=== PATIENT | female | born 1955 | race Caucasian/White ===

== ENCOUNTER 2017-03-07 12:57 | Emergency (ER) | payer MEDICAID ==
[2017-03-07 13:02] VITALS: BMI 44.4
[2017-03-07 13:35] LABS: BASOPHILS # (AUTO) 0.1 X10^3/uL (0.0-0.1); BASOPHILS % (AUTO) 1.3 % (0.2-1.0); EOSINOPHILS # (AUTO) 0.1 x10^3/uL (0.0-0.2); EOSINOPHILS % (AUTO) 1.1 % (0.9-2.9); HEMATOCRIT 38.4 % (36.0-47.0); LYMPHOCYTES # (AUTO) 1.9 X10^3/uL (1.3-2.9); LYMPHOCYTES % (AUTO) 18.2 % (21.0-51.0); MEAN CORPUSCULAR HEMOGLOBIN 32.7 pg (27.0-34.0); MEAN CORPUSCULAR VOLUME 96.2 fL (80.0-100.0); MEAN PLATELET VOLUME 8.5 fL (7.4-11.0); MONOCYTES # (AUTO) 0.8 x10^3/uL (0.3-0.8); MONOCYTES % (AUTO) 7.9 % (0.0-13.0); NEUTROPHILS # (AUTO) 7.5 x10^3/uL (2.2-4.8); NEUTROPHILS % (AUTO) 71.5 % (42.0-75.0); PLATELET COUNT 248 X10^3/uL (150.0-450.0); RED BLOOD COUNT 3.99 X10^6/uL (3.5-5.4); RED CELL DISTRIBUTION WIDTH 13.3 % (11.6-16.5); WHITE BLOOD COUNT 10.5 X10^3/uL (3.6-10.0)
[2017-03-07 13:53] LABS: BLOOD UREA NITROGEN 16 mg/dL (7-18); CALCIUM 8.2 mg/dL (8.5-10.1); CARBON DIOXIDE 35.6 mmol/L (21-32); CHLORIDE 100 mmol/L (98-107); CREATININE 1.29 mg/dL (0.55-1.02); GLUCOSE 86 mg/dL (65-99); SODIUM 139 mmol/L (136-145); TROPONIN I < 0.02 ng/mL (0-1.5); eGFR BLACK RACES 54 (>60); eGFR NON BLACK RACES 44 (>60)
[2017-03-07 13:57] LABS: ALANINE AMINOTRANSFERASE 33 Units/L (12-78); ALKALINE PHOSPHATASE 94 Units/L (46-116); ASPARTATE AMINO TRANSFERASE 20 Units/L (15-37); CKMB % 1.7 % (<4); CREATINE KINASE 127 Units/L (26-192); CREATINE KINASE MB 2.1 ng/mL (0-4.0); MAGNESIUM 1.9 mg/dL (1.7-2.9); TOTAL PROTEIN 6.6 g/dL (6.4-8.2)
--- NOTE | 2017-03-07 13:58 | RAD ---
Chest, one view Indication: Chest pain, shortness of breath Comparison: July 19, 2016 Findings: The cardiac silhouette is normal in size for AP technique. There are stable chronic inters titial markings bilaterally with new streaky right basilar opacities, likely reflecting atelectasis. No focal infiltrate or significant effusion is identified. Right-sided subclavian Port-A-Cath appea rs well positioned without pneumothorax. Impression: No acute cardiopulmonary disease. Reported By:
[2017-03-07] MEDS ORDERED: NS 1000 ML 1,000 ML ONE (14:13)
[2017-03-07] MEDS ORDERED: NS 1000 ML 200 ML IV ONE (14:18)
--- NOTE | 2017-03-07 14:22 | DR.GENAD ---
HPI - PCP Primary Care Physician: YADIRA - Complaint/Symptoms Chief Complaint Doctors Comments: Abdominal pain with N/V/D Chief Complaint:: PATIENT STATED SHE HAS BEEN SHORT OF BREATH AND SWELLING - Nurses notes reviewed Nurses Notes Review: Yes - Source History Provided: Patient - Mode of Arrival Mode of Arrival: Ambulatory - Timing Onset of Chief Complaint: 03/05/17 Came on: Gradually - Duration Duration: Intermittent How lon Duration: Days - Severity Severity: Moderate - Associated Signs and Symptoms Associated Signs and Symptoms: abdominal pain ,nausea and vomiting and diarrhea PMH - PMH Past Medical History: Yes Past Medical History: Anxiety, Arthritis, Asthma, COPD, Coronary Artery Disease , GERD, Hypertension Past Surgical History: Yes Surgical History: Hysterectomy, Ortho Surgery - Family History History of Family Medical Conditions: Yes Family Medical History: Hypertension - Social History Does patient currently use any type of tobacco product: Yes Have you used tobacco products in the last 12 months: Yes Type of Tobacco Use: Cigarettes How many years tobacco product used: 30 Does any household member use tobacco: No Alcohol Use: None Do you use any recreational Drugs:: No Lives With: Family Lives Where: Home - infectious screening In the last 2 months have you had wt loss of >10#?: NO Have you had fever, night sweats or hemotysis?: No Have you traveled outside the country in the last 6 months?: No Isolation: Standard ROS - Review of Systems Constitutional: Malaise, Weakness Eyes: No Symptoms Reported ENTM: No Symptoms Reported Respiratoy: No Symptoms Reported Cardiovascular: No Symptoms Reported Gastrointestinal/Abdominal: Abdominal Pain, Diarrhea, Nausea, Vomiting Genitourinary: No Symptoms Reported Neurological: No Symptoms Reported Integumentary: No Symptoms Reported Hematologic/Lymphatic: No Symptoms Reported Endocrine: No Symptoms Reported Psychiatric: No Symptoms Reported All Other Systems: Reviewed and Negative PE - Vital Signs Vitals: Temperature 98.9 F Pulse Rate 80 Respiratory Rate 20 Blood Pressure [Left Arm] 138/78 Blood Pressure [Right Arm] 133/74 Blood Pressure 95/56 O2 Sat by Pulse Oximetry 90 - General Limitations: No Limitations General Appearance: Alert, In No Apparent Distress - Head Head Exam: Normal Inspection - Eyes Eye exam: Normal Appearance, PERRL, EOMI - ENT ENT Exam: Normal Oropharynx External Ear Exam: Normal External Inspection Nose Exam: Normal Nose Exam Mouth Exam: Normal Inspection Throat Exam: Normal Inspection - Neck Neck Exam: Normal Inspection, Full ROM, Trachea Midline - Chest Chest Inspection: Normal Inspection, Symmetric Chest Wall Rise - Respiratory Respiratory Exam: Normal Lung Sounds Bilat Respiratory Exam: Bilateral Clear to Auscultation - Cardiovascular Cardiovascular Exam: Regular Rate, Normal Rhythm, Normal Heart Sounds - Abdominal Exam Abdominal Exam: Normal Inspection, Soft, Tenderness, Hyperactive Bowel Sounds Abdominal Tenderness: LLQ, Epigastrium - Extremities Extremities Exam: Normal Inspection - Back Back Exam: Normal Inspection - Neurologic Neurological Exam: Alert, Oriented X3, CN II-XII Intact - Psychiatric Psychiatric Exam: Normal Affect, Normal Mood - Skin Skin Exam: Warm, Dry, Intact, Normal Color ROR - Labs Reviewed Result Diagrams: 03/07/17 13:24 03/07/17 13:24 Laboratory: WBC 10.5 X10^3/uL (3.6-10.0) H 03/07/17 13:24 RBC 3.99 X10^6/uL (3.5-5.4) 03/07/17 13:24 Hgb 13.0 g/dL (12.0-16.0) 03/07/17 13:24 Hct 38.4 % (36.0-47.0) 03/07/17 13:24 MCV 96.2 fL (80.0-100.0) 03/07/17 13:24 MCH 32.7 pg (27.0-34.0) 03/07/17 13:24 MCHC 34.0 g/dL (33.0-35.0) 03/07/17 13:24 RDW 13.3 % (11.6-16.5) 03/07/17 13:24 Plt Count 248 X10^3/uL (150.0-450.0) 03/07/17 13:24 MPV 8.5 fL (7.4-11.0) 03/07/17 13:24 Neut % 71.5 % (42.0-75.0) 03/07/17 13:24 Lymph % 18.2 % (21.0-51.0) L 03/07/17 13:24 [place] % 7.9 % (0.0-13.0) 03/07/17 13:24 Eos % 1.1 % (0.9-2.9) 03/07/17 13:24 Baso % 1.3 % (0.2-1.0) H 03/07/17 13:24 Neut # 7.5 x10^3/uL (2.2-4.8) H 03/07/17 13:24 Lymph # 1.9 X10^3/uL (1.3-2.9) 03/07/17 13:24 [place] # 0.8 x10^3/uL (0.3-0.8) 03/07/17 13:24 Eos # 0.1 x10^3/uL (0.0-0.2) 03/07/17 13:24 Baso # 0.1 X10^3/uL (0.0-0.1) 03/07/17 13:24 Absolute Nucleated RBC 0.1 /100WBC 03/07/17 13:24 INR Target Range - 03/07/17 13:56 INR 0.97 (0.8-1.3) 03/07/17 13:56 PTT 26.6 SECONDS (22.9-36.5) 03/07/17 13:56 PTT Comment - 03/07/17 13:56 D-Dimer 519 ng/mL (0-400) H* 03/07/17 13:24 Sodium 139 mmol/L (136-145) 03/07/17 13:24 Corrected Sodium TNP 03/07/17 13:24 Potassium 4.1 mmol/L (3.5-5.1) 03/07/17 13:24 Chloride 100 mmol/L (98-107) 03/07/17 13:24 Carbon Dioxide 35.6 mmol/L (21-32) H 03/07/17 13:24 BUN 16 mg/dL (7-18) 03/07/17 13:24 Creatinine 1.29 mg/dL (0.55-1.02) H 03/07/17 13:24 Est GFR (MDRD) Af Amer 54 (>60) L 03/07/17 13:24 Est GFR (MDRD) Non-Af 44 (>60) L 03/07/17 13:24 Glucose 86 mg/dL (65-99) 03/07/17 13:24 Calcium 8.2 mg/dL (8.5-10.1) L 03/07/17 13:24 Corrected Calcium 9.0 mg/dL (8.5-10.1) 03/07/17 13:24 Magnesium 1.9 mg/dL (1.7-2.9) 03/07/17 13:24 Total Bilirubin 0.50 mg/dL (0.2-1.0) 03/07/17 13:24 AST 20 Units/L (15-37) 03/07/17 13:24 ALT 33 Units/L (12-78) 03/07/17 13:24 Alkaline Phosphatase 94 Units/L (46-116) 03/07/17 13:24 Creatine Kinase 127 Units/L (26-192) 03/07/17 13:24 CK-MB (CK-2) 2.1 ng/mL (0-4.0) 03/07/17 13:24 CK/CKMB % Calc 1.7 % (<4) 03/07/17 13:24 Troponin I < 0.02 ng/mL (0-1.5) 03/07/17 13:24 Total Protein 6.6 g/dL (6.4-8.2) 03/07/17 13:24 Albumin 3.0 g/dL (3.4-5.0) L 03/07/17 13:24 Globulin 3.6 g/dL (2.5-4.5) 03/07/17 13:24 Albumin/Globulin Ratio 0.8 Ratio (1.1-2.1) L 03/07/17 13:24 - Diagnosis Discharge Problem: COPD (chronic obstructive pulmonary disease), Abdominal pain - Discharge Plan Disposition: 01 HOME, SELF-CARE Condition: Stable - Follow ups/Referrals Follow ups/Referrals: DAVONTE MAY [Primary Care Provider] - 3 days - Instructions Instructions: Nausea, Adult, Shortness of Breath, [id number], Chronic Obstructive Pulmonary Disease, Acute Bronchitis, [id number]
[2017-03-07 14:24] LABS: D DIMER 519 ng/mL (0-400)
--- NOTE | 2017-03-07 15:03 | CT ---
HISTORY: Shortness of breath Study: CT chest without con Comparison: January 06, 2016 Technique: Axial non contrast images with coronal and sagittal reformats. Dose reduction procedures were used with MA/kv adjusted for body size. Findings: Examination of the mediastinum demonstrated no evidence for mediastinal masses, enlarged lymphadenop athy, or enlarged hilar adenopathy. Coronary artery calcifications are present. No pleural effusions are identified. No chest wall or axillary abnormality is identified. Those portions of the upper ab dominal organs visualized were within normal limits to the limitations of an unenhanced examination. Examination of the lung clifton demonstrated mild interstitial lung changes to be present bilaterall y more prominent in the bases than in the upper lobes. There is peribronchial thickening consistent with bronchitis which could be acute, chronic, or both. No alveolar infiltrates, nodules, masses, ar eas of consolidation or bronchiectasis are identified. IMPRESSION: Mild interstitial lung changes stable when compared with the prior examination. Peribronchial thickening consistent with bronchitis which could be acute, chronic, or both and are n ot significantly changed from the prior examination Reported By:
--- NOTE | 2017-03-07 15:05 | CT ---
CT abdomen and pelvis without contrast Indication: Abdominal pain, swelling Comparison: 11/17/2013 Technique: CT images of the abdomen and pelvis were obtained without contrast. Automatic exposure co ntrol was utilized. Findings: Multiple thin-walled cysts are seen within the lung bases. There are mild interstitial kecia nges of the lung bases, slightly more prominent on the left. No acute consolidation or pleural effus ion. No aggressive osseous lesion. The gallbladder is surgically absent. Within the limitations of a noncontrast study, the liver, sple en, stomach, duodenum, pancreas, adrenals, and kidneys demonstrate no significant abnormality. Small probable renal cysts are noted bilaterally. A portion of the descending colon is excluded from the field of view. No significant bowel thickening or dilatation of the visualized lower GI tract is werner ntified. The appendix is absent, per history. The uterus is absent. The urinary bladder and rectum a re unremarkable. No free fluid or adenopathy identified. Impression: No acute process identified to explain patient's symptoms. Reported By:
[2017-03-07] MEDS ORDERED: NS 100 ML IV 100 ML IV ONE (15:46)
--- NOTE | 2017-03-07 16:29 | CT ---
History: Shortness of breath and elevated D-dimer Study: CTA chest with contrast. Sagittal and coronal MIPS of the pulmonary arteries were displayed. Comparison: January 06, 2016 Findings: There is a irregular patchy scar in the lingula unchanged. There is no new lung consolidat ion and there is no pleural effusion. There are some emphysematous changes and blebs in there is hyp erinflation. There is no mediastinal or hilar adenopathy. No pulmonary embolus is demonstrated. Ther e is no aortic dissection. The visualized upper abdomen is unremarkable. Impression: 1. No evidence for pulmonary embolus 2. COPD and emphysema Reported By:
[2017-03-07 17:27] VITALS: BP 98/53
== END 2017-03-07 17:19 | disposition home or self-care (01) ==
LOC: ER 13:10
DX: J44.9 Chronic obstructive pulmonary disease, unspecified (principal); R10.32 Left lower quadrant pain
CPT/HCPCS: 36415; 36591; 71010; 71250; 71275; 74176; 80053; 82550; 82553; 83735; 84484; 85025; 85378; 85610; 85730; 93005; 93010; 96365; 99283; A4222

== ENCOUNTER 2017-04-30 23:23 | Emergency (ER) | payer MEDICAID ==
[2017-04-30 23:35] VITALS: BP 135/84; BMI 44.2
[2017-04-30] MEDS ORDERED: ZOFRAN INJ 4 MG VIAL IVP ONE (23:48)
[2017-04-30] MEDS ORDERED: NS 1000 ML 1,000 ML IV ONE (23:48)
[2017-04-30] MEDS ORDERED: NS 1000 ML 1,000 ML ONE (23:48)
--- NOTE | 2017-04-30 23:48 | DR.GENAD ---
HPI - Complaint/Symptoms Chief Complaint Doctors Comments: Patient admits to falling off naga three days and injured her right arm and hand. She admits to having COPD and not using her medication. She is on home oxygen. She denies fever. Chief Complaint:: N/V/D, SWELLING EXTREMITIES - Source History Provided: Patient - Mode of Arrival Mode of Arrival: Stretcher - Timing Onset of Chief Complaint: 04/25/17 PMH - PMH Past Medical History: Yes Past Medical History: Anxiety, Arthritis, Asthma, COPD, Coronary Artery Disease , GERD, Hypertension Past Surgical History: Yes Surgical History: Hysterectomy, Ortho Surgery - Family History History of Family Medical Conditions: Yes Family Medical History: Hypertension - Social History Do you use any recreational Drugs:: No - infectious screening Have you traveled outside the country in the last 6 months?: No ROS - Review of Systems Eyes: No Symptoms Reported ENTM: No Symptoms Reported Respiratoy: No Symptoms Reported Cardiovascular: No Symptoms Reported Gastrointestinal/Abdominal: No Symptoms Reported Genitourinary: No Symptoms Reported Neurological: No Symptoms Reported Musculoskeletal: No Symptoms Reported Integumentary: No Symptoms Reported Hematologic/Lymphatic: No Symptoms Reported Endocrine: No Symptoms Reported Psychiatric: No Symptoms Reported All Other Systems: Reviewed and Negative PE - Vital Signs Vitals: Temperature 97.8 F Pulse Rate 85 Respiratory Rate 20 Blood Pressure [Left Arm] 98/53 Blood Pressure [Right Arm] 133/74 Blood Pressure 135/84 O2 Sat by Pulse Oximetry 96 - General General Appearance: Alert, In No Apparent Distress - Head Head Exam: Normal Inspection, Atraumatic - Eyes Eye exam: Normal Appearance, PERRL, EOMI - ENT ENT Exam: Normal Exam External Ear Exam: Normal External Inspection TM/Canal Exam: Bilateral Normal Nose Exam: Normal Nose Exam Mouth Exam: Normal Inspection Throat Exam: Normal Inspection - Neck Neck Exam: Normal Inspection, Full ROM - Chest Chest Inspection: Normal Inspection - Respiratory Respiratory Exam: Normal Lung Sounds Bilat Respiratory Exam: Bilateral Clear to Auscultation - Cardiovascular Cardiovascular Exam: Regular Rate, Normal Rhythm - Abdominal Exam Abdominal Exam: Normal Inspection Abdominal Tenderness: negative: RUQ, RLQ, LUQ, LLQ, Epigastrium, Suprapubic, Diffuse, Mild, Moderate, Severe, Other - Extremities Extremities Exam: Normal Inspection, Tenderness (ecohomotic lesion right upper extremity) - Back Back Exam: Normal Inspection, Full ROM - Neurologic Neurological Exam: Alert, Oriented X3, CN II-XII Intact - Psychiatric Psychiatric Exam: Normal Affect, Normal Mood, Depressed - Skin Skin Exam: Warm, Dry, Intact ROR - Labs Reviewed Result Diagrams: 05/01/17 00:00 05/01/17 00:00 Laboratory: WBC 7.1 X10^3/uL (3.6-10.0) 05/01/17 00:00 RBC 4.07 X10^6/uL (3.5-5.4) 05/01/17 00:00 Hgb 12.9 g/dL (12.0-16.0) 05/01/17 00:00 Hct 38.9 % (36.0-47.0) 05/01/17 00:00 MCV 95.6 fL (80.0-100.0) 05/01/17 00:00 MCH 31.7 pg (27.0-34.0) 05/01/17 00:00 MCHC 33.2 g/dL (33.0-35.0) 05/01/17 00:00 RDW 14.3 % (11.6-16.5) 05/01/17 00:00 Plt Count 201 X10^3/uL (150.0-450.0) 05/01/17 00:00 MPV 8.7 fL (7.4-11.0) 05/01/17 00:00 Neut % 68.0 % (42.0-75.0) 05/01/17 00:00 Lymph % 19.6 % (21.0-51.0) L 05/01/17 00:00 [place] % 9.1 % (0.0-13.0) 05/01/17 00:00 Eos % 1.8 % (0.9-2.9) 05/01/17 00:00 Baso % 1.5 % (0.2-1.0) H 05/01/17 00:00 Neut # 4.8 x10^3/uL (2.2-4.8) 05/01/17 00:00 Lymph # 1.4 X10^3/uL (1.3-2.9) 05/01/17 00:00 [place] # 0.6 x10^3/uL (0.3-0.8) 05/01/17 00:00 Eos # 0.1 x10^3/uL (0.0-0.2) 05/01/17 00:00 Baso # 0.1 X10^3/uL (0.0-0.1) 05/01/17 00:00 Absolute Nucleated RBC 0.1 /100WBC 05/01/17 00:00 Sodium 142 mmol/L (136-145) 05/01/17 00:00 Corrected Sodium TNP 05/01/17 00:00 Potassium 4.1 mmol/L (3.5-5.1) 05/01/17 00:00 Chloride 105 mmol/L (98-107) 05/01/17 00:00 Carbon Dioxide 28.0 mmol/L (21-32) 05/01/17 00:00 BUN 15 mg/dL (7-18) 05/01/17 00:00 Creatinine 1.05 mg/dL (0.55-1.02) H 05/01/17 00:00 Est GFR (MDRD) Af Amer > 60 (>60) 05/01/17 00:00 Est GFR (MDRD) Non-Af 56 (>60) L 05/01/17 00:00 Glucose 96 mg/dL (65-99) 05/01/17 00:00 Calcium 8.9 mg/dL (8.5-10.1) 05/01/17 00:00 Corrected Calcium 9.5 mg/dL (8.5-10.1) 05/01/17 00:00 Total Bilirubin 0.40 mg/dL (0.2-1.0) 05/01/17 00:00 AST 18 Units/L (15-37) 05/01/17 00:00 ALT 19 Units/L (12-78) 05/01/17 00:00 Alkaline Phosphatase 100 Units/L (46-116) 05/01/17 00:00 Total Protein 6.7 g/dL (6.4-8.2) 05/01/17 00:00 Albumin 3.3 g/dL (3.4-5.0) L 05/01/17 00:00 Globulin 3.4 g/dL (2.5-4.5) 05/01/17 00:00 Albumin/Globulin Ratio 1.0 Ratio (1.1-2.1) L 05/01/17 00:00 - XRAY XRAY Interpreted by: Radiologist (Chest: There is mild cardiomegaly and central vascular congestion) - Diagnosis Discharge Problem: Fall Qualifiers: Encounter type: initial encounter Qualified Code(s): W19.XXXA - Unspecified fall, initial encounter Abrasion of hand Qualifiers: Encounter type: initial encounter Laterality: right Qualified Code(s): S60.511A - Abrasion of right hand, initial encounter - Discharge Plan Condition: Stable - Follow ups/Referrals Follow ups/Referrals: NFD,None [Primary Care Provider] - 3 days - Instructions
[2017-04-30] MEDS ORDERED: DECADRON JET NEB (RESP USE) NEB ONE (23:49)
[2017-04-30] MEDS ORDERED: ZOFRAN INJ 4 MG VIAL ONE (23:49)
[2017-04-30] MEDS ORDERED: DUONEB 0.5 MG/3 MG NEB ONE (23:49)
[2017-05-01] MEDS ORDERED: DUONEB 0.5 MG/3 MG ONE (00:10)
[2017-05-01] MEDS ORDERED: DECADRON JET NEB (RESP USE) NEB ONE (00:10)
[2017-05-01 00:19] LABS: BASOPHILS # (AUTO) 0.1 X10^3/uL (0.0-0.1); BASOPHILS % (AUTO) 1.5 % (0.2-1.0); EOSINOPHILS # (AUTO) 0.1 x10^3/uL (0.0-0.2); EOSINOPHILS % (AUTO) 1.8 % (0.9-2.9); HEMATOCRIT 38.9 % (36.0-47.0); HEMOGLOBIN 12.9 g/dL (12.0-16.0); LYMPHOCYTES # (AUTO) 1.4 X10^3/uL (1.3-2.9); LYMPHOCYTES % (AUTO) 19.6 % (21.0-51.0); MEAN CORPUSCULAR HEMOGLOBIN 31.7 pg (27.0-34.0); MEAN CORPUSCULAR HGB CONC 33.2 g/dL (33.0-35.0); MEAN CORPUSCULAR VOLUME 95.6 fL (80.0-100.0); MEAN PLATELET VOLUME 8.7 fL (7.4-11.0); MONOCYTES # (AUTO) 0.6 x10^3/uL (0.3-0.8); MONOCYTES % (AUTO) 9.1 % (0.0-13.0); NEUTROPHILS # (AUTO) 4.8 x10^3/uL (2.2-4.8); PLATELET COUNT 201 X10^3/uL (150.0-450.0); RED BLOOD COUNT 4.07 X10^6/uL (3.5-5.4); RED CELL DISTRIBUTION WIDTH 14.3 % (11.6-16.5); WHITE BLOOD COUNT 7.1 X10^3/uL (3.6-10.0)
[2017-05-01 00:31] LABS: ALANINE AMINOTRANSFERASE 19 Units/L (12-78); ALBUMIN 3.3 g/dL (3.4-5.0); ALKALINE PHOSPHATASE 100 Units/L (46-116); ASPARTATE AMINO TRANSFERASE 18 Units/L (15-37); BLOOD UREA NITROGEN 15 mg/dL (7-18); CALCIUM 8.9 mg/dL (8.5-10.1); CHLORIDE 105 mmol/L (98-107); COR CA(FOR HYPOALB) 9.5 mg/dL (8.5-10.1); CREATININE 1.05 mg/dL (0.55-1.02); SODIUM 142 mmol/L (136-145); TOTAL PROTEIN 6.7 g/dL (6.4-8.2); eGFR BLACK RACES > 60 (>60); eGFR NON BLACK RACES 56 (>60)
--- NOTE | 2017-05-01 00:58 | RAD ---
EXAM: Chest X-ray INDICATION: Dyspnea COMPARISION: Prior exam from March 07, 2017 TECHNIQUE: Single view FINDINGS: The lungs are clear and the lung volumes are within normal limits. No pleural effusion or pneumothora x. The cardiac silhouette is mildly enlarged and there central vascular congestion. The regional ske leton is intact. Right brock catheter tip is in the superior vena cava. IMPRESSION: There is mild cardiomegaly and central vascular congestion. Reported By:
== END 2017-05-01 02:04 | disposition home or self-care (01) ==
LOC: ER 23:35
DX: S60.511A Abrasion of right hand, initial encounter (principal); W19.XXXA Unspecified fall, initial encounter; Y92.9 Unspecified place or not applicable
CPT/HCPCS: 36415; 71010; 80053; 85025; 96365; 96374; 99282; 99283; J2405; J7620

== ENCOUNTER 2017-05-09 10:15 | Inpatient (IN) | payer OTHER, MEDICAID ==
--- NOTE | 2017-05-09 11:39 | RAD ---
HISTORY: Shortness of breath Study: Chest AP portable Comparison: May 01, 2017 Findings: There is a port present on the right. The heart is upper limits normal in size. Mild pulmonary venous congestion is present. No interstitial edema, alveolar edema, or alveolar infiltrates are identified . The lungs are hyperinflated. No pleural effusions are present. IMPRESSION: Mild pulmonary venous congestion. Lungs hyperinflated but free of acute infiltrates Reported By:
[2017-05-09] MEDS ORDERED: XOPENEX 1.25 MG/3 ML NEBULE NEB ONE (11:46)
[2017-05-09 11:48] LABS: BASOPHILS # (AUTO) 0.1 X10^3/uL (0.0-0.1); BASOPHILS % (AUTO) 1.3 % (0.2-1.0); EOSINOPHILS # (AUTO) 0.3 x10^3/uL (0.0-0.2); EOSINOPHILS % (AUTO) 2.9 % (0.9-2.9); HEMATOCRIT 39.8 % (36.0-47.0); HEMOGLOBIN 13.2 g/dL (12.0-16.0); LYMPHOCYTES % (AUTO) 22.1 % (21.0-51.0); MEAN CORPUSCULAR HGB CONC 33.2 g/dL (33.0-35.0); MEAN CORPUSCULAR VOLUME 96.6 fL (80.0-100.0); MEAN PLATELET VOLUME 9.1 fL (7.4-11.0); MONOCYTES # (AUTO) 0.7 x10^3/uL (0.3-0.8); MONOCYTES % (AUTO) 7.9 % (0.0-13.0); NEUTROPHILS # (AUTO) 5.9 x10^3/uL (2.2-4.8); NEUTROPHILS % (AUTO) 65.8 % (42.0-75.0); PLATELET COUNT 258 X10^3/uL (150.0-450.0); RED BLOOD COUNT 4.12 X10^6/uL (3.5-5.4); RED CELL DISTRIBUTION WIDTH 14.1 % (11.6-16.5); WHITE BLOOD COUNT 8.9 X10^3/uL (3.6-10.0)
[2017-05-09 11:53] LABS: ALANINE AMINOTRANSFERASE 21 Units/L (12-78); ALBUMIN 3.4 g/dL (3.4-5.0); ALKALINE PHOSPHATASE 98 Units/L (46-116); ASPARTATE AMINO TRANSFERASE 20 Units/L (15-37); BLOOD UREA NITROGEN 15 mg/dL (7-18); CALCIUM 9.2 mg/dL (8.5-10.1); CARBON DIOXIDE 29.9 mmol/L (21-32); CHLORIDE 104 mmol/L (98-107); CREATININE 1.23 mg/dL (0.55-1.02); MAGNESIUM 1.8 mg/dL (1.7-2.9); SODIUM 141 mmol/L (136-145); eGFR BLACK RACES 57 (>60); eGFR NON BLACK RACES 47 (>60)
[2017-05-09 12:12] LABS: BILIRUBIN,URINE NEGATIVE (NEGATIVE); BLOOD/HEMOGLOBIN,URINE NEGATIVE (NEGATIVE); GLUCOSE, URINE NEGATIVE (NEGATIVE); KETONES,URINE NEGATIVE (NEGATIVE); LEUKOCYTE ESTERASE ,URINE NEGATIVE (NEGATIVE); NITRITES,URINE NEGATIVE (NEGATIVE); PROTEIN,URINE NEGATIVE (NEGATIVE); UROBILINOGEN,URINE NORMAL (NORMAL)
[2017-05-09 12:13] LABS: ABG ALLEN TEST POS; ABG BASE EXCESS 5.4 mmol/L (-2.0-2.0); ABG HCO3 31.9 mmol/L (22-26); FRACTIONATED INSPIRED OXYGEN 32
[2017-05-09] MEDS: XOPENEX 1.25 MG/3 ML NEBULE NEB SCH ×2 (12:28→16:39)
[2017-05-09 12:31] LABS: APPEARANCE,URINE CLEAR (CLEAR); BACTERIA,URINE NEGATIVE /HPF (NEGATIVE); COLOR,URINE YELLOW (YELLOW); RBC,URINE 0-2 /HPF (NEGATIVE); SQUAMOUS EPITHELIAL CELL,UR NEGATIVE /HPF (NEGATIVE)
[2017-05-09 12:53] VITALS: BMI 44.4
[2017-05-09] MEDS ORDERED: NS 500 ML IV 500 ML IV ONE (13:41)
--- NOTE | 2017-05-09 13:49 | DR.H&P ---
H&P - History & Physical for Day of: H&P Date: 05/09/17 - Chief Complaint Chief Complaint: SOB, COUGH AND WHEEZING, SWELLING - Allergies Allergies/Adverse Reactions: Allergies Allergy/AdvReac Type Severity Reaction Status Date / Time ketorolac [From Toradol] Allergy Verified 04/30/17 23:35 nalbuphine [From Nubain] Allergy Verified 04/30/17 23:35 Penicillins Allergy Verified 04/30/17 23:35 Sulfa (Sulfonamide Allergy Verified 04/30/17 23:35 Antibiotics) [SULFA] BETA BLOCKERS Allergy Uncoded 04/30/17 23:35 - History of Present Illness History of Present Illness: patient is a 62-year-old white female who was a direct admit from Dr. Coley's office after presenting for ER follow-up with increased shortness of breath cough and wheezing and severe lower extremity edema. Patient has a history of COPD and CHF. Patient had increased Lasix at home and was given by mouth antibiotics after her visit from the ER without improvement. Plan to admit for further evaluation, IV steroids and IV antibiotics, IV Lasix EKG and chest x-ray on admission. Respiratory therapy blood and sputum cultures. - Past Medical History Past Medical History: Anxiety, Arthritis, Asthma, COPD, Coronary Artery Disease , GERD, Hypertension - Past Surgical History Surgical History: Abdominal Surgery, Appendectomy, Cholecystectomy - Family History Family Medical History: Coronary Artery Disease, Hypertension - Social History Does patient currently use any type of tobacco product: Yes Have you used tobacco products in the last 12 months: Yes Type of Tobacco Use: Cigarettes How many years tobacco product used: 50 Packs per day or dips/chews per day: 1 Alcohol Use: None Drug Use: None - Medications Home Medications: Fluticasone-Salmeterol 500/50 [ADVAIR DISKUS 500/50 60-DOSE *] 1 puff INH BID [History Confirmed 05/09/17] Ipratropium/Albuterol Sulfate [Combivent Respimat Inhaler] 1 puff INH QID [History Confirmed 05/09/17] Levocetirizine Dihydrochloride 1 tab PO DAILY 05/09/17 [History Confirmed ] Potassium Chloride 20 meq PO DAILY 05/09/17 [History Confirmed 05/09/17] Tiotropium [place] Monohydrate [SPIRIVA HANDIHALER (30 DOSE) *] 1 inh INH DAILY 05/09/17 [History Confirmed 05/09/17] Tizanidine HCl 4 mg PO TID 05/09/17 [History Confirmed 05/09/17] Zolpidem Tartrate 1 tab PO DAILY 05/09/17 [History Confirmed 05/09/17] - Review of Systems Constitutional: Chills, Weakness Eyes: No Symptoms Reported ENT: No Symptoms Reported Respiratory: Cough, Shortness of Breath, SOB with Excertion, Wheezing Cardiovascular: No Symptoms Reported, Edema Gastrointestinal: Nausea Genitourinary: No Symptoms Reported Musculoskeletal: Back Pain, Leg Pain Skin: No Symptoms Reported Neurological: Weakness - Physical Exam Vital Signs: Temperature 98.4 F Pulse Rate [Left Radial] 80 Respiratory Rate 16 Blood Pressure [Left Arm] 126/70 Blood Pressure [Right Arm] 133/74 Blood Pressure 135/84 O2 Sat by Pulse Oximetry 98 Oriented: Normal Eyes: Normal Ear: Normal Nose: Normal Throat: Normal Respiratory: Wheezes Throughout, RLL Diminished, LLL Diminished Cardiovascular: Tachycardia, Edema (+ 3 EDEMA TO BILATERAL LOWER EXTREMITIES) : Normal Auscultation: Bowel Sounds: Normal Palpation: Normal Tenderness: Normal Skin: Decreased [place], Bruising Musculoskeletal: Right, Left, Hip, Back:Lumbar, Instability Psychiatric: Anxiety Mood Description: Calm Speech Pattern: Clear, Appropriate - Assessment/Plan (1) COPD exacerbation Status: Acute Plan: ADMIT ICU STEP DOWN, PNEUMONIA PROTOCOL. BLOOD AND SPUTUM COLLECTIONS. IV ATBX, IV SOLU MEDROL, RESP THERAPY, ABG ON ADMISSION. SUPPLEMENTAL O2,. CARDIAC MONITORING, EKG ON ADMISSION. RESUME HOME MEDS, BP AND LIPID CONTROL (2) CHF (congestive heart failure) Qualifiers: Congestive heart failure type: unspecified congestive heart failure type Status: Acute Plan: LASIX IV BID, CARDIAC MONITORING (3) DDD (degenerative disc disease), lumbosacral Status: Chronic (4) DHARA (generalized anxiety disorder) Status: Chronic (5) GERD (gastroesophageal reflux disease) Status: Chronic (6) Hypertension Qualifiers: Hypertension type: essential hypertension Qualified Code(s): I10 - Essential (primary) hypertension Status: Chronic
[2017-05-09] MEDS ORDERED: XANAX PO PRN (13:52)
[2017-05-09] MEDS: SOLU-Medrol 125 MG VIAL IVP SCH ×4 (14:00→21:15)
[2017-05-09] MEDS: LASIX IVP SCH ×2 (14:00→20:16)
[2017-05-09] MEDS: LEVAQUIN PREMIX IV 500 MG 500 MG/100 ML BAG IV SCH (14:00)
[2017-05-09] MEDS: ZANAFLEX PO SCH ×2 (14:04→21:15)
[2017-05-09] MEDS: NEURONTIN CAP 300 MG PO PRN (15:48)
[2017-05-09] MEDS ORDERED: Atrovent NEB TX 0.02% ONE (15:55)
[2017-05-09] MEDS ORDERED: NORCO 5/325 MG TAB ONE (15:59)
[2017-05-09] MEDS: NORCO 5/325 MG TAB PO PRN ×2 (16:01→20:17)
[2017-05-09] MEDS: Atrovent NEB TX 0.02% NEB SCH (16:40)
[2017-05-09] MEDS ORDERED: ALBUTEROL SULFATE INH SCH (17:00)
[2017-05-09] MEDS ORDERED: IPRATROPIUM INH SCH (17:00)
[2017-05-09] MEDS ORDERED: Atrovent NEB TX 0.02% NEB SCH (17:00)
[2017-05-09] MEDS ORDERED: [UNRECOGNIZED DRUG - OTHER] INH SCH (17:00)
[2017-05-09] MEDS ORDERED: PROVENTIL NEB TX 0.083% 2.5MG/ 3ML NEB SCH (17:00)
[2017-05-09] MEDS: ZANTAC PO SCH (20:17)
[2017-05-09] MEDS: REQUIP PO SCH (20:17)
[2017-05-09] MEDS: AMBIEN PO PRN (20:17)
[2017-05-09] MEDS ORDERED: PATIENT'S HOME MEDICATION (Fluticasone-Salmeterol 500/50 1 PUFF) INH SCH (21:00)
[2017-05-09] MEDS: PROVENTIL NEB TX 0.083% 2.5MG/ 3ML NEB SCH (21:14)
[2017-05-09] MEDS: PULMICORT NEB TX 0.5 MG NEB SCH (21:14)
[2017-05-09] MEDS ORDERED: PEPCID 20 MG IV PREMIX* 20 MG/50 ML BAG IV ONE ×2 (23:10→23:45)
[2017-05-09] MEDS: ZOFRAN INJ 4 MG VIAL IVP PRN (23:36)
[2017-05-09] MEDS ORDERED: PEPCID 20 MG IV PREMIX* 50 ML IV SCH (23:45)
[2017-05-09] MEDS ORDERED: PEPCID 20 MG IV PREMIX* 20 MG/50 ML BAG IV SCH (23:45)
[2017-05-10] MEDS: XOPENEX 1.25 MG/3 ML NEBULE NEB SCH ×5 (00:56→16:21)
[2017-05-10] MEDS: Atrovent NEB TX 0.02% NEB SCH ×5 (00:56→16:21)
[2017-05-10] MEDS: NORCO 5/325 MG TAB PO PRN ×3 (01:55→17:08)
[2017-05-10] MEDS: PHENERGAN INJ 25 MG IV PRN (04:30)
[2017-05-10] MEDS: ZANAFLEX PO SCH ×3 (05:35→22:09)
[2017-05-10] MEDS: CARDIZEM CD 240 MG PO SCH (08:39)
[2017-05-10] MEDS: ALDACTONE TAB 25 MG PO SCH (08:39)
[2017-05-10] MEDS: ZANTAC PO SCH ×2 (08:39→20:18)
[2017-05-10] MEDS: PriLOSEC PO SCH (08:39)
[2017-05-10] MEDS: SINGULAIR TAB 10 MG PO SCH (08:39)
[2017-05-10] MEDS: LEVAQUIN PREMIX IV 500 MG 500 MG/100 ML BAG IV SCH (08:40)
[2017-05-10] MEDS: K-DUR TAB 20 MEQ PO SCH (08:40)
[2017-05-10] MEDS ORDERED: PATIENT'S HOME MEDICATION (Potassium Chloride [Potassium Chloride] 20 MEQ) PO SCH (09:00)
[2017-05-10] MEDS ORDERED: PATIENT'S HOME MEDICATION (Levocetirizine Dihydrochloride [Levocetirizine Dihydrochloride] PO SCH (09:00)
[2017-05-10] MEDS ORDERED: SPIRONOLACTONE 25 MG PO SCH (09:00)
[2017-05-10] MEDS ORDERED: FLUTICASONE PROPIONATE SCH (09:00)
[2017-05-10] MEDS ORDERED: PATIENT'S HOME MEDICATION (Omeprazole [Omeprazole] 1 CAP) PO SCH (09:00)
[2017-05-10] MEDS ORDERED: PATIENT'S HOME MEDICATION (Tiotropium Bromide Monohydrate 1 INH) INH SCH (09:00)
[2017-05-10] MEDS ORDERED: AMBIEN PO SCH (09:00)
[2017-05-10] MEDS ORDERED: DILTIAZEM HCL PO SCH (09:00)
[2017-05-10] MEDS: PULMICORT NEB TX 0.5 MG NEB SCH ×2 (09:26→21:03)
[2017-05-10] MEDS: PROVENTIL NEB TX 0.083% 2.5MG/ 3ML NEB SCH ×2 (09:26→21:03)
[2017-05-10] MEDS: FLONASE NASAL SPRAY ENOSTRIL SCH (10:00)
[2017-05-10] MEDS ORDERED: ZOFRAN INJ 4 MG VIAL 16 MG, ATIVAN INJ 2 MG VIAL 1 MG, DECADRON INJ 10 MG in NS 50 ML I... IV PRN (14:33)
[2017-05-10 14:57] LABS: BASOPHILS # (AUTO) 0.1 X10^3/uL (0.0-0.1); BASOPHILS % (AUTO) 0.8 % (0.2-1.0); HEMATOCRIT 37.7 % (36.0-47.0); HEMOGLOBIN 12.9 g/dL (12.0-16.0); LYMPHOCYTES # (AUTO) 0.6 X10^3/uL (1.3-2.9); LYMPHOCYTES % (AUTO) 6.5 % (21.0-51.0); MEAN CORPUSCULAR HEMOGLOBIN 32.1 pg (27.0-34.0); MEAN CORPUSCULAR HGB CONC 34.2 g/dL (33.0-35.0); MEAN PLATELET VOLUME 8.8 fL (7.4-11.0); MONOCYTES # (AUTO) 0.4 x10^3/uL (0.3-0.8); MONOCYTES % (AUTO) 3.7 % (0.0-13.0); NEUTROPHILS # (AUTO) 8.7 x10^3/uL (2.2-4.8); PLATELET COUNT 248 X10^3/uL (150.0-450.0); RED BLOOD COUNT 4.02 X10^6/uL (3.5-5.4); RED CELL DISTRIBUTION WIDTH 13.9 % (11.6-16.5); WHITE BLOOD COUNT 9.8 X10^3/uL (3.6-10.0)
[2017-05-10] MEDS: LASIX IVP SCH ×2 (15:09→20:18)
[2017-05-10 15:10] LABS: ALBUMIN 3.3 g/dL (3.4-5.0); CARBON DIOXIDE 31.9 mmol/L (21-32); COR CA(FOR HYPOALB) 9.6 mg/dL (8.5-10.1); CREATININE 1.62 mg/dL (0.55-1.02)
--- NOTE | 2017-05-10 16:47 | RAD ---
HISTORY: Nausea, vomiting, diarrhea Study: KUB Comparison: None Findings: Single portable view demonstrates surgical clips in the right upper quadrant. Bowel gas pattern is no nobstructive. No gross pneumoperitoneum. The visualized lung bases are clear. IMPRESSION: 1. No acute process. Reported By:
[2017-05-10 16:53] LABS: BILIRUBIN,URINE NEGATIVE (NEGATIVE); BLOOD/HEMOGLOBIN,URINE 5+ (NEGATIVE); GLUCOSE, URINE NEGATIVE (NEGATIVE); KETONES,URINE NEGATIVE (NEGATIVE); LEUKOCYTE ESTERASE ,URINE 1+ (NEGATIVE); NITRITES,URINE POSITIVE (NEGATIVE); PROTEIN,URINE NEGATIVE (NEGATIVE); UROBILINOGEN,URINE NORMAL (NORMAL)
[2017-05-10] MEDS ORDERED: ROBITUSSIN DM ONE (17:04)
[2017-05-10] MEDS: ROBITUSSIN DM PO PRN (17:11)
[2017-05-10 17:35] LABS: APPEARANCE,URINE HAZY (CLEAR); BACTERIA,URINE TRACE /HPF (NEGATIVE); COLOR,URINE YELLOW (YELLOW); SQUAMOUS EPITHELIAL CELL,UR RARE /HPF (NEGATIVE)
--- NOTE | 2017-05-10 17:43 | VAS ---
HISTORY: Right lower extremity pain and edema Study: Right lower extremity venous Doppler Comparison: None TECHNIQUE: Multiple [place] scale and color flow Doppler images of the deep venous system were obtained of the Right lower extremity. FINDINGS: The deep venous system of the right lower extremity was evaluated from the level of the common femora l vein through the popliteal vein. Normal color flow and augmentation can be observed. In addition, normal compression is seen throughout the deep venous system. IMPRESSION: 1. Negative for DVT. Reported By:
[2017-05-10] MEDS ORDERED: DECADRON INJ PRESERVATIVE-FREE IM ONE (18:51)
[2017-05-10] MEDS ORDERED: ATIVAN INJ 2 MG VIAL ONE (18:52)
[2017-05-10] MEDS ORDERED: NS 50 ML IV 50 ML IV ONE (18:53)
[2017-05-10] MEDS: REQUIP PO SCH (20:18)
[2017-05-10] MEDS ORDERED: NS 500 ML IV 500 ML IV ONE (22:04)
[2017-05-10] MEDS: ELAVIL PO PRN (22:15)
[2017-05-10] MEDS: AMBIEN PO PRN (22:15)
[2017-05-11] MEDS: ROBITUSSIN DM PO PRN ×4 (00:03→21:44)
[2017-05-11] MEDS: Atrovent NEB TX 0.02% NEB SCH ×5 (00:50→17:33)
[2017-05-11] MEDS: XOPENEX 1.25 MG/3 ML NEBULE NEB SCH ×5 (00:50→17:34)
[2017-05-11] MEDS: NORCO 5/325 MG TAB PO PRN ×2 (01:20→10:30)
[2017-05-11] MEDS: ZANAFLEX PO SCH ×3 (05:35→21:23)
[2017-05-11 06:22] LABS: ALANINE AMINOTRANSFERASE 19 Units/L (12-78); ALBUMIN 3.4 g/dL (3.4-5.0); ALKALINE PHOSPHATASE 88 Units/L (46-116); ASPARTATE AMINO TRANSFERASE 19 Units/L (15-37); BLOOD UREA NITROGEN 29 mg/dL (7-18); CALCIUM 9.1 mg/dL (8.5-10.1); CARBON DIOXIDE 29.7 mmol/L (21-32); CHLORIDE 99 mmol/L (98-107); COR NA(FOR HYPERGLY) 139 mmol/L (136-145); SODIUM 138 mmol/L (136-145); TOTAL PROTEIN 7.1 g/dL (6.4-8.2); eGFR BLACK RACES 39 (>60); eGFR NON BLACK RACES 32 (>60)
[2017-05-11] MEDS: ZOFRAN INJ 4 MG VIAL IVP PRN (06:24)
[2017-05-11 06:35] LABS: BASOPHILS % (AUTO) 0.2 % (0.2-1.0); HEMATOCRIT 38.8 % (36.0-47.0); LYMPHOCYTES # (AUTO) 0.6 X10^3/uL (1.3-2.9); LYMPHOCYTES % (AUTO) 5.5 % (21.0-51.0); MEAN CORPUSCULAR HEMOGLOBIN 31.5 pg (27.0-34.0); MEAN CORPUSCULAR HGB CONC 33.6 g/dL (33.0-35.0); MEAN PLATELET VOLUME 9.4 fL (7.4-11.0); MONOCYTES # (AUTO) 0.3 x10^3/uL (0.3-0.8); MONOCYTES % (AUTO) 3.1 % (0.0-13.0); NEUTROPHILS % (AUTO) 91.2 % (42.0-75.0); PLATELET COUNT 244 X10^3/uL (150.0-450.0); RED BLOOD COUNT 4.13 X10^6/uL (3.5-5.4); RED CELL DISTRIBUTION WIDTH 13.9 % (11.6-16.5)
--- NOTE | 2017-05-11 07:33 | RAD ---
HISTORY: Congestive heart failure, COPD Study: Chest AP portable Comparison: May 09, 2017 Findings: There is a right-sided port present. The heart is enlarged. No congestive heart failure is noted. No infiltrates or pleural effusions are identified. The bony thorax is unremarkable. IMPRESSION: Mild cardiomegaly without congestive heart failure Reported By:
[2017-05-11 07:39] LABS: PLATELET MORPHOLOGY COMMENT NORMAL (NORMAL); STOMATOCYTES PRESENT
[2017-05-11] MEDS: LASIX IVP SCH ×2 (08:12→21:23)
[2017-05-11] MEDS: CARDIZEM CD 240 MG PO SCH (08:13)
[2017-05-11] MEDS: ZANTAC PO SCH ×2 (08:13→21:23)
[2017-05-11] MEDS: XANAX PO PRN ×2 (08:13→21:23)
[2017-05-11] MEDS: LEVAQUIN PREMIX IV 500 MG 500 MG/100 ML BAG IV SCH (08:13)
[2017-05-11] MEDS: ALDACTONE TAB 25 MG PO SCH (08:13)
[2017-05-11] MEDS: SINGULAIR TAB 10 MG PO SCH (08:13)
[2017-05-11] MEDS: PriLOSEC PO SCH (08:13)
[2017-05-11] MEDS: K-DUR TAB 20 MEQ PO SCH (08:13)
[2017-05-11] MEDS: FLONASE NASAL SPRAY ENOSTRIL SCH (08:14)
[2017-05-11] MEDS: PULMICORT NEB TX 0.5 MG NEB SCH ×2 (09:00→19:59)
[2017-05-11] MEDS: PROVENTIL NEB TX 0.083% 2.5MG/ 3ML NEB SCH ×2 (09:00→19:59)
[2017-05-11] MEDS: PHENERGAN INJ 25 MG IV PRN (11:06)
[2017-05-11] MEDS: NEURONTIN CAP 300 MG PO PRN (13:02)
[2017-05-11] MEDS ORDERED: BUTT CREAM (COMPOUND) ONE (15:07)
[2017-05-11] MEDS: REQUIP PO SCH (21:23)
[2017-05-11] MEDS: AMBIEN PO PRN (21:23)
[2017-05-12] MEDS: NORCO 5/325 MG TAB PO PRN ×3 (00:37→22:17)
[2017-05-12] MEDS: XOPENEX 1.25 MG/3 ML NEBULE NEB SCH ×4 (00:51→17:22)
[2017-05-12] MEDS: Atrovent NEB TX 0.02% NEB SCH ×5 (00:51→17:22)
[2017-05-12] MEDS: PHENERGAN INJ 25 MG IV PRN ×3 (01:38→17:56)
[2017-05-12] MEDS: ELAVIL PO PRN ×2 (02:40→22:16)
[2017-05-12] MEDS: ZANAFLEX PO SCH ×3 (05:56→21:52)
[2017-05-12 06:48] LABS: BASOPHILS % (AUTO) 0.2 % (0.2-1.0); HEMATOCRIT 37.9 % (36.0-47.0); HEMOGLOBIN 12.9 g/dL (12.0-16.0); LYMPHOCYTES % (AUTO) 10.7 % (21.0-51.0); MEAN CORPUSCULAR HEMOGLOBIN 32.1 pg (27.0-34.0); MEAN CORPUSCULAR VOLUME 94.5 fL (80.0-100.0); MEAN PLATELET VOLUME 9.6 fL (7.4-11.0); MONOCYTES # (AUTO) 0.8 x10^3/uL (0.3-0.8); MONOCYTES % (AUTO) 9.5 % (0.0-13.0); NEUTROPHILS # (AUTO) 7.1 x10^3/uL (2.2-4.8); NEUTROPHILS % (AUTO) 79.6 % (42.0-75.0); PLATELET COUNT 236 X10^3/uL (150.0-450.0); RED BLOOD COUNT 4.01 X10^6/uL (3.5-5.4); RED CELL DISTRIBUTION WIDTH 14.1 % (11.6-16.5); WHITE BLOOD COUNT 8.9 X10^3/uL (3.6-10.0)
[2017-05-12] MEDS: PROVENTIL NEB TX 0.083% 2.5MG/ 3ML NEB SCH ×2 (08:35→20:29)
[2017-05-12] MEDS: PULMICORT NEB TX 0.5 MG NEB SCH ×2 (08:35→20:29)
[2017-05-12] MEDS ORDERED: NS 500 ML IV 500 ML IV ONE (09:29)
[2017-05-12] MEDS: LASIX IVP SCH ×2 (09:32→21:55)
[2017-05-12] MEDS: LEVAQUIN PREMIX IV 500 MG 500 MG/100 ML BAG IV SCH (09:36)
[2017-05-12] MEDS: K-DUR TAB 20 MEQ PO SCH (09:39)
[2017-05-12] MEDS: ALDACTONE TAB 25 MG PO SCH (09:39)
[2017-05-12] MEDS: ZANTAC PO SCH ×2 (09:39→21:53)
[2017-05-12] MEDS: CARDIZEM CD 240 MG PO SCH (09:40)
[2017-05-12] MEDS: PriLOSEC PO SCH (09:40)
[2017-05-12] MEDS: SINGULAIR TAB 10 MG PO SCH (09:40)
[2017-05-12] MEDS: FLONASE NASAL SPRAY ENOSTRIL SCH (09:46)
[2017-05-12 13:50] LABS: ALANINE AMINOTRANSFERASE 32 Units/L (12-78); ALBUMIN 3.4 g/dL (3.4-5.0); ALKALINE PHOSPHATASE 78 Units/L (46-116); ASPARTATE AMINO TRANSFERASE 33 Units/L (15-37); BLOOD UREA NITROGEN 31 mg/dL (7-18); CALCIUM 8.6 mg/dL (8.5-10.1); CARBON DIOXIDE 34.8 mmol/L (21-32); CHLORIDE 99 mmol/L (98-107); COR NA(FOR HYPERGLY) 141 mmol/L (136-145); CREATININE 2.06 mg/dL (0.55-1.02); SODIUM 140 mmol/L (136-145); TOTAL PROTEIN 6.8 g/dL (6.4-8.2); eGFR BLACK RACES 31 (>60); eGFR NON BLACK RACES 26 (>60)
[2017-05-12] MEDS ORDERED: SOLU-Medrol 125 MG VIAL IVP SCH (15:00)
[2017-05-12] MEDS ORDERED: ZOFRAN INJ 4 MG VIAL 16 MG, ATIVAN INJ 2 MG VIAL 1 MG, DECADRON INJ 10 MG in NS 50 ML I... IV PRN (15:44)
[2017-05-12] MEDS ORDERED: XOPENEX 1.25 MG/3 ML NEBULE NEB SCH (18:00)
[2017-05-12] MEDS ORDERED: Atrovent NEB TX 0.02% NEB SCH (18:00)
[2017-05-12] MEDS ORDERED: PULMICORT NEB TX 0.5 MG NEB SCH (21:00)
[2017-05-12] MEDS ORDERED: LASIX IVP SCH (21:00)
[2017-05-12] MEDS ORDERED: PROVENTIL NEB TX 0.083% 2.5MG/ 3ML NEB SCH (21:00)
[2017-05-12] MEDS: REQUIP PO SCH (21:56)
[2017-05-12] MEDS: SOLU-Medrol 125 MG VIAL IVP SCH (21:58)
[2017-05-12] MEDS: AMBIEN PO PRN (22:15)
[2017-05-12] MEDS: NEURONTIN CAP 300 MG PO PRN (22:16)
[2017-05-12] MEDS: XANAX PO PRN (22:16)
[2017-05-13] MEDS: Atrovent NEB TX 0.02% NEB SCH ×4 (00:51→17:02)
[2017-05-13] MEDS: XOPENEX 1.25 MG/3 ML NEBULE NEB SCH ×4 (00:51→17:02)
[2017-05-13 05:10] LABS: BASOPHILS % (AUTO) 0.1 % (0.2-1.0); HEMATOCRIT 38.4 % (36.0-47.0); LYMPHOCYTES # (AUTO) 0.5 X10^3/uL (1.3-2.9); LYMPHOCYTES % (AUTO) 7.6 % (21.0-51.0); MEAN CORPUSCULAR HEMOGLOBIN 31.7 pg (27.0-34.0); MEAN CORPUSCULAR HGB CONC 33.8 g/dL (33.0-35.0); MEAN CORPUSCULAR VOLUME 93.7 fL (80.0-100.0); MEAN PLATELET VOLUME 9.6 fL (7.4-11.0); MONOCYTES # (AUTO) 0.3 x10^3/uL (0.3-0.8); MONOCYTES % (AUTO) 4.2 % (0.0-13.0); NEUTROPHILS % (AUTO) 88.1 % (42.0-75.0); PLATELET COUNT 222 X10^3/uL (150.0-450.0); RED CELL DISTRIBUTION WIDTH 13.6 % (11.6-16.5); WHITE BLOOD COUNT 6.8 X10^3/uL (3.6-10.0)
[2017-05-13 05:15] LABS: ALANINE AMINOTRANSFERASE 40 Units/L (12-78); ALBUMIN 3.4 g/dL (3.4-5.0); ALKALINE PHOSPHATASE 79 Units/L (46-116); ASPARTATE AMINO TRANSFERASE 31 Units/L (15-37); BLOOD UREA NITROGEN 30 mg/dL (7-18); CALCIUM 8.7 mg/dL (8.5-10.1); CARBON DIOXIDE 34.6 mmol/L (21-32); CHLORIDE 97 mmol/L (98-107); COR NA(FOR HYPERGLY) 137 mmol/L (136-145); CREATININE 1.71 mg/dL (0.55-1.02); SODIUM 135 mmol/L (136-145); TOTAL PROTEIN 6.8 g/dL (6.4-8.2); eGFR BLACK RACES 39 (>60); eGFR NON BLACK RACES 32 (>60)
[2017-05-13] MEDS: ZANAFLEX PO SCH ×3 (05:54→21:44)
[2017-05-13] MEDS: SOLU-Medrol 125 MG VIAL IVP SCH (05:55)
[2017-05-13] MEDS: NORCO 5/325 MG TAB PO PRN ×3 (06:02→20:23)
[2017-05-13] MEDS: PHENERGAN INJ 25 MG IV PRN (08:14)
[2017-05-13] MEDS ORDERED: LEVAQUIN PREMIX IV 500 MG 500 MG/100 ML BAG IV SCH (09:00)
[2017-05-13] MEDS: PriLOSEC PO SCH (09:09)
[2017-05-13] MEDS: ALDACTONE TAB 25 MG PO SCH (09:10)
[2017-05-13] MEDS: ZANTAC PO SCH ×2 (09:10→20:22)
[2017-05-13] MEDS: CARDIZEM CD 240 MG PO SCH (09:10)
[2017-05-13] MEDS: XANAX PO PRN ×3 (09:11→20:23)
[2017-05-13] MEDS: K-DUR TAB 20 MEQ PO SCH (09:11)
[2017-05-13] MEDS: LASIX IVP SCH ×2 (09:12→20:21)
[2017-05-13] MEDS: FLONASE NASAL SPRAY ENOSTRIL SCH (09:13)
[2017-05-13] MEDS: SINGULAIR TAB 10 MG PO SCH (09:13)
[2017-05-13] MEDS: PULMICORT NEB TX 0.5 MG NEB SCH ×2 (09:38→20:44)
[2017-05-13] MEDS: PROVENTIL NEB TX 0.083% 2.5MG/ 3ML NEB SCH ×2 (09:39→20:44)
--- NOTE | 2017-05-13 12:34 | PCM.PROG ---
Progress Note - Progress Note for Day of Date: 05/13/17 - Subjective Subjective: patient is a 62-year-old white female who was admitted on 928 with increased shortness of breath, COPD exacerbation and CHF exacerbation. Patient has been treated with IV Lasix for diuresis and CHF is much improved. Patient continues to have expiratory wheezing and central chest congestion. Patient's white count is 6.8 patient's renal function B UN 30 creatinine 1.171 this a.m. patient is to have repeat a.m. labs and chest x-ray we discussed consulting [facility] at home or [facility]. - Past Medical Family Social History Past Med/Fam/Surg Hx: No changes since H&P Allergies: Allergies ketorolac [From Toradol] Allergy (Verified 04/30/17 23:35) nalbuphine [From Nubain] Allergy (Verified 04/30/17 23:35) Penicillins Allergy (Verified 04/30/17 23:35) Sulfa (Sulfonamide Antibiotics) [SULFA] Allergy (Verified 04/30/17 23:35) BETA BLOCKERS Allergy (Uncoded 04/30/17 23:35) - Review of Systems ROS: No change since H&P - Vital Signs and I&O's Vital Signs: Temperature 98 F Pulse Rate [Left Radial] 70 Pulse Rate 106 Respiratory Rate 20 Blood Pressure [Left Arm] 106/56 Blood Pressure [Right Arm] 114/52 Blood Pressure 135/84 O2 Sat by Pulse Oximetry 93 Intake and Output: Intake & Output 05/11/17 05/12/17 05/13/17 05/14/17 11:59 11:59 11:59 11:59 Intake Total 1490 1041 1905 Output Total 5 2350 1200 Balance -535 -1309 705 - Physical Exam Oriented: Normal Eyes: Normal Ear: Normal Nose: Normal Throat: Normal Respiratory: Diminished, Rhonchi Cardiovascular: Tachycardia, Edema (+ 3 EDEMA TO BILATERAL LOWER EXTREMITIES) : Normal Auscultation: Bowel Sounds: Normal Tenderness: Normal Skin: Decreased Turgur, Bruising Musculoskeletal: Right, Left, Hip, Back:Lumbar, Instability Psychiatric: Anxiety Mood Description: Calm Speech Pattern: Clear, Appropriate - Laboratory and Diagnostics Result Diagrams: 05/13/17 04:10 05/13/17 04:10 Labs: 05/11/17 15:30 Blood Blood Culture - Preliminary 05/11/17 15:21 Blood Blood Culture - Preliminary 05/09/17 11:25 Blood Blood Culture - Final Staphylococcus Epidermidis 05/09/17 11:12 Blood Blood Culture - Final Staphylococcus Epidermidis 05/10/17 16:40 Urine,Clean Catch Urine Culture - Final 05/09/17 12:46 Sputum - Expectorated Sputum Sputum Culture - Final Serratia Marcescens 05/09/17 12:46 Sputum - Expectorated Sputum - Final Laboratory WBC 6.8 X10^3/uL (3.6-10.0) 05/13/17 04:10 RBC 4.10 X10^6/uL (3.5-5.4) 05/13/17 04:10 Hgb 13.0 g/dL (12.0-16.0) 05/13/17 04:10 Hct 38.4 % (36.0-47.0) 05/13/17 04:10 MCV 93.7 fL (80.0-100.0) 05/13/17 04:10 MCH 31.7 pg (27.0-34.0) 05/13/17 04:10 MCHC 33.8 g/dL (33.0-35.0) 05/13/17 04:10 RDW 13.6 % (11.6-16.5) 05/13/17 04:10 Plt Count 222 X10^3/uL (150.0-450.0) 05/13/17 04:10 Plt Count Comment Adequate (ADEQUATE) 05/11/17 05:37 MPV 9.6 fL (7.4-11.0) 05/13/17 04:10 Neut % 88.1 % (42.0-75.0) H 05/13/17 04:10 Lymph % 7.6 % (21.0-51.0) L 05/13/17 04:10 Barry % 4.2 % (0.0-13.0) 05/13/17 04:10 Eos % 0.0 % (0.9-2.9) L 05/13/17 04:10 Baso % 0.1 % (0.2-1.0) L 05/13/17 04:10 Neut # 6.0 x10^3/uL (2.2-4.8) H 05/13/17 04:10 Lymph # 0.5 X10^3/uL (1.3-2.9) L 05/13/17 04:10 Barry # 0.3 x10^3/uL (0.3-0.8) 05/13/17 04:10 Eos # 0.0 x10^3/uL (0.0-0.2) 05/13/17 04:10 Baso # 0.0 X10^3/uL (0.0-0.1) 05/13/17 04:10 Absolute Nucleated RBC 0.0 /100WBC 05/13/17 04:10 Total Counted 100 05/11/17 05:37 Neutrophils % (Manual) 92 % (39-76) H 05/11/17 05:37 Lymphocytes % (Manual) 5 % (13-43) L 05/11/17 05:37 Monocytes % (Manual) 3 % (4-9) L 05/11/17 05:37 Plt Morphology Comment Normal (NORMAL) 05/11/17 05:37 RBC Morphology Abnormal (NORMAL) A 05/11/17 05:37 Stomatocytes Present 05/11/17 05:37 Sample Site Lr 05/09/17 12:00 ABG pH 7.380 (7.35-7.45) 05/09/17 12:00 ABG pCO2 54.0 mmHg (35.0-45.0) H* 05/09/17 12:00 ABG pO2 66.0 mmHg (80.0-100.0) L 05/09/17 12:00 ABG HCO3 31.9 mmol/L (22-26) H* 05/09/17 12:00 ABG O2 Saturation 92.0 % (90-100) 05/09/17 12:00 ABG Base Excess 5.4 mmol/L (-2.0-2.0) H 05/09/17 12:00 Sameer Test Pos 05/09/17 12:00 A-a Gradient 95.0 mmHg 05/09/17 12:00 FiO2 32 05/09/17 12:00 Blood Gas Comments Pt baltazar well. cdn 05/09/17 12:00 Sodium 135 mmol/L (136-145) L 05/13/17 04:10 Corrected Sodium 137 mmol/L (136-145) 05/13/17 04:10 Potassium 3.6 mmol/L (3.5-5.1) 05/13/17 04:10 Chloride 97 mmol/L (98-107) L 05/13/17 04:10 Carbon Dioxide 34.6 mmol/L (21-32) H 05/13/17 04:10 BUN 30 mg/dL (7-18) H 05/13/17 04:10 Creatinine 1.71 mg/dL (0.55-1.02) H 05/13/17 04:10 Est GFR (MDRD) Af Amer 39 (>60) L 05/13/17 04:10 Est GFR (MDRD) Non-Af 32 (>60) L 05/13/17 04:10 Glucose 184 mg/dL (65-99) H 05/13/17 04:10 Calcium 8.7 mg/dL (8.5-10.1) 05/13/17 04:10 Corrected Calcium TNP 05/13/17 04:10 Magnesium 1.8 mg/dL (1.7-2.9) 05/09/17 10:57 Total Bilirubin 0.30 mg/dL (0.2-1.0) 05/13/17 04:10 AST 31 Units/L (15-37) 05/13/17 04:10 ALT 40 Units/L (12-78) 05/13/17 04:10 Alkaline Phosphatase 79 Units/L (46-116) 05/13/17 04:10 Total Protein 6.8 g/dL (6.4-8.2) 05/13/17 04:10 Albumin 3.4 g/dL (3.4-5.0) 05/13/17 04:10 Globulin 3.4 g/dL (2.5-4.5) 05/13/17 04:10 Albumin/Globulin Ratio 1.0 Ratio (1.1-2.1) L 05/13/17 04:10 Specimen Type Clean catch urine 05/10/17 16:40 Urine Color Yellow (YELLOW) 05/10/17 16:40 Urine Appearance Hazy (CLEAR) 05/10/17 16:40 Urine pH 7.0 (5.0 - 8.0) 05/10/17 16:40 Ur Specific [place] 1.005 (1.000-1.030) 05/10/17 16:40 Urine Protein Negative (NEGATIVE) 05/10/17 16:40 Urine Glucose (UA) Negative (NEGATIVE) 05/10/17 16:40 Urine Ketones Negative (NEGATIVE) 05/10/17 16:40 Urine Occult Blood 5+ (NEGATIVE) 05/10/17 16:40 Urine Nitrite Positive (NEGATIVE) 05/10/17 16:40 Urine Bilirubin Negative (NEGATIVE) 05/10/17 16:40 Urine Urobilinogen Normal (NORMAL) 05/10/17 16:40 Ur Leukocyte Esterase 1+ (NEGATIVE) 05/10/17 16:40 Urine RBC 10-20 /HPF (NEGATIVE) 05/10/17 16:40 Urine WBC 0-2 /HPF (NEGATIVE) 05/10/17 16:40 Ur Squamous Epith Cells Rare /HPF (NEGATIVE) 05/10/17 16:40 Urine Bacteria Trace /HPF (NEGATIVE) 05/10/17 16:40 Ur Culture Indicated? Yes/culture set up 05/10/17 16:40 - Plan (1) COPD exacerbation Status: Inactive Plan: CONTINUE IV ATBX, RESP THERAPY, ABG ON ADMISSION. SUPPLEMENTAL O2,. CARDIAC MONITORING, EKG ON ADMISSION. RESUME HOME MEDS, BP AND LIPID CONTROL (2) CHF (congestive heart failure) Status: Chronic Qualifiers: Congestive heart failure type: unspecified congestive heart failure type Plan: DIURESIS, CARDIAC MONITORING (3) DDD (degenerative disc disease), lumbosacral Status: Chronic (4) DHARA (generalized anxiety disorder) Status: Chronic (5) GERD (gastroesophageal reflux disease) Status: Chronic (6) Hypertension Status: Chronic Qualifiers: Hypertension type: essential hypertension Qualified Code(s): I10 - Essential (primary) hypertension Plan: BP MONITORING
[2017-05-13] MEDS: NEURONTIN CAP 300 MG PO PRN ×2 (13:47→20:23)
[2017-05-13] MEDS ORDERED: TYLENOL 325 MG TAB PO PRN (16:12)
[2017-05-13] MEDS: REQUIP PO SCH (20:21)
[2017-05-13] MEDS: ELAVIL PO PRN (20:23)
[2017-05-13] MEDS: AMBIEN PO PRN (20:23)
[2017-05-13] MEDS: ZOFRAN INJ 4 MG VIAL IVP PRN (20:25)
[2017-05-13] MEDS: ROBITUSSIN DM PO PRN (20:26)
[2017-05-14] MEDS: Atrovent NEB TX 0.02% NEB SCH ×4 (00:26→17:09)
[2017-05-14] MEDS: XOPENEX 1.25 MG/3 ML NEBULE NEB SCH ×4 (00:26→17:09)
[2017-05-14] MEDS: PHENERGAN INJ 25 MG IV PRN ×3 (01:05→20:30)
[2017-05-14] MEDS: ROBITUSSIN DM PO PRN (04:40)
[2017-05-14] MEDS: NORCO 5/325 MG TAB PO PRN ×2 (04:48→09:20)
[2017-05-14 05:13] LABS: BASOPHILS % (AUTO) 0.2 % (0.2-1.0); EOSINOPHILS # (AUTO) 0.1 x10^3/uL (0.0-0.2); EOSINOPHILS % (AUTO) 1.5 % (0.9-2.9); HEMATOCRIT 38.4 % (36.0-47.0); HEMOGLOBIN 13.4 g/dL (12.0-16.0); LYMPHOCYTES # (AUTO) 0.7 X10^3/uL (1.3-2.9); LYMPHOCYTES % (AUTO) 7.8 % (21.0-51.0); MEAN CORPUSCULAR HEMOGLOBIN 32.6 pg (27.0-34.0); MEAN CORPUSCULAR HGB CONC 34.8 g/dL (33.0-35.0); MEAN CORPUSCULAR VOLUME 93.9 fL (80.0-100.0); MEAN PLATELET VOLUME 10.5 fL (7.4-11.0); MONOCYTES # (AUTO) 0.7 x10^3/uL (0.3-0.8); MONOCYTES % (AUTO) 7.9 % (0.0-13.0); NEUTROPHILS # (AUTO) 7.8 x10^3/uL (2.2-4.8); NEUTROPHILS % (AUTO) 82.6 % (42.0-75.0); PLATELET COUNT 246 X10^3/uL (150.0-450.0); RED BLOOD COUNT 4.09 X10^6/uL (3.5-5.4); RED CELL DISTRIBUTION WIDTH 13.7 % (11.6-16.5); WHITE BLOOD COUNT 9.4 X10^3/uL (3.6-10.0)
[2017-05-14 05:47] LABS: ALANINE AMINOTRANSFERASE 48 Units/L (12-78); ALBUMIN 3.5 g/dL (3.4-5.0); ALKALINE PHOSPHATASE 81 Units/L (46-116); ASPARTATE AMINO TRANSFERASE 33 Units/L (15-37); BLOOD UREA NITROGEN 30 mg/dL (7-18); CALCIUM 8.9 mg/dL (8.5-10.1); CARBON DIOXIDE 31.6 mmol/L (21-32); CHLORIDE 97 mmol/L (98-107); COR NA(FOR HYPERGLY) 139 mmol/L (136-145); CREATININE 1.53 mg/dL (0.55-1.02); SODIUM 138 mmol/L (136-145); TOTAL PROTEIN 6.9 g/dL (6.4-8.2); eGFR BLACK RACES 44 (>60); eGFR NON BLACK RACES 36 (>60)
[2017-05-14] MEDS: ZANAFLEX PO SCH ×3 (05:53→22:14)
[2017-05-14] MEDS: PULMICORT NEB TX 0.5 MG NEB SCH ×2 (09:06→20:44)
[2017-05-14] MEDS: PROVENTIL NEB TX 0.083% 2.5MG/ 3ML NEB SCH ×2 (09:06→20:44)
[2017-05-14] MEDS: LASIX IVP SCH ×2 (09:19→20:30)
[2017-05-14] MEDS: ALDACTONE TAB 25 MG PO SCH (09:19)
[2017-05-14] MEDS: PriLOSEC PO SCH (09:19)
[2017-05-14] MEDS: ZANTAC PO SCH ×2 (09:19→20:29)
[2017-05-14] MEDS: K-DUR TAB 20 MEQ PO SCH (09:20)
[2017-05-14] MEDS: SINGULAIR TAB 10 MG PO SCH (09:20)
[2017-05-14] MEDS: CARDIZEM CD 240 MG PO SCH (09:20)
[2017-05-14] MEDS: XANAX PO PRN ×2 (09:20→14:53)
[2017-05-14] MEDS: FLONASE NASAL SPRAY ENOSTRIL SCH (09:21)
[2017-05-14] MEDS: MILK OF MAGNESIA PO SCH ×2 (11:33→22:14)
[2017-05-14] MEDS: COLACE CAP 100 MG PO SCH ×2 (11:33→20:29)
[2017-05-14] MEDS: PYRIDIUM PO SCH ×3 (11:33→20:28)
[2017-05-14] MEDS: PERCOCET TAB 5/325 MG PO PRN ×2 (14:00→20:34)
[2017-05-14] MEDS: ZOFRAN INJ 4 MG VIAL IVP PRN (14:53)
[2017-05-14] MEDS ORDERED: NS 500 ML IV 500 ML IV ONE (18:51)
--- NOTE | 2017-05-14 19:14 | PCM.PROG ---
Progress Note - Progress Note for Day of Date: 05/14/17 - Subjective Subjective: patient is a 62-year-old white female who was admitted on 05/09 with increased shortness of breath, COPD exacerbation and CHF exacerbation. Patient has been treated with IV Lasix for diuresis and CHF is much improved. Will repeat a.m. labs and chest x-ray we discussed consulting [facility] for [facility] at home or [facility]. - Past Medical Family Social History Past Med/Fam/Surg Hx: No changes since H&P Allergies: Allergies ketorolac [From Toradol] Allergy (Verified 04/30/17 23:35) nalbuphine [From Nubain] Allergy (Verified 04/30/17 23:35) Penicillins Allergy (Verified 04/30/17 23:35) Sulfa (Sulfonamide Antibiotics) [SULFA] Allergy (Verified 04/30/17 23:35) BETA BLOCKERS Allergy (Uncoded 04/30/17 23:35) - Review of Systems ROS: No change since H&P - Vital Signs and I&O's Vital Signs: Temperature 97.7 F Pulse Rate [Right Brachial] 89 Pulse Rate [Left Radial] 78 Pulse Rate 90 Respiratory Rate 20 Blood Pressure [Left Arm] 106/56 Blood Pressure [Right Arm] 115/58 Blood Pressure 135/84 O2 Sat by Pulse Oximetry 96 Intake and Output: Intake & Output 05/12/17 05/13/17 05/14/17 05/15/17 11:59 11:59 11:59 11:59 Intake Total 1041 1905 2280 1520 Output Total 2350 1200 1000 Balance -5066 826 4650 1520 - Physical Exam Oriented: Normal Eyes: Normal Ear: Normal Nose: Normal Throat: Normal Respiratory: Diminished, Rhonchi Cardiovascular: Tachycardia, Edema (+ 3 EDEMA TO BILATERAL LOWER EXTREMITIES) : Normal Auscultation: Bowel Sounds: Normal Tenderness: Normal Skin: Decreased Turgur, Bruising Musculoskeletal: Right, Left, Hip, Back:Lumbar, Instability Psychiatric: Anxiety Mood Description: Calm Speech Pattern: Clear, Appropriate - Laboratory and Diagnostics Result Diagrams: 05/14/17 04:20 05/14/17 04:20 Labs: 05/11/17 15:21 Blood Blood Culture - Final 05/11/17 15:30 Blood Blood Culture - Preliminary 05/09/17 11:25 Blood Blood Culture - Final Staphylococcus Epidermidis 05/09/17 11:12 Blood Blood Culture - Final Staphylococcus Epidermidis 05/10/17 16:40 Urine,Clean Catch Urine Culture - Final 05/09/17 12:46 Sputum - Expectorated Sputum Sputum Culture - Final Serratia Marcescens 05/09/17 12:46 Sputum - Expectorated Sputum - Final Laboratory WBC 9.4 X10^3/uL (3.6-10.0) 05/14/17 04:20 RBC 4.09 X10^6/uL (3.5-5.4) 05/14/17 04:20 Hgb 13.4 g/dL (12.0-16.0) 05/14/17 04:20 Hct 38.4 % (36.0-47.0) 05/14/17 04:20 MCV 93.9 fL (80.0-100.0) 05/14/17 04:20 MCH 32.6 pg (27.0-34.0) 05/14/17 04:20 MCHC 34.8 g/dL (33.0-35.0) 05/14/17 04:20 RDW 13.7 % (11.6-16.5) 05/14/17 04:20 Plt Count 246 X10^3/uL (150.0-450.0) 05/14/17 04:20 Plt Count Comment Adequate (ADEQUATE) 05/11/17 05:37 MPV 10.5 fL (7.4-11.0) 05/14/17 04:20 Neut % 82.6 % (42.0-75.0) H 05/14/17 04:20 Lymph % 7.8 % (21.0-51.0) L 05/14/17 04:20 [place] % 7.9 % (0.0-13.0) 05/14/17 04:20 Eos % 1.5 % (0.9-2.9) 05/14/17 04:20 Baso % 0.2 % (0.2-1.0) 05/14/17 04:20 Neut # 7.8 x10^3/uL (2.2-4.8) H 05/14/17 04:20 Lymph # 0.7 X10^3/uL (1.3-2.9) L 05/14/17 04:20 [place] # 0.7 x10^3/uL (0.3-0.8) 05/14/17 04:20 Eos # 0.1 x10^3/uL (0.0-0.2) 05/14/17 04:20 Baso # 0.0 X10^3/uL (0.0-0.1) 05/14/17 04:20 Absolute Nucleated RBC 0.6 /100WBC 05/14/17 04:20 Total Counted 100 05/11/17 05:37 Neutrophils % (Manual) 92 % (39-76) H 05/11/17 05:37 Lymphocytes % (Manual) 5 % (13-43) L 05/11/17 05:37 Monocytes % (Manual) 3 % (4-9) L 05/11/17 05:37 Plt Morphology Comment Normal (NORMAL) 05/11/17 05:37 RBC Morphology Abnormal (NORMAL) A 05/11/17 05:37 Stomatocytes Present 05/11/17 05:37 Sample Site Lr 05/09/17 12:00 ABG pH 7.380 (7.35-7.45) 05/09/17 12:00 ABG pCO2 54.0 mmHg (35.0-45.0) H* 05/09/17 12:00 ABG pO2 66.0 mmHg (80.0-100.0) L 05/09/17 12:00 ABG HCO3 31.9 mmol/L (22-26) H* 05/09/17 12:00 ABG O2 Saturation 92.0 % (90-100) 05/09/17 12:00 ABG Base Excess 5.4 mmol/L (-2.0-2.0) H 05/09/17 12:00 Sameer Test Pos 05/09/17 12:00 A-a Gradient 95.0 mmHg 05/09/17 12:00 FiO2 32 05/09/17 12:00 Blood Gas Comments Pt baltazar well. cdn 05/09/17 12:00 Sodium 138 mmol/L (136-145) 05/14/17 04:20 Corrected Sodium 139 mmol/L (136-145) 05/14/17 04:20 Potassium 3.6 mmol/L (3.5-5.1) 05/14/17 04:20 Chloride 97 mmol/L (98-107) L 05/14/17 04:20 Carbon Dioxide 31.6 mmol/L (21-32) 05/14/17 04:20 BUN 30 mg/dL (7-18) H 05/14/17 04:20 Creatinine 1.53 mg/dL (0.55-1.02) H 05/14/17 04:20 Est GFR (MDRD) Af Amer 44 (>60) L 05/14/17 04:20 Est GFR (MDRD) Non-Af 36 (>60) L 05/14/17 04:20 Glucose 127 mg/dL (65-99) H 05/14/17 04:20 Calcium 8.9 mg/dL (8.5-10.1) 05/14/17 04:20 Corrected Calcium TNP 05/14/17 04:20 Magnesium 1.8 mg/dL (1.7-2.9) 05/09/17 10:57 Total Bilirubin 0.20 mg/dL (0.2-1.0) 05/14/17 04:20 AST 33 Units/L (15-37) 05/14/17 04:20 ALT 48 Units/L (12-78) 05/14/17 04:20 Alkaline Phosphatase 81 Units/L (46-116) 05/14/17 04:20 Total Protein 6.9 g/dL (6.4-8.2) 05/14/17 04:20 Albumin 3.5 g/dL (3.4-5.0) 05/14/17 04:20 Globulin 3.4 g/dL (2.5-4.5) 05/14/17 04:20 Albumin/Globulin Ratio 1.0 Ratio (1.1-2.1) L 05/14/17 04:20 Specimen Type Clean catch urine 05/10/17 16:40 Urine Color Yellow (YELLOW) 05/10/17 16:40 Urine Appearance Hazy (CLEAR) 05/10/17 16:40 Urine pH 7.0 (5.0 - 8.0) 05/10/17 16:40 Ur Specific [place] 1.005 (1.000-1.030) 05/10/17 16:40 Urine Protein Negative (NEGATIVE) 05/10/17 16:40 Urine Glucose (UA) Negative (NEGATIVE) 05/10/17 16:40 Urine Ketones Negative (NEGATIVE) 05/10/17 16:40 Urine Occult Blood 5+ (NEGATIVE) 05/10/17 16:40 Urine Nitrite Positive (NEGATIVE) 05/10/17 16:40 Urine Bilirubin Negative (NEGATIVE) 05/10/17 16:40 Urine Urobilinogen Normal (NORMAL) 05/10/17 16:40 Ur Leukocyte Esterase 1+ (NEGATIVE) 05/10/17 16:40 Urine RBC 10-20 /HPF (NEGATIVE) 05/10/17 16:40 Urine WBC 0-2 /HPF (NEGATIVE) 05/10/17 16:40 Ur Squamous Epith Cells Rare /HPF (NEGATIVE) 05/10/17 16:40 Urine Bacteria Trace /HPF (NEGATIVE) 05/10/17 16:40 Ur Culture Indicated? Yes/culture set up 05/10/17 16:40 - Plan (1) COPD exacerbation Status: Inactive Plan: CONTINUE IV ATBX, RESP THERAPY, ABG ON ADMISSION. SUPPLEMENTAL O2,. CARDIAC MONITORING, EKG ON ADMISSION. RESUME HOME MEDS, BP AND LIPID CONTROL (2) CHF (congestive heart failure) Status: Chronic Qualifiers: Congestive heart failure type: unspecified congestive heart failure type Plan: DIURESIS, CARDIAC MONITORING (3) DDD (degenerative disc disease), lumbosacral Status: Chronic (4) DHARA (generalized anxiety disorder) Status: Chronic (5) GERD (gastroesophageal reflux disease) Status: Chronic (6) Hypertension Status: Chronic Qualifiers: Hypertension type: essential hypertension Qualified Code(s): I10 - Essential (primary) hypertension Plan: BP MONITORING (7) Left knee pain Status: Acute Plan: uric acid level, xray left knee (8) Chronic hypercapnic respiratory failure Status: Acute Plan: consult [facility]. resume home o2 therapy, neb therapy on d/c
[2017-05-14] MEDS: REQUIP PO SCH (20:28)
[2017-05-14] MEDS: NEURONTIN CAP 300 MG PO PRN (20:28)
[2017-05-14] MEDS: AMBIEN PO PRN (20:29)
[2017-05-14] MEDS: ELAVIL PO PRN (20:29)
[2017-05-15] MEDS: XOPENEX 1.25 MG/3 ML NEBULE NEB SCH ×4 (01:00→16:59)
[2017-05-15] MEDS: Atrovent NEB TX 0.02% NEB SCH ×4 (01:00→16:59)
[2017-05-15] MEDS: ROBITUSSIN DM PO PRN (02:06)
[2017-05-15] MEDS: PERCOCET TAB 5/325 MG PO PRN ×4 (05:24→21:12)
[2017-05-15] MEDS: ZANAFLEX PO SCH ×3 (05:24→21:13)
[2017-05-15 05:30] LABS: ALANINE AMINOTRANSFERASE 45 Units/L (12-78); ALBUMIN 3.3 g/dL (3.4-5.0); ALKALINE PHOSPHATASE 74 Units/L (46-116); ASPARTATE AMINO TRANSFERASE 25 Units/L (15-37); BLOOD UREA NITROGEN 30 mg/dL (7-18); CALCIUM 8.3 mg/dL (8.5-10.1); CARBON DIOXIDE 35.5 mmol/L (21-32); CHLORIDE 98 mmol/L (98-107); COR CA(FOR HYPOALB) 8.9 mg/dL (8.5-10.1); CREATININE 1.64 mg/dL (0.55-1.02); SODIUM 138 mmol/L (136-145); TOTAL PROTEIN 6.4 g/dL (6.4-8.2); URIC ACID 10.4 mg/dL (2.6-6.0); eGFR BLACK RACES 41 (>60); eGFR NON BLACK RACES 34 (>60)
[2017-05-15 05:35] LABS: BASOPHILS % (AUTO) 0.2 % (0.2-1.0); EOSINOPHILS % (AUTO) 0.4 % (0.9-2.9); HEMATOCRIT 38.9 % (36.0-47.0); HEMOGLOBIN 13.1 g/dL (12.0-16.0); LYMPHOCYTES # (AUTO) 1.8 X10^3/uL (1.3-2.9); LYMPHOCYTES % (AUTO) 20.1 % (21.0-51.0); MEAN CORPUSCULAR HGB CONC 33.8 g/dL (33.0-35.0); MEAN CORPUSCULAR VOLUME 94.7 fL (80.0-100.0); MEAN PLATELET VOLUME 9.7 fL (7.4-11.0); MONOCYTES # (AUTO) 0.9 x10^3/uL (0.3-0.8); MONOCYTES % (AUTO) 10.2 % (0.0-13.0); NEUTROPHILS # (AUTO) 6.2 x10^3/uL (2.2-4.8); NEUTROPHILS % (AUTO) 69.1 % (42.0-75.0); PLATELET COUNT 193 X10^3/uL (150.0-450.0); RED BLOOD COUNT 4.11 X10^6/uL (3.5-5.4); RED CELL DISTRIBUTION WIDTH 13.6 % (11.6-16.5); WHITE BLOOD COUNT 8.9 X10^3/uL (3.6-10.0)
[2017-05-15] MEDS: PYRIDIUM PO SCH ×3 (06:00→18:33)
[2017-05-15 06:02] LABS: BAND NEUTROPHILS % 3 % (0-10); PLATELET MORPHOLOGY COMMENT NORMAL (NORMAL)
[2017-05-15] MEDS: PROVENTIL NEB TX 0.083% 2.5MG/ 3ML NEB SCH ×2 (08:25→20:24)
[2017-05-15] MEDS: PULMICORT NEB TX 0.5 MG NEB SCH ×2 (08:25→20:24)
[2017-05-15] MEDS: LASIX IVP SCH ×2 (09:02→21:11)
[2017-05-15] MEDS: ZOFRAN INJ 4 MG VIAL IVP PRN (09:02)
[2017-05-15] MEDS: FLONASE NASAL SPRAY ENOSTRIL SCH (09:02)
[2017-05-15] MEDS: ALDACTONE TAB 25 MG PO SCH (09:03)
[2017-05-15] MEDS: CARDIZEM CD 240 MG PO SCH (09:03)
[2017-05-15] MEDS: ZANTAC PO SCH ×2 (09:03→21:13)
[2017-05-15] MEDS: XANAX PO PRN ×2 (09:03→21:13)
[2017-05-15] MEDS: PriLOSEC PO SCH (09:03)
[2017-05-15] MEDS: SINGULAIR TAB 10 MG PO SCH (09:04)
[2017-05-15] MEDS: K-DUR TAB 20 MEQ PO SCH (09:06)
[2017-05-15] MEDS: LEVAQUIN PREMIX IV 500 MG 500 MG/100 ML BAG IV SCH ×2 (09:11→12:28)
[2017-05-15] MEDS ORDERED: DULCOLAX SUPPOSITORY 10 MG RECTAL ONE ×2 (09:23→09:25)
[2017-05-15] MEDS ORDERED: COLCRYS TAB 0.6 MG PO SCH (14:00)
[2017-05-15] MEDS: REQUIP PO SCH (21:13)
[2017-05-15] MEDS: COLACE CAP 100 MG PO SCH (21:13)
[2017-05-15] MEDS: AMBIEN PO PRN (21:13)
[2017-05-15] MEDS: MILK OF MAGNESIA PO SCH (21:14)
[2017-05-15] MEDS: NEURONTIN CAP 300 MG PO PRN (21:35)
[2017-05-15] MEDS: ELAVIL PO PRN (21:35)
[2017-05-16] MEDS: Atrovent NEB TX 0.02% NEB SCH ×3 (00:30→12:57)
[2017-05-16] MEDS: XOPENEX 1.25 MG/3 ML NEBULE NEB SCH ×3 (00:30→12:57)
[2017-05-16 04:52] LABS: BASOPHILS % (AUTO) 0.1 % (0.2-1.0); EOSINOPHILS # (AUTO) 0.1 x10^3/uL (0.0-0.2); EOSINOPHILS % (AUTO) 1.2 % (0.9-2.9); HEMATOCRIT 38.7 % (36.0-47.0); HEMOGLOBIN 13.1 g/dL (12.0-16.0); LYMPHOCYTES # (AUTO) 2.1 X10^3/uL (1.3-2.9); LYMPHOCYTES % (AUTO) 20.1 % (21.0-51.0); MEAN CORPUSCULAR HEMOGLOBIN 31.8 pg (27.0-34.0); MEAN CORPUSCULAR HGB CONC 33.9 g/dL (33.0-35.0); MEAN CORPUSCULAR VOLUME 93.6 fL (80.0-100.0); MEAN PLATELET VOLUME 9.6 fL (7.4-11.0); MONOCYTES # (AUTO) 1.2 x10^3/uL (0.3-0.8); MONOCYTES % (AUTO) 11.3 % (0.0-13.0); NEUTROPHILS # (AUTO) 6.9 x10^3/uL (2.2-4.8); NEUTROPHILS % (AUTO) 67.3 % (42.0-75.0); PLATELET COUNT 183 X10^3/uL (150.0-450.0); RED BLOOD COUNT 4.13 X10^6/uL (3.5-5.4); RED CELL DISTRIBUTION WIDTH 13.9 % (11.6-16.5); WHITE BLOOD COUNT 10.2 X10^3/uL (3.6-10.0)
[2017-05-16 05:16] LABS: ALANINE AMINOTRANSFERASE 38 Units/L (12-78); ALBUMIN 3.2 g/dL (3.4-5.0); ALKALINE PHOSPHATASE 83 Units/L (46-116); ASPARTATE AMINO TRANSFERASE 21 Units/L (15-37); BLOOD UREA NITROGEN 26 mg/dL (7-18); CALCIUM 8.4 mg/dL (8.5-10.1); CARBON DIOXIDE 36.6 mmol/L (21-32); CHLORIDE 98 mmol/L (98-107); CREATININE 1.55 mg/dL (0.55-1.02); SODIUM 138 mmol/L (136-145); TOTAL PROTEIN 6.3 g/dL (6.4-8.2); eGFR BLACK RACES 43 (>60); eGFR NON BLACK RACES 36 (>60)
[2017-05-16 06:12] LABS: BAND NEUTROPHILS % 1 % (0-10); PLATELET MORPHOLOGY COMMENT NORMAL (NORMAL)
[2017-05-16] MEDS: PYRIDIUM PO SCH ×3 (06:12→16:10)
[2017-05-16] MEDS: ZANAFLEX PO SCH ×2 (06:12→13:11)
[2017-05-16] MEDS: PROVENTIL NEB TX 0.083% 2.5MG/ 3ML NEB SCH (08:28)
[2017-05-16] MEDS: PULMICORT NEB TX 0.5 MG NEB SCH (08:28)
[2017-05-16] MEDS: ZANTAC PO SCH (09:24)
[2017-05-16] MEDS: CARDIZEM CD 240 MG PO SCH (09:24)
[2017-05-16] MEDS: PriLOSEC PO SCH (09:24)
[2017-05-16] MEDS: ALDACTONE TAB 25 MG PO SCH (09:24)
[2017-05-16] MEDS: XANAX PO PRN (09:24)
[2017-05-16] MEDS: ZOFRAN INJ 4 MG VIAL IVP PRN (09:24)
[2017-05-16] MEDS: SINGULAIR TAB 10 MG PO SCH (09:24)
[2017-05-16] MEDS: NEURONTIN CAP 300 MG PO PRN (09:25)
[2017-05-16] MEDS: PERCOCET TAB 5/325 MG PO PRN ×2 (09:25→14:00)
[2017-05-16] MEDS: K-DUR TAB 20 MEQ PO SCH (09:40)
[2017-05-16] MEDS: FLONASE NASAL SPRAY ENOSTRIL SCH (09:42)
[2017-05-16] MEDS ORDERED: K-DUR TAB 20 MEQ PO SCH (15:00)
[2017-05-16 16:03] VITALS: BP 125/60
[2017-05-16] MEDS ORDERED: LASIX IVP SCH (21:00)
== END 2017-05-16 16:00 | disposition home or self-care (01) | DRG 191 ==
LOC: ICU 10:15 → MED/SURG 05-12 14:10
PROVIDERS: ADMIT Internal Medicine; ATTEND Internal Medicine
DX: J44.1 Chronic obstructive pulmonary disease with (acute) exacerbation (principal); I50.9 Heart failure, unspecified; R06.02 Shortness of breath; R60.0 Localized edema; F41.8 Other specified anxiety disorders; I10 Essential (primary) hypertension; R06.03 Acute respiratory distress; M51.37 Other intervertebral disc degeneration, lumbosacral region; J20.8 Acute bronchitis due to other specified organisms; L03.115 Cellulitis of right lower limb; B95.7 Other staphylococcus as the cause of diseases classified elsewhere; J96.12 Chronic respiratory failure with hypercapnia; B96.89 Other specified bacterial agents as the cause of diseases classified elsewhere
CPT/HCPCS: 36415; 36600; 71010; 71020; 73130; 73560; 74000; 80053; 81001; 82270; 82803; 83735; 84132; 84550; 85025; 87040; 87070; 87077; 87086; 87186; 87205; 93005; 93010; 93971; 94640; A4222; S0028; J1100; J1940; J1956; J2060; J2405; J2550; J2930; J7613; J7626; J7644

== ENCOUNTER 2017-05-20 15:54 | Inpatient (IN) | payer OTHER, MEDICAID ==
--- NOTE | 2017-05-20 16:53 | DR.H&P ---
H&P - History & Physical for Day of: H&P Date: 05/20/17 - Chief Complaint Chief Complaint: sob, weight gain, swelling to legs - Allergies Allergies/Adverse Reactions: Allergies Allergy/AdvReac Type Severity Reaction Status Date / Time ketorolac [From Toradol] Allergy Verified 04/30/17 23:35 nalbuphine [From Nubain] Allergy Verified 04/30/17 23:35 Penicillins Allergy Verified 04/30/17 23:35 Sulfa (Sulfonamide Allergy Verified 04/30/17 23:35 Antibiotics) [SULFA] BETA BLOCKERS Allergy Uncoded 04/30/17 23:35 - Past Medical History Past Medical History: Anxiety, Arthritis, Asthma, CHF, COPD, Coronary Artery Disease, GERD, Hypertension - Past Surgical History Surgical History: Abdominal Surgery, Appendectomy, Cholecystectomy - Family History Family Medical History: Coronary Artery Disease, Hypertension - Social History Does patient currently use any type of tobacco product: Yes Have you used tobacco products in the last 12 months: Yes Type of Tobacco Use: Cigarettes Does any household member use tobacco: No Alcohol Use: None Drug Use: None - Review of Systems Constitutional: No Symptoms Reported, Malaise Eyes: No Symptoms Reported ENT: No Symptoms Reported Respiratory: Shortness of Breath Cardiovascular: Edema Gastrointestinal: No Symptoms Reported Genitourinary: No Symptoms Reported Musculoskeletal: Back Pain, Leg Pain Skin: No Symptoms Reported Neurological: Weakness - Physical Exam Vital Signs: Blood Pressure [Left Arm] 125/60 Blood Pressure [Right Arm] 132/67 Blood Pressure 125/60 Oriented: Normal Eyes: Normal Ear: Normal Nose: Normal Throat: Normal Respiratory: Diminished Throughout, RLL Diminished, LLL Diminished Cardiovascular: Normal, Edema : Normal Auscultation: Bowel Sounds: Normal Palpation: Normal Tenderness: Normal Skin: Normal Musculoskeletal: Back:Thoracic, Back:Lumbar, Motor Deficit Mood Description: Calm Speech Pattern: Clear, Appropriate - Assessment/Plan (1) CHF (congestive heart failure) Qualifiers: Congestive heart failure type: unspecified congestive heart failure type Status: Chronic Plan: admit, lasix 40mg iv bid. lloyd cath, strict I &Os, cardiac surgeon. admission labs, cbc cmp mag, bnp. ekg and telemetry. resume home meds. respt consult, cxr on admission (2) COPD (chronic obstructive pulmonary disease) Status: Chronic (3) DDD (degenerative disc disease), lumbosacral Status: Chronic (4) Hypertension Qualifiers: Hypertension type: essential hypertension Qualified Code(s): I10 - Essential (primary) hypertension Status: Chronic
[2017-05-20 17:30] LABS: BASOPHILS # (AUTO) 0.1 X10^3/uL (0.0-0.1); BASOPHILS % (AUTO) 0.5 % (0.2-1.0); EOSINOPHILS # (AUTO) 0.2 x10^3/uL (0.0-0.2); EOSINOPHILS % (AUTO) 1.8 % (0.9-2.9); HEMATOCRIT 36.6 % (36.0-47.0); HEMOGLOBIN 12.4 g/dL (12.0-16.0); LYMPHOCYTES # (AUTO) 1.3 X10^3/uL (1.3-2.9); LYMPHOCYTES % (AUTO) 13.7 % (21.0-51.0); MEAN CORPUSCULAR HEMOGLOBIN 31.7 pg (27.0-34.0); MEAN CORPUSCULAR HGB CONC 33.8 g/dL (33.0-35.0); MEAN CORPUSCULAR VOLUME 93.6 fL (80.0-100.0); MONOCYTES # (AUTO) 1.1 x10^3/uL (0.3-0.8); MONOCYTES % (AUTO) 11.5 % (0.0-13.0); NEUTROPHILS % (AUTO) 72.5 % (42.0-75.0); PLATELET COUNT 192 X10^3/uL (150.0-450.0); RED BLOOD COUNT 3.91 X10^6/uL (3.5-5.4); RED CELL DISTRIBUTION WIDTH 13.7 % (11.6-16.5); WHITE BLOOD COUNT 9.7 X10^3/uL (3.6-10.0)
[2017-05-20 17:43] LABS: ALANINE AMINOTRANSFERASE 30 Units/L (12-78); ALKALINE PHOSPHATASE 112 Units/L (46-116); ASPARTATE AMINO TRANSFERASE 25 Units/L (15-37); BLOOD UREA NITROGEN 15 mg/dL (7-18); CALCIUM 9.1 mg/dL (8.5-10.1); CHLORIDE 98 mmol/L (98-107); COR CA(FOR HYPOALB) 9.9 mg/dL (8.5-10.1); CREATININE 1.14 mg/dL (0.55-1.02); SODIUM 141 mmol/L (136-145); TOTAL PROTEIN 6.7 g/dL (6.4-8.2); eGFR BLACK RACES > 60 (>60); eGFR NON BLACK RACES 51 (>60)
[2017-05-20 17:49] LABS: B-TYPE NATRIURETIC PEPTIDE 40.5 pg/mL (0-79)
[2017-05-20 17:50] LABS: ABG BASE EXCESS 13.2 mmol/L (-2.0-2.0)
[2017-05-20 17:51] LABS: ABG HCO3 38.7 mmol/L (22-26)
[2017-05-20 18:02] LABS: BAND NEUTROPHILS % 7 % (0-10); PLATELET MORPHOLOGY COMMENT NORMAL (NORMAL)
--- NOTE | 2017-05-20 18:23 | RAD ---
AP chest Indication: Shortness of breath Comparison: 05/13/2017 Findings: Heart size is borderline enlarged, unchanged. An opacity within the left lung base appears similar to prior examination likely representing subsegmental atelectasis or epicardial fat pad, cerda estela a developing infiltrate is not entirely excluded and clinical correlation is needed. No evidence of CHF or additional infiltrate. No pleural effusion or pneumothorax. Stable position of right chest wall [facility]. Impression: Stable examination as discussed above. Reported By:
[2017-05-20] MEDS ORDERED: DUONEB 0.5 MG/3 MG NEB SCH (18:45)
[2017-05-20] MEDS ORDERED: ZOFRAN INJ 4 MG VIAL IVP PRN (18:52)
[2017-05-20] MEDS: XANAX PO SCH ×2 (18:54→22:09)
[2017-05-20] MEDS: LASIX IVP SCH ×2 (18:54→22:08)
[2017-05-20 19:37] LABS: BILIRUBIN,URINE NEGATIVE (NEGATIVE); BLOOD/HEMOGLOBIN,URINE NEGATIVE (NEGATIVE); GLUCOSE, URINE NEGATIVE (NEGATIVE); KETONES,URINE NEGATIVE (NEGATIVE); LEUKOCYTE ESTERASE ,URINE NEGATIVE (NEGATIVE); NITRITES,URINE NEGATIVE (NEGATIVE); PROTEIN,URINE NEGATIVE (NEGATIVE); UROBILINOGEN,URINE NORMAL (NORMAL)
[2017-05-20 19:43] LABS: APPEARANCE,URINE CLEAR (CLEAR); COLOR,URINE YELLOW (YELLOW); RBC,URINE NONE SEEN /HPF (NEGATIVE); SQUAMOUS EPITHELIAL CELL,UR RARE /HPF (NEGATIVE)
[2017-05-20 19:44] LABS: BACTERIA,URINE NEGATIVE /HPF (NEGATIVE)
[2017-05-20] MEDS: DUONEB 0.5 MG/3 MG NEB SCH (21:24)
[2017-05-20] MEDS: PULMICORT NEB TX 0.5 MG NEB SCH (21:24)
[2017-05-20] MEDS: NORCO 10/325 TAB PO PRN (22:39)
[2017-05-21] MEDS: DUONEB 0.5 MG/3 MG NEB SCH ×6 (01:25→20:51)
[2017-05-21] MEDS: NORCO 10/325 TAB PO PRN (04:55)
[2017-05-21 05:28] LABS: BASOPHILS % (AUTO) 0.3 % (0.2-1.0); EOSINOPHILS # (AUTO) 0.2 x10^3/uL (0.0-0.2); EOSINOPHILS % (AUTO) 2.8 % (0.9-2.9); HEMATOCRIT 36.3 % (36.0-47.0); HEMOGLOBIN 12.1 g/dL (12.0-16.0); LYMPHOCYTES # (AUTO) 1.1 X10^3/uL (1.3-2.9); LYMPHOCYTES % (AUTO) 15.9 % (21.0-51.0); MEAN CORPUSCULAR HEMOGLOBIN 31.3 pg (27.0-34.0); MEAN CORPUSCULAR HGB CONC 33.4 g/dL (33.0-35.0); MEAN CORPUSCULAR VOLUME 93.7 fL (80.0-100.0); MEAN PLATELET VOLUME 9.1 fL (7.4-11.0); MONOCYTES % (AUTO) 14.5 % (0.0-13.0); NEUTROPHILS # (AUTO) 4.6 x10^3/uL (2.2-4.8); NEUTROPHILS % (AUTO) 66.5 % (42.0-75.0); PLATELET COUNT 192 X10^3/uL (150.0-450.0); RED BLOOD COUNT 3.87 X10^6/uL (3.5-5.4); RED CELL DISTRIBUTION WIDTH 13.5 % (11.6-16.5)
[2017-05-21 05:33] LABS: ALANINE AMINOTRANSFERASE 29 Units/L (12-78); ALBUMIN 2.8 g/dL (3.4-5.0); ALKALINE PHOSPHATASE 116 Units/L (46-116); ASPARTATE AMINO TRANSFERASE 23 Units/L (15-37); BLOOD UREA NITROGEN 13 mg/dL (7-18); CALCIUM 8.5 mg/dL (8.5-10.1); CARBON DIOXIDE 39.6 mmol/L (21-32); CHLORIDE 97 mmol/L (98-107); COR CA(FOR HYPOALB) 9.5 mg/dL (8.5-10.1); CREATININE 1.14 mg/dL (0.55-1.02); SODIUM 141 mmol/L (136-145); TOTAL PROTEIN 6.4 g/dL (6.4-8.2); eGFR BLACK RACES > 60 (>60); eGFR NON BLACK RACES 51 (>60)
[2017-05-21 06:11] LABS: BAND NEUTROPHILS % 1 % (0-10); PLATELET MORPHOLOGY COMMENT NORMAL (NORMAL)
[2017-05-21] MEDS: PULMICORT NEB TX 0.5 MG NEB SCH ×3 (09:10→20:51)
[2017-05-21] MEDS ORDERED: XANAX PO PRN (09:53)
[2017-05-21] MEDS ORDERED: PHENERGAN TAB 25 MG PO PRN (09:53)
[2017-05-21] MEDS: LASIX IVP SCH ×2 (10:02→21:21)
[2017-05-21 10:03] VITALS: BMI 43.0
[2017-05-21] MEDS: XANAX PO SCH ×2 (10:03→21:21)
[2017-05-21 10:18] LABS: BASOPHILS % (AUTO) 0.5 % (0.2-1.0); EOSINOPHILS # (AUTO) 0.2 x10^3/uL (0.0-0.2); EOSINOPHILS % (AUTO) 2.2 % (0.9-2.9); HEMATOCRIT 37.9 % (36.0-47.0); HEMOGLOBIN 12.8 g/dL (12.0-16.0); LYMPHOCYTES # (AUTO) 1.3 X10^3/uL (1.3-2.9); LYMPHOCYTES % (AUTO) 16.9 % (21.0-51.0); MEAN CORPUSCULAR HEMOGLOBIN 31.5 pg (27.0-34.0); MEAN CORPUSCULAR HGB CONC 33.7 g/dL (33.0-35.0); MEAN CORPUSCULAR VOLUME 93.3 fL (80.0-100.0); MEAN PLATELET VOLUME 8.7 fL (7.4-11.0); MONOCYTES % (AUTO) 12.6 % (0.0-13.0); NEUTROPHILS # (AUTO) 5.1 x10^3/uL (2.2-4.8); NEUTROPHILS % (AUTO) 67.8 % (42.0-75.0); PLATELET COUNT 202 X10^3/uL (150.0-450.0); RED BLOOD COUNT 4.06 X10^6/uL (3.5-5.4); RED CELL DISTRIBUTION WIDTH 13.6 % (11.6-16.5); WHITE BLOOD COUNT 7.6 X10^3/uL (3.6-10.0)
[2017-05-21 10:26] LABS: BLOOD UREA NITROGEN 13 mg/dL (7-18); CALCIUM 8.8 mg/dL (8.5-10.1); CHLORIDE 97 mmol/L (98-107); CREATININE 1.14 mg/dL (0.55-1.02); SODIUM 142 mmol/L (136-145); eGFR BLACK RACES > 60 (>60); eGFR NON BLACK RACES 51 (>60)
[2017-05-21 10:30] LABS: ALANINE AMINOTRANSFERASE 30 Units/L (12-78); ALKALINE PHOSPHATASE 127 Units/L (46-116); ASPARTATE AMINO TRANSFERASE 24 Units/L (15-37); COR CA(FOR HYPOALB) 9.6 mg/dL (8.5-10.1); TOTAL PROTEIN 6.7 g/dL (6.4-8.2)
[2017-05-21 10:34] LABS: CARBON DIOXIDE 42.7 mmol/L (21-32)
[2017-05-21 10:38] LABS: AMMONIA 13 umol/L (11-32)
[2017-05-21 10:44] LABS: BAND NEUTROPHILS % 4 % (0-10)
[2017-05-21 10:45] LABS: PLATELET MORPHOLOGY COMMENT NORMAL (NORMAL)
[2017-05-21] MEDS: LOVENOX INJ 40 MG SYR SC SCH (12:16)
[2017-05-21] MEDS: ALDACTONE TAB 25 MG PO SCH (12:17)
[2017-05-21] MEDS: K-DUR TAB 20 MEQ PO SCH (12:17)
[2017-05-21] MEDS: CARDIZEM CD 240 MG PO SCH (12:17)
[2017-05-21] MEDS ORDERED: ALBUTEROL SULFATE INH SCH (13:00)
[2017-05-21] MEDS ORDERED: IPRATROPIUM INH SCH (13:00)
[2017-05-21] MEDS ORDERED: [UNRECOGNIZED DRUG - OTHER] INH SCH (13:00)
[2017-05-21] MEDS ORDERED: FLUVIRIN IM ONE (14:47)
[2017-05-21] MEDS ORDERED: PREVNAR 13 IM ONE (14:47)
[2017-05-21] MEDS: PERCOCET TAB 5/325 MG PO SCH ×2 (15:25→21:20)
[2017-05-21] MEDS: ZANAFLEX PO SCH ×2 (15:25→21:19)
[2017-05-21] MEDS: NEURONTIN CAP 300 MG PO SCH ×2 (15:26→21:19)
[2017-05-21] MEDS ORDERED: NS 100 ML IV 100 ML IV ONE (15:40)
[2017-05-21] MEDS: NYSTATIN OINT TOP SCH ×2 (15:44→21:21)
[2017-05-21] MEDS: DIFLUCAN 200 MG IV PREMIX* 200 MG/100 ML BAG IV SCH (15:45)
[2017-05-21] MEDS ORDERED: NS 250 ML IV 250 ML IV ONE (16:58)
[2017-05-21] MEDS ORDERED: PATIENT'S HOME MEDICATION (Fluticasone-Salmeterol 500/50 1 PUFF) INH SCH (21:00)
[2017-05-21] MEDS: ZANTAC PO SCH (21:19)
[2017-05-21] MEDS: AMBIEN PO PRN (21:19)
[2017-05-21] MEDS: SINGULAIR TAB 10 MG PO SCH (21:20)
[2017-05-21] MEDS: ELAVIL PO SCH (21:20)
[2017-05-21] MEDS: REQUIP PO SCH (21:21)
[2017-05-22] MEDS: DUONEB 0.5 MG/3 MG NEB SCH ×6 (01:20→20:16)
[2017-05-22] MEDS: NEURONTIN CAP 300 MG PO SCH ×3 (06:14→21:08)
[2017-05-22] MEDS: ZANAFLEX PO SCH ×3 (06:14→21:08)
[2017-05-22] MEDS: PERCOCET TAB 5/325 MG PO SCH ×5 (06:15→21:13)
[2017-05-22 06:20] LABS: ALANINE AMINOTRANSFERASE 24 Units/L (12-78); ALBUMIN 2.8 g/dL (3.4-5.0); ALKALINE PHOSPHATASE 110 Units/L (46-116); ASPARTATE AMINO TRANSFERASE 22 Units/L (15-37); BLOOD UREA NITROGEN 15 mg/dL (7-18); CALCIUM 8.1 mg/dL (8.5-10.1); CARBON DIOXIDE 36.9 mmol/L (21-32); CHLORIDE 99 mmol/L (98-107); COR CA(FOR HYPOALB) 9.1 mg/dL (8.5-10.1); SODIUM 141 mmol/L (136-145); TOTAL PROTEIN 6.1 g/dL (6.4-8.2); eGFR BLACK RACES 58 (>60); eGFR NON BLACK RACES 48 (>60)
[2017-05-22 06:40] LABS: BASOPHILS # (AUTO) 0.1 X10^3/uL (0.0-0.1); BASOPHILS % (AUTO) 0.6 % (0.2-1.0); EOSINOPHILS # (AUTO) 0.1 x10^3/uL (0.0-0.2); EOSINOPHILS % (AUTO) 1.3 % (0.9-2.9); HEMATOCRIT 36.6 % (36.0-47.0); HEMOGLOBIN 12.3 g/dL (12.0-16.0); LYMPHOCYTES # (AUTO) 1.3 X10^3/uL (1.3-2.9); LYMPHOCYTES % (AUTO) 15.9 % (21.0-51.0); MEAN CORPUSCULAR HEMOGLOBIN 31.4 pg (27.0-34.0); MEAN CORPUSCULAR HGB CONC 33.6 g/dL (33.0-35.0); MEAN CORPUSCULAR VOLUME 93.4 fL (80.0-100.0); MEAN PLATELET VOLUME 10.2 fL (7.4-11.0); MONOCYTES % (AUTO) 12.1 % (0.0-13.0); NEUTROPHILS # (AUTO) 5.7 x10^3/uL (2.2-4.8); NEUTROPHILS % (AUTO) 70.1 % (42.0-75.0); PLATELET COUNT 134 X10^3/uL (150.0-450.0); RED BLOOD COUNT 3.92 X10^6/uL (3.5-5.4); RED CELL DISTRIBUTION WIDTH 13.8 % (11.6-16.5)
[2017-05-22 06:59] LABS: WHITE BLOOD COUNT 8.1 X10^3/uL (3.6-10.0)
[2017-05-22 07:01] LABS: PLATELET MORPHOLOGY COMMENT NORMAL (NORMAL)
[2017-05-22] MEDS ORDERED: PATIENT'S HOME MEDICATION (Potassium Chloride [Potassium Chloride] 20 MEQ) PO SCH (09:00)
[2017-05-22] MEDS ORDERED: DILTIAZEM HCL PO SCH (09:00)
[2017-05-22] MEDS ORDERED: FLUTICASONE PROPIONATE SCH (09:00)
[2017-05-22] MEDS ORDERED: SPIRONOLACTONE 25 MG PO SCH (09:00)
[2017-05-22] MEDS ORDERED: PATIENT'S HOME MEDICATION (Tiotropium Bromide Monohydrate 1 INH) INH SCH (09:00)
[2017-05-22] MEDS: CARDIZEM CD 240 MG PO SCH (09:10)
[2017-05-22] MEDS: K-DUR TAB 20 MEQ PO SCH (09:11)
[2017-05-22] MEDS: LASIX PO SCH (09:11)
[2017-05-22] MEDS: ALDACTONE TAB 25 MG PO SCH (09:11)
[2017-05-22] MEDS: XANAX PO SCH ×2 (09:11→21:07)
[2017-05-22] MEDS: ZANTAC PO SCH ×2 (09:11→21:07)
[2017-05-22] MEDS: FLONASE NASAL SPRAY ENOSTRIL SCH (09:11)
[2017-05-22] MEDS: DIFLUCAN 200 MG IV PREMIX* 200 MG/100 ML BAG IV SCH (09:12)
[2017-05-22] MEDS: LASIX IVP SCH ×2 (09:13→21:07)
[2017-05-22] MEDS: LOVENOX INJ 40 MG SYR SC SCH (09:14)
[2017-05-22] MEDS: NYSTATIN OINT TOP SCH ×2 (09:30→21:10)
[2017-05-22] MEDS: MORPHINE SULFATE INJ 2 MG INJ IVP PRN ×2 (13:02→21:23)
[2017-05-22] MEDS: PULMICORT NEB TX 0.5 MG NEB SCH (20:16)
[2017-05-22] MEDS ORDERED: PATIENT'S HOME MEDICATION (Levocetirizine Dihydrochloride [Levocetirizine Dihydrochloride] PO SCH (21:00)
[2017-05-22] MEDS ORDERED: ZyrTEC TAB 10 MG PO SCH (21:00)
[2017-05-22] MEDS: ELAVIL PO SCH (21:08)
[2017-05-22] MEDS: SINGULAIR TAB 10 MG PO SCH (21:09)
[2017-05-22] MEDS: AMBIEN PO PRN (21:09)
[2017-05-22] MEDS: REQUIP PO SCH (21:09)
[2017-05-23] MEDS: DUONEB 0.5 MG/3 MG NEB SCH ×2 (01:32→04:33)
[2017-05-23] MEDS: MORPHINE SULFATE INJ 2 MG INJ IVP PRN (04:27)
[2017-05-23] MEDS: ZANAFLEX PO SCH (06:02)
[2017-05-23] MEDS: NEURONTIN CAP 300 MG PO SCH (06:02)
[2017-05-23] MEDS: PERCOCET TAB 5/325 MG PO SCH (06:04)
[2017-05-23] MEDS ORDERED: NICOTINE PATCH TD SCH (09:00)
[2017-05-23 09:25] VITALS: BP 90/51
[2017-05-23] MEDS: ALDACTONE TAB 25 MG PO SCH (09:26)
[2017-05-23] MEDS: DIFLUCAN 200 MG IV PREMIX* 200 MG/100 ML BAG IV SCH (09:26)
[2017-05-23] MEDS: CARDIZEM CD 240 MG PO SCH (09:26)
[2017-05-23] MEDS: NYSTATIN OINT TOP SCH (09:27)
[2017-05-23] MEDS: K-DUR TAB 20 MEQ PO SCH (09:27)
[2017-05-23] MEDS: LOVENOX INJ 40 MG SYR SC SCH (09:27)
[2017-05-23] MEDS: FLONASE NASAL SPRAY ENOSTRIL SCH (09:27)
[2017-05-23] MEDS: LASIX IVP SCH (09:27)
[2017-05-23] MEDS: LASIX PO SCH (09:27)
[2017-05-23] MEDS: ZANTAC PO SCH (09:28)
[2017-05-23] MEDS: XANAX PO SCH (09:28)
== END 2017-05-23 09:28 | disposition home or self-care (01) | DRG 293 ==
LOC: OBSVTOIN 15:54 → MED/SURG 15:54
PROVIDERS: ADMIT Internal Medicine; ATTEND Internal Medicine
DX: I50.9 Heart failure, unspecified (principal); J44.9 Chronic obstructive pulmonary disease, unspecified; M51.36 Other intervertebral disc degeneration, lumbar region; I10 Essential (primary) hypertension; I25.10 Atherosclerotic heart disease of native coronary artery without angina pectoris; K21.9 Gastro-esophageal reflux disease without esophagitis
CPT/HCPCS: 36415; 36600; 71010; 71020; 80053; 81001; 82140; 82803; 83880; 85025; 90686; 93005; 93010; 93970; 94640; 94660; 94760; A4222; A4618; A7030; 90670; J1450; J1650; J1940; J2270; J2405; J7620; J7626

== ENCOUNTER 2017-05-26 22:24 | Inpatient (IN) | payer OTHER, MEDICAID ==
--- NOTE | 2017-05-27 00:41 | DR.GENAD ---
HPI - PCP Primary Care Physician: NG - HPI Comment HPI Comment: WEAK, GETTING WORSE. WAS AT [facility] IN [place], [place] FOR CHEST PAIN EVALUATION. CARDIAC CATH WAS UNREMARKABLE. SHE SIGN OUT AMA BEFORE DISCHARGE. GOT WORSE WHEN SHE CAME HOME AND CAME TO ED. - Complaint/Symptoms Chief Complaint Doctors Comments: ABDOMINAL PAIN AND DISTENSION, N/V TIMES ONE DAY. Chief Complaint:: VOMITING; CAN'T EAT; WAS ADMITTED TO [facility] FOR HEART CATH; PT SIGNED OUT AMA; LEFT [facility] TODAY Self Treatment fo Chief Complaint: PHENERGAN - Nurses notes reviewed Nurses Notes Review: Yes - Source History Provided: Patient - Mode of Arrival Mode of Arrival: Ambulatory - Timing Onset of Chief Complaint: 05/26/17 Came on: Gradually - Duration Duration: Constant Duration: Days - Severity Severity: Moderate PMH - PMH Past Medical History: Yes Past Medical History: COPD, Coronary Artery Disease Past Surgical History: Yes Surgical History: Appendectomy, Cholecystectomy, Tonsillectomy Past Surgical History Comment: BACK SURGERY - Family History History of Family Medical Conditions: No Family Medical History: Coronary Artery Disease, Hypertension - Social History Does patient currently use any type of tobacco product: No Have you used tobacco products in the last 12 months: No Type of Tobacco Use: None Alcohol Use: None Do you use any recreational Drugs:: No Lives With: Alone Lives Where: Home - infectious screening In the last 2 months have you had wt loss of >10#?: NO Have you had fever, night sweats or hemotysis?: No Have you traveled outside the country in the last 6 months?: No Isolation: Standard ROS - Review of Systems Constitutional: Weakness, Fatigue, Loss of Appetite. negative: Chills, Fever Eyes: negative: Eye Pain, Discharge ENTM: negative: Ear Discharge Respiratoy: Non-Productive Cough, Short of Breath. negative: Wheezing, Hemoptysis Cardiovascular: Chest Pain Gastrointestinal/Abdominal: Abdominal Pain, Nausea, Vomiting. negative: Diarrhea Genitourinary: Other. negative: Dysuria, Frequency, Hematuria Neurological: Headache, Weakness, Dizziness Musculoskeletal: Muscle Pain Integumentary: Change in Color Hematologic/Lymphatic: Easy Bleeding, Easy Bruising Endocrine: No Symptoms Reported All Other Systems: Reviewed and Negative PE - Vital Signs Vitals: Temperature 97.7 F Pulse Rate [Left Brachial] 106 Pulse Rate 116 Respiratory Rate 22 Blood Pressure [Left Arm] 113/61 Blood Pressure [Right Arm] 98/53 Blood Pressure 99/68 O2 Sat by Pulse Oximetry 94 - General Limitations: No Limitations General Appearance: Alert - Head Head Exam: Normal Inspection - Eyes Eye exam: Normal Appearance - ENT ENT Exam: Normal External Ear Exam External Ear Exam: Normal External Inspection TM/Canal Exam: Bilateral Normal Nose Exam: Normal Nose Exam Mouth Exam: Normal Inspection Throat Exam: Normal Inspection - Chest Chest Inspection: Symmetric Chest Wall Rise - Respiratory Respiratory Exam: Normal Lung Sounds Bilat Respiratory Exam: Bilateral Rales, Lower Rales - Cardiovascular Cardiovascular Exam: Regular Rate, Normal Rhythm, Normal Heart Sounds - Abdominal Exam Abdominal Exam: Normal Bowel Sounds, Soft, Distention, Tenderness Abdominal Tenderness: Diffuse, Moderate - Extremities Extremities Exam: Edema - Back Back Exam: Paraspinal Tenderness - Neurologic Neurological Exam: Alert, Oriented X3 - Psychiatric Psychiatric Exam: Anxious - Skin Skin Exam: Normal Color MDM - Additional Information Additional Information Obtained From: Family - Differential Diagnosis Differential Diagnosis: ABDOMINAL PAIN, BOWEL OBSTRUCTION, UTI Course - Treatment Treatment: SEE ORDERS. - Consultation Consultation Comments: DISCUS PATIENT WITH DR. VILLAVICENCIO. HE WILL SEE PATIENT. PCP DR. MAY ACCEPTED TO ADMIT PATIENT. - Education/Counseling Education/Counseling: Patient, Education Educated On: Treatment, Diagnosis, Needs for Follow Up ROR - Labs Reviewed Laboratory Results Reviewed?: Yes Result Diagrams: 05/27/17 01:10 05/27/17 01:10 Laboratory: WBC 21.8 X10^3/uL (3.6-10.0) H 05/27/17 01:10 RBC 4.51 X10^6/uL (3.5-5.4) 05/27/17 01:10 Hgb 13.9 g/dL (12.0-16.0) 05/27/17 01:10 Hct 41.7 % (36.0-47.0) 05/27/17 01:10 MCV 92.5 fL (80.0-100.0) 05/27/17 01:10 MCH 30.9 pg (27.0-34.0) 05/27/17 01:10 MCHC 33.4 g/dL (33.0-35.0) 05/27/17 01:10 RDW 14.0 % (11.6-16.5) 05/27/17 01:10 Plt Count 291 X10^3/uL (150.0-450.0) 05/27/17 01:10 MPV 9.0 fL (7.4-11.0) 05/27/17 01:10 Neut % 87.7 % (42.0-75.0) H 05/27/17 01:10 Lymph % 4.3 % (21.0-51.0) L 05/27/17 01:10 Garrett % 7.8 % (0.0-13.0) 05/27/17 01:10 Eos % 0.0 % (0.9-2.9) L 05/27/17 01:10 Baso % 0.2 % (0.2-1.0) 05/27/17 01:10 Neut # 19.1 x10^3/uL (2.2-4.8) H 05/27/17 01:10 Lymph # 0.9 X10^3/uL (1.3-2.9) L 05/27/17 01:10 Garrett # 1.7 x10^3/uL (0.3-0.8) H 05/27/17 01:10 Eos # 0.0 x10^3/uL (0.0-0.2) 05/27/17 01:10 Baso # 0.0 X10^3/uL (0.0-0.1) 05/27/17 01:10 Absolute Nucleated RBC 0.3 /100WBC 05/27/17 01:10 Sodium 139 mmol/L (136-145) 05/27/17 01:10 Corrected Sodium 140 mmol/L (136-145) 05/27/17 01:10 Potassium 4.0 mmol/L (3.5-5.1) 05/27/17 01:10 Chloride 95 mmol/L (98-107) L 05/27/17 01:10 Carbon Dioxide 32.8 mmol/L (21-32) H 05/27/17 01:10 BUN 54 mg/dL (7-18) H 05/27/17 01:10 Creatinine 2.88 mg/dL (0.55-1.02) H 05/27/17 01:10 Est GFR (MDRD) Af Amer 21 (>60) L 05/27/17 01:10 Est GFR (MDRD) Non-Af 18 (>60) L 05/27/17 01:10 Glucose 144 mg/dL (65-99) H 05/27/17 01:10 Lactic Acid 2.5 mmol/L (0.4-2.0) H 05/27/17 02:40 Calcium 9.5 mg/dL (8.5-10.1) 05/27/17 01:10 Corrected Calcium TNP 05/27/17 01:10 Total Bilirubin 0.50 mg/dL (0.2-1.0) 05/27/17 01:10 AST 35 Units/L (15-37) 05/27/17 01:10 ALT 36 Units/L (12-78) 05/27/17 01:10 Alkaline Phosphatase 120 Units/L (46-116) H 05/27/17 01:10 Total Protein 7.5 g/dL (6.4-8.2) 05/27/17 01:10 Albumin 3.6 g/dL (3.4-5.0) 05/27/17 01:10 Globulin 3.9 g/dL (2.5-4.5) 05/27/17 01:10 Albumin/Globulin Ratio 0.9 Ratio (1.1-2.1) L 05/27/17 01:10 Amylase 37 Units/L (25-115) 05/27/17 01:10 Lipase 99 Units/L (73-393) 05/27/17 01:10 Specimen Type Random urine 05/27/17 02:24 Urine Color Yellow (YELLOW) 05/27/17 02:24 Urine Appearance Cloudy (CLEAR) 05/27/17 02:24 Urine pH 5.0 (5.0 - 8.0) 05/27/17 02:24 Ur Specific [place] 1.025 (1.000-1.030) 05/27/17 02:24 Urine Protein 2+ (NEGATIVE) 05/27/17 02:24 Urine Glucose (UA) Negative (NEGATIVE) 05/27/17 02:24 Urine Ketones Negative (NEGATIVE) 05/27/17 02:24 Urine Occult Blood 2+ (NEGATIVE) 05/27/17 02:24 Urine Nitrite Negative (NEGATIVE) 05/27/17 02:24 Urine Bilirubin 1+ (NEGATIVE) 05/27/17 02:24 Urine Urobilinogen Normal (NORMAL) 05/27/17 02:24 Ur Leukocyte Esterase 3+ (NEGATIVE) 05/27/17 02:24 Urine RBC 3-5 /HPF (NEGATIVE) 05/27/17 02:24 Urine WBC 10-15 /HPF (NEGATIVE) 05/27/17 02:24 Ur Squamous Epith Cells Moderate /HPF (NEGATIVE) 05/27/17 02:24 Urine Bacteria 2+ /HPF (NEGATIVE) 05/27/17 02:24 Hyaline Casts Few /LPF (NEGATIVE) 05/27/17 02:24 Ur Culture Indicated? No/not indicated 05/27/17 02:24 - XRAY XRAY Interpreted by: Radiologist XRAY Findings: REPORT DISCUSS WITH PATIENT. - Diagnosis Discharge Problem: Small bowel obstruction Abdominal pain Qualifiers: Abdominal location: generalized Qualified Code(s): R10.84 - Generalized abdominal pain - Discharge Plan Disposition: 01 HOME, SELF-CARE Condition: Stable - Follow ups/Referrals - Instructions
[2017-05-27] MEDS ORDERED: PHENERGAN INJ 25 MG IV ONE (01:02)
[2017-05-27] MEDS ORDERED: PHENERGAN INJ 25 MG ONE ×2 (01:14→07:20)
[2017-05-27 01:34] LABS: BASOPHILS % (AUTO) 0.2 % (0.2-1.0); HEMATOCRIT 41.7 % (36.0-47.0); HEMOGLOBIN 13.9 g/dL (12.0-16.0); LYMPHOCYTES # (AUTO) 0.9 X10^3/uL (1.3-2.9); LYMPHOCYTES % (AUTO) 4.3 % (21.0-51.0); MEAN CORPUSCULAR HEMOGLOBIN 30.9 pg (27.0-34.0); MEAN CORPUSCULAR HGB CONC 33.4 g/dL (33.0-35.0); MEAN CORPUSCULAR VOLUME 92.5 fL (80.0-100.0); MONOCYTES # (AUTO) 1.7 x10^3/uL (0.3-0.8); MONOCYTES % (AUTO) 7.8 % (0.0-13.0); NEUTROPHILS # (AUTO) 19.1 x10^3/uL (2.2-4.8); NEUTROPHILS % (AUTO) 87.7 % (42.0-75.0); PLATELET COUNT 291 X10^3/uL (150.0-450.0); RED BLOOD COUNT 4.51 X10^6/uL (3.5-5.4); WHITE BLOOD COUNT 21.8 X10^3/uL (3.6-10.0)
[2017-05-27 01:42] LABS: ALANINE AMINOTRANSFERASE 36 Units/L (12-78); ALBUMIN 3.6 g/dL (3.4-5.0); ALKALINE PHOSPHATASE 120 Units/L (46-116); AMYLASE 37 Units/L (25-115); ASPARTATE AMINO TRANSFERASE 35 Units/L (15-37); BLOOD UREA NITROGEN 54 mg/dL (7-18); CALCIUM 9.5 mg/dL (8.5-10.1); CARBON DIOXIDE 32.8 mmol/L (21-32); CHLORIDE 95 mmol/L (98-107); COR NA(FOR HYPERGLY) 140 mmol/L (136-145); CREATININE 2.88 mg/dL (0.55-1.02); LIPASE 99 Units/L (73-393); SODIUM 139 mmol/L (136-145); TOTAL PROTEIN 7.5 g/dL (6.4-8.2); eGFR BLACK RACES 21 (>60); eGFR NON BLACK RACES 18 (>60)
[2017-05-27 02:31] LABS: BILIRUBIN,URINE 1+ (NEGATIVE); BLOOD/HEMOGLOBIN,URINE 2+ (NEGATIVE); GLUCOSE, URINE NEGATIVE (NEGATIVE); KETONES,URINE NEGATIVE (NEGATIVE); LEUKOCYTE ESTERASE ,URINE 3+ (NEGATIVE); NITRITES,URINE NEGATIVE (NEGATIVE); PROTEIN,URINE 2+ (NEGATIVE); UROBILINOGEN,URINE NORMAL (NORMAL)
[2017-05-27 02:34] LABS: APPEARANCE,URINE CLOUDY (CLEAR); COLOR,URINE YELLOW (YELLOW)
[2017-05-27 02:37] LABS: BACTERIA,URINE 2+ /HPF (NEGATIVE); HYALINE CASTS, URINE FEW /LPF (NEGATIVE); SQUAMOUS EPITHELIAL CELL,UR MODERATE /HPF (NEGATIVE)
[2017-05-27] MEDS ORDERED: FORTAZ or TAZICEF INJ 1 GM in NS 50 ML IV + SPIKE MINIBAG* 50 ML IV ONE (02:44)
[2017-05-27] MEDS ORDERED: FORTAZ or TAZICEF INJ ONE (02:55)
[2017-05-27] MEDS ORDERED: NS 50 ML IV + SPIKE MINIBAG* 50 ML IV ONE (02:55)
[2017-05-27] MEDS: NS 1000 ML 1,000 ML IV SCH ×2 (03:18→14:54)
--- NOTE | 2017-05-27 05:54 | CT ---
EXAM: CT ABDOMEN AND PELVIS WITHOUT CONTRAST INDICATION: Abdominal pain COMPARISION: No priors available for comparison TECHNIQUE: Axial CT examination of the abdomen and pelvis was performed without intravenous contrast. Coronal an d sagittal reconstructions were created using the axial data. FINDINGS: The lung bases are clear. The liver, spleen, pancreas, adrenal glands, and kidneys are normal. The ga llbladder has been removed. There is no evidence of biliary ductal dilatation. The aorta and inferior vena cava are normal in caliber. Dilated air and fluid-filled small bowel loops seen in the anterior abdomen. . No abnormal mass, lymphadenopathy, or fluid collection. Urinary bladder is normal. The regional skeleton is intact. IMPRESSION: Findings consistent with small-bowel obstruction involving a loop of bowel in the anterior abdomen. Reported By:
[2017-05-27] MEDS ORDERED: XYLOCAINE VISCOUS ONE (06:49)
[2017-05-27] MEDS ORDERED: CONSULT PHARMACY - ANTIBIOTIC XX SCH (07:00)
[2017-05-27] MEDS ORDERED: PEPCID 20 MG IV PREMIX* 20 MG/50 ML BAG IV PRN ×2 (07:06→08:00)
--- NOTE | 2017-05-27 07:40 | RAD ---
HISTORY: NG tube placement Study: AP lower chest/upper abdomen Comparison: 05/10/2017 Findings: There is nasogastric tube with its tip and side hole below the left hemidiaphragm likely within the s tomach. The lower lung clifton are clear. There is a dilated loop of small bowel in the left upper neftaly drant which could be due to ileus or small-bowel obstruction. Acute abdominal series may be of furthe r diagnostic value. IMPRESSION: NG tube tip and side hole within the stomach Dilated small bowel left upper quadrant Reported By:
[2017-05-27] MEDS ORDERED: NS 1000 ML 1,000 ML IV SCH (08:00)
[2017-05-27] MEDS: FLAGYL IV PREMIX 500 MG BAG 500 MG/100 ML BAG IV SCH ×4 (08:49→21:30)
[2017-05-27] MEDS: MORPHINE SULFATE INJ 2 MG INJ IVP PRN ×3 (08:50→21:28)
[2017-05-27] MEDS: MERREM IV SCH (08:52)
[2017-05-27] MEDS: ZOFRAN INJ 4 MG VIAL IVP PRN ×3 (08:53→21:30)
[2017-05-27 10:55] VITALS: BMI 43.0
--- NOTE | 2017-05-27 12:16 | RAD ---
HISTORY: Shortness of breath Study: Portable AP chest Comparison: May 22, 2017 Findings: The trachea is midline. There is a nasogastric tube in the stomach. The cardiac silhouette is normal. There is a right subclavian Port-A-Cath in place as before.. The lungs are clear without focal infi ltrate or effusion. The bony thorax is unremarkable. IMPRESSION: 1. No acute cardiopulmonary disease. Reported By:
--- NOTE | 2017-05-27 13:40 | DR.CONSULT ---
Consult - Consultation for Day of: Date: 05/27/17 - Chief Complaint Chief Complaint: Small bowel obstruction. - Allergies Allergies/Adverse Reactions: Allergies Allergy/AdvReac Type Severity Reaction Status Date / Time ketorolac [From Toradol] Allergy Verified 05/27/17 06:48 nalbuphine [From Nubain] Allergy Verified 05/27/17 06:48 Penicillins Allergy Verified 05/27/17 06:48 Sulfa (Sulfonamide Allergy Verified 05/27/17 06:48 Antibiotics) [SULFA] BETA BLOCKERS Allergy Uncoded 05/27/17 06:48 - History of Present Illness History of Present Illness: The patient is a 62 yo F who presented to the [facility] after signing out AMA in [place]. She was sent to [facility] for cardiology evaluation after significant edema and diagnosed with congestive heart failure. The patient underwent cardiac catherization that was normal according to the patient. She developed persistent nausea and requested to be discharged. She signed out AMA and was brought to [facility] ER. Workup revealed leukocytosis, TRINITY with elevated BUN and Cr, as well as a UTI. A CT demonstrated a SBO. The patient was admitted and an NGT placed. This was accidentally removed. Surgery was consulted. The patient reports persistent nausea but vomiting has improved slightly. Last BM 2 days ago that was normal. The patient has undergone appendectomy, cholecystectomy, as well as partial colectomy. - Past Medical History Past Medical History: COPD, Coronary Artery Disease - Past Surgical History Surgical History: Appendectomy, Cholecystectomy, Tonsillectomy, Other (Partial colectomy) - Family History Family Medical History: Coronary Artery Disease, Hypertension - Social History Does patient currently use any type of tobacco product: No Have you used tobacco products in the last 12 months: No Type of Tobacco Use: None How many years tobacco product used: 50 Does any household member use tobacco: Yes Alcohol Use: None Drug Use: Prescription Drugs - Review of Systems Constitutional: Weakness, Malaise Eyes: No Symptoms Reported ENT: No Symptoms Reported Cardiovascular: Chest Pain (Pressure) Gastrointestinal: Nausea, Vomiting, Abdominal Pain Genitourinary: Incontinence Musculoskeletal: No Symptoms Reported Skin: Other (Recent cellulitis) Neurological: No Symptoms Reported - Physical Exam Vital Signs: Temperature 97.7 F Pulse Rate [Left Brachial] 104 Pulse Rate 116 Respiratory Rate 20 Blood Pressure [Left Arm] 123/71 Blood Pressure [Right Arm] 98/53 Blood Pressure 99/68 O2 Sat by Pulse Oximetry 96 Oriented: Normal Eyes: Normal Ear: Normal Nose: Normal Respiratory: Diminished Throughout Cardiovascular: Normal Auscultation: Bowel Sounds: Decreased Palpation: Normal Tenderness: Periumbilical Skin: Normal Musculoskeletal: Normal Psychiatric: Normal Mood Description: Calm Affect: Normal - Plan Plan: 62 yo F with mulitple medical problems. 1. SBO. Recommend follow-up abdominal XR and will likely need NGT decompression. (+) Leukocytosis with left shift but also (+) UA. Slightly elevated lactic acid but also TRINITY. On exam, moderately TTP periumbilical. No peritoneal signs. If fails to improve, will require surgical intervention. 2. Recent edema. No CHF per patient. Questionable history of pericarditis. No rub on auscultation. Check TTE. 3. TRINITY. Continue IVF resuscitation.
[2017-05-27] MEDS ORDERED: NS 1000 ML 1,000 ML IV ONE (13:51)
--- NOTE | 2017-05-27 15:21 | RAD ---
HISTORY: Abdominal pain and small bowel obstruction Study: Acute abdominal series Comparison: Today at 7:30 a.m. Findings: The trachea is midline. The cardiac silhouette is normal. There is a right-sided Port-A-Cath in plac e. The nasogastric tube has apparently been removed.. The lungs are clear without focal infiltrate o r effusion. The bony thorax is unremarkable. Flat plate and upright evaluation of the abdomen demonstrates a gaseous distended small bowel over 5 cm diameter. There are cholecystectomy clips. There is no evidence for free air. There is formed stoo l in the left colon.. No pathological soft tissue mass or calcification can be observed. The bony s tructures are grossly intact. IMPRESSION: 1. No acute cardiopulmonary disease. 2. Findings compatible with small bowel obstruction as before Reported By:
--- NOTE | 2017-05-27 16:10 | RAD ---
History: Nasogastric tube placement Study: AP chest and upper abdomen Findings: There is a nasogastric tube with the tip in the body of the stomach. The lungs remain gross ly clear and the heart size is normal. Impression: Satisfactory nasogastric tube placement Reported By:
[2017-05-27] MEDS: XYLOCAINE VISCOUS MT PRN (16:20)
[2017-05-27] MEDS: ZOFRAN INJ 4 MG VIAL 16 MG, ATIVAN INJ 2 MG VIAL 1 MG, DECADRON INJ 10 MG in NS 50 ML I... IV PRN (16:22)
--- NOTE | 2017-05-27 18:46 | DR.H&P ---
H&P - History & Physical for Day of: H&P Date: 05/27/17 - Chief Complaint Chief Complaint: abdominal pain, nausea and vomiting - Allergies Allergies/Adverse Reactions: Allergies Allergy/AdvReac Type Severity Reaction Status Date / Time ketorolac [From Toradol] Allergy Verified 05/27/17 06:48 nalbuphine [From Nubain] Allergy Verified 05/27/17 06:48 Penicillins Allergy Verified 05/27/17 06:48 Sulfa (Sulfonamide Allergy Verified 05/27/17 06:48 Antibiotics) [SULFA] BETA BLOCKERS Allergy Uncoded 05/27/17 06:48 - History of Present Illness History of Present Illness: ppatient is a 62-year-old white female who was an admission from the ER after presenting with complaints of abdominal pain nausea and vomiting. Patient was recently on 05-26 from [facility] where she had a cardiac catheter following her transfer from this facility. Patient states she has had formed stool one day ago. Patient states she's had severe nausea and persistent vomiting and abdominal pain. Patient complains of abdominal distention. Patient has a past medical history of coronary artery disease, CHF, COPD with respiratory failure and O2 dependence as well as multi-joint degenerative disc disease and arthritis. Plan to admit patient, NG tube at low intermittent suction, nothing by mouth, pain and nausea control. Obtain chest x-ray and strict I's and O's. - Past Medical History Past Medical History: Anxiety, Arthritis, Asthma, CHF, COPD, Coronary Artery Disease, Hypertension - Past Surgical History Surgical History: Appendectomy, Cholecystectomy, Tonsillectomy, Other (Partial colectomy) - Family History Family Medical History: Coronary Artery Disease, Hypertension - Social History Does patient currently use any type of tobacco product: No Have you used tobacco products in the last 12 months: No Type of Tobacco Use: None How many years tobacco product used: 50 Does any household member use tobacco: Yes Alcohol Use: None Drug Use: Prescription Drugs - Review of Systems Constitutional: Weakness Eyes: No Symptoms Reported ENT: No Symptoms Reported Respiratory: Shortness of Breath Cardiovascular: No Symptoms Reported, Edema Gastrointestinal: Nausea, Vomiting, Abdominal Pain Genitourinary: No Symptoms Reported Musculoskeletal: Shoulder Pain, Hand Pain, Leg Pain Skin: Bruising, Ecchymosis Neurological: Weakness - Physical Exam Vital Signs: Temperature 98.1 F Pulse Rate [Left Brachial] 105 Pulse Rate 116 Respiratory Rate 22 Blood Pressure [Left Arm] 132/76 Blood Pressure [Right Arm] 98/53 Blood Pressure 99/68 O2 Sat by Pulse Oximetry 95 Oriented: Normal Eyes: Normal Ear: Normal Nose: Normal Throat: Normal Respiratory: Diminished Throughout Cardiovascular: Edema : Normal Auscultation: Bowel Sounds: Decreased Palpation: Other (diffuse distention) Tenderness: Diffuse Skin: Decreased Turgur, Bruising Musculoskeletal: Back:Thoracic, Back:Lumbar Psychiatric: Anxiety Affect: Anxious Speech Pattern: Clear, Appropriate - Assessment/Plan (1) Small bowel obstruction Status: Acute Plan: admit patient, nothing by mouth, NG tube to low intermittent suction, IV pain and nausea control. Strict I's and O's, cardiac monitoring, chest x-ray on admission. Blood pressure monitoring, repeat a.m. labs, Giron catheter as needed (2) CHF (congestive heart failure) Status: Chronic (3) COPD (chronic obstructive pulmonary disease) Status: Chronic (4) DHARA (generalized anxiety disorder) Status: Chronic (5) GERD (gastroesophageal reflux disease) Status: Chronic (6) Hypertension Status: Chronic
[2017-05-27] MEDS ORDERED: CHLORASEPTIC SPRAY MT PRN (23:09)
[2017-05-28] MEDS ORDERED: XYLOCAINE VISCOUS ONE (00:02)
[2017-05-28] MEDS: XYLOCAINE VISCOUS MT PRN (00:07)
[2017-05-28 00:52] LABS: BILIRUBIN,URINE NEGATIVE (NEGATIVE); BLOOD/HEMOGLOBIN,URINE NEGATIVE (NEGATIVE); GLUCOSE, URINE NEGATIVE (NEGATIVE); KETONES,URINE 1+ (NEGATIVE); LEUKOCYTE ESTERASE ,URINE NEGATIVE (NEGATIVE); NITRITES,URINE NEGATIVE (NEGATIVE); PROTEIN,URINE 1+ (NEGATIVE); UROBILINOGEN,URINE NORMAL (NORMAL)
[2017-05-28 00:59] LABS: APPEARANCE,URINE CLEAR (CLEAR); BACTERIA,URINE TRACE /HPF (NEGATIVE); COLOR,URINE YELLOW (YELLOW); RBC,URINE NONE SEEN /HPF (NEGATIVE); SQUAMOUS EPITHELIAL CELL,UR RARE /HPF (NEGATIVE)
[2017-05-28] MEDS ORDERED: DECADRON INJ PRESERVATIVE-FREE IM ONE (02:58)
[2017-05-28] MEDS ORDERED: ATIVAN INJ 2 MG VIAL ONE (02:59)
[2017-05-28] MEDS: MORPHINE SULFATE INJ 2 MG INJ IVP PRN ×2 (03:14→09:00)
[2017-05-28] MEDS: ZOFRAN INJ 4 MG VIAL 16 MG, ATIVAN INJ 2 MG VIAL 1 MG, DECADRON INJ 10 MG in NS 50 ML I... IV PRN (03:16)
[2017-05-28] MEDS: FLAGYL IV PREMIX 500 MG BAG 500 MG/100 ML BAG IV SCH ×2 (04:10→09:01)
[2017-05-28 05:22] LABS: BASOPHILS % (AUTO) 0.2 % (0.2-1.0); HEMATOCRIT 36.7 % (36.0-47.0); HEMOGLOBIN 12.4 g/dL (12.0-16.0); LYMPHOCYTES # (AUTO) 0.4 X10^3/uL (1.3-2.9); MEAN CORPUSCULAR HEMOGLOBIN 31.3 pg (27.0-34.0); MEAN CORPUSCULAR HGB CONC 33.7 g/dL (33.0-35.0); MEAN CORPUSCULAR VOLUME 92.9 fL (80.0-100.0); MEAN PLATELET VOLUME 9.2 fL (7.4-11.0); MONOCYTES # (AUTO) 0.3 x10^3/uL (0.3-0.8); MONOCYTES % (AUTO) 2.5 % (0.0-13.0); NEUTROPHILS # (AUTO) 10.4 x10^3/uL (2.2-4.8); NEUTROPHILS % (AUTO) 93.3 % (42.0-75.0); PLATELET COUNT 176 X10^3/uL (150.0-450.0); RED BLOOD COUNT 3.95 X10^6/uL (3.5-5.4); RED CELL DISTRIBUTION WIDTH 13.9 % (11.6-16.5); WHITE BLOOD COUNT 11.1 X10^3/uL (3.6-10.0)
[2017-05-28 05:36] LABS: ALBUMIN 3.1 g/dL (3.4-5.0); CALCIUM 8.7 mg/dL (8.5-10.1); CARBON DIOXIDE 30.2 mmol/L (21-32); COR CA(FOR HYPOALB) 9.4 mg/dL (8.5-10.1); CREATININE 1.61 mg/dL (0.55-1.02); TOTAL PROTEIN 6.4 g/dL (6.4-8.2)
[2017-05-28 06:00] LABS: PLATELET MORPHOLOGY COMMENT NORMAL (NORMAL)
[2017-05-28] MEDS: MERREM IV SCH (09:01)
[2017-05-28] MEDS: ZOFRAN INJ 4 MG VIAL IVP PRN (09:01)
[2017-05-28] MEDS ORDERED: PHENERGAN INJ 25 MG IV PRN (10:09)
[2017-05-28] MEDS ORDERED: XANAX PO SCH (11:00)
[2017-05-28] MEDS ORDERED: NICOTINE PATCH TD SCH (11:00)
[2017-05-28] MEDS ORDERED: VISTARIL PO PRN (16:09)
[2017-05-28 17:13] VITALS: BP 128/60
== END 2017-05-28 16:55 | disposition left against medical advice (07) | DRG 389 ==
LOC: ER 22:24 → MED/SURG 05-27 07:03
PROVIDERS: ADMIT Internal Medicine; ATTEND Internal Medicine
DX: K56.699 Other intestinal obstruction unspecified as to partial versus complete obstruction (principal); N39.0 Urinary tract infection, site not specified; R10.84 Generalized abdominal pain; R11.2 Nausea with vomiting, unspecified; J44.9 Chronic obstructive pulmonary disease, unspecified; I25.10 Atherosclerotic heart disease of native coronary artery without angina pectoris; R06.02 Shortness of breath; D72.828 Other elevated white blood cell count; R94.4 Abnormal results of kidney function studies; I50.9 Heart failure, unspecified; F41.8 Other specified anxiety disorders; K21.9 Gastro-esophageal reflux disease without esophagitis; I10 Essential (primary) hypertension; R60.0 Localized edema
CPT/HCPCS: 36415; 71010; 74000; 74022; 74176; 80053; 81001; 82150; 83605; 83690; 85025; 87040; 93306; 94760; 96365; 96367; 96374; 96375; 99284; A4222; S0030; J0713; J1100; J2060; J2270; J2405; J2550

== ENCOUNTER → 2017-06-19 | Outpatient (CLI) | payer OTHER, MEDICAID ==
[2017-05-28 17:13] VITALS: BP 128/60
[2017-06-19 14:06] LABS: BLOOD UREA NITROGEN 16 mg/dL (7-18); CALCIUM 9.3 mg/dL (8.5-10.1); CARBON DIOXIDE 31.1 mmol/L (21-32); CHLORIDE 101 mmol/L (98-107); CREATININE 1.37 mg/dL (0.55-1.02); SODIUM 139 mmol/L (136-145); eGFR BLACK RACES 50 (>60); eGFR NON BLACK RACES 41 (>60)
== END ==
LOC: LAB 13:14
PROVIDERS: ATTEND Physician Assistant
DX: N18.3 Chronic kidney disease, stage 3 (moderate) (principal)
CPT/HCPCS: 36415; 80048

== ENCOUNTER 2017-08-03 05:35 | Emergency (ER) | payer OTHER, MEDICAID ==
[2017-08-03] MEDS ORDERED: DUONEB 0.5 MG/3 MG ONE (05:39)
--- NOTE | 2017-08-03 05:43 | DR.SOBA ---
HPI - Time Seen Time seen: 05:35 - Reviewed Nurses Notes Reviewed: Yes - Source History Provided: Patient - Mode of Arrival Mode of Arrival: EMS - Duration Duration: Days - Context Onset:: With Light Exertion PE Risk Factors:: None History of:: COPD, Hyperventiliation Currently on:: Steroids Prehospital Care:: O2 - Modifying Factors Worsens:: Exertion Improves:: Nothing - Associated Signs and Symptoms Associated Signs and Symptoms: None PMH - PMH Past Medical History: Anxiety, Arthritis, Asthma, CHF, COPD, Coronary Artery Disease, Hypertension Past Surgical History: Yes Surgical History: Appendectomy, Cholecystectomy, Tonsillectomy, Other (Partial colectomy) - Family History Family Medical History: Coronary Artery Disease, Hypertension - Social History Do you use any recreational Drugs:: No ROS - Review of Systems Constitutional: No Symptoms Reported Eyes: No Symptoms Reported ENTM: No Symptoms Reported Respiratoy: Short of Breath, Wheezing Cardiovascular: No Symptoms Reported Gastrointestinal/Abdominal: No Symptoms Reported Genitourinary: No Symptoms Reported Neurological: No Symptoms Reported Musculoskeletal: No Symptoms Reported Integumentary: No Symptoms Reported Hematologic/Lymphatic: No Symptoms Reported Endocrine: No Symptoms Reported Psychiatric: No Symptoms Reported All Other Systems: Reviewed and Negative PE - Vital Signs Vitals: Temperature 98.6 F Pulse Rate [Apical] 103 Pulse Rate 115 Respiratory Rate 24 Blood Pressure [Left Arm] 153/69 Blood Pressure [Right Arm] 98/53 Blood Pressure 192/85 O2 Sat by Pulse Oximetry 97 - General Limitations: No Limitations General Appearance: Alert, In Distress - Head Head Exam: Normal Inspection - Eyes Eye exam: Normal Appearance - ENT ENT Exam: Normal Exam - Neck Neck Exam: Normal Inspection, Full ROM - Chest Chest Inspection: Normal Inspection, Symmetric Chest Wall Rise - Respiratory Respiratory Exam: Bilateral Wheezing (expiratory) - Cardiovascular Cardiovascular Exam: Regular Rate, Normal Rhythm - Abdominal Exam Abdominal Exam: Normal Inspection, Normal Bowel Sounds, Soft - Extremities Extremities Exam: Normal Inspection, Full ROM, Normal Capillary Refill - Back Back Exam: Normal Inspection - Neurologic Neurological Exam: Alert, Oriented X3, CN II-XII Intact - Psychiatric Psychiatric Exam: Normal Affect, Anxious - Skin Skin Exam: Warm Course - Reevaluation 1st: Improved - Education/Counseling Education/Counseling: Patient, Family, Counseling Educated On: Treatment, Diagnosis, Prognosis, Needs for Follow Up ROR - Labs Reviewed Laboratory: Sample Site Lux 08/03/17 05:43 ABG pH 7.330 (7.35-7.45) L 08/03/17 05:43 ABG pCO2 66.0 mmHg (35.0-45.0) H* 08/03/17 05:43 ABG pO2 65.0 mmHg (80.0-100.0) L 08/03/17 05:43 ABG HCO3 34.8 mmol/L (22-26) H* 08/03/17 05:43 ABG O2 Saturation 91.0 % (90-100) 08/03/17 05:43 ABG Base Excess 6.8 mmol/L (-2.0-2.0) H 08/03/17 05:43 Sameer Test Na 08/03/17 05:43 A-a Gradient 109.0 mmHg 08/03/17 05:43 FiO2 36.000 08/03/17 05:43 Blood Gas Comments Fermín abg well-mtf 08/03/17 05:43 - Diagnosis Discharge Problem: COPD (chronic obstructive pulmonary disease) - Discharge Plan Disposition: 01 HOME, SELF-CARE Condition: Stable - Follow ups/Referrals Follow ups/Referrals: TING CHAO [Primary Care Provider] - 3 days - Instructions
[2017-08-03] MEDS ORDERED: CATAPRES TAB 0.1 MG PO ONE (05:46)
[2017-08-03] MEDS ORDERED: SOLU-Medrol 125 MG VIAL IVP ONE (05:46)
[2017-08-03] MEDS ORDERED: DUONEB 0.5 MG/3 MG NEB ONE (05:47)
[2017-08-03] MEDS ORDERED: SOLU-Medrol 125 MG VIAL ONE (05:52)
[2017-08-03 05:58] VITALS: BMI 41.3
[2017-08-03 06:00] LABS: ABG BASE EXCESS 6.8 mmol/L (-2.0-2.0)
[2017-08-03 06:02] LABS: ABG HCO3 34.8 mmol/L (22-26)
[2017-08-03 06:17] LABS: BASOPHILS # (AUTO) 0.1 X10^3/uL (0.0-0.1); BASOPHILS % (AUTO) 0.7 % (0.2-1.0); EOSINOPHILS % (AUTO) 0.2 % (0.9-2.9); HEMATOCRIT 39.3 % (36.0-47.0); HEMOGLOBIN 12.9 g/dL (12.0-16.0); LYMPHOCYTES # (AUTO) 1.3 X10^3/uL (1.3-2.9); LYMPHOCYTES % (AUTO) 12.5 % (21.0-51.0); MEAN CORPUSCULAR HEMOGLOBIN 30.9 pg (27.0-34.0); MEAN CORPUSCULAR HGB CONC 32.8 g/dL (33.0-35.0); MEAN CORPUSCULAR VOLUME 94.2 fL (80.0-100.0); MEAN PLATELET VOLUME 8.6 fL (7.4-11.0); MONOCYTES # (AUTO) 1.4 x10^3/uL (0.3-0.8); MONOCYTES % (AUTO) 13.8 % (0.0-13.0); NEUTROPHILS # (AUTO) 7.3 x10^3/uL (2.2-4.8); NEUTROPHILS % (AUTO) 72.8 % (42.0-75.0); PLATELET COUNT 329 X10^3/uL (150.0-450.0); RED BLOOD COUNT 4.17 X10^6/uL (3.5-5.4); RED CELL DISTRIBUTION WIDTH 14.8 % (11.6-16.5); WHITE BLOOD COUNT 10.1 X10^3/uL (3.6-10.0)
--- NOTE | 2017-08-03 06:30 | RAD ---
Examination portable AP chest History: SOB Comparison reference 05/27/2017 Findings: Continued normal heart size with arteriosclerotic aorta. The lungs remain grossly clear. Th e retrocardiac area is partly obscured. There is no obvious pneumothorax, large pleural effusion or p ulmonary edema. Right subclavian injection port position is stable. Impression: No acute process identified. See above Reported By:
[2017-08-03 06:35] LABS: BLOOD UREA NITROGEN 21 mg/dL (7-18); CALCIUM 8.7 mg/dL (8.5-10.1); CARBON DIOXIDE 33.7 mmol/L (21-32); CHLORIDE 102 mmol/L (98-107); CREATININE 1.12 mg/dL (0.55-1.02); SODIUM 141 mmol/L (136-145); TROPONIN I < 0.02 ng/mL (0-1.5); eGFR BLACK RACES > 60 (>60); eGFR NON BLACK RACES 52 (>60)
[2017-08-03 06:39] LABS: ALANINE AMINOTRANSFERASE 66 Units/L (12-78); ALBUMIN 3.5 g/dL (3.4-5.0); ALKALINE PHOSPHATASE 132 Units/L (46-116); ASPARTATE AMINO TRANSFERASE 58 Units/L (15-37); CKMB % 3.2 % (<4); CREATINE KINASE 37 Units/L (26-192); CREATINE KINASE MB 1.2 ng/mL (0-4.0); TOTAL PROTEIN 7.4 g/dL (6.4-8.2)
[2017-08-03] MEDS ORDERED: PULMICORT NEB TX 0.5 MG NEB ONE (06:45)
[2017-08-03] MEDS ORDERED: PULMICORT NEB TX 0.5 MG NEB SCH (06:45)
[2017-08-03 06:49] VITALS: BP 144/65
[2017-08-03] MEDS ORDERED: XOPENEX 1.25 MG/3 ML NEBULE NEB ONE ×2 (07:13→07:24)
== END 2017-08-03 07:57 | disposition home or self-care (01) ==
LOC: ER 05:35
DX: J44.9 Chronic obstructive pulmonary disease, unspecified (principal)
CPT/HCPCS: 36415; 36600; 71010; 80053; 82550; 82553; 82803; 84484; 85025; 93005; 93010; 94640; 96365; 96374; 96375; 99283; 99284; J2930; J7620; J7626

== ENCOUNTER 2017-08-04 09:02 | Inpatient (IN) | payer OTHER, MEDICAID ==
[2017-08-04] MEDS ORDERED: DUONEB 0.5 MG/3 MG NEB ONE (09:25)
[2017-08-04] MEDS ORDERED: SOLU-Medrol 125 MG VIAL IVP ONE (09:26)
--- NOTE | 2017-08-04 09:28 | DR.SOBA ---
HPI - Time Seen Time seen: 09:20 - Primary Care Physician Primary Care Physician: TING CHAO [employer] - Complaints Chief Complaint Doctors Comments: She presents with recurrence of SOB and wheezing since 0400 hrs this a.m. She has non-productive cough but with no fever or diaphoresis. S/S have been ongoing since 7 days. She denies chest pain. She was seen in the E.D. in early interventionist hours yesterday and discharged home with resolution of s/s. She was feeling better till about 0400hrs. today. Chief Complaint:: EMS TONED OUT TO PT WITH SOB, PT HAS EXP WHEEZES NOTED AND PT TOOK A DUO NEB THIS AM AND EMS PLACED PT ON NRB,, SATS ARE 100 PERCENT,,,, PT SEEN IN ER ON 08/03/17 FOR SIMILAR ISSUES. Self Treatment fo Chief Complaint: PT PLACED ON 4 LPM AND SATS ARE 98 PERCENT.. - Reviewed Nurses Notes Reviewed: Yes - Source History Provided: Patient - Mode of Arrival Mode of Arrival: EMS - Timing Onset of Chief Complaint: 08/03/17 - Context History of:: COPD Currently on:: Inhaled Bronchodilators Prehospital Care:: O2, Inhaled B2 - Modifying Factors Worsens:: Exertion Improves:: Nothing PMH - PMH Past Medical History: Yes Past Medical History: Anxiety, Arthritis, Asthma, CHF, COPD, Coronary Artery Disease, Hypertension Past Surgical History: Yes Surgical History: Appendectomy, Cholecystectomy, Tonsillectomy, Other - Family History History of Family Medical Conditions: Yes Family Medical History: Coronary Artery Disease, Hypertension - Social History Does patient currently use any type of tobacco product: No Have you used tobacco products in the last 12 months: No Type of Tobacco Use: None Does any household member use tobacco: No Alcohol Use: None Do you use any recreational Drugs:: No Lives With: Family Lives Where: Home - infectious screening In the last 2 months have you had wt loss of >10#?: NO Have you had fever, night sweats or hemotysis?: No Have you traveled outside the country in the last 6 months?: No Isolation: Standard ROS - Review of Systems Constitutional: No Symptoms Reported Eyes: No Symptoms Reported Respiratoy: Non-Productive Cough, Short of Breath, Wheezing Cardiovascular: No Symptoms Reported Gastrointestinal/Abdominal: No Symptoms Reported Genitourinary: No Symptoms Reported Neurological: No Symptoms Reported Musculoskeletal: No Symptoms Reported Integumentary: No Symptoms Reported Hematologic/Lymphatic: No Symptoms Reported Endocrine: No Symptoms Reported Psychiatric: No Symptoms Reported All Other Systems: Reviewed and Negative PE - Vital Signs Vitals: Temperature 98.5 F Pulse Rate [Left Brachial] 89 Pulse Rate 116 Respiratory Rate 22 Blood Pressure [Left Arm] 124/58 Blood Pressure [Right Arm] 98/53 Blood Pressure 151/63 O2 Sat by Pulse Oximetry 95 - General Limitations: No Limitations General Appearance: Alert, In No Apparent Distress - Head Head Exam: Normal Inspection - Eyes Eye exam: Normal Appearance, PERRL, EOMI - ENT ENT Exam: Normal Exam - Neck Neck Exam: Normal Inspection, Full ROM, Trachea Midline - Chest Chest Inspection: Normal Inspection - Respiratory Respiratory Exam: Bilateral Wheezing - Cardiovascular Cardiovascular Exam: Regular Rate, Normal Rhythm - Abdominal Exam Abdominal Exam: Normal Inspection, Normal Bowel Sounds, Soft - Extremities Extremities Exam: Normal Inspection - Back Back Exam: Normal Inspection - Neurologic Neurological Exam: Alert, Oriented X3, CN II-XII Intact - Psychiatric Psychiatric Exam: Normal Affect, Normal Mood - Skin Skin Exam: Warm, Dry, Intact, Normal Color Course - Reevaluation 1st: Improved - Consultation Call Returned: 10:28 - Education/Counseling Education/Counseling: Patient, Family, Counseling Educated On: Treatment, Diagnosis, Prognosis, Needs for Follow Up ROR - Labs Reviewed Result Diagrams: 08/04/17 09:10 08/04/17 09:10 Laboratory: WBC 14.2 X10^3/uL (3.6-10.0) H 08/04/17 09:10 RBC 4.25 X10^6/uL (3.5-5.4) 08/04/17 09:10 Hgb 13.0 g/dL (12.0-16.0) 08/04/17 09:10 Hct 40.3 % (36.0-47.0) 08/04/17 09:10 MCV 94.8 fL (80.0-100.0) 08/04/17 09:10 MCH 30.5 pg (27.0-34.0) 08/04/17 09:10 MCHC 32.2 g/dL (33.0-35.0) L 08/04/17 09:10 RDW 14.7 % (11.6-16.5) 08/04/17 09:10 Plt Count 373 X10^3/uL (150.0-450.0) 08/04/17 09:10 MPV 8.7 fL (7.4-11.0) 08/04/17 09:10 Neut % 75.5 % (42.0-75.0) H 08/04/17 09:10 Lymph % 9.8 % (21.0-51.0) L 08/04/17 09:10 [place] % 13.9 % (0.0-13.0) H 08/04/17 09:10 Eos % 0.0 % (0.9-2.9) L 08/04/17 09:10 Baso % 0.8 % (0.2-1.0) 08/04/17 09:10 Neut # 10.7 x10^3/uL (2.2-4.8) H 08/04/17 09:10 Lymph # 1.4 X10^3/uL (1.3-2.9) 08/04/17 09:10 [place] # 2.0 x10^3/uL (0.3-0.8) H 08/04/17 09:10 Eos # 0.0 x10^3/uL (0.0-0.2) 08/04/17 09:10 Baso # 0.1 X10^3/uL (0.0-0.1) 08/04/17 09:10 Absolute Nucleated RBC 0.0 /100WBC 08/04/17 09:10 Sodium 144 mmol/L (136-145) 08/04/17 09:10 Corrected Sodium TNP 08/04/17 09:10 Potassium 4.1 mmol/L (3.5-5.1) 08/04/17 09:10 Chloride 104 mmol/L (98-107) 08/04/17 09:10 Carbon Dioxide 33.8 mmol/L (21-32) H 08/04/17 09:10 BUN 26 mg/dL (7-18) H 08/04/17 09:10 Creatinine 1.04 mg/dL (0.55-1.02) H 08/04/17 09:10 Est GFR (MDRD) Af Amer > 60 (>60) 08/04/17 09:10 Est GFR (MDRD) Non-Af 57 (>60) L 08/04/17 09:10 Glucose 98 mg/dL (65-99) 08/04/17 09:10 Calcium 8.5 mg/dL (8.5-10.1) 08/04/17 09:10 Corrected Calcium TNP 08/04/17 09:10 Total Bilirubin 0.20 mg/dL (0.2-1.0) 08/04/17 09:10 AST 85 Units/L (15-37) H 08/04/17 09:10 ALT 112 Units/L (12-78) H 08/04/17 09:10 Alkaline Phosphatase 134 Units/L (46-116) H 08/04/17 09:10 Total Protein 7.5 g/dL (6.4-8.2) 08/04/17 09:10 Albumin 3.5 g/dL (3.4-5.0) 08/04/17 09:10 Globulin 4.0 g/dL (2.5-4.5) 08/04/17 09:10 Albumin/Globulin Ratio 0.9 Ratio (1.1-2.1) L 08/04/17 09:10 - Diagnosis Discharge Problem: COPD exacerbation, Hypotension - Discharge Plan Disposition: ADMITTED INPATIENT Condition: Stable - Follow ups/Referrals Follow ups/Referrals: TING CHAO [Primary Care Provider] - 3 days - Instructions
[2017-08-04] MEDS ORDERED: SOLU-Medrol 125 MG VIAL ONE (09:29)
[2017-08-04] MEDS ORDERED: ROBITUSSIN DM PO ONE (09:37)
[2017-08-04 09:38] LABS: BASOPHILS # (AUTO) 0.1 X10^3/uL (0.0-0.1); BASOPHILS % (AUTO) 0.8 % (0.2-1.0); HEMATOCRIT 40.3 % (36.0-47.0); LYMPHOCYTES # (AUTO) 1.4 X10^3/uL (1.3-2.9); LYMPHOCYTES % (AUTO) 9.8 % (21.0-51.0); MEAN CORPUSCULAR HEMOGLOBIN 30.5 pg (27.0-34.0); MEAN CORPUSCULAR HGB CONC 32.2 g/dL (33.0-35.0); MEAN CORPUSCULAR VOLUME 94.8 fL (80.0-100.0); MEAN PLATELET VOLUME 8.7 fL (7.4-11.0); MONOCYTES % (AUTO) 13.9 % (0.0-13.0); NEUTROPHILS # (AUTO) 10.7 x10^3/uL (2.2-4.8); NEUTROPHILS % (AUTO) 75.5 % (42.0-75.0); PLATELET COUNT 373 X10^3/uL (150.0-450.0); RED BLOOD COUNT 4.25 X10^6/uL (3.5-5.4); RED CELL DISTRIBUTION WIDTH 14.7 % (11.6-16.5); WHITE BLOOD COUNT 14.2 X10^3/uL (3.6-10.0)
[2017-08-04 09:45] LABS: ALANINE AMINOTRANSFERASE 112 Units/L (12-78); ALBUMIN 3.5 g/dL (3.4-5.0); ALKALINE PHOSPHATASE 134 Units/L (46-116); ASPARTATE AMINO TRANSFERASE 85 Units/L (15-37); BLOOD UREA NITROGEN 26 mg/dL (7-18); CALCIUM 8.5 mg/dL (8.5-10.1); CARBON DIOXIDE 33.8 mmol/L (21-32); CHLORIDE 104 mmol/L (98-107); CREATININE 1.04 mg/dL (0.55-1.02); SODIUM 144 mmol/L (136-145); TOTAL PROTEIN 7.5 g/dL (6.4-8.2); eGFR BLACK RACES > 60 (>60); eGFR NON BLACK RACES 57 (>60)
[2017-08-04] MEDS ORDERED: NS 1000 ML 1,000 ML IV SCH (10:00)
[2017-08-04] MEDS ORDERED: ROBITUSSIN DM ONE (10:14)
[2017-08-04] MEDS: DUONEB 0.5 MG/3 MG NEB SCH ×4 (10:54→19:30)
[2017-08-04 12:17] VITALS: BMI 42.4
[2017-08-04] MEDS: SINGULAIR TAB 10 MG PO SCH ×2 (12:28→20:39)
[2017-08-04] MEDS: ROBITUSSIN DM PO SCH ×3 (14:19→20:38)
[2017-08-04] MEDS: SOLU-Medrol 40 MG VIAL IVP SCH ×2 (14:20→22:10)
[2017-08-04] MEDS: NEURONTIN CAP 300 MG PO SCH ×2 (14:20→22:10)
--- NOTE | 2017-08-04 15:55 | RAD ---
History: Shortness of breath Study: Portable AP chest Comparison: Yesterday Findings: The heart size is normal. There is a Port-A-Cath from the right subclavian vein as before. There is limited inspiration of grossly clear lungs. Impression: No definite acute cardiopulmonary disease Reported By:
[2017-08-04] MEDS ORDERED: MORPHINE SULFATE INJ 4 MG ONE (18:28)
[2017-08-04] MEDS: MORPHINE SULFATE INJ 2 MG INJ IVP PRN (18:32)
[2017-08-04] MEDS: PULMICORT NEB TX 0.5 MG NEB SCH (19:30)
[2017-08-04] MEDS: ROCEPHIN 1 GM IV PREMIX 1 GM/50 ML IV.SOLN. IV SCH (20:38)
[2017-08-04] MEDS: ZANTAC PO SCH (20:39)
[2017-08-04] MEDS: XANAX PO PRN (20:39)
[2017-08-04] MEDS: NS 1000 ML 1,000 ML IV SCH ×2 (20:39→20:53)
[2017-08-04] MEDS: REQUIP PO SCH (20:39)
[2017-08-04] MEDS: ELAVIL PO SCH (20:53)
[2017-08-04] MEDS ORDERED: ROCEPHIN VIAL 1 GM 1 GM in NS 50 ML IV + SPIKE MINIBAG* 50 ML IV SCH (21:00)
[2017-08-04] MEDS ORDERED: PATIENT'S HOME MEDICATION (Levocetirizine Dihydrochloride [Levocetirizine Dihydrochloride] PO SCH (21:00)
[2017-08-04] MEDS ORDERED: PATIENT'S HOME MEDICATION (Tiotropium Bromide Monohydrate 1 INH) INH SCH (21:00)
[2017-08-04 21:59] LABS: BILIRUBIN,URINE NEGATIVE (NEGATIVE); BLOOD/HEMOGLOBIN,URINE NEGATIVE (NEGATIVE); GLUCOSE, URINE NEGATIVE (NEGATIVE); KETONES,URINE NEGATIVE (NEGATIVE); LEUKOCYTE ESTERASE ,URINE NEGATIVE (NEGATIVE); NITRITES,URINE NEGATIVE (NEGATIVE); PROTEIN,URINE 1+ (NEGATIVE); UROBILINOGEN,URINE NORMAL (NORMAL)
[2017-08-04 22:11] LABS: APPEARANCE,URINE CLEAR (CLEAR); COLOR,URINE YELLOW (YELLOW); RBC,URINE NEGATIVE /HPF (NEGATIVE); SQUAMOUS EPITHELIAL CELL,UR NEGATIVE /HPF (NEGATIVE)
[2017-08-04 22:12] LABS: BACTERIA,URINE NEGATIVE /HPF (NEGATIVE)
[2017-08-04] MEDS: AMBIEN PO PRN (22:25)
[2017-08-04] MEDS: ZANAFLEX PO PRN (22:25)
[2017-08-04] MEDS: PERCOCET TAB 5/325 MG PO PRN (23:34)
[2017-08-05] MEDS: DUONEB 0.5 MG/3 MG NEB SCH ×6 (00:35→21:16)
[2017-08-05] MEDS: NS 1000 ML 1,000 ML IV SCH ×3 (05:06→20:17)
[2017-08-05] MEDS: SOLU-Medrol 40 MG VIAL IVP SCH ×3 (05:07→22:15)
[2017-08-05] MEDS: NEURONTIN CAP 300 MG PO SCH ×3 (05:07→22:15)
[2017-08-05 05:33] LABS: BASOPHILS % (AUTO) 0 % (0.2-1.0); HEMATOCRIT 36.4 % (36.0-47.0); HEMOGLOBIN 11.8 g/dL (12.0-16.0); LYMPHOCYTES # (AUTO) 0.7 X10^3/uL (1.3-2.9); LYMPHOCYTES % (AUTO) 6.1 % (21.0-51.0); MEAN CORPUSCULAR HEMOGLOBIN 30.8 pg (27.0-34.0); MEAN CORPUSCULAR HGB CONC 32.4 g/dL (33.0-35.0); MEAN CORPUSCULAR VOLUME 95.2 fL (80.0-100.0); MEAN PLATELET VOLUME 8.7 fL (7.4-11.0); MONOCYTES # (AUTO) 0.6 x10^3/uL (0.3-0.8); MONOCYTES % (AUTO) 4.8 % (0.0-13.0); NEUTROPHILS # (AUTO) 10.6 x10^3/uL (2.2-4.8); NEUTROPHILS % (AUTO) 89.1 % (42.0-75.0); PLATELET COUNT 274 X10^3/uL (150.0-450.0); RED BLOOD COUNT 3.82 X10^6/uL (3.5-5.4); RED CELL DISTRIBUTION WIDTH 14.5 % (11.6-16.5); WHITE BLOOD COUNT 11.9 X10^3/uL (3.6-10.0)
[2017-08-05 05:44] LABS: ALANINE AMINOTRANSFERASE 131 Units/L (12-78); ALKALINE PHOSPHATASE 112 Units/L (46-116); ASPARTATE AMINO TRANSFERASE 96 Units/L (15-37); BLOOD UREA NITROGEN 28 mg/dL (7-18); CALCIUM 7.9 mg/dL (8.5-10.1); CARBON DIOXIDE 35.2 mmol/L (21-32); CHLORIDE 103 mmol/L (98-107); COR CA(FOR HYPOALB) 8.7 mg/dL (8.5-10.1); COR NA(FOR HYPERGLY) 142 mmol/L (136-145); CREATININE 1.03 mg/dL (0.55-1.02); SODIUM 141 mmol/L (136-145); TOTAL PROTEIN 6.6 g/dL (6.4-8.2); eGFR BLACK RACES > 60 (>60); eGFR NON BLACK RACES 57 (>60)
[2017-08-05] MEDS ORDERED: FLUTICASONE PROPIONATE SCH (09:00)
[2017-08-05] MEDS ORDERED: DILTIAZEM HCL PO SCH (09:00)
[2017-08-05] MEDS: ALDACTONE TAB 25 MG PO SCH (09:00)
[2017-08-05] MEDS ORDERED: SINGULAIR TAB 10 MG PO SCH (09:00)
[2017-08-05] MEDS ORDERED: SPIRONOLACTONE 25 MG PO SCH (09:00)
[2017-08-05] MEDS: FLONASE NASAL SPRAY ENOSTRIL SCH (09:02)
[2017-08-05] MEDS: CARDIZEM CD 240 MG PO SCH (09:02)
[2017-08-05] MEDS: ROBITUSSIN DM PO SCH ×4 (09:02→20:14)
[2017-08-05] MEDS: ROCEPHIN 1 GM IV PREMIX 1 GM/50 ML IV.SOLN. IV SCH ×2 (09:03→20:17)
[2017-08-05] MEDS: ZANTAC PO SCH ×2 (09:03→20:15)
[2017-08-05] MEDS: PULMICORT NEB TX 0.5 MG NEB SCH ×2 (09:37→21:16)
[2017-08-05] MEDS: TUSSIONEX PENNKINETIC SUSP PO PRN ×2 (12:15→20:21)
[2017-08-05] MEDS: MORPHINE SULFATE INJ 2 MG INJ IVP PRN (13:11)
--- NOTE | 2017-08-05 13:55 | DR.H&P ---
H&P - History & Physical for Day of: H&P Date: 08/04/17 - Chief Complaint Chief Complaint: SOB - Allergies Allergies/Adverse Reactions: Allergies Allergy/AdvReac Type Severity Reaction Status Date / Time ketorolac [From Toradol] Allergy Verified 08/04/17 09:18 nalbuphine [From Nubain] Allergy Verified 08/04/17 09:18 Penicillins Allergy Verified 08/04/17 09:18 Sulfa (Sulfonamide Allergy Verified 08/04/17 09:18 Antibiotics) [SULFA] BETA BLOCKERS Allergy Uncoded 08/04/17 09:18 - History of Present Illness History of Present Illness: The pt is 62 y/o WF who is a primary care pt in my private practice. The pt presented to the ER c/o subjective fevers, cough, congestion and progressive SOB X one week. Pt was seen in the ER one day ago for the same symptoms, but improved with neb tx's and was discharged home. Pt was given multiple neb tx's in the ER with no improvement. CXR revealed no acute infiltrates. Pt was admitted for further w/u due to outpt tx failure. - Past Medical History Past Medical History: Anxiety, Arthritis, Asthma, CHF, COPD, Coronary Artery Disease, Hypertension - Past Surgical History Surgical History: Abdominal Surgery, Appendectomy, Bowel Resection, Cholecystectomy - Family History Family Medical History: Coronary Artery Disease, Hypertension - Social History Does patient currently use any type of tobacco product: No Have you used tobacco products in the last 12 months: No Type of Tobacco Use: Cigarettes Does any household member use tobacco: No Alcohol Use: None Drug Use: None - Review of Systems Constitutional: See HPI Eyes: No Symptoms Reported ENT: No Symptoms Reported Respiratory: See HPI Cardiovascular: No Symptoms Reported Gastrointestinal: No Symptoms Reported Genitourinary: No Symptoms Reported Musculoskeletal: No Symptoms Reported Skin: No Symptoms Reported Neurological: No Symptoms Reported - Physical Exam Vital Signs: Temperature 98.3 F Pulse Rate [Left Brachial] 79 Pulse Rate 84 Respiratory Rate 21 Blood Pressure [Left Arm] 157/72 Blood Pressure [Right Arm] 108/55 Blood Pressure 151/63 O2 Sat by Pulse Oximetry 94 Oriented: Normal Eyes: Normal Ear: Normal Nose: Normal Throat: Normal Respiratory: Rhonchi Throughout, Wheezes Throughout Cardiovascular: Normal : Normal Auscultation: Bowel Sounds: Normal Tenderness: Normal Skin: Normal Musculoskeletal: Normal Psychiatric: Normal Mood Description: Calm Affect: Normal Speech Pattern: Clear - Assessment/Plan (1) Acute respiratory distress Status: Acute Plan: 1. Admit to IMCU. 2. Telemetry. 3. O2 at 2L/min per NC. 4. Alb/ Atrovent JN tx's q 4 hours. 5. Rocephin 1gm IV q day. 6. Pulmicort JN tx's q 12 hours. 7. Solumedrol 80mg IV q 8 hours. 8. Continue home meds (2) Acute bronchitis Status: Acute Plan: As above (3) COPD exacerbation Status: Acute Plan: As above
--- NOTE | 2017-08-05 14:07 | PCM.PROG ---
Progress Note - Progress Note for Day of Date: 08/05/17 - Subjective Subjective: Pt is a 62y/o WF admitted to [facility] on 08/04 due to acute resp distress , acute COPD exacerbation and acute bronchitis. Pt still c/o's SOB with minimal exerbation. Pt states resp sx's improved minimally since admission. - Past Medical Family Social History Past Med/Fam/Surg Hx: No changes since H&P Allergies: Allergies ketorolac [From Toradol] Allergy (Verified 08/04/17 09:18) nalbuphine [From Nubain] Allergy (Verified 08/04/17 09:18) Penicillins Allergy (Verified 08/04/17 09:18) Sulfa (Sulfonamide Antibiotics) [SULFA] Allergy (Verified 08/04/17 09:18) BETA BLOCKERS Allergy (Uncoded 08/04/17 09:18) - Review of Systems ROS: No change since H&P - Vital Signs and I&O's Vital Signs: Temperature 98.3 F Pulse Rate [Left Brachial] 79 Pulse Rate 84 Respiratory Rate 21 Blood Pressure [Left Arm] 157/72 Blood Pressure [Right Arm] 108/55 Blood Pressure 151/63 O2 Sat by Pulse Oximetry 94 Intake and Output: Intake & Output 08/03/17 08/04/17 08/05/17 08/06/17 11:59 11:59 11:59 11:59 Intake Total 535 Output Total 250 Balance 285 - Physical Exam Oriented: Normal Eyes: Normal Ear: Normal Nose: Normal Throat: Normal Respiratory: Right, Left, Wheezes, Rhonchi Cardiovascular: Normal : Normal Auscultation: Bowel Sounds: Normal Tenderness: Normal Skin: Normal Musculoskeletal: Normal Psychiatric: Normal Mood Description: Calm Affect: Normal Speech Pattern: Clear - Laboratory and Diagnostics Result Diagrams: 08/05/17 04:50 08/05/17 04:50 Labs: Laboratory WBC 11.9 X10^3/uL (3.6-10.0) H 08/05/17 04:50 RBC 3.82 X10^6/uL (3.5-5.4) 08/05/17 04:50 Hgb 11.8 g/dL (12.0-16.0) L 08/05/17 04:50 Hct 36.4 % (36.0-47.0) 08/05/17 04:50 MCV 95.2 fL (80.0-100.0) 08/05/17 04:50 MCH 30.8 pg (27.0-34.0) 08/05/17 04:50 MCHC 32.4 g/dL (33.0-35.0) L 08/05/17 04:50 RDW 14.5 % (11.6-16.5) 08/05/17 04:50 Plt Count 274 X10^3/uL (150.0-450.0) 08/05/17 04:50 MPV 8.7 fL (7.4-11.0) 08/05/17 04:50 Neut % 89.1 % (42.0-75.0) H 08/05/17 04:50 Lymph % 6.1 % (21.0-51.0) L 08/05/17 04:50 [place] % 4.8 % (0.0-13.0) 08/05/17 04:50 Eos % 0.0 % (0.9-2.9) L 08/05/17 04:50 Baso % 0 % (0.2-1.0) L 08/05/17 04:50 Neut # 10.6 x10^3/uL (2.2-4.8) H 08/05/17 04:50 Lymph # 0.7 X10^3/uL (1.3-2.9) L 08/05/17 04:50 [place] # 0.6 x10^3/uL (0.3-0.8) 08/05/17 04:50 Eos # 0.0 x10^3/uL (0.0-0.2) 08/05/17 04:50 Baso # 0.0 X10^3/uL (0.0-0.1) 08/05/17 04:50 Absolute Nucleated RBC 0.1 /100WBC 08/05/17 04:50 Sodium 141 mmol/L (136-145) 08/05/17 04:50 Corrected Sodium 142 mmol/L (136-145) 08/05/17 04:50 Potassium 4.5 mmol/L (3.5-5.1) 08/05/17 04:50 Chloride 103 mmol/L (98-107) 08/05/17 04:50 Carbon Dioxide 35.2 mmol/L (21-32) H 08/05/17 04:50 BUN 28 mg/dL (7-18) H 08/05/17 04:50 Creatinine 1.03 mg/dL (0.55-1.02) H 08/05/17 04:50 Est GFR (MDRD) Af Amer > 60 (>60) 08/05/17 04:50 Est GFR (MDRD) Non-Af 57 (>60) L 08/05/17 04:50 Glucose 148 mg/dL (65-99) H 08/05/17 04:50 Calcium 7.9 mg/dL (8.5-10.1) L 08/05/17 04:50 Corrected Calcium 8.7 mg/dL (8.5-10.1) 08/05/17 04:50 Total Bilirubin 0.20 mg/dL (0.2-1.0) 08/05/17 04:50 AST 96 Units/L (15-37) H 08/05/17 04:50 ALT 131 Units/L (12-78) H 08/05/17 04:50 Alkaline Phosphatase 112 Units/L (46-116) 08/05/17 04:50 Total Protein 6.6 g/dL (6.4-8.2) 08/05/17 04:50 Albumin 3.0 g/dL (3.4-5.0) L 08/05/17 04:50 Globulin 3.6 g/dL (2.5-4.5) 08/05/17 04:50 Albumin/Globulin Ratio 0.8 Ratio (1.1-2.1) L 08/05/17 04:50 Specimen Type Catherized urine 08/04/17 21:51 Urine Color Yellow (YELLOW) 08/04/17 21:51 Urine Appearance Clear (CLEAR) 08/04/17 21:51 Urine pH 6.0 (5.0 - 8.0) 08/04/17 21:51 Ur Specific [place] 1.015 (1.000-1.030) 08/04/17 21:51 Urine Protein 1+ (NEGATIVE) 08/04/17 21:51 Urine Glucose (UA) Negative (NEGATIVE) 08/04/17 21:51 Urine Ketones Negative (NEGATIVE) 08/04/17 21:51 Urine Occult Blood Negative (NEGATIVE) 08/04/17 21:51 Urine Nitrite Negative (NEGATIVE) 08/04/17 21:51 Urine Bilirubin Negative (NEGATIVE) 08/04/17 21:51 Urine Urobilinogen Normal (NORMAL) 08/04/17 21:51 Ur Leukocyte Esterase Negative (NEGATIVE) 08/04/17 21:51 Urine RBC Negative /HPF (NEGATIVE) 08/04/17 21:51 Urine WBC Rare /HPF (NEGATIVE) 08/04/17 21:51 Ur Squamous Epith Cells Negative /HPF (NEGATIVE) 08/04/17 21:51 Urine Bacteria Negative /HPF (NEGATIVE) 08/04/17 21:51 Ur Culture Indicated? No/not indicated 08/04/17 21:51 Influenza Type A (PCR) Negative (NEGATIVE) 08/04/17 14:17 Influenza Type B (PCR) Negative (NEGATIVE) 08/04/17 14:17 - Plan (1) Acute respiratory distress Status: Acute Plan: 1. Continue to monitor in the IMCU. 2. Telemetry. 3. O2 at 2L/min per NC. 4. Alb/Atrovent JN tx's q 4 hours. 5. Rocephin 1gm IV q day. 6. Pulmicort JN tx's q 12 hours. 7. Solumedrol 80mg IV q 8 hours. 8. Start Brovana JN's tx q 12 hours. 9. Continue all other current meds. (2) Acute bronchitis Status: Acute Plan: As above (3) COPD exacerbation Status: Acute Plan: As above
[2017-08-05] MEDS: ELAVIL PO SCH (20:14)
[2017-08-05] MEDS: REQUIP PO SCH (20:15)
[2017-08-05] MEDS: PERCOCET TAB 5/325 MG PO PRN (20:15)
[2017-08-05] MEDS: XANAX PO PRN (20:15)
[2017-08-05] MEDS: SINGULAIR TAB 10 MG PO SCH (20:15)
[2017-08-05] MEDS: AMBIEN PO PRN (20:15)
[2017-08-05] MEDS ORDERED: BROVANA IN SCH (21:00)
[2017-08-05] MEDS: BROVANA IN SCH (21:16)
[2017-08-06] MEDS: DUONEB 0.5 MG/3 MG NEB SCH ×6 (01:10→22:01)
[2017-08-06] MEDS: NS 1000 ML 1,000 ML IV SCH ×4 (05:22→21:00)
[2017-08-06] MEDS: SOLU-Medrol 40 MG VIAL IVP SCH ×3 (05:23→21:01)
[2017-08-06] MEDS: NEURONTIN CAP 300 MG PO SCH ×3 (05:23→21:04)
[2017-08-06] MEDS: BROVANA IN SCH ×2 (08:01→22:02)
[2017-08-06] MEDS: PULMICORT NEB TX 0.5 MG NEB SCH ×3 (08:01→22:13)
[2017-08-06] MEDS: ALDACTONE TAB 25 MG PO SCH (08:03)
[2017-08-06] MEDS: CARDIZEM CD 240 MG PO SCH (08:03)
[2017-08-06] MEDS: ZANTAC PO SCH ×2 (08:03→21:05)
[2017-08-06] MEDS: ROBITUSSIN DM PO SCH ×4 (08:03→21:05)
[2017-08-06] MEDS: ROCEPHIN 1 GM IV PREMIX 1 GM/50 ML IV.SOLN. IV SCH ×2 (08:03→21:01)
[2017-08-06] MEDS: ZANAFLEX PO PRN (08:04)
[2017-08-06] MEDS: XANAX PO PRN ×2 (08:04→21:04)
[2017-08-06] MEDS: TUSSIONEX PENNKINETIC SUSP PO PRN ×2 (08:04→21:01)
[2017-08-06] MEDS: FLONASE NASAL SPRAY ENOSTRIL SCH (08:04)
[2017-08-06] MEDS ORDERED: LASIX IVP ONE ×2 (09:15→09:18)
[2017-08-06] MEDS: PERCOCET TAB 5/325 MG PO PRN ×2 (15:52→21:04)
[2017-08-06] MEDS: SINGULAIR TAB 10 MG PO SCH (21:04)
[2017-08-06] MEDS: ELAVIL PO SCH (21:04)
[2017-08-06] MEDS: AMBIEN PO PRN (21:04)
[2017-08-06] MEDS: REQUIP PO SCH (21:04)
[2017-08-07] MEDS: DUONEB 0.5 MG/3 MG NEB SCH ×6 (01:28→20:40)
[2017-08-07 05:02] LABS: BASOPHILS % (AUTO) 0.1 % (0.2-1.0); HEMOGLOBIN 12.5 g/dL (12.0-16.0); LYMPHOCYTES # (AUTO) 0.7 X10^3/uL (1.3-2.9); MEAN CORPUSCULAR HEMOGLOBIN 30.6 pg (27.0-34.0); MEAN CORPUSCULAR HGB CONC 32.8 g/dL (33.0-35.0); MEAN CORPUSCULAR VOLUME 93.5 fL (80.0-100.0); MEAN PLATELET VOLUME 8.9 fL (7.4-11.0); MONOCYTES # (AUTO) 0.7 x10^3/uL (0.3-0.8); MONOCYTES % (AUTO) 4.6 % (0.0-13.0); NEUTROPHILS # (AUTO) 13.4 x10^3/uL (2.2-4.8); NEUTROPHILS % (AUTO) 90.3 % (42.0-75.0); PLATELET COUNT 282 X10^3/uL (150.0-450.0); RED BLOOD COUNT 4.06 X10^6/uL (3.5-5.4); RED CELL DISTRIBUTION WIDTH 14.2 % (11.6-16.5); WHITE BLOOD COUNT 14.9 X10^3/uL (3.6-10.0)
[2017-08-07 05:28] LABS: ALANINE AMINOTRANSFERASE 254 Units/L (12-78); ALBUMIN 2.7 g/dL (3.4-5.0); ALKALINE PHOSPHATASE 124 Units/L (46-116); ASPARTATE AMINO TRANSFERASE 115 Units/L (15-37); BLOOD UREA NITROGEN 29 mg/dL (7-18); CARBON DIOXIDE 34.5 mmol/L (21-32); CHLORIDE 100 mmol/L (98-107); COR NA(FOR HYPERGLY) 144 mmol/L (136-145); CREATININE 1.03 mg/dL (0.55-1.02); SODIUM 141 mmol/L (136-145); TOTAL PROTEIN 6.2 g/dL (6.4-8.2); eGFR BLACK RACES > 60 (>60); eGFR NON BLACK RACES 57 (>60)
[2017-08-07 05:34] LABS: BAND NEUTROPHILS % 1 % (0-10); PLATELET MORPHOLOGY COMMENT NORMAL (NORMAL)
[2017-08-07] MEDS: NS 1000 ML 1,000 ML IV SCH ×3 (05:53→20:45)
[2017-08-07] MEDS: NEURONTIN CAP 300 MG PO SCH ×3 (05:54→21:30)
[2017-08-07] MEDS: SOLU-Medrol 40 MG VIAL IVP SCH (05:54)
--- NOTE | 2017-08-07 07:18 | RAD ---
Examination: Portable AP chest History: SOB, bronchitis, asthma Comparison reference 08/04/2017 Findings: Continued upper normal heart size, accentuated by patient rotation. Central pulmonary vascu lar congestion with stable position of right subclavian injection port. No definite consolidation or pneumothorax although the retrocardiac left lower lung is obscured. No definite pneumothorax. Impression: Stable cardiac prominence with pulmonary congestion. Follow-up suggested to exclude devel oping abnormality in the partly obscured left lower lung. Reported By:
[2017-08-07] MEDS: BROVANA IN SCH ×2 (08:36→20:40)
[2017-08-07] MEDS: PULMICORT NEB TX 0.5 MG NEB SCH ×2 (08:36→20:40)
[2017-08-07] MEDS: ALDACTONE TAB 25 MG PO SCH (09:35)
[2017-08-07] MEDS: FLONASE NASAL SPRAY ENOSTRIL SCH (09:36)
[2017-08-07] MEDS: ZANTAC PO SCH ×2 (09:36→20:45)
[2017-08-07] MEDS: ROBITUSSIN DM PO SCH ×4 (09:36→20:44)
[2017-08-07] MEDS: CARDIZEM CD 240 MG PO SCH (09:36)
[2017-08-07] MEDS: PERCOCET TAB 5/325 MG PO PRN ×3 (09:36→20:44)
[2017-08-07] MEDS: ROCEPHIN 1 GM IV PREMIX 1 GM/50 ML IV.SOLN. IV SCH ×2 (09:36→20:42)
[2017-08-07] MEDS: TUSSIONEX PENNKINETIC SUSP PO PRN ×2 (09:37→20:44)
[2017-08-07] MEDS: XANAX PO PRN ×2 (09:37→20:45)
[2017-08-07 10:26] LABS: ABG BASE EXCESS 12.1 mmol/L (-2.0-2.0)
[2017-08-07 10:27] LABS: ABG HCO3 38.2 mmol/L (22-26)
[2017-08-07] MEDS: MORPHINE SULFATE INJ 2 MG INJ IVP PRN ×2 (14:03→23:26)
[2017-08-07] MEDS: AMBIEN PO PRN (20:45)
[2017-08-07] MEDS: SINGULAIR TAB 10 MG PO SCH (20:45)
[2017-08-07] MEDS: REQUIP PO SCH (20:45)
[2017-08-07] MEDS: ELAVIL PO SCH (20:45)
[2017-08-07] MEDS: ZANAFLEX PO PRN (23:27)
[2017-08-08] MEDS: DUONEB 0.5 MG/3 MG NEB SCH ×6 (01:15→21:08)
[2017-08-08 04:39] LABS: BASOPHILS % (AUTO) 0.2 % (0.2-1.0); HEMATOCRIT 38.4 % (36.0-47.0); HEMOGLOBIN 12.4 g/dL (12.0-16.0); LYMPHOCYTES % (AUTO) 7.2 % (21.0-51.0); MEAN CORPUSCULAR HGB CONC 32.3 g/dL (33.0-35.0); MEAN CORPUSCULAR VOLUME 92.9 fL (80.0-100.0); MEAN PLATELET VOLUME 8.5 fL (7.4-11.0); MONOCYTES # (AUTO) 1.1 x10^3/uL (0.3-0.8); MONOCYTES % (AUTO) 7.9 % (0.0-13.0); NEUTROPHILS # (AUTO) 11.8 x10^3/uL (2.2-4.8); NEUTROPHILS % (AUTO) 84.7 % (42.0-75.0); PLATELET COUNT 270 X10^3/uL (150.0-450.0); RED BLOOD COUNT 4.13 X10^6/uL (3.5-5.4); RED CELL DISTRIBUTION WIDTH 14.1 % (11.6-16.5)
[2017-08-08 05:04] LABS: ALANINE AMINOTRANSFERASE 251 Units/L (12-78); ALBUMIN 2.7 g/dL (3.4-5.0); ALKALINE PHOSPHATASE 107 Units/L (46-116); ASPARTATE AMINO TRANSFERASE 88 Units/L (15-37); BLOOD UREA NITROGEN 29 mg/dL (7-18); CALCIUM 7.7 mg/dL (8.5-10.1); CARBON DIOXIDE 35.3 mmol/L (21-32); CHLORIDE 102 mmol/L (98-107); COR CA(FOR HYPOALB) 8.7 mg/dL (8.5-10.1); COR NA(FOR HYPERGLY) 142 mmol/L (136-145); CREATININE 0.87 mg/dL (0.55-1.02); SODIUM 141 mmol/L (136-145); eGFR BLACK RACES > 60 (>60); eGFR NON BLACK RACES > 60 (>60)
[2017-08-08] MEDS: NS 1000 ML 1,000 ML IV SCH ×2 (05:23→21:56)
[2017-08-08] MEDS: NEURONTIN CAP 300 MG PO SCH ×3 (06:14→21:37)
--- NOTE | 2017-08-08 07:24 | RAD ---
HISTORY: Shortness of breath Study: Chest AP portable Comparison: 08/07/2017 Findings: There is a poor present on the right. The heart is upper limits normal in size. No congestive heart f ailure is noted. No acute alveolar infiltrates or pleural effusions are identified. The bony thorax i s unremarkable. IMPRESSION: Lungs clear Reported By:
[2017-08-08] MEDS: PERCOCET TAB 5/325 MG PO PRN (08:01)
[2017-08-08] MEDS: ROBITUSSIN DM PO SCH ×4 (08:01→21:36)
[2017-08-08] MEDS: ZANTAC PO SCH ×2 (08:02→21:37)
[2017-08-08] MEDS: FLONASE NASAL SPRAY ENOSTRIL SCH (08:02)
[2017-08-08] MEDS: ALDACTONE TAB 25 MG PO SCH (08:02)
[2017-08-08] MEDS: CARDIZEM CD 240 MG PO SCH (08:02)
[2017-08-08] MEDS: XANAX PO PRN ×2 (08:02→21:37)
[2017-08-08] MEDS: TUSSIONEX PENNKINETIC SUSP PO PRN ×2 (08:03→21:35)
[2017-08-08] MEDS: ROCEPHIN 1 GM IV PREMIX 1 GM/50 ML IV.SOLN. IV SCH ×2 (08:03→21:34)
[2017-08-08] MEDS ORDERED: SOLU-Medrol 40 MG VIAL ONE (09:15)
[2017-08-08] MEDS ORDERED: LASIX IVP ONE (09:16)
[2017-08-08] MEDS: BROVANA IN SCH ×2 (09:30→21:08)
[2017-08-08] MEDS: PULMICORT NEB TX 0.5 MG NEB SCH ×2 (09:30→21:08)
[2017-08-08] MEDS ORDERED: SOLU-Medrol 40 MG VIAL IVP ONE (09:35)
[2017-08-08] MEDS: LASIX IVP SCH ×2 (09:38→21:35)
[2017-08-08] MEDS: MORPHINE SULFATE INJ 2 MG INJ IVP PRN ×4 (09:38→21:34)
[2017-08-08 11:02] LABS: ABG BASE EXCESS 13.5 mmol/L (-2.0-2.0)
[2017-08-08 11:03] LABS: ABG ALLEN TEST POS; ABG HCO3 40.1 mmol/L (22-26)
[2017-08-08] MEDS: SOLU-Medrol 40 MG VIAL IVP SCH ×2 (13:02→21:36)
[2017-08-08] MEDS ORDERED: SALINE 3% 15 ML NEB TX ONE (15:40)
[2017-08-08] MEDS ORDERED: SALINE 3% 15 ML NEB TX NEB ONE (15:40)
[2017-08-08] MEDS: ELAVIL PO SCH (21:37)
[2017-08-08] MEDS: SINGULAIR TAB 10 MG PO SCH (21:37)
[2017-08-08] MEDS: AMBIEN PO PRN (21:37)
[2017-08-08] MEDS: REQUIP PO SCH (21:38)
[2017-08-09] MEDS: DUONEB 0.5 MG/3 MG NEB SCH ×6 (01:13→21:34)
[2017-08-09] MEDS: ZANAFLEX PO PRN ×3 (01:37→17:25)
[2017-08-09] MEDS: PERCOCET TAB 5/325 MG PO PRN ×3 (01:37→17:25)
[2017-08-09] MEDS: NS 1000 ML 1,000 ML IV SCH (04:28)
[2017-08-09 05:01] LABS: ABG BASE EXCESS 19.1 mmol/L (-2.0-2.0)
[2017-08-09 05:02] LABS: ABG HCO3 46.9 mmol/L (22-26)
[2017-08-09 05:03] LABS: ABG ALLEN TEST POS
[2017-08-09] MEDS: NEURONTIN CAP 300 MG PO SCH ×3 (05:34→21:27)
[2017-08-09] MEDS: SOLU-Medrol 40 MG VIAL IVP SCH ×3 (05:34→21:31)
[2017-08-09] MEDS ORDERED: MORPHINE SULFATE INJ 2 MG INJ ONE (06:13)
[2017-08-09 06:35] LABS: BASOPHILS % (AUTO) 0.1 % (0.2-1.0); HEMATOCRIT 39.9 % (36.0-47.0); HEMOGLOBIN 13.2 g/dL (12.0-16.0); LYMPHOCYTES # (AUTO) 0.8 X10^3/uL (1.3-2.9); LYMPHOCYTES % (AUTO) 5.5 % (21.0-51.0); MEAN CORPUSCULAR HEMOGLOBIN 30.4 pg (27.0-34.0); MEAN CORPUSCULAR VOLUME 92.2 fL (80.0-100.0); MEAN PLATELET VOLUME 8.8 fL (7.4-11.0); MONOCYTES # (AUTO) 0.5 x10^3/uL (0.3-0.8); MONOCYTES % (AUTO) 3.6 % (0.0-13.0); NEUTROPHILS # (AUTO) 13.3 x10^3/uL (2.2-4.8); NEUTROPHILS % (AUTO) 90.8 % (42.0-75.0); PLATELET COUNT 273 X10^3/uL (150.0-450.0); RED BLOOD COUNT 4.33 X10^6/uL (3.5-5.4); RED CELL DISTRIBUTION WIDTH 13.9 % (11.6-16.5); WHITE BLOOD COUNT 14.6 X10^3/uL (3.6-10.0)
[2017-08-09 06:40] LABS: ALANINE AMINOTRANSFERASE 232 Units/L (12-78); ALBUMIN 2.9 g/dL (3.4-5.0); ALKALINE PHOSPHATASE 110 Units/L (46-116); ASPARTATE AMINO TRANSFERASE 49 Units/L (15-37); BLOOD UREA NITROGEN 33 mg/dL (7-18); CALCIUM 7.8 mg/dL (8.5-10.1); CHLORIDE 96 mmol/L (98-107); COR CA(FOR HYPOALB) 8.7 mg/dL (8.5-10.1); COR NA(FOR HYPERGLY) 141 mmol/L (136-145); CREATININE 0.99 mg/dL (0.55-1.02); SODIUM 139 mmol/L (136-145); TOTAL PROTEIN 6.5 g/dL (6.4-8.2); eGFR BLACK RACES > 60 (>60); eGFR NON BLACK RACES > 60 (>60)
[2017-08-09 06:47] LABS: PLATELET MORPHOLOGY COMMENT NORMAL (NORMAL)
[2017-08-09] MEDS: MORPHINE SULFATE INJ 2 MG INJ IVP PRN (06:49)
--- NOTE | 2017-08-09 07:09 | RAD ---
Examination AP chest History: SOB Comparison reference 08/08/2017 Findings: Continued normal heart size with essentially clear lungs. Prominent central vascularity is attributed to nonstandard technical factors. Stable position of right subclavian injection port. Impression: No acute process identified. Reported By:
[2017-08-09] MEDS: CARDIZEM CD 240 MG PO SCH (08:54)
[2017-08-09] MEDS: ZANTAC PO SCH ×2 (08:54→21:28)
[2017-08-09] MEDS: ROCEPHIN 1 GM IV PREMIX 1 GM/50 ML IV.SOLN. IV SCH (08:54)
[2017-08-09] MEDS: ALDACTONE TAB 25 MG PO SCH (08:54)
[2017-08-09] MEDS: ROBITUSSIN DM PO SCH ×4 (08:55→21:27)
[2017-08-09] MEDS: FLONASE NASAL SPRAY ENOSTRIL SCH (08:59)
[2017-08-09] MEDS: BROVANA IN SCH ×2 (09:30→21:34)
[2017-08-09] MEDS: PULMICORT NEB TX 0.5 MG NEB SCH ×2 (09:30→21:34)
[2017-08-09] MEDS: MORPHINE SULFATE INJ 4 MG IVP PRN ×3 (10:23→21:30)
[2017-08-09] MEDS: XANAX PO PRN (10:23)
[2017-08-09] MEDS: TUSSIONEX PENNKINETIC SUSP PO PRN (14:41)
[2017-08-09] MEDS: XANAX PO SCH ×2 (14:41→21:28)
[2017-08-09] MEDS: ELAVIL PO SCH (21:28)
[2017-08-09] MEDS: SINGULAIR TAB 10 MG PO SCH (21:28)
[2017-08-09] MEDS: REQUIP PO SCH (21:29)
[2017-08-09] MEDS: AMBIEN PO PRN (21:29)
[2017-08-09] MEDS: COLACE CAP 100 MG PO PRN (21:29)
[2017-08-10] MEDS: DUONEB 0.5 MG/3 MG NEB SCH ×6 (01:18→21:20)
[2017-08-10] MEDS: SOLU-Medrol 40 MG VIAL IVP SCH (05:16)
[2017-08-10] MEDS: XANAX PO SCH ×3 (05:16→22:51)
[2017-08-10] MEDS: PERCOCET TAB 5/325 MG PO PRN (05:17)
[2017-08-10] MEDS: NS 1000 ML 1,000 ML IV SCH ×5 (05:18→13:18)
[2017-08-10] MEDS: NEURONTIN CAP 300 MG PO SCH ×3 (05:18→22:50)
--- NOTE | 2017-08-10 05:40 | RAD ---
Chest, AP portable Indication: Shortness of breath Comparison: 08/09/2017 Findings: There is stable cardiac size and positioning of the right subclavian approach Port-A-Cath. The lungs are essentially clear without dense infiltrates or large effusion. Impression: No significant change from prior. Reported By:
[2017-08-10 06:02] LABS: BASOPHILS # (AUTO) 0.1 X10^3/uL (0.0-0.1); BASOPHILS % (AUTO) 0.4 % (0.2-1.0); HEMATOCRIT 38.2 % (36.0-47.0); HEMOGLOBIN 12.7 g/dL (12.0-16.0); LYMPHOCYTES # (AUTO) 0.5 X10^3/uL (1.3-2.9); MEAN CORPUSCULAR HEMOGLOBIN 30.6 pg (27.0-34.0); MEAN CORPUSCULAR HGB CONC 33.2 g/dL (33.0-35.0); MEAN CORPUSCULAR VOLUME 92.2 fL (80.0-100.0); MEAN PLATELET VOLUME 9.1 fL (7.4-11.0); MONOCYTES # (AUTO) 0.6 x10^3/uL (0.3-0.8); MONOCYTES % (AUTO) 3.7 % (0.0-13.0); NEUTROPHILS # (AUTO) 14.7 x10^3/uL (2.2-4.8); NEUTROPHILS % (AUTO) 92.9 % (42.0-75.0); PLATELET COUNT 244 X10^3/uL (150.0-450.0); RED BLOOD COUNT 4.15 X10^6/uL (3.5-5.4); RED CELL DISTRIBUTION WIDTH 14.1 % (11.6-16.5); WHITE BLOOD COUNT 15.8 X10^3/uL (3.6-10.0)
[2017-08-10 06:29] LABS: BLOOD UREA NITROGEN 27 mg/dL (7-18); COR NA(FOR HYPERGLY) 139 mmol/L (136-145); SODIUM 137 mmol/L (136-145); TOTAL PROTEIN 6.1 g/dL (6.4-8.2); eGFR BLACK RACES > 60 (>60); eGFR NON BLACK RACES > 60 (>60)
[2017-08-10 07:08] LABS: ALANINE AMINOTRANSFERASE 180 Units/L (12-78); ALBUMIN 2.9 g/dL (3.4-5.0); ALKALINE PHOSPHATASE 109 Units/L (46-116); ASPARTATE AMINO TRANSFERASE 37 Units/L (15-37); CALCIUM 7.9 mg/dL (8.5-10.1); CARBON DIOXIDE 35.6 mmol/L (21-32); CHLORIDE 97 mmol/L (98-107); COR CA(FOR HYPOALB) 8.8 mg/dL (8.5-10.1); CREATININE 0.92 mg/dL (0.55-1.02)
[2017-08-10 07:09] LABS: PLATELET MORPHOLOGY COMMENT NORMAL (NORMAL)
[2017-08-10] MEDS ORDERED: ROCEPHIN 1 GM IV PREMIX 1 GM/50 ML IV.SOLN. IV SCH (09:00)
[2017-08-10] MEDS: BROVANA IN SCH ×2 (09:36→21:20)
[2017-08-10] MEDS: PULMICORT NEB TX 0.5 MG NEB SCH ×2 (09:36→21:20)
[2017-08-10] MEDS: ALDACTONE TAB 25 MG PO SCH (10:08)
[2017-08-10] MEDS: ROBITUSSIN DM PO SCH ×4 (10:08→22:50)
[2017-08-10] MEDS: FLONASE NASAL SPRAY ENOSTRIL SCH (10:09)
[2017-08-10] MEDS: CARDIZEM CD 240 MG PO SCH (10:09)
[2017-08-10] MEDS: ZANTAC PO SCH ×2 (10:09→22:50)
[2017-08-10] MEDS: MORPHINE SULFATE INJ 4 MG IVP PRN ×2 (10:19→22:51)
[2017-08-10] MEDS ORDERED: LASIX IVP ONE ×2 (12:37→15:05)
[2017-08-10] MEDS: MAALOX or MYLANTA PO PRN ×2 (16:45→22:57)
[2017-08-10] MEDS: TUSSIONEX PENNKINETIC SUSP PO PRN (17:07)
[2017-08-10] MEDS: REQUIP PO SCH (22:49)
[2017-08-10] MEDS: ZANAFLEX PO PRN (22:50)
[2017-08-10] MEDS: SINGULAIR TAB 10 MG PO SCH (22:51)
[2017-08-10] MEDS: ELAVIL PO SCH (22:51)
[2017-08-10] MEDS: AMBIEN PO PRN (22:57)
[2017-08-11] MEDS: ZOFRAN INJ 4 MG VIAL IVP PRN ×3 (00:08→17:51)
[2017-08-11 00:16] LABS: CKMB % 2.1 % (<4); CREATINE KINASE 47 Units/L (26-192); CREATINE KINASE MB < 1.0 ng/mL (0-4.0); TROPONIN I < 0.02 ng/mL (0-1.5)
[2017-08-11] MEDS: DUONEB 0.5 MG/3 MG NEB SCH ×6 (01:11→22:24)
[2017-08-11] MEDS: PERCOCET TAB 5/325 MG PO PRN ×3 (01:18→21:33)
[2017-08-11] MEDS: NEURONTIN CAP 300 MG PO SCH ×3 (05:25→21:29)
[2017-08-11] MEDS: XANAX PO SCH ×3 (05:25→21:30)
[2017-08-11 06:03] LABS: BASOPHILS % (AUTO) 0.2 % (0.2-1.0); HEMATOCRIT 37.9 % (36.0-47.0); HEMOGLOBIN 12.4 g/dL (12.0-16.0); LYMPHOCYTES # (AUTO) 1.5 X10^3/uL (1.3-2.9); LYMPHOCYTES % (AUTO) 9.2 % (21.0-51.0); MEAN CORPUSCULAR HEMOGLOBIN 30.3 pg (27.0-34.0); MEAN CORPUSCULAR HGB CONC 32.8 g/dL (33.0-35.0); MEAN CORPUSCULAR VOLUME 92.2 fL (80.0-100.0); MEAN PLATELET VOLUME 8.6 fL (7.4-11.0); MONOCYTES # (AUTO) 1.2 x10^3/uL (0.3-0.8); MONOCYTES % (AUTO) 7.4 % (0.0-13.0); NEUTROPHILS # (AUTO) 13.9 x10^3/uL (2.2-4.8); NEUTROPHILS % (AUTO) 83.2 % (42.0-75.0); PLATELET COUNT 237 X10^3/uL (150.0-450.0); RED BLOOD COUNT 4.11 X10^6/uL (3.5-5.4); WHITE BLOOD COUNT 16.7 X10^3/uL (3.6-10.0)
[2017-08-11 06:23] LABS: ALANINE AMINOTRANSFERASE 146 Units/L (12-78); ALBUMIN 2.6 g/dL (3.4-5.0); ALKALINE PHOSPHATASE 96 Units/L (46-116); ASPARTATE AMINO TRANSFERASE 41 Units/L (15-37); BLOOD UREA NITROGEN 28 mg/dL (7-18); CALCIUM 7.6 mg/dL (8.5-10.1); CARBON DIOXIDE 37.8 mmol/L (21-32); CHLORIDE 99 mmol/L (98-107); COR CA(FOR HYPOALB) 8.7 mg/dL (8.5-10.1); COR NA(FOR HYPERGLY) 142 mmol/L (136-145); CREATININE 0.91 mg/dL (0.55-1.02); SODIUM 142 mmol/L (136-145); TOTAL PROTEIN 5.4 g/dL (6.4-8.2); eGFR BLACK RACES > 60 (>60); eGFR NON BLACK RACES > 60 (>60)
[2017-08-11 06:45] LABS: PLATELET MORPHOLOGY COMMENT NORMAL (NORMAL)
[2017-08-11] MEDS ORDERED: POTASSIUM CHLORIDE LIQ 20 MEQ UDC PO PRN (07:47)
[2017-08-11] MEDS ORDERED: K-RIDER 10 MEQ/NS 100 ML 10 MEQ/100 ML BAG IV PRN (07:47)
[2017-08-11] MEDS ORDERED: MAGNESIUM SULFATE 1 GM/100 mL PREMIX 1 GM/100 ML BAG IV PRN (07:47)
[2017-08-11] MEDS ORDERED: POTASSIUM CHL 40 MEQ/NS 0.45% 500 ML IV PRN (07:47)
[2017-08-11] MEDS ORDERED: POTASSIUM CHL 60 MEQ/NS 0.45% 500 ML IV PRN (07:47)
[2017-08-11] MEDS ORDERED: K-LYTE EFFERVESCENT PO PRN (07:47)
[2017-08-11] MEDS ORDERED: MAG-OX TAB PO PRN (07:47)
--- NOTE | 2017-08-11 07:57 | RAD ---
Examination: Portable AP semi-upright chest History: COPD Comparison reference 08/10/2017 Findings: Continued normal heart size with no evidence for developing consolidation, pleural fluid or pneumothorax. Stable position of right subclavian injection port. Impression: No interval change or acute abnormality demonstrated. Reported By:
[2017-08-11] MEDS: PULMICORT NEB TX 0.5 MG NEB SCH ×2 (08:49→22:24)
[2017-08-11] MEDS: BROVANA IN SCH ×2 (08:49→22:25)
[2017-08-11] MEDS: ZANTAC PO SCH ×2 (09:47→21:31)
[2017-08-11] MEDS: ROBITUSSIN DM PO SCH ×4 (09:47→21:31)
[2017-08-11] MEDS: ALDACTONE TAB 25 MG PO SCH (09:47)
[2017-08-11] MEDS: ROCEPHIN VIAL 1 GM 1 GM in NS 100 ML IV + SPIKE MINIBAG* 100 ML IV SCH (09:48)
[2017-08-11] MEDS: CARDIZEM CD 240 MG PO SCH (09:48)
[2017-08-11] MEDS: FLONASE NASAL SPRAY ENOSTRIL SCH (09:51)
[2017-08-11] MEDS: NS 1000 ML 1,000 ML IV SCH (14:25)
[2017-08-11] MEDS: PHENERGAN INJ 25 MG IVP PRN ×2 (16:44→23:01)
[2017-08-11] MEDS: SINGULAIR TAB 10 MG PO SCH (21:28)
[2017-08-11] MEDS: ELAVIL PO SCH (21:29)
[2017-08-11] MEDS: REQUIP PO SCH (21:29)
[2017-08-11] MEDS: AMBIEN PO PRN ×2 (21:30→21:32)
[2017-08-11] MEDS: ZANAFLEX PO PRN (23:01)
[2017-08-12] MEDS: DUONEB 0.5 MG/3 MG NEB SCH ×6 (02:22→22:08)
[2017-08-12 04:23] LABS: ABG HCO3 45.8 mmol/L (22-26)
[2017-08-12 04:24] LABS: ABG ALLEN TEST POS
[2017-08-12] MEDS: XANAX PO SCH ×3 (05:07→21:48)
[2017-08-12] MEDS: NEURONTIN CAP 300 MG PO SCH ×3 (05:07→21:48)
[2017-08-12 06:18] LABS: BASOPHILS % (AUTO) 0.2 % (0.2-1.0); EOSINOPHILS # (AUTO) 0.2 x10^3/uL (0.0-0.2); EOSINOPHILS % (AUTO) 1.5 % (0.9-2.9); HEMATOCRIT 39.1 % (36.0-47.0); HEMOGLOBIN 12.6 g/dL (12.0-16.0); LYMPHOCYTES # (AUTO) 2.1 X10^3/uL (1.3-2.9); MEAN CORPUSCULAR HEMOGLOBIN 30.1 pg (27.0-34.0); MEAN CORPUSCULAR HGB CONC 32.3 g/dL (33.0-35.0); MEAN CORPUSCULAR VOLUME 93.2 fL (80.0-100.0); MEAN PLATELET VOLUME 8.6 fL (7.4-11.0); MONOCYTES # (AUTO) 1.1 x10^3/uL (0.3-0.8); MONOCYTES % (AUTO) 7.9 % (0.0-13.0); NEUTROPHILS # (AUTO) 10.3 x10^3/uL (2.2-4.8); NEUTROPHILS % (AUTO) 75.4 % (42.0-75.0); PLATELET COUNT 214 X10^3/uL (150.0-450.0); RED CELL DISTRIBUTION WIDTH 14.2 % (11.6-16.5); WHITE BLOOD COUNT 13.7 X10^3/uL (3.6-10.0)
[2017-08-12 06:50] LABS: ALANINE AMINOTRANSFERASE 133 Units/L (12-78); ALBUMIN 2.5 g/dL (3.4-5.0); ALKALINE PHOSPHATASE 87 Units/L (46-116); ASPARTATE AMINO TRANSFERASE 35 Units/L (15-37); BLOOD UREA NITROGEN 26 mg/dL (7-18); CALCIUM 7.5 mg/dL (8.5-10.1); CARBON DIOXIDE 38.6 mmol/L (21-32); CHLORIDE 101 mmol/L (98-107); COR CA(FOR HYPOALB) 8.7 mg/dL (8.5-10.1); CREATININE 0.84 mg/dL (0.55-1.02); SODIUM 142 mmol/L (136-145); TOTAL PROTEIN 5.4 g/dL (6.4-8.2); eGFR BLACK RACES > 60 (>60); eGFR NON BLACK RACES > 60 (>60)
[2017-08-12] MEDS: ZOFRAN INJ 4 MG VIAL IVP PRN ×2 (07:23→17:49)
[2017-08-12] MEDS: PERCOCET TAB 5/325 MG PO PRN ×2 (07:23→21:38)
[2017-08-12] MEDS: BROVANA IN SCH ×2 (09:16→22:08)
[2017-08-12] MEDS: PULMICORT NEB TX 0.5 MG NEB SCH ×2 (09:16→22:08)
[2017-08-12] MEDS: ROCEPHIN VIAL 1 GM 1 GM in NS 100 ML IV + SPIKE MINIBAG* 100 ML IV SCH (10:11)
[2017-08-12] MEDS: ROBITUSSIN DM PO SCH ×4 (10:12→21:39)
[2017-08-12] MEDS: CARDIZEM CD 240 MG PO SCH (10:12)
[2017-08-12] MEDS: ALDACTONE TAB 25 MG PO SCH (10:12)
[2017-08-12] MEDS: TUSSIONEX PENNKINETIC SUSP PO PRN (10:12)
[2017-08-12] MEDS: ZANTAC PO SCH ×2 (10:13→21:38)
[2017-08-12] MEDS: FLONASE NASAL SPRAY ENOSTRIL SCH (10:13)
[2017-08-12] MEDS: MORPHINE SULFATE INJ 4 MG IVP PRN ×3 (10:21→22:54)
[2017-08-12] MEDS: PHENERGAN INJ 25 MG IVP PRN ×2 (14:18→22:36)
[2017-08-12] MEDS: SOLU-Medrol 40 MG VIAL IVP SCH ×2 (17:42→21:38)
[2017-08-12] MEDS: ZITHROMAX INJ 500 MG VIAL 500 MG in NS 250 ML IV 250 ML IV SCH (17:42)
[2017-08-12] MEDS: ZANAFLEX PO PRN (17:49)
[2017-08-12] MEDS: NS 1000 ML 1,000 ML IV SCH (21:37)
[2017-08-12] MEDS: REQUIP PO SCH (21:38)
[2017-08-12] MEDS: SINGULAIR TAB 10 MG PO SCH (21:38)
[2017-08-12] MEDS: AMBIEN PO PRN (21:38)
[2017-08-12] MEDS: ELAVIL PO SCH (21:48)
[2017-08-13] MEDS: DUONEB 0.5 MG/3 MG NEB SCH ×6 (01:11→20:17)
[2017-08-13] MEDS: XANAX PO SCH ×3 (05:33→21:44)
[2017-08-13] MEDS: MORPHINE SULFATE INJ 4 MG IVP PRN ×3 (05:33→21:48)
[2017-08-13] MEDS: NEURONTIN CAP 300 MG PO SCH ×3 (05:33→21:44)
[2017-08-13] MEDS: TUSSIONEX PENNKINETIC SUSP PO PRN ×2 (06:23→21:44)
[2017-08-13 06:34] LABS: BASOPHILS % (AUTO) 0.2 % (0.2-1.0); EOSINOPHILS % (AUTO) 0.1 % (0.9-2.9); HEMATOCRIT 40.7 % (36.0-47.0); HEMOGLOBIN 13.5 g/dL (12.0-16.0); LYMPHOCYTES # (AUTO) 0.4 X10^3/uL (1.3-2.9); LYMPHOCYTES % (AUTO) 3.3 % (21.0-51.0); MEAN CORPUSCULAR HEMOGLOBIN 31.2 pg (27.0-34.0); MEAN CORPUSCULAR HGB CONC 33.2 g/dL (33.0-35.0); MEAN CORPUSCULAR VOLUME 93.8 fL (80.0-100.0); MEAN PLATELET VOLUME 9.4 fL (7.4-11.0); MONOCYTES # (AUTO) 0.1 x10^3/uL (0.3-0.8); MONOCYTES % (AUTO) 0.7 % (0.0-13.0); NEUTROPHILS # (AUTO) 12.1 x10^3/uL (2.2-4.8); NEUTROPHILS % (AUTO) 95.7 % (42.0-75.0); PLATELET COUNT 191 X10^3/uL (150.0-450.0); RED BLOOD COUNT 4.34 X10^6/uL (3.5-5.4); WHITE BLOOD COUNT 12.7 X10^3/uL (3.6-10.0)
[2017-08-13 06:41] LABS: ALANINE AMINOTRANSFERASE 112 Units/L (12-78); ALBUMIN 2.6 g/dL (3.4-5.0); ALKALINE PHOSPHATASE 97 Units/L (46-116); ASPARTATE AMINO TRANSFERASE 23 Units/L (15-37); BLOOD UREA NITROGEN 22 mg/dL (7-18); CALCIUM 8.1 mg/dL (8.5-10.1); CHLORIDE 101 mmol/L (98-107); COR CA(FOR HYPOALB) 9.2 mg/dL (8.5-10.1); COR NA(FOR HYPERGLY) 141 mmol/L (136-145); SODIUM 140 mmol/L (136-145); TOTAL PROTEIN 6.2 g/dL (6.4-8.2); eGFR BLACK RACES > 60 (>60); eGFR NON BLACK RACES > 60 (>60)
[2017-08-13 07:21] LABS: BAND NEUTROPHILS % 3 % (0-10)
[2017-08-13 07:22] LABS: PLATELET MORPHOLOGY COMMENT NORMAL (NORMAL)
[2017-08-13] MEDS: PHENERGAN INJ 25 MG IVP PRN ×2 (07:53→16:40)
[2017-08-13] MEDS: PERCOCET TAB 5/325 MG PO PRN ×3 (07:54→21:44)
[2017-08-13] MEDS: ZANTAC PO SCH ×3 (07:55→21:44)
[2017-08-13] MEDS: CARDIZEM CD 240 MG PO SCH ×2 (07:55→10:46)
[2017-08-13] MEDS: ROBITUSSIN DM PO SCH ×6 (07:56→21:46)
[2017-08-13] MEDS: ALDACTONE TAB 25 MG PO SCH ×2 (07:56→10:45)
[2017-08-13] MEDS: ROCEPHIN VIAL 1 GM 1 GM in NS 100 ML IV + SPIKE MINIBAG* 100 ML IV SCH ×2 (07:57→10:46)
[2017-08-13] MEDS: ZITHROMAX INJ 500 MG VIAL 500 MG in NS 250 ML IV 250 ML IV SCH ×2 (07:57→10:45)
[2017-08-13] MEDS: SOLU-Medrol 40 MG VIAL IVP SCH ×3 (07:58→21:41)
[2017-08-13] MEDS: BROVANA IN SCH ×2 (09:23→20:17)
[2017-08-13] MEDS: PULMICORT NEB TX 0.5 MG NEB SCH ×2 (09:24→20:17)
[2017-08-13] MEDS: FLONASE NASAL SPRAY ENOSTRIL SCH (10:47)
[2017-08-13] MEDS: ZANAFLEX PO PRN (13:32)
[2017-08-13] MEDS: ZOFRAN INJ 4 MG VIAL IVP PRN (13:35)
[2017-08-13] MEDS ORDERED: BUTT CREAM (COMPOUND) TOP PRN (14:28)
[2017-08-13] MEDS: ELAVIL PO SCH (21:44)
[2017-08-13] MEDS: REQUIP PO SCH (21:44)
[2017-08-13] MEDS: AMBIEN PO PRN (21:44)
[2017-08-13] MEDS: SINGULAIR TAB 10 MG PO SCH (21:44)
[2017-08-13] MEDS: COLACE CAP 100 MG PO PRN (21:46)
[2017-08-13] MEDS: NS 1000 ML 1,000 ML IV SCH (21:47)
[2017-08-14] MEDS: DUONEB 0.5 MG/3 MG NEB SCH ×6 (00:11→20:22)
[2017-08-14] MEDS: MORPHINE SULFATE INJ 4 MG IVP PRN ×2 (03:37→15:56)
[2017-08-14] MEDS: PHENERGAN INJ 25 MG IVP PRN ×3 (03:38→20:54)
[2017-08-14 05:21] LABS: BASOPHILS % (AUTO) 0.1 % (0.2-1.0); HEMATOCRIT 37.3 % (36.0-47.0); LYMPHOCYTES # (AUTO) 0.5 X10^3/uL (1.3-2.9); LYMPHOCYTES % (AUTO) 2.7 % (21.0-51.0); MEAN CORPUSCULAR HEMOGLOBIN 30.1 pg (27.0-34.0); MEAN CORPUSCULAR HGB CONC 32.1 g/dL (33.0-35.0); MEAN CORPUSCULAR VOLUME 93.8 fL (80.0-100.0); MEAN PLATELET VOLUME 9.6 fL (7.4-11.0); MONOCYTES # (AUTO) 0.4 x10^3/uL (0.3-0.8); MONOCYTES % (AUTO) 2.3 % (0.0-13.0); NEUTROPHILS # (AUTO) 16.9 x10^3/uL (2.2-4.8); NEUTROPHILS % (AUTO) 94.9 % (42.0-75.0); PLATELET COUNT 217 X10^3/uL (150.0-450.0); RED BLOOD COUNT 3.98 X10^6/uL (3.5-5.4); RED CELL DISTRIBUTION WIDTH 14.4 % (11.6-16.5); WHITE BLOOD COUNT 17.8 X10^3/uL (3.6-10.0)
[2017-08-14 05:50] LABS: ALANINE AMINOTRANSFERASE 88 Units/L (12-78); ALBUMIN 2.7 g/dL (3.4-5.0); ALKALINE PHOSPHATASE 110 Units/L (46-116); BLOOD UREA NITROGEN 19 mg/dL (7-18); CALCIUM 8.1 mg/dL (8.5-10.1); CARBON DIOXIDE 32.5 mmol/L (21-32); CHLORIDE 101 mmol/L (98-107); COR CA(FOR HYPOALB) 9.1 mg/dL (8.5-10.1); COR NA(FOR HYPERGLY) 143 mmol/L (136-145); CREATININE 0.91 mg/dL (0.55-1.02); SODIUM 140 mmol/L (136-145); TOTAL PROTEIN 6.1 g/dL (6.4-8.2); eGFR BLACK RACES > 60 (>60); eGFR NON BLACK RACES > 60 (>60)
[2017-08-14] MEDS: XANAX PO SCH ×3 (05:54→21:01)
[2017-08-14] MEDS: NEURONTIN CAP 300 MG PO SCH ×3 (05:54→21:01)
[2017-08-14 05:57] LABS: BAND NEUTROPHILS % 8 % (0-10); PLATELET MORPHOLOGY COMMENT NORMAL (NORMAL)
[2017-08-14] MEDS: PERCOCET TAB 5/325 MG PO PRN ×2 (06:57→20:53)
[2017-08-14] MEDS: ZOFRAN INJ 4 MG VIAL IVP PRN ×2 (06:57→15:57)
[2017-08-14] MEDS: ZANAFLEX PO PRN ×2 (06:58→20:54)
[2017-08-14 07:28] LABS: ASPARTATE AMINO TRANSFERASE 23 Units/L (15-37)
[2017-08-14] MEDS: BROVANA IN SCH ×2 (08:29→20:21)
[2017-08-14] MEDS: PULMICORT NEB TX 0.5 MG NEB SCH ×2 (08:29→20:21)
[2017-08-14] MEDS: ZITHROMAX INJ 500 MG VIAL 500 MG in NS 250 ML IV 250 ML IV SCH (09:09)
[2017-08-14] MEDS: ROCEPHIN VIAL 1 GM 1 GM in NS 100 ML IV + SPIKE MINIBAG* 100 ML IV SCH (09:09)
[2017-08-14] MEDS: ZANTAC PO SCH ×2 (09:10→20:54)
[2017-08-14] MEDS: CARDIZEM CD 240 MG PO SCH (09:10)
[2017-08-14] MEDS: ALDACTONE TAB 25 MG PO SCH (09:10)
[2017-08-14] MEDS: TUSSIONEX PENNKINETIC SUSP PO PRN (09:10)
[2017-08-14] MEDS: SOLU-Medrol 40 MG VIAL IVP SCH ×2 (09:11→20:54)
[2017-08-14] MEDS: ROBITUSSIN DM PO SCH ×4 (09:12→20:53)
[2017-08-14] MEDS: FLONASE NASAL SPRAY ENOSTRIL SCH (09:12)
[2017-08-14] MEDS: NICOTINE PATCH TD SCH (13:38)
[2017-08-14] MEDS ORDERED: DULCOLAX SUPPOSITORY 10 MG RECTAL ONE (13:44)
[2017-08-14] MEDS: LASIX IVP SCH ×2 (14:39→20:54)
[2017-08-14] MEDS: REQUIP PO SCH (20:53)
[2017-08-14] MEDS: SINGULAIR TAB 10 MG PO SCH (20:53)
[2017-08-14] MEDS: ELAVIL PO SCH (20:53)
[2017-08-14] MEDS: AMBIEN PO PRN (20:54)
[2017-08-14] MEDS: NS 1000 ML 1,000 ML IV SCH (23:53)
[2017-08-15] MEDS: DUONEB 0.5 MG/3 MG NEB SCH ×4 (00:40→12:02)
[2017-08-15] MEDS: TUSSIONEX PENNKINETIC SUSP PO PRN (05:05)
[2017-08-15] MEDS: XANAX PO SCH ×2 (05:06→13:52)
[2017-08-15] MEDS: NEURONTIN CAP 300 MG PO SCH ×2 (05:06→13:52)
[2017-08-15] MEDS: ZANAFLEX PO PRN ×2 (05:06→05:07)
[2017-08-15] MEDS: PERCOCET TAB 5/325 MG PO PRN (05:06)
[2017-08-15] MEDS: PHENERGAN INJ 25 MG IVP PRN ×2 (05:06→10:44)
[2017-08-15 06:02] LABS: BASOPHILS % (AUTO) 0.1 % (0.2-1.0); HEMATOCRIT 39.5 % (36.0-47.0); HEMOGLOBIN 12.7 g/dL (12.0-16.0); LYMPHOCYTES # (AUTO) 0.7 X10^3/uL (1.3-2.9); LYMPHOCYTES % (AUTO) 3.2 % (21.0-51.0); MEAN CORPUSCULAR HGB CONC 32.2 g/dL (33.0-35.0); MEAN CORPUSCULAR VOLUME 93.2 fL (80.0-100.0); MEAN PLATELET VOLUME 9.6 fL (7.4-11.0); MONOCYTES # (AUTO) 0.7 x10^3/uL (0.3-0.8); MONOCYTES % (AUTO) 3.2 % (0.0-13.0); NEUTROPHILS # (AUTO) 19.4 x10^3/uL (2.2-4.8); NEUTROPHILS % (AUTO) 93.5 % (42.0-75.0); PLATELET COUNT 300 X10^3/uL (150.0-450.0); RED BLOOD COUNT 4.24 X10^6/uL (3.5-5.4); RED CELL DISTRIBUTION WIDTH 14.5 % (11.6-16.5); WHITE BLOOD COUNT 20.7 X10^3/uL (3.6-10.0)
[2017-08-15 06:06] LABS: ALANINE AMINOTRANSFERASE 86 Units/L (12-78); ALBUMIN 3.1 g/dL (3.4-5.0); ALKALINE PHOSPHATASE 112 Units/L (46-116); ASPARTATE AMINO TRANSFERASE 16 Units/L (15-37); BLOOD UREA NITROGEN 24 mg/dL (7-18); CALCIUM 8.6 mg/dL (8.5-10.1); CARBON DIOXIDE 37.8 mmol/L (21-32); CHLORIDE 101 mmol/L (98-107); COR CA(FOR HYPOALB) 9.3 mg/dL (8.5-10.1); COR NA(FOR HYPERGLY) 144 mmol/L (136-145); CREATININE 1.09 mg/dL (0.55-1.02); SODIUM 143 mmol/L (136-145); TOTAL PROTEIN 6.8 g/dL (6.4-8.2); eGFR BLACK RACES > 60 (>60); eGFR NON BLACK RACES 54 (>60)
[2017-08-15 07:03] LABS: BAND NEUTROPHILS % 1 % (0-10); PLATELET MORPHOLOGY COMMENT NORMAL (NORMAL)
[2017-08-15] MEDS: ZITHROMAX INJ 500 MG VIAL 500 MG in NS 250 ML IV 250 ML IV SCH (08:14)
[2017-08-15] MEDS: ALDACTONE TAB 25 MG PO SCH (08:14)
[2017-08-15] MEDS: CARDIZEM CD 240 MG PO SCH (08:14)
[2017-08-15] MEDS: ROCEPHIN VIAL 1 GM 1 GM in NS 100 ML IV + SPIKE MINIBAG* 100 ML IV SCH (08:14)
[2017-08-15] MEDS: ZANTAC PO SCH (08:14)
[2017-08-15] MEDS: LASIX IVP SCH (08:15)
[2017-08-15] MEDS: NICOTINE PATCH TD SCH (08:15)
[2017-08-15] MEDS: FLONASE NASAL SPRAY ENOSTRIL SCH (08:15)
[2017-08-15] MEDS: SOLU-Medrol 40 MG VIAL IVP SCH (08:16)
[2017-08-15] MEDS: ROBITUSSIN DM PO SCH ×2 (08:16→13:52)
[2017-08-15] MEDS: BROVANA IN SCH (08:39)
[2017-08-15] MEDS: PULMICORT NEB TX 0.5 MG NEB SCH (08:40)
[2017-08-15] MEDS ORDERED: MILK OF MAGNESIA PO PRN (10:26)
[2017-08-15] MEDS: COLACE CAP 100 MG PO PRN (10:30)
[2017-08-15] MEDS: MORPHINE SULFATE INJ 4 MG IVP PRN (10:44)
[2017-08-15] MEDS: NS 1000 ML 1,000 ML IV SCH (13:42)
[2017-08-15] MEDS ORDERED: FLEET ENEMA ADULT PR ONE (14:42)
[2017-08-15 16:16] VITALS: BP 146/71
== END 2017-08-15 16:50 | disposition home or self-care (01) | DRG 192 ==
LOC: ER 09:02 → OBSVTOIN 10:48 → ICU 10:48 → MED/SURG 08-06 13:50
PROVIDERS: ADMIT Internal Medicine; ATTEND Internal Medicine
DX: J44.1 Chronic obstructive pulmonary disease with (acute) exacerbation (principal); R06.03 Acute respiratory distress; J20.8 Acute bronchitis due to other specified organisms; I95.89 Other hypotension; I25.10 Atherosclerotic heart disease of native coronary artery without angina pectoris; F41.8 Other specified anxiety disorders; M13.89 Other specified arthritis, multiple sites; I50.9 Heart failure, unspecified
CPT/HCPCS: 36415; 36591; 36600; 71010; 80053; 81001; 82550; 82553; 82803; 83735; 84484; 85025; 87205; 87502; 93005; 93010; 94640; 96365; 96367; 96374; 99221; 99231; 99283; 99284; A4216; A4222; A4618; A7030; J0456; J0696; J1940; J2270; J2405; J2550; J2920; J2930; J7620; J7626

== ENCOUNTER 2017-08-16 15:46 | Emergency (ER) | payer MEDICAID, OTHER ==
--- NOTE | 2017-08-16 15:51 | DR.GENAD ---
HPI - HPI Comment HPI Comment: HAVE SKIN TEARS UPPER EXTREMITIE AND PAIN PELVIC AREA. NO LOC. - Complaint/Symptoms Chief Complaint Doctors Comments: FELL AT HOME WHEN SHE GOT UP TO GO TO THE BATH ROOM. - Nurses notes reviewed Nurses Notes Review: Yes - Source History Provided: Patient - Mode of Arrival Mode of Arrival: Stretcher - Timing Came on: Suddenly - Duration Duration: Constant Duration: Weeks - Severity Severity: Moderate PMH - PMH Past Medical History: Anxiety, Arthritis, Asthma, CHF, COPD, Coronary Artery Disease, Hypertension Past Surgical History: Yes Surgical History: Abdominal Surgery, Appendectomy, Bowel Resection, Cholecystectomy - Family History Family Medical History: Coronary Artery Disease, Hypertension - Social History Do you use any recreational Drugs:: No ROS - Review of Systems Constitutional: Weakness, Fatigue. negative: Chills, Fever Eyes: No Symptoms Reported. negative: Eye Pain, Discharge ENTM: No Symptoms Reported. negative: Ear Pain, Nose Discharge, Nose Congestion , Throat Pain Respiratoy: Non-Productive Cough, Short of Breath. negative: Productive Cough, Wheezing, Hemoptysis Cardiovascular: No Symptoms Reported Gastrointestinal/Abdominal: No Symptoms Reported Genitourinary: No Symptoms Reported Neurological: No Symptoms Reported, Weakness. negative: Headache, Dizziness Musculoskeletal: Back Pain, Muscle Pain, Pelvis Integumentary: Other (SKIN TEAR LT ELBOW AND RT ARM.) Hematologic/Lymphatic: No Symptoms Reported Endocrine: No Symptoms Reported Psychiatric: Depression All Other Systems: Reviewed and Negative PE - Vital Signs Vitals: Temperature 98.3 F Pulse Rate [Right Radial] 88 Pulse Rate 95 Respiratory Rate 22 Blood Pressure [Left Arm] 147/76 Blood Pressure [Right Arm] 154/88 Blood Pressure 123/61 O2 Sat by Pulse Oximetry 98 - General Limitations: No Limitations General Appearance: Alert - Head Head Exam: Normal Inspection - Eyes Eye exam: PERRL, EOMI. negative: Scleral Icterus - ENT ENT Exam: Normal External Ear Exam External Ear Exam: Normal External Inspection TM/Canal Exam: Bilateral Normal Nose Exam: Normal Nose Exam Mouth Exam: Normal Inspection Throat Exam: Tonsillar Erythema - Neck Neck Exam: Normal Inspection - Chest Chest Inspection: Symmetric Chest Wall Rise - Respiratory Respiratory Exam: Normal Lung Sounds Bilat Respiratory Exam: Bilateral Clear to Auscultation - Cardiovascular Cardiovascular Exam: Regular Rate, Normal Rhythm, Normal Heart Sounds - Abdominal Exam Abdominal Exam: Normal Bowel Sounds, Soft. negative: Tenderness - Extremities Extremities Exam: Tenderness (SKIN TEARS LT ELBOW AND RT ARM.) - Back Back Exam: Paraspinal Tenderness - Neurologic Neurological Exam: Alert, Oriented X3 - Psychiatric Psychiatric Exam: Normal Affect, Normal Mood - Skin Skin Exam: Normal Color MDM - Additional Information Additional Information Obtained From: Family - Differential Diagnosis Differential Diagnosis: FALL, SKIN TEARS, WEAKNESS. UTI, DEHYDRATION Course - Treatment Treatment: SEE ORDERS - Education/Counseling Education/Counseling: Patient, Family, Education Educated On: Treatment, Diagnosis, Needs for Follow Up ROR - Labs Reviewed Laboratory Results Reviewed?: Yes Result Diagrams: 08/16/17 16:30 08/16/17 17:20 Laboratory: WBC 16.4 X10^3/uL (3.6-10.0) H 08/16/17 16:30 RBC 3.84 X10^6/uL (3.5-5.4) 08/16/17 16:30 Hgb 11.7 g/dL (12.0-16.0) L 08/16/17 16:30 Hct 35.7 % (36.0-47.0) L 08/16/17 16:30 MCV 92.8 fL (80.0-100.0) 08/16/17 16:30 MCH 30.4 pg (27.0-34.0) 08/16/17 16:30 MCHC 32.8 g/dL (33.0-35.0) L 08/16/17 16:30 RDW 14.2 % (11.6-16.5) 08/16/17 16:30 Plt Count 215 X10^3/uL (150.0-450.0) 08/16/17 16:30 MPV 8.6 fL (7.4-11.0) 08/16/17 16:30 Neut % 86.2 % (42.0-75.0) H 08/16/17 16:30 Lymph % 6.3 % (21.0-51.0) L 08/16/17 16:30 [place] % 7.1 % (0.0-13.0) 08/16/17 16:30 Eos % 0.1 % (0.9-2.9) L 08/16/17 16:30 Baso % 0.3 % (0.2-1.0) 08/16/17 16:30 Neut # 14.1 x10^3/uL (2.2-4.8) H 08/16/17 16:30 Lymph # 1.0 X10^3/uL (1.3-2.9) L 08/16/17 16:30 [place] # 1.2 x10^3/uL (0.3-0.8) H 08/16/17 16:30 Eos # 0.0 x10^3/uL (0.0-0.2) 08/16/17 16:30 Baso # 0.0 X10^3/uL (0.0-0.1) 08/16/17 16:30 Absolute Nucleated RBC 0.0 /100WBC 08/16/17 16:30 Sodium 142 mmol/L (136-145) 08/16/17 17:20 Corrected Sodium TNP 08/16/17 17:20 Potassium 4.4 mmol/L (3.5-5.1) 08/16/17 17:20 Chloride 99 mmol/L (98-107) 08/16/17 17:20 Carbon Dioxide 37.9 mmol/L (21-32) H 08/16/17 17:20 BUN 41 mg/dL (7-18) H 08/16/17 17:20 Creatinine 1.42 mg/dL (0.55-1.02) H 08/16/17 17:20 Est GFR (MDRD) Af Amer 48 (>60) L 08/16/17 17:20 Est GFR (MDRD) Non-Af 40 (>60) L 08/16/17 17:20 Glucose 106 mg/dL (65-99) H 08/16/17 17:20 Calcium 8.3 mg/dL (8.5-10.1) L 08/16/17 17:20 Corrected Calcium 9.1 mg/dL (8.5-10.1) 08/16/17 17:20 Total Bilirubin 0.40 mg/dL (0.2-1.0) 08/16/17 17:20 AST 23 Units/L (15-37) 08/16/17 17:20 ALT 82 Units/L (12-78) H 08/16/17 17:20 Alkaline Phosphatase 100 Units/L (46-116) 08/16/17 17:20 Creatine Kinase 62 Units/L (26-192) 08/16/17 17:20 CK-MB (CK-2) 1.4 ng/mL (0-4.0) 08/16/17 17:20 CK/CKMB % Calc 2.3 % (<4) 08/16/17 17:20 Troponin I < 0.02 ng/mL (0-1.5) 08/16/17 17:20 B-Natriuretic Peptide 83.0 pg/mL (0-79) H 08/16/17 17:20 Total Protein 6.1 g/dL (6.4-8.2) L 08/16/17 17:20 Albumin 3.0 g/dL (3.4-5.0) L 08/16/17 17:20 Globulin 3.1 g/dL (2.5-4.5) 08/16/17 17:20 Albumin/Globulin Ratio 1.0 Ratio (1.1-2.1) L 08/16/17 17:20 Specimen Type Clean catch urine 08/16/17 18:34 Urine Color Yellow (YELLOW) 08/16/17 18:34 Urine Appearance Clear (CLEAR) 08/16/17 18:34 Urine pH 6.0 (5.0 - 8.0) 08/16/17 18:34 Ur Specific [place] 1.010 (1.000-1.030) 08/16/17 18:34 Urine Protein Negative (NEGATIVE) 08/16/17 18:34 Urine Glucose (UA) Negative (NEGATIVE) 08/16/17 18:34 Urine Ketones Negative (NEGATIVE) 08/16/17 18:34 Urine Occult Blood Negative (NEGATIVE) 08/16/17 18:34 Urine Nitrite Negative (NEGATIVE) 08/16/17 18:34 Urine Bilirubin Negative (NEGATIVE) 08/16/17 18:34 Urine Urobilinogen Normal (NORMAL) 08/16/17 18:34 Ur Leukocyte Esterase Negative (NEGATIVE) 08/16/17 18:34 Urine RBC 0 /HPF (NEGATIVE) 08/16/17 18:34 Urine WBC 0 /HPF (NEGATIVE) 08/16/17 18:34 Ur Squamous Epith Cells Negative /HPF (NEGATIVE) 08/16/17 18:34 Urine Bacteria Negative /HPF (NEGATIVE) 08/16/17 18:34 Ur Culture Indicated? No/not indicated 08/16/17 18:34 - XRAY XRAY Interpreted by: Radiologist XRAY Findings: REPORT DISCUSS WITH PATIENT. - EKG Rhythm: NSR (EKG NOTED) - Diagnosis Discharge Problem: Dehydration, Skin tear, Musculoskeletal pain Back pain Qualifiers: Back pain location: low back pain Chronicity: acute Back pain laterality: unspecified Sciatica presence: without sciatica Qualified Code(s): M54.5 - Low back pain - Discharge Plan Disposition: 01 HOME, SELF-CARE Condition: Stable - Follow ups/Referrals Follow ups/Referrals: Endy Jennings [Primary Care Provider] - 3 days - Instructions Instructions: Dehydration, Adult, [id number], Acute Bronchitis, [id number] , Musculoskeletal Pain, Tissue Adhesive Wound Care, [id number] Additional Instructions: RETURN TO ED IF WORSE.
[2017-08-16 16:13] VITALS: BMI 42.7
[2017-08-16 17:20] LABS: BLOOD UREA NITROGEN 41 mg/dL (7-18); CALCIUM 8.3 mg/dL (8.5-10.1); CARBON DIOXIDE 37.9 mmol/L (21-32); CHLORIDE 99 mmol/L (98-107); CREATININE 1.42 mg/dL (0.55-1.02); SODIUM 142 mmol/L (136-145); TROPONIN I < 0.02 ng/mL (0-1.5); eGFR BLACK RACES 48 (>60); eGFR NON BLACK RACES 40 (>60)
[2017-08-16 17:24] LABS: ALANINE AMINOTRANSFERASE 82 Units/L (12-78); ALKALINE PHOSPHATASE 100 Units/L (46-116); ASPARTATE AMINO TRANSFERASE 23 Units/L (15-37); CKMB % 2.3 % (<4); COR CA(FOR HYPOALB) 9.1 mg/dL (8.5-10.1); CREATINE KINASE 62 Units/L (26-192); CREATINE KINASE MB 1.4 ng/mL (0-4.0); TOTAL PROTEIN 6.1 g/dL (6.4-8.2)
[2017-08-16 17:32] LABS: BASOPHILS % (AUTO) 0.3 % (0.2-1.0); EOSINOPHILS % (AUTO) 0.1 % (0.9-2.9); HEMATOCRIT 35.7 % (36.0-47.0); HEMOGLOBIN 11.7 g/dL (12.0-16.0); LYMPHOCYTES % (AUTO) 6.3 % (21.0-51.0); MEAN CORPUSCULAR HEMOGLOBIN 30.4 pg (27.0-34.0); MEAN CORPUSCULAR HGB CONC 32.8 g/dL (33.0-35.0); MEAN CORPUSCULAR VOLUME 92.8 fL (80.0-100.0); MEAN PLATELET VOLUME 8.6 fL (7.4-11.0); MONOCYTES # (AUTO) 1.2 x10^3/uL (0.3-0.8); MONOCYTES % (AUTO) 7.1 % (0.0-13.0); NEUTROPHILS # (AUTO) 14.1 x10^3/uL (2.2-4.8); NEUTROPHILS % (AUTO) 86.2 % (42.0-75.0); PLATELET COUNT 215 X10^3/uL (150.0-450.0); RED BLOOD COUNT 3.84 X10^6/uL (3.5-5.4); RED CELL DISTRIBUTION WIDTH 14.2 % (11.6-16.5); WHITE BLOOD COUNT 16.4 X10^3/uL (3.6-10.0)
[2017-08-16] MEDS ORDERED: MORPHINE SULFATE INJ 4 MG ONE (17:55)
[2017-08-16] MEDS: MORPHINE SULFATE INJ 4 MG IVP ONE (18:00)
--- NOTE | 2017-08-16 18:00 | RAD ---
HISTORY: 62-year-old female status post fall. History of COPD and asthma. Study: Frontal view of the chest. Comparison: Chest radiograph 08/11/2017 Findings: Right chest wall chemo port is unchanged. The trachea is midline. The cardiac silhouette is stably enlarged. The lungs are clear without foca l consolidation, effusion or pneumothorax. Soft tissues are unremarkable. Osseous structures are unr emarkable. IMPRESSION: 1. No acute cardiopulmonary disease. Reported By:
--- NOTE | 2017-08-16 18:16 | CT ---
CT pelvis without contrast Indication: Patient discharged the hospital. Pain after fall. Technique: Helical images through the pelvis without contrast. Coronal and sagittal reformats provide d. Findings: Mild SI joints symphysis pubis DJD noted. Mild hip joint DJD noted. There is lower lumbar s pine disc change and postsurgical change. Limited images through the abdomen and pelvis show vascular calcifications. There is bilateral gluteus minimus muscle belly atrophy no large hip joint effusion seen. Impression: Postsurgical change without acute fracture. Reported By:
[2017-08-16] MEDS ORDERED: NS 1000 ML 1,000 ML ONE (18:39)
[2017-08-16 18:41] LABS: BILIRUBIN,URINE NEGATIVE (NEGATIVE); BLOOD/HEMOGLOBIN,URINE NEGATIVE (NEGATIVE); GLUCOSE, URINE NEGATIVE (NEGATIVE); KETONES,URINE NEGATIVE (NEGATIVE); LEUKOCYTE ESTERASE ,URINE NEGATIVE (NEGATIVE); NITRITES,URINE NEGATIVE (NEGATIVE); PROTEIN,URINE NEGATIVE (NEGATIVE); UROBILINOGEN,URINE NORMAL (NORMAL)
[2017-08-16 18:49] LABS: APPEARANCE,URINE CLEAR (CLEAR); COLOR,URINE YELLOW (YELLOW); RBC,URINE 0 /HPF (NEGATIVE)
[2017-08-16 18:50] LABS: BACTERIA,URINE NEGATIVE /HPF (NEGATIVE); SQUAMOUS EPITHELIAL CELL,UR NEGATIVE /HPF (NEGATIVE)
[2017-08-16] MEDS: NS 1000 ML 1,000 ML IV ONE (18:52)
[2017-08-16 20:25] VITALS: BP 147/76
== END 2017-08-16 20:00 | disposition home or self-care (01) ==
LOC: ER 16:26
DX: E86.0 Dehydration (principal); M79.1 Myalgia; M54.5 Low back pain; S51.012A Laceration without foreign body of left elbow, initial encounter; S41.111A Laceration without foreign body of right upper arm, initial encounter; W19.XXXA Unspecified fall, initial encounter; Y92.009 Unspecified place in unspecified non-institutional (private) residence as the place of occurrence of the external cause
CPT/HCPCS: 36415; 36591; 71045; 72192; 80053; 81001; 82550; 82553; 83880; 84484; 85025; 93005; 93010; 96365; 96374; 99283; 99285; J2270

== ENCOUNTER 2017-08-17 13:31 | Inpatient (IN) | payer OTHER, MEDICAID ==
[2017-08-17] MEDS ORDERED: SOLU-Medrol 125 MG VIAL IVP ONE (14:14)
[2017-08-17] MEDS ORDERED: DUONEB 0.5 MG/3 MG NEB ONE (14:14)
[2017-08-17] MEDS ORDERED: DUONEB 0.5 MG/3 MG ONE (14:18)
--- NOTE | 2017-08-17 14:20 | DR.GENAD ---
HPI - PCP Primary Care Physician: YADIRA - Complaint/Symptoms Chief Complaint Doctors Comments: Patient complains of SOB, wheezing, cold and cough. States she just went home from the hospital and she has been running a temp 106 according to patient. Patient states she ran out of oxygen and pulled a dressor on top of her recently. States she just had a cath in [place] less than 30 days ago and they did not find any blockage. States she has home oxygen and breathing treatments. States they do not want the fluid to build up around her heart any more. states she just went home from the hospital yesterday. She is a patient of Dr. Coley. Chief Complaint:: EMS WAS CALLED OUT TO PATIENT HAVING A 106.9 FEVER. WHEN PATIENT ARRIVED SHE STATED THAT SHE HAS FELL TWICE YESTERDAY ON ONCE TODAY. SHE ALSO STATED THAT SHE HAS BEEN FEELING BAD SINCE TWO DAYS AGO AND THE AMBULANCE HAS COME TO HER HOUSE YESTERDAY. SHE HAS REDNESS NOTED TO THE RIGHT ARM. - Nurses notes reviewed Nurses Notes Review: Yes - Source History Provided: Patient, EMS - Mode of Arrival Mode of Arrival: EMS - Timing Onset of Chief Complaint: 08/15/17 Came on: Gradually - Duration Duration: Constant How lon Duration: Days - Location Location: SOB, wheezing - Severity Severity: Moderate - Modifying Factors Worsens:: nothing Improves:: nothing PMH - PMH Past Medical History: Yes Past Medical History: Anxiety, Arthritis, Asthma, CHF, COPD, Coronary Artery Disease, Hypertension Past Surgical History: Yes Surgical History: Abdominal Surgery, Appendectomy, Bowel Resection, Cholecystectomy - Family History History of Family Medical Conditions: Yes Family Medical History: Coronary Artery Disease, Hypertension - Social History Does patient currently use any type of tobacco product: No Have you used tobacco products in the last 12 months: No Does any household member use tobacco: No Do you use any recreational Drugs:: No Lives With: Family Lives Where: Home - infectious screening In the last 2 months have you had wt loss of >10#?: NO Have you had fever, night sweats or hemotysis?: No Have you traveled outside the country in the last 6 months?: No Isolation: Standard ROS - Review of Systems Constitutional: No Symptoms Reported, Fever, Weakness Eyes: No Symptoms Reported ENTM: No Symptoms Reported Respiratoy: No Symptoms Reported, Non-Productive Cough, Short of Breath, Wheezing. negative: See HPI, Productive Cough, Moist Cough, Dry Cough, Hacking Cough, Barking Cough, Brassy Cough, Orthopnea, Stridor, Hemoptysis, Other Cardiovascular: No Symptoms Reported, Chest Pain, Edema Gastrointestinal/Abdominal: No Symptoms Reported. negative: See HPI, Abdominal Pain, Constipation, Diarrhea, Nausea, Vomiting, Food Intolerance, Other Genitourinary: No Symptoms Reported Neurological: No Symptoms Reported, Weakness, Problems Walking Musculoskeletal: No Symptoms Reported, Right, Arm (bruising) Integumentary: No Symptoms Reported Hematologic/Lymphatic: No Symptoms Reported Endocrine: No Symptoms Reported Psychiatric: No Symptoms Reported PE - Vital Signs Vitals: Temperature 99.1 F Pulse Rate 103 Respiratory Rate 20 Blood Pressure [Left Arm] 147/76 Blood Pressure [Right Arm] 154/88 Blood Pressure 97/61 O2 Sat by Pulse Oximetry 92 - General Limitations: No Limitations General Appearance: Alert, In Distress (moderate), Obese - Head Head Exam: Normal Inspection, Atraumatic, Normocephalic - Eyes Eye exam: Normal Appearance, PERRL, EOMI. negative: Scleral Icterus, Conjunctival Injection, Nystagmus, Miosis, Mydrasis, Periorbital Swelling, Periorbital Tenderness, Other - ENT ENT Exam: Normal Exam, Normal Oropharynx, Normal External Ear Exam, Mucous Membranes Moist, TM's Normal Bilaterally External Ear Exam: Normal External Inspection TM/Canal Exam: Bilateral Normal Nose Exam: Normal Nose Exam Mouth Exam: Normal Inspection Throat Exam: Normal Inspection - Neck Neck Exam: Normal Inspection, Full ROM, Trachea Midline - Chest Chest Inspection: Normal Inspection, Symmetric Chest Wall Rise - Respiratory Respiratory Exam: Normal Lung Sounds Bilat, Chest Wall Tenderness, Prolonged Expiratory Phase, Respiratory Distress (wheezing) Respiratory Exam: Bilateral Wheezing, Bilateral Decreased Breath Sounds, Left Rales, Lower Rales - Cardiovascular Cardiovascular Exam: Regular Rate, Normal Rhythm, Normal Heart Sounds, Systolic Murmur - Abdominal Exam Abdominal Exam: Normal Inspection, Normal Bowel Sounds, Soft Abdominal Tenderness: negative: RUQ, RLQ, LUQ, LLQ, Epigastrium, Suprapubic, Diffuse, Mild, Moderate, Severe, Other - Extremities Extremities Exam: Normal Inspection, Full ROM, Tenderness (right arm with bruising), Normal Capillary Refill, Edema (2+ edema) - Back Back Exam: Normal Inspection, Full ROM - Neurologic Neurological Exam: Alert, Oriented X3, CN II-XII Intact, Reflexes Normal. negative: Normal Gait (gait not tested) - Psychiatric Psychiatric Exam: Normal Affect, Normal Mood - Skin Skin Exam: Warm, Dry, Intact, Normal Color. negative: Diaphoresis (abruising arms and chest) Course - Consultation Called: 22:49 Call Returned: 22:50 (Patient returned for admission) Consultation Comments: 2310 Patient states she tried to go home and walk into the house but she was unable to make the long walk and came back to the emergency room to be admitted. - Education/Counseling Education/Counseling: Patient, Family Educated On: Treatment, Diagnosis, Needs for Follow Up ROR - Labs Reviewed Laboratory Results Reviewed?: Yes (all labs and x-ray results reviewed and discussed with pataient) Result Diagrams: 08/17/17 15:58 08/17/17 15:58 Laboratory: WBC 13.2 X10^3/uL (3.6-10.0) H 08/17/17 15:58 RBC 4.11 X10^6/uL (3.5-5.4) 08/17/17 15:58 Hgb 12.5 g/dL (12.0-16.0) 08/17/17 15:58 Hct 38.6 % (36.0-47.0) 08/17/17 15:58 MCV 93.8 fL (80.0-100.0) 08/17/17 15:58 MCH 30.3 pg (27.0-34.0) 08/17/17 15:58 MCHC 32.3 g/dL (33.0-35.0) L 08/17/17 15:58 RDW 14.3 % (11.6-16.5) 08/17/17 15:58 Plt Count 209 X10^3/uL (150.0-450.0) 08/17/17 15:58 MPV 8.9 fL (7.4-11.0) 08/17/17 15:58 Neut % 86.8 % (42.0-75.0) H 08/17/17 15:58 Lymph % 7.3 % (21.0-51.0) L 08/17/17 15:58 [place] % 5.0 % (0.0-13.0) 08/17/17 15:58 Eos % 0.7 % (0.9-2.9) L 08/17/17 15:58 Baso % 0.2 % (0.2-1.0) 08/17/17 15:58 Neut # 11.4 x10^3/uL (2.2-4.8) H 08/17/17 15:58 Lymph # 1.0 X10^3/uL (1.3-2.9) L 08/17/17 15:58 [place] # 0.7 x10^3/uL (0.3-0.8) 08/17/17 15:58 Eos # 0.1 x10^3/uL (0.0-0.2) 08/17/17 15:58 Baso # 0.0 X10^3/uL (0.0-0.1) 08/17/17 15:58 Absolute Nucleated RBC 0.0 /100WBC 08/17/17 15:58 INR Target Range - 08/17/17 15:58 INR 0.95 (0.8-1.3) 08/17/17 15:58 PTT 23.5 SECONDS (22.9-36.5) 08/17/17 15:58 PTT Comment - 08/17/17 15:58 Sample Site Lr 08/17/17 17:08 ABG pH 7.420 (7.35-7.45) 08/17/17 17:08 ABG pCO2 65.0 mmHg (35.0-45.0) H* 08/17/17 17:08 ABG pO2 65.0 mmHg (80.0-100.0) L 08/17/17 17:08 ABG HCO3 42.2 mmol/L (22-26) H* 08/17/17 17:08 ABG O2 Saturation 93.0 % (90-100) 08/17/17 17:08 ABG Base Excess 14.8 mmol/L (-2.0-2.0) H 08/17/17 17:08 Sameer Test Pos 08/17/17 17:08 A-a Gradient 82.0 mmHg 08/17/17 17:08 FiO2 32.000 08/17/17 17:08 Blood Gas Comments Pt baltazar well. cdn 08/17/17 17:08 Sodium 140 mmol/L (136-145) 08/17/17 15:58 Corrected Sodium TNP 08/17/17 15:58 Potassium 4.4 mmol/L (3.5-5.1) 08/17/17 15:58 Chloride 96 mmol/L (98-107) L 08/17/17 15:58 Carbon Dioxide 40.8 mmol/L (21-32) H* 08/17/17 15:58 BUN 27 mg/dL (7-18) H 08/17/17 15:58 Creatinine 1.19 mg/dL (0.55-1.02) H 08/17/17 15:58 Est GFR (MDRD) Af Amer 59 (>60) 08/17/17 15:58 Est GFR (MDRD) Non-Af 49 (>60) L 08/17/17 15:58 Glucose 107 mg/dL (65-99) H 08/17/17 15:58 Calcium 8.3 mg/dL (8.5-10.1) L 08/17/17 15:58 Corrected Calcium 8.9 mg/dL (8.5-10.1) 08/17/17 15:58 Magnesium 2.1 mg/dL (1.7-2.9) 08/17/17 15:58 Total Bilirubin 0.80 mg/dL (0.2-1.0) 08/17/17 15:58 AST 43 Units/L (15-37) H 08/17/17 15:58 ALT 104 Units/L (12-78) H 08/17/17 15:58 Alkaline Phosphatase 96 Units/L (46-116) 08/17/17 15:58 Creatine Kinase 73 Units/L (26-192) 08/17/17 15:58 CK-MB (CK-2) 1.2 ng/mL (0-4.0) 08/17/17 15:58 CK/CKMB % Calc 1.6 % (<4) 08/17/17 15:58 Troponin I < 0.02 ng/mL (0-1.5) 08/17/17 15:58 Total Protein 6.6 g/dL (6.4-8.2) 08/17/17 15:58 Albumin 3.2 g/dL (3.4-5.0) L 08/17/17 15:58 Globulin 3.4 g/dL (2.5-4.5) 08/17/17 15:58 Albumin/Globulin Ratio 0.9 Ratio (1.1-2.1) L 08/17/17 15:58 Specimen Type Catherized urine 08/17/17 14:19 Urine Color Yellow (YELLOW) 08/17/17 14:19 Urine Appearance Clear (CLEAR) 08/17/17 14:19 Urine pH 5.0 (5.0 - 8.0) 08/17/17 14:19 Ur Specific Beat[place] 1.020 (1.000-1.030) 08/17/17 14:19 Urine Protein Negative (NEGATIVE) 08/17/17 14:19 Urine Glucose (UA) Negative (NEGATIVE) 08/17/17 14:19 Urine Ketones Negative (NEGATIVE) 08/17/17 14:19 Urine Occult Blood 2+ (NEGATIVE) 08/17/17 14:19 Urine Nitrite Negative (NEGATIVE) 08/17/17 14:19 Urine Bilirubin Negative (NEGATIVE) 08/17/17 14:19 Urine Urobilinogen Normal (NORMAL) 08/17/17 14:19 Ur Leukocyte Esterase Negative (NEGATIVE) 08/17/17 14:19 Urine RBC Rare /HPF (NEGATIVE) 08/17/17 14:19 Urine WBC Rare /HPF (NEGATIVE) 08/17/17 14:19 Ur Squamous Epith Cells Negative /HPF (NEGATIVE) 08/17/17 14:19 Urine Bacteria Negative /HPF (NEGATIVE) 08/17/17 14:19 Ur Culture Indicated? No/not indicated 08/17/17 14:19 - XRAY XRAY Interpreted by: Radiologist (CXR: no acute cardiopulmonary changes) - EKG Rate: 101 [place]: Normal Rhythm: ST Block: None ST: Ischemia, Nonsp - Diagnosis Discharge Problem: Hypercapnemia, COPD (chronic obstructive pulmonary disease), Hypertension, COPD exacerbation, Abrasion, multiple sites, Contusion of chest, Chronic kidney disease (CKD), Essential hypertension - Discharge Plan Disposition: ADMITTED INPATIENT Condition: Stable - Follow ups/Referrals Follow ups/Referrals: DAVONTE COLEY [Primary Care Provider] - 3 days - Instructions
[2017-08-17 14:35] LABS: BILIRUBIN,URINE NEGATIVE (NEGATIVE); BLOOD/HEMOGLOBIN,URINE 2+ (NEGATIVE); GLUCOSE, URINE NEGATIVE (NEGATIVE); KETONES,URINE NEGATIVE (NEGATIVE); LEUKOCYTE ESTERASE ,URINE NEGATIVE (NEGATIVE); NITRITES,URINE NEGATIVE (NEGATIVE); PROTEIN,URINE NEGATIVE (NEGATIVE); UROBILINOGEN,URINE NORMAL (NORMAL)
--- NOTE | 2017-08-17 14:35 | RAD ---
New Examination: AP chest History: Fever Comparison reference 08/16/2017 Findings: Continued normal heart size with arteriosclerotic aorta and grossly clear lungs. Detail is limited by portable technique and patient size. The lung bases are not well evaluated. A right-sided injection port terminates in the SVC. Impression: No acute process identified. Standard PA and lateral views suggested when condition allow s. The Reported By:
[2017-08-17] MEDS ORDERED: SOLU-Medrol 125 MG VIAL ONE (14:36)
[2017-08-17 15:01] LABS: APPEARANCE,URINE CLEAR (CLEAR); COLOR,URINE YELLOW (YELLOW)
[2017-08-17 15:02] LABS: BACTERIA,URINE NEGATIVE /HPF (NEGATIVE); RBC,URINE RARE /HPF (NEGATIVE); SQUAMOUS EPITHELIAL CELL,UR NEGATIVE /HPF (NEGATIVE)
[2017-08-17 16:28] LABS: BASOPHILS % (AUTO) 0.2 % (0.2-1.0); EOSINOPHILS # (AUTO) 0.1 x10^3/uL (0.0-0.2); EOSINOPHILS % (AUTO) 0.7 % (0.9-2.9); HEMATOCRIT 38.6 % (36.0-47.0); HEMOGLOBIN 12.5 g/dL (12.0-16.0); LYMPHOCYTES % (AUTO) 7.3 % (21.0-51.0); MEAN CORPUSCULAR HEMOGLOBIN 30.3 pg (27.0-34.0); MEAN CORPUSCULAR HGB CONC 32.3 g/dL (33.0-35.0); MEAN CORPUSCULAR VOLUME 93.8 fL (80.0-100.0); MEAN PLATELET VOLUME 8.9 fL (7.4-11.0); MONOCYTES # (AUTO) 0.7 x10^3/uL (0.3-0.8); NEUTROPHILS # (AUTO) 11.4 x10^3/uL (2.2-4.8); NEUTROPHILS % (AUTO) 86.8 % (42.0-75.0); PLATELET COUNT 209 X10^3/uL (150.0-450.0); RED BLOOD COUNT 4.11 X10^6/uL (3.5-5.4); RED CELL DISTRIBUTION WIDTH 14.3 % (11.6-16.5); WHITE BLOOD COUNT 13.2 X10^3/uL (3.6-10.0)
[2017-08-17] MEDS ORDERED: NEOSPORIN OINT ONE (16:29)
[2017-08-17 16:45] LABS: ALANINE AMINOTRANSFERASE 104 Units/L (12-78); ALBUMIN 3.2 g/dL (3.4-5.0); ALKALINE PHOSPHATASE 96 Units/L (46-116); ASPARTATE AMINO TRANSFERASE 43 Units/L (15-37); BLOOD UREA NITROGEN 27 mg/dL (7-18); CALCIUM 8.3 mg/dL (8.5-10.1); CHLORIDE 96 mmol/L (98-107); CKMB % 1.6 % (<4); COR CA(FOR HYPOALB) 8.9 mg/dL (8.5-10.1); CREATINE KINASE 73 Units/L (26-192); CREATINE KINASE MB 1.2 ng/mL (0-4.0); CREATININE 1.19 mg/dL (0.55-1.02); MAGNESIUM 2.1 mg/dL (1.7-2.9); SODIUM 140 mmol/L (136-145); TOTAL PROTEIN 6.6 g/dL (6.4-8.2); TROPONIN I < 0.02 ng/mL (0-1.5); eGFR BLACK RACES 59 (>60); eGFR NON BLACK RACES 49 (>60)
[2017-08-17 16:50] LABS: CARBON DIOXIDE 40.8 mmol/L (21-32)
[2017-08-17] MEDS ORDERED: PERCOCET TAB 5/325 MG PO STA (16:58)
[2017-08-17 17:13] LABS: ABG BASE EXCESS 14.8 mmol/L (-2.0-2.0)
[2017-08-17 17:14] LABS: ABG HCO3 42.2 mmol/L (22-26)
[2017-08-17 17:15] LABS: ABG ALLEN TEST POS
[2017-08-17] MEDS ORDERED: LEVAQUIN PREMIX IV 500 MG 500 MG/100 ML BAG IV ONE (23:00)
[2017-08-18] MEDS: NS 1000 ML 1,000 ML IV SCH ×2 (00:22→23:04)
[2017-08-18] MEDS: PROTONIX INJ 40 MG VIAL IVP SCH ×2 (00:22→08:27)
[2017-08-18] MEDS: DUONEB 0.5 MG/3 MG NEB SCH ×6 (01:24→21:20)
[2017-08-18 07:00] LABS: SODIUM 139 mmol/L (136-145); eGFR BLACK RACES > 60 (>60); eGFR NON BLACK RACES > 60 (>60)
[2017-08-18] MEDS: SOLU-Medrol 40 MG VIAL IVP SCH ×2 (08:27→16:37)
[2017-08-18] MEDS: NORCO 5/325 MG TAB PO PRN ×2 (08:27→18:09)
[2017-08-18] MEDS: ZITHROMAX INJ 500 MG VIAL 250 MG in NS 250 ML IV 250 ML IV SCH (08:27)
[2017-08-18] MEDS ORDERED: LASIX PO SCH (09:00)
[2017-08-18] MEDS ORDERED: LEVAQUIN PREMIX IV 500 MG 500 MG/100 ML BAG IV SCH (09:00)
[2017-08-18] MEDS ORDERED: SPIRONOLACTONE 25 MG PO SCH (09:00)
[2017-08-18] MEDS: ALDACTONE TAB 25 MG PO SCH (09:12)
[2017-08-18 09:45] LABS: BLOOD UREA NITROGEN 23 mg/dL (7-18); CALCIUM 8.3 mg/dL (8.5-10.1); CARBON DIOXIDE 39.7 mmol/L (21-32); CHLORIDE 98 mmol/L (98-107); COR NA(FOR HYPERGLY) 141 mmol/L (136-145); CREATININE 0.88 mg/dL (0.55-1.02)
[2017-08-18] MEDS ORDERED: DILTIAZEM HCL PO SCH (10:15)
[2017-08-18] MEDS ORDERED: FLUTICASONE PROPIONATE SCH (10:15)
[2017-08-18] MEDS: ZANTAC PO SCH ×2 (11:09→21:10)
[2017-08-18] MEDS: CARDIZEM CD 240 MG PO SCH (11:09)
[2017-08-18] MEDS: PHENERGAN TAB 25 MG PO PRN (11:10)
[2017-08-18] MEDS: XANAX PO PRN ×2 (11:10→21:18)
[2017-08-18] MEDS: ZANAFLEX PO PRN (11:10)
[2017-08-18] MEDS ORDERED: [UNRECOGNIZED DRUG - OTHER] INH SCH (13:00)
[2017-08-18] MEDS ORDERED: ALBUTEROL SULFATE INH SCH (13:00)
[2017-08-18] MEDS ORDERED: IPRATROPIUM INH SCH (13:00)
[2017-08-18] MEDS ORDERED: PROVENTIL NEB TX 0.083% 2.5MG/ 3ML NEB SCH (13:00)
[2017-08-18] MEDS ORDERED: Atrovent NEB TX 0.02% NEB SCH (13:00)
[2017-08-18] MEDS ORDERED: DUONEB 0.5 MG/3 MG ONE ×2 (13:08→16:49)
--- NOTE | 2017-08-18 13:22 | RAD ---
Examination: Chest, AP and lateral views History: COPD Comparison reference 08/17/2017 Findings: Normal heart size, arteriosclerotic aorta, no evidence for localized pulmonary consolidatio n, pneumothorax or large pleural effusion. Detail is limited by patient's size and nonstandard AP pro jection. Right subclavian injection port is unchanged in position. Impression: No acute chest disease identified. See above. Reported By:
[2017-08-18] MEDS: NEURONTIN CAP 300 MG PO SCH ×2 (14:55→21:09)
--- NOTE | 2017-08-18 18:24 | DR.H&P ---
H&P - History & Physical for Day of: H&P Date: 08/17/17 - Chief Complaint Chief Complaint: short of breath - Allergies Allergies/Adverse Reactions: Allergies Allergy/AdvReac Type Severity Reaction Status Date / Time ketorolac [From Toradol] Allergy Verified 08/17/17 23:19 nalbuphine [From Nubain] Allergy Verified 08/17/17 23:19 Penicillins Allergy Verified 08/17/17 23:19 Sulfa (Sulfonamide Allergy Verified 08/17/17 23:19 Antibiotics) [SULFA] BETA BLOCKERS Allergy Uncoded 08/17/17 23:19 - History of Present Illness History of Present Illness: is a 62 year old patient of who presented to the emergency room via EMS with complaints of fever of 106.9, cough, shortness of breath, and multiple falls. Patient reports that she was recently discharged from the hospital with the same complaints. Patient reports that she ran out of oxygen in her tank at home yesterday. Associated symptoms include fever, weakness, nonproductive cough, shortness of breath and wheezing. She reports a recent heart cath in [place], [place] with no blockages noted. Medical history includes anxiety, arthritis, asthma, CHF, COPD, CAD, hypertension. On examination, HR is noted to be regular with a rate of 103. Bilateral wheezing and rales are noted throughout. Lung sounds diminished throughout. Abdomen is round, soft, and non-tender with normal bowel sounds noted in all quadrants. There is normal range of motion noted to all extremities. There is bruising noted to the right arm. Patient stated that a dresser fell over on her a few days ago. 2+ pitting edema noted to bilateral lower extremities. On arrival, vital signs were 99.1, 103, 20, 92%NC 2LPM, 97/ 61. Labs, EKG, and chest xray were obtained. Abnormal Labs values include the following: WBC 13.2, MCHC 32.3, Chloride 96, Carbon Dioxide 40.8, BUN 27, Creatinine 1.19, GFR(non) 49, Glucose 107, Calcium 8.3, AST 43, ALT 104, Albumin 3.2, A/G Ratio 0.9. ABG reports: PCO2 65.0, PO2 65.0, HCO3 42.2, Base Excess 14.8, FIO2 32.0. Urinalysis reports: Occult Blood 2+. Blood culture (x2) Pending. Chest xray: No acute process identified Standard PA and lateral views suggested when condition allows. Patient was given a duoneb x1, solumedrol 125mg , Levaquin 500mg IV x 1, and Percocet 5/325mg x 1 in the ER. Only slight improvement in symptoms noted. Patient was admitted to the hospital for further treatment and evaluation. We will follow up with additional labs in the morning. - Past Medical History Past Medical History: Anxiety, Arthritis, Asthma, CHF, COPD, Coronary Artery Disease, Hypertension - Past Surgical History Surgical History: Abdominal Surgery, Appendectomy, Bowel Resection, Cholecystectomy - Family History Family Medical History: Hypertension - Social History Does patient currently use any type of tobacco product: No Have you used tobacco products in the last 12 months: No Does any household member use tobacco: No Alcohol Use: None Drug Use: None - Medications Home Medications: Codeine Phosphate/Guaifenesin [Virtussin AC Liquid] 1 - 2 teaspoon PO Q4-6H PRN 08/18/17 [History Confirmed 08/18/17] - Review of Systems Constitutional: Fever, Weakness Eyes: No Symptoms Reported. denies: See HPI, Pain, Vision Change, Conjunctivae Inflammation, Eyelid Inflammation, Redness, Other ENT: No Symptoms Reported. denies: See HPI, Ear Pain, Ear Discharge, Nose Pain , Nose Discharge, Nose Congestion, Mouth Pain, Mouth Swelling, Throat Pain, Throat Swelling, Other Respiratory: See HPI, Cough, Shortness of Breath, Wheezing Cardiovascular: Chest Pain, Edema Gastrointestinal: No Symptoms Reported. denies: See HPI, Nausea, Vomiting, Abdominal Pain, Diarrhea, Constipation, Melena, Hematochezia, Other Genitourinary: No Symptoms Reported. denies: See HPI, Dysuria, Frequency, Incontinence, Hematuria, Retention, Other Musculoskeletal: No Symptoms Reported, Arm Pain. denies: See HPI, Shoulder Pain , Back Pain, Hand Pain, Leg Pain, Foot Pain, Neck Pain, Other Skin: Bruising (right arm). denies: No Symptoms Reported, See HPI, Rash, Lesions, Jaundice, Wound, Ecchymosis, Other Neurological: Weakness - Physical Exam Vital Signs: Temperature 98.1 F Pulse Rate [Left Radial] 88 Pulse Rate 94 Respiratory Rate 20 Blood Pressure [Left Arm] 138/74 Blood Pressure [Right Arm] 134/71 Blood Pressure 97/61 O2 Sat by Pulse Oximetry 97 Oriented: Normal. negative: Time, Person, Place, Not Oriented, Unable to test, Other Eyes: Normal. negative: Blurred Vision, Diplopia, Discharge, Pain, Redness, Photophobia, Other Ear: Normal. negative: Right, Left, Swelling, Ecchymosis, Hemotypanum, Abrasion , Laceration Nose: Normal. negative: Injected, Discharge, Blood, Other Respiratory: Diminished Throughout, Wheezes Throughout Cardiovascular: Edema (bilateral lower extremity) : Normal. negative: Dysuria, Hematuria, Frequency, Discharge, Testicular Pain , Bleeding, , Other Auscultation: Bowel Sounds: Normal. negative: Bruit, Absent, Increased, Decreased, High Pitched, Other Palpation: Normal. negative: Spleen Enlarged, Liver Enlarged, Mass Pulsatile, Other Tenderness: Normal. negative: Diffuse, RUQ, RLQ, LUQ, LLQ, Epigastric, Periumbilical, Suprapubic, Mild, Moderate, Severe, Rebound, Guarding, Rigidity, Other Skin: Bruising (right arm ) Musculoskeletal: Instability Psychiatric: Normal Mood Description: Calm Affect: Normal Speech Pattern: Clear - Assessment/Plan (1) Respiratory failure with hypercapnia Qualifiers: Chronicity: acute on chronic Qualified Code(s): J96.22 - Acute and chronic respiratory failure with hypercapnia Status: Acute Plan: supplemental oxygen, respiratory treatments, solu-medrol 80mg iv q8h, continue home medications, continue to monitor labs and chest xray (2) COPD exacerbation Status: Acute Plan: supplemental oxygen, respiratory treatments, solu-medrol 80mg iv q8h, levaquin 250mg iv hs, azithromycin 250mg iv daily, continue home medications, continue to monitor labs and chest xray
[2017-08-18] MEDS ORDERED: PATIENT'S HOME MEDICATION (Tiotropium Bromide Monohydrate 1 INH) INH SCH (21:00)
[2017-08-18] MEDS ORDERED: PATIENT'S HOME MEDICATION (Levocetirizine Dihydrochloride [Levocetirizine Dihydrochloride] PO SCH (21:00)
[2017-08-18] MEDS: ELAVIL PO SCH (21:10)
[2017-08-18] MEDS: LEVAQUIN PREMIX IV 250 MG 250 MG/50 ML BAG IV SCH (21:10)
[2017-08-18] MEDS: REQUIP PO SCH (21:10)
[2017-08-18] MEDS: HumuLIN R SC PRN (21:19)
[2017-08-19] MEDS: ROBITUSSIN DM PO PRN ×2 (00:43→14:34)
[2017-08-19] MEDS: NORCO 5/325 MG TAB PO PRN ×2 (00:43→06:11)
[2017-08-19] MEDS: SOLU-Medrol 40 MG VIAL IVP SCH ×3 (00:44→16:19)
[2017-08-19] MEDS ORDERED: DUONEB 0.5 MG/3 MG ONE ×2 (00:51→13:27)
[2017-08-19] MEDS: DUONEB 0.5 MG/3 MG NEB SCH ×6 (00:58→21:41)
[2017-08-19 04:38] VITALS: BMI 49.7
[2017-08-19] MEDS: NEURONTIN CAP 300 MG PO SCH ×3 (06:13→21:14)
[2017-08-19] MEDS: HumuLIN R SC PRN ×2 (06:24→21:18)
[2017-08-19] MEDS ORDERED: MORPHINE SULFATE INJ 4 MG IVP PRN (07:54)
[2017-08-19] MEDS ORDERED: XANAX PO PRN (07:54)
[2017-08-19] MEDS ORDERED: MILK OF MAGNESIA PO SCH (09:00)
[2017-08-19] MEDS: FLONASE NASAL SPRAY ENOSTRIL SCH (09:04)
[2017-08-19] MEDS: ALDACTONE TAB 25 MG PO SCH (09:05)
[2017-08-19] MEDS: ZITHROMAX INJ 500 MG VIAL 250 MG in NS 250 ML IV 250 ML IV SCH (09:05)
[2017-08-19] MEDS: PROTONIX INJ 40 MG VIAL IVP SCH (09:05)
[2017-08-19] MEDS: LASIX IVP SCH ×2 (09:05→10:06)
[2017-08-19] MEDS: XANAX PO SCH ×3 (09:06→21:15)
[2017-08-19] MEDS: PHENERGAN TAB 25 MG PO PRN ×2 (09:06→21:28)
[2017-08-19] MEDS: CARDIZEM CD 240 MG PO SCH (09:06)
[2017-08-19] MEDS: ZANTAC PO SCH ×2 (09:06→21:31)
[2017-08-19] MEDS: SINGULAIR TAB 10 MG PO SCH (09:07)
[2017-08-19] MEDS: NORCO 10/325 TAB PO SCH ×4 (09:07→21:12)
[2017-08-19] MEDS: COLACE CAP 100 MG PO SCH ×2 (10:06→21:14)
[2017-08-19] MEDS ORDERED: MILK OF MAGNESIA PO PRN (11:21)
--- NOTE | 2017-08-19 11:23 | PCM.PROG ---
Progress Note - Progress Note for Day of Date: 08/18/17 - Subjective Subjective: WAS ADMITTED FOR RESPIRATORY FAILURE WITH HYPERCAPNIA. TODAY, SHE IS ALERT AND ORIENED, LYING IN BED ON MORNING ROUNDS. SHE CONTINUES WITH COMPLAINTS OF SHORNTESS OF BREATH. ON EXAMINATION, HEART IS REGULAR IN RATE AND RHYTHM. BILATERAL LUNGS ARE NOTED WITH SCATTERED WHEEZING. ABDOMEN ROUND, SOFT, AND NON-TENDER. BILATERAL LOWER EXTREMITIES ARE NOTED WITH 1+ PITTING EDEMA WITHOUT REDNESS. RIGHT UPPER EXTREMITY NOTED WITH BRUISING FROM A REPORTED FALL. STAFF REPORTS THAT PATIENT IS UNSTEADY WHEN AMBULATING. VITALS THIS MORNING ARE 97.8-87-20-96%-134/71. SHE REMAINS HEMODYNAMICALLY STABLE TODAY. TODAY, WE WILL CONTINUE WITH CURRENT PLAN OF CARE. WE WILL REVIEW HOME MEDICATIONS AND RESTART APPROPRIATE. WE WILL OBTAIN AM LABS AND CONTINUE TO MONITOR PATIENT. - Past Medical Family Social History Past Med/Fam/Surg Hx: No changes since H&P Allergies: Allergies ketorolac [From Toradol] Allergy (Verified 08/17/17 23:19) nalbuphine [From Nubain] Allergy (Verified 08/17/17 23:19) Penicillins Allergy (Verified 08/17/17 23:19) Sulfa (Sulfonamide Antibiotics) [SULFA] Allergy (Verified 08/17/17 23:19) BETA BLOCKERS Allergy (Uncoded 08/17/17 23:19) - Review of Systems ROS: No change since H&P - Vital Signs and I&O's Vital Signs: Temperature 98.1 F Pulse Rate [Left Radial] 96 Pulse Rate 90 Respiratory Rate 22 Blood Pressure [Left Arm] 143/73 Blood Pressure [Right Arm] 134/71 Blood Pressure 97/61 O2 Sat by Pulse Oximetry 96 Intake and Output: Intake & Output 08/16/17 08/17/17 08/18/17 08/19/17 11:59 11:59 11:59 11:59 Intake Total 0 1633 Output Total 1775 Balance 0 -142 - Physical Exam Oriented: Normal. negative: Time, Person, Place, Not Oriented, Unable to test, Other Eyes: Normal. negative: Blurred Vision, Diplopia, Discharge, Pain, Redness, Photophobia, Other Ear: Normal. negative: Right, Left, Swelling, Ecchymosis, Hemotypanum, Abrasion , Laceration Nose: Normal. negative: Injected, Discharge, Blood, Other Throat: Normal Respiratory: Right, Left, Generalized, Wheezes Cardiovascular: Edema (bilateral lower extremity) : Normal. negative: Dysuria, Hematuria, Frequency, Discharge, Testicular Pain , Bleeding, , Other Auscultation: Bowel Sounds: Normal. negative: Bruit, Absent, Increased, Decreased, High Pitched, Other Palpation: Normal Tenderness: Normal. negative: Diffuse, RUQ, RLQ, LUQ, LLQ, Epigastric, Periumbilical, Suprapubic, Mild, Moderate, Severe, Rebound, Guarding, Rigidity, Other Skin: Bruising (right arm ) Musculoskeletal: Instability Psychiatric: Normal Mood Description: Calm Affect: Normal Speech Pattern: Clear, Appropriate - Laboratory and Diagnostics Result Diagrams: 08/17/17 15:58 08/18/17 06:20 Labs: 08/17/17 16:05 Blood Blood Culture - Preliminary 08/17/17 15:58 Blood Blood Culture - Preliminary Laboratory WBC 13.2 X10^3/uL (3.6-10.0) H 08/17/17 15:58 RBC 4.11 X10^6/uL (3.5-5.4) 08/17/17 15:58 Hgb 12.5 g/dL (12.0-16.0) 08/17/17 15:58 Hct 38.6 % (36.0-47.0) 08/17/17 15:58 MCV 93.8 fL (80.0-100.0) 08/17/17 15:58 MCH 30.3 pg (27.0-34.0) 08/17/17 15:58 MCHC 32.3 g/dL (33.0-35.0) L 08/17/17 15:58 RDW 14.3 % (11.6-16.5) 08/17/17 15:58 Plt Count 209 X10^3/uL (150.0-450.0) 08/17/17 15:58 MPV 8.9 fL (7.4-11.0) 08/17/17 15:58 Neut % 86.8 % (42.0-75.0) H 08/17/17 15:58 Lymph % 7.3 % (21.0-51.0) L 08/17/17 15:58 [place] % 5.0 % (0.0-13.0) 08/17/17 15:58 Eos % 0.7 % (0.9-2.9) L 08/17/17 15:58 Baso % 0.2 % (0.2-1.0) 08/17/17 15:58 Neut # 11.4 x10^3/uL (2.2-4.8) H 08/17/17 15:58 Lymph # 1.0 X10^3/uL (1.3-2.9) L 08/17/17 15:58 [place] # 0.7 x10^3/uL (0.3-0.8) 08/17/17 15:58 Eos # 0.1 x10^3/uL (0.0-0.2) 08/17/17 15:58 Baso # 0.0 X10^3/uL (0.0-0.1) 08/17/17 15:58 Absolute Nucleated RBC 0.0 /100WBC 08/17/17 15:58 INR Target Range - 08/17/17 15:58 INR 0.95 (0.8-1.3) 08/17/17 15:58 PTT 23.5 SECONDS (22.9-36.5) 08/17/17 15:58 PTT Comment - 08/17/17 15:58 Sample Site Lr 08/17/17 17:08 ABG pH 7.420 (7.35-7.45) 08/17/17 17:08 ABG pCO2 65.0 mmHg (35.0-45.0) H* 08/17/17 17:08 ABG pO2 65.0 mmHg (80.0-100.0) L 08/17/17 17:08 ABG HCO3 42.2 mmol/L (22-26) H* 08/17/17 17:08 ABG O2 Saturation 93.0 % (90-100) 08/17/17 17:08 ABG Base Excess 14.8 mmol/L (-2.0-2.0) H 08/17/17 17:08 Sameer Test Pos 08/17/17 17:08 A-a Gradient 82.0 mmHg 08/17/17 17:08 FiO2 32.000 08/17/17 17:08 Blood Gas Comments Pt baltazar well. cdn 08/17/17 17:08 Sodium 139 mmol/L (136-145) 08/18/17 06:20 Corrected Sodium 141 mmol/L (136-145) 08/18/17 06:20 Potassium 4.8 mmol/L (3.5-5.1) 08/18/17 06:20 Chloride 98 mmol/L (98-107) 08/18/17 06:20 Carbon Dioxide 39.7 mmol/L (21-32) H 08/18/17 06:20 BUN 23 mg/dL (7-18) H 08/18/17 06:20 Creatinine 0.88 mg/dL (0.55-1.02) 08/18/17 06:20 Est GFR (MDRD) Af Amer > 60 (>60) 08/18/17 06:20 Est GFR (MDRD) Non-Af > 60 (>60) 08/18/17 06:20 Glucose 176 mg/dL (65-99) H 08/18/17 06:20 POC Glucose (mg/dL) 139 mg/dL (65-99) H 08/19/17 11:14 Calcium 8.3 mg/dL (8.5-10.1) L 08/18/17 06:20 Corrected Calcium 8.9 mg/dL (8.5-10.1) 08/17/17 15:58 Magnesium 2.1 mg/dL (1.7-2.9) 08/17/17 15:58 Total Bilirubin 0.80 mg/dL (0.2-1.0) 08/17/17 15:58 AST 43 Units/L (15-37) H 08/17/17 15:58 ALT 104 Units/L (12-78) H 08/17/17 15:58 Alkaline Phosphatase 96 Units/L (46-116) 08/17/17 15:58 Creatine Kinase 73 Units/L (26-192) 08/17/17 15:58 CK-MB (CK-2) 1.2 ng/mL (0-4.0) 08/17/17 15:58 CK/CKMB % Calc 1.6 % (<4) 08/17/17 15:58 Troponin I < 0.02 ng/mL (0-1.5) 08/17/17 15:58 Total Protein 6.6 g/dL (6.4-8.2) 08/17/17 15:58 Albumin 3.2 g/dL (3.4-5.0) L 08/17/17 15:58 Globulin 3.4 g/dL (2.5-4.5) 08/17/17 15:58 Albumin/Globulin Ratio 0.9 Ratio (1.1-2.1) L 08/17/17 15:58 Specimen Type Catherized urine 08/17/17 14:19 Urine Color Yellow (YELLOW) 08/17/17 14:19 Urine Appearance Clear (CLEAR) 08/17/17 14:19 Urine pH 5.0 (5.0 - 8.0) 08/17/17 14:19 Ur Specific [place] 1.020 (1.000-1.030) 08/17/17 14:19 Urine Protein Negative (NEGATIVE) 08/17/17 14:19 Urine Glucose (UA) Negative (NEGATIVE) 08/17/17 14:19 Urine Ketones Negative (NEGATIVE) 08/17/17 14:19 Urine Occult Blood 2+ (NEGATIVE) 08/17/17 14:19 Urine Nitrite Negative (NEGATIVE) 08/17/17 14:19 Urine Bilirubin Negative (NEGATIVE) 08/17/17 14:19 Urine Urobilinogen Normal (NORMAL) 08/17/17 14:19 Ur Leukocyte Esterase Negative (NEGATIVE) 08/17/17 14:19 Urine RBC Rare /HPF (NEGATIVE) 08/17/17 14:19 Urine WBC Rare /HPF (NEGATIVE) 08/17/17 14:19 Ur Squamous Epith Cells Negative /HPF (NEGATIVE) 08/17/17 14:19 Urine Bacteria Negative /HPF (NEGATIVE) 08/17/17 14:19 Ur Culture Indicated? No/not indicated 08/17/17 14:19 Urine Opiates Screen Positive (NEG=<300) A 08/18/17 12:48 Urine Methadone Screen Negative (NEG=<300) 08/18/17 12:48 Ur Barbiturates Screen Negative (NEG=<200) 08/18/17 12:48 Ur Phencyclidine Scrn Negative (NEG=<25) 08/18/17 12:48 Ur Amphetamines Screen Negative (NEG=<1000) 08/18/17 12:48 U Benzodiazepines Scrn Positive (NEG=<200) A 08/18/17 12:48 Urine Cocaine Screen Negative (NEG=<300) 08/18/17 12:48 U Marijuana (THC) Screen Negative (NEG=<50) 08/18/17 12:48 - Plan (1) Respiratory failure with hypercapnia Status: Acute Qualifiers: Chronicity: acute on chronic Qualified Code(s): J96.22 - Acute and chronic respiratory failure with hypercapnia Plan: supplemental oxygen, respiratory treatments, solu-medrol 80mg iv q8h, continue home medications, continue to monitor labs and chest xray (2) COPD exacerbation Status: Acute Plan: supplemental oxygen, respiratory treatments, solu-medrol 80mg iv q8h, levaquin 250mg iv hs, azithromycin 250mg iv daily, continue home medications, continue to monitor labs and chest xray
[2017-08-19] MEDS: ZOFRAN INJ 4 MG VIAL IVP PRN ×2 (11:26→23:00)
[2017-08-19] MEDS: NICOTINE PATCH TD SCH (12:30)
[2017-08-19] MEDS: ELAVIL PO SCH (21:14)
[2017-08-19] MEDS: REQUIP PO SCH (21:15)
[2017-08-19] MEDS: LEVAQUIN PREMIX IV 250 MG 250 MG/50 ML BAG IV SCH (21:17)
[2017-08-19] MEDS: AMBIEN PO PRN (21:28)
[2017-08-20] MEDS: NORCO 10/325 TAB PO SCH ×6 (00:55→20:29)
[2017-08-20] MEDS: DUONEB 0.5 MG/3 MG NEB SCH ×6 (01:20→21:24)
[2017-08-20] MEDS: NS 1000 ML 1,000 ML IV SCH ×2 (01:27→22:58)
[2017-08-20] MEDS: SOLU-Medrol 40 MG VIAL IVP SCH (01:34)
[2017-08-20] MEDS: PHENERGAN TAB 25 MG PO PRN ×2 (02:58→08:38)
[2017-08-20] MEDS: NEURONTIN CAP 300 MG PO SCH ×3 (05:44→22:58)
[2017-08-20] MEDS: ZOFRAN INJ 4 MG VIAL IVP PRN ×2 (05:45→16:26)
[2017-08-20] MEDS: XANAX PO SCH ×3 (05:45→22:58)
[2017-08-20 06:09] LABS: BASOPHILS % (AUTO) 0.1 % (0.2-1.0); HEMOGLOBIN 11.5 g/dL (12.0-16.0); LYMPHOCYTES # (AUTO) 0.2 X10^3/uL (1.3-2.9); LYMPHOCYTES % (AUTO) 1.7 % (21.0-51.0); MEAN CORPUSCULAR HEMOGLOBIN 30.3 pg (27.0-34.0); MEAN CORPUSCULAR HGB CONC 32.8 g/dL (33.0-35.0); MEAN CORPUSCULAR VOLUME 92.5 fL (80.0-100.0); MEAN PLATELET VOLUME 9.2 fL (7.4-11.0); MONOCYTES # (AUTO) 0.3 x10^3/uL (0.3-0.8); MONOCYTES % (AUTO) 2.4 % (0.0-13.0); NEUTROPHILS # (AUTO) 13.3 x10^3/uL (2.2-4.8); NEUTROPHILS % (AUTO) 95.8 % (42.0-75.0); PLATELET COUNT 170 X10^3/uL (150.0-450.0); RED BLOOD COUNT 3.79 X10^6/uL (3.5-5.4); RED CELL DISTRIBUTION WIDTH 14.1 % (11.6-16.5); WHITE BLOOD COUNT 13.9 X10^3/uL (3.6-10.0)
[2017-08-20 06:23] LABS: ALANINE AMINOTRANSFERASE 100 Units/L (12-78); ALBUMIN 2.8 g/dL (3.4-5.0); ALKALINE PHOSPHATASE 88 Units/L (46-116); ASPARTATE AMINO TRANSFERASE 39 Units/L (15-37); BLOOD UREA NITROGEN 26 mg/dL (7-18); CALCIUM 8.3 mg/dL (8.5-10.1); CARBON DIOXIDE 36.8 mmol/L (21-32); CHLORIDE 102 mmol/L (98-107); COR CA(FOR HYPOALB) 9.3 mg/dL (8.5-10.1); COR NA(FOR HYPERGLY) 146 mmol/L (136-145); CREATININE 1.09 mg/dL (0.55-1.02); SODIUM 144 mmol/L (136-145); TOTAL PROTEIN 6.1 g/dL (6.4-8.2); eGFR BLACK RACES > 60 (>60); eGFR NON BLACK RACES 54 (>60)
[2017-08-20 06:56] LABS: PLATELET MORPHOLOGY COMMENT NORMAL (NORMAL)
[2017-08-20] MEDS: NICOTINE PATCH TD SCH (08:36)
[2017-08-20] MEDS: CARDIZEM CD 240 MG PO SCH (08:37)
[2017-08-20] MEDS: SINGULAIR TAB 10 MG PO SCH (08:38)
[2017-08-20] MEDS: ALDACTONE TAB 25 MG PO SCH (08:38)
[2017-08-20] MEDS: ZANTAC PO SCH ×2 (08:39→20:29)
[2017-08-20] MEDS: ZITHROMAX INJ 500 MG VIAL 250 MG in NS 250 ML IV 250 ML IV SCH (08:39)
[2017-08-20] MEDS: PROTONIX INJ 40 MG VIAL IVP SCH (08:40)
[2017-08-20] MEDS: FLONASE NASAL SPRAY ENOSTRIL SCH (11:17)
[2017-08-20] MEDS: ZOFRAN INJ 4 MG VIAL 16 MG, ATIVAN INJ 2 MG VIAL 1 MG, DECADRON INJ 10 MG in NS 50 ML I... IV PRN ×2 (12:39→20:25)
[2017-08-20] MEDS ORDERED: MORPHINE SULFATE INJ 10 MG IVP PRN (13:45)
[2017-08-20] MEDS: TESSALON PERLES PO PRN (16:26)
[2017-08-20] MEDS: LEVAQUIN PREMIX IV 250 MG 250 MG/50 ML BAG IV SCH (20:28)
[2017-08-20] MEDS: AMBIEN PO PRN (20:28)
[2017-08-20] MEDS: COLACE CAP 100 MG PO SCH (20:29)
[2017-08-20] MEDS: ELAVIL PO SCH (20:29)
[2017-08-20] MEDS: ZANAFLEX PO PRN (20:30)
[2017-08-20] MEDS: REQUIP PO SCH (21:32)
[2017-08-21] MEDS: NORCO 10/325 TAB PO SCH ×6 (00:48→20:41)
[2017-08-21] MEDS: DUONEB 0.5 MG/3 MG NEB SCH ×6 (01:30→21:28)
[2017-08-21] MEDS: PHENERGAN TAB 25 MG PO PRN ×2 (03:05→09:45)
[2017-08-21] MEDS: TESSALON PERLES PO PRN ×2 (03:06→20:40)
[2017-08-21] MEDS ORDERED: DECADRON INJ PRESERVATIVE-FREE IM ONE (04:51)
[2017-08-21] MEDS ORDERED: ATIVAN INJ 2 MG VIAL ONE (04:53)
[2017-08-21] MEDS ORDERED: NS 100 ML IV 100 ML IV ONE (04:53)
[2017-08-21] MEDS: NEURONTIN CAP 300 MG PO SCH ×3 (05:09→21:00)
[2017-08-21] MEDS: ZOFRAN INJ 4 MG VIAL 16 MG, ATIVAN INJ 2 MG VIAL 1 MG, DECADRON INJ 10 MG in NS 50 ML I... IV PRN ×2 (05:10→22:26)
[2017-08-21] MEDS: XANAX PO SCH ×3 (05:10→23:48)
[2017-08-21 06:15] LABS: BASOPHILS % (AUTO) 0.1 % (0.2-1.0); HEMATOCRIT 31.9 % (36.0-47.0); HEMOGLOBIN 10.6 g/dL (12.0-16.0); LYMPHOCYTES # (AUTO) 0.4 X10^3/uL (1.3-2.9); LYMPHOCYTES % (AUTO) 3.6 % (21.0-51.0); MEAN CORPUSCULAR HEMOGLOBIN 30.8 pg (27.0-34.0); MEAN CORPUSCULAR HGB CONC 33.2 g/dL (33.0-35.0); MEAN CORPUSCULAR VOLUME 92.8 fL (80.0-100.0); MONOCYTES # (AUTO) 0.2 x10^3/uL (0.3-0.8); MONOCYTES % (AUTO) 2.1 % (0.0-13.0); NEUTROPHILS # (AUTO) 10.5 x10^3/uL (2.2-4.8); NEUTROPHILS % (AUTO) 94.2 % (42.0-75.0); PLATELET COUNT 139 X10^3/uL (150.0-450.0); RED BLOOD COUNT 3.44 X10^6/uL (3.5-5.4); RED CELL DISTRIBUTION WIDTH 14.1 % (11.6-16.5); WHITE BLOOD COUNT 11.2 X10^3/uL (3.6-10.0)
[2017-08-21 06:38] LABS: ALANINE AMINOTRANSFERASE 102 Units/L (12-78); ALBUMIN 2.7 g/dL (3.4-5.0); ALKALINE PHOSPHATASE 80 Units/L (46-116); ASPARTATE AMINO TRANSFERASE 27 Units/L (15-37); BLOOD UREA NITROGEN 26 mg/dL (7-18); CALCIUM 8.4 mg/dL (8.5-10.1); CARBON DIOXIDE 36.7 mmol/L (21-32); CHLORIDE 100 mmol/L (98-107); COR CA(FOR HYPOALB) 9.4 mg/dL (8.5-10.1); COR NA(FOR HYPERGLY) 140 mmol/L (136-145); CREATININE 0.99 mg/dL (0.55-1.02); SODIUM 139 mmol/L (136-145); TOTAL PROTEIN 5.6 g/dL (6.4-8.2); eGFR BLACK RACES > 60 (>60); eGFR NON BLACK RACES > 60 (>60)
[2017-08-21 07:11] LABS: PLATELET MORPHOLOGY COMMENT NORMAL (NORMAL)
[2017-08-21] MEDS: ZOFRAN INJ 4 MG VIAL IVP PRN (08:00)
[2017-08-21] MEDS: ZANTAC PO SCH ×2 (08:00→20:41)
[2017-08-21] MEDS: SINGULAIR TAB 10 MG PO SCH (08:00)
[2017-08-21] MEDS: PROTONIX INJ 40 MG VIAL IVP SCH (08:00)
[2017-08-21] MEDS: CARDIZEM CD 240 MG PO SCH (08:01)
[2017-08-21] MEDS: ALDACTONE TAB 25 MG PO SCH (08:02)
[2017-08-21] MEDS: NICOTINE PATCH TD SCH (08:02)
[2017-08-21] MEDS: PULMICORT NEB TX 0.5 MG NEB SCH ×2 (09:30→21:29)
[2017-08-21] MEDS: BROVANA IN SCH ×2 (09:30→21:29)
[2017-08-21] MEDS: PEPCID 20 MG IV PREMIX* 20 MG/50 ML BAG IV SCH ×2 (10:33→20:40)
[2017-08-21] MEDS: LASIX IVP SCH ×2 (10:33→20:40)
[2017-08-21] MEDS: FLONASE NASAL SPRAY ENOSTRIL SCH (11:13)
--- NOTE | 2017-08-21 13:42 | PCM.PROG ---
Progress Note - Progress Note for Day of Date: 08/21/17 - Subjective Subjective: WAS ADMITTED FOR RESPIRATORY FAILURE WITH HYPERCAPNIA. TODAY, SHE IS ALERT AND ORIENED, LYING IN BED ON MORNING ROUNDS. SHE CONTINUES WITH COMPLAINTS OF SHORNTESS OF BREATH. ON EXAMINATION, HEART IS REGULAR IN RATE AND RHYTHM. BILATERAL LUNGS ARE NOTED WITH SCATTERED WHEEZING. CO SEVERE NAUSEA AND VOMITING. PLAN TO STOP ZITHROMAX, ADD STOOL STUDIES AND CONTINUE WITH RESP THERAPY, PT CONSULT FOR SWING BED REHAB - Past Medical Family Social History Past Med/Fam/Surg Hx: No changes since H&P Allergies: Allergies ketorolac [From Toradol] Allergy (Verified 08/17/17 23:19) nalbuphine [From Nubain] Allergy (Verified 08/17/17 23:19) Penicillins Allergy (Verified 08/17/17 23:19) Sulfa (Sulfonamide Antibiotics) [SULFA] Allergy (Verified 08/17/17 23:19) BETA BLOCKERS Allergy (Uncoded 08/17/17 23:19) - Review of Systems ROS: No change since H&P - Vital Signs and I&O's Vital Signs: Temperature 98.2 F Pulse Rate [Right Radial] 83 Pulse Rate [Left Radial] 103 Pulse Rate 65 Respiratory Rate 18 Blood Pressure [Left Arm] 157/75 Blood Pressure [Right Arm] 135/62 Blood Pressure 97/61 O2 Sat by Pulse Oximetry 96 Intake and Output: Intake & Output 08/19/17 08/20/17 08/21/17 08/22/17 11:59 11:59 11:59 11:59 Intake Total 1633 2395 2545 Output Total 1775 3050 800 Balance -142 -655 1745 - Physical Exam Oriented: Normal Eyes: Normal Ear: Normal Nose: Normal Throat: Normal Respiratory: Right, Left, Generalized, Wheezes Cardiovascular: Edema (bilateral lower extremity) : Normal Auscultation: Bowel Sounds: Normal, Decreased Tenderness: Epigastric Skin: Decreased Turgur, Bruising (right arm ) Musculoskeletal: Back:Lumbar, Instability Psychiatric: Anxiety Mood Description: Depressed Affect: Anxious, Normal Speech Pattern: Clear, Appropriate - Laboratory and Diagnostics Result Diagrams: 08/21/17 05:10 08/21/17 05:10 Labs: 08/17/17 16:05 Blood Blood Culture - Preliminary 08/17/17 15:58 Blood Blood Culture - Preliminary Laboratory WBC 11.2 X10^3/uL (3.6-10.0) H 08/21/17 05:10 RBC 3.44 X10^6/uL (3.5-5.4) L 08/21/17 05:10 Hgb 10.6 g/dL (12.0-16.0) L 08/21/17 05:10 Hct 31.9 % (36.0-47.0) L 08/21/17 05:10 MCV 92.8 fL (80.0-100.0) 08/21/17 05:10 MCH 30.8 pg (27.0-34.0) 08/21/17 05:10 MCHC 33.2 g/dL (33.0-35.0) 08/21/17 05:10 RDW 14.1 % (11.6-16.5) 08/21/17 05:10 Plt Count 139 X10^3/uL (150.0-450.0) L 08/21/17 05:10 Plt Count Comment Adequate (ADEQUATE) 08/21/17 05:10 MPV 9.0 fL (7.4-11.0) 08/21/17 05:10 Neut % 94.2 % (42.0-75.0) H 08/21/17 05:10 Lymph % 3.6 % (21.0-51.0) L 08/21/17 05:10 [place] % 2.1 % (0.0-13.0) 08/21/17 05:10 Eos % 0.0 % (0.9-2.9) L 08/21/17 05:10 Baso % 0.1 % (0.2-1.0) L 08/21/17 05:10 Neut # 10.5 x10^3/uL (2.2-4.8) H 08/21/17 05:10 Lymph # 0.4 X10^3/uL (1.3-2.9) L 08/21/17 05:10 [place] # 0.2 x10^3/uL (0.3-0.8) L 08/21/17 05:10 Eos # 0.0 x10^3/uL (0.0-0.2) 08/21/17 05:10 Baso # 0.0 X10^3/uL (0.0-0.1) 08/21/17 05:10 Absolute Nucleated RBC 0.0 /100WBC 08/21/17 05:10 Total Counted 100 08/21/17 05:10 Neutrophils % (Manual) 86 % (39-76) H 08/21/17 05:10 Lymphocytes % (Manual) 10 % (13-43) L 08/21/17 05:10 Monocytes % (Manual) 4 % (4-9) 08/21/17 05:10 Plt Morphology Comment Normal (NORMAL) 08/21/17 05:10 RBC Morphology Normal (NORMAL) 08/21/17 05:10 INR Target Range - 08/17/17 15:58 INR 0.95 (0.8-1.3) 08/17/17 15:58 PTT 23.5 SECONDS (22.9-36.5) 08/17/17 15:58 PTT Comment - 08/17/17 15:58 Sample Site Lr 08/17/17 17:08 ABG pH 7.420 (7.35-7.45) 08/17/17 17:08 ABG pCO2 65.0 mmHg (35.0-45.0) H* 08/17/17 17:08 ABG pO2 65.0 mmHg (80.0-100.0) L 08/17/17 17:08 ABG HCO3 42.2 mmol/L (22-26) H* 08/17/17 17:08 ABG O2 Saturation 93.0 % (90-100) 08/17/17 17:08 ABG Base Excess 14.8 mmol/L (-2.0-2.0) H 08/17/17 17:08 Sameer Test Pos 08/17/17 17:08 A-a Gradient 82.0 mmHg 08/17/17 17:08 FiO2 32.000 08/17/17 17:08 Blood Gas Comments Pt baltazar well. cdn 08/17/17 17:08 Sodium 139 mmol/L (136-145) 08/21/17 05:10 Corrected Sodium 140 mmol/L (136-145) 08/21/17 05:10 Potassium 4.8 mmol/L (3.5-5.1) 08/21/17 05:10 Chloride 100 mmol/L (98-107) 08/21/17 05:10 Carbon Dioxide 36.7 mmol/L (21-32) H 08/21/17 05:10 BUN 26 mg/dL (7-18) H 08/21/17 05:10 Creatinine 0.99 mg/dL (0.55-1.02) 08/21/17 05:10 Est GFR (MDRD) Af Amer > 60 (>60) 08/21/17 05:10 Est GFR (MDRD) Non-Af > 60 (>60) 08/21/17 05:10 Glucose 158 mg/dL (65-99) H 08/21/17 05:10 POC Glucose (mg/dL) 186 mg/dL (65-99) H 08/21/17 11:42 Calcium 8.4 mg/dL (8.5-10.1) L 08/21/17 05:10 Corrected Calcium 9.4 mg/dL (8.5-10.1) 08/21/17 05:10 Magnesium 2.1 mg/dL (1.7-2.9) 08/17/17 15:58 Total Bilirubin 0.40 mg/dL (0.2-1.0) 08/21/17 05:10 AST 27 Units/L (15-37) 08/21/17 05:10 ALT 102 Units/L (12-78) H 08/21/17 05:10 Alkaline Phosphatase 80 Units/L (46-116) 08/21/17 05:10 Creatine Kinase 73 Units/L (26-192) 08/17/17 15:58 CK-MB (CK-2) 1.2 ng/mL (0-4.0) 08/17/17 15:58 CK/CKMB % Calc 1.6 % (<4) 08/17/17 15:58 Troponin I < 0.02 ng/mL (0-1.5) 08/17/17 15:58 Total Protein 5.6 g/dL (6.4-8.2) L 08/21/17 05:10 Albumin 2.7 g/dL (3.4-5.0) L 08/21/17 05:10 Globulin 2.9 g/dL (2.5-4.5) 08/21/17 05:10 Albumin/Globulin Ratio 0.9 Ratio (1.1-2.1) L 08/21/17 05:10 Specimen Type Catherized urine 08/17/17 14:19 Urine Color Yellow (YELLOW) 08/17/17 14:19 Urine Appearance Clear (CLEAR) 08/17/17 14:19 Urine pH 5.0 (5.0 - 8.0) 08/17/17 14:19 Ur Specific [place] 1.020 (1.000-1.030) 08/17/17 14:19 Urine Protein Negative (NEGATIVE) 08/17/17 14:19 Urine Glucose (UA) Negative (NEGATIVE) 08/17/17 14:19 Urine Ketones Negative (NEGATIVE) 08/17/17 14:19 Urine Occult Blood 2+ (NEGATIVE) 08/17/17 14:19 Urine Nitrite Negative (NEGATIVE) 08/17/17 14:19 Urine Bilirubin Negative (NEGATIVE) 08/17/17 14:19 Urine Urobilinogen Normal (NORMAL) 08/17/17 14:19 Ur Leukocyte Esterase Negative (NEGATIVE) 08/17/17 14:19 Urine RBC Rare /HPF (NEGATIVE) 08/17/17 14:19 Urine WBC Rare /HPF (NEGATIVE) 08/17/17 14:19 Ur Squamous Epith Cells Negative /HPF (NEGATIVE) 08/17/17 14:19 Urine Bacteria Negative /HPF (NEGATIVE) 08/17/17 14:19 Ur Culture Indicated? No/not indicated 08/17/17 14:19 Urine Opiates Screen Positive (NEG=<300) A 08/18/17 12:48 Urine Methadone Screen Negative (NEG=<300) 08/18/17 12:48 Ur Barbiturates Screen Negative (NEG=<200) 08/18/17 12:48 Ur Phencyclidine Scrn Negative (NEG=<25) 08/18/17 12:48 Ur Amphetamines Screen Negative (NEG=<1000) 08/18/17 12:48 U Benzodiazepines Scrn Positive (NEG=<200) A 08/18/17 12:48 Urine Cocaine Screen Negative (NEG=<300) 08/18/17 12:48 U Marijuana (THC) Screen Negative (NEG=<50) 08/18/17 12:48 - Plan (1) Weakness generalized Status: Acute Plan: CONTINUE RESP THERAPY, SUPPLEMENTAL O2. AM LABS, STOOL STUDIES TODAY. PEPCID 20MG IV BID. CONTINUE ZOFRAN COCKTAIL. LASIX 20 IV Q 12. PT EVALUATION. (2) COPD exacerbation Status: Acute Plan: supplemental oxygen, respiratory treatments, solu-medrol 80mg iv q8h, levaquin 250mg iv hs, azithromycin 250mg iv daily, continue home medications, continue to monitor labs and chest xray (3) Essential hypertension Status: Acute (4) Respiratory failure with hypercapnia Status: Acute Qualifiers: Chronicity: acute on chronic Qualified Code(s): J96.22 - Acute and chronic respiratory failure with hypercapnia Plan: supplemental oxygen, respiratory treatments, solu-medrol 80mg iv q8h, continue home medications, continue to monitor labs and chest xray (5) Hypertension Status: Chronic (6) CHF (congestive heart failure) Status: Chronic (7) Nausea Status: Acute
[2017-08-21] MEDS: LEVAQUIN PREMIX IV 250 MG 250 MG/50 ML BAG IV SCH (20:40)
[2017-08-21] MEDS: ELAVIL PO SCH (20:41)
[2017-08-21] MEDS: ZANAFLEX PO PRN (20:41)
[2017-08-21] MEDS: REQUIP PO SCH (20:42)
[2017-08-21] MEDS: COLACE CAP 100 MG PO SCH (20:42)
[2017-08-21] MEDS: AMBIEN PO PRN (20:42)
[2017-08-21] MEDS: NS 1000 ML 1,000 ML IV SCH (23:53)
[2017-08-22] MEDS: NORCO 10/325 TAB PO SCH ×6 (00:21→20:32)
[2017-08-22] MEDS: DUONEB 0.5 MG/3 MG NEB SCH ×6 (01:49→20:50)
[2017-08-22] MEDS: XANAX PO SCH ×3 (05:22→21:33)
[2017-08-22] MEDS: NEURONTIN CAP 300 MG PO SCH ×3 (05:22→21:42)
[2017-08-22 06:24] LABS: BASOPHILS % (AUTO) 0.2 % (0.2-1.0); HEMATOCRIT 32.2 % (36.0-47.0); HEMOGLOBIN 10.8 g/dL (12.0-16.0); LYMPHOCYTES # (AUTO) 0.3 X10^3/uL (1.3-2.9); MEAN CORPUSCULAR HEMOGLOBIN 31.1 pg (27.0-34.0); MEAN CORPUSCULAR HGB CONC 33.7 g/dL (33.0-35.0); MEAN CORPUSCULAR VOLUME 92.1 fL (80.0-100.0); MEAN PLATELET VOLUME 9.2 fL (7.4-11.0); MONOCYTES # (AUTO) 0.2 x10^3/uL (0.3-0.8); MONOCYTES % (AUTO) 2.3 % (0.0-13.0); NEUTROPHILS % (AUTO) 94.5 % (42.0-75.0); PLATELET COUNT 141 X10^3/uL (150.0-450.0); RED BLOOD COUNT 3.49 X10^6/uL (3.5-5.4); RED CELL DISTRIBUTION WIDTH 14.1 % (11.6-16.5); WHITE BLOOD COUNT 9.6 X10^3/uL (3.6-10.0)
[2017-08-22 06:27] LABS: ALANINE AMINOTRANSFERASE 87 Units/L (12-78); ALBUMIN 2.8 g/dL (3.4-5.0); ALKALINE PHOSPHATASE 79 Units/L (46-116); ASPARTATE AMINO TRANSFERASE 19 Units/L (15-37); BLOOD UREA NITROGEN 28 mg/dL (7-18); CARBON DIOXIDE 34.2 mmol/L (21-32); CHLORIDE 98 mmol/L (98-107); COR NA(FOR HYPERGLY) 139 mmol/L (136-145); CREATININE 1.07 mg/dL (0.55-1.02); SODIUM 138 mmol/L (136-145); TOTAL PROTEIN 5.5 g/dL (6.4-8.2); eGFR BLACK RACES > 60 (>60); eGFR NON BLACK RACES 55 (>60)
[2017-08-22 06:59] LABS: PLATELET MORPHOLOGY COMMENT NORMAL (NORMAL)
[2017-08-22] MEDS: PULMICORT NEB TX 0.5 MG NEB SCH ×3 (09:05→20:50)
[2017-08-22] MEDS: BROVANA IN SCH ×2 (09:05→20:50)
[2017-08-22] MEDS: FLONASE NASAL SPRAY ENOSTRIL SCH (10:23)
[2017-08-22] MEDS: PEPCID 20 MG IV PREMIX* 20 MG/50 ML BAG IV SCH ×2 (10:24→20:35)
[2017-08-22] MEDS: ALDACTONE TAB 25 MG PO SCH (10:25)
[2017-08-22] MEDS: ZANTAC PO SCH ×2 (10:25→20:32)
[2017-08-22] MEDS: SINGULAIR TAB 10 MG PO SCH (10:25)
[2017-08-22] MEDS: CARDIZEM CD 240 MG PO SCH (10:26)
[2017-08-22] MEDS: LASIX IVP SCH ×2 (10:29→20:33)
[2017-08-22] MEDS: PROTONIX INJ 40 MG VIAL IVP SCH (10:29)
[2017-08-22] MEDS: NICOTINE PATCH TD SCH (10:29)
[2017-08-22] MEDS: SNACK - Diabetic Appropriate PO SCH ×2 (10:30→21:41)
[2017-08-22] MEDS ORDERED: NS 100 ML IV 100 ML IV ONE ×2 (11:57→20:52)
[2017-08-22] MEDS ORDERED: DECADRON INJ PRESERVATIVE-FREE IM ONE ×2 (11:57→20:44)
[2017-08-22] MEDS: ZOFRAN INJ 4 MG VIAL 16 MG, ATIVAN INJ 2 MG VIAL 1 MG, DECADRON INJ 10 MG in NS 50 ML I... IV PRN ×2 (12:00→21:03)
[2017-08-22] MEDS ORDERED: DULCOLAX SUPPOSITORY 10 MG RECTAL ONE (15:59)
[2017-08-22] MEDS: COLACE CAP 100 MG PO SCH (20:31)
[2017-08-22] MEDS: ELAVIL PO SCH (20:33)
[2017-08-22] MEDS: REQUIP PO SCH (20:33)
[2017-08-22] MEDS: LEVAQUIN PREMIX IV 250 MG 250 MG/50 ML BAG IV SCH (20:34)
[2017-08-22] MEDS ORDERED: ATIVAN INJ 2 MG VIAL ONE (20:45)
[2017-08-22] MEDS: HumuLIN R SC PRN (21:11)
[2017-08-22] MEDS: NS 1000 ML 1,000 ML IV SCH (23:14)
[2017-08-23] MEDS: NORCO 10/325 TAB PO SCH ×6 (00:25→22:08)
[2017-08-23] MEDS: PHENERGAN TAB 25 MG PO PRN (03:48)
[2017-08-23] MEDS: XANAX PO SCH ×3 (05:01→21:53)
[2017-08-23] MEDS: NEURONTIN CAP 300 MG PO SCH ×3 (05:01→21:54)
[2017-08-23 05:09] LABS: BASOPHILS % (AUTO) 0 % (0.2-1.0); HEMATOCRIT 33.6 % (36.0-47.0); HEMOGLOBIN 11.3 g/dL (12.0-16.0); LYMPHOCYTES # (AUTO) 0.3 X10^3/uL (1.3-2.9); LYMPHOCYTES % (AUTO) 3.2 % (21.0-51.0); MEAN CORPUSCULAR HEMOGLOBIN 30.6 pg (27.0-34.0); MEAN CORPUSCULAR HGB CONC 33.5 g/dL (33.0-35.0); MEAN CORPUSCULAR VOLUME 91.2 fL (80.0-100.0); MEAN PLATELET VOLUME 8.7 fL (7.4-11.0); MONOCYTES # (AUTO) 0.3 x10^3/uL (0.3-0.8); MONOCYTES % (AUTO) 2.8 % (0.0-13.0); NEUTROPHILS # (AUTO) 10.2 x10^3/uL (2.2-4.8); PLATELET COUNT 153 X10^3/uL (150.0-450.0); RED BLOOD COUNT 3.69 X10^6/uL (3.5-5.4); WHITE BLOOD COUNT 10.8 X10^3/uL (3.6-10.0)
[2017-08-23 05:20] LABS: ALBUMIN 2.9 g/dL (3.4-5.0); CALCIUM 8.1 mg/dL (8.5-10.1); CARBON DIOXIDE 35.1 mmol/L (21-32); CREATININE 1.19 mg/dL (0.55-1.02); TOTAL PROTEIN 5.7 g/dL (6.4-8.2)
[2017-08-23] MEDS: DUONEB 0.5 MG/3 MG NEB SCH ×5 (05:25→20:15)
[2017-08-23 06:44] LABS: PLATELET MORPHOLOGY COMMENT NORMAL (NORMAL)
[2017-08-23] MEDS: BROVANA IN SCH ×2 (08:51→20:15)
[2017-08-23] MEDS: PULMICORT NEB TX 0.5 MG NEB SCH ×2 (08:51→20:15)
[2017-08-23] MEDS: PROTONIX INJ 40 MG VIAL IVP SCH (09:20)
[2017-08-23] MEDS: SINGULAIR TAB 10 MG PO SCH (09:20)
[2017-08-23] MEDS: ZANTAC PO SCH ×2 (09:20→21:54)
[2017-08-23] MEDS: LASIX IVP SCH ×2 (09:20→21:54)
[2017-08-23] MEDS: CARDIZEM CD 240 MG PO SCH (09:21)
[2017-08-23] MEDS: NICOTINE PATCH TD SCH (09:21)
[2017-08-23] MEDS: ALDACTONE TAB 25 MG PO SCH (09:21)
[2017-08-23] MEDS: PEPCID 20 MG IV PREMIX* 20 MG/50 ML BAG IV SCH ×2 (09:21→21:49)
[2017-08-23] MEDS: FLONASE NASAL SPRAY ENOSTRIL SCH (09:56)
[2017-08-23] MEDS: ZOFRAN INJ 4 MG VIAL 16 MG, ATIVAN INJ 2 MG VIAL 1 MG, DECADRON INJ 10 MG in NS 50 ML I... IV PRN (14:21)
--- NOTE | 2017-08-23 14:44 | PCM.PROG ---
Progress Note - Progress Note for Day of Date: 08/23/17 - Subjective Subjective: WAS ADMITTED FOR RESPIRATORY FAILURE WITH HYPERCAPNIA. TODAY, SHE IS ALERT AND ORIENED, LYING IN BED ON MORNING ROUNDS. PT VERBALIZED IMPROVING MOBILITY. IMPROVING RESP ILLNESS. PT HAS IMPROVED LOWER EXTREMITY EDEMA AND IMPROVING RHONCHI. PT CONTINUES TO USE SUPPLEMENTAL O2 AND JET NEBS, PHYSICAL THERAPY CONTINUED. CASE MANAGEMENT TO ASSESS FOR SWING BED. WILL REPEAT AM LABS - Past Medical Family Social History Past Med/Fam/Surg Hx: No changes since H&P Allergies: Allergies ketorolac [From Toradol] Allergy (Verified 08/17/17 23:19) nalbuphine [From Nubain] Allergy (Verified 08/17/17 23:19) Penicillins Allergy (Verified 08/17/17 23:19) Sulfa (Sulfonamide Antibiotics) [SULFA] Allergy (Verified 08/17/17 23:19) BETA BLOCKERS Allergy (Uncoded 08/17/17 23:19) - Review of Systems ROS: No change since H&P - Vital Signs and I&O's Vital Signs: Temperature 97.6 F Pulse Rate [Right Radial] 91 Pulse Rate [Left Radial] 103 Pulse Rate 85 Respiratory Rate 20 Blood Pressure [Left Arm] 134/69 Blood Pressure [Right Arm] 135/62 Blood Pressure 97/61 O2 Sat by Pulse Oximetry 98 Intake and Output: Intake & Output 08/21/17 08/22/17 08/23/17 08/24/17 11:59 11:59 11:59 11:59 Intake Total 2545 2594 2450 Output Total 800 2100 2900 Balance 1745 494 -450 - Physical Exam Oriented: Normal Eyes: Normal Ear: Normal Nose: Normal Throat: Normal Respiratory: Generalized, Wheezes. negative: Rhonchi Cardiovascular: Edema (bilateral lower extremity) : Normal Auscultation: Bowel Sounds: Normal, Decreased Tenderness: Epigastric Skin: Decreased Turgur, Bruising (right arm ) Musculoskeletal: Back:Lumbar, Instability Psychiatric: Anxiety Mood Description: Depressed Affect: Anxious, Normal Speech Pattern: Clear, Appropriate - Laboratory and Diagnostics Result Diagrams: 08/23/17 04:45 08/23/17 04:45 Labs: 08/17/17 15:58 Blood Blood Culture - Final 08/17/17 16:05 Blood Blood Culture - Final Laboratory WBC 10.8 X10^3/uL (3.6-10.0) H 08/23/17 04:45 RBC 3.69 X10^6/uL (3.5-5.4) 08/23/17 04:45 Hgb 11.3 g/dL (12.0-16.0) L 08/23/17 04:45 Hct 33.6 % (36.0-47.0) L 08/23/17 04:45 MCV 91.2 fL (80.0-100.0) 08/23/17 04:45 MCH 30.6 pg (27.0-34.0) 08/23/17 04:45 MCHC 33.5 g/dL (33.0-35.0) 08/23/17 04:45 RDW 14.0 % (11.6-16.5) 08/23/17 04:45 Plt Count 153 X10^3/uL (150.0-450.0) 08/23/17 04:45 Plt Count Comment Adequate (ADEQUATE) 08/23/17 04:45 MPV 8.7 fL (7.4-11.0) 08/23/17 04:45 Neut % 94.0 % (42.0-75.0) H 08/23/17 04:45 Lymph % 3.2 % (21.0-51.0) L 08/23/17 04:45 [place] % 2.8 % (0.0-13.0) 08/23/17 04:45 Eos % 0.0 % (0.9-2.9) L 08/23/17 04:45 Baso % 0 % (0.2-1.0) L 08/23/17 04:45 Neut # 10.2 x10^3/uL (2.2-4.8) H 08/23/17 04:45 Lymph # 0.3 X10^3/uL (1.3-2.9) L 08/23/17 04:45 [place] # 0.3 x10^3/uL (0.3-0.8) 08/23/17 04:45 Eos # 0.0 x10^3/uL (0.0-0.2) 08/23/17 04:45 Baso # 0.0 X10^3/uL (0.0-0.1) 08/23/17 04:45 Absolute Nucleated RBC 0.0 /100WBC 08/23/17 04:45 Total Counted 100 08/23/17 04:45 Neutrophils % (Manual) 93 % (39-76) H 08/23/17 04:45 Lymphocytes % (Manual) 5 % (13-43) L 08/23/17 04:45 Monocytes % (Manual) 2 % (4-9) L 08/23/17 04:45 Plt Morphology Comment Normal (NORMAL) 08/23/17 04:45 RBC Morphology Normal (NORMAL) 08/23/17 04:45 INR Target Range - 08/17/17 15:58 INR 0.95 (0.8-1.3) 08/17/17 15:58 PTT 23.5 SECONDS (22.9-36.5) 08/17/17 15:58 PTT Comment - 08/17/17 15:58 Sample Site Lr 08/17/17 17:08 ABG pH 7.420 (7.35-7.45) 08/17/17 17:08 ABG pCO2 65.0 mmHg (35.0-45.0) H* 08/17/17 17:08 ABG pO2 65.0 mmHg (80.0-100.0) L 08/17/17 17:08 ABG HCO3 42.2 mmol/L (22-26) H* 08/17/17 17:08 ABG O2 Saturation 93.0 % (90-100) 08/17/17 17:08 ABG Base Excess 14.8 mmol/L (-2.0-2.0) H 08/17/17 17:08 Sameer Test Pos 08/17/17 17:08 A-a Gradient 82.0 mmHg 08/17/17 17:08 FiO2 32.000 08/17/17 17:08 Blood Gas Comments Pt baltazar well. cdn 08/17/17 17:08 Sodium 140 mmol/L (136-145) 08/23/17 04:45 Corrected Sodium 142 mmol/L (136-145) 08/23/17 04:45 Potassium 3.9 mmol/L (3.5-5.1) 08/23/17 04:45 Chloride 100 mmol/L (98-107) 08/23/17 04:45 Carbon Dioxide 35.1 mmol/L (21-32) H 08/23/17 04:45 BUN 29 mg/dL (7-18) H 08/23/17 04:45 Creatinine 1.19 mg/dL (0.55-1.02) H 08/23/17 04:45 Est GFR (MDRD) Af Amer 59 (>60) 08/23/17 04:45 Est GFR (MDRD) Non-Af 49 (>60) L 08/23/17 04:45 Glucose 181 mg/dL (65-99) H 08/23/17 04:45 POC Glucose (mg/dL) 185 mg/dL (65-99) H 08/23/17 11:37 Calcium 8.1 mg/dL (8.5-10.1) L 08/23/17 04:45 Corrected Calcium 9.0 mg/dL (8.5-10.1) 08/23/17 04:45 Magnesium 2.1 mg/dL (1.7-2.9) 08/17/17 15:58 Total Bilirubin 0.30 mg/dL (0.2-1.0) 08/23/17 04:45 AST 16 Units/L (15-37) 08/23/17 04:45 ALT 79 Units/L (12-78) H 08/23/17 04:45 Alkaline Phosphatase 92 Units/L (46-116) 08/23/17 04:45 Creatine Kinase 73 Units/L (26-192) 08/17/17 15:58 CK-MB (CK-2) 1.2 ng/mL (0-4.0) 08/17/17 15:58 CK/CKMB % Calc 1.6 % (<4) 08/17/17 15:58 Troponin I < 0.02 ng/mL (0-1.5) 08/17/17 15:58 Total Protein 5.7 g/dL (6.4-8.2) L 08/23/17 04:45 Albumin 2.9 g/dL (3.4-5.0) L 08/23/17 04:45 Globulin 2.8 g/dL (2.5-4.5) 08/23/17 04:45 Albumin/Globulin Ratio 1.0 Ratio (1.1-2.1) L 08/23/17 04:45 Specimen Type Catherized urine 08/17/17 14:19 Urine Color Yellow (YELLOW) 08/17/17 14:19 Urine Appearance Clear (CLEAR) 08/17/17 14:19 Urine pH 5.0 (5.0 - 8.0) 08/17/17 14:19 Ur Specific [place] 1.020 (1.000-1.030) 08/17/17 14:19 Urine Protein Negative (NEGATIVE) 08/17/17 14:19 Urine Glucose (UA) Negative (NEGATIVE) 08/17/17 14:19 Urine Ketones Negative (NEGATIVE) 08/17/17 14:19 Urine Occult Blood 2+ (NEGATIVE) 08/17/17 14:19 Urine Nitrite Negative (NEGATIVE) 08/17/17 14:19 Urine Bilirubin Negative (NEGATIVE) 08/17/17 14:19 Urine Urobilinogen Normal (NORMAL) 08/17/17 14:19 Ur Leukocyte Esterase Negative (NEGATIVE) 08/17/17 14:19 Urine RBC Rare /HPF (NEGATIVE) 08/17/17 14:19 Urine WBC Rare /HPF (NEGATIVE) 08/17/17 14:19 Ur Squamous Epith Cells Negative /HPF (NEGATIVE) 08/17/17 14:19 Urine Bacteria Negative /HPF (NEGATIVE) 08/17/17 14:19 Ur Culture Indicated? No/not indicated 08/17/17 14:19 Urine Opiates Screen Positive (NEG=<300) A 08/18/17 12:48 Urine Methadone Screen Negative (NEG=<300) 08/18/17 12:48 Ur Barbiturates Screen Negative (NEG=<200) 08/18/17 12:48 Ur Phencyclidine Scrn Negative (NEG=<25) 08/18/17 12:48 Ur Amphetamines Screen Negative (NEG=<1000) 08/18/17 12:48 U Benzodiazepines Scrn Positive (NEG=<200) A 08/18/17 12:48 Urine Cocaine Screen Negative (NEG=<300) 08/18/17 12:48 U Marijuana (THC) Screen Negative (NEG=<50) 08/18/17 12:48 - Plan (1) Weakness generalized Status: Acute Plan: CONTINUE RESP THERAPY, SUPPLEMENTAL O2. AM LABS. PT CONTINUED, CASE MANAGEMENT CONSULT WE RECOMMEND SWING BED FOR PT/REHAB (2) COPD exacerbation Status: Acute Plan: supplemental oxygen, respiratory treatments (3) Essential hypertension Status: Acute (4) Respiratory failure with hypercapnia Status: Acute Qualifiers: Chronicity: acute on chronic Qualified Code(s): J96.22 - Acute and chronic respiratory failure with hypercapnia Plan: supplemental oxygen, respiratory treatments, solu-medrol 80mg iv q8h, continue home medications, continue to monitor labs and chest xray (5) Hypertension Status: Chronic (6) CHF (congestive heart failure) Status: Chronic Plan: BP CONTROL, I & OS (7) Nausea Status: Acute
[2017-08-23] MEDS: LEVAQUIN PREMIX IV 250 MG 250 MG/50 ML BAG IV SCH (21:48)
[2017-08-23] MEDS: AMBIEN PO PRN (21:53)
[2017-08-23] MEDS: TESSALON PERLES PO PRN (21:53)
[2017-08-23] MEDS: COLACE CAP 100 MG PO SCH (21:54)
[2017-08-23] MEDS: ELAVIL PO SCH (21:54)
[2017-08-23] MEDS: REQUIP PO SCH (21:54)
[2017-08-23] MEDS: ZANAFLEX PO PRN (21:54)
[2017-08-23] MEDS: SNACK - Diabetic Appropriate PO SCH (21:55)
[2017-08-23] MEDS: HumuLIN R SC PRN (21:57)
[2017-08-23] MEDS: NS 1000 ML 1,000 ML IV SCH (23:08)
[2017-08-24] MEDS: DUONEB 0.5 MG/3 MG NEB SCH ×6 (00:14→21:17)
[2017-08-24] MEDS: NORCO 10/325 TAB PO SCH ×6 (02:49→19:58)
[2017-08-24] MEDS: XANAX PO SCH ×3 (06:03→22:41)
[2017-08-24] MEDS: NEURONTIN CAP 300 MG PO SCH ×3 (06:03→22:40)
[2017-08-24 06:09] LABS: BASOPHILS % (AUTO) 0.1 % (0.2-1.0); HEMATOCRIT 33.2 % (36.0-47.0); LYMPHOCYTES # (AUTO) 0.4 X10^3/uL (1.3-2.9); LYMPHOCYTES % (AUTO) 4.4 % (21.0-51.0); MEAN CORPUSCULAR HEMOGLOBIN 30.7 pg (27.0-34.0); MEAN CORPUSCULAR HGB CONC 33.3 g/dL (33.0-35.0); MEAN CORPUSCULAR VOLUME 92.2 fL (80.0-100.0); MEAN PLATELET VOLUME 8.8 fL (7.4-11.0); MONOCYTES # (AUTO) 0.4 x10^3/uL (0.3-0.8); MONOCYTES % (AUTO) 3.8 % (0.0-13.0); NEUTROPHILS % (AUTO) 91.7 % (42.0-75.0); PLATELET COUNT 147 X10^3/uL (150.0-450.0); WHITE BLOOD COUNT 9.8 X10^3/uL (3.6-10.0)
[2017-08-24 06:29] LABS: ALANINE AMINOTRANSFERASE 71 Units/L (12-78); ALBUMIN 2.9 g/dL (3.4-5.0); ALKALINE PHOSPHATASE 78 Units/L (46-116); ASPARTATE AMINO TRANSFERASE 16 Units/L (15-37); BLOOD UREA NITROGEN 28 mg/dL (7-18); CARBON DIOXIDE 37.3 mmol/L (21-32); CHLORIDE 99 mmol/L (98-107); COR CA(FOR HYPOALB) 8.9 mg/dL (8.5-10.1); COR NA(FOR HYPERGLY) 139 mmol/L (136-145); CREATININE 1.04 mg/dL (0.55-1.02); SODIUM 138 mmol/L (136-145); TOTAL PROTEIN 5.6 g/dL (6.4-8.2); eGFR BLACK RACES > 60 (>60); eGFR NON BLACK RACES 57 (>60)
[2017-08-24 07:07] LABS: PLATELET MORPHOLOGY COMMENT NORMAL (NORMAL)
[2017-08-24] MEDS: LASIX IVP SCH ×2 (08:41→20:01)
[2017-08-24] MEDS: PROTONIX INJ 40 MG VIAL IVP SCH (08:41)
[2017-08-24] MEDS: PEPCID 20 MG IV PREMIX* 20 MG/50 ML BAG IV SCH ×2 (08:41→20:01)
[2017-08-24] MEDS: ZANTAC PO SCH ×2 (08:42→20:00)
[2017-08-24] MEDS: ALDACTONE TAB 25 MG PO SCH (08:43)
[2017-08-24] MEDS: NICOTINE PATCH TD SCH (08:43)
[2017-08-24] MEDS: CARDIZEM CD 240 MG PO SCH (08:43)
[2017-08-24] MEDS: FLONASE NASAL SPRAY ENOSTRIL SCH (08:44)
[2017-08-24] MEDS: SINGULAIR TAB 10 MG PO SCH (08:47)
[2017-08-24] MEDS: PULMICORT NEB TX 0.5 MG NEB SCH ×2 (09:40→21:17)
[2017-08-24] MEDS: BROVANA IN SCH ×2 (09:40→21:21)
[2017-08-24] MEDS: SNACK - Diabetic Appropriate PO SCH (19:51)
[2017-08-24] MEDS: TESSALON PERLES PO PRN (19:58)
[2017-08-24] MEDS: ZANAFLEX PO PRN (19:58)
[2017-08-24] MEDS: PHENERGAN TAB 25 MG PO PRN (19:59)
[2017-08-24] MEDS: COLACE CAP 100 MG PO SCH (20:00)
[2017-08-24] MEDS: ELAVIL PO SCH (20:01)
[2017-08-24] MEDS: LEVAQUIN PREMIX IV 250 MG 250 MG/50 ML BAG IV SCH (20:01)
[2017-08-24] MEDS: REQUIP PO SCH (20:01)
[2017-08-24] MEDS: AMBIEN PO PRN (20:04)
[2017-08-24] MEDS: ROBITUSSIN DM PO PRN (20:40)
[2017-08-24] MEDS: NS 1000 ML 1,000 ML IV SCH (22:41)
[2017-08-25] MEDS: NORCO 10/325 TAB PO SCH ×6 (00:07→21:11)
[2017-08-25] MEDS: DUONEB 0.5 MG/3 MG NEB SCH ×6 (01:07→21:59)
[2017-08-25] MEDS: NEURONTIN CAP 300 MG PO SCH ×3 (05:00→21:15)
[2017-08-25] MEDS: XANAX PO SCH ×3 (05:01→21:17)
[2017-08-25 06:13] LABS: BASOPHILS % (AUTO) 0.1 % (0.2-1.0); EOSINOPHILS % (AUTO) 0.3 % (0.9-2.9); HEMATOCRIT 34.4 % (36.0-47.0); HEMOGLOBIN 11.5 g/dL (12.0-16.0); LYMPHOCYTES # (AUTO) 1.3 X10^3/uL (1.3-2.9); LYMPHOCYTES % (AUTO) 16.4 % (21.0-51.0); MEAN CORPUSCULAR HEMOGLOBIN 30.7 pg (27.0-34.0); MEAN CORPUSCULAR HGB CONC 33.3 g/dL (33.0-35.0); MEAN CORPUSCULAR VOLUME 92.4 fL (80.0-100.0); MEAN PLATELET VOLUME 8.9 fL (7.4-11.0); MONOCYTES # (AUTO) 0.4 x10^3/uL (0.3-0.8); MONOCYTES % (AUTO) 5.1 % (0.0-13.0); NEUTROPHILS # (AUTO) 6.2 x10^3/uL (2.2-4.8); NEUTROPHILS % (AUTO) 78.1 % (42.0-75.0); PLATELET COUNT 148 X10^3/uL (150.0-450.0); RED BLOOD COUNT 3.73 X10^6/uL (3.5-5.4); RED CELL DISTRIBUTION WIDTH 14.3 % (11.6-16.5)
[2017-08-25 06:23] LABS: ALANINE AMINOTRANSFERASE 63 Units/L (12-78); ALBUMIN 2.9 g/dL (3.4-5.0); ALKALINE PHOSPHATASE 86 Units/L (46-116); ASPARTATE AMINO TRANSFERASE 16 Units/L (15-37); BLOOD UREA NITROGEN 34 mg/dL (7-18); CALCIUM 8.1 mg/dL (8.5-10.1); CHLORIDE 99 mmol/L (98-107); COR NA(FOR HYPERGLY) 140 mmol/L (136-145); CREATININE 1.16 mg/dL (0.55-1.02); SODIUM 140 mmol/L (136-145); TOTAL PROTEIN 5.6 g/dL (6.4-8.2); eGFR BLACK RACES > 60 (>60); eGFR NON BLACK RACES 50 (>60)
[2017-08-25 06:49] LABS: PLATELET MORPHOLOGY COMMENT NORMAL (NORMAL)
[2017-08-25 07:05] LABS: CARBON DIOXIDE 40.3 mmol/L (21-32)
[2017-08-25] MEDS: PULMICORT NEB TX 0.5 MG NEB SCH ×2 (08:43→21:59)
[2017-08-25] MEDS: BROVANA IN SCH ×2 (08:43→21:59)
[2017-08-25] MEDS: ZANTAC PO SCH ×2 (08:48→21:15)
[2017-08-25] MEDS: CARDIZEM CD 240 MG PO SCH (08:48)
[2017-08-25] MEDS: NICOTINE PATCH TD SCH (08:48)
[2017-08-25] MEDS: LASIX IVP SCH ×2 (08:48→21:18)
[2017-08-25] MEDS: PEPCID 20 MG IV PREMIX* 20 MG/50 ML BAG IV SCH ×2 (08:48→21:12)
[2017-08-25] MEDS: SINGULAIR TAB 10 MG PO SCH (08:49)
[2017-08-25] MEDS: PROTONIX INJ 40 MG VIAL IVP SCH (08:49)
[2017-08-25] MEDS: ALDACTONE TAB 25 MG PO SCH (08:49)
[2017-08-25] MEDS: FLONASE NASAL SPRAY ENOSTRIL SCH (08:52)
[2017-08-25] MEDS: LEVAQUIN PREMIX IV 250 MG 250 MG/50 ML BAG IV SCH (21:14)
[2017-08-25] MEDS: ZANAFLEX PO PRN (21:16)
[2017-08-25] MEDS: ELAVIL PO SCH (21:16)
[2017-08-25] MEDS: TESSALON PERLES PO PRN (21:16)
[2017-08-25] MEDS: COLACE CAP 100 MG PO SCH (21:17)
[2017-08-25] MEDS: AMBIEN PO PRN (21:17)
[2017-08-25] MEDS: REQUIP PO SCH (21:17)
[2017-08-25] MEDS: PHENERGAN TAB 25 MG PO PRN (21:17)
[2017-08-25] MEDS: SNACK - Diabetic Appropriate PO SCH (21:18)
[2017-08-25] MEDS: ROBITUSSIN DM PO PRN (21:18)
[2017-08-25] MEDS: HumuLIN R SC PRN (21:25)
[2017-08-25] MEDS: CORTISPORIN OTIC SUSP RIGHT EAR SCH (21:47)
[2017-08-25] MEDS: NS 1000 ML 1,000 ML IV SCH (23:42)
[2017-08-26] MEDS: NORCO 10/325 TAB PO SCH ×5 (00:05→15:02)
[2017-08-26] MEDS: DUONEB 0.5 MG/3 MG NEB SCH ×4 (01:24→11:59)
[2017-08-26] MEDS: XANAX PO SCH ×2 (05:01→15:02)
[2017-08-26] MEDS: NEURONTIN CAP 300 MG PO SCH ×2 (05:01→15:01)
[2017-08-26 05:41] LABS: BASOPHILS % (AUTO) 0.3 % (0.2-1.0); EOSINOPHILS # (AUTO) 0.2 x10^3/uL (0.0-0.2); EOSINOPHILS % (AUTO) 2.1 % (0.9-2.9); HEMOGLOBIN 12.4 g/dL (12.0-16.0); LYMPHOCYTES # (AUTO) 1.9 X10^3/uL (1.3-2.9); LYMPHOCYTES % (AUTO) 17.8 % (21.0-51.0); MEAN CORPUSCULAR HEMOGLOBIN 30.2 pg (27.0-34.0); MEAN CORPUSCULAR HGB CONC 32.7 g/dL (33.0-35.0); MEAN CORPUSCULAR VOLUME 92.6 fL (80.0-100.0); MEAN PLATELET VOLUME 9.2 fL (7.4-11.0); MONOCYTES # (AUTO) 0.5 x10^3/uL (0.3-0.8); MONOCYTES % (AUTO) 4.6 % (0.0-13.0); NEUTROPHILS # (AUTO) 8.2 x10^3/uL (2.2-4.8); NEUTROPHILS % (AUTO) 75.2 % (42.0-75.0); PLATELET COUNT 161 X10^3/uL (150.0-450.0); RED CELL DISTRIBUTION WIDTH 14.6 % (11.6-16.5); WHITE BLOOD COUNT 10.9 X10^3/uL (3.6-10.0)
[2017-08-26 05:51] LABS: ALANINE AMINOTRANSFERASE 77 Units/L (12-78); ALBUMIN 3.3 g/dL (3.4-5.0); ALKALINE PHOSPHATASE 114 Units/L (46-116); ASPARTATE AMINO TRANSFERASE 26 Units/L (15-37); BLOOD UREA NITROGEN 28 mg/dL (7-18); CALCIUM 8.4 mg/dL (8.5-10.1); CARBON DIOXIDE 34.4 mmol/L (21-32); CHLORIDE 97 mmol/L (98-107); CREATININE 1.29 mg/dL (0.55-1.02); SODIUM 140 mmol/L (136-145); TOTAL PROTEIN 6.5 g/dL (6.4-8.2); eGFR BLACK RACES 54 (>60); eGFR NON BLACK RACES 44 (>60)
[2017-08-26 07:04] LABS: BAND NEUTROPHILS % 4 % (0-10); PLATELET MORPHOLOGY COMMENT NORMAL (NORMAL)
[2017-08-26] MEDS: PULMICORT NEB TX 0.5 MG NEB SCH (08:39)
[2017-08-26] MEDS: BROVANA IN SCH (08:39)
[2017-08-26] MEDS: PEPCID 20 MG IV PREMIX* 20 MG/50 ML BAG IV SCH (09:20)
[2017-08-26] MEDS: CARDIZEM CD 240 MG PO SCH (09:20)
[2017-08-26] MEDS: NICOTINE PATCH TD SCH (09:20)
[2017-08-26] MEDS: SINGULAIR TAB 10 MG PO SCH (09:20)
[2017-08-26] MEDS: ALDACTONE TAB 25 MG PO SCH (09:21)
[2017-08-26] MEDS: PROTONIX INJ 40 MG VIAL IVP SCH (09:21)
[2017-08-26] MEDS: LASIX IVP SCH (09:21)
[2017-08-26] MEDS: CORTISPORIN OTIC SUSP RIGHT EAR SCH ×2 (09:25→15:02)
[2017-08-26] MEDS: FLONASE NASAL SPRAY ENOSTRIL SCH (09:26)
[2017-08-26] MEDS ORDERED: DULCOLAX SUPPOSITORY 10 MG RECTAL SCH (11:00)
[2017-08-26] MEDS: ZOFRAN INJ 4 MG VIAL IVP PRN (12:05)
[2017-08-26] MEDS: ZANTAC PO SCH (12:06)
--- NOTE | 2017-08-26 13:42 | PCM.PROG ---
Progress Note - Progress Note for Day of Date: 08/26/17 - Subjective Subjective: WAS ADMITTED FOR RESPIRATORY FAILURE WITH HYPERCAPNIA. TODAY, SHE IS ALERT AND ORIENED, COMPLAINS OF CONSTIPATION. PT VERBALIZED IMPROVING MOBILITY. IMPROVING RESP ILLNESS. PT HAS IMPROVED LOWER EXTREMITY EDEMA AND IMPROVING RHONCHI. PT CONTINUES TO USE SUPPLEMENTAL O2 AND JET NEBS, PHYSICAL THERAPY CONTINUED. CASE MANAGEMENT TO ASSESS FOR SWING BED. - Past Medical Family Social History Past Med/Fam/Surg Hx: No changes since H&P Allergies: Allergies ketorolac [From Toradol] Allergy (Verified 08/17/17 23:19) nalbuphine [From Nubain] Allergy (Verified 08/17/17 23:19) Penicillins Allergy (Verified 08/17/17 23:19) Sulfa (Sulfonamide Antibiotics) [SULFA] Allergy (Verified 08/17/17 23:19) BETA BLOCKERS Allergy (Uncoded 08/17/17 23:19) - Review of Systems ROS: No change since H&P - Vital Signs and I&O's Vital Signs: Temperature 97.6 F Pulse Rate [Right Radial] 107 Pulse Rate [Left Radial] 99 Pulse Rate 102 Respiratory Rate 22 Blood Pressure [Left Arm] 118/58 Blood Pressure [Right Arm] 122/58 Blood Pressure 97/61 O2 Sat by Pulse Oximetry 96 Intake and Output: Intake & Output 08/24/17 08/25/17 08/26/17 08/27/17 11:59 11:59 11:59 11:59 Intake Total 1962 1140 3046 Balance 1962 1140 3046 - Physical Exam Oriented: Normal Eyes: Normal Ear: Normal Nose: Normal Throat: Normal Respiratory: Wheezes (MILD LOWER EXP WHEEZES) Cardiovascular: Edema (bilateral lower extremity) : Normal Auscultation: Bowel Sounds: Normal, Decreased Tenderness: Epigastric Skin: Decreased Turgur, Bruising (right arm ) Musculoskeletal: Back:Lumbar, Instability Psychiatric: Anxiety Mood Description: Depressed Affect: Anxious, Normal Speech Pattern: Clear, Appropriate - Laboratory and Diagnostics Result Diagrams: 08/26/17 04:53 08/26/17 04:53 Labs: 08/17/17 15:58 Blood Blood Culture - Final 08/17/17 16:05 Blood Blood Culture - Final Laboratory WBC 10.9 X10^3/uL (3.6-10.0) H 08/26/17 04:53 RBC 4.10 X10^6/uL (3.5-5.4) 08/26/17 04:53 Hgb 12.4 g/dL (12.0-16.0) 08/26/17 04:53 Hct 38.0 % (36.0-47.0) 08/26/17 04:53 MCV 92.6 fL (80.0-100.0) 08/26/17 04:53 MCH 30.2 pg (27.0-34.0) 08/26/17 04:53 MCHC 32.7 g/dL (33.0-35.0) L 08/26/17 04:53 RDW 14.6 % (11.6-16.5) 08/26/17 04:53 Plt Count 161 X10^3/uL (150.0-450.0) 08/26/17 04:53 Plt Count Comment Adequate (ADEQUATE) 08/26/17 04:53 MPV 9.2 fL (7.4-11.0) 08/26/17 04:53 Neut % 75.2 % (42.0-75.0) H 08/26/17 04:53 Lymph % 17.8 % (21.0-51.0) L 08/26/17 04:53 [place] % 4.6 % (0.0-13.0) 08/26/17 04:53 Eos % 2.1 % (0.9-2.9) 08/26/17 04:53 Baso % 0.3 % (0.2-1.0) 08/26/17 04:53 Neut # 8.2 x10^3/uL (2.2-4.8) H 08/26/17 04:53 Lymph # 1.9 X10^3/uL (1.3-2.9) 08/26/17 04:53 [place] # 0.5 x10^3/uL (0.3-0.8) 08/26/17 04:53 Eos # 0.2 x10^3/uL (0.0-0.2) 08/26/17 04:53 Baso # 0.0 X10^3/uL (0.0-0.1) 08/26/17 04:53 Absolute Nucleated RBC 0.2 /100WBC 08/26/17 04:53 Total Counted 100 08/26/17 04:53 Neutrophils % (Manual) 81 % (39-76) H 08/26/17 04:53 Band Neutrophils % 4 % (0-10) 08/26/17 04:53 Lymphocytes % (Manual) 11 % (13-43) L 08/26/17 04:53 Monocytes % (Manual) 4 % (4-9) 08/26/17 04:53 Eosinophils % (Manual) 1 % (0-6) 08/25/17 04:30 Plt Morphology Comment Normal (NORMAL) 08/26/17 04:53 RBC Morphology Normal (NORMAL) 08/26/17 04:53 INR Target Range - 08/17/17 15:58 INR 0.95 (0.8-1.3) 08/17/17 15:58 PTT 23.5 SECONDS (22.9-36.5) 08/17/17 15:58 PTT Comment - 08/17/17 15:58 Sample Site Lr 08/17/17 17:08 ABG pH 7.420 (7.35-7.45) 08/17/17 17:08 ABG pCO2 65.0 mmHg (35.0-45.0) H* 08/17/17 17:08 ABG pO2 65.0 mmHg (80.0-100.0) L 08/17/17 17:08 ABG HCO3 42.2 mmol/L (22-26) H* 08/17/17 17:08 ABG O2 Saturation 93.0 % (90-100) 08/17/17 17:08 ABG Base Excess 14.8 mmol/L (-2.0-2.0) H 08/17/17 17:08 Sameer Test Pos 08/17/17 17:08 A-a Gradient 82.0 mmHg 08/17/17 17:08 FiO2 32.000 08/17/17 17:08 Blood Gas Comments Pt baltazar well. cdn 08/17/17 17:08 Sodium 140 mmol/L (136-145) 08/26/17 04:53 Corrected Sodium TNP 08/26/17 04:53 Potassium 3.5 mmol/L (3.5-5.1) 08/26/17 04:53 Chloride 97 mmol/L (98-107) L 08/26/17 04:53 Carbon Dioxide 34.4 mmol/L (21-32) H 08/26/17 04:53 BUN 28 mg/dL (7-18) H 08/26/17 04:53 Creatinine 1.29 mg/dL (0.55-1.02) H 08/26/17 04:53 Est GFR (MDRD) Af Amer 54 (>60) L 08/26/17 04:53 Est GFR (MDRD) Non-Af 44 (>60) L 08/26/17 04:53 Glucose 97 mg/dL (65-99) 08/26/17 04:53 POC Glucose (mg/dL) 98 mg/dL (65-99) 08/26/17 11:21 Calcium 8.4 mg/dL (8.5-10.1) L 08/26/17 04:53 Corrected Calcium 9.0 mg/dL (8.5-10.1) 08/26/17 04:53 Magnesium 2.1 mg/dL (1.7-2.9) 08/17/17 15:58 Total Bilirubin 0.40 mg/dL (0.2-1.0) 08/26/17 04:53 AST 26 Units/L (15-37) 08/26/17 04:53 ALT 77 Units/L (12-78) 08/26/17 04:53 Alkaline Phosphatase 114 Units/L (46-116) 08/26/17 04:53 Creatine Kinase 73 Units/L (26-192) 08/17/17 15:58 CK-MB (CK-2) 1.2 ng/mL (0-4.0) 08/17/17 15:58 CK/CKMB % Calc 1.6 % (<4) 08/17/17 15:58 Troponin I < 0.02 ng/mL (0-1.5) 08/17/17 15:58 Total Protein 6.5 g/dL (6.4-8.2) 08/26/17 04:53 Albumin 3.3 g/dL (3.4-5.0) L 08/26/17 04:53 Globulin 3.2 g/dL (2.5-4.5) 08/26/17 04:53 Albumin/Globulin Ratio 1.0 Ratio (1.1-2.1) L 08/26/17 04:53 Specimen Type Catherized urine 08/17/17 14:19 Urine Color Yellow (YELLOW) 08/17/17 14:19 Urine Appearance Clear (CLEAR) 08/17/17 14:19 Urine pH 5.0 (5.0 - 8.0) 08/17/17 14:19 Ur Specific [place] 1.020 (1.000-1.030) 08/17/17 14:19 Urine Protein Negative (NEGATIVE) 08/17/17 14:19 Urine Glucose (UA) Negative (NEGATIVE) 08/17/17 14:19 Urine Ketones Negative (NEGATIVE) 08/17/17 14:19 Urine Occult Blood 2+ (NEGATIVE) 08/17/17 14:19 Urine Nitrite Negative (NEGATIVE) 08/17/17 14:19 Urine Bilirubin Negative (NEGATIVE) 08/17/17 14:19 Urine Urobilinogen Normal (NORMAL) 08/17/17 14:19 Ur Leukocyte Esterase Negative (NEGATIVE) 08/17/17 14:19 Urine RBC Rare /HPF (NEGATIVE) 08/17/17 14:19 Urine WBC Rare /HPF (NEGATIVE) 08/17/17 14:19 Ur Squamous Epith Cells Negative /HPF (NEGATIVE) 08/17/17 14:19 Urine Bacteria Negative /HPF (NEGATIVE) 08/17/17 14:19 Ur Culture Indicated? No/not indicated 08/17/17 14:19 Urine Opiates Screen Positive (NEG=<300) A 08/18/17 12:48 Urine Methadone Screen Negative (NEG=<300) 08/18/17 12:48 Ur Barbiturates Screen Negative (NEG=<200) 08/18/17 12:48 Ur Phencyclidine Scrn Negative (NEG=<25) 08/18/17 12:48 Ur Amphetamines Screen Negative (NEG=<1000) 08/18/17 12:48 U Benzodiazepines Scrn Positive (NEG=<200) A 08/18/17 12:48 Urine Cocaine Screen Negative (NEG=<300) 08/18/17 12:48 U Marijuana (THC) Screen Negative (NEG=<50) 08/18/17 12:48 - Plan (1) Weakness generalized Status: Acute Plan: CONTINUE RESP THERAPY, SUPPLEMENTAL O2. AM LABS. PT CONTINUED, CASE MANAGEMENT CONSULT WE RECOMMEND SWING BED FOR PT/REHAB (2) COPD exacerbation Status: Acute Plan: supplemental oxygen, respiratory treatments (3) Essential hypertension Status: Acute Plan: STABLE, CONTINUE TO MONITOR (4) Respiratory failure with hypercapnia Status: Acute Qualifiers: Chronicity: acute on chronic Qualified Code(s): J96.22 - Acute and chronic respiratory failure with hypercapnia Plan: supplemental oxygen, respiratory treatments, continue home medications, continue to monitor labs and chest xray (5) Hypertension Status: Chronic (6) CHF (congestive heart failure) Status: Chronic Plan: BP CONTROL, I & OS (7) Nausea Status: Acute
[2017-08-26 16:48] VITALS: BP 139/64
== END 2017-08-26 16:23 | disposition swing bed (61) | DRG 189 ==
LOC: ER 13:57 → OBS 22:51 → OBSVTOIN 08-19 15:00 → MED/SURG 08-19 17:31
PROVIDERS: ADMIT Internal Medicine; ATTEND Internal Medicine
DX: J96.22 Acute and chronic respiratory failure with hypercapnia (principal); J44.1 Chronic obstructive pulmonary disease with (acute) exacerbation; Z91.81 History of falling; R94.31 Abnormal electrocardiogram [ECG] [EKG]; I10 Essential (primary) hypertension; N18.9 Chronic kidney disease, unspecified; R53.1 Weakness; I50.9 Heart failure, unspecified; R11.2 Nausea with vomiting, unspecified; R60.1 Generalized edema; R26.89 Other abnormalities of gait and mobility
CPT/HCPCS: 36415; 36591; 36600; 51702; 71045; 71046; 80048; 80053; 80307; 81001; 82550; 82553; 82803; 83735; 84484; 85025; 85610; 85730; 87040; 93005; 93010; 94640; 94760; 96365; 96374; 97535; 99231; 99284; A4216; A4222; C9113; Q0169; S0028; G0378; G0434; J0456; J1100; J1815; J1940; J1956; J2060; J2270; J2405; J2920; J2930; J7620; J7626

== ENCOUNTER 2017-08-26 16:23 | Inpatient (IN) | payer OTHER, MEDICAID ==
[2017-08-26] MEDS ORDERED: DUONEB 0.5 MG/3 MG ONE (16:33)
[2017-08-26] MEDS: DUONEB 0.5 MG/3 MG NEB SCH ×2 (16:41→21:11)
[2017-08-26] MEDS ORDERED: ROBITUSSIN DM PO PRN (17:05)
[2017-08-26] MEDS ORDERED: MILK OF MAGNESIA PO PRN (17:06)
[2017-08-26] MEDS ORDERED: ZOFRAN INJ 4 MG VIAL IVP PRN (17:06)
[2017-08-26] MEDS ORDERED: TESSALON PERLES PO PRN (17:06)
[2017-08-26] MEDS: NORCO 10/325 TAB PO SCH ×2 (19:07→21:17)
[2017-08-26] MEDS: PULMICORT NEB TX 0.5 MG NEB SCH (21:11)
[2017-08-26] MEDS: BROVANA IN SCH (21:11)
[2017-08-26] MEDS: ZANTAC PO SCH (21:14)
[2017-08-26] MEDS: NEURONTIN CAP 300 MG PO SCH (21:15)
[2017-08-26] MEDS: REQUIP PO SCH (21:15)
[2017-08-26] MEDS: COLACE CAP 100 MG PO SCH (21:16)
[2017-08-26] MEDS: ELAVIL PO SCH (21:16)
[2017-08-26] MEDS: PHENERGAN TAB 25 MG PO PRN (21:16)
[2017-08-26] MEDS: XANAX PO SCH (21:16)
[2017-08-26] MEDS: AMBIEN PO PRN (21:17)
[2017-08-26] MEDS: ZANAFLEX PO PRN (21:17)
[2017-08-26] MEDS: CORTISPORIN OTIC SUSP RIGHT EAR SCH (21:20)
[2017-08-27] MEDS: DUONEB 0.5 MG/3 MG NEB SCH ×7 (01:32→21:11)
[2017-08-27] MEDS: NORCO 10/325 TAB PO SCH ×6 (01:49→21:06)
[2017-08-27] MEDS: NEURONTIN CAP 300 MG PO SCH ×3 (05:10→21:05)
[2017-08-27] MEDS: XANAX PO SCH ×3 (05:10→21:06)
--- NOTE | 2017-08-27 08:27 | DR.UPDATE ---
H&P Update History and Physical Update: History and Physical reviewed and patient examined. h &p completed on 08/18/2017 no changes Changes noted: NO
[2017-08-27] MEDS: LASIX PO SCH (08:43)
[2017-08-27] MEDS: ZANTAC PO SCH ×2 (08:43→20:44)
[2017-08-27] MEDS: CARDIZEM CD 240 MG PO SCH (08:43)
[2017-08-27] MEDS: SINGULAIR TAB 10 MG PO SCH (08:43)
[2017-08-27] MEDS: ALDACTONE TAB 25 MG PO SCH (08:44)
[2017-08-27] MEDS: NICOTINE PATCH TD SCH (08:44)
[2017-08-27] MEDS: CORTISPORIN OTIC SUSP RIGHT EAR SCH ×4 (08:48→20:44)
[2017-08-27] MEDS: FLONASE NASAL SPRAY ENOSTRIL SCH (08:49)
[2017-08-27] MEDS: PULMICORT NEB TX 0.5 MG NEB SCH ×4 (08:50→21:11)
[2017-08-27] MEDS: BROVANA IN SCH ×3 (08:50→21:09)
[2017-08-27 09:30] VITALS: BMI 47.5
[2017-08-27] MEDS: ZANAFLEX PO PRN (18:16)
[2017-08-27] MEDS: HumuLIN R SC PRN (20:42)
[2017-08-27] MEDS: COLACE CAP 100 MG PO SCH (20:43)
[2017-08-27] MEDS: AMBIEN PO PRN (20:43)
[2017-08-27] MEDS: ELAVIL PO SCH (20:44)
[2017-08-27] MEDS: REQUIP PO SCH (20:44)
[2017-08-28] MEDS: DUONEB 0.5 MG/3 MG NEB SCH ×6 (00:22→20:50)
[2017-08-28] MEDS: ZANAFLEX PO PRN ×2 (02:53→23:41)
[2017-08-28] MEDS: NORCO 10/325 TAB PO SCH ×6 (02:53→21:26)
[2017-08-28] MEDS: NEURONTIN CAP 300 MG PO SCH ×3 (05:41→21:22)
[2017-08-28] MEDS: XANAX PO SCH ×3 (05:41→21:22)
[2017-08-28] MEDS: PULMICORT NEB TX 0.5 MG NEB SCH ×2 (09:15→20:50)
[2017-08-28] MEDS: BROVANA IN SCH ×2 (09:15→20:50)
[2017-08-28] MEDS: SINGULAIR TAB 10 MG PO SCH (09:20)
[2017-08-28] MEDS: LASIX PO SCH (09:20)
[2017-08-28] MEDS: NICOTINE PATCH TD SCH (09:20)
[2017-08-28] MEDS: ALDACTONE TAB 25 MG PO SCH (09:20)
[2017-08-28] MEDS: CARDIZEM CD 240 MG PO SCH (09:21)
[2017-08-28] MEDS: ZANTAC PO SCH ×2 (09:21→21:22)
[2017-08-28] MEDS: CORTISPORIN OTIC SUSP RIGHT EAR SCH ×4 (09:26→21:47)
[2017-08-28] MEDS: FLONASE NASAL SPRAY ENOSTRIL SCH (09:27)
[2017-08-28 17:50] LABS: BILIRUBIN,URINE NEGATIVE (NEGATIVE); BLOOD/HEMOGLOBIN,URINE NEGATIVE (NEGATIVE); GLUCOSE, URINE NEGATIVE (NEGATIVE); KETONES,URINE NEGATIVE (NEGATIVE); LEUKOCYTE ESTERASE ,URINE NEGATIVE (NEGATIVE); NITRITES,URINE NEGATIVE (NEGATIVE); PROTEIN,URINE NEGATIVE (NEGATIVE); UROBILINOGEN,URINE NORMAL (NORMAL)
[2017-08-28 17:59] LABS: APPEARANCE,URINE CLEAR (CLEAR); BACTERIA,URINE NEGATIVE /HPF (NEGATIVE); COLOR,URINE YELLOW (YELLOW); RBC,URINE 0 /HPF (NEGATIVE); SQUAMOUS EPITHELIAL CELL,UR NEGATIVE /HPF (NEGATIVE)
[2017-08-28] MEDS: ELAVIL PO SCH (21:21)
[2017-08-28] MEDS: COLACE CAP 100 MG PO SCH (21:22)
[2017-08-28] MEDS: PHENERGAN TAB 25 MG PO PRN (21:22)
[2017-08-28] MEDS: REQUIP PO SCH (21:22)
[2017-08-28] MEDS: AMBIEN PO PRN (21:23)
[2017-08-29] MEDS: DUONEB 0.5 MG/3 MG NEB SCH ×6 (01:29→21:08)
[2017-08-29] MEDS: NORCO 10/325 TAB PO SCH ×6 (01:34→21:03)
[2017-08-29] MEDS: XANAX PO SCH ×3 (05:01→22:11)
[2017-08-29] MEDS: NEURONTIN CAP 300 MG PO SCH ×3 (05:01→21:02)
[2017-08-29 06:25] LABS: BASOPHILS % (AUTO) 0.4 % (0.2-1.0); EOSINOPHILS # (AUTO) 0.3 x10^3/uL (0.0-0.2); EOSINOPHILS % (AUTO) 4.3 % (0.9-2.9); HEMATOCRIT 32.2 % (36.0-47.0); HEMOGLOBIN 10.7 g/dL (12.0-16.0); LYMPHOCYTES # (AUTO) 1.3 X10^3/uL (1.3-2.9); LYMPHOCYTES % (AUTO) 19.4 % (21.0-51.0); MEAN CORPUSCULAR HEMOGLOBIN 30.8 pg (27.0-34.0); MEAN CORPUSCULAR HGB CONC 33.4 g/dL (33.0-35.0); MEAN CORPUSCULAR VOLUME 92.4 fL (80.0-100.0); MEAN PLATELET VOLUME 8.4 fL (7.4-11.0); MONOCYTES # (AUTO) 0.5 x10^3/uL (0.3-0.8); MONOCYTES % (AUTO) 7.3 % (0.0-13.0); NEUTROPHILS # (AUTO) 4.7 x10^3/uL (2.2-4.8); NEUTROPHILS % (AUTO) 68.6 % (42.0-75.0); PLATELET COUNT 189 X10^3/uL (150.0-450.0); RED BLOOD COUNT 3.48 X10^6/uL (3.5-5.4); RED CELL DISTRIBUTION WIDTH 14.7 % (11.6-16.5); WHITE BLOOD COUNT 6.9 X10^3/uL (3.6-10.0)
[2017-08-29 06:40] LABS: ALANINE AMINOTRANSFERASE 95 Units/L (12-78); ALBUMIN 2.8 g/dL (3.4-5.0); ALKALINE PHOSPHATASE 125 Units/L (46-116); ASPARTATE AMINO TRANSFERASE 35 Units/L (15-37); BLOOD UREA NITROGEN 20 mg/dL (7-18); CALCIUM 9.2 mg/dL (8.5-10.1); CARBON DIOXIDE 35.7 mmol/L (21-32); CHLORIDE 100 mmol/L (98-107); COR CA(FOR HYPOALB) 10.2 mg/dL (8.5-10.1); COR NA(FOR HYPERGLY) 141 mmol/L (136-145); CREATININE 1.07 mg/dL (0.55-1.02); SODIUM 140 mmol/L (136-145); TOTAL PROTEIN 6.1 g/dL (6.4-8.2); eGFR BLACK RACES > 60 (>60); eGFR NON BLACK RACES 55 (>60)
[2017-08-29 07:02] LABS: BAND NEUTROPHILS % 3 % (0-10); PLATELET MORPHOLOGY COMMENT NORMAL (NORMAL)
--- NOTE | 2017-08-29 08:42 | PCM.PROG ---
Progress Note - Progress Note for Day of Date: 08/29/17 - Subjective Subjective: 62 WF ADMIT TO SWING BED FOR PT REHAB FOR GENERALIZED WEAKNESS. PT NOT COOPERATING WITH PT WELL, SHOWING IMPROVEMENT IN MOBILITY. PT HAS CHRONIC RESP FAILURE, CONTINUOUS O2. LABS STABLE THIS AM. - Past Medical Family Social History Past Med/Fam/Surg Hx: No changes since H&P Allergies: Allergies ketorolac [From Toradol] Allergy (Verified 08/17/17 23:19) nalbuphine [From Nubain] Allergy (Verified 08/17/17 23:19) Penicillins Allergy (Verified 08/17/17 23:19) Sulfa (Sulfonamide Antibiotics) [SULFA] Allergy (Verified 08/17/17 23:19) BETA BLOCKERS Allergy (Uncoded 08/17/17 23:19) - Review of Systems ROS: No change since H&P - Vital Signs and I&O's Vital Signs: Temperature 97.9 F Pulse Rate [Right Brachial] 112 Pulse Rate [Left Brachial] 88 Pulse Rate [Apical] 102 Pulse Rate 106 Respiratory Rate 20 Blood Pressure [Left Arm] 94/55 Blood Pressure [Right Arm] 128/57 Blood Pressure 118/58 O2 Sat by Pulse Oximetry 98 Intake and Output: Intake & Output 08/26/17 08/27/17 08/28/17 08/29/17 11:59 11:59 11:59 11:59 Intake Total 966 447 5780 Output Total 400 2500 Balance 468 529 6086 - Physical Exam Oriented: Normal Eyes: Normal Ear: Normal Nose: Normal Throat: Normal Respiratory: Diminished Cardiovascular: Normal : Normal Auscultation: Bowel Sounds: Normal Palpation: Normal Tenderness: Normal Skin: Normal Musculoskeletal: Back:Thoracic, Back:Lumbar Psychiatric: Anxiety Affect: Anxious Speech Pattern: Clear, Appropriate - Laboratory and Diagnostics Result Diagrams: 08/29/17 06:10 08/29/17 06:10 Labs: Laboratory WBC 6.9 X10^3/uL (3.6-10.0) 08/29/17 06:10 RBC 3.48 X10^6/uL (3.5-5.4) L 08/29/17 06:10 Hgb 10.7 g/dL (12.0-16.0) L 08/29/17 06:10 Hct 32.2 % (36.0-47.0) L 08/29/17 06:10 MCV 92.4 fL (80.0-100.0) 08/29/17 06:10 MCH 30.8 pg (27.0-34.0) 08/29/17 06:10 MCHC 33.4 g/dL (33.0-35.0) 08/29/17 06:10 RDW 14.7 % (11.6-16.5) 08/29/17 06:10 Plt Count 189 X10^3/uL (150.0-450.0) 08/29/17 06:10 Plt Count Comment Adequate (ADEQUATE) 08/29/17 06:10 MPV 8.4 fL (7.4-11.0) 08/29/17 06:10 Neut % 68.6 % (42.0-75.0) 08/29/17 06:10 Lymph % 19.4 % (21.0-51.0) L 08/29/17 06:10 [place] % 7.3 % (0.0-13.0) 08/29/17 06:10 Eos % 4.3 % (0.9-2.9) H 08/29/17 06:10 Baso % 0.4 % (0.2-1.0) 08/29/17 06:10 Neut # 4.7 x10^3/uL (2.2-4.8) 08/29/17 06:10 Lymph # 1.3 X10^3/uL (1.3-2.9) 08/29/17 06:10 [place] # 0.5 x10^3/uL (0.3-0.8) 08/29/17 06:10 Eos # 0.3 x10^3/uL (0.0-0.2) H 08/29/17 06:10 Baso # 0.0 X10^3/uL (0.0-0.1) 08/29/17 06:10 Absolute Nucleated RBC 0.0 /100WBC 08/29/17 06:10 Total Counted 100 08/29/17 06:10 Neutrophils % (Manual) 68 % (39-76) 08/29/17 06:10 Band Neutrophils % 3 % (0-10) 08/29/17 06:10 Lymphocytes % (Manual) 19 % (13-43) 08/29/17 06:10 Monocytes % (Manual) 8 % (4-9) 08/29/17 06:10 Eosinophils % (Manual) 2 % (0-6) 08/29/17 06:10 Plt Morphology Comment Normal (NORMAL) 08/29/17 06:10 RBC Morphology Normal (NORMAL) 08/29/17 06:10 Sodium 140 mmol/L (136-145) 08/29/17 06:10 Corrected Sodium 141 mmol/L (136-145) 08/29/17 06:10 Potassium 4.1 mmol/L (3.5-5.1) 08/29/17 06:10 Chloride 100 mmol/L (98-107) 08/29/17 06:10 Carbon Dioxide 35.7 mmol/L (21-32) H 08/29/17 06:10 BUN 20 mg/dL (7-18) H 08/29/17 06:10 Creatinine 1.07 mg/dL (0.55-1.02) H 08/29/17 06:10 Est GFR (MDRD) Af Amer > 60 (>60) 08/29/17 06:10 Est GFR (MDRD) Non-Af 55 (>60) L 08/29/17 06:10 Glucose 156 mg/dL (65-99) H 08/29/17 06:10 POC Glucose (mg/dL) 138 mg/dL (65-99) H 08/29/17 05:34 Calcium 9.2 mg/dL (8.5-10.1) 08/29/17 06:10 Corrected Calcium 10.2 mg/dL (8.5-10.1) H 08/29/17 06:10 Total Bilirubin 0.40 mg/dL (0.2-1.0) 08/29/17 06:10 AST 35 Units/L (15-37) 08/29/17 06:10 ALT 95 Units/L (12-78) H 08/29/17 06:10 Alkaline Phosphatase 125 Units/L (46-116) H 08/29/17 06:10 Total Protein 6.1 g/dL (6.4-8.2) L 08/29/17 06:10 Albumin 2.8 g/dL (3.4-5.0) L 08/29/17 06:10 Globulin 3.3 g/dL (2.5-4.5) 08/29/17 06:10 Albumin/Globulin Ratio 0.8 Ratio (1.1-2.1) L 08/29/17 06:10 Specimen Type Clean catch urine 08/28/17 17:43 Urine Color Yellow (YELLOW) 08/28/17 17:43 Urine Appearance Clear (CLEAR) 08/28/17 17:43 Urine pH 7.0 (5.0 - 8.0) 08/28/17 17:43 Ur Specific [place] 1.005 (1.000-1.030) 08/28/17 17:43 Urine Protein Negative (NEGATIVE) 08/28/17 17:43 Urine Glucose (UA) Negative (NEGATIVE) 08/28/17 17:43 Urine Ketones Negative (NEGATIVE) 08/28/17 17:43 Urine Occult Blood Negative (NEGATIVE) 08/28/17 17:43 Urine Nitrite Negative (NEGATIVE) 08/28/17 17:43 Urine Bilirubin Negative (NEGATIVE) 08/28/17 17:43 Urine Urobilinogen Normal (NORMAL) 08/28/17 17:43 Ur Leukocyte Esterase Negative (NEGATIVE) 08/28/17 17:43 Urine RBC 0 /HPF (NEGATIVE) 08/28/17 17:43 Urine WBC 0 /HPF (NEGATIVE) 08/28/17 17:43 Ur Squamous Epith Cells Negative /HPF (NEGATIVE) 08/28/17 17:43 Urine Bacteria Negative /HPF (NEGATIVE) 08/28/17 17:43 Ur Culture Indicated? 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
[2017-08-29] MEDS: PULMICORT NEB TX 0.5 MG NEB SCH ×2 (09:04→21:08)
[2017-08-29] MEDS: BROVANA IN SCH ×2 (09:04→21:08)
[2017-08-29] MEDS ORDERED: VOLTAREN 1 % GEL MULTI DOSE TUBE TOP PRN (09:16)
[2017-08-29] MEDS: CARDIZEM CD 240 MG PO SCH (09:18)
[2017-08-29] MEDS: ZANTAC PO SCH ×2 (09:18→21:02)
[2017-08-29] MEDS: ALDACTONE TAB 25 MG PO SCH (09:18)
[2017-08-29] MEDS: CORTISPORIN OTIC SUSP RIGHT EAR SCH ×4 (09:19→21:10)
[2017-08-29] MEDS: SINGULAIR TAB 10 MG PO SCH (09:19)
[2017-08-29] MEDS: LASIX PO SCH (09:19)
[2017-08-29] MEDS: FLONASE NASAL SPRAY ENOSTRIL SCH (09:22)
[2017-08-29] MEDS: NICOTINE PATCH TD SCH (09:22)
[2017-08-29] MEDS: PHENERGAN TAB 25 MG PO PRN ×2 (09:27→18:37)
[2017-08-29] MEDS: HumuLIN R SC PRN (12:06)
[2017-08-29] MEDS: TORADOL 30 MG VIAL IVP PRN ×2 (12:07→23:47)
[2017-08-29] MEDS: ZANAFLEX PO PRN (21:01)
[2017-08-29] MEDS: AMBIEN PO PRN (21:01)
[2017-08-29] MEDS: ELAVIL PO SCH (21:02)
[2017-08-29] MEDS: COLACE CAP 100 MG PO SCH (21:02)
[2017-08-29] MEDS: REQUIP PO SCH (21:03)
[2017-08-30] MEDS: DUONEB 0.5 MG/3 MG NEB SCH ×5 (01:40→14:08)
[2017-08-30] MEDS: NORCO 10/325 TAB PO SCH ×5 (03:15→13:27)
[2017-08-30] MEDS: NEURONTIN CAP 300 MG PO SCH ×2 (05:09→13:27)
[2017-08-30] MEDS: XANAX PO SCH ×2 (05:10→13:26)
[2017-08-30] MEDS: CORTISPORIN OTIC SUSP RIGHT EAR SCH ×2 (08:46→13:26)
[2017-08-30] MEDS: ZANTAC PO SCH (08:47)
[2017-08-30] MEDS: NICOTINE PATCH TD SCH (08:48)
[2017-08-30] MEDS: CARDIZEM CD 240 MG PO SCH (08:48)
[2017-08-30] MEDS: LASIX PO SCH (08:48)
[2017-08-30] MEDS: ALDACTONE TAB 25 MG PO SCH (08:48)
[2017-08-30] MEDS: SINGULAIR TAB 10 MG PO SCH (08:48)
[2017-08-30] MEDS: FLONASE NASAL SPRAY ENOSTRIL SCH (08:54)
[2017-08-30] MEDS: BROVANA IN SCH (08:55)
[2017-08-30] MEDS: PULMICORT NEB TX 0.5 MG NEB SCH (08:55)
[2017-08-30] MEDS: ZANAFLEX PO PRN (11:26)
[2017-08-30 12:08] VITALS: BP 151/63
== END 2017-08-30 15:15 | disposition home or self-care (01) | DRG 189 ==
LOC: MED/SURG 16:23
PROVIDERS: ADMIT Internal Medicine; ATTEND Internal Medicine
DX: J96.22 Acute and chronic respiratory failure with hypercapnia (principal); Z51.89 Encounter for other specified aftercare; J44.1 Chronic obstructive pulmonary disease with (acute) exacerbation; R06.02 Shortness of breath; Z91.81 History of falling; R94.31 Abnormal electrocardiogram [ECG] [EKG]; I10 Essential (primary) hypertension; N18.9 Chronic kidney disease, unspecified; R53.1 Weakness; I50.9 Heart failure, unspecified; R11.2 Nausea with vomiting, unspecified; R60.1 Generalized edema; R26.89 Other abnormalities of gait and mobility
CPT/HCPCS: 36415; 80053; 81001; 85025; Q0169; J1815; J1885; J2405; J7620; J7626

== ENCOUNTER 2017-09-01 04:21 | Emergency (ER) | payer MEDICAID, OTHER ==
--- NOTE | 2017-09-01 04:35 | DR.SOBA ---
HPI - Time Seen Time seen: 04:30 - Complaints Chief Complaint Doctors Comments: Patient presented to the ED via EMS with complaint of Shortness of breath. She is non ambulatory with COPD. She was discharged from the hospital two days ago s/p treatment of pulmonary problems. It was reported that patient has been bed bound since discharge and has been unable to get out of bed without assistance. The assistance was concerned when patient appeared to be limp with decreased movement and short of breath. PMH - PMH Past Medical History: Anxiety, Arthritis, Asthma, CHF, COPD, Coronary Artery Disease, Hypertension Past Surgical History: Yes Surgical History: Abdominal Surgery, Appendectomy, Bowel Resection, Cholecystectomy - Family History Family Medical History: Hypertension - Social History Do you use any recreational Drugs:: No ROS - Review of Systems Eyes: No Symptoms Reported ENTM: No Symptoms Reported Respiratoy: Short of Breath Cardiovascular: No Symptoms Reported Gastrointestinal/Abdominal: No Symptoms Reported Genitourinary: No Symptoms Reported Neurological: No Symptoms Reported Musculoskeletal: No Symptoms Reported Integumentary: No Symptoms Reported Hematologic/Lymphatic: No Symptoms Reported Endocrine: No Symptoms Reported Psychiatric: No Symptoms Reported All Other Systems: Reviewed and Negative PE - Vital Signs Vitals: Temperature 99.6 F Pulse Rate [Right Brachial] 129 Pulse Rate 132 Respiratory Rate 28 Blood Pressure [Left Arm] 120/42 Blood Pressure [Right Arm] 120/58 Blood Pressure 131/82 O2 Sat by Pulse Oximetry 92 - General Limitations: Physical Limitation General Appearance: Alert, In No Apparent Distress - Head Head Exam: Normal Inspection, Atraumatic - Eyes Eye exam: Normal Appearance, PERRL, EOMI - ENT ENT Exam: Normal Exam - Neck Neck Exam: Normal Inspection, Full ROM - Chest Chest Inspection: Normal Inspection - Respiratory Respiratory Exam: Prolonged Expiratory Phase Respiratory Exam: Bilateral Rhonchi - Cardiovascular Cardiovascular Exam: Regular Rate - Abdominal Exam Abdominal Exam: Normal Inspection Abdominal Tenderness: negative: RUQ, RLQ, LUQ, LLQ, Epigastrium, Suprapubic, Diffuse, Mild, Moderate, Severe, Other - Extremities Extremities Exam: Normal Capillary Refill - Back Back Exam: Normal Inspection - Neurologic Neurological Exam: Alert, Oriented X3, CN II-XII Intact - Psychiatric Psychiatric Exam: Normal Affect - Skin Skin Exam: Warm, Dry, Intact ROR - Labs Reviewed Result Diagrams: 09/01/17 04:50 09/01/17 04:50 Laboratory: WBC 7.4 X10^3/uL (3.6-10.0) 09/01/17 04:50 RBC 3.59 X10^6/uL (3.5-5.4) 09/01/17 04:50 Hgb 11.0 g/dL (12.0-16.0) L 09/01/17 04:50 Hct 33.8 % (36.0-47.0) L 09/01/17 04:50 MCV 94.0 fL (80.0-100.0) 09/01/17 04:50 MCH 30.6 pg (27.0-34.0) 09/01/17 04:50 MCHC 32.6 g/dL (33.0-35.0) L 09/01/17 04:50 RDW 14.9 % (11.6-16.5) 09/01/17 04:50 Plt Count 232 X10^3/uL (150.0-450.0) 09/01/17 04:50 MPV 7.8 fL (7.4-11.0) 09/01/17 04:50 Neut % 74.2 % (42.0-75.0) 09/01/17 04:50 Lymph % 14.0 % (21.0-51.0) L 09/01/17 04:50 [place] % 7.7 % (0.0-13.0) 09/01/17 04:50 Eos % 3.5 % (0.9-2.9) H 09/01/17 04:50 Baso % 0.6 % (0.2-1.0) 09/01/17 04:50 Neut # 5.5 x10^3/uL (2.2-4.8) H 09/01/17 04:50 Lymph # 1.0 X10^3/uL (1.3-2.9) L 09/01/17 04:50 [place] # 0.6 x10^3/uL (0.3-0.8) 09/01/17 04:50 Eos # 0.3 x10^3/uL (0.0-0.2) H 09/01/17 04:50 Baso # 0.0 X10^3/uL (0.0-0.1) 09/01/17 04:50 Absolute Nucleated RBC 0.0 /100WBC 09/01/17 04:50 D-Dimer 2170 ng/mL (0-400) H* 09/01/17 04:50 Sodium 143 mmol/L (136-145) 09/01/17 04:50 Corrected Sodium 143 mmol/L (136-145) 09/01/17 04:50 Potassium 5.0 mmol/L (3.5-5.1) 09/01/17 04:50 Chloride 103 mmol/L (98-107) 09/01/17 04:50 Carbon Dioxide 36.7 mmol/L (21-32) H 09/01/17 04:50 BUN 18 mg/dL (7-18) 09/01/17 04:50 Creatinine 1.06 mg/dL (0.55-1.02) H 09/01/17 04:50 Est GFR (MDRD) Af Amer > 60 (>60) 09/01/17 04:50 Est GFR (MDRD) Non-Af 55 (>60) L 09/01/17 04:50 Glucose 117 mg/dL (65-99) H 09/01/17 04:50 Calcium 8.8 mg/dL (8.5-10.1) 09/01/17 04:50 Corrected Calcium 9.6 mg/dL (8.5-10.1) 09/01/17 04:50 Total Bilirubin 0.30 mg/dL (0.2-1.0) 09/01/17 04:50 AST 42 Units/L (15-37) H 09/01/17 04:50 ALT 95 Units/L (12-78) H 09/01/17 04:50 Alkaline Phosphatase 155 Units/L (46-116) H 09/01/17 04:50 Creatine Kinase 23 Units/L (26-192) L 09/01/17 04:50 CK-MB (CK-2) < 1.0 ng/mL (0-4.0) 09/01/17 04:50 CK/CKMB % Calc 4.4 % (<4) 09/01/17 04:50 Troponin I < 0.02 ng/mL (0-1.5) 09/01/17 04:50 Total Protein 7.1 g/dL (6.4-8.2) 09/01/17 04:50 Albumin 3.0 g/dL (3.4-5.0) L 09/01/17 04:50 Globulin 4.1 g/dL (2.5-4.5) 09/01/17 04:50 Albumin/Globulin Ratio 0.7 Ratio (1.1-2.1) L 09/01/17 04:50 Influenza Type A (PCR) Negative (NEGATIVE) 09/01/17 04:37 Influenza Type B (PCR) Negative (NEGATIVE) 09/01/17 04:37 - XRAY XRAY Interpreted by: Radiologist (Chest: The heart is mildly enlarged. There is mild ulmonary vascular congestion without overt edema. Righ sided port catheter is well poositioned without penumothorax. No focal consolidation or signinicant pleural effusion is identified. Impression: Mild cardiomegaly and pulmonary vascular congestion witihout overt edema.) XRAY Findings: CTA: No evidence of pulmonary embolus - Diagnosis Discharge Problem: COPD (chronic obstructive pulmonary disease) Qualifiers: COPD type: unspecified COPD Qualified Code(s): J44.9 - Chronic obstructive pulmonary disease, unspecified Dyspnea Qualifiers: Dyspnea type: shortness of breath Qualified Code(s): R06.02 - Shortness of breath; R06.00 - Dyspnea, unspecified; R06.01 - Orthopnea - Discharge Plan Condition: Stable - Follow ups/Referrals Follow ups/Referrals: DAVONTE MAY [Primary Care Provider] - 3 days - Instructions
[2017-09-01 04:50] VITALS: BMI 48.8
--- NOTE | 2017-09-01 04:52 | RAD ---
Chest, one-view Indication: Wheezing Comparison: 08/18/2017 Findings: The heart is mildly enlarged. There is mild pulmonary vascular congestion without overt forrest ma. Right-sided port catheter is well positioned without pneumothorax. No focal consolidation or sign ificant pleural effusion is identified. Impression: Mild cardiomegaly and pulmonary vascular congestion without overt edema. Reported By:
[2017-09-01 05:02] LABS: BASOPHILS % (AUTO) 0.6 % (0.2-1.0); EOSINOPHILS # (AUTO) 0.3 x10^3/uL (0.0-0.2); EOSINOPHILS % (AUTO) 3.5 % (0.9-2.9); HEMATOCRIT 33.8 % (36.0-47.0); MEAN CORPUSCULAR HEMOGLOBIN 30.6 pg (27.0-34.0); MEAN CORPUSCULAR HGB CONC 32.6 g/dL (33.0-35.0); MEAN PLATELET VOLUME 7.8 fL (7.4-11.0); MONOCYTES # (AUTO) 0.6 x10^3/uL (0.3-0.8); MONOCYTES % (AUTO) 7.7 % (0.0-13.0); NEUTROPHILS # (AUTO) 5.5 x10^3/uL (2.2-4.8); NEUTROPHILS % (AUTO) 74.2 % (42.0-75.0); PLATELET COUNT 232 X10^3/uL (150.0-450.0); RED BLOOD COUNT 3.59 X10^6/uL (3.5-5.4); RED CELL DISTRIBUTION WIDTH 14.9 % (11.6-16.5); WHITE BLOOD COUNT 7.4 X10^3/uL (3.6-10.0)
[2017-09-01 05:17] LABS: BLOOD UREA NITROGEN 18 mg/dL (7-18); CALCIUM 8.8 mg/dL (8.5-10.1); CARBON DIOXIDE 36.7 mmol/L (21-32); CHLORIDE 103 mmol/L (98-107); COR NA(FOR HYPERGLY) 143 mmol/L (136-145); CREATININE 1.06 mg/dL (0.55-1.02); SODIUM 143 mmol/L (136-145); TROPONIN I < 0.02 ng/mL (0-1.5); eGFR BLACK RACES > 60 (>60); eGFR NON BLACK RACES 55 (>60)
[2017-09-01 05:34] LABS: ALANINE AMINOTRANSFERASE 95 Units/L (12-78); ALKALINE PHOSPHATASE 155 Units/L (46-116); ASPARTATE AMINO TRANSFERASE 42 Units/L (15-37); CKMB % 4.4 % (<4); COR CA(FOR HYPOALB) 9.6 mg/dL (8.5-10.1); CREATINE KINASE 23 Units/L (26-192); CREATINE KINASE MB < 1.0 ng/mL (0-4.0); TOTAL PROTEIN 7.1 g/dL (6.4-8.2)
--- NOTE | 2017-09-01 07:47 | CT ---
HISTORY: Dyspnea, elevated D-dimer Study: CTA chest with contrast, PE protocol Comparison: March 07, 2017 Technique: CT angiography of the chest was performed following the administration of intravenous cont rast utilizing standard protocol with MIP post processing performed and reviewed. AEC was utilized. Findings: There is no hilar or mediastinal lymphadenopathy. The aorta demonstrates no aneurysm or dissection. T here is a background of emphysema with patchy consolidation in the lung bases favored to represent at electasis and/or pneumonia. There is evidence for pulmonary arterial hypertension, but no definite pu lmonary arterial filling defects are identified. No destructive osseous lesions are seen. Mild thorac ic spondylosis is noted. A right-sided Port-A-Cath is noted. The thyroid is unremarkable. Scans throu gh the upper abdomen are within normal limits. IMPRESSION: Background of emphysema with superimposed bibasilar pneumonia. No definite PTE is identified. Reported By:
[2017-09-02] MEDS ORDERED: SOLU-Medrol 40 MG VIAL ONE (02:27)
[2017-09-02] MEDS ORDERED: NS 250 ML IV 250 ML IV ONE (02:28)
[2017-09-02] MEDS ORDERED: LEVAQUIN PREMIX IV 750 MG 750 MG/150 ML BAG IV ONE (02:28)
[2017-09-02 02:40] VITALS: BP 176/81
[2017-09-02] MEDS ORDERED: DUONEB 0.5 MG/3 MG ONE (05:24)
[2017-09-02] MEDS ORDERED: SALINE 3% 15 ML NEB TX ONE (06:19)
== END 2017-09-02 01:50 | disposition home or self-care (01) ==
LOC: ER 04:21 → ICU 09-02 01:57 → UNDOADMIN 09-02 01:57
DX: J96.22 Acute and chronic respiratory failure with hypercapnia (principal); R40.1 Stupor; J18.8 Other pneumonia, unspecified organism; J44.1 Chronic obstructive pulmonary disease with (acute) exacerbation; I50.9 Heart failure, unspecified; N18.9 Chronic kidney disease, unspecified; I25.10 Atherosclerotic heart disease of native coronary artery without angina pectoris; R94.31 Abnormal electrocardiogram [ECG] [EKG]; K21.9 Gastro-esophageal reflux disease without esophagitis; M51.37 Other intervertebral disc degeneration, lumbosacral region
CPT/HCPCS: 36415; 36591; 36600; 51702; 71045; 71275; 80053; 82550; 82553; 82803; 83735; 83880; 84484; 85025; 85378; 85610; 85730; 87502; 93005; 93010; 93041; 96365; 96374; 96375; 99283; 99284; 99285; A4222; J1956; J2920; J7620

== ENCOUNTER 2017-09-01 22:09 | Inpatient (IN) | payer OTHER, MEDICAID ==
[2017-09-01 22:54] LABS: BASOPHILS # (AUTO) 0.1 X10^3/uL (0.0-0.1); BASOPHILS % (AUTO) 0.7 % (0.2-1.0); EOSINOPHILS # (AUTO) 0.2 x10^3/uL (0.0-0.2); EOSINOPHILS % (AUTO) 2.4 % (0.9-2.9); HEMOGLOBIN 10.9 g/dL (12.0-16.0); LYMPHOCYTES # (AUTO) 1.3 X10^3/uL (1.3-2.9); LYMPHOCYTES % (AUTO) 14.8 % (21.0-51.0); MEAN CORPUSCULAR HEMOGLOBIN 31.1 pg (27.0-34.0); MEAN CORPUSCULAR HGB CONC 32.9 g/dL (33.0-35.0); MEAN CORPUSCULAR VOLUME 94.3 fL (80.0-100.0); MEAN PLATELET VOLUME 7.7 fL (7.4-11.0); MONOCYTES # (AUTO) 0.6 x10^3/uL (0.3-0.8); MONOCYTES % (AUTO) 6.7 % (0.0-13.0); NEUTROPHILS # (AUTO) 6.6 x10^3/uL (2.2-4.8); NEUTROPHILS % (AUTO) 75.4 % (42.0-75.0); PLATELET COUNT 254 X10^3/uL (150.0-450.0); RED CELL DISTRIBUTION WIDTH 14.9 % (11.6-16.5); WHITE BLOOD COUNT 8.8 X10^3/uL (3.6-10.0)
--- NOTE | 2017-09-01 23:04 | RAD ---
HISTORY: Shortness of breath. Study: Portable chest. Comparison: CT chest and chest x-ray dated same day. Findings: The trachea is midline. The cardiac silhouette is enlarged but unchanged. Stable appearance of a rig ht chest Port-A-Cath. Bibasilar atelectasis versus infiltrate appears unchanged. No obvious pleural effusion or pneumothorax. The bony thorax is unremarkable. IMPRESSION: No significant change from prior. Reported By:
[2017-09-01 23:07] LABS: BLOOD UREA NITROGEN 17 mg/dL (7-18); CALCIUM 8.8 mg/dL (8.5-10.1); CARBON DIOXIDE 36.3 mmol/L (21-32); CHLORIDE 103 mmol/L (98-107); COR NA(FOR HYPERGLY) 142 mmol/L (136-145); CREATININE 1.02 mg/dL (0.55-1.02); SODIUM 141 mmol/L (136-145); TROPONIN I < 0.02 ng/mL (0-1.5); eGFR BLACK RACES > 60 (>60); eGFR NON BLACK RACES 58 (>60)
[2017-09-01 23:11] LABS: ALANINE AMINOTRANSFERASE 94 Units/L (12-78); ALBUMIN 3.1 g/dL (3.4-5.0); ALKALINE PHOSPHATASE 147 Units/L (46-116); ASPARTATE AMINO TRANSFERASE 36 Units/L (15-37); CKMB % 2.9 % (<4); COR CA(FOR HYPOALB) 9.5 mg/dL (8.5-10.1); CREATINE KINASE 42 Units/L (26-192); CREATINE KINASE MB 1.2 ng/mL (0-4.0); TOTAL PROTEIN 7.1 g/dL (6.4-8.2)
[2017-09-01 23:15] LABS: B-TYPE NATRIURETIC PEPTIDE 170 pg/mL (0-79)
[2017-09-02 00:12] LABS: ABG BASE EXCESS 11.5 mmol/L (-2.0-2.0)
[2017-09-02 00:14] LABS: ABG ALLEN TEST POS; ABG HCO3 41.8 mmol/L (22-26)
--- NOTE | 2017-09-02 00:33 | DR.SOBA ---
HPI - Time Seen Time seen: 22:30 - Primary Care Physician Primary Care Physician: YADIRA - HPI Comment HPI Comment: ON HOME O2. SEEN IN ED WENT HOME AND GOT WORSE. - Complaints Chief Complaint Doctors Comments: INCREASING SOB TIMES TWO DAYS WITH FEVER, WEAKNESS AND CHEST PAIN. Chief Complaint:: DIFFICULTY BREATHING. EMS STATES,"OXYGEN SATURATION ON ARRIVAL WITH PATIENT HOME O2 AT 3L NC INTACT WAS 77%" . - Reviewed Nurses Notes Reviewed: Yes - Source History Provided: Patient, EMS - Mode of Arrival Mode of Arrival: EMS - Timing Onset of Chief Complaint: 09/01/17 - Duration Duration: Days - Context Onset:: At Rest PE Risk Factors:: None History of:: COPD, CHF Currently on:: Inhaled Bronchodilators Prehospital Care:: Inhaled B2 - Modifying Factors Worsens:: Nothing Improves:: Nothing - Associated Signs and Symptoms Associated Signs and Symptoms: Fever, Wheeze, Cough, Nasal Congestion, Chest Pain, Leg Swelling - If Chest Pain Quality: Sharp Location: Left Lower Chest, Substernal - If Cough Cough: Nonproductive PMH - PMH Past Medical History: Yes Past Medical History: Anxiety, Arthritis, Asthma, CHF, COPD, Coronary Artery Disease, Hypertension Past Surgical History: Yes Surgical History: Abdominal Surgery, Appendectomy, Bowel Resection, Cholecystectomy - Family History History of Family Medical Conditions: Yes Family Medical History: Hypertension - Social History Does patient currently use any type of tobacco product: No Have you used tobacco products in the last 12 months: No Type of Tobacco Use: None Does any household member use tobacco: No Alcohol Use: None Do you use any recreational Drugs:: No Lives With: Significant Other Lives Where: Home - infectious screening Have you traveled outside the country in the last 6 months?: No Isolation: Standard ROS - Review of Systems Constitutional: Fever, Weakness, Fatigue. negative: Chills Eyes: negative: Eye Pain, Discharge ENTM: Nose Discharge, Nose Congestion. negative: Ear Discharge, Throat Pain Respiratoy: Non-Productive Cough Cardiovascular: Chest Pain, Edema Gastrointestinal/Abdominal: negative: Abdominal Pain, Diarrhea, Nausea, Vomiting Genitourinary: negative: Dysuria, Hematuria Neurological: Headache, Weakness, Dizziness, Problems Walking Musculoskeletal: Back Pain, Muscle Pain, Back Integumentary: Change in Color Hematologic/Lymphatic: Easy Bleeding, Easy Bruising Endocrine: negative: Flushing All Other Systems: Reviewed and Negative (HISTORY PER .) PE - Vital Signs Vitals: Temperature 99.9 F Pulse Rate [Apical] 116 Pulse Rate 119 Respiratory Rate 32 Blood Pressure [Left Arm] 174/77 Blood Pressure [Right Arm] 194/68 Blood Pressure 176/81 O2 Sat by Pulse Oximetry 98 - General Limitations: Altered Mental Status General Appearance: Obtunded, Other (RESPOND TO PAIN) - Head Head Exam: Normal Inspection - Eyes Eye exam: PERRL. negative: Scleral Icterus, Conjunctival Injection - ENT ENT Exam: Normal Oropharynx, Normal External Ear Exam, TM's Normal Bilaterally - Neck Neck Exam: Trachea Midline - Chest Chest Inspection: Symmetric Chest Wall Rise - Respiratory Respiratory Exam: Accessory Muscle Use, Prolonged Expiratory Phase, Respiratory Distress Respiratory Exam: Bilateral Wheezing, Bilateral Rhonchi, Upper Wheezing, Upper Rhonchi, Lower Wheezing, Lower Rhonchi - Cardiovascular Cardiovascular Exam: Regular Rate, Tachycardia, Normal Heart Sounds - Abdominal Exam Abdominal Exam: Normal Bowel Sounds, Soft. negative: Tenderness - Extremities Extremities Exam: Edema - Back Back Exam: Paraspinal Tenderness - Neurologic Neurological Exam: Other (AMS) - Skin Skin Exam: Erythema MDM - Additional Information Obtained Additional Information Obtained From: Family - Differential Diagnosis Differential Diagnosis: CHF, COPD, Mycardial Infarction, Pneumonia, Respiratory Failure Course - Treatment Treatment: SEE ORDERS. PLACE ON BI-PAP. - Reevaluation 1st: Unchanged - Education/Counseling Education/Counseling: Family, Education Educated On: Treatment, Diagnosis, Needs for Follow Up ROR - Labs Reviewed Laboratory Results Reviewed?: Yes Result Diagrams: 09/03/17 05:15 09/03/17 05:15 Laboratory: WBC 9.7 X10^3/uL (3.6-10.0) 09/03/17 05:15 RBC 3.73 X10^6/uL (3.5-5.4) 09/03/17 05:15 Hgb 11.5 g/dL (12.0-16.0) L 09/03/17 05:15 Hct 33.9 % (36.0-47.0) L 09/03/17 05:15 MCV 91.0 fL (80.0-100.0) 09/03/17 05:15 MCH 31.0 pg (27.0-34.0) 09/03/17 05:15 MCHC 34.0 g/dL (33.0-35.0) 09/03/17 05:15 RDW 14.4 % (11.6-16.5) 09/03/17 05:15 Plt Count 324 X10^3/uL (150.0-450.0) 09/03/17 05:15 MPV 8.0 fL (7.4-11.0) 09/03/17 05:15 Neut % 88.0 % (42.0-75.0) H 09/03/17 05:15 Lymph % 8.3 % (21.0-51.0) L 09/03/17 05:15 [place] % 3.4 % (0.0-13.0) 09/03/17 05:15 Eos % 0.0 % (0.9-2.9) L 09/03/17 05:15 Baso % 0.3 % (0.2-1.0) 09/03/17 05:15 Neut # 8.5 x10^3/uL (2.2-4.8) H 09/03/17 05:15 Lymph # 0.8 X10^3/uL (1.3-2.9) L 09/03/17 05:15 [place] # 0.3 x10^3/uL (0.3-0.8) 09/03/17 05:15 Eos # 0.0 x10^3/uL (0.0-0.2) 09/03/17 05:15 Baso # 0.0 X10^3/uL (0.0-0.1) 09/03/17 05:15 Absolute Nucleated RBC 0.0 /100WBC 09/03/17 05:15 INR Target Range - 09/01/17 22:50 INR 0.94 (0.8-1.3) 09/01/17 22:50 PTT 31.5 SECONDS (22.9-36.5) 09/01/17 22:50 PTT Comment - 09/01/17 22:50 Sample Site Right radial 09/03/17 10:30 ABG pH 7.510 (7.35-7.45) H 09/03/17 10:30 ABG pCO2 51.0 mmHg (35.0-45.0) H* 09/03/17 10:30 ABG pO2 69.0 mmHg (80.0-100.0) L 09/03/17 10:30 ABG HCO3 40.7 mmol/L (22-26) H* 09/03/17 10:30 ABG O2 Saturation 95.0 % (90-100) 09/03/17 10:30 ABG Base Excess 15.5 mmol/L (-2.0-2.0) H 09/03/17 10:30 Sameer Test Pos 09/03/17 10:30 A-a Gradient 124.0 mmHg 09/03/17 10:30 FiO2 36.000 09/03/17 10:30 Blood Gas Comments Ferm[place] well er 09/03/17 10:30 Sodium 139 mmol/L (136-145) 09/03/17 05:15 Corrected Sodium 141 mmol/L (136-145) 09/03/17 05:15 Potassium 3.4 mmol/L (3.5-5.1) L 09/03/17 05:15 Chloride 96 mmol/L (98-107) L 09/03/17 05:15 Carbon Dioxide 34.4 mmol/L (21-32) H 09/03/17 05:15 BUN 22 mg/dL (7-18) H 09/03/17 05:15 Creatinine 1.29 mg/dL (0.55-1.02) H 09/03/17 05:15 Est GFR (MDRD) Af Amer 54 (>60) L 09/03/17 05:15 Est GFR (MDRD) Non-Af 44 (>60) L 09/03/17 05:15 Glucose 171 mg/dL (65-99) H 09/03/17 05:15 POC Glucose (mg/dL) 210 mg/dL (65-99) H 09/03/17 05:23 Calcium 9.0 mg/dL (8.5-10.1) 09/03/17 05:15 Corrected Calcium 9.6 mg/dL (8.5-10.1) 09/03/17 05:15 Magnesium 2.0 mg/dL (1.7-2.9) 09/01/17 22:28 Total Bilirubin 0.50 mg/dL (0.2-1.0) 09/03/17 05:15 AST 22 Units/L (15-37) 09/03/17 05:15 ALT 66 Units/L (12-78) 09/03/17 05:15 Alkaline Phosphatase 135 Units/L (46-116) H 09/03/17 05:15 Creatine Kinase 48 Units/L (26-192) 09/02/17 11:14 CK-MB (CK-2) < 1.0 ng/mL (0-4.0) 09/02/17 11:14 CK/CKMB % Calc 2.1 % (<4) 09/02/17 11:14 Troponin I < 0.02 ng/mL (0-1.5) 09/02/17 11:14 B-Natriuretic Peptide 170 pg/mL (0-79) H 09/01/17 22:28 Total Protein 7.9 g/dL (6.4-8.2) 09/03/17 05:15 Albumin 3.2 g/dL (3.4-5.0) L 09/03/17 05:15 Globulin 4.7 g/dL (2.5-4.5) H 09/03/17 05:15 Albumin/Globulin Ratio 0.7 Ratio (1.1-2.1) L 09/03/17 05:15 Specimen Type Catherized urine 09/02/17 02:05 Urine Color Pale yellow (YELLOW) 09/02/17 02:05 Urine Appearance Clear (CLEAR) 09/02/17 02:05 Urine pH 5.0 (5.0 - 8.0) 09/02/17 02:05 Ur Specific [place] 1.015 (1.000-1.030) 09/02/17 02:05 Urine Protein Negative (NEGATIVE) 09/02/17 02:05 Urine Glucose (UA) Negative (NEGATIVE) 09/02/17 02:05 Urine Ketones Negative (NEGATIVE) 09/02/17 02:05 Urine Occult Blood Negative (NEGATIVE) 09/02/17 02:05 Urine Nitrite Negative (NEGATIVE) 09/02/17 02:05 Urine Bilirubin Negative (NEGATIVE) 09/02/17 02:05 Urine Urobilinogen Normal (NORMAL) 09/02/17 02:05 Ur Leukocyte Esterase Negative (NEGATIVE) 09/02/17 02:05 Urine RBC None seen /HPF (NEGATIVE) 09/02/17 02:05 Urine WBC None seen /HPF (NEGATIVE) 09/02/17 02:05 Ur Squamous Epith Cells Rare /HPF (NEGATIVE) 09/02/17 02:05 Urine Bacteria Negative /HPF (NEGATIVE) 09/02/17 02:05 Ur Culture Indicated? No/not indicated 09/02/17 02:05 - EKG Rhythm: ST (EKG NOTED) - Diagnosis Discharge Problem: Respiratory distress Pneumonia Qualifiers: Pneumonia type: due to unspecified organism Laterality: bilateral Lung location : lower lobe of lung Qualified Code(s): J18.9 - Pneumonia, unspecified organism Mental status alteration Qualifiers: Altered mental status type: stupor Qualified Code(s): R40.1 - Stupor - Discharge Plan Disposition: ADMITTED INPATIENT Condition: Stable - Follow ups/Referrals - Instructions
[2017-09-02 01:38] LABS: ABG BASE EXCESS 12.7 mmol/L (-2.0-2.0)
[2017-09-02 01:40] LABS: ABG ALLEN TEST POS; ABG HCO3 41.2 mmol/L (22-26)
[2017-09-02] MEDS ORDERED: SOLU-Medrol 40 MG VIAL IVP ONE (02:03)
[2017-09-02 02:15] LABS: BILIRUBIN,URINE NEGATIVE (NEGATIVE); BLOOD/HEMOGLOBIN,URINE NEGATIVE (NEGATIVE); GLUCOSE, URINE NEGATIVE (NEGATIVE); KETONES,URINE NEGATIVE (NEGATIVE); LEUKOCYTE ESTERASE ,URINE NEGATIVE (NEGATIVE); NITRITES,URINE NEGATIVE (NEGATIVE); PROTEIN,URINE NEGATIVE (NEGATIVE); UROBILINOGEN,URINE NORMAL (NORMAL)
[2017-09-02] MEDS ORDERED: DUONEB 0.5 MG/3 MG NEB SCH (02:15)
[2017-09-02 02:25] LABS: APPEARANCE,URINE CLEAR (CLEAR); BACTERIA,URINE NEGATIVE /HPF (NEGATIVE); COLOR,URINE PALE YELLOW (YELLOW); RBC,URINE NONE SEEN /HPF (NEGATIVE); SQUAMOUS EPITHELIAL CELL,UR RARE /HPF (NEGATIVE)
[2017-09-02] MEDS: LEVAQUIN PREMIX IV 750 MG 750 MG/150 ML BAG IV SCH ×2 (02:30→08:07)
[2017-09-02] MEDS: NS 250 ML IV 250 ML IV SCH ×2 (02:30→16:11)
[2017-09-02] MEDS ORDERED: FORTAZ or TAZICEF INJ 1 GM in NS 100 ML IV + SPIKE MINIBAG* 100 ML IV SCH (03:00)
[2017-09-02] MEDS ORDERED: CATAPRES-TTS-2 TD SCH ×2 (03:00→22:30)
[2017-09-02] MEDS: DUONEB 0.5 MG/3 MG NEB SCH ×5 (05:40→21:04)
[2017-09-02 05:59] LABS: ALANINE AMINOTRANSFERASE 79 Units/L (12-78); ALBUMIN 2.9 g/dL (3.4-5.0); ALKALINE PHOSPHATASE 137 Units/L (46-116); ASPARTATE AMINO TRANSFERASE 29 Units/L (15-37); BLOOD UREA NITROGEN 14 mg/dL (7-18); CALCIUM 8.7 mg/dL (8.5-10.1); CARBON DIOXIDE 35.2 mmol/L (21-32); CHLORIDE 101 mmol/L (98-107); COR CA(FOR HYPOALB) 9.6 mg/dL (8.5-10.1); COR NA(FOR HYPERGLY) 141 mmol/L (136-145); CREATININE 0.93 mg/dL (0.55-1.02); SODIUM 140 mmol/L (136-145); TOTAL PROTEIN 6.9 g/dL (6.4-8.2); eGFR BLACK RACES > 60 (>60); eGFR NON BLACK RACES > 60 (>60)
[2017-09-02 06:13] LABS: BASOPHILS % (AUTO) 0.5 % (0.2-1.0); EOSINOPHILS # (AUTO) 0.1 x10^3/uL (0.0-0.2); EOSINOPHILS % (AUTO) 0.8 % (0.9-2.9); HEMATOCRIT 29.9 % (36.0-47.0); HEMOGLOBIN 10.1 g/dL (12.0-16.0); LYMPHOCYTES # (AUTO) 0.5 X10^3/uL (1.3-2.9); LYMPHOCYTES % (AUTO) 5.6 % (21.0-51.0); MEAN CORPUSCULAR HEMOGLOBIN 31.4 pg (27.0-34.0); MEAN CORPUSCULAR HGB CONC 33.6 g/dL (33.0-35.0); MEAN CORPUSCULAR VOLUME 93.4 fL (80.0-100.0); MEAN PLATELET VOLUME 7.9 fL (7.4-11.0); MONOCYTES # (AUTO) 0.3 x10^3/uL (0.3-0.8); MONOCYTES % (AUTO) 3.7 % (0.0-13.0); NEUTROPHILS # (AUTO) 7.7 x10^3/uL (2.2-4.8); NEUTROPHILS % (AUTO) 89.4 % (42.0-75.0); PLATELET COUNT 248 X10^3/uL (150.0-450.0); RED BLOOD COUNT 3.21 X10^6/uL (3.5-5.4); RED CELL DISTRIBUTION WIDTH 14.7 % (11.6-16.5); WHITE BLOOD COUNT 8.6 X10^3/uL (3.6-10.0)
[2017-09-02 06:23] LABS: CKMB % 3.5 % (<4); CREATINE KINASE 29 Units/L (26-192); CREATINE KINASE MB < 1.0 ng/mL (0-4.0); TROPONIN I < 0.02 ng/mL (0-1.5)
[2017-09-02] MEDS: FORTAZ or TAZICEF INJ 1 GM in NS 100 ML IV + SPIKE MINIBAG* 100 ML IV SCH ×3 (07:23→21:44)
[2017-09-02] MEDS: XANAX PO PRN ×2 (08:40→21:43)
[2017-09-02 10:54] LABS: ABG BASE EXCESS 12.2 mmol/L (-2.0-2.0)
[2017-09-02 10:55] LABS: ABG HCO3 37.3 mmol/L (22-26)
[2017-09-02 10:56] LABS: ABG ALLEN TEST POS
[2017-09-02] MEDS: LASIX IVP SCH ×2 (11:36→21:44)
[2017-09-02] MEDS: SOLU-Medrol 125 MG VIAL IVP SCH ×3 (11:36→21:44)
[2017-09-02] MEDS: CARDIZEM CD 240 MG PO SCH (11:37)
[2017-09-02] MEDS: PERCOCET TAB 5/325 MG PO SCH ×3 (11:37→21:43)
[2017-09-02 12:24] LABS: CKMB % 2.1 % (<4); CREATINE KINASE 48 Units/L (26-192); CREATINE KINASE MB < 1.0 ng/mL (0-4.0); TROPONIN I < 0.02 ng/mL (0-1.5)
--- NOTE | 2017-09-02 13:38 | DR.H&P ---
H&P - History & Physical for Day of: H&P Date: 09/02/17 - Chief Complaint Chief Complaint: severe sob - Allergies Allergies/Adverse Reactions: Allergies Allergy/AdvReac Type Severity Reaction Status Date / Time ketorolac [From Toradol] Allergy Verified 09/01/17 22:40 nalbuphine [From Nubain] Allergy Verified 08/17/17 23:19 Penicillins Allergy Verified 08/17/17 23:19 Sulfa (Sulfonamide Allergy Verified 08/17/17 23:19 Antibiotics) [SULFA] BETA BLOCKERS Allergy Uncoded 08/17/17 23:19 - History of Present Illness History of Present Illness: the patient is a 62-year-old female who was an ER admission after presenting with severe respiratory distress. Patient has a long history of CHF and COPD with continuous O2 supplementation required. Patient was recently discharged from [facility] after rehabilitation therapy for generalized weakness. Patient states she had increased shortness of breath over the weekend and was seen in the emergency room twice. pt admitted for treatment of resp distress, placed on bipap, ICU - Past Medical History Past Medical History: Anxiety, Arthritis, Asthma, CHF, COPD, Coronary Artery Disease, GERD, Hypertension - Past Surgical History Surgical History: Abdominal Surgery, Appendectomy, Bowel Resection, Cholecystectomy - Family History Family Medical History: Hypertension - Social History Does patient currently use any type of tobacco product: No Have you used tobacco products in the last 12 months: No Type of Tobacco Use: None Does any household member use tobacco: No Alcohol Use: None Drug Use: None - Review of Systems Constitutional: Weakness, Malaise Eyes: No Symptoms Reported ENT: No Symptoms Reported Respiratory: Shortness of Breath, SOB with Excertion, Wheezing Cardiovascular: Chest Pain, Edema, Light Headedness Gastrointestinal: Nausea Genitourinary: No Symptoms Reported Musculoskeletal: Back Pain, Leg Pain Skin: Bruising Neurological: Weakness, Confusion - Physical Exam Vital Signs: Temperature 101.3 F Pulse Rate [Apical] 120 Pulse Rate 118 Respiratory Rate 27 Blood Pressure [Left Arm] 174/77 Blood Pressure [Right Arm] 144/74 Blood Pressure 176/81 O2 Sat by Pulse Oximetry 91 Oriented: Person Eyes: Normal Ear: Normal Nose: Normal Throat: Dry Respiratory: Diminished Throughout Cardiovascular: Tachycardia, Edema : Normal Auscultation: Bowel Sounds: Normal Palpation: Normal Tenderness: Epigastric Musculoskeletal: Right, Left, Shoulder, Knee, Back:Thoracic, Back:Lumbar, Motor Deficit, Sensory Deficit Psychiatric: Anxiety Affect: Anxious Speech Pattern: Unclear. negative: Slurred - Assessment/Plan (1) Respiratory distress Status: Acute Plan: admit ICU, CARDIAC MONITORING, SUPPLEMENTAL O2, BIPAP. REPEAT ABG, RESP THERAPY DUO NEBS, PULMICORT BROVANNA. LASIX IV, STRICT I & OS. RESUME HOME MEDS. REPEAT AM LABS, CONTIUOUS PULSE OX, SUPPORTIVE CARE. CONFIRM CODE STATUS , PT STATES "I DO NOT WANT A TUBE IN MY THROAT" (2) COPD exacerbation Status: Acute (3) Respiratory failure with hypercapnia Qualifiers: Chronicity: acute on chronic Qualified Code(s): J96.22 - Acute and chronic respiratory failure with hypercapnia Status: Acute (4) CHF (congestive heart failure) Status: Chronic (5) Chronic kidney disease (CKD) Status: Chronic (6) DDD (degenerative disc disease), lumbosacral Status: Chronic (7) DHARA (generalized anxiety disorder) Status: Chronic
[2017-09-02] MEDS ORDERED: PATIENT'S HOME MEDICATION (Tiotropium Bromide Monohydrate 1 INH) INH SCH (21:00)
[2017-09-02] MEDS: BROVANA IN SCH (21:03)
[2017-09-02] MEDS: PULMICORT NEB TX 0.5 MG NEB SCH (21:03)
[2017-09-02] MEDS ORDERED: COLACE CAP 100 MG PO PRN (21:07)
[2017-09-02] MEDS: ELAVIL PO SCH (21:43)
[2017-09-03] MEDS: DUONEB 0.5 MG/3 MG NEB SCH ×6 (01:30→20:16)
[2017-09-03] MEDS ORDERED: NS IRRIGATION 500 ML IR ONE (03:10)
[2017-09-03] MEDS: FORTAZ or TAZICEF INJ 1 GM in NS 100 ML IV + SPIKE MINIBAG* 100 ML IV SCH ×3 (05:08→21:30)
[2017-09-03] MEDS: SOLU-Medrol 125 MG VIAL IVP SCH ×3 (05:08→21:31)
[2017-09-03] MEDS: PERCOCET TAB 5/325 MG PO SCH ×3 (05:09→21:30)
[2017-09-03 06:05] LABS: BASOPHILS % (AUTO) 0.3 % (0.2-1.0); HEMATOCRIT 33.9 % (36.0-47.0); HEMOGLOBIN 11.5 g/dL (12.0-16.0); LYMPHOCYTES # (AUTO) 0.8 X10^3/uL (1.3-2.9); LYMPHOCYTES % (AUTO) 8.3 % (21.0-51.0); MONOCYTES # (AUTO) 0.3 x10^3/uL (0.3-0.8); MONOCYTES % (AUTO) 3.4 % (0.0-13.0); NEUTROPHILS # (AUTO) 8.5 x10^3/uL (2.2-4.8); PLATELET COUNT 324 X10^3/uL (150.0-450.0); RED BLOOD COUNT 3.73 X10^6/uL (3.5-5.4); RED CELL DISTRIBUTION WIDTH 14.4 % (11.6-16.5); WHITE BLOOD COUNT 9.7 X10^3/uL (3.6-10.0)
[2017-09-03 06:38] LABS: ALBUMIN 3.2 g/dL (3.4-5.0); CARBON DIOXIDE 34.4 mmol/L (21-32); COR CA(FOR HYPOALB) 9.6 mg/dL (8.5-10.1); CREATININE 1.29 mg/dL (0.55-1.02); TOTAL PROTEIN 7.9 g/dL (6.4-8.2)
[2017-09-03 07:39] VITALS: BMI 45.5
--- NOTE | 2017-09-03 07:39 | RAD ---
HISTORY: Low O2 sats Study: Chest AP portable Comparison: 09/01/2017 Findings: There is a poor present on the right. The heart is within normal limits in size. The diane are normal. The lungs are mildly hyperinflated but free of acute infiltrates. No pleural effusions are identifie d. The bony thorax is unremarkable. IMPRESSION: Lungs mildly hyperinflated but clear Reported By:
[2017-09-03] MEDS: LASIX IVP SCH ×3 (08:25→21:29)
[2017-09-03] MEDS: BROVANA IN SCH ×2 (09:31→20:16)
[2017-09-03] MEDS: PULMICORT NEB TX 0.5 MG NEB SCH ×2 (09:31→20:16)
[2017-09-03] MEDS: K-DUR TAB 20 MEQ PO SCH (09:38)
[2017-09-03] MEDS: LEVAQUIN PREMIX IV 750 MG 750 MG/150 ML BAG IV SCH (09:38)
[2017-09-03 10:51] LABS: ABG BASE EXCESS 15.5 mmol/L (-2.0-2.0)
[2017-09-03 10:53] LABS: ABG ALLEN TEST POS; ABG HCO3 40.7 mmol/L (22-26)
[2017-09-03] MEDS: CARDIZEM CD 240 MG PO SCH (12:14)
[2017-09-03] MEDS: ALDACTONE TAB 25 MG PO SCH (12:14)
[2017-09-03] MEDS: NS 250 ML IV 250 ML IV SCH ×2 (12:16→17:37)
--- NOTE | 2017-09-03 13:28 | PCM.PROG ---
Progress Note - Progress Note for Day of Date: 09/03/17 - Subjective Subjective: Patient is a 62-year-old white female who is an ER admission one day ago with severe shortness of breath, respiratory failure. This morning patient is tolerating nasal cannula for supplemental O2. Continue with moderate respiratory distress bilateral diminished lung sounds. Patient accidentally pulled out catheter during the night. Refused a Lasix dose this morning. Educated patient on diagnostic test results as well as labs, the need for IV Lasix to be continued. The patient appears agitated but agreeable with plan at this time. We'll continue supplemental O2, respiratory therapy, repeat ABG this morning continue cardiac monitoring repeat a.m. labs and a chest x-ray. - Past Medical Family Social History Past Med/Fam/Surg Hx: No changes since H&P Allergies: Allergies ketorolac [From Toradol] Allergy (Verified 09/01/17 22:40) nalbuphine [From Nubain] Allergy (Verified 08/17/17 23:19) Penicillins Allergy (Verified 08/17/17 23:19) Sulfa (Sulfonamide Antibiotics) [SULFA] Allergy (Verified 08/17/17 23:19) BETA BLOCKERS Allergy (Uncoded 08/17/17 23:19) - Review of Systems ROS: No change since H&P - Vital Signs and I&O's Vital Signs: Temperature 97.1 F Pulse Rate [Apical] 96 Pulse Rate 92 Respiratory Rate 24 Blood Pressure [Left Arm] 131/62 Blood Pressure [Right Arm] 152/76 Blood Pressure 176/81 O2 Sat by Pulse Oximetry 97 Intake and Output: Intake & Output 09/01/17 09/02/17 09/03/17 09/04/17 11:59 11:59 11:59 11:59 Intake Total 1100 920 Output Total 1601 Balance 1100 -681 - Physical Exam Oriented: Person Eyes: Normal Ear: Normal Nose: Normal Throat: Dry Respiratory: Diminished Cardiovascular: Tachycardia, Edema : Normal Auscultation: Bowel Sounds: Normal Tenderness: Epigastric Musculoskeletal: Right, Left, Shoulder, Knee, Back:Thoracic, Back:Lumbar, Motor Deficit, Sensory Deficit Psychiatric: Anxiety Affect: Anxious Speech Pattern: Unclear - Laboratory and Diagnostics Result Diagrams: 09/03/17 05:15 09/03/17 05:15 Labs: 09/02/17 16:23 Urine,Clean Catch Urine Culture - Preliminary Laboratory WBC 9.7 X10^3/uL (3.6-10.0) 09/03/17 05:15 RBC 3.73 X10^6/uL (3.5-5.4) 09/03/17 05:15 Hgb 11.5 g/dL (12.0-16.0) L 09/03/17 05:15 Hct 33.9 % (36.0-47.0) L 09/03/17 05:15 MCV 91.0 fL (80.0-100.0) 09/03/17 05:15 MCH 31.0 pg (27.0-34.0) 09/03/17 05:15 MCHC 34.0 g/dL (33.0-35.0) 09/03/17 05:15 RDW 14.4 % (11.6-16.5) 09/03/17 05:15 Plt Count 324 X10^3/uL (150.0-450.0) 09/03/17 05:15 MPV 8.0 fL (7.4-11.0) 09/03/17 05:15 Neut % 88.0 % (42.0-75.0) H 09/03/17 05:15 Lymph % 8.3 % (21.0-51.0) L 09/03/17 05:15 [place] % 3.4 % (0.0-13.0) 09/03/17 05:15 Eos % 0.0 % (0.9-2.9) L 09/03/17 05:15 Baso % 0.3 % (0.2-1.0) 09/03/17 05:15 Neut # 8.5 x10^3/uL (2.2-4.8) H 09/03/17 05:15 Lymph # 0.8 X10^3/uL (1.3-2.9) L 09/03/17 05:15 [place] # 0.3 x10^3/uL (0.3-0.8) 09/03/17 05:15 Eos # 0.0 x10^3/uL (0.0-0.2) 09/03/17 05:15 Baso # 0.0 X10^3/uL (0.0-0.1) 09/03/17 05:15 Absolute Nucleated RBC 0.0 /100WBC 09/03/17 05:15 INR Target Range - 09/01/17 22:50 INR 0.94 (0.8-1.3) 09/01/17 22:50 PTT 31.5 SECONDS (22.9-36.5) 09/01/17 22:50 PTT Comment - 09/01/17 22:50 Sample Site Right radial 09/03/17 10:30 ABG pH 7.510 (7.35-7.45) H 09/03/17 10:30 ABG pCO2 51.0 mmHg (35.0-45.0) H* 09/03/17 10:30 ABG pO2 69.0 mmHg (80.0-100.0) L 09/03/17 10:30 ABG HCO3 40.7 mmol/L (22-26) H* 09/03/17 10:30 ABG O2 Saturation 95.0 % (90-100) 09/03/17 10:30 ABG Base Excess 15.5 mmol/L (-2.0-2.0) H 09/03/17 10:30 Sameer Test Pos 09/03/17 10:30 A-a Gradient 124.0 mmHg 09/03/17 10:30 FiO2 36.000 09/03/17 10:30 Blood Gas Comments Ferm[place] well er 09/03/17 10:30 Sodium 139 mmol/L (136-145) 09/03/17 05:15 Corrected Sodium 141 mmol/L (136-145) 09/03/17 05:15 Potassium 3.4 mmol/L (3.5-5.1) L 09/03/17 05:15 Chloride 96 mmol/L (98-107) L 09/03/17 05:15 Carbon Dioxide 34.4 mmol/L (21-32) H 09/03/17 05:15 BUN 22 mg/dL (7-18) H 09/03/17 05:15 Creatinine 1.29 mg/dL (0.55-1.02) H 09/03/17 05:15 Est GFR (MDRD) Af Amer 54 (>60) L 09/03/17 05:15 Est GFR (MDRD) Non-Af 44 (>60) L 09/03/17 05:15 Glucose 171 mg/dL (65-99) H 09/03/17 05:15 POC Glucose (mg/dL) 210 mg/dL (65-99) H 09/03/17 05:23 Calcium 9.0 mg/dL (8.5-10.1) 09/03/17 05:15 Corrected Calcium 9.6 mg/dL (8.5-10.1) 09/03/17 05:15 Magnesium 2.0 mg/dL (1.7-2.9) 09/01/17 22:28 Total Bilirubin 0.50 mg/dL (0.2-1.0) 09/03/17 05:15 AST 22 Units/L (15-37) 09/03/17 05:15 ALT 66 Units/L (12-78) 09/03/17 05:15 Alkaline Phosphatase 135 Units/L (46-116) H 09/03/17 05:15 Creatine Kinase 48 Units/L (26-192) 09/02/17 11:14 CK-MB (CK-2) < 1.0 ng/mL (0-4.0) 09/02/17 11:14 CK/CKMB % Calc 2.1 % (<4) 09/02/17 11:14 Troponin I < 0.02 ng/mL (0-1.5) 09/02/17 11:14 B-Natriuretic Peptide 170 pg/mL (0-79) H 09/01/17 22:28 Total Protein 7.9 g/dL (6.4-8.2) 09/03/17 05:15 Albumin 3.2 g/dL (3.4-5.0) L 09/03/17 05:15 Globulin 4.7 g/dL (2.5-4.5) H 09/03/17 05:15 Albumin/Globulin Ratio 0.7 Ratio (1.1-2.1) L 09/03/17 05:15 Specimen Type Catherized urine 09/02/17 02:05 Urine Color Pale yellow (YELLOW) 09/02/17 02:05 Urine Appearance Clear (CLEAR) 09/02/17 02:05 Urine pH 5.0 (5.0 - 8.0) 09/02/17 02:05 Ur Specific [place] 1.015 (1.000-1.030) 09/02/17 02:05 Urine Protein Negative (NEGATIVE) 09/02/17 02:05 Urine Glucose (UA) Negative (NEGATIVE) 09/02/17 02:05 Urine Ketones Negative (NEGATIVE) 09/02/17 02:05 Urine Occult Blood Negative (NEGATIVE) 09/02/17 02:05 Urine Nitrite Negative (NEGATIVE) 09/02/17 02:05 Urine Bilirubin Negative (NEGATIVE) 09/02/17 02:05 Urine Urobilinogen Normal (NORMAL) 09/02/17 02:05 Ur Leukocyte Esterase Negative (NEGATIVE) 09/02/17 02:05 Urine RBC None seen /HPF (NEGATIVE) 09/02/17 02:05 Urine WBC None seen /HPF (NEGATIVE) 09/02/17 02:05 Ur Squamous Epith Cells Rare /HPF (NEGATIVE) 09/02/17 02:05 Urine Bacteria Negative /HPF (NEGATIVE) 09/02/17 02:05 Ur Culture Indicated? No/not indicated 09/02/17 02:05 - Plan (1) Respiratory distress Status: Acute Plan: REPEAT ABG, RESP THERAPY DUO NEBS, PULMICORT BROVANNA. LASIX IV, STRICT I & OS. RESUME HOME MEDS. REPEAT AM LABS, CONTIUOUS PULSE OX, SUPPORTIVE CARE. CONFIRM CODE STATUS, PT STATES "I DO NOT WANT A TUBE IN MY THROAT" (2) COPD exacerbation Status: Acute (3) Respiratory failure with hypercapnia Status: Acute Qualifiers: Chronicity: acute on chronic Qualified Code(s): J96.22 - Acute and chronic respiratory failure with hypercapnia (4) CHF (congestive heart failure) Status: Chronic (5) Chronic kidney disease (CKD) Status: Chronic (6) DDD (degenerative disc disease), lumbosacral Status: Chronic (7) DHARA (generalized anxiety disorder) Status: Chronic
[2017-09-03] MEDS: COLACE CAP 100 MG PO SCH (21:28)
[2017-09-03] MEDS: ELAVIL PO SCH (21:28)
[2017-09-03] MEDS: NEURONTIN TAB 600 MG PO SCH ×2 (21:29→21:30)
[2017-09-03] MEDS: REQUIP PO SCH (21:29)
[2017-09-03] MEDS ORDERED: AMBIEN PO PRN ×2 (21:48→21:50)
[2017-09-03] MEDS ORDERED: AMBIEN ONE (21:52)
[2017-09-04] MEDS: DUONEB 0.5 MG/3 MG NEB SCH ×6 (01:55→21:22)
[2017-09-04] MEDS ORDERED: NS 500 ML IV 500 ML IV ONE (05:01)
[2017-09-04] MEDS: FORTAZ or TAZICEF INJ 1 GM in NS 100 ML IV + SPIKE MINIBAG* 100 ML IV SCH ×3 (05:19→21:23)
[2017-09-04] MEDS: NEURONTIN TAB 600 MG PO SCH ×3 (05:20→21:24)
[2017-09-04] MEDS: SOLU-Medrol 125 MG VIAL IVP SCH ×3 (05:20→21:23)
[2017-09-04] MEDS: PERCOCET TAB 5/325 MG PO SCH ×3 (05:20→21:25)
[2017-09-04 06:08] LABS: BASOPHILS % (AUTO) 0.1 % (0.2-1.0); HEMATOCRIT 30.6 % (36.0-47.0); HEMOGLOBIN 10.4 g/dL (12.0-16.0); LYMPHOCYTES # (AUTO) 0.5 X10^3/uL (1.3-2.9); LYMPHOCYTES % (AUTO) 5.6 % (21.0-51.0); MEAN CORPUSCULAR VOLUME 91.2 fL (80.0-100.0); MEAN PLATELET VOLUME 7.8 fL (7.4-11.0); MONOCYTES # (AUTO) 0.3 x10^3/uL (0.3-0.8); MONOCYTES % (AUTO) 3.5 % (0.0-13.0); NEUTROPHILS # (AUTO) 8.5 x10^3/uL (2.2-4.8); NEUTROPHILS % (AUTO) 90.8 % (42.0-75.0); PLATELET COUNT 246 X10^3/uL (150.0-450.0); RED BLOOD COUNT 3.36 X10^6/uL (3.5-5.4); RED CELL DISTRIBUTION WIDTH 14.5 % (11.6-16.5); WHITE BLOOD COUNT 9.3 X10^3/uL (3.6-10.0)
[2017-09-04 06:26] LABS: ALBUMIN 2.9 g/dL (3.4-5.0); CALCIUM 8.7 mg/dL (8.5-10.1); CARBON DIOXIDE 34.4 mmol/L (21-32); COR CA(FOR HYPOALB) 9.6 mg/dL (8.5-10.1); CREATININE 1.46 mg/dL (0.55-1.02)
[2017-09-04] MEDS ORDERED: MAG-OX TAB PO PRN (06:30)
[2017-09-04] MEDS ORDERED: POTASSIUM CHL 60 MEQ/NS 0.45% 500 ML IV PRN (06:30)
[2017-09-04] MEDS ORDERED: POTASSIUM CHL 40 MEQ/NS 0.45% 500 ML IV PRN (06:30)
[2017-09-04] MEDS ORDERED: MAGNESIUM SULFATE 1 GM/100 mL PREMIX 1 GM/100 ML BAG IV PRN (06:30)
[2017-09-04] MEDS ORDERED: POTASSIUM CHLORIDE LIQ 20 MEQ UDC PO PRN (06:30)
[2017-09-04] MEDS ORDERED: K-RIDER 10 MEQ/NS 100 ML 10 MEQ/100 ML BAG IV PRN (06:30)
[2017-09-04] MEDS ORDERED: K-LYTE EFFERVESCENT PO PRN (06:30)
[2017-09-04] MEDS: NS 250 ML IV 250 ML IV SCH ×2 (06:33→19:35)
[2017-09-04 06:42] LABS: BAND NEUTROPHILS % 5 % (0-10)
[2017-09-04 06:55] LABS: PLATELET MORPHOLOGY COMMENT NORMAL (NORMAL)
[2017-09-04] MEDS ORDERED: K-DUR TAB 20 MEQ PO ONE (08:00)
--- NOTE | 2017-09-04 08:07 | RAD ---
HISTORY: Shortness of breath Study: Chest AP portable Comparison: 09/03/2017 Findings: There is a right-sided port in good position. The heart is within normal limits in size. The diane are normal. The lungs are well inflated and free of acute alveolar infiltrates. No pleural effusions are identified. The bony thorax is unremarkable. IMPRESSION: Lungs clear Reported By:
[2017-09-04] MEDS: ALDACTONE TAB 25 MG PO SCH (08:37)
[2017-09-04] MEDS: LASIX IVP SCH ×2 (08:37→21:23)
[2017-09-04] MEDS: CARDIZEM CD 240 MG PO SCH (08:37)
[2017-09-04] MEDS: LEVAQUIN PREMIX IV 750 MG 750 MG/150 ML BAG IV SCH (08:37)
[2017-09-04] MEDS: K-DUR TAB 20 MEQ PO SCH (08:37)
[2017-09-04] MEDS: COLACE CAP 100 MG PO SCH ×2 (08:38→21:25)
[2017-09-04] MEDS: PULMICORT NEB TX 0.5 MG NEB SCH ×2 (09:30→21:22)
[2017-09-04] MEDS: BROVANA IN SCH ×2 (09:30→21:23)
--- NOTE | 2017-09-04 12:47 | PCM.PROG ---
Progress Note - Progress Note for Day of Date: 09/04/17 - Subjective Subjective: Patient is a 62-year-old white female who is an ER admission one day ago with severe shortness of breath, respiratory failure. This morning patient is tolerating nasal cannula for supplemental O2. Improving resp distress. Patient more awake and alert, encouraged pt to use bedside commode. continuing resp therapy and current medication regimen - Past Medical Family Social History Past Med/Fam/Surg Hx: No changes since H&P Allergies: Allergies ketorolac [From Toradol] Allergy (Verified 09/01/17 22:40) nalbuphine [From Nubain] Allergy (Verified 08/17/17 23:19) Penicillins Allergy (Verified 08/17/17 23:19) Sulfa (Sulfonamide Antibiotics) [SULFA] Allergy (Verified 08/17/17 23:19) BETA BLOCKERS Allergy (Uncoded 08/17/17 23:19) - Review of Systems ROS: No change since H&P - Vital Signs and I&O's Vital Signs: Temperature 97.1 F Pulse Rate [Apical] 97 Pulse Rate 97 Respiratory Rate 16 Blood Pressure [Left Arm] 130/68 Blood Pressure [Right Arm] 152/76 Blood Pressure 176/81 O2 Sat by Pulse Oximetry 98 Intake and Output: Intake & Output 09/02/17 09/03/17 09/04/17 09/05/17 11:59 11:59 11:59 11:59 Intake Total 4509 564 0882 500 Output Total 1601 1152 1200 Balance 1100 -681 1016 -700 - Physical Exam Oriented: Person Eyes: Normal Ear: Normal Nose: Normal Throat: Dry Respiratory: Diminished Cardiovascular: Tachycardia, Edema : Normal Auscultation: Bowel Sounds: Normal Tenderness: Epigastric Musculoskeletal: Right, Left, Shoulder, Knee, Back:Thoracic, Back:Lumbar, Motor Deficit, Sensory Deficit Psychiatric: Anxiety Affect: Anxious Speech Pattern: Clear, Appropriate - Laboratory and Diagnostics Result Diagrams: 09/04/17 05:40 09/04/17 05:40 Labs: 09/02/17 14:14 Blood Blood Culture - Preliminary 09/02/17 14:11 Blood Blood Culture - Preliminary 09/02/17 16:23 Urine,Clean Catch Urine Culture - Final Laboratory WBC 9.3 X10^3/uL (3.6-10.0) 09/04/17 05:40 RBC 3.36 X10^6/uL (3.5-5.4) L 09/04/17 05:40 Hgb 10.4 g/dL (12.0-16.0) L 09/04/17 05:40 Hct 30.6 % (36.0-47.0) L 09/04/17 05:40 MCV 91.2 fL (80.0-100.0) 09/04/17 05:40 MCH 31.0 pg (27.0-34.0) 09/04/17 05:40 MCHC 34.0 g/dL (33.0-35.0) 09/04/17 05:40 RDW 14.5 % (11.6-16.5) 09/04/17 05:40 Plt Count 246 X10^3/uL (150.0-450.0) 09/04/17 05:40 Plt Count Comment Adequate (ADEQUATE) 09/04/17 05:40 MPV 7.8 fL (7.4-11.0) 09/04/17 05:40 Neut % 90.8 % (42.0-75.0) H 09/04/17 05:40 Lymph % 5.6 % (21.0-51.0) L 09/04/17 05:40 [place] % 3.5 % (0.0-13.0) 09/04/17 05:40 Eos % 0.0 % (0.9-2.9) L 09/04/17 05:40 Baso % 0.1 % (0.2-1.0) L 09/04/17 05:40 Neut # 8.5 x10^3/uL (2.2-4.8) H 09/04/17 05:40 Lymph # 0.5 X10^3/uL (1.3-2.9) L 09/04/17 05:40 [place] # 0.3 x10^3/uL (0.3-0.8) 09/04/17 05:40 Eos # 0.0 x10^3/uL (0.0-0.2) 09/04/17 05:40 Baso # 0.0 X10^3/uL (0.0-0.1) 09/04/17 05:40 Absolute Nucleated RBC 0.0 /100WBC 09/04/17 05:40 Total Counted 100 09/04/17 05:40 Neutrophils % (Manual) 82 % (39-76) H 09/04/17 05:40 Band Neutrophils % 5 % (0-10) 09/04/17 05:40 Lymphocytes % (Manual) 11 % (13-43) L 09/04/17 05:40 Monocytes % (Manual) 2 % (4-9) L 09/04/17 05:40 Plt Morphology Comment Normal (NORMAL) 09/04/17 05:40 RBC Morphology Normal (NORMAL) 09/04/17 05:40 INR Target Range - 09/01/17 22:50 INR 0.94 (0.8-1.3) 09/01/17 22:50 PTT 31.5 SECONDS (22.9-36.5) 09/01/17 22:50 PTT Comment - 09/01/17 22:50 Sample Site Right radial 09/03/17 10:30 ABG pH 7.510 (7.35-7.45) H 09/03/17 10:30 ABG pCO2 51.0 mmHg (35.0-45.0) H* 09/03/17 10:30 ABG pO2 69.0 mmHg (80.0-100.0) L 09/03/17 10:30 ABG HCO3 40.7 mmol/L (22-26) H* 09/03/17 10:30 ABG O2 Saturation 95.0 % (90-100) 09/03/17 10:30 ABG Base Excess 15.5 mmol/L (-2.0-2.0) H 09/03/17 10:30 Sameer Test Pos 09/03/17 10:30 A-a Gradient 124.0 mmHg 09/03/17 10:30 FiO2 36.000 09/03/17 10:30 Blood Gas Comments Fermín well er 09/03/17 10:30 Sodium 141 mmol/L (136-145) 09/04/17 05:40 Corrected Sodium 144 mmol/L (136-145) 09/04/17 05:40 Potassium 2.8 mmol/L (3.5-5.1) L* 09/04/17 05:40 Chloride 98 mmol/L (98-107) 09/04/17 05:40 Carbon Dioxide 34.4 mmol/L (21-32) H 09/04/17 05:40 BUN 31 mg/dL (7-18) H 09/04/17 05:40 Creatinine 1.46 mg/dL (0.55-1.02) H 09/04/17 05:40 Est GFR (MDRD) Af Amer 46 (>60) L 09/04/17 05:40 Est GFR (MDRD) Non-Af 38 (>60) L 09/04/17 05:40 Glucose 205 mg/dL (65-99) H 09/04/17 05:40 POC Glucose (mg/dL) 210 mg/dL (65-99) H 09/03/17 05:23 Calcium 8.7 mg/dL (8.5-10.1) 09/04/17 05:40 Corrected Calcium 9.6 mg/dL (8.5-10.1) 09/04/17 05:40 Magnesium 2.1 mg/dL (1.7-2.9) 09/04/17 05:40 Total Bilirubin 0.30 mg/dL (0.2-1.0) 09/04/17 05:40 AST 14 Units/L (15-37) L 09/04/17 05:40 ALT 50 Units/L (12-78) 09/04/17 05:40 Alkaline Phosphatase 106 Units/L (46-116) 09/04/17 05:40 Creatine Kinase 48 Units/L (26-192) 09/02/17 11:14 CK-MB (CK-2) < 1.0 ng/mL (0-4.0) 09/02/17 11:14 CK/CKMB % Calc 2.1 % (<4) 09/02/17 11:14 Troponin I < 0.02 ng/mL (0-1.5) 09/02/17 11:14 B-Natriuretic Peptide 170 pg/mL (0-79) H 09/01/17 22:28 Total Protein 7.0 g/dL (6.4-8.2) 09/04/17 05:40 Albumin 2.9 g/dL (3.4-5.0) L 09/04/17 05:40 Globulin 4.1 g/dL (2.5-4.5) 09/04/17 05:40 Albumin/Globulin Ratio 0.7 Ratio (1.1-2.1) L 09/04/17 05:40 Specimen Type Catherized urine 09/02/17 02:05 Urine Color Pale yellow (YELLOW) 09/02/17 02:05 Urine Appearance Clear (CLEAR) 09/02/17 02:05 Urine pH 5.0 (5.0 - 8.0) 09/02/17 02:05 Ur Specific [place] 1.015 (1.000-1.030) 09/02/17 02:05 Urine Protein Negative (NEGATIVE) 09/02/17 02:05 Urine Glucose (UA) Negative (NEGATIVE) 09/02/17 02:05 Urine Ketones Negative (NEGATIVE) 09/02/17 02:05 Urine Occult Blood Negative (NEGATIVE) 09/02/17 02:05 Urine Nitrite Negative (NEGATIVE) 09/02/17 02:05 Urine Bilirubin Negative (NEGATIVE) 09/02/17 02:05 Urine Urobilinogen Normal (NORMAL) 09/02/17 02:05 Ur Leukocyte Esterase Negative (NEGATIVE) 09/02/17 02:05 Urine RBC None seen /HPF (NEGATIVE) 09/02/17 02:05 Urine WBC None seen /HPF (NEGATIVE) 09/02/17 02:05 Ur Squamous Epith Cells Rare /HPF (NEGATIVE) 09/02/17 02:05 Urine Bacteria Negative /HPF (NEGATIVE) 09/02/17 02:05 Ur Culture Indicated? No/not indicated 09/02/17 02:05 - Plan (1) Respiratory distress Status: Acute Plan: CONTINUE RESP THERAPY DUO NEBS, PULMICORT BROVANNA. LASIX IV, STRICT I & OS. RESUME HOME MEDS. REPEAT AM LABS, CONTIUOUS PULSE OX, SUPPORTIVE CARE (2) COPD exacerbation Status: Acute Plan: CONTINUE STEROIDS, RESP THERAPY (3) Respiratory failure with hypercapnia Status: Acute Qualifiers: Chronicity: acute on chronic Qualified Code(s): J96.22 - Acute and chronic respiratory failure with hypercapnia (4) CHF (congestive heart failure) Status: Chronic Plan: LASIX, BB, CARDIAC MONITORING (5) Chronic kidney disease (CKD) Status: Chronic (6) DDD (degenerative disc disease), lumbosacral Status: Chronic (7) DHARA (generalized anxiety disorder) Status: Chronic
[2017-09-04] MEDS ORDERED: NICOTINE PATCH TD ONE (13:21)
[2017-09-04] MEDS: NICOTINE PATCH TD SCH (13:23)
[2017-09-04] MEDS: ZANAFLEX PO PRN (14:55)
[2017-09-04] MEDS: ELAVIL PO SCH (21:24)
[2017-09-04] MEDS: XANAX PO PRN (21:24)
[2017-09-04] MEDS: REQUIP PO SCH (21:25)
[2017-09-05] MEDS: DUONEB 0.5 MG/3 MG NEB SCH ×6 (01:19→20:12)
[2017-09-05] MEDS: NEURONTIN TAB 600 MG PO SCH ×3 (05:01→21:24)
[2017-09-05] MEDS: PERCOCET TAB 5/325 MG PO SCH ×3 (05:01→21:24)
[2017-09-05] MEDS: FORTAZ or TAZICEF INJ 1 GM in NS 100 ML IV + SPIKE MINIBAG* 100 ML IV SCH ×3 (05:02→21:23)
[2017-09-05] MEDS: SOLU-Medrol 125 MG VIAL IVP SCH ×3 (05:10→21:24)
[2017-09-05 06:39] LABS: BASOPHILS % (AUTO) 0.1 % (0.2-1.0); HEMATOCRIT 27.6 % (36.0-47.0); HEMOGLOBIN 9.3 g/dL (12.0-16.0); LYMPHOCYTES # (AUTO) 0.5 X10^3/uL (1.3-2.9); LYMPHOCYTES % (AUTO) 5.7 % (21.0-51.0); MEAN CORPUSCULAR HEMOGLOBIN 31.4 pg (27.0-34.0); MEAN CORPUSCULAR HGB CONC 33.8 g/dL (33.0-35.0); MEAN CORPUSCULAR VOLUME 92.9 fL (80.0-100.0); MEAN PLATELET VOLUME 8.1 fL (7.4-11.0); MONOCYTES # (AUTO) 0.4 x10^3/uL (0.3-0.8); MONOCYTES % (AUTO) 5.2 % (0.0-13.0); NEUTROPHILS # (AUTO) 7.3 x10^3/uL (2.2-4.8); PLATELET COUNT 203 X10^3/uL (150.0-450.0); RED BLOOD COUNT 2.97 X10^6/uL (3.5-5.4); RED CELL DISTRIBUTION WIDTH 14.8 % (11.6-16.5); WHITE BLOOD COUNT 8.2 X10^3/uL (3.6-10.0)
[2017-09-05 06:43] LABS: ALBUMIN 2.6 g/dL (3.4-5.0); CALCIUM 8.3 mg/dL (8.5-10.1); COR CA(FOR HYPOALB) 9.4 mg/dL (8.5-10.1); CREATININE 1.28 mg/dL (0.55-1.02); TOTAL PROTEIN 6.2 g/dL (6.4-8.2)
[2017-09-05] MEDS: NICOTINE PATCH TD SCH (08:09)
[2017-09-05] MEDS: LASIX IVP SCH ×2 (08:09→21:25)
[2017-09-05] MEDS: K-DUR TAB 20 MEQ PO SCH (08:10)
[2017-09-05] MEDS: LEVAQUIN PREMIX IV 750 MG 750 MG/150 ML BAG IV SCH (08:10)
[2017-09-05] MEDS: CARDIZEM CD 240 MG PO SCH (08:10)
[2017-09-05] MEDS: ALDACTONE TAB 25 MG PO SCH (08:11)
[2017-09-05] MEDS: COLACE CAP 100 MG PO SCH ×2 (08:11→21:50)
[2017-09-05] MEDS: PULMICORT NEB TX 0.5 MG NEB SCH ×2 (08:15→20:12)
[2017-09-05] MEDS: BROVANA IN SCH ×2 (09:15→20:12)
[2017-09-05] MEDS: XANAX PO PRN (10:51)
[2017-09-05] MEDS ORDERED: HumuLIN R ONE (10:53)
[2017-09-05] MEDS: NS 250 ML IV 250 ML IV SCH ×2 (12:46→21:46)
[2017-09-05] MEDS: ZANAFLEX PO PRN ×2 (13:57→21:46)
--- NOTE | 2017-09-05 18:47 | PCM.PROG ---
Progress Note - Progress Note for Day of Date: 09/05/17 - Subjective Subjective: Patient is a 62-year-old white female who is an ER admission one day ago with severe shortness of breath, respiratory failure. This morning patient is tolerating nasal cannula for supplemental O2. Improving resp distress. Patient more awake and alert, complains of continued weakness. Discussed transfer for LTAC for continued care. repeat am labs, resp therapy - Past Medical Family Social History Past Med/Fam/Surg Hx: No changes since H&P Allergies: Allergies ketorolac [From Toradol] Allergy (Verified 09/01/17 22:40) nalbuphine [From Nubain] Allergy (Verified 08/17/17 23:19) Penicillins Allergy (Verified 08/17/17 23:19) Sulfa (Sulfonamide Antibiotics) [SULFA] Allergy (Verified 08/17/17 23:19) BETA BLOCKERS Allergy (Uncoded 08/17/17 23:19) - Review of Systems ROS: No change since H&P - Vital Signs and I&O's Vital Signs: Temperature 97.3 F Pulse Rate [Apical] 94 Pulse Rate 74 Respiratory Rate 24 Blood Pressure [Left Arm] 136/68 Blood Pressure [Right Arm] 152/76 Blood Pressure 176/81 O2 Sat by Pulse Oximetry 136 Intake and Output: Intake & Output 09/03/17 09/04/17 09/05/17 09/06/17 11:59 11:59 11:59 11:59 Intake Total 920 2168 3360 745 Output Total 1601 1152 2875 600 Balance -681 1016 485 145 - Physical Exam Oriented: Person Eyes: Normal Ear: Normal Nose: Normal Throat: Dry Respiratory: Diminished Cardiovascular: Tachycardia, Edema : Normal Auscultation: Bowel Sounds: Normal Tenderness: Epigastric Musculoskeletal: Right, Left, Shoulder, Knee, Back:Thoracic, Back:Lumbar, Motor Deficit, Sensory Deficit Psychiatric: Anxiety Affect: Anxious Speech Pattern: Clear, Appropriate - Laboratory and Diagnostics Result Diagrams: 09/05/17 05:25 09/05/17 05:25 Labs: 09/02/17 14:14 Blood Blood Culture - Preliminary 09/02/17 14:11 Blood Blood Culture - Preliminary 09/02/17 16:23 Urine,Clean Catch Urine Culture - Final Laboratory WBC 8.2 X10^3/uL (3.6-10.0) 09/05/17 05:25 RBC 2.97 X10^6/uL (3.5-5.4) L 09/05/17 05:25 Hgb 9.3 g/dL (12.0-16.0) L 09/05/17 05:25 Hct 27.6 % (36.0-47.0) L 09/05/17 05:25 MCV 92.9 fL (80.0-100.0) 09/05/17 05:25 MCH 31.4 pg (27.0-34.0) 09/05/17 05:25 MCHC 33.8 g/dL (33.0-35.0) 09/05/17 05:25 RDW 14.8 % (11.6-16.5) 09/05/17 05:25 Plt Count 203 X10^3/uL (150.0-450.0) 09/05/17 05:25 Plt Count Comment Adequate (ADEQUATE) 09/04/17 05:40 MPV 8.1 fL (7.4-11.0) 09/05/17 05:25 Neut % 89.0 % (42.0-75.0) H 09/05/17 05:25 Lymph % 5.7 % (21.0-51.0) L 09/05/17 05:25 [place] % 5.2 % (0.0-13.0) 09/05/17 05:25 Eos % 0.0 % (0.9-2.9) L 09/05/17 05:25 Baso % 0.1 % (0.2-1.0) L 09/05/17 05:25 Neut # 7.3 x10^3/uL (2.2-4.8) H 09/05/17 05:25 Lymph # 0.5 X10^3/uL (1.3-2.9) L 09/05/17 05:25 [place] # 0.4 x10^3/uL (0.3-0.8) 09/05/17 05:25 Eos # 0.0 x10^3/uL (0.0-0.2) 09/05/17 05:25 Baso # 0.0 X10^3/uL (0.0-0.1) 09/05/17 05:25 Absolute Nucleated RBC 0.1 /100WBC 09/05/17 05:25 Total Counted 100 09/04/17 05:40 Neutrophils % (Manual) 82 % (39-76) H 09/04/17 05:40 Band Neutrophils % 5 % (0-10) 09/04/17 05:40 Lymphocytes % (Manual) 11 % (13-43) L 09/04/17 05:40 Monocytes % (Manual) 2 % (4-9) L 09/04/17 05:40 Plt Morphology Comment Normal (NORMAL) 09/04/17 05:40 RBC Morphology Normal (NORMAL) 09/04/17 05:40 INR Target Range - 09/01/17 22:50 INR 0.94 (0.8-1.3) 09/01/17 22:50 PTT 31.5 SECONDS (22.9-36.5) 09/01/17 22:50 PTT Comment - 09/01/17 22:50 Sample Site Right radial 09/03/17 10:30 ABG pH 7.510 (7.35-7.45) H 09/03/17 10:30 ABG pCO2 51.0 mmHg (35.0-45.0) H* 09/03/17 10:30 ABG pO2 69.0 mmHg (80.0-100.0) L 09/03/17 10:30 ABG HCO3 40.7 mmol/L (22-26) H* 09/03/17 10:30 ABG O2 Saturation 95.0 % (90-100) 09/03/17 10:30 ABG Base Excess 15.5 mmol/L (-2.0-2.0) H 09/03/17 10:30 Sameer Test Pos 09/03/17 10:30 A-a Gradient 124.0 mmHg 09/03/17 10:30 FiO2 36.000 09/03/17 10:30 Blood Gas Comments Fermín well er 09/03/17 10:30 Sodium 137 mmol/L (136-145) 09/05/17 05:25 Corrected Sodium 142 mmol/L (136-145) 09/05/17 05:25 Potassium 3.8 mmol/L (3.5-5.1) 09/05/17 05:25 Chloride 98 mmol/L (98-107) 09/05/17 05:25 Carbon Dioxide 32.0 mmol/L (21-32) 09/05/17 05:25 BUN 33 mg/dL (7-18) H 09/05/17 05:25 Creatinine 1.28 mg/dL (0.55-1.02) H 09/05/17 05:25 Est GFR (MDRD) Af Amer 54 (>60) L 09/05/17 05:25 Est GFR (MDRD) Non-Af 45 (>60) L 09/05/17 05:25 Glucose 320 mg/dL (65-99) H 09/05/17 05:25 POC Glucose (mg/dL) 210 mg/dL (65-99) H 09/03/17 05:23 Calcium 8.3 mg/dL (8.5-10.1) L 09/05/17 05:25 Corrected Calcium 9.4 mg/dL (8.5-10.1) 09/05/17 05:25 Magnesium 2.1 mg/dL (1.7-2.9) 09/04/17 05:40 Total Bilirubin 0.20 mg/dL (0.2-1.0) 09/05/17 05:25 AST 13 Units/L (15-37) L 09/05/17 05:25 ALT 41 Units/L (12-78) 09/05/17 05:25 Alkaline Phosphatase 129 Units/L (46-116) H 09/05/17 05:25 Creatine Kinase 48 Units/L (26-192) 09/02/17 11:14 CK-MB (CK-2) < 1.0 ng/mL (0-4.0) 09/02/17 11:14 CK/CKMB % Calc 2.1 % (<4) 09/02/17 11:14 Troponin I < 0.02 ng/mL (0-1.5) 09/02/17 11:14 B-Natriuretic Peptide 170 pg/mL (0-79) H 09/01/17 22:28 Total Protein 6.2 g/dL (6.4-8.2) L 09/05/17 05:25 Albumin 2.6 g/dL (3.4-5.0) L 09/05/17 05:25 Globulin 3.6 g/dL (2.5-4.5) 09/05/17 05:25 Albumin/Globulin Ratio 0.7 Ratio (1.1-2.1) L 09/05/17 05:25 Specimen Type Catherized urine 09/02/17 02:05 Urine Color Pale yellow (YELLOW) 09/02/17 02:05 Urine Appearance Clear (CLEAR) 09/02/17 02:05 Urine pH 5.0 (5.0 - 8.0) 09/02/17 02:05 Ur Specific [place] 1.015 (1.000-1.030) 09/02/17 02:05 Urine Protein Negative (NEGATIVE) 09/02/17 02:05 Urine Glucose (UA) Negative (NEGATIVE) 09/02/17 02:05 Urine Ketones Negative (NEGATIVE) 09/02/17 02:05 Urine Occult Blood Negative (NEGATIVE) 09/02/17 02:05 Urine Nitrite Negative (NEGATIVE) 09/02/17 02:05 Urine Bilirubin Negative (NEGATIVE) 09/02/17 02:05 Urine Urobilinogen Normal (NORMAL) 09/02/17 02:05 Ur Leukocyte Esterase Negative (NEGATIVE) 09/02/17 02:05 Urine RBC None seen /HPF (NEGATIVE) 09/02/17 02:05 Urine WBC None seen /HPF (NEGATIVE) 09/02/17 02:05 Ur Squamous Epith Cells Rare /HPF (NEGATIVE) 09/02/17 02:05 Urine Bacteria Negative /HPF (NEGATIVE) 09/02/17 02:05 Ur Culture Indicated? No/not indicated 09/02/17 02:05 - Plan (1) Respiratory distress Status: Acute Plan: CONTINUE RESP THERAPY DUO NEBS, PULMICORT BROMALCOLMNA. LASIX IV, STRICT I & OS. RESUME HOME MEDS. REPEAT AM LABS, CONTIUOUS PULSE OX, SUPPORTIVE CARE (2) COPD exacerbation Status: Inactive Plan: CONTINUE STEROIDS, RESP THERAPY (3) Respiratory failure with hypercapnia Status: Inactive Qualifiers: Chronicity: acute on chronic Qualified Code(s): J96.22 - Acute and chronic respiratory failure with hypercapnia (4) CHF (congestive heart failure) Status: Chronic Plan: LASIX, BB, CARDIAC MONITORING (5) Chronic kidney disease (CKD) Status: Chronic (6) DDD (degenerative disc disease), lumbosacral Status: Chronic (7) DHARA (generalized anxiety disorder) Status: Chronic
[2017-09-05] MEDS: ELAVIL PO SCH (21:23)
[2017-09-05] MEDS: REQUIP PO SCH (21:24)
[2017-09-05] MEDS: XANAX PO SCH (21:25)
[2017-09-06] MEDS: DUONEB 0.5 MG/3 MG NEB SCH ×5 (01:15→09:00)
[2017-09-06] MEDS: XANAX PO SCH ×2 (04:24→13:42)
[2017-09-06 06:22] LABS: BASOPHILS % (AUTO) 0.1 % (0.2-1.0); HEMATOCRIT 27.6 % (36.0-47.0); HEMOGLOBIN 9.3 g/dL (12.0-16.0); LYMPHOCYTES # (AUTO) 0.7 X10^3/uL (1.3-2.9); LYMPHOCYTES % (AUTO) 6.9 % (21.0-51.0); MEAN CORPUSCULAR HEMOGLOBIN 31.3 pg (27.0-34.0); MEAN CORPUSCULAR HGB CONC 33.7 g/dL (33.0-35.0); MEAN CORPUSCULAR VOLUME 92.9 fL (80.0-100.0); MEAN PLATELET VOLUME 7.7 fL (7.4-11.0); MONOCYTES # (AUTO) 0.5 x10^3/uL (0.3-0.8); MONOCYTES % (AUTO) 5.6 % (0.0-13.0); NEUTROPHILS # (AUTO) 8.4 x10^3/uL (2.2-4.8); NEUTROPHILS % (AUTO) 87.4 % (42.0-75.0); PLATELET COUNT 212 X10^3/uL (150.0-450.0); RED BLOOD COUNT 2.98 X10^6/uL (3.5-5.4); RED CELL DISTRIBUTION WIDTH 14.8 % (11.6-16.5); WHITE BLOOD COUNT 9.6 X10^3/uL (3.6-10.0)
[2017-09-06 06:33] LABS: ALANINE AMINOTRANSFERASE 41 Units/L (12-78); ALBUMIN 2.7 g/dL (3.4-5.0); ALKALINE PHOSPHATASE 134 Units/L (46-116); ASPARTATE AMINO TRANSFERASE 19 Units/L (15-37); BLOOD UREA NITROGEN 33 mg/dL (7-18); CALCIUM 8.4 mg/dL (8.5-10.1); CARBON DIOXIDE 32.4 mmol/L (21-32); CHLORIDE 98 mmol/L (98-107); COR CA(FOR HYPOALB) 9.4 mg/dL (8.5-10.1); COR NA(FOR HYPERGLY) 141 mmol/L (136-145); CREATININE 1.15 mg/dL (0.55-1.02); SODIUM 137 mmol/L (136-145); TOTAL PROTEIN 6.1 g/dL (6.4-8.2); eGFR BLACK RACES > 60 (>60); eGFR NON BLACK RACES 50 (>60)
[2017-09-06] MEDS: PERCOCET TAB 5/325 MG PO SCH ×2 (06:39→13:41)
[2017-09-06] MEDS: FORTAZ or TAZICEF INJ 1 GM in NS 100 ML IV + SPIKE MINIBAG* 100 ML IV SCH ×3 (06:39→13:41)
[2017-09-06] MEDS: NEURONTIN TAB 600 MG PO SCH ×2 (06:39→13:42)
[2017-09-06] MEDS: SOLU-Medrol 125 MG VIAL IVP SCH ×2 (06:40→13:42)
[2017-09-06 07:03] LABS: PLATELET MORPHOLOGY COMMENT NORMAL (NORMAL)
[2017-09-06] MEDS ORDERED: MILK OF MAGNESIA PO SCH (09:00)
[2017-09-06] MEDS: LEVAQUIN PREMIX IV 750 MG 750 MG/150 ML BAG IV SCH (09:23)
[2017-09-06] MEDS: ALDACTONE TAB 25 MG PO SCH (09:24)
[2017-09-06] MEDS: COLACE CAP 100 MG PO SCH ×3 (09:24→09:26)
[2017-09-06] MEDS: CARDIZEM CD 240 MG PO SCH (09:24)
[2017-09-06] MEDS: LASIX IVP SCH (09:25)
[2017-09-06] MEDS: K-DUR TAB 20 MEQ PO SCH (09:25)
[2017-09-06] MEDS: NICOTINE PATCH TD SCH (09:26)
[2017-09-06] MEDS ORDERED: XANAX ONE (10:01)
[2017-09-06] MEDS ORDERED: XANAX PO ONE (10:04)
[2017-09-06] MEDS: NS 250 ML IV 250 ML IV SCH (11:23)
[2017-09-06 14:15] VITALS: BP 198/104
== END 2017-09-06 14:10 | DRG 189 ==
LOC: ER 22:09 → ICU 09-02 01:57 → ER 09-02 02:43
PROVIDERS: ADMIT Obstetrics & Gynecology Obstetrics; ATTEND Internal Medicine
DX: J96.22 Acute and chronic respiratory failure with hypercapnia (principal); J18.8 Other pneumonia, unspecified organism; J44.1 Chronic obstructive pulmonary disease with (acute) exacerbation; R40.1 Stupor; I50.9 Heart failure, unspecified; N18.9 Chronic kidney disease, unspecified; I25.10 Atherosclerotic heart disease of native coronary artery without angina pectoris; F41.8 Other specified anxiety disorders; M13.89 Other specified arthritis, multiple sites; R94.31 Abnormal electrocardiogram [ECG] [EKG]; K21.9 Gastro-esophageal reflux disease without esophagitis; M51.37 Other intervertebral disc degeneration, lumbosacral region
CPT/HCPCS: 36415; 36600; 71045; 80053; 81001; 82550; 82553; 82803; 83735; 83880; 84132; 84484; 85025; 85610; 85730; 87040; 87086; 93005; 93010; 94640; 94660; A4216; A4222; A4618; A7030; J0713; J1815; J1940; J1956; J2930; J7620; J7626

== ENCOUNTER 2017-10-22 11:29 | Inpatient (IN) | payer OTHER, MEDICAID ==
[2017-10-22] MEDS ORDERED: DUONEB 0.5 MG/3 MG NEB ONE (11:44)
--- NOTE | 2017-10-22 11:55 | DR.AMS ---
HPI - Time Seen Time seen: 11:35 - PCP Primary Care Physician: jamila - HPI Comment HPI Comment: recent d/c from [facility]. Pt states she 'had everything' as reason for admit. Will get records. Pt states symptoms started after she fell 8 days ago. - Complaint Chief Complaint:: SOB, chest pain, generalized weakness x 8 days - Reviewed Nurses Notes Reviewed: Yes - Source History Provided: Patient - Mode of Arrival Mode of Arrival: EMS - Timing Onset of Chief Complaint: 10/14/17 Symptoms: Worsening - Duration Duration: Since Onset - Severity Severity: Moderate PMH - PMH Past Medical History: Yes Past Medical History: Anxiety, Arthritis, Asthma, CHF, COPD, Coronary Artery Disease, Hypertension Past Surgical History: Yes Surgical History: Abdominal Surgery, Appendectomy, Bowel Resection, Cholecystectomy - Family History History of Family Medical Conditions: Yes Family Medical History: Hypertension - Social History Does patient currently use any type of tobacco product: Yes Have you used tobacco products in the last 12 months: Yes Type of Tobacco Use: Cigarettes How many years tobacco product used: 30 Does any household member use tobacco: No Alcohol Use: None Do you use any recreational Drugs:: No Lives With: Family Lives Where: Home - infectious screening In the last 2 months have you had wt loss of >10#?: NO Have you had fever, night sweats or hemotysis?: No Have you traveled outside the country in the last 6 months?: No Isolation: Standard ROS - Review of Systems Constitutional: Malaise, Weakness, Fatigue Eyes: No Symptoms Reported ENTM: No Symptoms Reported Respiratoy: Non-Productive Cough, Short of Breath, Wheezing (pt states she's out of pulmicort) Cardiovascular: Chest Pain Genitourinary: No Symptoms Reported Neurological: Weakness Musculoskeletal: Right (right arm pain after a fall 8 days ago), Arm Integumentary: No Symptoms Reported, Wound (rt arm, being tx'd by home health nurses) Hematologic/Lymphatic: No Symptoms Reported Endocrine: No Symptoms Reported Psychiatric: No Symptoms Reported All Other Systems: Reviewed and Negative PE - Vitals Vital Signs: Temp Pulse Resp BP BP BP Pulse Ox 10/22/17 11:40 98.9 F 98 H 18 119/67 96 09/06/17 13:00 198/104 198/104 09/02/17 22:00 152/76 - General Limitations: No Limitations General Appearance: Alert, In No Apparent Distress - Head Head Exam: Normal Inspection, Atraumatic - Eyes Eye exam: Normal Appearance Pupils: Regular, Round: Bilateral - ENT ENT Exam: Normal Exam, Normal Oropharynx Mouth Exam: Normal Inspection Throat Exam: Normal Inspection - Neck Neck Exam: Normal Inspection, Full ROM, Trachea Midline. negative: Tenderness, Meningismus - Chest Chest Inspection: Normal Inspection - Respiratory Respiratory Exam: Bilateral Wheezing, Bilateral Rhonchi, Bilateral Crackles, Bilateral Decreased Breath Sounds - Cardiovascular Cardiovascular Exam: Regular Rate, Normal Rhythm, Normal Heart Sounds - Abdominal Exam Abdominal Exam: Normal Inspection, Normal Bowel Sounds, Soft - Extremities Extremities Exam: Normal Inspection, Normal Capillary Refill, Edema - Neurological Neurological Exam: Alert, Oriented X3 Speech: Fluid Speech - Psychological Psychiatric Exam: Normal Affect, Normal Mood - Skin Skin Exam: Warm, Dry ROR - Labs Reviewed Result Diagrams: 10/22/17 11:39 10/22/17 11:39 - Diagnosis Discharge Problem: COPD exacerbation - Discharge Plan Disposition: ADMITTED INPATIENT Condition: Stable - Follow ups/Referrals - Instructions
[2017-10-22 12:10] LABS: BASOPHILS # (AUTO) 0.1 X10^3/uL (0.0-0.1); BASOPHILS % (AUTO) 0.5 % (0.2-1.0); HEMATOCRIT 36.8 % (36.0-47.0); HEMOGLOBIN 12.1 g/dL (12.0-16.0); LYMPHOCYTES # (AUTO) 0.7 X10^3/uL (1.3-2.9); LYMPHOCYTES % (AUTO) 3.5 % (21.0-51.0); MEAN CORPUSCULAR VOLUME 96.7 fL (80.0-100.0); MEAN PLATELET VOLUME 8.1 fL (7.4-11.0); MONOCYTES # (AUTO) 1.5 x10^3/uL (0.3-0.8); MONOCYTES % (AUTO) 7.9 % (0.0-13.0); NEUTROPHILS # (AUTO) 16.9 x10^3/uL (2.2-4.8); NEUTROPHILS % (AUTO) 88.1 % (42.0-75.0); PLATELET COUNT 249 X10^3/uL (150.0-450.0); RED CELL DISTRIBUTION WIDTH 16.7 % (11.6-16.5); WHITE BLOOD COUNT 19.3 X10^3/uL (3.6-10.0)
[2017-10-22 12:15] LABS: ABG BASE EXCESS 22.9 mmol/L (-2.0-2.0)
[2017-10-22 12:17] LABS: ABG HCO3 51.8 mmol/L (22-26)
[2017-10-22 12:18] LABS: ALANINE AMINOTRANSFERASE 68 Units/L (12-78); ALBUMIN 3.4 g/dL (3.4-5.0); ALKALINE PHOSPHATASE 101 Units/L (46-116); ASPARTATE AMINO TRANSFERASE 37 Units/L (15-37); BLOOD UREA NITROGEN 31 mg/dL (7-18); CALCIUM 8.1 mg/dL (8.5-10.1); CHLORIDE 96 mmol/L (98-107); COR NA(FOR HYPERGLY) 141 mmol/L (136-145); CREATININE 1.07 mg/dL (0.55-1.02); MAGNESIUM 2.2 mg/dL (1.7-2.9); SODIUM 141 mmol/L (136-145); TOTAL PROTEIN 6.9 g/dL (6.4-8.2); eGFR BLACK RACES > 60 (>60); eGFR NON BLACK RACES 55 (>60)
[2017-10-22 12:18] LABS: ABG ALLEN TEST POS
[2017-10-22 12:19] LABS: BILIRUBIN,URINE NEGATIVE (NEGATIVE); BLOOD/HEMOGLOBIN,URINE NEGATIVE (NEGATIVE); GLUCOSE, URINE NEGATIVE (NEGATIVE); KETONES,URINE NEGATIVE (NEGATIVE); LEUKOCYTE ESTERASE ,URINE NEGATIVE (NEGATIVE); NITRITES,URINE NEGATIVE (NEGATIVE); PROTEIN,URINE NEGATIVE (NEGATIVE); UROBILINOGEN,URINE NORMAL (NORMAL)
[2017-10-22 12:26] LABS: APPEARANCE,URINE CLEAR (CLEAR); BACTERIA,URINE NEGATIVE /HPF (NEGATIVE); COLOR,URINE YELLOW (YELLOW); RBC,URINE NONE SEEN /HPF (NONE SEEN); SQUAMOUS EPITHELIAL CELL,UR NEGATIVE /HPF (NEGATIVE)
[2017-10-22 12:27] LABS: CKMB % 5.2 % (<4); CREATINE KINASE 23 Units/L (26-192); CREATINE KINASE MB 1.2 ng/mL (0-4.0); TROPONIN I < 0.02 ng/mL (0-1.5)
--- NOTE | 2017-10-22 12:27 | RAD ---
History: Dyspnea and chest pain. Exam: Single-view chest. Comparison: 09/04/2017. Findings: The trachea is midline. The cardiac silhouette is enlarged. There is a stable right-sided brock julio [address] ter CVL. Chronic lung changes remain without evidence for edema or other changes. There is no pneumot horax. No lobar infiltrate or effusion is seen. Bones are stable. Impression: Stable chest without acute changes, as above. Reported By:
[2017-10-22 12:29] LABS: B-TYPE NATRIURETIC PEPTIDE 82.1 pg/mL (0-79)
[2017-10-22 12:30] LABS: CARBON DIOXIDE > 45.0 mmol/L (21-32)
[2017-10-22] MEDS ORDERED: AMBIEN PO PRN (13:13)
[2017-10-22] MEDS ORDERED: MORPHINE SULFATE INJ 2 MG INJ IVP ONE (13:25)
[2017-10-22] MEDS ORDERED: ZOFRAN INJ 4 MG VIAL IVP ONE (13:26)
[2017-10-22] MEDS ORDERED: ZOFRAN INJ 4 MG VIAL ONE (13:28)
[2017-10-22] MEDS ORDERED: MORPHINE SULFATE INJ 2 MG INJ ONE (13:28)
[2017-10-22 14:18] VITALS: BMI 46.0
[2017-10-22] MEDS: PERCOCET TAB 5/325 MG PO PRN (15:32)
[2017-10-22] MEDS: NEURONTIN CAP 300 MG PO SCH ×2 (15:33→22:08)
[2017-10-22] MEDS: DUONEB 0.5 MG/3 MG NEB SCH ×3 (16:54→20:10)
[2017-10-22] MEDS ORDERED: ALBUTEROL SULFATE INH SCH (17:00)
[2017-10-22] MEDS ORDERED: IPRATROPIUM INH SCH (17:00)
[2017-10-22] MEDS ORDERED: [UNRECOGNIZED DRUG - OTHER] INH SCH (17:00)
[2017-10-22 18:09] LABS: CKMB % 5.6 % (<4); CREATINE KINASE 18 Units/L (26-192); CREATINE KINASE MB < 1.0 ng/mL (0-4.0); TROPONIN I < 0.02 ng/mL (0-1.5)
[2017-10-22] MEDS: XANAX PO PRN (20:06)
[2017-10-22] MEDS: ZANTAC PO SCH (20:06)
[2017-10-22] MEDS: ZANAFLEX PO PRN (20:06)
[2017-10-22] MEDS: REQUIP PO SCH (20:06)
[2017-10-22] MEDS: ELAVIL PO SCH (20:06)
[2017-10-22] MEDS: PHENERGAN TAB 25 MG PO PRN (20:06)
[2017-10-22] MEDS ORDERED: PATIENT'S HOME MEDICATION (Levocetirizine Dihydrochloride [Levocetirizine Dihydrochloride] PO SCH (21:00)
[2017-10-23] MEDS: DUONEB 0.5 MG/3 MG NEB SCH ×5 (00:03→20:55)
[2017-10-23 00:33] LABS: CKMB % 6.3 % (<4); CREATINE KINASE 16 Units/L (26-192); CREATINE KINASE MB < 1.0 ng/mL (0-4.0); TROPONIN I < 0.02 ng/mL (0-1.5)
[2017-10-23] MEDS: PERCOCET TAB 5/325 MG PO PRN (01:03)
[2017-10-23] MEDS: ROBITUSSIN AC PO PRN (03:18)
[2017-10-23] MEDS ORDERED: NS 250 ML IV 250 ML IV ONE (04:24)
--- NOTE | 2017-10-23 04:59 | RAD ---
Chest, AP portable Indication: Shortness of breath Comparison: 10/22/2017 Findings: Cardiac silhouette enlargement is unchanged. There are stable chronic interstitial changes. Left retrocardiac opacity, with differential considerations including small effusion, atelectasis, a nd/or infiltrate. Right subclavian Port-A-Cath is unchanged. Impression: Retrocardiac opacity with differential considerations as above. Stable cardiomegaly and chronic interstitial changes. Reported By:
[2017-10-23] MEDS: NEURONTIN CAP 300 MG PO SCH ×3 (06:16→21:07)
[2017-10-23 06:44] LABS: BASOPHILS # (AUTO) 0.1 X10^3/uL (0.0-0.1); BASOPHILS % (AUTO) 0.3 % (0.2-1.0); EOSINOPHILS % (AUTO) 0.1 % (0.9-2.9); HEMOGLOBIN 12.1 g/dL (12.0-16.0); LYMPHOCYTES # (AUTO) 2.3 X10^3/uL (1.3-2.9); LYMPHOCYTES % (AUTO) 11.9 % (21.0-51.0); MEAN CORPUSCULAR HEMOGLOBIN 31.9 pg (27.0-34.0); MEAN CORPUSCULAR HGB CONC 32.8 g/dL (33.0-35.0); MEAN CORPUSCULAR VOLUME 97.3 fL (80.0-100.0); MEAN PLATELET VOLUME 8.2 fL (7.4-11.0); MONOCYTES % (AUTO) 5.1 % (0.0-13.0); NEUTROPHILS # (AUTO) 16.3 x10^3/uL (2.2-4.8); NEUTROPHILS % (AUTO) 82.6 % (42.0-75.0); PLATELET COUNT 258 X10^3/uL (150.0-450.0); RED CELL DISTRIBUTION WIDTH 16.6 % (11.6-16.5); WHITE BLOOD COUNT 19.7 X10^3/uL (3.6-10.0)
[2017-10-23 07:11] LABS: BAND NEUTROPHILS % 4 % (0-10); PLATELET MORPHOLOGY COMMENT NORMAL (NORMAL)
[2017-10-23 07:18] LABS: ALANINE AMINOTRANSFERASE 100 Units/L (12-78); ALBUMIN 2.7 g/dL (3.4-5.0); ALKALINE PHOSPHATASE 105 Units/L (46-116); ASPARTATE AMINO TRANSFERASE 58 Units/L (15-37); BLOOD UREA NITROGEN 35 mg/dL (7-18); CALCIUM 8.4 mg/dL (8.5-10.1); CHLORIDE 96 mmol/L (98-107); COR CA(FOR HYPOALB) 9.4 mg/dL (8.5-10.1); CREATININE 2.12 mg/dL (0.55-1.02); SODIUM 139 mmol/L (136-145); eGFR BLACK RACES 30 (>60); eGFR NON BLACK RACES 25 (>60)
[2017-10-23 07:46] LABS: CARBON DIOXIDE 43.8 mmol/L (21-32)
[2017-10-23] MEDS: K-DUR TAB 20 MEQ PO SCH (08:50)
[2017-10-23] MEDS: ZANTAC PO SCH ×2 (08:51→21:07)
[2017-10-23] MEDS: ALDACTONE TAB 25 MG PO SCH (08:52)
[2017-10-23] MEDS: SINGULAIR TAB 10 MG PO SCH (08:52)
[2017-10-23] MEDS: LASIX PO SCH (08:52)
[2017-10-23] MEDS: CARDIZEM CD 240 MG PO SCH (08:52)
[2017-10-23] MEDS: SOLU-Medrol 40 MG VIAL IVP SCH ×2 (08:56→17:20)
[2017-10-23] MEDS ORDERED: DILTIAZEM HCL PO SCH (09:00)
[2017-10-23] MEDS ORDERED: FLUTICASONE PROPIONATE SCH (09:00)
[2017-10-23] MEDS ORDERED: PATIENT'S HOME MEDICATION (Potassium Chloride [Potassium Chloride] 20 MEQ) PO SCH (09:00)
[2017-10-23] MEDS ORDERED: SPIRONOLACTONE 25 MG PO SCH (09:00)
[2017-10-23] MEDS: FLONASE NASAL SPRAY ENOSTRIL SCH (09:33)
[2017-10-23 10:17] LABS: ABG HCO3 45.8 mmol/L (22-26)
[2017-10-23] MEDS ORDERED: NS 1000 ML 1,000 ML ONE (12:40)
[2017-10-23] MEDS: LEVAQUIN PREMIX IV 500 MG 500 MG/100 ML BAG IV SCH (12:51)
[2017-10-23] MEDS ORDERED: NS 1000 ML 1,000 ML IV SCH (13:00)
--- NOTE | 2017-10-23 13:39 | DR.H&P ---
H&P - History & Physical for Day of: H&P Date: 10/22/17 - Chief Complaint Chief Complaint: SOB, chest pain, generalized weakness x 8 days - Allergies Allergies/Adverse Reactions: Allergies Allergy/AdvReac Type Severity Reaction Status Date / Time ketorolac [From Toradol] Allergy Verified 09/01/17 22:40 nalbuphine [From Nubain] Allergy Verified 08/17/17 23:19 Penicillins Allergy Verified 08/17/17 23:19 Sulfa (Sulfonamide Allergy Verified 08/17/17 23:19 Antibiotics) [SULFA] BETA BLOCKERS Allergy Uncoded 08/17/17 23:19 - History of Present Illness History of Present Illness: PT IS 62WF WHO WAS ER ADMISSION AFTER PRESENTING WITH AMS, SOB, CHEST PAIN AND WEAKNESS FOR OVER A WEEK. PT WAS RECENTLY RELEASED FROM LTAC CARE IN [facility]. PT HAS RESP FAILURE ON TRILOGY AT HOME AND CONTINOUS O2. PT HAS PMH OF CHF, COPD, CAD, OA,HTN. PT ADMITTED TO ICU FOR EVALUATION AND TREATMENT FOR ACUTE ON CHRONIC RESP FAILURE, SOB. - Past Medical History Past Medical History: Anxiety, Arthritis, Asthma, CHF, COPD, Coronary Artery Disease, GERD, Hypertension - Past Surgical History Surgical History: Abdominal Surgery, Appendectomy, Bowel Resection, Cholecystectomy - Family History Family Medical History: Hypertension - Social History Does patient currently use any type of tobacco product: Yes Have you used tobacco products in the last 12 months: Yes Type of Tobacco Use: Cigarettes How many years tobacco product used: 30 Does any household member use tobacco: No Alcohol Use: None Drug Use: None - Medications Home Medications: Alprazolam [Xanax] 0.75 mg PO BID PRN 10/22/17 [History Confirmed 10/22/17] Benzonatate 200 mg PO Q8H PRN 10/22/17 [History Confirmed 10/22/17] Docusate Sodium 100 mg PO HS PRN 10/22/17 [History Confirmed 10/22/17] Hydrocodone Bit/Homatrop Me-Br [Hydrocodone Compound Syrup] 10 ml PO Q6H PRN [History Confirmed 10/22/17] Prednisone [PREDNISONE TAB 20 MG *] 1 tab PO BID 10/22/17 [History Confirmed ] Clonidine [[id number]] 0.2 mg TD WEEKLY 10/23/17 [History Confirmed 10/23/17 ] - Review of Systems Constitutional: Weakness Eyes: No Symptoms Reported ENT: No Symptoms Reported Respiratory: Shortness of Breath, SOB with Excertion, Wheezing Cardiovascular: Chest Pain, Edema Gastrointestinal: Nausea Genitourinary: Retention Musculoskeletal: Shoulder Pain, Back Pain, Leg Pain, Neck Pain Skin: No Symptoms Reported Neurological: Weakness (generalized ) - Physical Exam Vital Signs: Temperature 96.8 F Pulse Rate [Apical] 118 Pulse Rate 113 Respiratory Rate 30 Blood Pressure [Left Arm] 107/62 Blood Pressure [Right Arm] 152/76 Blood Pressure 119/67 O2 Sat by Pulse Oximetry 98 Oriented: Person Eyes: Normal Ear: Normal Nose: Normal Throat: Dry Respiratory: Wheezes Throughout, RLL Diminished, LLL Diminished Cardiovascular: Tachycardia, Edema : Normal Auscultation: Bowel Sounds: Normal Palpation: Normal Tenderness: Normal Skin: Decreased Turgur Musculoskeletal: Right, Left, Shoulder, Back:Thoracic, Back:Lumbar, Motor Deficit Psychiatric: Anxiety Affect: Anxious Speech Pattern: Appropriate (limited due to sob) - Assessment/Plan (1) Respiratory distress Status: Acute Plan: admit, ICU. CARDIAC MONITORING, RESP THERAPY, BIPAP. ADMISSION ABG, SUPPLEMENATL O2. JET NEBS, IV STEROIDS, IV ATBX. REPEAT AM LABS, VERIFY HOME MEDS. AM CXR, TODD FOR STRICT I & OS (2) COPD exacerbation Status: Acute (3) Mental status alteration Qualifiers: Altered mental status type: stupor Qualified Code(s): R40.1 - Stupor Status: Acute Plan: due to hypoxia, resp distress (4) CHF (congestive heart failure) Status: Chronic (5) Essential hypertension Status: Chronic (6) DHARA (generalized anxiety disorder) Status: Chronic (7) GERD (gastroesophageal reflux disease) Status: Chronic
[2017-10-23] MEDS: NS 1000 ML 1,000 ML IV SCH (16:09)
[2017-10-23 17:15] LABS: CREATININE 3.68 mg/dL (0.55-1.02)
--- NOTE | 2017-10-23 17:51 | PCM.PROG ---
Progress Note - Progress Note for Day of Date: 10/23/17 - Subjective Subjective: 62 WF ER ADMITTED ONE DAY AGO WITH RESP DISTRESS. PT CONTINUES WITH LABORED RESP THIS AM, ON BIPAP, DECREASED URINE OUTPUT. PLAN TO INCREASE IV FLUIDS FOR SLOW HYDRATION, STRICT I & OS. CONTINUE PULMONARY TOILETING, IV ATBX , BIPAP, AM CXR AND ABG. REPEAT AM LABS - Past Medical Family Social History Past Med/Fam/Surg Hx: No changes since H&P Allergies: Allergies ketorolac [From Toradol] Allergy (Verified 09/01/17 22:40) nalbuphine [From Nubain] Allergy (Verified 08/17/17 23:19) Penicillins Allergy (Verified 08/17/17 23:19) Sulfa (Sulfonamide Antibiotics) [SULFA] Allergy (Verified 08/17/17 23:19) BETA BLOCKERS Allergy (Uncoded 08/17/17 23:19) - Review of Systems ROS: No change since H&P - Vital Signs and I&O's Vital Signs: Temperature 96.2 F Pulse Rate [Apical] 97 Pulse Rate 113 Respiratory Rate 35 Blood Pressure [Left Arm] 111/56 Blood Pressure [Right Arm] 152/76 Blood Pressure 119/67 O2 Sat by Pulse Oximetry 99 Intake and Output: Intake & Output 10/21/17 10/22/17 10/23/17 10/24/17 11:59 11:59 11:59 11:59 Intake Total 1240 180 Output Total 1650 3 Balance -410 177 - Physical Exam Oriented: Person Eyes: Normal Ear: Normal Nose: Normal Throat: Dry Respiratory: Diminished, Wheezes Cardiovascular: Tachycardia, Edema : Normal Auscultation: Bowel Sounds: Normal Tenderness: Normal Skin: Decreased Turgur Musculoskeletal: Right, Left, Shoulder, Back:Thoracic, Back:Lumbar, Motor Deficit Psychiatric: Anxiety Affect: Anxious Speech Pattern: Appropriate (limited due to sob) - Laboratory and Diagnostics Result Diagrams: 10/23/17 05:50 10/23/17 16:40 Labs: 10/22/17 12:10 Urine,Clean Catch Urine Culture - Preliminary 10/22/17 12:31 Blood Blood Culture - Preliminary Laboratory WBC 19.7 X10^3/uL (3.6-10.0) H 10/23/17 05:50 RBC 3.80 X10^6/uL (3.5-5.4) 10/23/17 05:50 Hgb 12.1 g/dL (12.0-16.0) 10/23/17 05:50 Hct 37.0 % (36.0-47.0) 10/23/17 05:50 MCV 97.3 fL (80.0-100.0) 10/23/17 05:50 MCH 31.9 pg (27.0-34.0) 10/23/17 05:50 MCHC 32.8 g/dL (33.0-35.0) L 10/23/17 05:50 RDW 16.6 % (11.6-16.5) H 10/23/17 05:50 Plt Count 258 X10^3/uL (150.0-450.0) 10/23/17 05:50 Plt Count Comment Adequate (ADEQUATE) 10/23/17 05:50 MPV 8.2 fL (7.4-11.0) 10/23/17 05:50 Neut % (Auto) 82.6 % (42.0-75.0) H 10/23/17 05:50 Lymph % (Auto) 11.9 % (21.0-51.0) L 10/23/17 05:50 [place] % (Auto) 5.1 % (0.0-13.0) 10/23/17 05:50 Eos % (Auto) 0.1 % (0.9-2.9) L 10/23/17 05:50 Baso % (Auto) 0.3 % (0.2-1.0) 10/23/17 05:50 Neut # (Auto) 16.3 x10^3/uL (2.2-4.8) H 10/23/17 05:50 Lymph # (Auto) 2.3 X10^3/uL (1.3-2.9) 10/23/17 05:50 [place] # (Auto) 1.0 x10^3/uL (0.3-0.8) H 10/23/17 05:50 Eos # (Auto) 0.0 x10^3/uL (0.0-0.2) 10/23/17 05:50 Baso # (Auto) 0.1 X10^3/uL (0.0-0.1) 10/23/17 05:50 Absolute Nucleated RBC 0.3 /100WBC 10/23/17 05:50 Total Counted 100 10/23/17 05:50 Neutrophils % (Manual) 77 % (39-76) H 10/23/17 05:50 Band Neutrophils % 4 % (0-10) 10/23/17 05:50 Lymphocytes % (Manual) 15 % (13-43) 10/23/17 05:50 Monocytes % (Manual) 4 % (4-9) 10/23/17 05:50 Plt Morphology Comment Normal (NORMAL) 10/23/17 05:50 RBC Morphology Normal (NORMAL) 10/23/17 05:50 INR Target Range - 10/22/17 12:11 INR 0.84 (0.8-1.3) 10/22/17 12:11 APTT 23.0 SECONDS (22.9-36.5) 10/22/17 12:11 PTT Comment - 10/22/17 12:11 D-Dimer 279 ng/mL (0-400) 10/22/17 11:39 Sample Site Lb 10/23/17 10:11 ABG pH 7.430 (7.35-7.45) 10/23/17 10:11 ABG pCO2 69.0 mmHg (35.0-45.0) H* 10/23/17 10:11 ABG pO2 95.0 mmHg (80.0-100.0) 10/23/17 10:11 ABG HCO3 45.8 mmol/L (22-26) H* 10/23/17 10:11 ABG O2 Saturation 98.0 % (90-100) 10/23/17 10:11 ABG Base Excess 18.0 mmol/L (-2.0-2.0) H 10/23/17 10:11 Sameer Test N/a 10/23/17 10:11 A-a Gradient 460.0 mmHg 10/23/17 10:11 FiO2 90.000 10/23/17 10:11 Blood Gas Comments Pt baltazar well. cdn 10/23/17 10:11 Sodium 139 mmol/L (136-145) 10/23/17 05:50 Corrected Sodium TNP 10/23/17 05:50 Potassium 5.1 mmol/L (3.5-5.1) 10/23/17 05:50 Chloride 96 mmol/L (98-107) L 10/23/17 05:50 Carbon Dioxide 43.8 mmol/L (21-32) H* 10/23/17 05:50 BUN 50 mg/dL (7-18) H 10/23/17 16:40 Creatinine 3.68 mg/dL (0.55-1.02) H 10/23/17 16:40 Est GFR (MDRD) Af Amer 30 (>60) L 10/23/17 05:50 Est GFR (MDRD) Non-Af 25 (>60) L 10/23/17 05:50 Glucose 93 mg/dL (65-99) 10/23/17 05:50 Lactic Acid 0.9 mmol/L (0.4-2.0) 10/22/17 12:31 Calcium 8.4 mg/dL (8.5-10.1) L 10/23/17 05:50 Corrected Calcium 9.4 mg/dL (8.5-10.1) 10/23/17 05:50 Magnesium 2.2 mg/dL (1.7-2.9) 10/22/17 11:39 Total Bilirubin 1.20 mg/dL (0.2-1.0) H 10/23/17 05:50 AST 58 Units/L (15-37) H 10/23/17 05:50 ALT 100 Units/L (12-78) H 10/23/17 05:50 Alkaline Phosphatase 105 Units/L (46-116) 10/23/17 05:50 Creatine Kinase 16 Units/L (26-192) L 10/22/17 23:59 CK-MB (CK-2) < 1.0 ng/mL (0-4.0) 10/22/17 23:59 CK/CKMB % Calc 6.3 % (<4) 10/22/17 23:59 Troponin I < 0.02 ng/mL (0-1.5) 10/22/17 23:59 B-Natriuretic Peptide 82.1 pg/mL (0-79) H 10/22/17 11:39 Total Protein 6.0 g/dL (6.4-8.2) L 10/23/17 05:50 Albumin 2.7 g/dL (3.4-5.0) L 10/23/17 05:50 Globulin 3.3 g/dL (2.5-4.5) 10/23/17 05:50 Albumin/Globulin Ratio 0.8 Ratio (1.1-2.1) L 10/23/17 05:50 Specimen Type Clean catch urine 10/22/17 12:10 Urine Color Yellow (YELLOW) 10/22/17 12:10 Urine Appearance Clear (CLEAR) 10/22/17 12:10 Urine pH 7.0 (5.0 - 8.0) 10/22/17 12:10 Ur Specific [place] 1.010 (1.000-1.030) 10/22/17 12:10 Urine Protein Negative (NEGATIVE) 10/22/17 12:10 Urine Glucose (UA) Negative (NEGATIVE) 10/22/17 12:10 Urine Ketones Negative (NEGATIVE) 10/22/17 12:10 Urine Occult Blood Negative (NEGATIVE) 10/22/17 12:10 Urine Nitrite Negative (NEGATIVE) 10/22/17 12:10 Urine Bilirubin Negative (NEGATIVE) 10/22/17 12:10 Urine Urobilinogen Normal (NORMAL) 10/22/17 12:10 Ur Leukocyte Esterase Negative (NEGATIVE) 10/22/17 12:10 Urine RBC None seen /HPF (NONE SEEN) 10/22/17 12:10 Urine WBC None seen /HPF (NONE SEEN) 10/22/17 12:10 Ur Squamous Epith Cells Negative /HPF (NEGATIVE) 10/22/17 12:10 Urine Bacteria Negative /HPF (NEGATIVE) 10/22/17 12:10 Ur Culture Indicated? No/not indicated 10/22/17 12:10 Urine Opiates Screen Negative (NEG=<300) 10/22/17 12:10 Urine Methadone Screen Negative (NEG=<300) 10/22/17 12:10 Ur Barbiturates Screen Negative (NEG=<200) 10/22/17 12:10 Ur Phencyclidine Scrn Negative (NEG=<25) 10/22/17 12:10 Ur Amphetamines Screen Negative (NEG=<1000) 10/22/17 12:10 U Benzodiazepines Scrn Positive (NEG=<200) A 10/22/17 12:10 Urine Cocaine Screen Negative (NEG=<300) 10/22/17 12:10 U Marijuana (THC) Screen Negative (NEG=<50) 10/22/17 12:10 - Plan (1) Respiratory distress Status: Acute Plan: CARDIAC MONITORING, RESP THERAPY, BIPAP. AM ABG, SUPPLEMENTAL O2, BIPAP. JET NEBS, IV STEROIDS, IV ATBX. REPEAT AM LABS, VERIFY HOME MEDS. AM CXR, TODD FOR STRICT I & OS (2) COPD exacerbation Status: Acute (3) Mental status alteration Status: Acute Qualifiers: Altered mental status type: stupor Qualified Code(s): R40.1 - Stupor Plan: due to hypoxia, resp distress (4) CHF (congestive heart failure) Status: Chronic (5) Essential hypertension Status: Chronic (6) DHARA (generalized anxiety disorder) Status: Chronic (7) GERD (gastroesophageal reflux disease) Status: Chronic
[2017-10-23] MEDS: PULMICORT NEB TX 0.5 MG NEB SCH (20:55)
[2017-10-23] MEDS: BROVANA IN SCH (20:55)
[2017-10-23] MEDS: REQUIP PO SCH (21:07)
[2017-10-23] MEDS: ELAVIL PO SCH (21:07)
[2017-10-24] MEDS: SOLU-Medrol 40 MG VIAL IVP SCH ×3 (01:04→16:50)
[2017-10-24] MEDS: DUONEB 0.5 MG/3 MG NEB SCH ×6 (01:06→21:44)
[2017-10-24] MEDS: PERCOCET TAB 5/325 MG PO PRN ×4 (01:16→23:30)
[2017-10-24] MEDS: ROBITUSSIN AC PO PRN ×3 (02:26→18:58)
[2017-10-24] MEDS: NS 1000 ML 1,000 ML IV SCH ×2 (05:15→18:15)
[2017-10-24 05:42] LABS: LACTIC ACID 2.2 mmol/L (0.4-2.0)
[2017-10-24 05:44] LABS: CALCIUM 8.1 mg/dL (8.5-10.1); CARBON DIOXIDE 36.8 mmol/L (21-32); COR CA(FOR HYPOALB) 9.7 mg/dL (8.5-10.1); CREATININE 2.9 mg/dL (0.55-1.02); TOTAL PROTEIN 6.1 g/dL (6.4-8.2)
[2017-10-24 05:53] LABS: BASOPHILS % (AUTO) 0.1 % (0.2-1.0); HEMATOCRIT 30.3 % (36.0-47.0); HEMOGLOBIN 10.2 g/dL (12.0-16.0); LYMPHOCYTES # (AUTO) 0.5 X10^3/uL (1.3-2.9); LYMPHOCYTES % (AUTO) 2.3 % (21.0-51.0); MEAN CORPUSCULAR HEMOGLOBIN 32.3 pg (27.0-34.0); MEAN CORPUSCULAR HGB CONC 33.5 g/dL (33.0-35.0); MEAN CORPUSCULAR VOLUME 96.3 fL (80.0-100.0); MEAN PLATELET VOLUME 8.3 fL (7.4-11.0); MONOCYTES # (AUTO) 0.5 x10^3/uL (0.3-0.8); MONOCYTES % (AUTO) 2.8 % (0.0-13.0); NEUTROPHILS # (AUTO) 18.4 x10^3/uL (2.2-4.8); NEUTROPHILS % (AUTO) 94.8 % (42.0-75.0); PLATELET COUNT 205 X10^3/uL (150.0-450.0); RED BLOOD COUNT 3.15 X10^6/uL (3.5-5.4); RED CELL DISTRIBUTION WIDTH 16.6 % (11.6-16.5); WHITE BLOOD COUNT 19.4 X10^3/uL (3.6-10.0)
[2017-10-24] MEDS: NEURONTIN CAP 300 MG PO SCH ×3 (06:35→21:05)
[2017-10-24 06:38] LABS: BAND NEUTROPHILS % 3 % (0-10)
[2017-10-24 06:39] LABS: PLATELET MORPHOLOGY COMMENT NORMAL (NORMAL)
--- NOTE | 2017-10-24 06:57 | RAD ---
HISTORY: Shortness of breath, respiratory failure Study: Single-view chest Comparison: 10/23/2017. Findings: Cardiac monitoring leads are noted on chest. Right-sided Port-A-Cath is present with the tip in the c avoatrial junction region. Trachea is midline. There is cardiomegaly with aortic uncoiling and athero sclerotic calcification of the aortic arch. Increased in left pleural effusion is seen. There is incr easing left retrocardiac density. Minimal linear atelectasis is present in the right lung base withou t consolidation. IMPRESSION: Cardiomegaly. Increase in left retrocardiac consolidation and pleural fluid. Reported By:
[2017-10-24] MEDS: CARDIZEM CD 240 MG PO SCH (09:12)
[2017-10-24] MEDS: FLONASE NASAL SPRAY ENOSTRIL SCH (09:12)
[2017-10-24] MEDS: ALDACTONE TAB 25 MG PO SCH (09:12)
[2017-10-24] MEDS: LEVAQUIN PREMIX IV 500 MG 500 MG/100 ML BAG IV SCH (09:13)
[2017-10-24] MEDS: SINGULAIR TAB 10 MG PO SCH ×2 (09:13→20:32)
[2017-10-24] MEDS: ZANTAC PO SCH ×2 (09:13→20:31)
[2017-10-24] MEDS: LASIX PO SCH (09:13)
[2017-10-24] MEDS: BROVANA IN SCH ×2 (09:21→21:44)
[2017-10-24] MEDS: PULMICORT NEB TX 0.5 MG NEB SCH ×2 (09:21→21:44)
[2017-10-24] MEDS: K-DUR TAB 20 MEQ PO SCH (09:56)
[2017-10-24 10:32] LABS: ABG BASE EXCESS 13.6 mmol/L (-2.0-2.0)
[2017-10-24 10:34] LABS: ABG ALLEN TEST POS; ABG HCO3 40.5 mmol/L (22-26)
[2017-10-24] MEDS: XANAX PO PRN ×2 (11:33→20:32)
[2017-10-24] MEDS ORDERED: AMBIEN PO PRN (15:00)
[2017-10-24 15:44] LABS: CALCIUM 8.3 mg/dL (8.5-10.1); CARBON DIOXIDE 34.3 mmol/L (21-32); COR CA(FOR HYPOALB) 9.9 mg/dL (8.5-10.1); CREATININE 2.36 mg/dL (0.55-1.02); TOTAL PROTEIN 6.6 g/dL (6.4-8.2)
[2017-10-24] MEDS: MILK OF MAGNESIA PO PRN (20:30)
[2017-10-24] MEDS: COLACE CAP 100 MG PO PRN (20:31)
[2017-10-24] MEDS: REQUIP PO SCH (20:31)
[2017-10-24] MEDS: ELAVIL PO SCH (20:32)
[2017-10-24] MEDS: ZANAFLEX PO PRN (20:32)
[2017-10-25] MEDS: DUONEB 0.5 MG/3 MG NEB SCH ×7 (01:19→21:49)
[2017-10-25] MEDS: SOLU-Medrol 40 MG VIAL IVP SCH ×3 (02:19→16:36)
[2017-10-25] MEDS: ROBITUSSIN AC PO PRN ×2 (02:19→14:00)
[2017-10-25] MEDS: NEURONTIN CAP 300 MG PO SCH ×3 (05:37→21:14)
[2017-10-25 05:58] LABS: BASOPHILS % (AUTO) 0 % (0.2-1.0); HEMATOCRIT 26.7 % (36.0-47.0); HEMOGLOBIN 8.9 g/dL (12.0-16.0); LYMPHOCYTES # (AUTO) 0.3 X10^3/uL (1.3-2.9); LYMPHOCYTES % (AUTO) 2.5 % (21.0-51.0); MEAN CORPUSCULAR HEMOGLOBIN 32.1 pg (27.0-34.0); MEAN CORPUSCULAR HGB CONC 33.4 g/dL (33.0-35.0); MEAN CORPUSCULAR VOLUME 95.9 fL (80.0-100.0); MEAN PLATELET VOLUME 8.4 fL (7.4-11.0); MONOCYTES # (AUTO) 0.5 x10^3/uL (0.3-0.8); MONOCYTES % (AUTO) 4.4 % (0.0-13.0); NEUTROPHILS # (AUTO) 11.1 x10^3/uL (2.2-4.8); NEUTROPHILS % (AUTO) 93.1 % (42.0-75.0); PLATELET COUNT 177 X10^3/uL (150.0-450.0); RED BLOOD COUNT 2.78 X10^6/uL (3.5-5.4); RED CELL DISTRIBUTION WIDTH 16.1 % (11.6-16.5); WHITE BLOOD COUNT 11.9 X10^3/uL (3.6-10.0)
[2017-10-25 06:13] LABS: ALBUMIN 1.9 g/dL (3.4-5.0); CALCIUM 8.4 mg/dL (8.5-10.1); COR CA(FOR HYPOALB) 10.1 mg/dL (8.5-10.1); CREATININE 1.77 mg/dL (0.55-1.02); TOTAL PROTEIN 6.7 g/dL (6.4-8.2)
[2017-10-25 06:23] LABS: BAND NEUTROPHILS % 3 % (0-10); PLATELET MORPHOLOGY COMMENT NORMAL (NORMAL)
[2017-10-25] MEDS: ZANTAC PO SCH ×2 (09:00→20:02)
[2017-10-25] MEDS: CARDIZEM CD 240 MG PO SCH (09:01)
[2017-10-25] MEDS: ALDACTONE TAB 25 MG PO SCH (09:01)
[2017-10-25] MEDS: LASIX PO SCH (09:01)
[2017-10-25] MEDS: FLONASE NASAL SPRAY ENOSTRIL SCH (09:02)
[2017-10-25] MEDS: NS 1000 ML 1,000 ML IV SCH ×3 (09:02→21:14)
[2017-10-25] MEDS: K-DUR TAB 20 MEQ PO SCH (09:02)
[2017-10-25] MEDS: BROVANA IN SCH ×2 (09:31→21:49)
[2017-10-25] MEDS: PULMICORT NEB TX 0.5 MG NEB SCH ×2 (09:31→21:49)
[2017-10-25] MEDS: PERCOCET TAB 5/325 MG PO PRN (13:58)
[2017-10-25] MEDS: XANAX PO PRN ×2 (14:50→18:28)
[2017-10-25] MEDS: ELAVIL PO SCH (20:00)
[2017-10-25] MEDS: SINGULAIR TAB 10 MG PO SCH (20:01)
[2017-10-25] MEDS: REQUIP PO SCH (20:01)
[2017-10-25] MEDS: ZANAFLEX PO PRN (20:01)
[2017-10-25] MEDS: COLACE CAP 100 MG PO PRN (20:02)
[2017-10-26] MEDS: SOLU-Medrol 40 MG VIAL IVP SCH (00:53)
[2017-10-26] MEDS: DUONEB 0.5 MG/3 MG NEB SCH ×6 (01:01→20:55)
[2017-10-26] MEDS: XANAX PO PRN ×2 (01:24→14:28)
[2017-10-26] MEDS: ROBITUSSIN AC PO PRN (01:24)
[2017-10-26] MEDS: NEURONTIN CAP 300 MG PO SCH ×3 (05:31→21:08)
[2017-10-26] MEDS: PERCOCET TAB 5/325 MG PO PRN ×3 (05:32→21:15)
[2017-10-26 05:40] LABS: BASOPHILS % (AUTO) 0.1 % (0.2-1.0); HEMOGLOBIN 9.4 g/dL (12.0-16.0); LYMPHOCYTES # (AUTO) 0.3 X10^3/uL (1.3-2.9); LYMPHOCYTES % (AUTO) 2.4 % (21.0-51.0); MEAN CORPUSCULAR HEMOGLOBIN 32.5 pg (27.0-34.0); MEAN CORPUSCULAR HGB CONC 33.7 g/dL (33.0-35.0); MEAN CORPUSCULAR VOLUME 96.4 fL (80.0-100.0); MEAN PLATELET VOLUME 8.3 fL (7.4-11.0); MONOCYTES # (AUTO) 0.4 x10^3/uL (0.3-0.8); NEUTROPHILS # (AUTO) 10.1 x10^3/uL (2.2-4.8); NEUTROPHILS % (AUTO) 93.5 % (42.0-75.0); PLATELET COUNT 183 X10^3/uL (150.0-450.0); RED CELL DISTRIBUTION WIDTH 16.4 % (11.6-16.5); WHITE BLOOD COUNT 10.8 X10^3/uL (3.6-10.0)
[2017-10-26] MEDS: ZANAFLEX PO PRN ×2 (05:53→21:15)
[2017-10-26 06:01] LABS: CALCIUM 8.6 mg/dL (8.5-10.1); CARBON DIOXIDE 37.2 mmol/L (21-32); COR CA(FOR HYPOALB) 10.2 mg/dL (8.5-10.1); CREATININE 1.18 mg/dL (0.55-1.02); TOTAL PROTEIN 6.9 g/dL (6.4-8.2)
[2017-10-26 06:17] LABS: BAND NEUTROPHILS % 4 % (0-10); PLATELET MORPHOLOGY COMMENT NORMAL (NORMAL)
--- NOTE | 2017-10-26 06:51 | RAD ---
Chest, one view Indication: COPD, shortness of breath Comparison: 10/24/2017 Findings: The heart size is stable. There is a persistent but improving moderate sized left pleural e ffusion. There is improved aeration of the left upper lobe. Left retrocardiac opacities persist. Apar t from mild basilar atelectasis, the right lung is clear. Right-sided port catheter is unchanged in p osition without pneumothorax. Impression: Improving moderate sized left pleural effusion with persistent left retrocardiac opacities. Reported By:
[2017-10-26] MEDS: CARDIZEM CD 240 MG PO SCH (08:49)
[2017-10-26] MEDS: ZANTAC PO SCH ×2 (08:49→21:07)
[2017-10-26] MEDS: ALDACTONE TAB 25 MG PO SCH (08:50)
[2017-10-26] MEDS: K-DUR TAB 20 MEQ PO SCH (08:50)
[2017-10-26] MEDS: FLONASE NASAL SPRAY ENOSTRIL SCH (08:50)
[2017-10-26] MEDS ORDERED: PHARMACY CONSULT - VANCOMYCIN XX SCH (09:00)
[2017-10-26] MEDS: PULMICORT NEB TX 0.5 MG NEB SCH ×2 (09:05→20:55)
[2017-10-26] MEDS: BROVANA IN SCH ×2 (09:05→20:55)
[2017-10-26] MEDS: NS 1000 ML 1,000 ML IV SCH (10:54)
[2017-10-26] MEDS: LASIX IVP SCH ×2 (10:56→21:06)
[2017-10-26] MEDS: MORPHINE SULFATE INJ 2 MG INJ IVP PRN ×2 (11:33→15:25)
[2017-10-26] MEDS ORDERED: VANCOMYCIN 1 GM PREMIX (ADDVANTAGE) 250 ML IV NR (12:00)
[2017-10-26] MEDS: LEVAQUIN PREMIX IV 500 MG 500 MG/100 ML BAG IV SCH (14:27)
[2017-10-26] MEDS: PHENERGAN TAB 25 MG PO PRN (18:07)
[2017-10-26] MEDS ORDERED: MORPHINE SULFATE INJ 2 MG INJ IVP ONE (19:29)
[2017-10-26] MEDS ORDERED: VANCOMYCIN HCL 500 MG VIAL ONE (20:52)
[2017-10-26] MEDS ORDERED: NS 100 ML IV + SPIKE MINIBAG* 100 ML IV ONE (20:53)
[2017-10-26] MEDS: VANCOMYCIN HCL 500 MG VIAL 500 MG in D5W 100 ML IV 100 ML IV SCH ×2 (21:04→21:17)
[2017-10-26] MEDS: ELAVIL PO SCH (21:06)
[2017-10-26] MEDS: REQUIP PO SCH (21:07)
[2017-10-26] MEDS: SINGULAIR TAB 10 MG PO SCH (21:08)
[2017-10-27] MEDS: MORPHINE SULFATE INJ 2 MG INJ IVP PRN ×5 (00:35→21:32)
[2017-10-27] MEDS: PHENERGAN TAB 25 MG PO PRN (00:46)
[2017-10-27] MEDS: DUONEB 0.5 MG/3 MG NEB SCH ×6 (01:00→20:40)
[2017-10-27] MEDS: XANAX PO PRN ×3 (02:40→17:00)
[2017-10-27] MEDS: PERCOCET TAB 5/325 MG PO PRN ×3 (04:23→21:40)
[2017-10-27 05:27] LABS: BASOPHILS % (AUTO) 0.1 % (0.2-1.0); HEMATOCRIT 28.9 % (36.0-47.0); HEMOGLOBIN 9.7 g/dL (12.0-16.0); LYMPHOCYTES # (AUTO) 0.4 X10^3/uL (1.3-2.9); LYMPHOCYTES % (AUTO) 4.3 % (21.0-51.0); MEAN CORPUSCULAR HEMOGLOBIN 32.1 pg (27.0-34.0); MEAN CORPUSCULAR HGB CONC 33.7 g/dL (33.0-35.0); MEAN CORPUSCULAR VOLUME 95.3 fL (80.0-100.0); MEAN PLATELET VOLUME 8.4 fL (7.4-11.0); MONOCYTES # (AUTO) 0.7 x10^3/uL (0.3-0.8); MONOCYTES % (AUTO) 7.1 % (0.0-13.0); NEUTROPHILS # (AUTO) 8.7 x10^3/uL (2.2-4.8); NEUTROPHILS % (AUTO) 88.5 % (42.0-75.0); PLATELET COUNT 199 X10^3/uL (150.0-450.0); RED BLOOD COUNT 3.03 X10^6/uL (3.5-5.4); RED CELL DISTRIBUTION WIDTH 16.4 % (11.6-16.5); WHITE BLOOD COUNT 9.8 X10^3/uL (3.6-10.0)
[2017-10-27 05:32] LABS: ABG BASE EXCESS 15.6 mmol/L (-2.0-2.0)
[2017-10-27 05:34] LABS: ABG ALLEN TEST POS; ABG HCO3 42.4 mmol/L (22-26)
[2017-10-27 05:43] LABS: ALANINE AMINOTRANSFERASE 56 Units/L (12-78); ALBUMIN 2.3 g/dL (3.4-5.0); ALKALINE PHOSPHATASE 110 Units/L (46-116); ASPARTATE AMINO TRANSFERASE 20 Units/L (15-37); BLOOD UREA NITROGEN 38 mg/dL (7-18); CALCIUM 8.5 mg/dL (8.5-10.1); CARBON DIOXIDE 36.1 mmol/L (21-32); CHLORIDE 96 mmol/L (98-107); COR CA(FOR HYPOALB) 9.9 mg/dL (8.5-10.1); COR NA(FOR HYPERGLY) 140 mmol/L (136-145); CREATININE 1.11 mg/dL (0.55-1.02); SODIUM 138 mmol/L (136-145); TOTAL PROTEIN 7.1 g/dL (6.4-8.2); eGFR BLACK RACES > 60 (>60); eGFR NON BLACK RACES 53 (>60)
[2017-10-27] MEDS: NEURONTIN CAP 300 MG PO SCH ×3 (05:46→21:37)
--- NOTE | 2017-10-27 08:11 | RAD ---
Examination: Portable AP chest History: Respiratory failure, CHF and asthma Comparison 10/26/2017 Findings: The stable heart size. Grossly clear right lung. Persistent opacity left base consistent wi th combination of airspace disease and pleural fluid. No change in position of right subclavian injec tion port. Impression: No significant interval change. Reported By:
[2017-10-27] MEDS ORDERED: NS 100 ML IV + SPIKE MINIBAG* 100 ML IV ONE (08:35)
[2017-10-27] MEDS ORDERED: VANCOMYCIN HCL 500 MG VIAL ONE (08:35)
[2017-10-27] MEDS: VANCOMYCIN HCL 500 MG VIAL 500 MG in D5W 100 ML IV 100 ML IV SCH (08:43)
[2017-10-27] MEDS: ALDACTONE TAB 25 MG PO SCH (08:47)
[2017-10-27] MEDS: CARDIZEM CD 240 MG PO SCH (08:47)
[2017-10-27] MEDS: PULMICORT NEB TX 0.5 MG NEB SCH ×2 (08:48→20:40)
[2017-10-27] MEDS: K-DUR TAB 20 MEQ PO SCH (08:48)
[2017-10-27] MEDS: BROVANA IN SCH ×2 (08:48→20:40)
[2017-10-27] MEDS: FLONASE NASAL SPRAY ENOSTRIL SCH (08:48)
[2017-10-27] MEDS: ZANTAC PO SCH ×2 (09:02→21:37)
[2017-10-27] MEDS: NS 1000 ML 1,000 ML IV SCH ×2 (15:37→19:28)
--- NOTE | 2017-10-27 18:43 | CT ---
HISTORY: COPD exacerbation, left abdominal wall abscess formation Study: CT chest, abdomen, and pelvis without contrast Comparison: May 28, 2017 and March 07, 2017 Technique: Multiple axial images of the chest, abdomen, and pelvis were obtained from the thoracic in let to the pubic symphysis without the administration of IV contrast. AEC was utilized. Findings: Chest: The thyroid is unremarkable. There is no pericardial effusion observed. The thoracic aorta i s normal in its contour without evidence for aneurysmal dilatation. Coronary atherosclerosis is note d. There is a right-sided Port-A-Cath which terminates in the SVC. Evaluation of the lung parenchyma demonstrates a background of emphysema with interval development of bibasilar consolidation and a sm all volume left pleural effusion most consistent with multifocal pneumonia and a parapneumonic effusi on and for which clinical and radiographic follow-up to clearing are recommended. There is no pathol ogic hilar or mediastinal lymphadenopathy. There is no effusion or pneumothorax. No destructive oss eous lesions are seen. There is an old posterior 9th rib deformity on the left. Abdomen: The liver, spleen, pancreas, and adrenal glands are unremarkable. The patient is status pos t cholecystectomy. There are bilateral renal hypodensities most likely reflecting benign cysts but wh ich appear overall stable. No significant mesenteric or retroperitoneal lymphadenopathy or stranding can be observed. No free fluid or free air is seen within the abdomen. No bowel wall thickening or bowel dilatation is present. No destructive osseous lesions are seen. Patient has undergone previous lumbar decompression. Along the left lateral abdominal wall, there is diffuse skin thickening with u nderlying subcutaneous fat stranding and reticulation most compatible with cellulitis/panniculitis wi thout focal fluid collection to suggest abscess. Pelvis: There is no mass, free fluid, or lymphadenopathy. The bladder is decompressed with a Giron catheter. No destructive osseous lesions are seen. IMPRESSION: Bibasilar pneumonia with a small volume left parapneumonic effusion. Clinical correlation and radiogr aphic follow-up to clearing is recommended. Left lateral abdominal wall cellulitis/panniculitis without findings to suggest abscess. Reported By:
[2017-10-27 19:57] LABS: CREATININE 1.11 mg/dL (0.55-1.02); VANCOMYCIN,TROUGH 8.8 ug/mL (15-20)
[2017-10-27] MEDS ORDERED: PHARMACY COMMENT IV SCH (20:45)
[2017-10-27] MEDS: VANCOMYCIN HCL 500 MG VIAL 750 MG in D5W 250 ML IV 250 ML IV SCH (21:31)
[2017-10-27] MEDS: SINGULAIR TAB 10 MG PO SCH (21:37)
[2017-10-27] MEDS: REQUIP PO SCH (21:39)
[2017-10-27] MEDS: ELAVIL PO SCH (21:39)
[2017-10-27] MEDS: ZANAFLEX PO PRN (21:40)
[2017-10-27] MEDS: MILK OF MAGNESIA PO PRN (21:45)
[2017-10-27] MEDS: COLACE CAP 100 MG PO PRN (21:45)
[2017-10-28] MEDS: DUONEB 0.5 MG/3 MG NEB SCH ×7 (01:14→20:54)
[2017-10-28] MEDS: ROBITUSSIN AC PO PRN (01:59)
[2017-10-28] MEDS: MORPHINE SULFATE INJ 2 MG INJ IVP PRN ×5 (01:59→21:10)
[2017-10-28] MEDS: NEURONTIN CAP 300 MG PO SCH ×3 (05:32→21:18)
[2017-10-28 06:29] LABS: BASOPHILS % (AUTO) 0.1 % (0.2-1.0); EOSINOPHILS % (AUTO) 0.4 % (0.9-2.9); HEMATOCRIT 31.1 % (36.0-47.0); HEMOGLOBIN 10.4 g/dL (12.0-16.0); LYMPHOCYTES % (AUTO) 10.3 % (21.0-51.0); MEAN CORPUSCULAR HEMOGLOBIN 32.1 pg (27.0-34.0); MEAN CORPUSCULAR HGB CONC 33.4 g/dL (33.0-35.0); MEAN PLATELET VOLUME 7.9 fL (7.4-11.0); MONOCYTES # (AUTO) 0.6 x10^3/uL (0.3-0.8); MONOCYTES % (AUTO) 6.2 % (0.0-13.0); NEUTROPHILS # (AUTO) 7.8 x10^3/uL (2.2-4.8); PLATELET COUNT 226 X10^3/uL (150.0-450.0); RED BLOOD COUNT 3.24 X10^6/uL (3.5-5.4); RED CELL DISTRIBUTION WIDTH 16.9 % (11.6-16.5); WHITE BLOOD COUNT 9.4 X10^3/uL (3.6-10.0)
[2017-10-28 06:39] LABS: ALANINE AMINOTRANSFERASE 61 Units/L (12-78); ALBUMIN 2.1 g/dL (3.4-5.0); ALKALINE PHOSPHATASE 121 Units/L (46-116); ASPARTATE AMINO TRANSFERASE 27 Units/L (15-37); BLOOD UREA NITROGEN 26 mg/dL (7-18); CALCIUM 8.3 mg/dL (8.5-10.1); CHLORIDE 98 mmol/L (98-107); COR CA(FOR HYPOALB) 9.8 mg/dL (8.5-10.1); COR NA(FOR HYPERGLY) 139 mmol/L (136-145); CREATININE 1.03 mg/dL (0.55-1.02); SODIUM 137 mmol/L (136-145); TOTAL PROTEIN 6.5 g/dL (6.4-8.2); eGFR BLACK RACES > 60 (>60); eGFR NON BLACK RACES 57 (>60)
[2017-10-28 07:10] LABS: BAND NEUTROPHILS % 2 % (0-10); PLATELET MORPHOLOGY COMMENT NORMAL (NORMAL)
[2017-10-28] MEDS: NS 1000 ML 1,000 ML IV SCH ×4 (07:21→21:10)
--- NOTE | 2017-10-28 07:26 | RAD ---
History: Asthma, COPD, cervical cancer Study: Chest one view, comparison 10/26/2017 Findings: New AP chest labeled 659 hours shows the cardiac silhouette to remain enlarged. The pulmona ry vasculature is mildly congested. Persistent left basilar opacity is seen compatible with fluid and /or consolidation. Minimal linear opacity in the right base is seen likely representing atelectasis. Impression: 1. Persistent left basilar opacity likely representing consolidation and fluid. 2. Minimal right lower lobe atelectasis. 3. Mild vascular congestion. Reported By:
[2017-10-28] MEDS: PERCOCET TAB 5/325 MG PO PRN ×2 (07:51→20:54)
[2017-10-28] MEDS: XANAX PO PRN ×2 (07:51→20:55)
[2017-10-28] MEDS: K-DUR TAB 20 MEQ PO SCH (08:00)
[2017-10-28] MEDS: CARDIZEM CD 240 MG PO SCH (08:00)
[2017-10-28] MEDS: ALDACTONE TAB 25 MG PO SCH (08:00)
[2017-10-28] MEDS: ZANTAC PO SCH ×2 (08:00→20:53)
[2017-10-28] MEDS: VANCOMYCIN HCL 500 MG VIAL 750 MG in D5W 250 ML IV 250 ML IV SCH ×2 (08:00→20:54)
[2017-10-28] MEDS: FLONASE NASAL SPRAY ENOSTRIL SCH (08:10)
[2017-10-28] MEDS: PULMICORT NEB TX 0.5 MG NEB SCH ×2 (08:35→20:54)
[2017-10-28] MEDS: BROVANA IN SCH ×2 (08:42→20:54)
[2017-10-28] MEDS: ZANAFLEX PO PRN ×2 (13:28→20:55)
[2017-10-28] MEDS: PHENERGAN TAB 25 MG PO PRN (13:28)
[2017-10-28] MEDS: LEVAQUIN PREMIX IV 500 MG 500 MG/100 ML BAG IV SCH (14:00)
[2017-10-28] MEDS ORDERED: STERILE WATER IRRIGATION IR ONE (16:11)
[2017-10-28] MEDS: SINGULAIR TAB 10 MG PO SCH (20:53)
[2017-10-28] MEDS: ELAVIL PO SCH (20:53)
[2017-10-28] MEDS: REQUIP PO SCH (20:54)
[2017-10-28] MEDS: COLACE CAP 100 MG PO PRN (20:55)
[2017-10-29] MEDS: DUONEB 0.5 MG/3 MG NEB SCH ×4 (00:45→20:50)
[2017-10-29] MEDS: MORPHINE SULFATE INJ 2 MG INJ IVP PRN ×5 (02:05→20:45)
[2017-10-29] MEDS: ROBITUSSIN AC PO PRN ×2 (02:25→20:45)
[2017-10-29] MEDS: NS 1000 ML 1,000 ML IV SCH ×3 (03:40→20:45)
[2017-10-29] MEDS: NEURONTIN CAP 300 MG PO SCH ×3 (05:00→21:35)
[2017-10-29] MEDS: XANAX PO PRN ×2 (05:32→20:21)
[2017-10-29 06:17] LABS: BASOPHILS # (AUTO) 0.1 X10^3/uL (0.0-0.1); BASOPHILS % (AUTO) 0.7 % (0.2-1.0); EOSINOPHILS # (AUTO) 0.1 x10^3/uL (0.0-0.2); EOSINOPHILS % (AUTO) 0.5 % (0.9-2.9); HEMATOCRIT 34.3 % (36.0-47.0); HEMOGLOBIN 11.2 g/dL (12.0-16.0); LYMPHOCYTES # (AUTO) 1.7 X10^3/uL (1.3-2.9); LYMPHOCYTES % (AUTO) 10.2 % (21.0-51.0); MEAN CORPUSCULAR HEMOGLOBIN 31.1 pg (27.0-34.0); MEAN CORPUSCULAR HGB CONC 32.5 g/dL (33.0-35.0); MEAN CORPUSCULAR VOLUME 95.8 fL (80.0-100.0); MEAN PLATELET VOLUME 8.2 fL (7.4-11.0); MONOCYTES # (AUTO) 0.8 x10^3/uL (0.3-0.8); NEUTROPHILS # (AUTO) 13.9 x10^3/uL (2.2-4.8); NEUTROPHILS % (AUTO) 83.6 % (42.0-75.0); PLATELET COUNT 280 X10^3/uL (150.0-450.0); RED BLOOD COUNT 3.58 X10^6/uL (3.5-5.4); RED CELL DISTRIBUTION WIDTH 16.8 % (11.6-16.5); WHITE BLOOD COUNT 16.6 X10^3/uL (3.6-10.0)
[2017-10-29 06:55] LABS: BAND NEUTROPHILS % 10 % (0-10); PLATELET MORPHOLOGY COMMENT NORMAL (NORMAL)
[2017-10-29 06:56] LABS: ALANINE AMINOTRANSFERASE 106 Units/L (12-78); ALBUMIN 1.9 g/dL (3.4-5.0); ALKALINE PHOSPHATASE 148 Units/L (46-116); ASPARTATE AMINO TRANSFERASE 67 Units/L (15-37); BLOOD UREA NITROGEN 21 mg/dL (7-18); CALCIUM 7.9 mg/dL (8.5-10.1); CARBON DIOXIDE 30.7 mmol/L (21-32); CHLORIDE 97 mmol/L (98-107); COR CA(FOR HYPOALB) 9.6 mg/dL (8.5-10.1); COR NA(FOR HYPERGLY) 135 mmol/L (136-145); CREATININE 1.08 mg/dL (0.55-1.02); SODIUM 134 mmol/L (136-145); TOTAL PROTEIN 6.1 g/dL (6.4-8.2); eGFR BLACK RACES > 60 (>60); eGFR NON BLACK RACES 54 (>60)
--- NOTE | 2017-10-29 07:37 | RAD ---
Exam: Chest, frontal view History: Asthma. COPD. Comparison: Previous chest radiograph from 10/28/2017. Findings: Right chest wall port is again noted with the tip extending to the cavoatrial junction. Per sistent cardiomegaly is present. Mild vascular congestion is again noted as well. Opacity at the left base may represent a combination of airspace disease and pleural effusion. Mild atelectasis is seen at the right base. IMPRESSION: 1. Persistent cardiomegaly with mild vascular congestion. 2. Persistent left basilar opacity most likely representing consolidation and effusion. 3. Right basilar atelectasis, unchanged Reported By:
[2017-10-29] MEDS: COLACE CAP 100 MG PO PRN ×2 (07:50→20:20)
[2017-10-29] MEDS: FLONASE NASAL SPRAY ENOSTRIL SCH (07:50)
[2017-10-29] MEDS: ZANTAC PO SCH ×2 (07:50→20:20)
[2017-10-29] MEDS: PERCOCET TAB 5/325 MG PO PRN ×2 (07:50→16:02)
[2017-10-29] MEDS: ALDACTONE TAB 25 MG PO SCH (07:50)
[2017-10-29] MEDS: CARDIZEM CD 240 MG PO SCH (07:51)
[2017-10-29] MEDS: K-DUR TAB 20 MEQ PO SCH (07:51)
[2017-10-29 08:00] LABS: CREATININE 1.08 mg/dL (0.55-1.02); VANCOMYCIN,TROUGH 14.8 ug/mL (15-20)
[2017-10-29] MEDS: PULMICORT NEB TX 0.5 MG NEB SCH ×2 (08:20→20:50)
[2017-10-29] MEDS: BROVANA IN SCH ×2 (08:20→20:50)
[2017-10-29] MEDS ORDERED: PHARMACY COMMENT IV SCH (08:45)
[2017-10-29] MEDS: LASIX IVP SCH ×2 (09:28→20:20)
[2017-10-29] MEDS: VANCOMYCIN HCL 500 MG VIAL 750 MG in D5W 250 ML IV 250 ML IV SCH ×2 (10:20→20:20)
[2017-10-29] MEDS: ZANAFLEX PO PRN (16:28)
[2017-10-29] MEDS: PHENERGAN TAB 25 MG PO PRN (20:19)
[2017-10-29] MEDS: ELAVIL PO SCH (20:19)
[2017-10-29] MEDS: REQUIP PO SCH (20:20)
[2017-10-29] MEDS: SINGULAIR TAB 10 MG PO SCH (20:20)
[2017-10-30] MEDS: DUONEB 0.5 MG/3 MG NEB SCH ×7 (01:10→20:55)
[2017-10-30] MEDS: MORPHINE SULFATE INJ 2 MG INJ IVP PRN (03:14)
[2017-10-30] MEDS: NS 1000 ML 1,000 ML IV SCH ×2 (05:07→19:16)
[2017-10-30] MEDS: NEURONTIN CAP 300 MG PO SCH ×3 (05:21→21:20)
[2017-10-30] MEDS: PHENERGAN TAB 25 MG PO PRN (05:22)
[2017-10-30] MEDS: ZANAFLEX PO PRN (05:22)
[2017-10-30 06:18] LABS: BASOPHILS # (AUTO) 0.1 X10^3/uL (0.0-0.1); BASOPHILS % (AUTO) 0.3 % (0.2-1.0); EOSINOPHILS % (AUTO) 0.2 % (0.9-2.9); HEMATOCRIT 32.2 % (36.0-47.0); HEMOGLOBIN 10.7 g/dL (12.0-16.0); LYMPHOCYTES # (AUTO) 1.6 X10^3/uL (1.3-2.9); LYMPHOCYTES % (AUTO) 7.4 % (21.0-51.0); MEAN CORPUSCULAR HEMOGLOBIN 31.5 pg (27.0-34.0); MEAN CORPUSCULAR HGB CONC 33.3 g/dL (33.0-35.0); MEAN CORPUSCULAR VOLUME 94.6 fL (80.0-100.0); MEAN PLATELET VOLUME 7.8 fL (7.4-11.0); MONOCYTES # (AUTO) 0.9 x10^3/uL (0.3-0.8); MONOCYTES % (AUTO) 4.1 % (0.0-13.0); NEUTROPHILS # (AUTO) 19.3 x10^3/uL (2.2-4.8); PLATELET COUNT 308 X10^3/uL (150.0-450.0); RED CELL DISTRIBUTION WIDTH 16.6 % (11.6-16.5); WHITE BLOOD COUNT 21.9 X10^3/uL (3.6-10.0)
[2017-10-30 06:37] LABS: ALBUMIN 1.6 g/dL (3.4-5.0); CALCIUM 7.7 mg/dL (8.5-10.1); CARBON DIOXIDE 31.2 mmol/L (21-32); COR CA(FOR HYPOALB) 9.6 mg/dL (8.5-10.1); CREATININE 1.27 mg/dL (0.55-1.02); TOTAL PROTEIN 6.4 g/dL (6.4-8.2)
[2017-10-30 06:43] LABS: BAND NEUTROPHILS % 5 % (0-10)
[2017-10-30 06:44] LABS: PLATELET MORPHOLOGY COMMENT NORMAL (NORMAL)
--- NOTE | 2017-10-30 06:55 | RAD ---
HISTORY: Follow-up respiratory failure Study: Chest AP portable Comparison: 10/29/2017 Findings: There is a poor present on the right. Heart size difficult to assess due to obscuration of the left h eart border by a large left pleural effusion which is increased since the prior examination. Underlyi ng atelectasis or infiltrate is possible. The visualized left lung apex is clear. The right lung is c lear. The bony thorax is unremarkable. IMPRESSION: Increasing left pleural effusion obscuring the left heart border and the lung markings in the left lo wer lobe. Underlying atelectasis or infiltrate may well be present. Reported By:
[2017-10-30] MEDS: ALDACTONE TAB 25 MG PO SCH (08:22)
[2017-10-30] MEDS: CARDIZEM CD 240 MG PO SCH (08:22)
[2017-10-30 08:38] LABS: ABG BASE EXCESS 12.8 mmol/L (-2.0-2.0)
[2017-10-30] MEDS: VANCOMYCIN HCL 500 MG VIAL 750 MG in D5W 250 ML IV 250 ML IV SCH ×2 (08:39→20:11)
[2017-10-30] MEDS: LASIX IVP SCH (08:39)
[2017-10-30 08:40] LABS: ABG HCO3 37.5 mmol/L (22-26)
[2017-10-30] MEDS: PULMICORT NEB TX 0.5 MG NEB SCH ×2 (09:11→20:55)
[2017-10-30] MEDS: BROVANA IN SCH ×2 (09:11→20:55)
[2017-10-30] MEDS ORDERED: NS 500 ML IV 500 ML IV ONE (10:20)
[2017-10-30] MEDS: ZANTAC PO SCH ×3 (10:23→20:10)
[2017-10-30] MEDS: FLONASE NASAL SPRAY ENOSTRIL SCH (10:23)
[2017-10-30] MEDS: K-DUR TAB 20 MEQ PO SCH ×2 (10:23→11:33)
[2017-10-30] MEDS: LASIX PO SCH ×2 (11:30→20:10)
[2017-10-30] MEDS: PERCOCET TAB 5/325 MG PO PRN (11:32)
[2017-10-30] MEDS: XANAX PO PRN (11:37)
[2017-10-30] MEDS: ROBITUSSIN AC PO PRN (11:37)
[2017-10-30] MEDS ORDERED: NORCO 10/325 TAB PO PRN (12:00)
[2017-10-30] MEDS: LEVAQUIN PREMIX IV 500 MG 500 MG/100 ML BAG IV SCH (14:30)
[2017-10-30] MEDS: SINGULAIR TAB 10 MG PO SCH (20:10)
[2017-10-30] MEDS: REQUIP PO SCH (20:10)
[2017-10-31] MEDS: DUONEB 0.5 MG/3 MG NEB SCH ×7 (00:50→21:52)
[2017-10-31] MEDS: ZOFRAN INJ 4 MG VIAL IVP PRN ×2 (03:30→10:07)
[2017-10-31] MEDS: NEURONTIN CAP 300 MG PO SCH ×3 (05:52→21:32)
[2017-10-31 05:55] LABS: BASOPHILS % (AUTO) 0.2 % (0.2-1.0); EOSINOPHILS # (AUTO) 0.1 x10^3/uL (0.0-0.2); EOSINOPHILS % (AUTO) 0.5 % (0.9-2.9); HEMATOCRIT 27.3 % (36.0-47.0); HEMOGLOBIN 9.2 g/dL (12.0-16.0); LYMPHOCYTES # (AUTO) 1.2 X10^3/uL (1.3-2.9); LYMPHOCYTES % (AUTO) 6.3 % (21.0-51.0); MEAN CORPUSCULAR HEMOGLOBIN 31.8 pg (27.0-34.0); MEAN CORPUSCULAR HGB CONC 33.5 g/dL (33.0-35.0); MEAN CORPUSCULAR VOLUME 94.9 fL (80.0-100.0); MEAN PLATELET VOLUME 8.1 fL (7.4-11.0); MONOCYTES % (AUTO) 5.2 % (0.0-13.0); NEUTROPHILS # (AUTO) 16.6 x10^3/uL (2.2-4.8); NEUTROPHILS % (AUTO) 87.8 % (42.0-75.0); PLATELET COUNT 296 X10^3/uL (150.0-450.0); RED BLOOD COUNT 2.88 X10^6/uL (3.5-5.4); RED CELL DISTRIBUTION WIDTH 16.2 % (11.6-16.5)
[2017-10-31 06:10] LABS: ALANINE AMINOTRANSFERASE 67 Units/L (12-78); ALBUMIN 1.5 g/dL (3.4-5.0); ALKALINE PHOSPHATASE 136 Units/L (46-116); ASPARTATE AMINO TRANSFERASE 20 Units/L (15-37); BLOOD UREA NITROGEN 22 mg/dL (7-18); CALCIUM 7.7 mg/dL (8.5-10.1); CARBON DIOXIDE 33.5 mmol/L (21-32); CHLORIDE 96 mmol/L (98-107); COR CA(FOR HYPOALB) 9.7 mg/dL (8.5-10.1); CREATININE 1.16 mg/dL (0.55-1.02); SODIUM 136 mmol/L (136-145); TOTAL PROTEIN 6.4 g/dL (6.4-8.2); eGFR BLACK RACES > 60 (>60); eGFR NON BLACK RACES 50 (>60)
[2017-10-31] MEDS: BROVANA IN SCH ×2 (08:30→21:52)
[2017-10-31] MEDS: PULMICORT NEB TX 0.5 MG NEB SCH ×2 (08:30→21:52)
[2017-10-31] MEDS: ZANTAC PO SCH ×2 (08:33→21:32)
[2017-10-31] MEDS: CARDIZEM CD 240 MG PO SCH (08:33)
[2017-10-31] MEDS: LASIX PO SCH ×2 (08:33→21:33)
[2017-10-31] MEDS: K-DUR TAB 20 MEQ PO SCH (08:33)
[2017-10-31] MEDS: ALDACTONE TAB 25 MG PO SCH (08:33)
[2017-10-31 09:51] LABS: CREATININE 1.22 mg/dL (0.55-1.02); VANCOMYCIN,TROUGH 19.1 ug/mL (15-20)
[2017-10-31] MEDS: XANAX PO PRN ×2 (10:08→21:33)
[2017-10-31] MEDS: VANCOMYCIN HCL 500 MG VIAL 750 MG in D5W 250 ML IV 250 ML IV SCH ×2 (11:28→21:31)
[2017-10-31] MEDS: NS 1000 ML 1,000 ML IV SCH ×2 (11:33→18:10)
[2017-10-31] MEDS: FLONASE NASAL SPRAY ENOSTRIL SCH (11:33)
[2017-10-31] MEDS: PERCOCET TAB 5/325 MG PO PRN ×2 (12:56→17:55)
[2017-10-31] MEDS: ROBITUSSIN AC PO PRN (15:15)
[2017-10-31] MEDS: REQUIP PO SCH (21:33)
[2017-10-31] MEDS: SINGULAIR TAB 10 MG PO SCH (21:33)
[2017-10-31] MEDS: COLACE CAP 100 MG PO PRN (21:33)
[2017-11-01] MEDS: DUONEB 0.5 MG/3 MG NEB SCH ×6 (01:22→21:59)
[2017-11-01] MEDS: PERCOCET TAB 5/325 MG PO PRN ×3 (05:39→20:55)
[2017-11-01] MEDS: NEURONTIN CAP 300 MG PO SCH ×3 (05:40→21:07)
[2017-11-01 06:13] LABS: BASOPHILS % (AUTO) 0.1 % (0.2-1.0); EOSINOPHILS # (AUTO) 0.1 x10^3/uL (0.0-0.2); EOSINOPHILS % (AUTO) 0.7 % (0.9-2.9); HEMATOCRIT 25.7 % (36.0-47.0); HEMOGLOBIN 8.5 g/dL (12.0-16.0); LYMPHOCYTES # (AUTO) 1.2 X10^3/uL (1.3-2.9); LYMPHOCYTES % (AUTO) 8.1 % (21.0-51.0); MEAN CORPUSCULAR HEMOGLOBIN 31.3 pg (27.0-34.0); MEAN CORPUSCULAR VOLUME 94.8 fL (80.0-100.0); MONOCYTES # (AUTO) 0.9 x10^3/uL (0.3-0.8); MONOCYTES % (AUTO) 5.6 % (0.0-13.0); NEUTROPHILS # (AUTO) 13.1 x10^3/uL (2.2-4.8); NEUTROPHILS % (AUTO) 85.5 % (42.0-75.0); PLATELET COUNT 314 X10^3/uL (150.0-450.0); RED BLOOD COUNT 2.71 X10^6/uL (3.5-5.4); RED CELL DISTRIBUTION WIDTH 16.1 % (11.6-16.5); WHITE BLOOD COUNT 15.3 X10^3/uL (3.6-10.0)
[2017-11-01 06:30] LABS: ALANINE AMINOTRANSFERASE 50 Units/L (12-78); ALBUMIN 1.6 g/dL (3.4-5.0); ALKALINE PHOSPHATASE 131 Units/L (46-116); ASPARTATE AMINO TRANSFERASE 20 Units/L (15-37); BLOOD UREA NITROGEN 15 mg/dL (7-18); CALCIUM 7.8 mg/dL (8.5-10.1); CARBON DIOXIDE 35.1 mmol/L (21-32); CHLORIDE 95 mmol/L (98-107); COR CA(FOR HYPOALB) 9.7 mg/dL (8.5-10.1); CREATININE 1.05 mg/dL (0.55-1.02); SODIUM 136 mmol/L (136-145); TOTAL PROTEIN 6.8 g/dL (6.4-8.2); eGFR BLACK RACES > 60 (>60); eGFR NON BLACK RACES 56 (>60)
[2017-11-01] MEDS: NS 1000 ML 1,000 ML IV SCH ×3 (06:46→21:07)
[2017-11-01 07:08] LABS: BAND NEUTROPHILS % 3 % (0-10)
[2017-11-01 07:10] LABS: PLATELET MORPHOLOGY COMMENT NORMAL (NORMAL)
[2017-11-01] MEDS: CARDIZEM CD 240 MG PO SCH (08:22)
[2017-11-01] MEDS: K-DUR TAB 20 MEQ PO SCH (08:22)
[2017-11-01] MEDS: LASIX PO SCH ×2 (08:22→20:47)
[2017-11-01] MEDS: ZANTAC PO SCH ×2 (08:22→20:48)
[2017-11-01] MEDS: ALDACTONE TAB 25 MG PO SCH (08:22)
[2017-11-01] MEDS: VANCOMYCIN HCL 500 MG VIAL 750 MG in D5W 250 ML IV 250 ML IV SCH ×2 (08:23→20:57)
[2017-11-01] MEDS: FLONASE NASAL SPRAY ENOSTRIL SCH (08:23)
[2017-11-01 08:47] LABS: ABG BASE EXCESS 12.7 mmol/L (-2.0-2.0)
[2017-11-01 08:48] LABS: ABG ALLEN TEST POS; ABG HCO3 38.9 mmol/L (22-26)
[2017-11-01] MEDS: ZOFRAN INJ 4 MG VIAL IVP PRN ×2 (09:18→17:21)
[2017-11-01] MEDS: PULMICORT NEB TX 0.5 MG NEB SCH ×2 (09:21→21:59)
[2017-11-01] MEDS: BROVANA IN SCH ×2 (09:21→21:59)
[2017-11-01] MEDS: XANAX PO PRN (12:30)
[2017-11-01] MEDS: LEVAQUIN PREMIX IV 500 MG 500 MG/100 ML BAG IV SCH (15:30)
[2017-11-01] MEDS: ROBITUSSIN AC PO PRN (17:20)
[2017-11-01] MEDS: REQUIP PO SCH (20:47)
[2017-11-01] MEDS: SINGULAIR TAB 10 MG PO SCH (20:47)
[2017-11-01 20:49] LABS: CREATININE 1.37 mg/dL (0.55-1.02); VANCOMYCIN,TROUGH 17.8 ug/mL (15-20)
[2017-11-02] MEDS: DUONEB 0.5 MG/3 MG NEB SCH ×5 (01:19→20:54)
[2017-11-02] MEDS: NEURONTIN CAP 300 MG PO SCH ×3 (06:17→21:23)
[2017-11-02] MEDS: ALDACTONE TAB 25 MG PO SCH (09:05)
[2017-11-02] MEDS: CARDIZEM CD 240 MG PO SCH (09:05)
[2017-11-02] MEDS: ZANTAC PO SCH ×2 (09:05→21:23)
[2017-11-02] MEDS: K-DUR TAB 20 MEQ PO SCH (09:05)
[2017-11-02] MEDS: VANCOMYCIN HCL 500 MG VIAL 750 MG in D5W 250 ML IV 250 ML IV SCH ×2 (09:05→21:22)
[2017-11-02] MEDS: LASIX PO SCH ×2 (09:06→21:22)
[2017-11-02] MEDS: BROVANA IN SCH ×2 (09:12→20:54)
[2017-11-02] MEDS: PULMICORT NEB TX 0.5 MG NEB SCH ×2 (09:13→20:54)
[2017-11-02] MEDS: FLONASE NASAL SPRAY ENOSTRIL SCH (09:44)
[2017-11-02] MEDS: PERCOCET TAB 5/325 MG PO PRN (15:34)
[2017-11-02] MEDS: ROBITUSSIN AC PO PRN (15:48)
[2017-11-02] MEDS: NS 1000 ML 1,000 ML IV SCH ×2 (17:25→21:23)
[2017-11-02] MEDS ORDERED: MORPHINE SULFATE INJ 2 MG INJ IVP PRN ×2 (20:32→22:04)
[2017-11-02] MEDS: SINGULAIR TAB 10 MG PO SCH (21:22)
[2017-11-02] MEDS: REQUIP PO SCH (21:22)
[2017-11-02] MEDS: ZOFRAN INJ 4 MG VIAL IVP PRN (21:58)
[2017-11-02] MEDS ORDERED: MORPHINE SULFATE INJ 4 MG IVP PRN (22:09)
[2017-11-03] MEDS: NS 1000 ML 1,000 ML IV SCH ×3 (00:10→21:01)
[2017-11-03] MEDS: MORPHINE SULFATE INJ 10 MG IVP PRN ×6 (00:12→19:07)
[2017-11-03] MEDS: DUONEB 0.5 MG/3 MG NEB SCH ×6 (00:48→21:41)
[2017-11-03] MEDS: NEURONTIN CAP 300 MG PO SCH ×3 (05:35→21:01)
[2017-11-03 06:35] LABS: ALANINE AMINOTRANSFERASE 30 Units/L (12-78); ALBUMIN 1.6 g/dL (3.4-5.0); ALKALINE PHOSPHATASE 119 Units/L (46-116); ASPARTATE AMINO TRANSFERASE 17 Units/L (15-37); BLOOD UREA NITROGEN 8 mg/dL (7-18); CALCIUM 7.8 mg/dL (8.5-10.1); CHLORIDE 94 mmol/L (98-107); COR CA(FOR HYPOALB) 9.7 mg/dL (8.5-10.1); COR NA(FOR HYPERGLY) 137 mmol/L (136-145); CREATININE 1.07 mg/dL (0.55-1.02); SODIUM 137 mmol/L (136-145); TOTAL PROTEIN 6.9 g/dL (6.4-8.2); eGFR BLACK RACES > 60 (>60); eGFR NON BLACK RACES 55 (>60)
[2017-11-03 07:00] LABS: BASOPHILS # (AUTO) 0.1 X10^3/uL (0.0-0.1); BASOPHILS % (AUTO) 0.3 % (0.2-1.0); EOSINOPHILS # (AUTO) 0.1 x10^3/uL (0.0-0.2); EOSINOPHILS % (AUTO) 0.5 % (0.9-2.9); HEMATOCRIT 24.8 % (36.0-47.0); HEMOGLOBIN 8.2 g/dL (12.0-16.0); LYMPHOCYTES # (AUTO) 1.3 X10^3/uL (1.3-2.9); LYMPHOCYTES % (AUTO) 7.9 % (21.0-51.0); MEAN CORPUSCULAR HEMOGLOBIN 31.5 pg (27.0-34.0); MEAN CORPUSCULAR HGB CONC 32.8 g/dL (33.0-35.0); MEAN CORPUSCULAR VOLUME 95.9 fL (80.0-100.0); MEAN PLATELET VOLUME 7.9 fL (7.4-11.0); MONOCYTES # (AUTO) 1.5 x10^3/uL (0.3-0.8); MONOCYTES % (AUTO) 9.5 % (0.0-13.0); NEUTROPHILS # (AUTO) 12.9 x10^3/uL (2.2-4.8); NEUTROPHILS % (AUTO) 81.8 % (42.0-75.0); PLATELET COUNT 347 X10^3/uL (150.0-450.0); RED BLOOD COUNT 2.59 X10^6/uL (3.5-5.4); WHITE BLOOD COUNT 15.8 X10^3/uL (3.6-10.0)
[2017-11-03 08:13] LABS: CREATININE 1.16 mg/dL (0.55-1.02); VANCOMYCIN,TROUGH 15.2 ug/mL (15-20)
[2017-11-03] MEDS: BROVANA IN SCH ×2 (09:23→21:41)
[2017-11-03] MEDS: PULMICORT NEB TX 0.5 MG NEB SCH ×2 (09:23→21:41)
[2017-11-03] MEDS: ZANTAC PO SCH ×2 (09:26→20:47)
[2017-11-03] MEDS: CARDIZEM CD 240 MG PO SCH (09:26)
[2017-11-03] MEDS: LASIX PO SCH ×2 (09:26→20:49)
[2017-11-03] MEDS: ALDACTONE TAB 25 MG PO SCH (09:27)
[2017-11-03] MEDS: VANCOMYCIN HCL 500 MG VIAL 750 MG in D5W 250 ML IV 250 ML IV SCH ×2 (09:27→20:49)
[2017-11-03] MEDS ORDERED: POTASSIUM CHL 40 MEQ/NS 0.45% 500 ML IV PRN (09:41)
[2017-11-03] MEDS ORDERED: K-LYTE EFFERVESCENT PO PRN (09:41)
[2017-11-03] MEDS ORDERED: POTASSIUM CHLORIDE LIQ 20 MEQ UDC PO PRN (09:41)
[2017-11-03] MEDS ORDERED: POTASSIUM CHL 60 MEQ/NS 0.45% 500 ML IV PRN (09:41)
[2017-11-03] MEDS: K-DUR TAB 20 MEQ PO SCH (10:50)
[2017-11-03] MEDS: FLONASE NASAL SPRAY ENOSTRIL SCH (13:20)
[2017-11-03] MEDS: ROBITUSSIN AC PO PRN ×2 (13:43→20:47)
[2017-11-03] MEDS: LEVAQUIN PREMIX IV 500 MG 500 MG/100 ML BAG IV SCH (14:36)
[2017-11-03] MEDS ORDERED: BUTT CREAM (COMPOUND) ONE (15:48)
[2017-11-03] MEDS: SINGULAIR TAB 10 MG PO SCH (20:48)
[2017-11-03] MEDS: REQUIP PO SCH (20:48)
[2017-11-04] MEDS: DUONEB 0.5 MG/3 MG NEB SCH ×6 (01:06→22:18)
[2017-11-04] MEDS: NS 1000 ML 1,000 ML IV SCH ×3 (03:06→22:02)
[2017-11-04] MEDS: MORPHINE SULFATE INJ 10 MG IVP PRN ×5 (03:52→21:48)
[2017-11-04] MEDS: NEURONTIN CAP 300 MG PO SCH ×3 (05:18→21:46)
[2017-11-04 05:58] LABS: ALANINE AMINOTRANSFERASE 24 Units/L (12-78); ALBUMIN 1.5 g/dL (3.4-5.0); ALKALINE PHOSPHATASE 107 Units/L (46-116); ASPARTATE AMINO TRANSFERASE 22 Units/L (15-37); BLOOD UREA NITROGEN 8 mg/dL (7-18); CALCIUM 7.9 mg/dL (8.5-10.1); CARBON DIOXIDE 37.9 mmol/L (21-32); CHLORIDE 93 mmol/L (98-107); COR CA(FOR HYPOALB) 9.9 mg/dL (8.5-10.1); CREATININE 1.19 mg/dL (0.55-1.02); MAGNESIUM 1.3 mg/dL (1.7-2.9); SODIUM 135 mmol/L (136-145); TOTAL PROTEIN 6.8 g/dL (6.4-8.2); eGFR BLACK RACES 59 (>60); eGFR NON BLACK RACES 49 (>60)
[2017-11-04 06:03] LABS: BASOPHILS # (AUTO) 0.1 X10^3/uL (0.0-0.1); BASOPHILS % (AUTO) 0.5 % (0.2-1.0); EOSINOPHILS # (AUTO) 0.1 x10^3/uL (0.0-0.2); EOSINOPHILS % (AUTO) 0.6 % (0.9-2.9); HEMATOCRIT 21.7 % (36.0-47.0); HEMOGLOBIN 7.4 g/dL (12.0-16.0); LYMPHOCYTES # (AUTO) 1.1 X10^3/uL (1.3-2.9); LYMPHOCYTES % (AUTO) 8.9 % (21.0-51.0); MEAN CORPUSCULAR HEMOGLOBIN 32.2 pg (27.0-34.0); MEAN CORPUSCULAR VOLUME 94.6 fL (80.0-100.0); MEAN PLATELET VOLUME 7.7 fL (7.4-11.0); MONOCYTES % (AUTO) 8.3 % (0.0-13.0); NEUTROPHILS # (AUTO) 9.7 x10^3/uL (2.2-4.8); NEUTROPHILS % (AUTO) 81.7 % (42.0-75.0); PLATELET COUNT 295 X10^3/uL (150.0-450.0); RED BLOOD COUNT 2.29 X10^6/uL (3.5-5.4); WHITE BLOOD COUNT 11.8 X10^3/uL (3.6-10.0)
[2017-11-04] MEDS: MAGNESIUM SULFATE 1 GM/100 mL PREMIX 1 GM/100 ML BAG IV PRN ×4 (06:12→13:00)
[2017-11-04 06:47] LABS: HYPOCHROMASIA SLIGHT; PLATELET MORPHOLOGY COMMENT NORMAL (NORMAL)
[2017-11-04] MEDS: ZANTAC PO SCH ×2 (08:14→21:46)
[2017-11-04] MEDS: CARDIZEM CD 240 MG PO SCH (08:14)
[2017-11-04] MEDS: ALDACTONE TAB 25 MG PO SCH (08:14)
[2017-11-04] MEDS: FLONASE NASAL SPRAY ENOSTRIL SCH (08:15)
[2017-11-04] MEDS: VANCOMYCIN HCL 500 MG VIAL 750 MG in D5W 250 ML IV 250 ML IV SCH ×2 (08:15→21:45)
[2017-11-04] MEDS: LASIX PO SCH ×2 (08:15→21:47)
[2017-11-04] MEDS: BROVANA IN SCH ×2 (08:32→22:18)
[2017-11-04] MEDS: PULMICORT NEB TX 0.5 MG NEB SCH ×2 (08:32→22:18)
[2017-11-04] MEDS: K-DUR TAB 20 MEQ PO SCH (08:58)
--- NOTE | 2017-11-04 13:33 | PCM.PROG ---
Progress Note - Progress Note for Day of Date: 11/04/17 - Subjective Subjective: 62 WF ER ADMITTED ON 10/22WITH RESP DISTRESS. PT CONTINUES WITH LABORED RESP THIS AM, ON VENTI MASK, WITH O2 SAT IN UPPER 80'S. PT CONTINUES TO REFUSED HALFWAY PLACEMENT OR TRANSFER TO LTAC FACILITY. PT STATES "I DONT WANT TO SUFFER, IT JUST WANT TO BE COMFORTABLE" PT DID SIGN DNR OVER THE WEEKEND. REPEAT ABG AND CHEST XRAY THIS AM, SIGNIFICANT OTHER "FEEL LIKE SHELL BE FINE AT HOME" PLAN TO CONSULT [facility] FOR CARE UPON DISCHARGE - Past Medical Family Social History Past Med/Fam/Surg Hx: No changes since H&P Allergies: Allergies ketorolac [From Toradol] Allergy (Verified 09/01/17 22:40) nalbuphine [From Nubain] Allergy (Verified 08/17/17 23:19) Penicillins Allergy (Verified 08/17/17 23:19) Sulfa (Sulfonamide Antibiotics) [SULFA] Allergy (Verified 08/17/17 23:19) BETA BLOCKERS Allergy (Uncoded 08/17/17 23:19) - Review of Systems ROS: No change since H&P - Vital Signs and I&O's Vital Signs: Temperature 98.1 F Pulse Rate [Apical] 92 Pulse Rate 108 Respiratory Rate 26 Blood Pressure [Left Arm] 101/55 Blood Pressure [Right Arm] 152/76 Blood Pressure 119/67 O2 Sat by Pulse Oximetry 91 Intake and Output: Intake & Output 11/02/17 11/03/17 11/04/17 11/05/17 11:59 11:59 11:59 11:59 Intake Total 1841 2205 1922 Output Total 3600 2100 1800 Balance -1759 105 122 - Physical Exam Oriented: Person Eyes: Normal Ear: Normal Nose: Normal Throat: Dry Respiratory: Diminished, Wheezes Cardiovascular: Tachycardia, Edema : Normal Auscultation: Bowel Sounds: Normal Tenderness: Normal Skin: Decreased Turgur Musculoskeletal: Right, Left, Shoulder, Back:Thoracic, Back:Lumbar, Motor Deficit Psychiatric: Anxiety Affect: Anxious Speech Pattern: Clear - Laboratory and Diagnostics Result Diagrams: 11/04/17 05:13 11/04/17 05:13 Labs: 10/26/17 09:06 Blood Blood Culture - Final 10/27/17 15:30 Sputum - Expectorated Sputum Sputum Culture - Final 10/27/17 15:30 Sputum - Expectorated Sputum - Final 10/26/17 09:16 Blood Blood Culture - Final Staphylococcus Epidermidis 10/22/17 12:41 Blood Blood Culture - Final 10/22/17 12:31 Blood Blood Culture - Final Staphylococcus Hominis 10/22/17 12:10 Urine,Clean Catch Urine Culture - Final Laboratory WBC 11.8 X10^3/uL (3.6-10.0) H 11/04/17 05:13 RBC 2.29 X10^6/uL (3.5-5.4) L 11/04/17 05:13 Hgb 7.4 g/dL (12.0-16.0) L 11/04/17 05:13 Hct 21.7 % (36.0-47.0) L 11/04/17 05:13 MCV 94.6 fL (80.0-100.0) 11/04/17 05:13 MCH 32.2 pg (27.0-34.0) 11/04/17 05:13 MCHC 34.0 g/dL (33.0-35.0) 11/04/17 05:13 RDW 16.0 % (11.6-16.5) 11/04/17 05:13 Plt Count 295 X10^3/uL (150.0-450.0) 11/04/17 05:13 Plt Count Comment Adequate (ADEQUATE) 11/04/17 05:13 MPV 7.7 fL (7.4-11.0) 11/04/17 05:13 Neut % (Auto) 81.7 % (42.0-75.0) H 11/04/17 05:13 Lymph % (Auto) 8.9 % (21.0-51.0) L 11/04/17 05:13 [place] % (Auto) 8.3 % (0.0-13.0) 11/04/17 05:13 Eos % (Auto) 0.6 % (0.9-2.9) L 11/04/17 05:13 Baso % (Auto) 0.5 % (0.2-1.0) 11/04/17 05:13 Neut # (Auto) 9.7 x10^3/uL (2.2-4.8) H 11/04/17 05:13 Lymph # (Auto) 1.1 X10^3/uL (1.3-2.9) L 11/04/17 05:13 [place] # (Auto) 1.0 x10^3/uL (0.3-0.8) H 11/04/17 05:13 Eos # (Auto) 0.1 x10^3/uL (0.0-0.2) 11/04/17 05:13 Baso # (Auto) 0.1 X10^3/uL (0.0-0.1) 11/04/17 05:13 Absolute Nucleated RBC 0.0 /100WBC 11/04/17 05:13 Total Counted 100 11/01/17 05:30 Neutrophils % (Manual) 79 % (39-76) H 11/01/17 05:30 Band Neutrophils % 3 % (0-10) 11/01/17 05:30 Lymphocytes % (Manual) 11 % (13-43) L 11/01/17 05:30 Monocytes % (Manual) 3 % (4-9) L 11/01/17 05:30 Eosinophils % (Manual) 2 % (0-6) 11/01/17 05:30 Atypical Lymphocytes 2 11/01/17 05:30 Plt Morphology Comment Normal (NORMAL) 11/04/17 05:13 RBC Morphology Abnormal (NORMAL) A 11/04/17 05:13 Hypochromasia Slight A 11/04/17 05:13 INR Target Range - 10/22/17 12:11 INR 0.84 (0.8-1.3) 10/22/17 12:11 APTT 23.0 SECONDS (22.9-36.5) 10/22/17 12:11 PTT Comment - 10/22/17 12:11 D-Dimer 279 ng/mL (0-400) 10/22/17 11:39 Sample Site Lr 11/01/17 08:42 ABG pH 7.450 (7.35-7.45) 11/01/17 08:42 ABG pCO2 56.0 mmHg (35.0-45.0) H* 11/01/17 08:42 ABG pO2 52.0 mmHg (80.0-100.0) L 11/01/17 08:42 ABG HCO3 38.9 mmol/L (22-26) H* 11/01/17 08:42 ABG O2 Saturation 88.0 % (90-100) L 11/01/17 08:42 ABG Base Excess 12.7 mmol/L (-2.0-2.0) H 11/01/17 08:42 Sameer Test Pos 11/01/17 08:42 A-a Gradient 92.0 mmHg 11/01/17 08:42 FiO2 30.000 11/01/17 08:42 Blood Gas Comments Pt baltazar well. cdn 11/01/17 08:42 Sodium 135 mmol/L (136-145) L 11/04/17 05:13 Corrected Sodium TNP 11/04/17 05:13 Potassium 3.5 mmol/L (3.5-5.1) 11/04/17 05:13 Chloride 93 mmol/L (98-107) L 11/04/17 05:13 Carbon Dioxide 37.9 mmol/L (21-32) H 11/04/17 05:13 BUN 8 mg/dL (7-18) 11/04/17 05:13 Creatinine 1.19 mg/dL (0.55-1.02) H 11/04/17 05:13 Est GFR (MDRD) Af Amer 59 (>60) 11/04/17 05:13 Est GFR (MDRD) Non-Af 49 (>60) L 11/04/17 05:13 Glucose 94 mg/dL (65-99) 11/04/17 05:13 Lactic Acid 2.2 mmol/L (0.4-2.0) H 10/24/17 04:58 Calcium 7.9 mg/dL (8.5-10.1) L 11/04/17 05:13 Corrected Calcium 9.9 mg/dL (8.5-10.1) 11/04/17 05:13 Magnesium 1.3 mg/dL (1.7-2.9) L 11/04/17 05:13 Total Bilirubin 0.40 mg/dL (0.2-1.0) 11/04/17 05:13 AST 22 Units/L (15-37) 11/04/17 05:13 ALT 24 Units/L (12-78) 11/04/17 05:13 Alkaline Phosphatase 107 Units/L (46-116) 11/04/17 05:13 Ammonia < 10 umol/L (11-32) L 10/30/17 09:52 Creatine Kinase 16 Units/L (26-192) L 10/22/17 23:59 CK-MB (CK-2) < 1.0 ng/mL (0-4.0) 10/22/17 23:59 CK/CKMB % Calc 6.3 % (<4) 10/22/17 23:59 Troponin I < 0.02 ng/mL (0-1.5) 10/22/17 23:59 B-Natriuretic Peptide 82.1 pg/mL (0-79) H 10/22/17 11:39 Total Protein 6.8 g/dL (6.4-8.2) 11/04/17 05:13 Albumin 1.5 g/dL (3.4-5.0) L 11/04/17 05:13 Globulin 5.3 g/dL (2.5-4.5) H 11/04/17 05:13 Albumin/Globulin Ratio 0.3 Ratio (1.1-2.1) L 11/04/17 05:13 Specimen Type Clean catch urine 10/22/17 12:10 Urine Color Yellow (YELLOW) 10/22/17 12:10 Urine Appearance Clear (CLEAR) 10/22/17 12:10 Urine pH 7.0 (5.0 - 8.0) 10/22/17 12:10 Ur Specific [place] 1.010 (1.000-1.030) 10/22/17 12:10 Urine Protein Negative (NEGATIVE) 10/22/17 12:10 Urine Glucose (UA) Negative (NEGATIVE) 10/22/17 12:10 Urine Ketones Negative (NEGATIVE) 10/22/17 12:10 Urine Occult Blood Negative (NEGATIVE) 10/22/17 12:10 Urine Nitrite Negative (NEGATIVE) 10/22/17 12:10 Urine Bilirubin Negative (NEGATIVE) 10/22/17 12:10 Urine Urobilinogen Normal (NORMAL) 10/22/17 12:10 Ur Leukocyte Esterase Negative (NEGATIVE) 10/22/17 12:10 Urine RBC None seen /HPF (NONE SEEN) 10/22/17 12:10 Urine WBC None seen /HPF (NONE SEEN) 10/22/17 12:10 Ur Squamous Epith Cells Negative /HPF (NEGATIVE) 10/22/17 12:10 Ur Transition Epith Cell Cancelled 10/30/17 14:56 Ur Renal Epithelial Cell Cancelled 10/30/17 14:56 Calcium Oxalate Crystal Cancelled 10/30/17 14:56 Cystine Crystals Cancelled 10/30/17 14:56 Uric Acid Crystals Cancelled 10/30/17 14:56 Triple Phos Crystals Cancelled 10/30/17 14:56 Tyrosine Crystals Cancelled 10/30/17 14:56 Other Crystals Cancelled 10/30/17 14:56 Amorphous Sediment Cancelled 10/30/17 14:56 Urine Bacteria Negative /HPF (NEGATIVE) 10/22/17 12:10 Hyaline Casts Cancelled 10/30/17 14:56 Granular Casts Cancelled 10/30/17 14:56 Fine Granular Casts Cancelled 10/30/17 14:56 Coarse Granular Casts Cancelled 10/30/17 14:56 RBC Casts Cancelled 10/30/17 14:56 Other Casts Cancelled 10/30/17 14:56 Urine Mucus Cancelled 10/30/17 14:56 Urine Trichomonas Cancelled 10/30/17 14:56 Urine Yeast Cancelled 10/30/17 14:56 Urine Sperm Cancelled 10/30/17 14:56 Ur Culture Indicated? No/not indicated 10/22/17 12:10 Vancomycin Trough 15.2 ug/mL (15-20) 11/03/17 07:35 Urine Opiates Screen Negative (NEG=<300) 10/22/17 12:10 Urine Methadone Screen Negative (NEG=<300) 10/22/17 12:10 Ur Barbiturates Screen Negative (NEG=<200) 10/22/17 12:10 Ur Phencyclidine Scrn Negative (NEG=<25) 10/22/17 12:10 Ur Amphetamines Screen Negative (NEG=<1000) 10/22/17 12:10 U Benzodiazepines Scrn Positive (NEG=<200) A 10/22/17 12:10 Urine Cocaine Screen Negative (NEG=<300) 10/22/17 12:10 U Marijuana (THC) Screen Negative (NEG=<50) 10/22/17 12:10 - Plan (1) Respiratory distress Status: Inactive Plan: CARDIAC MONITORING, RESP THERAPY, BIPAP. ABG, SUPPLEMENTAL O2,. JET NEBS , I. REPEAT AM LABS, TODD FOR STRICT I & OS. PHYSICAL THERAPY, BP MONITORING , COMFORT MEASURES, CONSULT HOSPICE (2) COPD exacerbation Status: Acute (3) Mental status alteration Status: Inactive Qualifiers: Altered mental status type: stupor Qualified Code(s): R40.1 - Stupor Plan: due to hypoxia, resp distress (4) CHF (congestive heart failure) Status: Chronic (5) Essential hypertension Status: Chronic (6) DHARA (generalized anxiety disorder) Status: Chronic (7) GERD (gastroesophageal reflux disease) Status: Chronic
[2017-11-04 13:55] LABS: ABG BASE EXCESS 15.9 mmol/L (-2.0-2.0)
[2017-11-04 13:58] LABS: ABG ALLEN TEST POS
--- NOTE | 2017-11-04 14:36 | RAD ---
HISTORY: Shortness of breath. Study: AP portable chest Comparison: 10/30/2017 Findings: There is persistent atelectatic change/infiltrate in the left lung base as well as what most likely i s a small pleural effusion. Mild platelike atelectasis is noted in the right lung base. There appea rs to be slight shift of the mediastinum to the left. A right-sided Port-A-Cath is present and the t ip is at the cavoatrial junction. IMPRESSION: 1. Persistent left lower lobe atelectatic change/infiltrate showing no significant change from 10/30. There also appears to be a small pleural effusion. This could be due to pneumonia, atelectat ic change or even metastatic disease Reported By:
[2017-11-04] MEDS: REQUIP PO SCH (21:47)
[2017-11-04] MEDS: SINGULAIR TAB 10 MG PO SCH (21:47)
[2017-11-05] MEDS: DUONEB 0.5 MG/3 MG NEB SCH ×6 (00:50→20:57)
[2017-11-05] MEDS: NEURONTIN CAP 300 MG PO SCH ×3 (05:30→21:35)
[2017-11-05] MEDS: COLACE CAP 100 MG PO PRN ×2 (05:39→21:34)
[2017-11-05] MEDS: MILK OF MAGNESIA PO PRN ×2 (05:40→21:34)
[2017-11-05] MEDS: NS 1000 ML 1,000 ML IV SCH ×2 (05:43→16:26)
[2017-11-05 06:27] LABS: BASOPHILS # (AUTO) 0.1 X10^3/uL (0.0-0.1); BASOPHILS % (AUTO) 0.8 % (0.2-1.0); EOSINOPHILS # (AUTO) 0.1 x10^3/uL (0.0-0.2); EOSINOPHILS % (AUTO) 0.7 % (0.9-2.9); HEMATOCRIT 22.4 % (36.0-47.0); HEMOGLOBIN 7.6 g/dL (12.0-16.0); LYMPHOCYTES # (AUTO) 1.2 X10^3/uL (1.3-2.9); LYMPHOCYTES % (AUTO) 14.3 % (21.0-51.0); MEAN CORPUSCULAR HEMOGLOBIN 32.1 pg (27.0-34.0); MEAN CORPUSCULAR HGB CONC 34.1 g/dL (33.0-35.0); MEAN CORPUSCULAR VOLUME 94.2 fL (80.0-100.0); MEAN PLATELET VOLUME 7.7 fL (7.4-11.0); MONOCYTES # (AUTO) 0.7 x10^3/uL (0.3-0.8); MONOCYTES % (AUTO) 7.8 % (0.0-13.0); NEUTROPHILS # (AUTO) 6.5 x10^3/uL (2.2-4.8); NEUTROPHILS % (AUTO) 76.4 % (42.0-75.0); PLATELET COUNT 334 X10^3/uL (150.0-450.0); RED BLOOD COUNT 2.37 X10^6/uL (3.5-5.4); RED CELL DISTRIBUTION WIDTH 15.5 % (11.6-16.5); WHITE BLOOD COUNT 8.5 X10^3/uL (3.6-10.0)
[2017-11-05] MEDS: MORPHINE SULFATE INJ 10 MG IVP PRN ×5 (06:39→21:38)
[2017-11-05 07:03] LABS: ALANINE AMINOTRANSFERASE 23 Units/L (12-78); ALBUMIN 1.5 g/dL (3.4-5.0); ALKALINE PHOSPHATASE 109 Units/L (46-116); ASPARTATE AMINO TRANSFERASE 22 Units/L (15-37); BLOOD UREA NITROGEN 8 mg/dL (7-18); CARBON DIOXIDE 33.5 mmol/L (21-32); CHLORIDE 94 mmol/L (98-107); CREATININE 1.39 mg/dL (0.55-1.02); MAGNESIUM 2.1 mg/dL (1.7-2.9); SODIUM 135 mmol/L (136-145); TOTAL PROTEIN 6.9 g/dL (6.4-8.2); eGFR BLACK RACES 49 (>60); eGFR NON BLACK RACES 41 (>60)
[2017-11-05 07:08] LABS: BAND NEUTROPHILS % 4 % (0-10); PLATELET MORPHOLOGY COMMENT NORMAL (NORMAL)
[2017-11-05] MEDS: LASIX PO SCH ×2 (08:04→21:35)
[2017-11-05] MEDS: CARDIZEM CD 240 MG PO SCH (08:04)
[2017-11-05] MEDS: ALDACTONE TAB 25 MG PO SCH (08:04)
[2017-11-05] MEDS: FLONASE NASAL SPRAY ENOSTRIL SCH (08:05)
[2017-11-05] MEDS: ZANTAC PO SCH ×2 (08:05→21:34)
[2017-11-05 09:05] LABS: CREATININE 1.41 mg/dL (0.55-1.02)
[2017-11-05 09:10] LABS: VANCOMYCIN,TROUGH 25.5 ug/mL (15-20)
[2017-11-05] MEDS: BROVANA IN SCH ×2 (09:12→20:57)
[2017-11-05] MEDS: PULMICORT NEB TX 0.5 MG NEB SCH ×2 (09:12→20:58)
[2017-11-05] MEDS: K-DUR TAB 20 MEQ PO SCH ×2 (10:42→10:43)
[2017-11-05 15:17] LABS: ABG BASE EXCESS 14.2 mmol/L (-2.0-2.0)
[2017-11-05] MEDS: LEVAQUIN PREMIX IV 500 MG 500 MG/100 ML BAG IV SCH (15:17)
[2017-11-05 15:18] LABS: ABG ALLEN TEST POS; ABG HCO3 40.5 mmol/L (22-26)
[2017-11-05] MEDS: K-RIDER 10 MEQ/NS 100 ML 10 MEQ/100 ML BAG IV PRN ×2 (15:20→16:24)
[2017-11-05] MEDS: REQUIP PO SCH (21:34)
[2017-11-05] MEDS: SINGULAIR TAB 10 MG PO SCH (21:35)
[2017-11-05] MEDS: ZOFRAN INJ 4 MG VIAL IVP PRN (23:29)
[2017-11-06] MEDS: DUONEB 0.5 MG/3 MG NEB SCH ×4 (01:17→13:51)
[2017-11-06] MEDS: MORPHINE SULFATE INJ 10 MG IVP PRN ×3 (05:23→11:33)
[2017-11-06] MEDS: NEURONTIN CAP 300 MG PO SCH ×2 (05:23→14:00)
[2017-11-06] MEDS: ALDACTONE TAB 25 MG PO SCH (09:29)
[2017-11-06] MEDS: LASIX PO SCH (09:29)
[2017-11-06] MEDS: FLONASE NASAL SPRAY ENOSTRIL SCH (09:29)
[2017-11-06] MEDS: K-DUR TAB 20 MEQ PO SCH (09:29)
[2017-11-06] MEDS: CARDIZEM CD 240 MG PO SCH (09:29)
[2017-11-06] MEDS: ZANTAC PO SCH (09:30)
[2017-11-06] MEDS: BROVANA IN SCH (09:36)
[2017-11-06] MEDS: PULMICORT NEB TX 0.5 MG NEB SCH (09:36)
[2017-11-06] MEDS: ZOFRAN INJ 4 MG VIAL IVP PRN (10:24)
[2017-11-06] MEDS ORDERED: PHENERGAN INJ 25 MG IV PRN ×2 (12:44→14:28)
[2017-11-06 13:20] VITALS: BP 107/53
[2017-11-06] MEDS ORDERED: K-LYTE EFFERVESCENT PO PRN (14:28)
[2017-11-06] MEDS ORDERED: POTASSIUM CHLORIDE LIQ 20 MEQ UDC PO PRN (14:28)
[2017-11-06] MEDS ORDERED: ZOFRAN INJ 4 MG VIAL IVP PRN (14:28)
[2017-11-06] MEDS ORDERED: MILK OF MAGNESIA PO PRN (14:28)
[2017-11-06] MEDS ORDERED: ROBITUSSIN AC PO PRN (14:28)
[2017-11-06] MEDS ORDERED: COLACE CAP 100 MG PO PRN (14:28)
[2017-11-06] MEDS ORDERED: MORPHINE SULFATE INJ 10 MG IVP PRN (14:28)
[2017-11-06] MEDS ORDERED: DUONEB 0.5 MG/3 MG NEB SCH (17:00)
[2017-11-06] MEDS ORDERED: PULMICORT NEB TX 0.5 MG NEB SCH (21:00)
[2017-11-06] MEDS ORDERED: LASIX PO SCH (21:00)
[2017-11-06] MEDS ORDERED: ZANTAC PO SCH (21:00)
[2017-11-06] MEDS ORDERED: SINGULAIR TAB 10 MG PO SCH (21:00)
[2017-11-06] MEDS ORDERED: REQUIP PO SCH (21:00)
[2017-11-06] MEDS ORDERED: BROVANA IN SCH (21:00)
[2017-11-06] MEDS ORDERED: NEURONTIN CAP 300 MG PO SCH (22:00)
[2017-11-07] MEDS ORDERED: K-DUR TAB 20 MEQ PO SCH (09:00)
[2017-11-07] MEDS ORDERED: CARDIZEM CD 240 MG PO SCH (09:00)
[2017-11-07] MEDS ORDERED: ALDACTONE TAB 25 MG PO SCH (09:00)
[2017-11-07] MEDS ORDERED: FLONASE NASAL SPRAY ENOSTRIL SCH (09:00)
--- NOTE | 2017-11-07 18:18 | PCM.PROG ---
Progress Note - Progress Note for Day of Date: 11/05/17 - Subjective Subjective: 62 WF ER ADMITTED ON 10/22WITH RESP DISTRESS. PT CONTINUES WITH LABORED RESP THIS AM, ON VENTI MASK, WITH O2 SAT IN UPPER 80'S. PT CONTINUES TO REFUSED RESIDENTIAL PLACEMENT OR TRANSFER TO LTAC FACILITY. PT STATES "I DONT WANT TO SUFFER, IT JUST WANT TO BE COMFORTABLE" PT DID SIGN DNR OVER THE WEEKEND. PT AGAIN TODAY STATES SHE DID NOT WANT TO BE PLACED ON LIFE SUPPORT AND AGREED WITH HOSPICE CARE. 3 NURSES AND SIGNIFICANT OTHER, RICH, WITNESSED PT'S REQUEST. [facility] CONTACTED FOR GIP HOSPICE AND END OF CARE COMFORT MEASURES. - Past Medical Family Social History Past Med/Fam/Surg Hx: No changes since H&P Allergies: Allergies ketorolac [From Toradol] Allergy (Verified 09/01/17 22:40) nalbuphine [From Nubain] Allergy (Verified 08/17/17 23:19) Penicillins Allergy (Verified 08/17/17 23:19) Sulfa (Sulfonamide Antibiotics) [SULFA] Allergy (Verified 08/17/17 23:19) BETA BLOCKERS Allergy (Uncoded 08/17/17 23:19) - Review of Systems ROS: No change since H&P - Vital Signs and I&O's Vital Signs: Temperature 97.6 F Pulse Rate [Apical] 96 Pulse Rate 86 Respiratory Rate 22 Blood Pressure [Left Arm] 107/53 Blood Pressure [Right Arm] 152/76 Blood Pressure 119/67 O2 Sat by Pulse Oximetry 90 Intake and Output: Intake & Output 11/05/17 11/06/17 11/07/17 11/08/17 11:59 11:59 11:59 11:59 Intake Total 2498 1768 Output Total 1250 1400 Balance 1248 368 - Physical Exam Oriented: Person Eyes: Normal Ear: Normal Nose: Normal Throat: Dry Respiratory: Diminished Cardiovascular: Tachycardia, Edema : Normal Auscultation: Bowel Sounds: Decreased Palpation: Other (DISTENDED) Skin: Decreased [place], Other (UPPER AND LOWER EXTREMITY 3RD SPACE EDEMA AND WEEPING TO RUE) Musculoskeletal: Right, Left, Shoulder, Back:Thoracic, Back:Lumbar, Motor Deficit Psychiatric: Anxiety Affect: Anxious Speech Pattern: Clear - Laboratory and Diagnostics Result Diagrams: 11/05/17 05:00 11/05/17 08:25 Labs: 10/26/17 09:06 Blood Blood Culture - Final 10/27/17 15:30 Sputum - Expectorated Sputum Sputum Culture - Final 10/27/17 15:30 Sputum - Expectorated Sputum - Final 10/26/17 09:16 Blood Blood Culture - Final Staphylococcus Epidermidis 10/22/17 12:41 Blood Blood Culture - Final 10/22/17 12:31 Blood Blood Culture - Final Staphylococcus Hominis 10/22/17 12:10 Urine,Clean Catch Urine Culture - Final Laboratory WBC 8.5 X10^3/uL (3.6-10.0) 11/05/17 05:00 RBC 2.37 X10^6/uL (3.5-5.4) L 11/05/17 05:00 Hgb 7.6 g/dL (12.0-16.0) L 11/05/17 05:00 Hct 22.4 % (36.0-47.0) L 11/05/17 05:00 MCV 94.2 fL (80.0-100.0) 11/05/17 05:00 MCH 32.1 pg (27.0-34.0) 11/05/17 05:00 MCHC 34.1 g/dL (33.0-35.0) 11/05/17 05:00 RDW 15.5 % (11.6-16.5) 11/05/17 05:00 Plt Count 334 X10^3/uL (150.0-450.0) 11/05/17 05:00 Plt Count Comment Adequate (ADEQUATE) 11/05/17 05:00 MPV 7.7 fL (7.4-11.0) 11/05/17 05:00 Neut % (Auto) 76.4 % (42.0-75.0) H 11/05/17 05:00 Lymph % (Auto) 14.3 % (21.0-51.0) L 11/05/17 05:00 [place] % (Auto) 7.8 % (0.0-13.0) 11/05/17 05:00 Eos % (Auto) 0.7 % (0.9-2.9) L 11/05/17 05:00 Baso % (Auto) 0.8 % (0.2-1.0) 11/05/17 05:00 Neut # (Auto) 6.5 x10^3/uL (2.2-4.8) H 11/05/17 05:00 Lymph # (Auto) 1.2 X10^3/uL (1.3-2.9) L 11/05/17 05:00 [place] # (Auto) 0.7 x10^3/uL (0.3-0.8) 11/05/17 05:00 Eos # (Auto) 0.1 x10^3/uL (0.0-0.2) 11/05/17 05:00 Baso # (Auto) 0.1 X10^3/uL (0.0-0.1) 11/05/17 05:00 Absolute Nucleated RBC 0.0 /100WBC 11/05/17 05:00 Total Counted 100 11/05/17 05:00 Neutrophils % (Manual) 68 % (39-76) 11/05/17 05:00 Band Neutrophils % 4 % (0-10) 11/05/17 05:00 Lymphocytes % (Manual) 24 % (13-43) 11/05/17 05:00 Monocytes % (Manual) 2 % (4-9) L 11/05/17 05:00 Eosinophils % (Manual) 2 % (0-6) 11/01/17 05:30 Atypical Lymphocytes 2 11/01/17 05:30 Plt Morphology Comment Normal (NORMAL) 11/05/17 05:00 RBC Morphology Normal (NORMAL) 11/05/17 05:00 Hypochromasia Slight A 11/04/17 05:13 INR Target Range - 10/22/17 12:11 INR 0.84 (0.8-1.3) 10/22/17 12:11 APTT 23.0 SECONDS (22.9-36.5) 10/22/17 12:11 PTT Comment - 10/22/17 12:11 D-Dimer 279 ng/mL (0-400) 10/22/17 11:39 Sample Site Rra 11/05/17 15:10 ABG pH 7.460 (7.35-7.45) H 11/05/17 15:10 ABG pCO2 57.0 mmHg (35.0-45.0) H* 11/05/17 15:10 ABG pO2 66.0 mmHg (80.0-100.0) L 11/05/17 15:10 ABG HCO3 40.5 mmol/L (22-26) H* 11/05/17 15:10 ABG O2 Saturation 94.0 % (90-100) 11/05/17 15:10 ABG Base Excess 14.2 mmol/L (-2.0-2.0) H 11/05/17 15:10 Sameer Test Pos 11/05/17 15:10 A-a Gradient 219.0 mmHg 11/05/17 15:10 FiO2 50.000 11/05/17 15:10 Blood Gas Comments Ferm[place] well cs 11/05/17 15:10 Sodium 135 mmol/L (136-145) L 11/05/17 06:05 Corrected Sodium TNP 11/05/17 06:05 Potassium 3.4 mmol/L (3.5-5.1) L 11/05/17 06:05 Chloride 94 mmol/L (98-107) L 11/05/17 06:05 Carbon Dioxide 33.5 mmol/L (21-32) H 11/05/17 06:05 BUN 8 mg/dL (7-18) 11/05/17 06:05 Creatinine 1.41 mg/dL (0.55-1.02) H 11/05/17 08:25 Est GFR (MDRD) Af Amer 49 (>60) L 11/05/17 06:05 Est GFR (MDRD) Non-Af 41 (>60) L 11/05/17 06:05 Glucose 99 mg/dL (65-99) 11/05/17 06:05 Lactic Acid 2.2 mmol/L (0.4-2.0) H 10/24/17 04:58 Calcium 8.0 mg/dL (8.5-10.1) L 11/05/17 06:05 Corrected Calcium 10.0 mg/dL (8.5-10.1) 11/05/17 06:05 Magnesium 2.1 mg/dL (1.7-2.9) 11/05/17 06:05 Total Bilirubin 0.30 mg/dL (0.2-1.0) 11/05/17 06:05 AST 22 Units/L (15-37) 11/05/17 06:05 ALT 23 Units/L (12-78) 11/05/17 06:05 Alkaline Phosphatase 109 Units/L (46-116) 11/05/17 06:05 Ammonia < 10 umol/L (11-32) L 10/30/17 09:52 Creatine Kinase 16 Units/L (26-192) L 10/22/17 23:59 CK-MB (CK-2) < 1.0 ng/mL (0-4.0) 10/22/17 23:59 CK/CKMB % Calc 6.3 % (<4) 10/22/17 23:59 Troponin I < 0.02 ng/mL (0-1.5) 10/22/17 23:59 B-Natriuretic Peptide 82.1 pg/mL (0-79) H 10/22/17 11:39 Total Protein 6.9 g/dL (6.4-8.2) 11/05/17 06:05 Albumin 1.5 g/dL (3.4-5.0) L 11/05/17 06:05 Globulin 5.4 g/dL (2.5-4.5) H 11/05/17 06:05 Albumin/Globulin Ratio 0.3 Ratio (1.1-2.1) L 11/05/17 06:05 Specimen Type Clean catch urine 10/22/17 12:10 Urine Color Yellow (YELLOW) 10/22/17 12:10 Urine Appearance Clear (CLEAR) 10/22/17 12:10 Urine pH 7.0 (5.0 - 8.0) 10/22/17 12:10 Ur Specific [place] 1.010 (1.000-1.030) 10/22/17 12:10 Urine Protein Negative (NEGATIVE) 10/22/17 12:10 Urine Glucose (UA) Negative (NEGATIVE) 10/22/17 12:10 Urine Ketones Negative (NEGATIVE) 10/22/17 12:10 Urine Occult Blood Negative (NEGATIVE) 10/22/17 12:10 Urine Nitrite Negative (NEGATIVE) 10/22/17 12:10 Urine Bilirubin Negative (NEGATIVE) 10/22/17 12:10 Urine Urobilinogen Normal (NORMAL) 10/22/17 12:10 Ur Leukocyte Esterase Negative (NEGATIVE) 10/22/17 12:10 Urine RBC None seen /HPF (NONE SEEN) 10/22/17 12:10 Urine WBC None seen /HPF (NONE SEEN) 10/22/17 12:10 Ur Squamous Epith Cells Negative /HPF (NEGATIVE) 10/22/17 12:10 Ur Transition Epith Cell Cancelled 10/30/17 14:56 Ur Renal Epithelial Cell Cancelled 10/30/17 14:56 Calcium Oxalate Crystal Cancelled 10/30/17 14:56 Cystine Crystals Cancelled 10/30/17 14:56 Uric Acid Crystals Cancelled 10/30/17 14:56 Triple Phos Crystals Cancelled 10/30/17 14:56 Tyrosine Crystals Cancelled 10/30/17 14:56 Other Crystals Cancelled 10/30/17 14:56 Amorphous Sediment Cancelled 10/30/17 14:56 Urine Bacteria Negative /HPF (NEGATIVE) 10/22/17 12:10 Hyaline Casts Cancelled 10/30/17 14:56 Granular Casts Cancelled 10/30/17 14:56 Fine Granular Casts Cancelled 10/30/17 14:56 Coarse Granular Casts Cancelled 10/30/17 14:56 RBC Casts Cancelled 10/30/17 14:56 Other Casts Cancelled 10/30/17 14:56 Urine Mucus Cancelled 10/30/17 14:56 Urine Trichomonas Cancelled 10/30/17 14:56 Urine Yeast Cancelled 10/30/17 14:56 Urine Sperm Cancelled 10/30/17 14:56 Ur Culture Indicated? No/not indicated 10/22/17 12:10 Vancomycin Trough 25.5 ug/mL (15-20) H* 11/05/17 08:25 Urine Opiates Screen Negative (NEG=<300) 10/22/17 12:10 Urine Methadone Screen Negative (NEG=<300) 10/22/17 12:10 Ur Barbiturates Screen Negative (NEG=<200) 10/22/17 12:10 Ur Phencyclidine Scrn Negative (NEG=<25) 10/22/17 12:10 Ur Amphetamines Screen Negative (NEG=<1000) 10/22/17 12:10 U Benzodiazepines Scrn Positive (NEG=<200) A 10/22/17 12:10 Urine Cocaine Screen Negative (NEG=<300) 10/22/17 12:10 U Marijuana (THC) Screen Negative (NEG=<50) 10/22/17 12:10 - Plan (1) Respiratory distress Status: Inactive Plan: BP MONITORING, COMFORT MEASURES, CONSULT HOSPICE. RESP CARE (2) COPD exacerbation Status: Acute (3) Mental status alteration Status: Inactive Qualifiers: Altered mental status type: stupor Qualified Code(s): R40.1 - Stupor Plan: due to hypoxia, resp distress (4) CHF (congestive heart failure) Status: Chronic (5) Essential hypertension Status: Chronic (6) DHARA (generalized anxiety disorder) Status: Chronic (7) GERD (gastroesophageal reflux disease) Status: Chronic
== END 2017-11-06 14:30 | disposition hospice, inpatient (51) | DRG 194 ==
LOC: ER 11:33 → ICU 13:02 → OBSVTOIN 13:02
PROVIDERS: ADMIT Internal Medicine; ATTEND Internal Medicine
DX: J18.8 Other pneumonia, unspecified organism (principal); R06.03 Acute respiratory distress; J44.1 Chronic obstructive pulmonary disease with (acute) exacerbation; B95.7 Other staphylococcus as the cause of diseases classified elsewhere; R07.89 Other chest pain; R53.1 Weakness; I25.10 Atherosclerotic heart disease of native coronary artery without angina pectoris; I10 Essential (primary) hypertension; R40.1 Stupor; I50.9 Heart failure, unspecified; F41.8 Other specified anxiety disorders; K21.9 Gastro-esophageal reflux disease without esophagitis; E87.5 Hyperkalemia; N28.89 Other specified disorders of kidney and ureter; M54.5 Low back pain; M19.90 Unspecified osteoarthritis, unspecified site; R06.02 Shortness of breath; R26.89 Other abnormalities of gait and mobility; Z66 Do not resuscitate
CPT/HCPCS: 36415; 36591; 36600; 51702; 71045; 71250; 74150; 80053; 80202; 80307; 81001; 82140; 82550; 82553; 82565; 82803; 83605; 83735; 83880; 84484; 84520; 85025; 85378; 85610; 85730; 87040; 87070; 87077; 87086; 87186; 87205; 93005; 93010; 94640; 94660; 96365; 96374; 96375; 99284; A4216; A4217; A4222; A4618; A7030; Q0169; G0434; J1940; J1956; J2270; J2405; J2550; J2920; J3370; J3480; J7620; J7626

== ENCOUNTER 2017-11-06 14:30 | Inpatient (IN) | payer OTHER ==
[2017-11-06] MEDS ORDERED: PHENERGAN INJ 25 MG IV PRN (15:35)
[2017-11-06] MEDS ORDERED: LEVSIN ORAL DROPS PO PRN (15:42)
[2017-11-06 16:19] VITALS: BMI 46.0
[2017-11-06] MEDS: REQUIP PO SCH ×2 (18:27→22:01)
[2017-11-06] MEDS: LASIX PO SCH ×2 (18:27→18:29)
[2017-11-06] MEDS: MORPHINE SULFATE INJ 10 MG IVP PRN (18:28)
[2017-11-06] MEDS: ATIVAN INJ 2 MG VIAL IVP PRN (21:30)
[2017-11-07] MEDS: MORPHINE SULFATE INJ 10 MG IVP PRN ×2 (02:00→09:01)
[2017-11-07] MEDS: ATIVAN INJ 2 MG VIAL IVP PRN (07:50)
[2017-11-07 08:10] VITALS: BP 106/71
[2017-11-07] MEDS: LASIX PO SCH (10:06)
[2017-11-07] MEDS ORDERED: LASIX IVP SCH (11:00)
--- NOTE | 2017-11-07 18:15 | DR.UPDATE ---
H&P Update History and Physical Update: History and Physical reviewed and patient examined. H&P ON 11/07 Yes with the followin [facility] END STAGE RESP FAILURE ADMITTED FOR [facility] FOR END OF LIFE CARE AND COMFORT MEASURES
== END 2017-11-07 14:58 | disposition short-term general hospital (02) | DRG 189 ==
LOC: ICU 14:30
PROVIDERS: ADMIT Internal Medicine; ATTEND Internal Medicine
DX: J96.90 Respiratory failure, unspecified, unspecified whether with hypoxia or hypercapnia (principal); J44.1 Chronic obstructive pulmonary disease with (acute) exacerbation; Z51.5 Encounter for palliative care; R40.1 Stupor; I50.9 Heart failure, unspecified; I10 Essential (primary) hypertension; F41.8 Other specified anxiety disorders; K21.9 Gastro-esophageal reflux disease without esophagitis
CPT/HCPCS: J1940; J2060; J2270; J2550

== ENCOUNTER 2017-11-07 15:00 | Inpatient (IN) | payer OTHER, MEDICAID ==
[2017-11-07 15:27] LABS: BASOPHILS # (AUTO) 0.1 X10^3/uL (0.0-0.1); BASOPHILS % (AUTO) 1.1 % (0.2-1.0); EOSINOPHILS # (AUTO) 0.1 x10^3/uL (0.0-0.2); EOSINOPHILS % (AUTO) 0.5 % (0.9-2.9); HEMATOCRIT 26.1 % (36.0-47.0); HEMOGLOBIN 8.7 g/dL (12.0-16.0); LYMPHOCYTES # (AUTO) 1.7 X10^3/uL (1.3-2.9); LYMPHOCYTES % (AUTO) 15.4 % (21.0-51.0); MEAN CORPUSCULAR HEMOGLOBIN 31.2 pg (27.0-34.0); MEAN CORPUSCULAR HGB CONC 33.3 g/dL (33.0-35.0); MEAN CORPUSCULAR VOLUME 93.6 fL (80.0-100.0); MEAN PLATELET VOLUME 7.2 fL (7.4-11.0); MONOCYTES # (AUTO) 0.9 x10^3/uL (0.3-0.8); MONOCYTES % (AUTO) 7.9 % (0.0-13.0); NEUTROPHILS # (AUTO) 8.2 x10^3/uL (2.2-4.8); NEUTROPHILS % (AUTO) 75.1 % (42.0-75.0); PLATELET COUNT 367 X10^3/uL (150.0-450.0); RED BLOOD COUNT 2.79 X10^6/uL (3.5-5.4); WHITE BLOOD COUNT 10.9 X10^3/uL (3.6-10.0)
[2017-11-07 15:41] LABS: ALANINE AMINOTRANSFERASE 17 Units/L (12-78); ALBUMIN 1.7 g/dL (3.4-5.0); ALKALINE PHOSPHATASE 136 Units/L (46-116); ASPARTATE AMINO TRANSFERASE 20 Units/L (15-37); BLOOD UREA NITROGEN 10 mg/dL (7-18); CALCIUM 8.5 mg/dL (8.5-10.1); CARBON DIOXIDE 36.6 mmol/L (21-32); CHLORIDE 94 mmol/L (98-107); COR CA(FOR HYPOALB) 10.3 mg/dL (8.5-10.1); CREATININE 1.57 mg/dL (0.55-1.02); SODIUM 135 mmol/L (136-145); TOTAL PROTEIN 7.5 g/dL (6.4-8.2); eGFR BLACK RACES 43 (>60); eGFR NON BLACK RACES 35 (>60)
[2017-11-07 15:47] LABS: BAND NEUTROPHILS % 3 % (0-10); PLATELET MORPHOLOGY COMMENT NORMAL (NORMAL)
[2017-11-07 15:59] VITALS: BMI 46.0
[2017-11-07 16:04] LABS: ABG BASE EXCESS 19.8 mmol/L (-2.0-2.0)
[2017-11-07 16:06] LABS: ABG ALLEN TEST POS; ABG HCO3 45.7 mmol/L (22-26)
[2017-11-07] MEDS: MILK OF MAGNESIA PO SCH ×2 (16:12→23:08)
[2017-11-07] MEDS: COLACE CAP 100 MG PO SCH ×2 (16:12→23:08)
[2017-11-07 17:42] LABS: ABG BASE EXCESS 20.4 mmol/L (-2.0-2.0)
[2017-11-07 17:43] LABS: ABG ALLEN TEST POS; ABG HCO3 47.2 mmol/L (22-26)
[2017-11-07] MEDS ORDERED: PERCOCET TAB 5/325 MG PO PRN (18:55)
[2017-11-08 01:05] LABS: ABG BASE EXCESS 19.9 mmol/L (-2.0-2.0)
[2017-11-08 01:07] LABS: ABG ALLEN TEST POS; ABG HCO3 46.9 mmol/L (22-26)
[2017-11-08] MEDS ORDERED: ZOFRAN INJ 4 MG VIAL IVP PRN (08:03)
[2017-11-08] MEDS ORDERED: PERCOCET TAB 5/325 MG PO PRN (08:54)
[2017-11-08] MEDS ORDERED: PULMICORT NEB TX 0.5 MG NEB SCH ×2 (09:00→21:00)
[2017-11-08] MEDS: BROVANA IN SCH ×2 (09:07→09:43)
[2017-11-08] MEDS ORDERED: XOPENEX 1.25 MG/3 ML NEBULE NEB ONE (09:25)
--- NOTE | 2017-11-08 09:28 | RAD ---
HISTORY: Shortness of breath Study: Chest AP portable Comparison: 11/04/2017 Findings: The patient is rotated to the left. There is a port present on the right. Heart size difficult to ass ess due to obscuration of the left heart border by abnormal density in the left lower sanchez thorax whi ch could be on the basis of PE fusion, atelectasis, consolidation, or combination. The right lung and left upper lung [place] are free of acute alveolar infiltrates but demonstrate some interstitial lung changes to be present. There is peribronchial thickening consistent with bronchitis which could be a cute, chronic, or both. The bony thorax is unremarkable. IMPRESSION: No change persistent increased density left lower sanchez thorax which could be on the basis of pleural effusion, atelectasis, consolidation or a combination Peribronchial thickening consistent with bronchitis which could be acute, chronic, or both. Reported By:
[2017-11-08] MEDS ORDERED: XOPENEX 1.25 MG/3 ML NEBULE NEB PRN (09:29)
[2017-11-08] MEDS ORDERED: NS 500 ML IV 500 ML IV ONE ×2 (10:00→10:16)
[2017-11-08] MEDS: ROCEPHIN VIAL 1 GM 1 GM in NS 100 ML IV + SPIKE MINIBAG* 100 ML IV SCH ×2 (10:00→13:59)
[2017-11-08] MEDS ORDERED: XANAX PO PRN (10:52)
[2017-11-08] MEDS ORDERED: TESSALON PERLES PO PRN (10:57)
[2017-11-08] MEDS ORDERED: ELAVIL PO SCH (11:00)
[2017-11-08] MEDS ORDERED: ROBITUSSIN AC PO PRN (11:00)
[2017-11-08] MEDS ORDERED: ZANAFLEX PO PRN (11:14)
[2017-11-08] MEDS ORDERED: AMBIEN PO PRN (11:16)
[2017-11-08] MEDS ORDERED: SINGULAIR TAB 10 MG PO SCH (12:00)
[2017-11-08] MEDS ORDERED: XOPENEX 1.25 MG/3 ML NEBULE NEB SCH ×2 (12:00→13:00)
[2017-11-08] MEDS ORDERED: REQUIP PO SCH (12:00)
[2017-11-08] MEDS ORDERED: CARDIZEM CD 240 MG PO SCH (12:00)
[2017-11-08] MEDS ORDERED: LASIX PO SCH (12:00)
[2017-11-08] MEDS ORDERED: Atrovent NEB TX 0.02% NEB SCH (12:00)
[2017-11-08] MEDS ORDERED: SOLU-Medrol 40 MG VIAL IVP SCH (14:00)
--- NOTE | 2017-11-08 14:56 | DR.H&P ---
H&P - History & Physical for Day of: H&P Date: 11/07/17 - Chief Complaint Chief Complaint: RESP DISTRESS, SOB - Allergies Allergies/Adverse Reactions: Allergies Allergy/AdvReac Type Severity Reaction Status Date / Time ketorolac [From Toradol] Allergy Verified 09/01/17 22:40 nalbuphine [From Nubain] Allergy Verified 08/17/17 23:19 Penicillins Allergy Verified 08/17/17 23:19 Sulfa (Sulfonamide Allergy Verified 08/17/17 23:19 Antibiotics) [SULFA] BETA BLOCKERS Allergy Uncoded 08/17/17 23:19 - History of Present Illness History of Present Illness: PT 62 WF WHO HAS IN [facility] UNDER CARE OF [facility] FOR END STAGE RESP FAILURE AND REVOKED HOSPICE, PT STATED SHE WANTED TO BE FULL CODE WITH VENT PLACEMENT AND TRANSFER TO TERTIARY CARE NEEDED. PT HAS BEEN ON BIPAP SINCE ADMISSION UNABLE TO TAPER DOWN FOR STABILITY TO D/C FOR MOVE TO FLOOR STATUS. PT HAS PMH OF COPD, RESP FAILURE, CHF, HTN, CAD, OA,GERD. PT READMIT FOR AGGRESSIVE MANAGEMENT OF ACUTE ON CHRONIC RESP ILLNESS - Past Medical History Past Medical History: Anxiety, Arthritis, Asthma, CHF, COPD, Coronary Artery Disease, GERD, Hypertension - Past Surgical History Surgical History: Abdominal Surgery, Appendectomy, Bowel Resection, Cholecystectomy - Family History Family Medical History: Diabetes Mellitus, Hypertension - Social History Does patient currently use any type of tobacco product: No Type of Tobacco Use: None Alcohol Use: None Drug Use: None - Review of Systems Constitutional: Weakness, Malaise Eyes: No Symptoms Reported ENT: Throat Pain Respiratory: Pleuritic Pain, Wheezing Cardiovascular: Palpitations Genitourinary: No Symptoms Reported Musculoskeletal: Shoulder Pain, Back Pain, Leg Pain, Neck Pain Skin: Other (WEEPING) Neurological: Weakness, Confusion (SIGNIFICANT OTHER STATES "SHE BEEN TALKING CRAZY, TALKING OUT OF HER HEAD") - Physical Exam Vital Signs: Temperature 98.7 F Pulse Rate [Apical] 121 Pulse Rate 121 Respiratory Rate 27 Blood Pressure [Left Arm] 129/60 Blood Pressure [Right Arm] 152/76 Blood Pressure 106/71 O2 Sat by Pulse Oximetry 98 Eyes: Normal Nose: Normal Throat: Dry Respiratory: Diminished Throughout Cardiovascular: Edema Auscultation: Bowel Sounds: Decreased Palpation: Other (DISTENTION) Skin: Other (3RD SPCACE EDEMA TO BILATERAL UPPER AND LOWER EXTREMITIES LOWER ABD AND DIFFUSE TO BACK WITH WEEPING TO RIGHT SIDE ABD AND RUE) Psychiatric: Anxiety Affect: Anxious Speech Pattern: Appropriate, Delayed (DUE TO RESP DISTRESS, PT ON BIPAP) - Assessment/Plan (1) SOB (shortness of breath) Status: Acute Plan: ADMIT, ICU, CARDIAC MONITORING, CONTINUE BIPAP AND RESP CARE. SERIAL ABG' S, CXR. I & OS, HOLD IV SEDATIVE MEDICATION, CONTINUE HOME MEDS. SKIN CARE, TURN Q 2HRS. ADMISSION LABS (2) Respiratory distress Status: Acute (3) CHF (congestive heart failure) Status: Chronic (4) COPD (chronic obstructive pulmonary disease) Qualifiers: COPD type: unspecified COPD Qualified Code(s): J44.9 - Chronic obstructive pulmonary disease, unspecified Status: Chronic (5) Degenerative joint disease (DJD) of hip Qualifiers: Osteoarthritis type: unspecified Laterality: right Qualified Code(s): M16.11 - Unilateral primary osteoarthritis, right hip Status: Chronic (6) Essential hypertension Status: Chronic (7) DHARA (generalized anxiety disorder) Status: Chronic (8) GERD (gastroesophageal reflux disease) Status: Chronic
[2017-11-08 15:37] VITALS: BP 112/54
[2017-11-08] MEDS ORDERED: NEURONTIN CAP 300 MG PO SCH (21:00)
[2017-11-09] MEDS ORDERED: ZyrTEC TAB 10 MG PO SCH (09:00)
[2017-11-09] MEDS ORDERED: ALDACTONE TAB 25 MG PO SCH (09:00)
[2017-11-09] MEDS ORDERED: FLONASE NASAL SPRAY ENOSTRIL SCH (09:00)
== END 2017-11-08 14:30 | disposition short-term general hospital (02) | DRG 189 ==
LOC: ICU 15:00
PROVIDERS: ADMIT Internal Medicine; ATTEND Internal Medicine
DX: J96.20 Acute and chronic respiratory failure, unspecified whether with hypoxia or hypercapnia (principal); R06.02 Shortness of breath; J44.9 Chronic obstructive pulmonary disease, unspecified; I50.9 Heart failure, unspecified; I10 Essential (primary) hypertension; I25.10 Atherosclerotic heart disease of native coronary artery without angina pectoris; K21.9 Gastro-esophageal reflux disease without esophagitis; M16.11 Unilateral primary osteoarthritis, right hip
CPT/HCPCS: 36415; 36600; 71045; 80053; 82803; 85025; 93005; 93010; 94660; A4222; J0696; J2405; J2920; J7626; J7644

== ENCOUNTER 2018-01-19 03:05 | Inpatient (IN) ==
[2018-01-19] MEDS ORDERED: ASPIRIN PO ONE (03:31)
[2018-01-19] MEDS ORDERED: LEVSIN/MAALOX/LIDOC VISC PO ONE (03:32)
[2018-01-19] MEDS ORDERED: SOLU-Medrol 125 MG VIAL IVP ONE (03:33)
[2018-01-19] MEDS ORDERED: XOPENEX 1.25 MG/3 ML NEBULE NEB ONE ×2 (03:34→03:39)
--- NOTE | 2018-01-19 03:36 | DR.CP ---
HPI - Time Seen Time seen: 03:31 - Complaint Chief Complaint Doctor Comments: Patient is complaining of xiphoid chest pain with SOB and problems wheezing. States she was awaken with chest pain about an hour ago. She denies cold, cough, fever or chills. States she has been having sharp chest pain worst when she breath or take a deep breath. She denies dysuria,hematuia, jeff or diarrhea. States she has been having epigastric pain. She denies tobacco or alcohol usage. States she stopped smoking months ago. - Reviewed Nurses Notes Review: Yes - Source History Provided: Patient, EMS - Mode of Arrival Mode of Arrival: EMS - Timing Came on: On Awakening Pain: Present Now - Duration Duration: Constant How lon Duration: Hours - Location Location of Chest Pain: Chest Chest Pain Radiation Location: None - Context Onset: While Asleep Cardiac Risk Factors: HTN PE Risk Factors: None History of: Similar pain in the past Prehospital Care: Oxygen - Quality Quality: Sharp - Severity Severity: Moderate - Modifying Factors Worsens: Breathing Impoves: Nothing - Associated Signs and Symptoms Associated Signs and Symptoms: Shortness of Breath, Abdominal Pain, Nausea/ Vomiting PMH - PMH Past Medical History: Anxiety, Arthritis, Asthma, CHF, COPD, Coronary Artery Disease, GERD, Hypertension Past Surgical History: Yes Surgical History: Abdominal Surgery, Appendectomy, Bowel Resection, Cholecystectomy - Family History Family Medical History: Diabetes Mellitus, Hypertension - Social History Do you use any recreational Drugs:: No ROS - Review of Systems Constitutional: No Symptoms Reported Eyes: No Symptoms Reported. negative: See HPI, Eye Pain, Blurred Vision, Tearing, Discharge, Photophobia, Diplopia, Other ENTM: No Symptoms Reported Respiratoy: No Symptoms Reported, Short of Breath, Wheezing Cardiovascular: No Symptoms Reported, Chest Pain. negative: See HPI, Edema, Palpitations, Syncope, Cyanosis, Skin Mottling, Other Gastrointestinal/Abdominal: No Symptoms Reported, Abdominal Pain, Nausea Genitourinary: No Symptoms Reported. negative: See HPI, Discharge, Dysuria, Frequency, Hematuria, Pain, Bleeding, Other Neurological: No Symptoms Reported Musculoskeletal: No Symptoms Reported Integumentary: No Symptoms Reported Hematologic/Lymphatic: No Symptoms Reported. negative: See HPI, Anemia, Blood Clots, Easy Bleeding, Easy Bruising, Swollen Glands, Lymphadenopathy, Other Endocrine: No Symptoms Reported Psychiatric: No Symptoms Reported PE - General Limitations: No Limitations General Appearance: Alert, In Distress (slight), Obese - Head Head Exam: Normal Inspection, Atraumatic, Normocephalic - Eyes Eye exam: Normal Appearance, PERRL, EOMI. negative: Scleral Icterus, Conjunctival Injection, Nystagmus, Miosis, Mydrasis, Periorbital Swelling, Periorbital Tenderness, Other - ENT ENT Exam: Normal Exam, Normal Oropharynx, Normal External Ear Exam, Mucous Membranes Moist, TM's Normal Bilaterally - Chest Chest Inspection: Normal Inspection, Symmetric Chest Wall Rise - Respiratory Respiratory Exam: Normal Lung Sounds Bilat Respiratory Exam: Bilateral Wheezing, Bilateral Decreased Breath Sounds - Cardiovascular Cardiovascular Exam: Regular Rate, Normal Rhythm, Tachycardia, Systolic Murmur Pulse: Normal Edema: Normal - Abdominal Exam Abdominal Exam: Normal Inspection, Normal Bowel Sounds, Tenderness (epigastric tenderness) Abdominal Tenderness: Epigastrium, Moderate - Extremities Extremities Exam: Normal Inspection, Full ROM, Normal Capillary Refill - Back Back Exam: Normal Inspection, Full ROM - Neurologic Neurological Exam: Alert, Oriented X3, CN II-XII Intact, Reflexes Normal. negative: Normal Gait (gait not tested) - Psychiatric Psychiatric Exam: Normal Affect, Normal Mood - Skin Skin Exam: Warm, Dry, Intact, Normal Color - Vitals Vitals: Temperature 99.3 F Pulse Rate [Right] 118 Pulse Rate 130 Respiratory Rate 24 Blood Pressure [Left Arm] 89/60 Blood Pressure [Right Arm] 152/76 Blood Pressure 107/52 O2 Sat by Pulse Oximetry 97 Course - Consultation Called: 05:20 Call Returned: 05:20 (Dr. Jennings to admit) - Education/Counseling Education/Counseling: Patient, Family Educated On: Treatment, Diagnosis ROR - Labs Reviewed Laboratory Results Reviewed?: Yes (All labs and x-ray results reviewed and discussed with patient) Result Diagrams: 01/19/18 03:44 01/19/18 03:44 - XRAY XRAY Interpreted by: Radiologist (CXR: No acute cardiopulmonary disease in patient with COPD) - EKG Rate: 116 [place]: Normal Rhythm: ST Block: None Hypertrophy: None ST: Lat, Ischemia - Labs Reviewed Laboratory: WBC 15.6 X10^3/uL (3.6-10.0) H 01/19/18 03:44 RBC 3.33 X10^6/uL (3.5-5.4) L 01/19/18 03:44 Hgb 9.3 g/dL (12.0-16.0) L 01/19/18 03:44 Hct 28.3 % (36.0-47.0) L 01/19/18 03:44 MCV 85.2 fL (80.0-100.0) 01/19/18 03:44 MCH 28.0 pg (27.0-34.0) 01/19/18 03:44 MCHC 32.9 g/dL (33.0-35.0) L 01/19/18 03:44 RDW 17.0 % (11.6-16.5) H 01/19/18 03:44 Plt Count 425 X10^3/uL (150.0-450.0) 01/19/18 03:44 Plt Count Comment Adequate (ADEQUATE) 01/19/18 03:44 MPV 8.5 fL (7.4-11.0) 01/19/18 03:44 Neut % (Auto) 68.4 % (42.0-75.0) 01/19/18 03:44 Lymph % (Auto) 20.5 % (21.0-51.0) L 01/19/18 03:44 [place] % (Auto) 9.0 % (0.0-13.0) 01/19/18 03:44 Eos % (Auto) 0.7 % (0.9-2.9) L 01/19/18 03:44 Baso % (Auto) 1.4 % (0.2-1.0) H 01/19/18 03:44 Neut # (Auto) 10.7 x10^3/uL (2.2-4.8) H 01/19/18 03:44 Lymph # (Auto) 3.2 X10^3/uL (1.3-2.9) H 01/19/18 03:44 [place] # (Auto) 1.4 x10^3/uL (0.3-0.8) H 01/19/18 03:44 Eos # (Auto) 0.1 x10^3/uL (0.0-0.2) 01/19/18 03:44 Baso # (Auto) 0.2 X10^3/uL (0.0-0.1) H 01/19/18 03:44 Absolute Nucleated RBC 0.0 /100WBC 01/19/18 03:44 Plt Morphology Comment Normal (NORMAL) 01/19/18 03:44 RBC Morphology Abnormal (NORMAL) A 01/19/18 03:44 Anisocytosis 1+ A 01/19/18 03:44 Microcytosis 1+ A 01/19/18 03:44 Stomatocytes Present 01/19/18 03:44 INR Target Range - 01/19/18 03:44 INR 1.11 (0.8-1.3) 01/19/18 03:44 APTT 35.4 SECONDS (22.9-36.5) 01/19/18 03:44 PTT Comment - 01/19/18 03:44 Sodium 137 mmol/L (136-145) 01/19/18 03:44 Corrected Sodium TNP 01/19/18 03:44 Potassium 3.6 mmol/L (3.5-5.1) 01/19/18 03:44 Chloride 97 mmol/L (98-107) L 01/19/18 03:44 Carbon Dioxide 31.3 mmol/L (21-32) 01/19/18 03:44 BUN 12 mg/dL (7-18) 01/19/18 03:44 Creatinine 1.27 mg/dL (0.55-1.02) H 01/19/18 03:44 Est GFR (MDRD) Af Amer 54 (>60) L 01/19/18 03:44 Est GFR (MDRD) Non-Af 45 (>60) L 01/19/18 03:44 Glucose 83 mg/dL (65-99) 01/19/18 03:44 Calcium 7.8 mg/dL (8.5-10.1) L 01/19/18 03:44 Corrected Calcium 9.6 mg/dL (8.5-10.1) 01/19/18 03:44 Magnesium 0.6 mg/dL (1.7-2.9) L 01/19/18 03:44 Total Bilirubin 0.60 mg/dL (0.2-1.0) 01/19/18 03:44 AST 103 Units/L (15-37) H 01/19/18 03:44 ALT 29 Units/L (12-78) 01/19/18 03:44 Alkaline Phosphatase 556 Units/L (46-116) H 01/19/18 03:44 Creatine Kinase 51 Units/L (26-192) 01/19/18 03:44 CK-MB (CK-2) < 1.0 ng/mL (0-4.0) 01/19/18 03:44 CK/CKMB % Calc 2.0 % (<4) 01/19/18 03:44 Troponin I < 0.02 ng/mL (0-1.5) 01/19/18 03:44 Total Protein 7.0 g/dL (6.4-8.2) 01/19/18 03:44 Albumin 1.7 g/dL (3.4-5.0) L 01/19/18 03:44 Globulin 5.3 g/dL (2.5-4.5) H 01/19/18 03:44 Albumin/Globulin Ratio 0.3 Ratio (1.1-2.1) L 01/19/18 03:44 H. pylori IgG Antibody Negative (NEGATIVE) 01/19/18 03:44 - Diagnosis Discharge Problem: Chest pain, rule out acute myocardial infarction, COPD (chronic obstructive pulmonary disease) - Discharge Plan Disposition: ADMITTED INPATIENT Condition: Stable
[2018-01-19] MEDS ORDERED: ASPIRIN ONE (03:39)
[2018-01-19] MEDS ORDERED: SOLU-Medrol 125 MG VIAL ONE (03:39)
[2018-01-19] MEDS ORDERED: LEVSIN/MAALOX/LIDOC VISC ONE (03:39)
[2018-01-19 03:55] LABS: BASOPHILS # (AUTO) 0.2 X10^3/uL (0.0-0.1); BASOPHILS % (AUTO) 1.4 % (0.2-1.0); EOSINOPHILS # (AUTO) 0.1 x10^3/uL (0.0-0.2); EOSINOPHILS % (AUTO) 0.7 % (0.9-2.9); HEMATOCRIT 28.3 % (36.0-47.0); HEMOGLOBIN 9.3 g/dL (12.0-16.0); LYMPHOCYTES # (AUTO) 3.2 X10^3/uL (1.3-2.9); LYMPHOCYTES % (AUTO) 20.5 % (21.0-51.0); MEAN CORPUSCULAR HGB CONC 32.9 g/dL (33.0-35.0); MEAN CORPUSCULAR VOLUME 85.2 fL (80.0-100.0); MEAN PLATELET VOLUME 8.5 fL (7.4-11.0); MONOCYTES # (AUTO) 1.4 x10^3/uL (0.3-0.8); NEUTROPHILS # (AUTO) 10.7 x10^3/uL (2.2-4.8); NEUTROPHILS % (AUTO) 68.4 % (42.0-75.0); PLATELET COUNT 425 X10^3/uL (150.0-450.0); RED BLOOD COUNT 3.33 X10^6/uL (3.5-5.4); WHITE BLOOD COUNT 15.6 X10^3/uL (3.6-10.0)
--- NOTE | 2018-01-19 04:04 | RAD ---
HISTORY: 63-year-old female with chest pain. History of asthma, CHF and COPD. Study: Frontal view of the chest. Comparison: Chest radiographs 01/10/2018 Findings: Right chest chemo port is stable. The trachea is midline. The cardiac silhouette is stably enlarged with low lung volumes and chronic prominence of the interstitium/perihilar lung markings. The lungs are clear without focal consolidat ion, effusion or pneumothorax. Soft tissues are unremarkable. Osseous structures are unremarkable. IMPRESSION: 1. No acute cardiopulmonary disease in a patient with COPD. Reported By:
[2018-01-19 04:09] LABS: BLOOD UREA NITROGEN 12 mg/dL (7-18); CALCIUM 7.8 mg/dL (8.5-10.1); CARBON DIOXIDE 31.3 mmol/L (21-32); CHLORIDE 97 mmol/L (98-107); CREATININE 1.27 mg/dL (0.55-1.02); SODIUM 137 mmol/L (136-145); TROPONIN I < 0.02 ng/mL (0-1.5); eGFR NON BLACK RACES 45 (>60)
[2018-01-19 04:15] LABS: ALANINE AMINOTRANSFERASE 29 Units/L (12-78); ALBUMIN 1.7 g/dL (3.4-5.0); ALKALINE PHOSPHATASE 556 Units/L (46-116); ASPARTATE AMINO TRANSFERASE 103 Units/L (15-37); COR CA(FOR HYPOALB) 9.6 mg/dL (8.5-10.1); CREATINE KINASE 51 Units/L (26-192); CREATINE KINASE MB < 1.0 ng/mL (0-4.0); MAGNESIUM 0.6 mg/dL (1.7-2.9)
[2018-01-19 04:21] LABS: ANISOCYTOSIS 1+; MICROCYTOSIS 1+; PLATELET MORPHOLOGY COMMENT NORMAL (NORMAL)
[2018-01-19 04:22] LABS: STOMATOCYTES PRESENT
[2018-01-19 05:52] LABS: CKMB % 1.8 % (<4); CREATINE KINASE 55 Units/L (26-192); CREATINE KINASE MB < 1.0 ng/mL (0-4.0); TROPONIN I < 0.02 ng/mL (0-1.5)
[2018-01-19 05:53] LABS: CHOL/HDL RATIO 4.2 (0.0-5.0)
[2018-01-19] MEDS ORDERED: NEURONTIN TAB 600 MG ONE (06:09)
[2018-01-19] MEDS: NEURONTIN CAP 300 MG PO SCH ×3 (06:18→22:27)
[2018-01-19] MEDS ORDERED: LEVAQUIN PREMIX IV 500 MG 500 MG/100 ML BAG IV ONE (08:00)
[2018-01-19] MEDS: LASIX PO SCH ×2 (08:49→20:02)
[2018-01-19] MEDS: LOVENOX INJ 40 MG SYR SC SCH (08:49)
[2018-01-19] MEDS: PROTONIX INJ 40 MG VIAL IVP SCH (08:50)
[2018-01-19] MEDS: ZOFRAN INJ 4 MG VIAL IVP PRN (08:50)
[2018-01-19] MEDS: DUONEB 0.5 MG/3 MG NEB SCH ×4 (08:51→20:48)
[2018-01-19] MEDS ORDERED: LEVAQUIN PREMIX IV 500 MG 500 MG/100 ML BAG IV SCH (09:00)
[2018-01-19] MEDS ORDERED: DULCOLAX SUPPOSITORY 10 MG RECTAL SCH (11:00)
[2018-01-19] MEDS: MILK OF MAGNESIA PO SCH ×2 (11:31→20:02)
[2018-01-19 12:48] LABS: CREATINE KINASE 47 Units/L (26-192); CREATINE KINASE MB < 1.0 ng/mL (0-4.0); TROPONIN I < 0.02 ng/mL (0-1.5)
[2018-01-19 12:50] LABS: CKMB % 2.1 % (<4)
[2018-01-19] MEDS: SOLU-Medrol 40 MG VIAL IVP SCH ×2 (13:13→22:27)
[2018-01-19] MEDS: PHENERGAN INJ 25 MG IV PRN ×2 (16:40→23:27)
--- NOTE | 2018-01-19 16:49 | DR.H&P ---
H&P - History & Physical for Day of: H&P Date: 01/19/18 - Chief Complaint Chief Complaint: CHEST PAIN, SOB - History of Present Illness History of Present Illness: IS A 63 YEAR OLD PATIENT OF WHO PRESENTED TO THE EMERGENCY ROOM VIA EMS WITH COMPLAINTS OF XIPHOID CHEST PAIN, SHORTNESS OF BREATH, AND WHEEZING. PATIENT REPORTS THAT SHE WAS AWOKEN FROM A SLEEP WITH PAIN ABOUT AN HOUR PRIOR TO ARRIVAL. SHE DENIES COLD, COUGH, FEVER, OR CHILLS. SHE DESCRIBES PAIN SHARP AND WORSE WHEN SHE TAKES A DEEP BREATH. SHE ALSO REPORTS EPIGASTRIC PAIN. MEDICAL HISTORY INCLUDES ANXIETY, ARTHRITIS, ASTHMA, CHF, COPD, CAD, GERD, AND HYPERTENSION. ON ARRIVLA, VITALS WERE 99.3-135-28-92%RA-107/52. LABS WERE OBTAINED. ABNORMAL LAB VALUES INCLUDE THE FOLLOWING: WBC 15.6, RBC 3.33, HGB 9.3, HCT 28.3, CHLORIDE 97, CREATININE 1.27, CALCIUM 7.8, MAGNESIUM 0.6, AST 103, ALK PHOS 556, ALBUMIN 1.7, GLOBULIN 5.3, TRIGLYCERIDES 178. CARDIAC ENZYMES WITHIN NORMAL LIMITS. CHEST XRAY REVEALS : No acute cardiopulmonary disease in a patient with COPD. EKG REVEALS SINUS TACHYCARDIA WITH HR 116. SHE WAS GIVEN SOLU-MEDROL 125MG IV X 1, XOPENEX NEB [place] X 1, ASA 325MG X 1, GI COCKTAIL 30ML, AND LEVAQUIN 500G IV IN THE ER. PATIENT ADMITTED FOR FURTHER TREATMENTE AND EVALUATION. WE PLAN TO FOLLOW UP WITH AM LABS AND CHEST XRAY AND CONTINUE TO MONITOR. - Past Medical History Past Medical History: Anxiety, Arthritis, Asthma, CHF, COPD, Coronary Artery Disease, GERD, Hypertension - Past Surgical History Surgical History: Abdominal Surgery, Appendectomy, Bowel Resection, Cholecystectomy - Family History Family Medical History: Diabetes Mellitus, Hypertension - Social History Does any household member use tobacco: No Alcohol Use: None Drug Use: Prescription Drugs - Medications Home Medications: ketorolac [From Toradol] Allergy (Verified 01/19/18 05:23) nalbuphine [From Nubain] Allergy (Verified 01/19/18 05:23) Penicillins Allergy (Verified 01/19/18 05:23) Sulfa (Sulfonamide Antibiotics) [SULFA] Allergy (Verified 01/19/18 05:23) BETA BLOCKERS Allergy (Uncoded 01/19/18 05:23) - Review of Systems Constitutional: Weakness Eyes: No Symptoms Reported ENT: No Symptoms Reported Respiratory: Shortness of Breath, Wheezing Cardiovascular: Chest Pain Gastrointestinal: Nausea, Abdominal Pain Genitourinary: No Symptoms Reported Musculoskeletal: No Symptoms Reported Skin: No Symptoms Reported Neurological: Weakness - Physical Exam Vital Signs: Temperature 97.7 F Pulse Rate [Right] 101 Pulse Rate 108 Respiratory Rate 20 Blood Pressure [Left Arm] 108/62 Blood Pressure [Right Arm] 152/76 Blood Pressure 107/52 O2 Sat by Pulse Oximetry 94 Oriented: Normal Eyes: Normal Ear: Normal Nose: Normal Throat: Normal Respiratory: Wheezes Throughout Cardiovascular: Edema (LOWER EXTREMITY NON PITTING EDEMA ) : Normal Auscultation: Bowel Sounds: Normal Palpation: Normal Tenderness: Normal Skin: Normal Musculoskeletal: Normal Psychiatric: Normal Mood Description: Calm Affect: Normal Speech Pattern: Clear - Assessment/Plan (1) Chest pain, rule out acute myocardial infarction Status: Acute Plan: SERIAL CARDIAC ENZYMES & EKG, SUPPLEMENTAL OXYGEN, CONTINUE TO MONITOR (2) COPD (chronic obstructive pulmonary disease) Qualifiers: COPD type: COPD with acute exacerbation Qualified Code(s): J44.1 - Chronic obstructive pulmonary disease with (acute) exacerbation Status: Acute Plan: DUONEBS Q4H, SUPPLEMENTAL OXYGEN, SOLU-MEDROL 80MG IV 8H (3) Bronchitis Status: Acute Plan: LEVAQUIN 250MG IV DAILY - Allergies Allergies/Adverse Reactions: Allergies Allergy/AdvReac Type Severity Reaction Status Date / Time ketorolac [From Toradol] Allergy Verified 01/19/18 05:23 nalbuphine [From Nubain] Allergy Verified 01/19/18 05:23 Penicillins Allergy Verified 01/19/18 05:23 Sulfa (Sulfonamide Allergy Verified 01/19/18 05:23 Antibiotics) [SULFA] BETA BLOCKERS Allergy Uncoded 01/19/18 05:23
[2018-01-19] MEDS: XANAX PO PRN (17:21)
[2018-01-19] MEDS: COLACE CAP 100 MG PO SCH (20:01)
[2018-01-19] MEDS: ROBITUSSIN DM PO PRN (23:27)
[2018-01-20] MEDS ORDERED: DUONEB 0.5 MG/3 MG ONE ×4 (00:43→20:14)
[2018-01-20] MEDS: DUONEB 0.5 MG/3 MG NEB SCH ×6 (00:57→20:48)
[2018-01-20] MEDS: NEURONTIN CAP 300 MG PO SCH ×3 (05:39→22:42)
[2018-01-20] MEDS: SOLU-Medrol 40 MG VIAL IVP SCH ×3 (05:39→22:43)
[2018-01-20 06:25] LABS: BASOPHILS % (AUTO) 0.2 % (0.2-1.0); HEMATOCRIT 26.5 % (36.0-47.0); HEMOGLOBIN 8.8 g/dL (12.0-16.0); LYMPHOCYTES # (AUTO) 1.2 X10^3/uL (1.3-2.9); LYMPHOCYTES % (AUTO) 10.5 % (21.0-51.0); MEAN CORPUSCULAR HEMOGLOBIN 28.3 pg (27.0-34.0); MEAN CORPUSCULAR HGB CONC 33.2 g/dL (33.0-35.0); MEAN CORPUSCULAR VOLUME 85.1 fL (80.0-100.0); MEAN PLATELET VOLUME 8.7 fL (7.4-11.0); MONOCYTES # (AUTO) 0.5 x10^3/uL (0.3-0.8); MONOCYTES % (AUTO) 4.1 % (0.0-13.0); NEUTROPHILS # (AUTO) 10.1 x10^3/uL (2.2-4.8); NEUTROPHILS % (AUTO) 85.2 % (42.0-75.0); PLATELET COUNT 454 X10^3/uL (150.0-450.0); RED BLOOD COUNT 3.11 X10^6/uL (3.5-5.4); RED CELL DISTRIBUTION WIDTH 17.7 % (11.6-16.5); WHITE BLOOD COUNT 11.8 X10^3/uL (3.6-10.0)
[2018-01-20 07:10] LABS: CALCIUM 7.8 mg/dL (8.5-10.1); CARBON DIOXIDE 34.8 mmol/L (21-32); COR CA(FOR HYPOALB) 9.4 mg/dL (8.5-10.1); CREATININE 1.33 mg/dL (0.55-1.02); TOTAL PROTEIN 7.5 g/dL (6.4-8.2)
[2018-01-20] MEDS: PHENERGAN INJ 25 MG IV PRN ×3 (07:35→20:36)
[2018-01-20] MEDS ORDERED: POTASSIUM CHL 60 MEQ/NS 0.45% 500 ML IV PRN (07:56)
[2018-01-20] MEDS ORDERED: K-RIDER 10 MEQ/NS 100 ML 10 MEQ/100 ML BAG IV PRN (07:56)
[2018-01-20] MEDS ORDERED: POTASSIUM CHLORIDE LIQ 20 MEQ UDC PO PRN (07:56)
[2018-01-20] MEDS ORDERED: K-LYTE EFFERVESCENT PO PRN (07:56)
[2018-01-20] MEDS: LASIX PO SCH ×3 (09:50→20:35)
[2018-01-20] MEDS: LOVENOX INJ 40 MG SYR SC SCH (09:58)
[2018-01-20] MEDS: LEVAQUIN PREMIX IV 250 MG 250 MG/50 ML BAG IV SCH (09:59)
[2018-01-20] MEDS: MILK OF MAGNESIA PO SCH ×2 (09:59→23:42)
[2018-01-20] MEDS: PROTONIX INJ 40 MG VIAL IVP SCH (09:59)
[2018-01-20] MEDS ORDERED: NS 250 ML IV 250 ML IV ONE (10:02)
[2018-01-20] MEDS: XANAX PO PRN (10:03)
[2018-01-20] MEDS: MORPHINE SULFATE INJ 2 MG INJ IVP PRN ×2 (11:49→20:36)
[2018-01-20] MEDS: MAGNESIUM SULFATE 1 GRAM/100 mL PREMIX 1 GM/100 ML BAG IV PRN ×2 (11:50→14:17)
[2018-01-20] MEDS: POTASSIUM CHL 40 MEQ/NS 0.45% 500 ML IV PRN (16:30)
--- NOTE | 2018-01-20 17:57 | PCM.PROG ---
Progress Note - Progress Note for Day of Date: 01/20/18 - Subjective Subjective: IS A 63 YEAR OLD PATIENT OF WHO PRESENTED TO THE EMERGENCY ROOM VIA EMS WITH COMPLAINTS OF XIPHOID CHEST PAIN, SHORTNESS OF BREATH, AND WHEEZING. PATIENT REPORTS THAT SHE WAS AWOKEN FROM A SLEEP WITH PAIN ABOUT AN HOUR PRIOR TO ARRIVAL. SHE DENIES COLD, COUGH, FEVER, OR CHILLS. SHE DESCRIBES PAIN SHARP AND WORSE WHEN SHE TAKES A DEEP BREATH. SHE ALSO REPORTS EPIGASTRIC PAIN. MEDICAL HISTORY INCLUDES ANXIETY, ARTHRITIS, ASTHMA, CHF, COPD, CAD, GERD, AND HYPERTENSION. PT ON IV ATBX, RESP THERAPY O2 SUPPLEMENT - Past Medical Family Social History Past Med/Fam/Surg Hx: No changes since H&P Allergies: Allergies ketorolac [From Toradol] Allergy (Verified 01/19/18 05:23) nalbuphine [From Nubain] Allergy (Verified 01/19/18 05:23) Penicillins Allergy (Verified 01/19/18 05:23) Sulfa (Sulfonamide Antibiotics) [SULFA] Allergy (Verified 01/19/18 05:23) BETA BLOCKERS Allergy (Uncoded 01/19/18 05:23) - Review of Systems ROS: No change since H&P - Vital Signs and I&O's Vital Signs: Temperature 98.5 F Pulse Rate [Right] 128 Pulse Rate 102 Respiratory Rate 20 Blood Pressure [Left Arm] 131/64 Blood Pressure [Right Arm] 152/76 Blood Pressure 107/52 O2 Sat by Pulse Oximetry 95 Intake and Output: Intake & Output 01/18/18 01/19/18 01/20/18 01/21/18 11:59 11:59 11:59 11:59 Intake Total 0 / 0 430 / 430 120 / 120 Balance 0 / 0 430 / 430 120 / 120 - Physical Exam Oriented: Normal Eyes: Normal Ear: Normal Nose: Normal Throat: Normal Respiratory: Diminished Cardiovascular: Edema (LOWER EXTREMITY NON PITTING EDEMA ) : Normal Auscultation: Bowel Sounds: Normal Tenderness: Normal Skin: Normal Musculoskeletal: Normal Psychiatric: Normal Mood Description: Calm Affect: Normal Speech Pattern: Clear, Appropriate - Laboratory and Diagnostics Result Diagrams: 01/20/18 05:54 01/20/18 05:54 Labs: Laboratory WBC 11.8 X10^3/uL (3.6-10.0) H 01/20/18 05:54 RBC 3.11 X10^6/uL (3.5-5.4) L 01/20/18 05:54 Hgb 8.8 g/dL (12.0-16.0) L 01/20/18 05:54 Hct 26.5 % (36.0-47.0) L 01/20/18 05:54 MCV 85.1 fL (80.0-100.0) 01/20/18 05:54 MCH 28.3 pg (27.0-34.0) 01/20/18 05:54 MCHC 33.2 g/dL (33.0-35.0) 01/20/18 05:54 RDW 17.7 % (11.6-16.5) H 01/20/18 05:54 Plt Count 454 X10^3/uL (150.0-450.0) H 01/20/18 05:54 Plt Count Comment Adequate (ADEQUATE) 01/19/18 03:44 MPV 8.7 fL (7.4-11.0) 01/20/18 05:54 Neut % (Auto) 85.2 % (42.0-75.0) H 01/20/18 05:54 Lymph % (Auto) 10.5 % (21.0-51.0) L 01/20/18 05:54 [place] % (Auto) 4.1 % (0.0-13.0) 01/20/18 05:54 Eos % (Auto) 0.0 % (0.9-2.9) L 01/20/18 05:54 Baso % (Auto) 0.2 % (0.2-1.0) 01/20/18 05:54 Neut # (Auto) 10.1 x10^3/uL (2.2-4.8) H 01/20/18 05:54 Lymph # (Auto) 1.2 X10^3/uL (1.3-2.9) L 01/20/18 05:54 [place] # (Auto) 0.5 x10^3/uL (0.3-0.8) 01/20/18 05:54 Eos # (Auto) 0.0 x10^3/uL (0.0-0.2) 01/20/18 05:54 Baso # (Auto) 0.0 X10^3/uL (0.0-0.1) 01/20/18 05:54 Absolute Nucleated RBC 0.1 /100WBC 01/20/18 05:54 Plt Morphology Comment Normal (NORMAL) 01/19/18 03:44 RBC Morphology Abnormal (NORMAL) A 01/19/18 03:44 Anisocytosis 1+ A 01/19/18 03:44 Microcytosis 1+ A 01/19/18 03:44 Stomatocytes Present 01/19/18 03:44 INR Target Range - 01/19/18 03:44 INR 1.11 (0.8-1.3) 01/19/18 03:44 APTT 35.4 SECONDS (22.9-36.5) 01/19/18 03:44 PTT Comment - 01/19/18 03:44 Sodium 140 mmol/L (136-145) 01/20/18 05:54 Corrected Sodium 141 mmol/L (136-145) 01/20/18 05:54 Potassium 3.3 mmol/L (3.5-5.1) L 01/20/18 05:54 Chloride 97 mmol/L (98-107) L 01/20/18 05:54 Carbon Dioxide 34.8 mmol/L (21-32) H 01/20/18 05:54 BUN 13 mg/dL (7-18) 01/20/18 05:54 Creatinine 1.33 mg/dL (0.55-1.02) H 01/20/18 05:54 Est GFR (MDRD) Af Amer 51 (>60) L 01/20/18 05:54 Est GFR (MDRD) Non-Af 43 (>60) L 01/20/18 05:54 Glucose 141 mg/dL (65-99) H 01/20/18 05:54 POC Glucose (mg/dL) 161 mg/dL (65-99) H 01/20/18 11:33 Calcium 7.8 mg/dL (8.5-10.1) L 01/20/18 05:54 Corrected Calcium 9.4 mg/dL (8.5-10.1) 01/20/18 05:54 Magnesium 1.6 mg/dL (1.7-2.9) L 01/20/18 05:54 Total Bilirubin 0.60 mg/dL (0.2-1.0) 01/20/18 05:54 AST 91 Units/L (15-37) H 01/20/18 05:54 ALT 16 Units/L (12-78) 01/20/18 05:54 Alkaline Phosphatase 637 Units/L (46-116) H 01/20/18 05:54 Creatine Kinase 47 Units/L (26-192) 01/19/18 11:50 CK-MB (CK-2) < 1.0 ng/mL (0-4.0) 01/19/18 11:50 CK/CKMB % Calc 2.1 % (<4) 01/19/18 11:50 Troponin I < 0.02 ng/mL (0-1.5) 01/19/18 11:50 Total Protein 7.5 g/dL (6.4-8.2) 01/20/18 05:54 Albumin 2.0 g/dL (3.4-5.0) L 01/20/18 05:54 Globulin 5.5 g/dL (2.5-4.5) H 01/20/18 05:54 Albumin/Globulin Ratio 0.4 Ratio (1.1-2.1) L 01/20/18 05:54 Triglycerides 178 mg/dL (0-150) H 01/19/18 05:15 Cholesterol 80 mg/dL (0-200) 01/19/18 05:15 LDL Cholesterol, Calc 25 mg/dL (0-100) 01/19/18 05:15 HDL Cholesterol 19 mg/dL (40-60) L 01/19/18 05:15 Cholesterol/HDL Ratio 4.2 (0.0-5.0) 01/19/18 05:15 H. pylori IgG Antibody Negative (NEGATIVE) 01/19/18 03:44 - Plan (1) SOB (shortness of breath) Status: Acute Plan: CONTINUE RESP THERAPY, IV ATBX, SUPPLEMENTAL O2, IV STEROIDS. CHF MANAGEMENT, BP AND LIPID CONTROL. REPEAT AM LABS AND CXR. CO N/V/D STOOL STUDIES, GASTROCULT (2) COPD exacerbation Status: Acute (3) COPD (chronic obstructive pulmonary disease) Status: Acute Qualifiers: COPD type: COPD with acute exacerbation Qualified Code(s): J44.1 - Chronic obstructive pulmonary disease with (acute) exacerbation Plan: DUONEBS Q4H, SUPPLEMENTAL OXYGEN, SOLU-MEDROL 80MG IV 8H (4) CHF (congestive heart failure) Status: Chronic (5) GERD (gastroesophageal reflux disease) Status: Chronic (6) Degenerative joint disease (DJD) of hip Status: Chronic Qualifiers: Osteoarthritis type: unspecified Laterality: right Qualified Code(s): M16.11 - Unilateral primary osteoarthritis, right hip (7) DHARA (generalized anxiety disorder) Status: Chronic (8) DDD (degenerative disc disease), lumbosacral Status: Chronic (9) Essential hypertension Status: Chronic
[2018-01-20] MEDS: COLACE CAP 100 MG PO SCH (20:35)
[2018-01-20] MEDS: ROBITUSSIN DM PO PRN (22:16)
[2018-01-21] MEDS ORDERED: DUONEB 0.5 MG/3 MG ONE ×3 (00:48→21:43)
[2018-01-21] MEDS: DUONEB 0.5 MG/3 MG NEB SCH ×6 (00:55→21:48)
[2018-01-21 05:38] LABS: BASOPHILS % (AUTO) 0.2 % (0.2-1.0); HEMATOCRIT 22.4 % (36.0-47.0); HEMOGLOBIN 7.6 g/dL (12.0-16.0); LYMPHOCYTES # (AUTO) 0.8 X10^3/uL (1.3-2.9); LYMPHOCYTES % (AUTO) 6.1 % (21.0-51.0); MEAN CORPUSCULAR HEMOGLOBIN 29.2 pg (27.0-34.0); MEAN CORPUSCULAR HGB CONC 33.8 g/dL (33.0-35.0); MEAN CORPUSCULAR VOLUME 86.5 fL (80.0-100.0); MEAN PLATELET VOLUME 8.5 fL (7.4-11.0); MONOCYTES # (AUTO) 0.7 x10^3/uL (0.3-0.8); MONOCYTES % (AUTO) 5.2 % (0.0-13.0); NEUTROPHILS # (AUTO) 11.8 x10^3/uL (2.2-4.8); NEUTROPHILS % (AUTO) 88.5 % (42.0-75.0); PLATELET COUNT 407 X10^3/uL (150.0-450.0); RED BLOOD COUNT 2.59 X10^6/uL (3.5-5.4); RED CELL DISTRIBUTION WIDTH 17.3 % (11.6-16.5); WHITE BLOOD COUNT 13.3 X10^3/uL (3.6-10.0)
[2018-01-21 05:40] LABS: ALBUMIN 2.1 g/dL (3.4-5.0); CARBON DIOXIDE 33.6 mmol/L (21-32); COR CA(FOR HYPOALB) 9.5 mg/dL (8.5-10.1); CREATININE 1.68 mg/dL (0.55-1.02); MAGNESIUM 2.3 mg/dL (1.7-2.9); TOTAL PROTEIN 7.3 g/dL (6.4-8.2)
[2018-01-21 06:05] LABS: ANISOCYTOSIS 1+; HYPOCHROMASIA SLIGHT; MICROCYTOSIS 1+; PLATELET MORPHOLOGY COMMENT NORMAL (NORMAL)
[2018-01-21] MEDS: MORPHINE SULFATE INJ 2 MG INJ IVP PRN ×3 (06:29→20:55)
[2018-01-21] MEDS: NEURONTIN CAP 300 MG PO SCH ×3 (06:29→21:05)
[2018-01-21] MEDS: SOLU-Medrol 40 MG VIAL IVP SCH ×2 (06:29→14:45)
[2018-01-21 07:49] VITALS: BMI 38.2
[2018-01-21] MEDS: PROTONIX INJ 40 MG VIAL IVP SCH (09:26)
[2018-01-21] MEDS: LASIX PO SCH ×2 (09:26→20:56)
[2018-01-21] MEDS: LEVAQUIN PREMIX IV 250 MG 250 MG/50 ML BAG IV SCH (09:26)
[2018-01-21] MEDS: LOVENOX INJ 40 MG SYR SC SCH (09:30)
[2018-01-21] MEDS: XANAX PO PRN ×2 (09:32→16:43)
[2018-01-21] MEDS: MILK OF MAGNESIA PO SCH ×2 (09:34→20:56)
[2018-01-21] MEDS ORDERED: NS 250 ML IV 250 ML IV ONE (10:20)
[2018-01-21] MEDS: ROBITUSSIN DM PO PRN ×2 (15:46→22:30)
--- NOTE | 2018-01-21 17:48 | PCM.PROG ---
Progress Note - Progress Note for Day of Date: 01/21/18 - Subjective Subjective: IS A 63 YEAR OLD PATIENT OF WHO PRESENTED TO THE EMERGENCY ROOM VIA EMS WITH COMPLAINTS OF XIPHOID CHEST PAIN, SHORTNESS OF BREATH, AND WHEEZING. PATIENT REPORTS THAT SHE WAS AWOKEN FROM A SLEEP WITH PAIN ABOUT AN HOUR PRIOR TO ARRIVAL. SHE DENIES COLD, COUGH, FEVER, OR CHILLS. SHE DESCRIBES PAIN SHARP AND WORSE WHEN SHE TAKES A DEEP BREATH. SHE ALSO REPORTS EPIGASTRIC PAIN. PT CO N/V/D WHICH HAS IMPROVED SINCE ADMISSION. PT STATES SHE HAD TO RECEIVE BLOOD WHILE IN THE CARE HOME A FEW WEEKS AGO. PT STATES NAUSEA IMPROVED AND ASKING TO ADVANCE HER DIET. KUB ORDERED THIS AM, STOOL AND GASTROCCULT ORDERED. PT CURRENTLY ON PPI - Past Medical Family Social History Past Med/Fam/Surg Hx: No changes since H&P Allergies: Allergies ketorolac [From Toradol] Allergy (Verified 01/19/18 05:23) nalbuphine [From Nubain] Allergy (Verified 01/19/18 05:23) Penicillins Allergy (Verified 01/19/18 05:23) Sulfa (Sulfonamide Antibiotics) [SULFA] Allergy (Verified 01/19/18 05:23) BETA BLOCKERS Allergy (Uncoded 01/19/18 05:23) - Review of Systems ROS: No change since H&P - Vital Signs and I&O's Vital Signs: Temperature 97.9 F Pulse Rate [Left Brachial] 121 Pulse Rate [Right] 120 Pulse Rate 112 Respiratory Rate 20 Blood Pressure [Left Arm] 118/67 Blood Pressure [Right Arm] 133/61 Blood Pressure 107/52 O2 Sat by Pulse Oximetry 93 Intake and Output: Intake & Output 01/19/18 01/20/18 01/21/18 01/22/18 11:59 11:59 11:59 11:59 Intake Total 0 / 0 430 / 430 1038 / 1038 1260 / 1260 Balance 0 / 0 430 / 430 1038 / 1038 1260 / 1260 - Physical Exam Oriented: Normal Eyes: Normal Ear: Normal Nose: Normal Throat: Normal Respiratory: Diminished Cardiovascular: Edema (LOWER EXTREMITY NON PITTING EDEMA ) : Normal Auscultation: Bowel Sounds: Normal Palpation: Other (MILD DIFFUSE ABDOMINAL DISTENTION) Tenderness: Epigastric, Mild Skin: Normal Musculoskeletal: Back:Thoracic, Back:Lumbar, Motor Deficit, Sensory Deficit Psychiatric: Normal Mood Description: Calm Affect: Normal Speech Pattern: Clear, Appropriate - Laboratory and Diagnostics Result Diagrams: 01/21/18 04:59 01/21/18 04:59 Labs: Laboratory WBC 13.3 X10^3/uL (3.6-10.0) H 01/21/18 04:59 RBC 2.59 X10^6/uL (3.5-5.4) L 01/21/18 04:59 Hgb 7.6 g/dL (12.0-16.0) L 01/21/18 04:59 Hct 22.4 % (36.0-47.0) L 01/21/18 04:59 MCV 86.5 fL (80.0-100.0) 01/21/18 04:59 MCH 29.2 pg (27.0-34.0) 01/21/18 04:59 MCHC 33.8 g/dL (33.0-35.0) 01/21/18 04:59 RDW 17.3 % (11.6-16.5) H 01/21/18 04:59 Plt Count 407 X10^3/uL (150.0-450.0) 01/21/18 04:59 Plt Count Comment Adequate (ADEQUATE) 01/21/18 04:59 MPV 8.5 fL (7.4-11.0) 01/21/18 04:59 Neut % (Auto) 88.5 % (42.0-75.0) H 01/21/18 04:59 Lymph % (Auto) 6.1 % (21.0-51.0) L 01/21/18 04:59 [place] % (Auto) 5.2 % (0.0-13.0) 01/21/18 04:59 Eos % (Auto) 0.0 % (0.9-2.9) L 01/21/18 04:59 Baso % (Auto) 0.2 % (0.2-1.0) 01/21/18 04:59 Neut # (Auto) 11.8 x10^3/uL (2.2-4.8) H 01/21/18 04:59 Lymph # (Auto) 0.8 X10^3/uL (1.3-2.9) L 01/21/18 04:59 [place] # (Auto) 0.7 x10^3/uL (0.3-0.8) 01/21/18 04:59 Eos # (Auto) 0.0 x10^3/uL (0.0-0.2) 01/21/18 04:59 Baso # (Auto) 0.0 X10^3/uL (0.0-0.1) 01/21/18 04:59 Absolute Nucleated RBC 0.2 /100WBC 01/21/18 04:59 Plt Morphology Comment Normal (NORMAL) 01/21/18 04:59 RBC Morphology Abnormal (NORMAL) A 01/21/18 04:59 Hypochromasia Slight A 01/21/18 04:59 Anisocytosis 1+ A 01/21/18 04:59 Microcytosis 1+ A 01/21/18 04:59 Stomatocytes Present 01/19/18 03:44 INR Target Range - 01/19/18 03:44 INR 1.11 (0.8-1.3) 01/19/18 03:44 APTT 35.4 SECONDS (22.9-36.5) 01/19/18 03:44 PTT Comment - 01/19/18 03:44 Sodium 140 mmol/L (136-145) 01/21/18 04:59 Corrected Sodium 141 mmol/L (136-145) 01/21/18 04:59 Potassium 3.7 mmol/L (3.5-5.1) 01/21/18 04:59 Chloride 100 mmol/L (98-107) 01/21/18 04:59 Carbon Dioxide 33.6 mmol/L (21-32) H 01/21/18 04:59 BUN 17 mg/dL (7-18) 01/21/18 04:59 Creatinine 1.68 mg/dL (0.55-1.02) H 01/21/18 04:59 Est GFR (MDRD) Af Amer 39 (>60) L 01/21/18 04:59 Est GFR (MDRD) Non-Af 33 (>60) L 01/21/18 04:59 Glucose 159 mg/dL (65-99) H 01/21/18 04:59 POC Glucose (mg/dL) 148 mg/dL (65-99) H 01/20/18 20:46 Calcium 8.0 mg/dL (8.5-10.1) L 01/21/18 04:59 Corrected Calcium 9.5 mg/dL (8.5-10.1) 01/21/18 04:59 Magnesium 2.3 mg/dL (1.7-2.9) 01/21/18 04:59 Iron 150 ug/dL (50-175) 01/20/18 05:54 Transferrin 122 mg/dL (202-364) L 01/20/18 05:54 Ferritin 804 ng/mL (8-252) H 01/20/18 05:54 Total Bilirubin 0.50 mg/dL (0.2-1.0) 01/21/18 04:59 AST 54 Units/L (15-37) H 01/21/18 04:59 ALT 25 Units/L (12-78) 01/21/18 04:59 Alkaline Phosphatase 555 Units/L (46-116) H 01/21/18 04:59 Creatine Kinase 47 Units/L (26-192) 01/19/18 11:50 CK-MB (CK-2) < 1.0 ng/mL (0-4.0) 01/19/18 11:50 CK/CKMB % Calc 2.1 % (<4) 01/19/18 11:50 Troponin I < 0.02 ng/mL (0-1.5) 01/19/18 11:50 Total Protein 7.3 g/dL (6.4-8.2) 01/21/18 04:59 Albumin 2.1 g/dL (3.4-5.0) L 01/21/18 04:59 Globulin 5.2 g/dL (2.5-4.5) H 01/21/18 04:59 Albumin/Globulin Ratio 0.4 Ratio (1.1-2.1) L 01/21/18 04:59 Triglycerides 178 mg/dL (0-150) H 01/19/18 05:15 Cholesterol 80 mg/dL (0-200) 01/19/18 05:15 LDL Cholesterol, Calc 25 mg/dL (0-100) 01/19/18 05:15 HDL Cholesterol 19 mg/dL (40-60) L 01/19/18 05:15 Cholesterol/HDL Ratio 4.2 (0.0-5.0) 01/19/18 05:15 Vitamin B12 1083 pg/mL (193-986) H 01/20/18 05:54 Folate 7.9 ng/mL (>8.6) L 01/20/18 05:54 Stool Description 40 grs brown soft 01/21/18 14:45 Stl Occult Blood (IFOB) Positive (NEGATIVE) A 01/21/18 14:45 H. pylori IgG Antibody Negative (NEGATIVE) 01/19/18 03:44 - Plan (1) SOB (shortness of breath) Status: Acute Plan: CONTINUE RESP THERAPY, IV ATBX, SUPPLEMENTAL O2,. CHF MANAGEMENT, BP AND LIPID CONTROL. REPEAT AM LABS AND CXR. CO N/V/D STOOL STUDIES, GASTROCCULT (2) COPD exacerbation Status: Acute (3) COPD (chronic obstructive pulmonary disease) Status: Acute Qualifiers: COPD type: COPD with acute exacerbation Qualified Code(s): J44.1 - Chronic obstructive pulmonary disease with (acute) exacerbation Plan: DUONEBS Q4H, SUPPLEMENTAL OXYGEN, SOLU-MEDROL 80MG IV 8H (4) CHF (congestive heart failure) Status: Chronic (5) GERD (gastroesophageal reflux disease) Status: Chronic (6) Degenerative joint disease (DJD) of hip Status: Chronic Qualifiers: Osteoarthritis type: unspecified Laterality: right Qualified Code(s): M16.11 - Unilateral primary osteoarthritis, right hip (7) DHARA (generalized anxiety disorder) Status: Chronic (8) DDD (degenerative disc disease), lumbosacral Status: Chronic (9) Essential hypertension Status: Chronic (10) Nausea & vomiting Status: Acute Plan: KUB, NAUSEA CONTROL. PPI GERD TREATMENT, ADVANCE DIET TOLERATED
--- NOTE | 2018-01-21 19:13 | RAD ---
HISTORY: Pain Study: KUB Comparison: 05/28/2017 Findings: The gas pattern is unremarkable. There is no significant bowel dilatation. There is no free air. No u rinary calculi are seen . The bones are intact. IMPRESSION: Nonspecific gas pattern. Reported By:
[2018-01-21] MEDS: COLACE CAP 100 MG PO SCH (20:56)
[2018-01-22] MEDS ORDERED: DUONEB 0.5 MG/3 MG ONE ×2 (00:16→21:51)
[2018-01-22] MEDS: DUONEB 0.5 MG/3 MG NEB SCH ×6 (00:20→21:58)
[2018-01-22 05:15] LABS: BASOPHILS % (AUTO) 0.1 % (0.2-1.0); HEMATOCRIT 20.1 % (36.0-47.0); LYMPHOCYTES # (AUTO) 1.7 X10^3/uL (1.3-2.9); LYMPHOCYTES % (AUTO) 14.3 % (21.0-51.0); MEAN CORPUSCULAR HGB CONC 33.4 g/dL (33.0-35.0); MEAN CORPUSCULAR VOLUME 86.9 fL (80.0-100.0); MEAN PLATELET VOLUME 8.4 fL (7.4-11.0); MONOCYTES # (AUTO) 1.2 x10^3/uL (0.3-0.8); MONOCYTES % (AUTO) 10.1 % (0.0-13.0); NEUTROPHILS % (AUTO) 75.5 % (42.0-75.0); PLATELET COUNT 324 X10^3/uL (150.0-450.0); RED BLOOD COUNT 2.32 X10^6/uL (3.5-5.4); RED CELL DISTRIBUTION WIDTH 16.8 % (11.6-16.5); WHITE BLOOD COUNT 11.9 X10^3/uL (3.6-10.0)
[2018-01-22 05:29] LABS: HEMOGLOBIN 6.7 g/dL (12.0-16.0)
[2018-01-22 05:32] LABS: ALANINE AMINOTRANSFERASE 33 Units/L (12-78); ALKALINE PHOSPHATASE 620 Units/L (46-116); ASPARTATE AMINO TRANSFERASE 138 Units/L (15-37); BLOOD UREA NITROGEN 21 mg/dL (7-18); CALCIUM 7.6 mg/dL (8.5-10.1); CARBON DIOXIDE 31.3 mmol/L (21-32); CHLORIDE 98 mmol/L (98-107); COR CA(FOR HYPOALB) 9.2 mg/dL (8.5-10.1); CREATININE 1.79 mg/dL (0.55-1.02); SODIUM 138 mmol/L (136-145); TOTAL PROTEIN 6.2 g/dL (6.4-8.2); eGFR NON BLACK RACES 30 (>60)
[2018-01-22] MEDS: NEURONTIN CAP 300 MG PO SCH ×3 (06:11→21:25)
[2018-01-22] MEDS ORDERED: NS 250 ML IV 250 ML IV ONE ×3 (06:27→21:02)
[2018-01-22] MEDS: POTASSIUM CHL 40 MEQ/NS 0.45% 500 ML IV PRN (06:38)
[2018-01-22] MEDS: LOVENOX INJ 40 MG SYR SC SCH (08:26)
[2018-01-22] MEDS: LASIX PO SCH ×2 (08:26→21:25)
[2018-01-22] MEDS: LEVAQUIN PREMIX IV 250 MG 250 MG/50 ML BAG IV SCH (08:26)
[2018-01-22] MEDS: PROTONIX INJ 40 MG VIAL IVP SCH ×2 (08:27→21:18)
[2018-01-22] MEDS: MILK OF MAGNESIA PO SCH ×3 (08:27→23:20)
[2018-01-22 10:09] LABS: FREE T4 (FREE THYROXINE) 0.74 ng/dL (0.76-1.46); TSH (3RD GENERATION) 3.479 uIU/mL (0.358-3.74)
--- NOTE | 2018-01-22 12:32 | RAD ---
HISTORY: Shortness of breath Study: Chest AP portable Comparison: 01/19/2018 Findings: There is a port present on the right. The heart is enlarged. No congestive heart failure is noted. No acute alveolar infiltrates are identified. Mild interstitial lung changes are present. No pleural ef fusions are identified. The bony thorax is unremarkable. IMPRESSION: Moderate cardiomegaly without congestive heart failure Mild interstitial lung changes Reported By:
[2018-01-22] MEDS: PHENERGAN INJ 25 MG IV PRN ×2 (12:48→21:19)
[2018-01-22] MEDS: MORPHINE SULFATE INJ 2 MG INJ IVP PRN ×4 (12:55→21:22)
[2018-01-22] MEDS: XANAX PO PRN ×2 (12:56→21:25)
[2018-01-22] MEDS ORDERED: BENADRYL INJ 50 MG VIAL IVP ONE (16:27)
[2018-01-22] MEDS ORDERED: TYLENOL 325 MG TAB PO ONE (16:27)
--- NOTE | 2018-01-22 17:25 | PCM.PROG ---
Progress Note - Progress Note for Day of Date: 01/22/18 - Subjective Subjective: IS A 63 YEAR OLD PATIENT OF WHO PRESENTED TO THE EMERGENCY ROOM VIA EMS WITH COMPLAINTS OF XIPHOID CHEST PAIN, SHORTNESS OF BREATH, AND WHEEZING. PT CO N/V/D WHICH HAS IMPROVED SINCE ADMISSION. OCCULT STOOL POSITIVE WITH HGB DECREASED TO 6.7. PT STATES SHE HAD TO RECEIVE BLOOD WHILE IN THE LONG TERM A FEW WEEKS AGO. TYPE AND CROSS MATCH, TRANSFUSE PRBC. D/C L[place], REPEAT H & H, CXR Q AM. PT STATES NAUSEA IMPROVED AND ASKING TO ADVANCE HER DIET. PT CURRENTLY ON PPI - Past Medical Family Social History Past Med/Fam/Surg Hx: No changes since H&P Allergies: Allergies ketorolac [From Toradol] Allergy (Verified 01/19/18 05:23) nalbuphine [From Nubain] Allergy (Verified 01/19/18 05:23) Penicillins Allergy (Verified 01/19/18 05:23) Sulfa (Sulfonamide Antibiotics) [SULFA] Allergy (Verified 01/19/18 05:23) BETA BLOCKERS Allergy (Uncoded 01/19/18 05:23) - Review of Systems ROS: No change since H&P - Vital Signs and I&O's Vital Signs: Temperature 97.9 F Pulse Rate [Left Brachial] 113 Pulse Rate [Right] 99 Pulse Rate 112 Respiratory Rate 20 Blood Pressure [Left Arm] 151/70 Blood Pressure [Right Arm] 101/58 Blood Pressure 107/52 O2 Sat by Pulse Oximetry 99 Intake and Output: Intake & Output 01/20/18 01/21/18 01/22/18 01/23/18 11:59 11:59 11:59 11:59 Intake Total 430 / 430 1038 / 1038 2480 / 2480 560 / 560 Balance 430 / 430 1038 / 1038 2480 / 2480 560 / 560 - Physical Exam Oriented: Normal Eyes: Normal Ear: Normal Nose: Normal Throat: Normal Respiratory: Diminished Cardiovascular: Edema (LOWER EXTREMITY NON PITTING EDEMA ) : Normal Auscultation: Bowel Sounds: Normal Tenderness: Epigastric, Mild Skin: Normal Musculoskeletal: Back:Thoracic, Back:Lumbar, Motor Deficit, Sensory Deficit Psychiatric: Normal Mood Description: Calm Affect: Normal Speech Pattern: Clear, Appropriate - Laboratory and Diagnostics Result Diagrams: 01/22/18 04:25 01/22/18 15:00 Labs: Laboratory WBC 11.9 X10^3/uL (3.6-10.0) H 01/22/18 04:25 RBC 2.32 X10^6/uL (3.5-5.4) L 01/22/18 04:25 Hgb 6.7 g/dL (12.0-16.0) L* 01/22/18 04:25 Hct 20.1 % (36.0-47.0) L 01/22/18 04:25 MCV 86.9 fL (80.0-100.0) 01/22/18 04:25 MCH 29.0 pg (27.0-34.0) 01/22/18 04:25 MCHC 33.4 g/dL (33.0-35.0) 01/22/18 04:25 RDW 16.8 % (11.6-16.5) H 01/22/18 04:25 Plt Count 324 X10^3/uL (150.0-450.0) 01/22/18 04:25 Plt Count Comment Adequate (ADEQUATE) 01/21/18 04:59 MPV 8.4 fL (7.4-11.0) 01/22/18 04:25 Neut % (Auto) 75.5 % (42.0-75.0) H 01/22/18 04:25 Lymph % (Auto) 14.3 % (21.0-51.0) L 01/22/18 04:25 [place] % (Auto) 10.1 % (0.0-13.0) 01/22/18 04:25 Eos % (Auto) 0.0 % (0.9-2.9) L 01/22/18 04:25 Baso % (Auto) 0.1 % (0.2-1.0) L 01/22/18 04:25 Neut # (Auto) 9.0 x10^3/uL (2.2-4.8) H 01/22/18 04:25 Lymph # (Auto) 1.7 X10^3/uL (1.3-2.9) 01/22/18 04:25 [place] # (Auto) 1.2 x10^3/uL (0.3-0.8) H 01/22/18 04:25 Eos # (Auto) 0.0 x10^3/uL (0.0-0.2) 01/22/18 04:25 Baso # (Auto) 0.0 X10^3/uL (0.0-0.1) 01/22/18 04:25 Absolute Nucleated RBC 0.5 /100WBC 01/22/18 04:25 Plt Morphology Comment Normal (NORMAL) 01/21/18 04:59 RBC Morphology Abnormal (NORMAL) A 01/21/18 04:59 Hypochromasia Slight A 01/21/18 04:59 Anisocytosis 1+ A 01/21/18 04:59 Microcytosis 1+ A 01/21/18 04:59 Stomatocytes Present 01/19/18 03:44 INR Target Range - 01/19/18 03:44 INR 1.11 (0.8-1.3) 01/19/18 03:44 APTT 35.4 SECONDS (22.9-36.5) 01/19/18 03:44 PTT Comment - 01/19/18 03:44 Sodium 138 mmol/L (136-145) 01/22/18 04:25 Corrected Sodium TNP 01/22/18 04:25 Potassium 4.2 mmol/L (3.5-5.1) 01/22/18 15:00 Chloride 98 mmol/L (98-107) 01/22/18 04:25 Carbon Dioxide 31.3 mmol/L (21-32) 01/22/18 04:25 BUN 21 mg/dL (7-18) H 01/22/18 04:25 Creatinine 1.79 mg/dL (0.55-1.02) H 01/22/18 04:25 Est GFR (MDRD) Af Amer 37 (>60) L 01/22/18 04:25 Est GFR (MDRD) Non-Af 30 (>60) L 01/22/18 04:25 Glucose 104 mg/dL (65-99) H 01/22/18 04:25 POC Glucose (mg/dL) 148 mg/dL (65-99) H 01/20/18 20:46 Calcium 7.6 mg/dL (8.5-10.1) L 01/22/18 04:25 Corrected Calcium 9.2 mg/dL (8.5-10.1) 01/22/18 04:25 Magnesium 2.3 mg/dL (1.7-2.9) 01/21/18 04:59 Iron 182 ug/dL (50-175) H 01/22/18 04:25 TIBC 182 ug/dL (250-450) L 01/22/18 04:25 Transferrin 122 mg/dL (202-364) L 01/20/18 05:54 Ferritin 785 ng/mL (8-252) H 01/22/18 04:25 Total Bilirubin 0.50 mg/dL (0.2-1.0) 01/22/18 04:25 AST 138 Units/L (15-37) H 01/22/18 04:25 ALT 33 Units/L (12-78) 01/22/18 04:25 Alkaline Phosphatase 620 Units/L (46-116) H 01/22/18 04:25 Creatine Kinase 47 Units/L (26-192) 01/19/18 11:50 CK-MB (CK-2) < 1.0 ng/mL (0-4.0) 01/19/18 11:50 CK/CKMB % Calc 2.1 % (<4) 01/19/18 11:50 Troponin I < 0.02 ng/mL (0-1.5) 01/19/18 11:50 Total Protein 6.2 g/dL (6.4-8.2) L 01/22/18 04:25 Albumin 2.0 g/dL (3.4-5.0) L 01/22/18 04:25 Globulin 4.2 g/dL (2.5-4.5) 01/22/18 04:25 Albumin/Globulin Ratio 0.5 Ratio (1.1-2.1) L 01/22/18 04:25 Triglycerides 178 mg/dL (0-150) H 01/19/18 05:15 Cholesterol 80 mg/dL (0-200) 01/19/18 05:15 LDL Cholesterol, Calc 25 mg/dL (0-100) 01/19/18 05:15 HDL Cholesterol 19 mg/dL (40-60) L 01/19/18 05:15 Cholesterol/HDL Ratio 4.2 (0.0-5.0) 01/19/18 05:15 Vitamin B12 1083 pg/mL (193-986) H 01/20/18 05:54 Folate 7.9 ng/mL (>8.6) L 01/20/18 05:54 Free T4 0.74 ng/dL (0.76-1.46) L 01/22/18 04:25 TSH 3rd Generation 3.479 uIU/mL (0.358-3.74) 01/22/18 04:25 Stool Description 40 grs brown soft 01/21/18 14:45 Stl Occult Blood (IFOB) Positive (NEGATIVE) A 01/21/18 14:45 H. pylori IgG Antibody Negative (NEGATIVE) 01/19/18 03:44 Blood Type O POSITIVE 01/22/18 08:25 Antibody Screen Negative 01/22/18 08:25 Crossmatch See Detail 01/22/18 08:25 - Plan (1) SOB (shortness of breath) Status: Acute Plan: CONTINUE RESP THERAPY, IV ATBX, SUPPLEMENTAL O2,. CHF MANAGEMENT, BP AND LIPID CONTROL. REPEAT AM LABS AND CXR. CO N/V/D STOOL STUDIES, GASTROCCULT (2) COPD exacerbation Status: Acute (3) COPD (chronic obstructive pulmonary disease) Status: Acute Qualifiers: COPD type: COPD with acute exacerbation Qualified Code(s): J44.1 - Chronic obstructive pulmonary disease with (acute) exacerbation Plan: DUONEBS Q4H, SUPPLEMENTAL OXYGEN, SOLU-MEDROL 80MG IV 8H (4) CHF (congestive heart failure) Status: Chronic (5) GERD (gastroesophageal reflux disease) Status: Chronic (6) Degenerative joint disease (DJD) of hip Status: Chronic Qualifiers: Osteoarthritis type: unspecified Laterality: right Qualified Code(s): M16.11 - Unilateral primary osteoarthritis, right hip (7) DHARA (generalized anxiety disorder) Status: Chronic (8) DDD (degenerative disc disease), lumbosacral Status: Chronic (9) Essential hypertension Status: Chronic (10) Nausea & vomiting Status: Acute Plan: KUB, NAUSEA CONTROL. PPI GERD TREATMENT, ADVANCE DIET TOLERATED (11) Anemia Status: Acute Plan: TRANSFUSE PRBC
[2018-01-22] MEDS: ROBITUSSIN DM PO PRN (21:19)
[2018-01-22] MEDS: COLACE CAP 100 MG PO SCH (21:25)
[2018-01-23] MEDS: DUONEB 0.5 MG/3 MG NEB SCH ×6 (01:19→20:47)
[2018-01-23 05:19] LABS: BASOPHILS % (AUTO) 0.1 % (0.2-1.0); EOSINOPHILS % (AUTO) 0.3 % (0.9-2.9); HEMATOCRIT 29.4 % (36.0-47.0); HEMOGLOBIN 9.9 g/dL (12.0-16.0); LYMPHOCYTES # (AUTO) 1.3 X10^3/uL (1.3-2.9); LYMPHOCYTES % (AUTO) 11.4 % (21.0-51.0); MEAN CORPUSCULAR HGB CONC 33.7 g/dL (33.0-35.0); MEAN CORPUSCULAR VOLUME 86.3 fL (80.0-100.0); MEAN PLATELET VOLUME 8.4 fL (7.4-11.0); MONOCYTES # (AUTO) 0.9 x10^3/uL (0.3-0.8); MONOCYTES % (AUTO) 8.2 % (0.0-13.0); PLATELET COUNT 281 X10^3/uL (150.0-450.0); RED BLOOD COUNT 3.41 X10^6/uL (3.5-5.4); RED CELL DISTRIBUTION WIDTH 15.8 % (11.6-16.5); WHITE BLOOD COUNT 11.2 X10^3/uL (3.6-10.0)
[2018-01-23 05:38] LABS: ALANINE AMINOTRANSFERASE 26 Units/L (12-78); ALKALINE PHOSPHATASE 544 Units/L (46-116); ASPARTATE AMINO TRANSFERASE 99 Units/L (15-37); BLOOD UREA NITROGEN 19 mg/dL (7-18); CALCIUM 7.6 mg/dL (8.5-10.1); CHLORIDE 98 mmol/L (98-107); COR CA(FOR HYPOALB) 9.2 mg/dL (8.5-10.1); CREATININE 1.26 mg/dL (0.55-1.02); SODIUM 137 mmol/L (136-145); TOTAL PROTEIN 6.2 g/dL (6.4-8.2); eGFR NON BLACK RACES 45 (>60)
[2018-01-23] MEDS: NEURONTIN CAP 300 MG PO SCH ×3 (06:24→21:39)
[2018-01-23] MEDS: MILK OF MAGNESIA PO SCH ×3 (09:45→23:19)
[2018-01-23] MEDS: LASIX PO SCH ×2 (09:45→21:39)
[2018-01-23] MEDS: PROTONIX INJ 40 MG VIAL IVP SCH ×2 (09:46→21:40)
[2018-01-23] MEDS: LEVAQUIN PREMIX IV 250 MG 250 MG/50 ML BAG IV SCH (09:46)
[2018-01-23] MEDS: PHENERGAN INJ 25 MG IV PRN ×3 (09:47→22:45)
[2018-01-23] MEDS: MORPHINE SULFATE INJ 2 MG INJ IVP PRN ×3 (10:41→22:45)
--- NOTE | 2018-01-23 14:05 | RAD ---
History: Nausea and vomiting Study: KUB Comparison: January 21 Findings: The bowel gas pattern is unremarkable. There is decreased overall gas in bowel compared to prior exam. There is a surgical clip in the right quadrant. Impression: No acute disease Reported By:
--- NOTE | 2018-01-23 18:18 | PCM.PROG ---
Progress Note - Progress Note for Day of Date: 01/23/18 - Subjective Subjective: IS A 63 YEAR OLD PATIENT OF WHO PRESENTED TO THE EMERGENCY ROOM VIA EMS WITH COMPLAINTS OF XIPHOID CHEST PAIN, SHORTNESS OF BREATH, AND WHEEZING. PT CO N/V/D WHICH HAS IMPROVED SINCE ADMISSION. OCCULT STOOL POSITIVE WITH HGB IMPROVED THIS AM, S/P TRANSFUSION - Past Medical Family Social History Past Med/Fam/Surg Hx: No changes since H&P Allergies: Allergies ketorolac [From Toradol] Allergy (Verified 01/19/18 05:23) nalbuphine [From Nubain] Allergy (Verified 01/19/18 05:23) Penicillins Allergy (Verified 01/19/18 05:23) Sulfa (Sulfonamide Antibiotics) [SULFA] Allergy (Verified 01/19/18 05:23) BETA BLOCKERS Allergy (Uncoded 01/19/18 05:23) - Review of Systems ROS: No change since H&P - Vital Signs and I&O's Vital Signs: Temperature 98.3 F Pulse Rate [Left Brachial] 120 Pulse Rate [Right] 99 Pulse Rate 102 Respiratory Rate 22 Blood Pressure [Left Arm] 110/54 Blood Pressure [Right Arm] 101/58 Blood Pressure 107/52 O2 Sat by Pulse Oximetry 96 Intake and Output: Intake & Output 01/21/18 01/22/18 01/23/18 01/24/18 11:59 11:59 11:59 11:59 Intake Total 1038 / 1038 2480 / 2480 1280 / 1280 590 / 590 Balance 1038 / 1038 2480 / 2480 1280 / 1280 590 / 590 - Physical Exam Oriented: Normal Eyes: Normal Ear: Normal Nose: Normal Throat: Normal Respiratory: Diminished Cardiovascular: Edema (LOWER EXTREMITY NON PITTING EDEMA ) : Normal Auscultation: Bowel Sounds: Normal Tenderness: Epigastric, Mild Skin: Normal Musculoskeletal: Back:Thoracic, Back:Lumbar, Motor Deficit, Sensory Deficit Psychiatric: Normal Mood Description: Calm Affect: Normal Speech Pattern: Clear, Appropriate - Laboratory and Diagnostics Result Diagrams: 01/23/18 04:28 01/23/18 04:28 Labs: Laboratory WBC 11.2 X10^3/uL (3.6-10.0) H 01/23/18 04:28 RBC 3.41 X10^6/uL (3.5-5.4) L 01/23/18 04:28 Hgb 9.9 g/dL (12.0-16.0) L D 01/23/18 04:28 Hct 29.4 % (36.0-47.0) L 01/23/18 04:28 MCV 86.3 fL (80.0-100.0) 01/23/18 04:28 MCH 29.0 pg (27.0-34.0) 01/23/18 04:28 MCHC 33.7 g/dL (33.0-35.0) 01/23/18 04:28 RDW 15.8 % (11.6-16.5) 01/23/18 04:28 Plt Count 281 X10^3/uL (150.0-450.0) 01/23/18 04:28 Plt Count Comment Adequate (ADEQUATE) 01/21/18 04:59 MPV 8.4 fL (7.4-11.0) 01/23/18 04:28 Neut % (Auto) 80.0 % (42.0-75.0) H 01/23/18 04:28 Lymph % (Auto) 11.4 % (21.0-51.0) L 01/23/18 04:28 [place] % (Auto) 8.2 % (0.0-13.0) 01/23/18 04:28 Eos % (Auto) 0.3 % (0.9-2.9) L 01/23/18 04:28 Baso % (Auto) 0.1 % (0.2-1.0) L 01/23/18 04:28 Neut # (Auto) 9.0 x10^3/uL (2.2-4.8) H 01/23/18 04:28 Lymph # (Auto) 1.3 X10^3/uL (1.3-2.9) 01/23/18 04:28 [place] # (Auto) 0.9 x10^3/uL (0.3-0.8) H 01/23/18 04:28 Eos # (Auto) 0.0 x10^3/uL (0.0-0.2) 01/23/18 04:28 Baso # (Auto) 0.0 X10^3/uL (0.0-0.1) 01/23/18 04:28 Absolute Nucleated RBC 0.3 /100WBC 01/23/18 04:28 Plt Morphology Comment Normal (NORMAL) 01/21/18 04:59 RBC Morphology Abnormal (NORMAL) A 01/21/18 04:59 Hypochromasia Slight A 01/21/18 04:59 Anisocytosis 1+ A 01/21/18 04:59 Microcytosis 1+ A 01/21/18 04:59 Stomatocytes Present 01/19/18 03:44 INR Target Range - 01/19/18 03:44 INR 1.11 (0.8-1.3) 01/19/18 03:44 APTT 35.4 SECONDS (22.9-36.5) 01/19/18 03:44 PTT Comment - 01/19/18 03:44 Sodium 137 mmol/L (136-145) 01/23/18 04:28 Corrected Sodium TNP 01/23/18 04:28 Potassium 3.5 mmol/L (3.5-5.1) 01/23/18 04:28 Chloride 98 mmol/L (98-107) 01/23/18 04:28 Carbon Dioxide 34.0 mmol/L (21-32) H 01/23/18 04:28 BUN 19 mg/dL (7-18) H 01/23/18 04:28 Creatinine 1.26 mg/dL (0.55-1.02) H 01/23/18 04:28 Est GFR (MDRD) Af Amer 55 (>60) L 01/23/18 04:28 Est GFR (MDRD) Non-Af 45 (>60) L 01/23/18 04:28 Glucose 77 mg/dL (65-99) 01/23/18 04:28 POC Glucose (mg/dL) 148 mg/dL (65-99) H 01/20/18 20:46 Calcium 7.6 mg/dL (8.5-10.1) L 01/23/18 04:28 Corrected Calcium 9.2 mg/dL (8.5-10.1) 01/23/18 04:28 Magnesium 2.3 mg/dL (1.7-2.9) 01/21/18 04:59 Iron 182 ug/dL (50-175) H 01/22/18 04:25 TIBC 182 ug/dL (250-450) L 01/22/18 04:25 Transferrin 122 mg/dL (202-364) L 01/20/18 05:54 Ferritin 785 ng/mL (8-252) H 01/22/18 04:25 Total Bilirubin 0.80 mg/dL (0.2-1.0) 01/23/18 04:28 AST 99 Units/L (15-37) H 01/23/18 04:28 ALT 26 Units/L (12-78) 01/23/18 04:28 Alkaline Phosphatase 544 Units/L (46-116) H 01/23/18 04:28 Creatine Kinase 47 Units/L (26-192) 01/19/18 11:50 CK-MB (CK-2) < 1.0 ng/mL (0-4.0) 01/19/18 11:50 CK/CKMB % Calc 2.1 % (<4) 01/19/18 11:50 Troponin I < 0.02 ng/mL (0-1.5) 01/19/18 11:50 Total Protein 6.2 g/dL (6.4-8.2) L 01/23/18 04:28 Albumin 2.0 g/dL (3.4-5.0) L 01/23/18 04:28 Globulin 4.2 g/dL (2.5-4.5) 01/23/18 04:28 Albumin/Globulin Ratio 0.5 Ratio (1.1-2.1) L 01/23/18 04:28 Triglycerides 178 mg/dL (0-150) H 01/19/18 05:15 Cholesterol 80 mg/dL (0-200) 01/19/18 05:15 LDL Cholesterol, Calc 25 mg/dL (0-100) 01/19/18 05:15 HDL Cholesterol 19 mg/dL (40-60) L 01/19/18 05:15 Cholesterol/HDL Ratio 4.2 (0.0-5.0) 01/19/18 05:15 Vitamin B12 1083 pg/mL (193-986) H 01/20/18 05:54 Folate 7.9 ng/mL (>8.6) L 01/20/18 05:54 Free T4 0.74 ng/dL (0.76-1.46) L 01/22/18 04:25 TSH 3rd Generation 3.479 uIU/mL (0.358-3.74) 01/22/18 04:25 Stool Description 40 grs brown soft 01/21/18 14:45 Stl Occult Blood (IFOB) Positive (NEGATIVE) A 01/21/18 14:45 H. pylori IgG Antibody Negative (NEGATIVE) 01/19/18 03:44 Blood Type O POSITIVE 01/22/18 08:25 Antibody Screen Negative 01/22/18 08:25 Crossmatch See Detail 01/22/18 08:25 - Plan (1) SOB (shortness of breath) Status: Acute Plan: CONTINUE RESP THERAPY, IV ATBX, SUPPLEMENTAL O2,. CHF MANAGEMENT, BP AND LIPID CONTROL. REPEAT AM LABS AND CXR. CO N/V/D STOOL STUDIES COLLECTED, GASTROCCULT POSITIVE (2) COPD exacerbation Status: Acute (3) COPD (chronic obstructive pulmonary disease) Status: Acute Qualifiers: COPD type: COPD with acute exacerbation Qualified Code(s): J44.1 - Chronic obstructive pulmonary disease with (acute) exacerbation Plan: DUONEBS Q4H, SUPPLEMENTAL OXYGEN (4) CHF (congestive heart failure) Status: Chronic (5) GERD (gastroesophageal reflux disease) Status: Chronic (6) Degenerative joint disease (DJD) of hip Status: Chronic Qualifiers: Osteoarthritis type: unspecified Laterality: right Qualified Code(s): M16.11 - Unilateral primary osteoarthritis, right hip (7) DHARA (generalized anxiety disorder) Status: Chronic (8) DDD (degenerative disc disease), lumbosacral Status: Chronic (9) Essential hypertension Status: Chronic (10) Nausea & vomiting Status: Acute Plan: KUB, NAUSEA CONTROL. PPI GERD TREATMENT, ADVANCE DIET TOLERATED (11) Anemia Status: Acute Plan: S/P TRANSFUSION
[2018-01-23] MEDS: COLACE CAP 100 MG PO SCH (21:39)
[2018-01-23] MEDS: ROBITUSSIN DM PO PRN (21:39)
[2018-01-23] MEDS: XANAX PO PRN (21:39)
[2018-01-23] MEDS: BUTT CREAM (COMPOUND) TOP PRN (22:45)
[2018-01-24] MEDS: DUONEB 0.5 MG/3 MG NEB SCH ×6 (01:40→20:59)
[2018-01-24] MEDS: MORPHINE SULFATE INJ 2 MG INJ IVP PRN ×4 (04:56→20:43)
[2018-01-24] MEDS: PHENERGAN INJ 25 MG IV PRN ×3 (05:00→18:02)
[2018-01-24] MEDS: NEURONTIN CAP 300 MG PO SCH ×3 (05:02→21:24)
[2018-01-24 05:48] LABS: BASOPHILS % (AUTO) 0.4 % (0.2-1.0); EOSINOPHILS # (AUTO) 0.1 x10^3/uL (0.0-0.2); EOSINOPHILS % (AUTO) 0.9 % (0.9-2.9); HEMATOCRIT 30.1 % (36.0-47.0); HEMOGLOBIN 10.3 g/dL (12.0-16.0); LYMPHOCYTES # (AUTO) 1.8 X10^3/uL (1.3-2.9); LYMPHOCYTES % (AUTO) 13.5 % (21.0-51.0); MEAN CORPUSCULAR HEMOGLOBIN 29.3 pg (27.0-34.0); MEAN CORPUSCULAR HGB CONC 34.3 g/dL (33.0-35.0); MEAN CORPUSCULAR VOLUME 85.6 fL (80.0-100.0); MONOCYTES % (AUTO) 7.6 % (0.0-13.0); NEUTROPHILS # (AUTO) 10.6 x10^3/uL (2.2-4.8); NEUTROPHILS % (AUTO) 77.6 % (42.0-75.0); PLATELET COUNT 270 X10^3/uL (150.0-450.0); RED BLOOD COUNT 3.52 X10^6/uL (3.5-5.4); RED CELL DISTRIBUTION WIDTH 15.9 % (11.6-16.5); WHITE BLOOD COUNT 13.6 X10^3/uL (3.6-10.0)
[2018-01-24 06:05] LABS: ALANINE AMINOTRANSFERASE 21 Units/L (12-78); ALKALINE PHOSPHATASE 513 Units/L (46-116); ASPARTATE AMINO TRANSFERASE 68 Units/L (15-37); BLOOD UREA NITROGEN 16 mg/dL (7-18); CARBON DIOXIDE 37.1 mmol/L (21-32); CHLORIDE 97 mmol/L (98-107); COR CA(FOR HYPOALB) 9.6 mg/dL (8.5-10.1); SODIUM 137 mmol/L (136-145); TOTAL PROTEIN 6.5 g/dL (6.4-8.2); eGFR NON BLACK RACES 53 (>60)
[2018-01-24] MEDS: MILK OF MAGNESIA PO SCH ×2 (08:22→21:24)
[2018-01-24] MEDS: PROTONIX INJ 40 MG VIAL IVP SCH ×2 (08:25→21:23)
[2018-01-24] MEDS: LEVAQUIN PREMIX IV 250 MG 250 MG/50 ML BAG IV SCH (08:25)
[2018-01-24] MEDS: LASIX PO SCH ×2 (08:25→21:23)
[2018-01-24] MEDS: ZOFRAN INJ 4 MG VIAL IVP PRN ×3 (09:16→22:21)
[2018-01-24] MEDS: CARAFATE PO SCH ×3 (11:43→21:23)
[2018-01-24] MEDS: REGLAN TAB 10 MG PO SCH ×4 (11:43→21:24)
[2018-01-24] MEDS: COLACE CAP 100 MG PO SCH (21:23)
[2018-01-24] MEDS: BUTT CREAM (COMPOUND) TOP PRN (21:25)
[2018-01-25] MEDS: DUONEB 0.5 MG/3 MG NEB SCH ×7 (00:55→20:06)
[2018-01-25] MEDS: MORPHINE SULFATE INJ 2 MG INJ IVP PRN ×5 (03:42→21:08)
[2018-01-25] MEDS: ZOFRAN INJ 4 MG VIAL IVP PRN ×3 (04:13→21:08)
[2018-01-25] MEDS: REGLAN TAB 10 MG PO SCH ×4 (05:51→21:07)
[2018-01-25] MEDS: NEURONTIN CAP 300 MG PO SCH ×3 (05:51→21:07)
[2018-01-25] MEDS: CARAFATE PO SCH ×4 (05:51→21:07)
[2018-01-25 06:13] LABS: BASOPHILS # (AUTO) 0.1 X10^3/uL (0.0-0.1); BASOPHILS % (AUTO) 0.6 % (0.2-1.0); EOSINOPHILS # (AUTO) 0.2 x10^3/uL (0.0-0.2); EOSINOPHILS % (AUTO) 1.5 % (0.9-2.9); HEMATOCRIT 29.9 % (36.0-47.0); HEMOGLOBIN 9.9 g/dL (12.0-16.0); LYMPHOCYTES % (AUTO) 16.2 % (21.0-51.0); MEAN CORPUSCULAR HEMOGLOBIN 28.9 pg (27.0-34.0); MEAN CORPUSCULAR HGB CONC 33.1 g/dL (33.0-35.0); MEAN CORPUSCULAR VOLUME 87.2 fL (80.0-100.0); MEAN PLATELET VOLUME 8.4 fL (7.4-11.0); MONOCYTES # (AUTO) 1.2 x10^3/uL (0.3-0.8); MONOCYTES % (AUTO) 9.4 % (0.0-13.0); NEUTROPHILS # (AUTO) 8.9 x10^3/uL (2.2-4.8); NEUTROPHILS % (AUTO) 72.3 % (42.0-75.0); PLATELET COUNT 204 X10^3/uL (150.0-450.0); RED BLOOD COUNT 3.43 X10^6/uL (3.5-5.4); RED CELL DISTRIBUTION WIDTH 15.9 % (11.6-16.5); WHITE BLOOD COUNT 12.3 X10^3/uL (3.6-10.0)
[2018-01-25 06:43] LABS: ALANINE AMINOTRANSFERASE 16 Units/L (12-78); ALBUMIN 1.9 g/dL (3.4-5.0); ALKALINE PHOSPHATASE 440 Units/L (46-116); ASPARTATE AMINO TRANSFERASE 49 Units/L (15-37); BLOOD UREA NITROGEN 14 mg/dL (7-18); CALCIUM 7.9 mg/dL (8.5-10.1); CARBON DIOXIDE 35.5 mmol/L (21-32); CHLORIDE 96 mmol/L (98-107); COR CA(FOR HYPOALB) 9.6 mg/dL (8.5-10.1); CREATININE 1.17 mg/dL (0.55-1.02); SODIUM 138 mmol/L (136-145); TOTAL PROTEIN 6.6 g/dL (6.4-8.2); eGFR NON BLACK RACES 49 (>60)
[2018-01-25] MEDS: MAGNESIUM SULFATE 1 GRAM/100 mL PREMIX 1 GM/100 ML BAG IV PRN ×6 (07:44→17:07)
[2018-01-25] MEDS: PHENERGAN INJ 25 MG IV PRN ×3 (07:44→23:19)
[2018-01-25] MEDS: PROTONIX INJ 40 MG VIAL IVP SCH ×2 (08:59→21:07)
[2018-01-25] MEDS: XANAX PO PRN (09:00)
[2018-01-25] MEDS: LASIX PO SCH ×2 (09:00→21:07)
[2018-01-25] MEDS: MILK OF MAGNESIA PO SCH ×2 (09:01→21:07)
[2018-01-25] MEDS: LEVAQUIN PREMIX IV 250 MG 250 MG/50 ML BAG IV SCH (09:04)
[2018-01-25] MEDS ORDERED: NS 100 ML IV 100 ML IV ONE (12:11)
--- NOTE | 2018-01-25 15:44 | CT ---
History: Abdominal pain. Concern for acute abnormality. Exam: Non-contrast CT examination of the abdomen & pelvis. Technique: Multiple CT images of the abdomen and pelvis were obtained from the lung bases to the pubi c symphysis without the IV administration of radiopaque contrast. Findings: There is bibasilar centrilobular emphysema. Left basilar airspace disease could reflect pneumonia or atelectasis. Right basilar atelectasis is also appreciated. The heart is mildly enlarged without a pe ricardial effusion. There is scattered coronary atherosclerosis. The gallbladder is surgically absent . The liver is enlarged and diffusely fatty in appearance. These findings can be seen with chronic he patitis. Please correlate with LFTs/hepatitis panel. The spleen, stomach, adrenal glands, and kidneys are unremarkable, other than a simple left-sided renal cyst. There is abnormal soft tissue thickenin g and cystic changes seen throughout the body and tail of the pancreas which is edematous. These find ings can be seen with pseudocyst formation in the setting of acute on chronic pancreatitis versus is a pancreatic cystic lesion and correlation with pancreatic CT imaging with IV contrast will be needed at some point to exclude pseudoaneurysm formation, enhancing cystic pancreatic neoplasm, or early or developing pseudocyst formation. Please correlate with amylase and lipase values as well. There is n o evidence for high-grade bowel obstruction or acute mesenteric inflammatory stranding. There is scat tered aortic and iliac atherosclerosis. The bladder is unremarkable. No other pelvic abnormalities ar e observed. There is diffuse thoracolumbar spondylosis and degenerative scoliosis without evidence fo r acute fracture or destructive lytic bony lesion Impression: Abnormal soft tissue thickening and cystic changes seen throughout the body and tail of the pancreas (which is also edematous). These findings can be seen with pseudocyst formation in the setting of acu te on chronic pancreatitis versus a pancreatic cystic neoplasm and correlation with pancreatic CT madeline ging with IV contrast will be needed at some point to exclude pseudoaneurysms, enhancing cystic pancr eatic neoplasm, or early or developing pseudocyst formation. Please correlate with amylase and lipase values as well. Left basilar airspace disease could reflect pneumonia or atelectasis. Right basilar atelectasis is al so appreciated. The heart is mildly enlarged without a pericardial effusion. The liver is enlarged and diffusely size markedly fatty in appearance. These CT findings can be seen with chronic hepatitis. Please correlate with LFTs/hepatitis panel. Reported By:
[2018-01-25 16:16] LABS: AMYLASE 40 Units/L (25-115); LIPASE 109 Units/L (73-393)
[2018-01-25] MEDS ORDERED: NS 250 ML IV 250 ML IV ONE (17:50)
[2018-01-25] MEDS: NS 250 ML IV 250 ML IV SCH (18:06)
[2018-01-25] MEDS: POTASSIUM CHL 40 MEQ/NS 0.45% 500 ML IV PRN (18:35)
[2018-01-25] MEDS: COLACE CAP 100 MG PO SCH (21:07)
[2018-01-26] MEDS: DUONEB 0.5 MG/3 MG NEB SCH ×6 (00:28→21:55)
[2018-01-26] MEDS: NEURONTIN CAP 300 MG PO SCH ×3 (06:08→22:03)
[2018-01-26] MEDS: CARAFATE PO SCH ×4 (06:09→20:52)
[2018-01-26] MEDS: REGLAN TAB 10 MG PO SCH ×4 (06:09→20:53)
[2018-01-26 06:24] LABS: BASOPHILS # (AUTO) 0.1 X10^3/uL (0.0-0.1); BASOPHILS % (AUTO) 0.7 % (0.2-1.0); EOSINOPHILS # (AUTO) 0.2 x10^3/uL (0.0-0.2); EOSINOPHILS % (AUTO) 2.3 % (0.9-2.9); HEMOGLOBIN 9.2 g/dL (12.0-16.0); LYMPHOCYTES # (AUTO) 1.4 X10^3/uL (1.3-2.9); LYMPHOCYTES % (AUTO) 14.8 % (21.0-51.0); MEAN CORPUSCULAR HEMOGLOBIN 29.4 pg (27.0-34.0); MEAN CORPUSCULAR HGB CONC 34.1 g/dL (33.0-35.0); MEAN CORPUSCULAR VOLUME 86.1 fL (80.0-100.0); MEAN PLATELET VOLUME 8.9 fL (7.4-11.0); MONOCYTES % (AUTO) 10.6 % (0.0-13.0); NEUTROPHILS # (AUTO) 6.6 x10^3/uL (2.2-4.8); NEUTROPHILS % (AUTO) 71.6 % (42.0-75.0); PLATELET COUNT 234 X10^3/uL (150.0-450.0); RED BLOOD COUNT 3.13 X10^6/uL (3.5-5.4); RED CELL DISTRIBUTION WIDTH 15.8 % (11.6-16.5); WHITE BLOOD COUNT 9.2 X10^3/uL (3.6-10.0)
[2018-01-26 06:27] LABS: BLOOD UREA NITROGEN 9 mg/dL (7-18); CALCIUM 8.1 mg/dL (8.5-10.1); CARBON DIOXIDE 35.7 mmol/L (21-32); CHLORIDE 93 mmol/L (98-107); SODIUM 134 mmol/L (136-145); eGFR NON BLACK RACES 53 (>60)
[2018-01-26 07:04] LABS: AMYLASE 48 Units/L (25-115)
[2018-01-26 07:05] LABS: LIPASE 162 Units/L (73-393)
[2018-01-26] MEDS: NS 250 ML IV 250 ML IV SCH ×2 (07:08→20:52)
[2018-01-26] MEDS: LEVAQUIN PREMIX IV 250 MG 250 MG/50 ML BAG IV SCH (08:32)
[2018-01-26] MEDS: PROTONIX INJ 40 MG VIAL IVP SCH ×2 (08:32→20:52)
[2018-01-26] MEDS: LASIX PO SCH ×2 (08:35→20:52)
[2018-01-26] MEDS: ROBITUSSIN DM PO PRN ×2 (08:35→20:54)
[2018-01-26] MEDS: XANAX PO PRN ×2 (08:35→20:53)
[2018-01-26] MEDS: MILK OF MAGNESIA PO SCH ×2 (08:36→20:52)
[2018-01-26] MEDS: MORPHINE SULFATE INJ 2 MG INJ IVP PRN ×3 (10:07→18:12)
[2018-01-26] MEDS: ZOFRAN INJ 4 MG VIAL IVP PRN (18:13)
[2018-01-26] MEDS: COLACE CAP 100 MG PO SCH (20:52)
[2018-01-26] MEDS: PHENERGAN INJ 25 MG IV PRN (20:53)
[2018-01-26] MEDS: BUTT CREAM (COMPOUND) TOP PRN (20:54)
[2018-01-27] MEDS: DUONEB 0.5 MG/3 MG NEB SCH ×6 (01:40→21:45)
[2018-01-27] MEDS: CARAFATE PO SCH ×4 (05:30→20:52)
[2018-01-27 05:48] LABS: BLOOD UREA NITROGEN 9 mg/dL (7-18); CALCIUM 8.3 mg/dL (8.5-10.1); CARBON DIOXIDE 33.2 mmol/L (21-32); CHLORIDE 94 mmol/L (98-107); CREATININE 1.21 mg/dL (0.55-1.02); SODIUM 134 mmol/L (136-145); eGFR NON BLACK RACES 47 (>60)
[2018-01-27 06:19] LABS: BASOPHILS # (AUTO) 0.1 X10^3/uL (0.0-0.1); BASOPHILS % (AUTO) 0.9 % (0.2-1.0); EOSINOPHILS # (AUTO) 0.3 x10^3/uL (0.0-0.2); EOSINOPHILS % (AUTO) 3.3 % (0.9-2.9); HEMATOCRIT 24.9 % (36.0-47.0); HEMOGLOBIN 8.6 g/dL (12.0-16.0); LYMPHOCYTES # (AUTO) 1.2 X10^3/uL (1.3-2.9); LYMPHOCYTES % (AUTO) 15.6 % (21.0-51.0); MEAN CORPUSCULAR HEMOGLOBIN 29.7 pg (27.0-34.0); MEAN CORPUSCULAR HGB CONC 34.4 g/dL (33.0-35.0); MEAN CORPUSCULAR VOLUME 86.4 fL (80.0-100.0); MEAN PLATELET VOLUME 9.5 fL (7.4-11.0); MONOCYTES # (AUTO) 1.1 x10^3/uL (0.3-0.8); MONOCYTES % (AUTO) 14.8 % (0.0-13.0); NEUTROPHILS % (AUTO) 65.4 % (42.0-75.0); PLATELET COUNT 216 X10^3/uL (150.0-450.0); RED BLOOD COUNT 2.88 X10^6/uL (3.5-5.4); RED CELL DISTRIBUTION WIDTH 15.9 % (11.6-16.5); WHITE BLOOD COUNT 7.6 X10^3/uL (3.6-10.0)
[2018-01-27] MEDS: POTASSIUM CHL 40 MEQ/NS 0.45% 500 ML IV PRN (06:27)
[2018-01-27] MEDS: REGLAN TAB 10 MG PO SCH ×4 (06:28→20:54)
[2018-01-27] MEDS: NEURONTIN CAP 300 MG PO SCH ×3 (06:28→22:00)
[2018-01-27] MEDS: ROBITUSSIN DM PO PRN (09:13)
[2018-01-27] MEDS: MILK OF MAGNESIA PO SCH ×2 (09:13→20:52)
[2018-01-27] MEDS: LEVAQUIN PREMIX IV 250 MG 250 MG/50 ML BAG IV SCH (09:13)
[2018-01-27] MEDS: PROTONIX INJ 40 MG VIAL IVP SCH ×2 (09:13→20:51)
[2018-01-27] MEDS: LASIX PO SCH ×4 (09:14→21:00)
[2018-01-27] MEDS: XANAX PO PRN (09:14)
[2018-01-27] MEDS: NS 250 ML IV 250 ML IV SCH ×2 (09:14→22:00)
[2018-01-27] MEDS: MORPHINE SULFATE INJ 2 MG INJ IVP PRN ×3 (09:26→20:51)
[2018-01-27] MEDS: BUTT CREAM (COMPOUND) TOP PRN (09:35)
[2018-01-27] MEDS: MAGNESIUM SULFATE 1 GRAM/100 mL PREMIX 1 GM/100 ML BAG IV PRN (09:35)
[2018-01-27 11:30] LABS: CKMB % 9.1 % (<4); CREATINE KINASE 11 Units/L (26-192); CREATINE KINASE MB < 1.0 ng/mL (0-4.0); TROPONIN I < 0.02 ng/mL (0-1.5)
[2018-01-27] MEDS: PHENERGAN INJ 25 MG IV PRN (11:38)
--- NOTE | 2018-01-27 13:24 | PCM.PROG ---
Progress Note - Progress Note for Day of Date: 01/27/18 - Subjective Subjective: IS A 63 YEAR OLD PATIENT OF WHO PRESENTED TO THE EMERGENCY ROOM VIA EMS WITH COMPLAINTS OF XIPHOID CHEST PAIN, SHORTNESS OF BREATH, AND WHEEZING WITH CHRONIC COPD. PT CO N/V/D WHICH HAD IMPROVED, AFTER ADVANCING DIET SYMPTOMS RETURNED. PT CO NAUSEA, ABDOMINAL DISTENTION. PT HAS ELEVATED LFT'S AND ABNORMAL AND PACREATIC FINDINGS ON CT SCAN. REPEAT OCCULT STOOL WAS NEGATIVE, WITH HGB IMPROVED THIS AM, S/P TRANSFUSION - Past Medical Family Social History Past Med/Fam/Surg Hx: No changes since H&P Allergies: Allergies ketorolac [From Toradol] Allergy (Verified 01/19/18 05:23) nalbuphine [From Nubain] Allergy (Verified 01/19/18 05:23) Penicillins Allergy (Verified 01/19/18 05:23) Sulfa (Sulfonamide Antibiotics) [SULFA] Allergy (Verified 01/19/18 05:23) BETA BLOCKERS Allergy (Uncoded 01/19/18 05:23) - Review of Systems ROS: No change since H&P - Vital Signs and I&O's Vital Signs: Temperature 97.8 F Pulse Rate [Right Brachial] 111 Pulse Rate [Left Brachial] 110 Pulse Rate [Right] 112 Pulse Rate 115 Respiratory Rate 21 Blood Pressure [Left Arm] 123/59 Blood Pressure [Right Arm] 130/74 Blood Pressure 107/52 O2 Sat by Pulse Oximetry 93 Intake and Output: Intake & Output 01/25/18 01/26/18 01/27/18 01/28/18 11:59 11:59 11:59 11:59 Intake Total 1180 / 1180 2735 / 2735 603 / 603 Balance 1180 / 1180 2735 / 2735 603 / 603 - Physical Exam Oriented: Normal Eyes: Normal Ear: Normal Nose: Normal Throat: Normal Respiratory: Diminished Cardiovascular: Edema (LOWER EXTREMITY NON PITTING EDEMA ) : Normal Auscultation: Bowel Sounds: Normal Tenderness: RUQ, LUQ, Epigastric, Mild, Other (MODERATE DIFFUSE DISTENTION) Skin: Normal Musculoskeletal: Back:Thoracic, Back:Lumbar, Motor Deficit, Sensory Deficit Psychiatric: Normal Mood Description: Calm Affect: Normal Speech Pattern: Clear, Appropriate - Laboratory and Diagnostics Result Diagrams: 01/27/18 04:55 06/18/18 04:55 Labs: Laboratory WBC 7.6 X10^3/uL (3.6-10.0) 01/27/18 04:55 RBC 2.88 X10^6/uL (3.5-5.4) L 01/27/18 04:55 Hgb 8.6 g/dL (12.0-16.0) L 01/27/18 04:55 Hct 24.9 % (36.0-47.0) L 01/27/18 04:55 MCV 86.4 fL (80.0-100.0) 01/27/18 04:55 MCH 29.7 pg (27.0-34.0) 01/27/18 04:55 MCHC 34.4 g/dL (33.0-35.0) 01/27/18 04:55 RDW 15.9 % (11.6-16.5) 01/27/18 04:55 Plt Count 216 X10^3/uL (150.0-450.0) 01/27/18 04:55 Plt Count Comment Adequate (ADEQUATE) 01/21/18 04:59 MPV 9.5 fL (7.4-11.0) 01/27/18 04:55 Neut % (Auto) 65.4 % (42.0-75.0) 01/27/18 04:55 Lymph % (Auto) 15.6 % (21.0-51.0) L 01/27/18 04:55 [place] % (Auto) 14.8 % (0.0-13.0) H 01/27/18 04:55 Eos % (Auto) 3.3 % (0.9-2.9) H 01/27/18 04:55 Baso % (Auto) 0.9 % (0.2-1.0) 01/27/18 04:55 Neut # (Auto) 5.0 x10^3/uL (2.2-4.8) H 01/27/18 04:55 Lymph # (Auto) 1.2 X10^3/uL (1.3-2.9) L 01/27/18 04:55 [place] # (Auto) 1.1 x10^3/uL (0.3-0.8) H 01/27/18 04:55 Eos # (Auto) 0.3 x10^3/uL (0.0-0.2) H 01/27/18 04:55 Baso # (Auto) 0.1 X10^3/uL (0.0-0.1) 01/27/18 04:55 Absolute Nucleated RBC 0.1 /100WBC 01/27/18 04:55 Plt Morphology Comment Normal (NORMAL) 01/21/18 04:59 RBC Morphology Abnormal (NORMAL) A 01/21/18 04:59 Hypochromasia Slight A 01/21/18 04:59 Anisocytosis 1+ A 01/21/18 04:59 Microcytosis 1+ A 01/21/18 04:59 Stomatocytes Present 01/19/18 03:44 INR Target Range - 01/19/18 03:44 INR 1.11 (0.8-1.3) 01/19/18 03:44 APTT 35.4 SECONDS (22.9-36.5) 01/19/18 03:44 PTT Comment - 01/19/18 03:44 Sodium 134 mmol/L (136-145) L 01/27/18 04:55 Corrected Sodium TNP 01/27/18 04:55 Potassium 3.3 mmol/L (3.5-5.1) L 01/27/18 04:55 Chloride 94 mmol/L (98-107) L 01/27/18 04:55 Carbon Dioxide 33.2 mmol/L (21-32) H 01/27/18 04:55 BUN 9 mg/dL (7-18) 01/27/18 04:55 Creatinine 1.21 mg/dL (0.55-1.02) H 01/27/18 04:55 Est GFR (MDRD) Af Amer 57 (>60) L 01/27/18 04:55 Est GFR (MDRD) Non-Af 47 (>60) L 01/27/18 04:55 Glucose 81 mg/dL (65-99) 01/27/18 04:55 POC Glucose (mg/dL) 148 mg/dL (65-99) H 01/20/18 20:46 Calcium 8.3 mg/dL (8.5-10.1) L 01/27/18 04:55 Corrected Calcium 9.6 mg/dL (8.5-10.1) 01/25/18 05:02 Magnesium 1.3 mg/dL (1.7-2.9) L 01/27/18 06:55 Iron 182 ug/dL (50-175) H 01/22/18 04:25 TIBC 182 ug/dL (250-450) L 01/22/18 04:25 Transferrin 122 mg/dL (202-364) L 01/20/18 05:54 Ferritin 785 ng/mL (8-252) H 01/22/18 04:25 Total Bilirubin 1.00 mg/dL (0.2-1.0) 01/25/18 05:02 AST 49 Units/L (15-37) H 01/25/18 05:02 ALT 16 Units/L (12-78) 01/25/18 05:02 Alkaline Phosphatase 440 Units/L (46-116) H 01/25/18 05:02 Creatine Kinase 11 Units/L (26-192) L 01/27/18 10:52 CK-MB (CK-2) < 1.0 ng/mL (0-4.0) 01/27/18 10:52 CK/CKMB % Calc 9.1 % (<4) 01/27/18 10:52 Troponin I < 0.02 ng/mL (0-1.5) 01/27/18 10:52 Total Protein 6.6 g/dL (6.4-8.2) 01/25/18 05:02 Albumin 1.9 g/dL (3.4-5.0) L 01/25/18 05:02 Globulin 4.7 g/dL (2.5-4.5) H 01/25/18 05:02 Albumin/Globulin Ratio 0.4 Ratio (1.1-2.1) L 01/25/18 05:02 Triglycerides 178 mg/dL (0-150) H 01/19/18 05:15 Cholesterol 80 mg/dL (0-200) 01/19/18 05:15 LDL Cholesterol, Calc 25 mg/dL (0-100) 01/19/18 05:15 HDL Cholesterol 19 mg/dL (40-60) L 01/19/18 05:15 Cholesterol/HDL Ratio 4.2 (0.0-5.0) 01/19/18 05:15 Amylase 48 Units/L (25-115) 01/26/18 04:30 Lipase 162 Units/L (73-393) 01/26/18 04:30 Vitamin B12 1083 pg/mL (193-986) H 01/20/18 05:54 Folate 7.9 ng/mL (>8.6) L 01/20/18 05:54 Free T4 0.74 ng/dL (0.76-1.46) L 01/22/18 04:25 TSH 3rd Generation 3.479 uIU/mL (0.358-3.74) 01/22/18 04:25 Stool Description 10g unformed brown 01/25/18 20:38 Stl Occult Blood (IFOB) Negative (NEGATIVE) 01/25/18 20:38 H. pylori IgG Antibody Negative (NEGATIVE) 01/19/18 03:44 Blood Type O POSITIVE 01/22/18 08:25 Antibody Screen Negative 01/22/18 08:25 Crossmatch See Detail 01/22/18 08:25 - Plan (1) SOB (shortness of breath) Status: Acute Plan: CONTINUE RESP THERAPY, IV ATBX, SUPPLEMENTAL O2,. CHF MANAGEMENT, BP AND LIPID CONTROL. REPEAT AM LABS AND CXR. CO N/V/D STOOL STUDIES COLLECTED, GASTROCCULT POSITIVE (2) COPD exacerbation Status: Acute (3) COPD (chronic obstructive pulmonary disease) Status: Acute Qualifiers: COPD type: COPD with acute exacerbation Qualified Code(s): J44.1 - Chronic obstructive pulmonary disease with (acute) exacerbation Plan: DUONEBS Q4H, SUPPLEMENTAL OXYGEN (4) CHF (congestive heart failure) Status: Chronic (5) GERD (gastroesophageal reflux disease) Status: Chronic (6) Degenerative joint disease (DJD) of hip Status: Chronic Qualifiers: Osteoarthritis type: unspecified Laterality: right Qualified Code(s): M16.11 - Unilateral primary osteoarthritis, right hip (7) DHARA (generalized anxiety disorder) Status: Chronic (8) DDD (degenerative disc disease), lumbosacral Status: Chronic (9) Essential hypertension Status: Chronic (10) Nausea & vomiting Status: Acute Plan: KUB, NAUSEA CONTROL. PPI GERD TREATMENT, ADVANCE DIET TOLERATED (11) Anemia Status: Acute Plan: S/P TRANSFUSION (12) Pancreatic abnormality Status: Acute Plan: AMYLASE AND LIPASE NORMAL. NAUSEA CONTROL, CLEAR LIQUIDS. CT ABD PELVIS WITH CONTRAST (13) Elevated liver enzymes Status: Acute Plan: SEE ABOVE, HEPATITIS PANEL ORDERED
[2018-01-27] MEDS ORDERED: NS 100 ML IV 100 ML IV ONE (14:06)
[2018-01-27 14:12] LABS: ALANINE AMINOTRANSFERASE 12 Units/L (12-78); ALBUMIN 1.9 g/dL (3.4-5.0); ALKALINE PHOSPHATASE 326 Units/L (46-116); ASPARTATE AMINO TRANSFERASE 32 Units/L (15-37); TOTAL PROTEIN 6.2 g/dL (6.4-8.2)
--- NOTE | 2018-01-27 16:06 | CT ---
HISTORY: Abdominal pain. Study: CT abdomen with contrast Comparison: CT abdomen/pelvis dated January 25, 2018. Technique: Multiple axial images of the abdomen after the administration of IV contrast. Dose reduction techniq ues including Automated Exposure Control (AEC) and adjustment of mA and kV were utilized. Findings: Left greater than right bibasilar atelectasis versus early infiltrate. Mild centrilobular emphysemato us changes. Pneumatoceles are also seen within the right lung. Hepatomegaly and hepatic steatosis. Th e gallbladder is surgically absent. Multiple simple appearing renal cysts. The kidneys are otherwise unremarkable. The spleen, and adrenal glands are unremarkable. Nonspecific cystic dilatation of the b ibeth and tail of the pancreas measuring 5.6 x 9.6 x 8.0 cm in greatest dimension. No significant mese nteric lymphadenopathy or stranding can be observed. No free fluid or free air is seen within the ab domen. The visualized large and small bowel are unremarkable. Degenerative changes of the spine. No aggressive osseous lesions. IMPRESSION: 9.6 cm nonspecific cystic dilatation of the body and tail of the pancreas. Differential diagnosis includes, but is not limited to: Pancreatic pseudocyst, intraductal papillary mucinous neop lasm (IPMN), series cystadenoma, or mucinous cystic neoplasm of the pancreas. Recommend MRI of the ab domen with contrast for further characterization. Reported By:
--- NOTE | 2018-01-27 17:55 | PCM.PROG ---
Progress Note - Progress Note for Day of Date: 01/24/18 - Subjective Subjective: IS A 63 YEAR OLD PATIENT OF WHO PRESENTED TO THE EMERGENCY ROOM VIA EMS WITH COMPLAINTS OF XIPHOID CHEST PAIN, SHORTNESS OF BREATH, AND WHEEZING WITH CHRONIC COPD. PT CO N/V/D WHICH HAD IMPROVED, AFTER ADVANCING DIET SYMPTOMS RETURNED. PT CO NAUSEA, ABDOMINAL DISTENTION. PT HAS ELEVATED LFT'S, CT SCAN ABD ORDERED, REPEAT OCCULT STOOL STUDIES - Past Medical Family Social History Past Med/Fam/Surg Hx: No changes since H&P Allergies: Allergies ketorolac [From Toradol] Allergy (Verified 01/19/18 05:23) nalbuphine [From Nubain] Allergy (Verified 01/19/18 05:23) Penicillins Allergy (Verified 01/19/18 05:23) Sulfa (Sulfonamide Antibiotics) [SULFA] Allergy (Verified 01/19/18 05:23) BETA BLOCKERS Allergy (Uncoded 01/19/18 05:23) - Review of Systems ROS: No change since H&P - Vital Signs and I&O's Vital Signs: Temperature 98.2 F Pulse Rate [Right Brachial] 107 Pulse Rate [Left Brachial] 110 Pulse Rate [Right] 112 Pulse Rate 110 Respiratory Rate 20 Blood Pressure [Left Arm] 123/59 Blood Pressure [Right Arm] 88/46 Blood Pressure 107/52 O2 Sat by Pulse Oximetry 91 Intake and Output: Intake & Output 01/25/18 01/26/18 01/27/18 01/28/18 11:59 11:59 11:59 11:59 Intake Total 1180 / 1180 2735 / 2735 603 / 603 300 / 300 Balance 1180 / 1180 2735 / 2735 603 / 603 300 / 300 - Physical Exam Oriented: Normal Eyes: Normal Ear: Normal Nose: Normal Throat: Normal Respiratory: Diminished Cardiovascular: Edema (LOWER EXTREMITY NON PITTING EDEMA ) : Normal Auscultation: Bowel Sounds: Normal Tenderness: RUQ, LUQ, Epigastric, Mild, Other (MODERATE DIFFUSE DISTENTION) Skin: Normal Musculoskeletal: Back:Thoracic, Back:Lumbar, Motor Deficit, Sensory Deficit Psychiatric: Normal Mood Description: Calm Affect: Normal Speech Pattern: Clear, Appropriate - Laboratory and Diagnostics Result Diagrams: 01/27/18 04:55 01/27/18 04:55 Labs: Laboratory WBC 7.6 X10^3/uL (3.6-10.0) 01/27/18 04:55 RBC 2.88 X10^6/uL (3.5-5.4) L 01/27/18 04:55 Hgb 8.6 g/dL (12.0-16.0) L 01/27/18 04:55 Hct 24.9 % (36.0-47.0) L 01/27/18 04:55 MCV 86.4 fL (80.0-100.0) 01/27/18 04:55 MCH 29.7 pg (27.0-34.0) 01/27/18 04:55 MCHC 34.4 g/dL (33.0-35.0) 01/27/18 04:55 RDW 15.9 % (11.6-16.5) 01/27/18 04:55 Plt Count 216 X10^3/uL (150.0-450.0) 01/27/18 04:55 Plt Count Comment Adequate (ADEQUATE) 01/21/18 04:59 MPV 9.5 fL (7.4-11.0) 01/27/18 04:55 Neut % (Auto) 65.4 % (42.0-75.0) 01/27/18 04:55 Lymph % (Auto) 15.6 % (21.0-51.0) L 01/27/18 04:55 [place] % (Auto) 14.8 % (0.0-13.0) H 01/27/18 04:55 Eos % (Auto) 3.3 % (0.9-2.9) H 01/27/18 04:55 Baso % (Auto) 0.9 % (0.2-1.0) 01/27/18 04:55 Neut # (Auto) 5.0 x10^3/uL (2.2-4.8) H 01/27/18 04:55 Lymph # (Auto) 1.2 X10^3/uL (1.3-2.9) L 01/27/18 04:55 [place] # (Auto) 1.1 x10^3/uL (0.3-0.8) H 01/27/18 04:55 Eos # (Auto) 0.3 x10^3/uL (0.0-0.2) H 01/27/18 04:55 Baso # (Auto) 0.1 X10^3/uL (0.0-0.1) 01/27/18 04:55 Absolute Nucleated RBC 0.1 /100WBC 01/27/18 04:55 Plt Morphology Comment Normal (NORMAL) 01/21/18 04:59 RBC Morphology Abnormal (NORMAL) A 01/21/18 04:59 Hypochromasia Slight A 01/21/18 04:59 Anisocytosis 1+ A 01/21/18 04:59 Microcytosis 1+ A 01/21/18 04:59 Stomatocytes Present 01/19/18 03:44 INR Target Range - 01/19/18 03:44 INR 1.11 (0.8-1.3) 01/19/18 03:44 APTT 35.4 SECONDS (22.9-36.5) 01/19/18 03:44 PTT Comment - 01/19/18 03:44 Sodium 134 mmol/L (136-145) L 01/27/18 04:55 Corrected Sodium TNP 01/27/18 04:55 Potassium 3.3 mmol/L (3.5-5.1) L 01/27/18 04:55 Chloride 94 mmol/L (98-107) L 01/27/18 04:55 Carbon Dioxide 33.2 mmol/L (21-32) H 01/27/18 04:55 BUN 9 mg/dL (7-18) 01/27/18 04:55 Creatinine 1.21 mg/dL (0.55-1.02) H 01/27/18 04:55 Est GFR (MDRD) Af Amer 57 (>60) L 01/27/18 04:55 Est GFR (MDRD) Non-Af 47 (>60) L 01/27/18 04:55 Glucose 81 mg/dL (65-99) 01/27/18 04:55 POC Glucose (mg/dL) 148 mg/dL (65-99) H 01/20/18 20:46 Calcium 8.3 mg/dL (8.5-10.1) L 01/27/18 04:55 Corrected Calcium 10.0 mg/dL (8.5-10.1) 01/27/18 04:55 Magnesium 1.3 mg/dL (1.7-2.9) L 01/27/18 06:55 Iron 182 ug/dL (50-175) H 01/22/18 04:25 TIBC 182 ug/dL (250-450) L 01/22/18 04:25 Transferrin 122 mg/dL (202-364) L 01/20/18 05:54 Ferritin 785 ng/mL (8-252) H 01/22/18 04:25 Total Bilirubin 0.60 mg/dL (0.2-1.0) 01/27/18 04:55 AST 32 Units/L (15-37) 01/27/18 04:55 ALT 12 Units/L (12-78) 01/27/18 04:55 Alkaline Phosphatase 326 Units/L (46-116) H 01/27/18 04:55 Creatine Kinase 11 Units/L (26-192) L 01/27/18 10:52 CK-MB (CK-2) < 1.0 ng/mL (0-4.0) 01/27/18 10:52 CK/CKMB % Calc 9.1 % (<4) 01/27/18 10:52 Troponin I < 0.02 ng/mL (0-1.5) 01/27/18 10:52 Total Protein 6.2 g/dL (6.4-8.2) L 01/27/18 04:55 Albumin 1.9 g/dL (3.4-5.0) L 01/27/18 04:55 Globulin 4.3 g/dL (2.5-4.5) 01/27/18 04:55 Albumin/Globulin Ratio 0.4 Ratio (1.1-2.1) L 01/27/18 04:55 Triglycerides 178 mg/dL (0-150) H 01/19/18 05:15 Cholesterol 80 mg/dL (0-200) 01/19/18 05:15 LDL Cholesterol, Calc 25 mg/dL (0-100) 01/19/18 05:15 HDL Cholesterol 19 mg/dL (40-60) L 01/19/18 05:15 Cholesterol/HDL Ratio 4.2 (0.0-5.0) 01/19/18 05:15 Amylase 48 Units/L (25-115) 01/26/18 04:30 Lipase 162 Units/L (73-393) 01/26/18 04:30 Vitamin B12 1083 pg/mL (193-986) H 01/20/18 05:54 Folate 7.9 ng/mL (>8.6) L 01/20/18 05:54 Free T4 0.74 ng/dL (0.76-1.46) L 01/22/18 04:25 TSH 3rd Generation 3.479 uIU/mL (0.358-3.74) 01/22/18 04:25 Stool Description 10g unformed brown 01/25/18 20:38 Stl Occult Blood (IFOB) Negative (NEGATIVE) 01/25/18 20:38 H. pylori IgG Antibody Negative (NEGATIVE) 01/19/18 03:44 Blood Type O POSITIVE 01/22/18 08:25 Antibody Screen Negative 01/22/18 08:25 Crossmatch See Detail 01/22/18 08:25 - Plan (1) SOB (shortness of breath) Status: Acute Plan: CONTINUE RESP THERAPY, IV ATBX, SUPPLEMENTAL O2,. CHF MANAGEMENT, BP AND LIPID CONTROL. REPEAT AM LABS AND CXR. CO N/V/D STOOL STUDIES COLLECTED, GASTROCCULT POSITIVE (2) COPD exacerbation Status: Acute (3) COPD (chronic obstructive pulmonary disease) Status: Acute Qualifiers: COPD type: COPD with acute exacerbation Qualified Code(s): J44.1 - Chronic obstructive pulmonary disease with (acute) exacerbation Plan: DUONEBS Q4H, SUPPLEMENTAL OXYGEN (4) CHF (congestive heart failure) Status: Chronic (5) GERD (gastroesophageal reflux disease) Status: Chronic (6) Degenerative joint disease (DJD) of hip Status: Chronic Qualifiers: Osteoarthritis type: unspecified Laterality: right Qualified Code(s): M16.11 - Unilateral primary osteoarthritis, right hip (7) DHARA (generalized anxiety disorder) Status: Chronic (8) DDD (degenerative disc disease), lumbosacral Status: Chronic (9) Essential hypertension Status: Chronic (10) Nausea & vomiting Status: Acute Plan: KUB, NAUSEA CONTROL. PPI GERD TREATMENT, ADVANCE DIET TOLERATED (11) Anemia Status: Acute Plan: S/P TRANSFUSION
[2018-01-27] MEDS: COLACE CAP 100 MG PO SCH (20:51)
[2018-01-28] MEDS: DUONEB 0.5 MG/3 MG NEB SCH ×6 (01:10→20:28)
[2018-01-28] MEDS: NEURONTIN CAP 300 MG PO SCH ×3 (05:45→21:45)
[2018-01-28] MEDS: REGLAN TAB 10 MG PO SCH ×4 (05:45→20:51)
[2018-01-28] MEDS: CARAFATE PO SCH ×5 (05:45→20:51)
[2018-01-28 05:51] LABS: ALANINE AMINOTRANSFERASE 10 Units/L (12-78); ALBUMIN 1.9 g/dL (3.4-5.0); ALKALINE PHOSPHATASE 301 Units/L (46-116); ASPARTATE AMINO TRANSFERASE 30 Units/L (15-37); BLOOD UREA NITROGEN 8 mg/dL (7-18); CALCIUM 8.3 mg/dL (8.5-10.1); CARBON DIOXIDE 31.7 mmol/L (21-32); CHLORIDE 96 mmol/L (98-107); CREATININE 1.09 mg/dL (0.55-1.02); MAGNESIUM 2.3 mg/dL (1.7-2.9); SODIUM 134 mmol/L (136-145); TOTAL PROTEIN 6.2 g/dL (6.4-8.2); eGFR NON BLACK RACES 54 (>60)
[2018-01-28 06:11] LABS: BASOPHILS # (AUTO) 0.1 X10^3/uL (0.0-0.1); BASOPHILS % (AUTO) 0.7 % (0.2-1.0); EOSINOPHILS # (AUTO) 0.2 x10^3/uL (0.0-0.2); EOSINOPHILS % (AUTO) 2.4 % (0.9-2.9); HEMATOCRIT 24.7 % (36.0-47.0); HEMOGLOBIN 8.5 g/dL (12.0-16.0); LYMPHOCYTES # (AUTO) 1.4 X10^3/uL (1.3-2.9); LYMPHOCYTES % (AUTO) 16.7 % (21.0-51.0); MEAN CORPUSCULAR HEMOGLOBIN 29.7 pg (27.0-34.0); MEAN CORPUSCULAR HGB CONC 34.2 g/dL (33.0-35.0); MEAN CORPUSCULAR VOLUME 86.7 fL (80.0-100.0); MEAN PLATELET VOLUME 9.1 fL (7.4-11.0); MONOCYTES # (AUTO) 1.5 x10^3/uL (0.3-0.8); MONOCYTES % (AUTO) 18.4 % (0.0-13.0); NEUTROPHILS # (AUTO) 5.2 x10^3/uL (2.2-4.8); NEUTROPHILS % (AUTO) 61.8 % (42.0-75.0); PLATELET COUNT 233 X10^3/uL (150.0-450.0); RED BLOOD COUNT 2.85 X10^6/uL (3.5-5.4); WHITE BLOOD COUNT 8.4 X10^3/uL (3.6-10.0)
[2018-01-28] MEDS: MILK OF MAGNESIA PO SCH ×2 (08:27→20:51)
[2018-01-28] MEDS: LASIX PO SCH ×2 (09:45→20:50)
[2018-01-28] MEDS: LEVAQUIN PREMIX IV 250 MG 250 MG/50 ML BAG IV SCH (09:45)
[2018-01-28] MEDS: MORPHINE SULFATE INJ 2 MG INJ IVP PRN ×2 (09:45→19:35)
[2018-01-28] MEDS: ROBITUSSIN DM PO PRN ×2 (09:45→20:51)
[2018-01-28] MEDS: XANAX PO PRN (09:45)
[2018-01-28] MEDS: PROTONIX INJ 40 MG VIAL IVP SCH ×2 (09:45→20:50)
[2018-01-28] MEDS: K-DUR TAB 20 MEQ PO SCH (11:17)
[2018-01-28] MEDS: NS 250 ML IV 250 ML IV SCH (11:30)
[2018-01-28] MEDS ORDERED: BENADRYL INJ 50 MG VIAL IVP SCH (12:18)
[2018-01-28] MEDS ORDERED: MORPHINE SULFATE INJ 2 MG INJ IVP SCH (12:20)
[2018-01-28] MEDS: PHENERGAN INJ 25 MG IV PRN (19:35)
[2018-01-28] MEDS: COLACE CAP 100 MG PO SCH (20:51)
[2018-01-29] MEDS: DUONEB 0.5 MG/3 MG NEB SCH ×4 (01:35→12:25)
[2018-01-29] MEDS: NS 250 ML IV 250 ML IV SCH (02:15)
[2018-01-29 05:51] LABS: ALANINE AMINOTRANSFERASE 10 Units/L (12-78); ALBUMIN 1.8 g/dL (3.4-5.0); ALKALINE PHOSPHATASE 289 Units/L (46-116); ASPARTATE AMINO TRANSFERASE 38 Units/L (15-37); BLOOD UREA NITROGEN 9 mg/dL (7-18); CALCIUM 8.2 mg/dL (8.5-10.1); CARBON DIOXIDE 31.2 mmol/L (21-32); CHLORIDE 97 mmol/L (98-107); CREATININE 1.08 mg/dL (0.55-1.02); SODIUM 136 mmol/L (136-145); TOTAL PROTEIN 6.2 g/dL (6.4-8.2); eGFR NON BLACK RACES 54 (>60)
[2018-01-29 05:58] LABS: BASOPHILS # (AUTO) 0.1 X10^3/uL (0.0-0.1); BASOPHILS % (AUTO) 0.7 % (0.2-1.0); EOSINOPHILS # (AUTO) 0.2 x10^3/uL (0.0-0.2); EOSINOPHILS % (AUTO) 1.9 % (0.9-2.9); HEMATOCRIT 23.6 % (36.0-47.0); HEMOGLOBIN 8.1 g/dL (12.0-16.0); LYMPHOCYTES # (AUTO) 1.8 X10^3/uL (1.3-2.9); LYMPHOCYTES % (AUTO) 18.4 % (21.0-51.0); MEAN CORPUSCULAR HEMOGLOBIN 29.5 pg (27.0-34.0); MEAN CORPUSCULAR HGB CONC 34.3 g/dL (33.0-35.0); MEAN PLATELET VOLUME 9.4 fL (7.4-11.0); MONOCYTES # (AUTO) 1.7 x10^3/uL (0.3-0.8); MONOCYTES % (AUTO) 17.6 % (0.0-13.0); NEUTROPHILS # (AUTO) 5.8 x10^3/uL (2.2-4.8); NEUTROPHILS % (AUTO) 61.4 % (42.0-75.0); PLATELET COUNT 252 X10^3/uL (150.0-450.0); RED BLOOD COUNT 2.75 X10^6/uL (3.5-5.4); RED CELL DISTRIBUTION WIDTH 15.9 % (11.6-16.5); WHITE BLOOD COUNT 9.5 X10^3/uL (3.6-10.0)
[2018-01-29] MEDS: NEURONTIN CAP 300 MG PO SCH ×2 (06:10→13:48)
[2018-01-29] MEDS: CARAFATE PO SCH ×2 (06:11→12:49)
[2018-01-29] MEDS: REGLAN TAB 10 MG PO SCH ×2 (06:11→12:50)
[2018-01-29] MEDS: LASIX PO SCH (09:00)
[2018-01-29] MEDS: PROTONIX INJ 40 MG VIAL IVP SCH (09:00)
[2018-01-29] MEDS: LEVAQUIN PREMIX IV 250 MG 250 MG/50 ML BAG IV SCH (09:00)
[2018-01-29] MEDS: K-DUR TAB 20 MEQ PO SCH (09:00)
[2018-01-29] MEDS: MILK OF MAGNESIA PO SCH (09:17)
[2018-01-29] MEDS: MORPHINE SULFATE INJ 2 MG INJ IVP PRN (11:31)
[2018-01-29] MEDS: PHENERGAN INJ 25 MG IV PRN (11:31)
[2018-01-29 17:12] VITALS: BP 83/49
[2018-01-31 01:01] LABS: HEPATITIS A ANTIBODY IGM Negative (Negative)
[2018-02-02 10:41] LABS: HEPATITIS B CORE IGM Negative (Negative); HEPATITIS B SURFACE ANTIGEN Negative (Negative)
== END 2018-01-29 17:45 | disposition home health service (06) | DRG 313 ==
LOC: MED/SURG 03:05 → ER 03:05 → MED/SURG 05:31
PROVIDERS: ADMIT Internal Medicine; ATTEND Internal Medicine
DX: J20.8 Acute bronchitis due to other specified organisms; F41.8 Other specified anxiety disorders; M53.3 Sacrococcygeal disorders, not elsewhere classified; K21.9 Gastro-esophageal reflux disease without esophagitis; I10 Essential (primary) hypertension; R11.2 Nausea with vomiting, unspecified; R07.2 Precordial pain; D64.89 Other specified anemias; R94.31 Abnormal electrocardiogram [ECG] [EKG]; M16.11 Unilateral primary osteoarthritis, right hip; R60.0 Localized edema; Z99.81 Dependence on supplemental oxygen; J45.998 Other asthma; R97.0 Elevated carcinoembryonic antigen [CEA]; I50.9 Heart failure, unspecified; R74.8 Abnormal levels of other serum enzymes; J44.1 Chronic obstructive pulmonary disease with (acute) exacerbation; R94.8 Abnormal results of function studies of other organs and systems; R06.02 Shortness of breath; I25.10 Atherosclerotic heart disease of native coronary artery without angina pectoris
CPT/HCPCS: 36415; 36430; 71010; 71045; 74000; 74018; 74160; 74176; 80048; 80053; 80061; 80074; 82150; 82270; 82378; 82550; 82553; 82607; 82728; 82746; 83540; 83550; 83690; 83735; 84132; 84439; 84443; 84466; 84484; 85025; 85610; 85730; 86301; 86316; 86677; 86850; 86900; 86901; 86922; 93005; 93010; 94640; 94760; 96365; 99284; A4216; A4222; C9113; P9016; G0378; J1200; J1642; J1650; J1956; J2270; J2405; J2550; J2920; J2930; J3475; J3480; J3490; J7050; J7620; J8499

== ENCOUNTER 2018-03-18 07:21 | Inpatient (IN) ==
[2018-03-18] MEDS ORDERED: ZOFRAN INJ 4 MG VIAL ONE ×2 (07:25→11:29)
[2018-03-18 07:37] VITALS: BMI 36.7
[2018-03-18] MEDS ORDERED: ZOFRAN INJ 4 MG VIAL IVP ONE (07:38)
[2018-03-18 08:02] LABS: BASOPHILS # (AUTO) 0.1 X10^3/uL (0.0-0.1); EOSINOPHILS # (AUTO) 0.4 x10^3/uL (0.0-0.2); EOSINOPHILS % (AUTO) 5.9 % (0.9-2.9); HEMATOCRIT 34.3 % (36.0-47.0); HEMOGLOBIN 11.6 g/dL (12.0-16.0); LYMPHOCYTES # (AUTO) 1.2 X10^3/uL (1.3-2.9); LYMPHOCYTES % (AUTO) 16.2 % (21.0-51.0); MEAN CORPUSCULAR HEMOGLOBIN 30.1 pg (27.0-34.0); MEAN CORPUSCULAR HGB CONC 33.8 g/dL (33.0-35.0); MEAN CORPUSCULAR VOLUME 89.1 fL (80.0-100.0); MEAN PLATELET VOLUME 8.1 fL (7.4-11.0); MONOCYTES # (AUTO) 0.9 x10^3/uL (0.3-0.8); MONOCYTES % (AUTO) 11.7 % (0.0-13.0); NEUTROPHILS # (AUTO) 4.8 x10^3/uL (2.2-4.8); NEUTROPHILS % (AUTO) 65.2 % (42.0-75.0); PLATELET COUNT 369 X10^3/uL (150.0-450.0); RED BLOOD COUNT 3.85 X10^6/uL (3.5-5.4); RED CELL DISTRIBUTION WIDTH 15.9 % (11.6-16.5); WHITE BLOOD COUNT 7.4 X10^3/uL (3.6-10.0)
[2018-03-18 08:07] LABS: BLOOD UREA NITROGEN 20 mg/dL (7-18); CARBON DIOXIDE 30.8 mmol/L (21-32); CHLORIDE 100 mmol/L (98-107); CREATININE 1.21 mg/dL (0.55-1.02); SODIUM 139 mmol/L (136-145); eGFR NON BLACK RACES 47 (>60)
[2018-03-18 08:10] LABS: ALANINE AMINOTRANSFERASE 42 Units/L (12-78); ALBUMIN 3.2 g/dL (3.4-5.0); ALKALINE PHOSPHATASE 139 Units/L (46-116); AMYLASE 39 Units/L (25-115); ASPARTATE AMINO TRANSFERASE 55 Units/L (15-37); COR CA(FOR HYPOALB) 14.7 mg/dL (8.5-10.1); TOTAL PROTEIN 8.4 g/dL (6.4-8.2)
[2018-03-18 08:11] LABS: CALCIUM 14.1 mg/dL (8.5-10.1)
[2018-03-18] MEDS ORDERED: NS 1000 ML 1,000 ML ONE ×2 (08:11→11:31)
--- NOTE | 2018-03-18 08:13 | DR.NAUSEAF ---
HPI Time Seen Time seen: 07:34 HPI Comment HPI Comment: DIFFUSE ABDOMINAL PAIN, NON RADIATING ASSOCIATED WITH N/V/D. PAIN IS NOT IMPROVE WITH MEDS TAKING SO FAR. NOT KEEPING DOWN FLUID OR FOOD. STARTED WHEN PATIENT ATE TUNA FROM A CAN. HAVE NOT TAKEN Complaints Chief Complaint Doctors Comments: ABDOMINAL PAIN, N/V/D FOR 4 DAYS. GETTING WORSE. Reviewed Nurses Notes Reviewed: Yes Source History Provided: Patient Mode of Arrival Mode of Arrival: EMS Context Onset: Spontaneous Recent: None : No History of: None Quality Quality: Bilious (GREEN VOMITUS. STOOL GREEN ALSO.) Associated Signs and Symptoms Abdominal Pain Quality: Cramping and Sharp Abdominal Pain Location: Diffuse Symptoms: Diarrhea and Anorexia PMH PMH Past Medical History: Anxiety, Arthritis, Asthma, CHF, COPD, Coronary Artery Disease, GERD and Hypertension Past Surgical History: Yes Surgical History: Abdominal Surgery, Appendectomy, Bowel Resection and Cholecystectomy Family History Family Medical History: Diabetes Mellitus and Hypertension Social History Do you use any recreational Drugs:: No ROS Review of Systems Constitutional: Weakness, Fatigue and Loss of Appetite; negative Chills and Fever Eyes: No Symptoms Reported and Discharge ENTM: No Symptoms Reported and Nose Congestion; negative Epistaxis and Throat Pain Respiratoy: No Symptoms Reported Cardiovascular: No Symptoms Reported Gastrointestinal/Abdominal: Abdominal Pain, Diarrhea, Nausea and Vomiting Genitourinary: No Symptoms Reported Neurological: No Symptoms Reported, Depressed, Headache, Weakness and Dizziness Musculoskeletal: Muscle Pain Integumentary: No Symptoms Reported and Dryness Hematologic/Lymphatic: No Symptoms Reported Endocrine: No Symptoms Reported Psychiatric: No Symptoms Reported All Other Systems: Reviewed and Negative PE Vital Signs Vitals: Temperature 97.6 F Pulse Rate [Right Radial] 91 Pulse Rate 92 Respiratory Rate 20 Blood Pressure [Left Arm] 120/63 Blood Pressure [Right Arm] 148/66 Blood Pressure 159/95 O2 Sat by Pulse Oximetry 95 General Limitations: No Limitations Head Head Exam: Normal Inspection Eyes Eye exam: Normal Appearance; negative Scleral Icterus and Conjunctival Injection ENT ENT Exam: Normal Oropharynx, Normal External Ear Exam, Mucous Membranes Dry and TM's Normal Bilaterally Neck Neck Exam: Normal Inspection and Trachea Midline; negative Tenderness, Meningismus and Lymphadenopathy Chest Chest Inspection: Symmetric Chest Wall Rise Respiratory Respiratory Exam: Respiratory Distress (mild respiratory distress.) Respiratory Exam: Bilateral: Wheezing and Bilateral: Rhonchi and Lower: Wheezing and Lower: Rhonchi Cardiovascular Cardiovascular Exam: Regular Rate, Normal Rhythm and Normal Heart Sounds Abdominal Exam Abdominal Exam: Normal Bowel Sounds, Soft, Distention and Tenderness Abdominal Tenderness: Diffuse and Moderate Rectal Rectal Exam: Deferred External Exam: Female: Deferred : Speculum Exam (Female): Deferred : Bimanual Exam (female): Deferred Extremities Extremities Exam: Edema Back Back Exam: Paraspinal Tenderness Neurologic Neurological Exam: Alert, Oriented X3 and CN II-XII Intact; negative Motor Sensory Deficit Psychiatric Psychiatric Exam: Anxious Skin Skin Exam: Dry MDM Differential Diagnosis Differential Diagnosis: Considerations may Include:: Bowel Obstruction, Gastritis, Gastroenteritis, Inflammatory BD, Pancreatitis, PUD, Urinary Tract Infection and Urolithiasis COURSE Treatment Treatment: SEE ORDERS. PATIENT OUT TO DR. CUI ROR Labs Reviewed Result Diagrams: 03/18/18 07:50 03/18/18 07:50 Laboratory: WBC 7.4 X10^3/uL (3.6-10.0) 03/18/18 07:50 RBC 3.85 X10^6/uL (3.5-5.4) 03/18/18 07:50 Hgb 11.6 g/dL (12.0-16.0) L 03/18/18 07:50 Hct 34.3 % (36.0-47.0) L 03/18/18 07:50 MCV 89.1 fL (80.0-100.0) 03/18/18 07:50 MCH 30.1 pg (27.0-34.0) 03/18/18 07:50 MCHC 33.8 g/dL (33.0-35.0) 03/18/18 07:50 RDW 15.9 % (11.6-16.5) 03/18/18 07:50 Plt Count 369 X10^3/uL (150.0-450.0) 03/18/18 07:50 MPV 8.1 fL (7.4-11.0) 03/18/18 07:50 Neut % (Auto) 65.2 % (42.0-75.0) 03/18/18 07:50 Lymph % (Auto) 16.2 % (21.0-51.0) L 03/18/18 07:50 [place] % (Auto) 11.7 % (0.0-13.0) 03/18/18 07:50 Eos % (Auto) 5.9 % (0.9-2.9) H 03/18/18 07:50 Baso % (Auto) 1.0 % (0.2-1.0) 03/18/18 07:50 Neut # (Auto) 4.8 x10^3/uL (2.2-4.8) 03/18/18 07:50 Lymph # (Auto) 1.2 X10^3/uL (1.3-2.9) L 03/18/18 07:50 [place] # (Auto) 0.9 x10^3/uL (0.3-0.8) H 03/18/18 07:50 Eos # (Auto) 0.4 x10^3/uL (0.0-0.2) H 03/18/18 07:50 Baso # (Auto) 0.1 X10^3/uL (0.0-0.1) 03/18/18 07:50 Absolute Nucleated RBC 0.0 /100WBC 03/18/18 07:50 Sodium 139 mmol/L (136-145) 03/18/18 07:50 Corrected Sodium TNP 03/18/18 07:50 Potassium 3.5 mmol/L (3.5-5.1) 03/18/18 07:50 Chloride 100 mmol/L (98-107) 03/18/18 07:50 Carbon Dioxide 30.8 mmol/L (21-32) 03/18/18 07:50 BUN 20 mg/dL (7-18) H 03/18/18 07:50 Creatinine 1.21 mg/dL (0.55-1.02) H 03/18/18 07:50 Est GFR (MDRD) Af Amer 57 (>60) L 03/18/18 07:50 Est GFR (MDRD) Non-Af 47 (>60) L 03/18/18 07:50 Glucose 94 mg/dL (65-99) 03/18/18 07:50 Calcium 13.8 mg/dL (8.5-10.1) H* 03/18/18 09:35 Corrected Calcium 14.7 mg/dL (8.5-10.1) H 03/18/18 07:50 Total Bilirubin 0.40 mg/dL (0.2-1.0) 03/18/18 07:50 AST 55 Units/L (15-37) H 03/18/18 07:50 ALT 42 Units/L (12-78) 03/18/18 07:50 Alkaline Phosphatase 139 Units/L (46-116) H 03/18/18 07:50 Total Protein 8.4 g/dL (6.4-8.2) H 03/18/18 07:50 Albumin 3.2 g/dL (3.4-5.0) L 03/18/18 07:50 Globulin 5.2 g/dL (2.5-4.5) H 03/18/18 07:50 Albumin/Globulin Ratio 0.6 Ratio (1.1-2.1) L 03/18/18 07:50 Amylase 39 Units/L (25-115) 03/18/18 07:50 Lipase 182 Units/L (73-393) 03/18/18 07:50 Specimen Type Catherized urine 03/18/18 14:53 Urine Color Yellow (YELLOW) 03/18/18 14:53 Urine Appearance Slightly hazy (CLEAR) 03/18/18 14:53 Urine pH 5.0 (5.0 - 8.0) 03/18/18 14:53 Ur Specific [place] 1.025 (1.000-1.030) 03/18/18 14:53 Urine Protein 2+ (NEGATIVE) 03/18/18 14:53 Urine Glucose (UA) Negative (NEGATIVE) 03/18/18 14:53 Urine Ketones 2+ (NEGATIVE) 03/18/18 14:53 Urine Occult Blood 2+ (NEGATIVE) 03/18/18 14:53 Urine Nitrite Negative (NEGATIVE) 03/18/18 14:53 Urine Bilirubin Negative (NEGATIVE) 03/18/18 14:53 Urine Urobilinogen Normal (NORMAL) 03/18/18 14:53 Ur Leukocyte Esterase Negative (NEGATIVE) 03/18/18 14:53 Urine RBC 3-5 /HPF (NONE SEEN) 03/18/18 14:53 Urine WBC None seen /HPF (NONE SEEN) 03/18/18 14:53 Ur Squamous Epith Cells Rare /HPF (NEGATIVE) 03/18/18 14:53 Amorphous Sediment 2+ /HPF (NEGATIVE) 03/18/18 14:53 Urine Bacteria Trace /HPF (NEGATIVE) 03/18/18 14:53 Ur Culture Indicated? No/not indicated 03/18/18 14:53
[2018-03-18] MEDS ORDERED: PEPCID 20 MG IV PREMIX* 20 MG/50 ML BAG IV ONE ×2 (08:18→08:20)
[2018-03-18] MEDS ORDERED: PHENERGAN INJ 25 MG ONE (08:18)
[2018-03-18] MEDS ORDERED: DEMEROL INJ ONE (08:19)
[2018-03-18] MEDS ORDERED: PHENERGAN INJ 25 MG IV ONE (08:20)
[2018-03-18] MEDS ORDERED: DEMEROL INJ IVP ONE (08:21)
[2018-03-18] MEDS ORDERED: NS 1000 ML 1,000 ML IV SCH (09:00)
[2018-03-18] MEDS ORDERED: NS 1000 ML 1,000 ML IV ONE (09:40)
--- NOTE | 2018-03-18 09:42 | CT ---
HISTORY: Diffuse abdominal pain, nausea, vomiting Study: CT abdomen pelvis without contrast Comparison: 01/27/2018 Technique: Axial noncontrast images with coronal and sagittal reformats. Dose reduction procedures we re used with mA/kv adjusted for body size. The examination is limited due to the lack of intravenous and oral contrast. The examination was performed in this manner at the sole discretion of the orderin g caregiver and without any input from Radiology. Findings: The lung bases are clear with the exception of mild atelectatic changes in the left lung base. The li estela is enlarged and decreased in attenuation suggestive of diffuse fatty infiltration. The patient is status post cholecystectomy. The spleen, and adrenal glands are normal. The head and distal body of the pancreas appear normal. There is residual enlargement of the tail and proximal body of the pancre as however the cystic areas present on the prior examination appear to have resolved. Pancreatic neop lasm still cannot be excluded. MRI of the pancreas with and without contrast is recommended for furth er evaluation. The kidneys are unobstructed and without stones. Bilateral renal cysts are unchanged. No ureteral calculi are identified. Calcific atherosclerotic changes present in a nondilated abdomina l aorta. No intraperitoneal or retroperitoneal lymphadenopathy of significance is identified. The latesha endix is not identified with absolute certainty. There are no secondary signs of appendicitis present . There are no findings suggestive of diverticulitis or colitis. Examination of the pelvis demonstrat ed no evidence for pelvic masses, pelvic fluid, or pelvic lymphadenopathy. No bladder abnormality is identified. No lytic or blastic skeletal lesions are identified. IMPRESSION: Enlargement of the tail and proximal body of the pancreas but with resolution of the previously noted cystic change. Underlying neoplasm still cannot be entirely excluded and MRI of the pancreas with an d without contrast is recommended for further evaluation. Hepatomegaly with diffuse fatty infiltrate Reported By:
[2018-03-18] MEDS ORDERED: ZOFRAN INJ 4 MG VIAL IVP PRN (10:38)
[2018-03-18] MEDS: NS 1000 ML 1,000 ML IV SCH ×2 (11:31→23:30)
[2018-03-18] MEDS: DUONEB 0.5 MG/3 MG NEB PRN ×2 (12:19→16:52)
[2018-03-18] MEDS: TYLENOL 325 MG TAB PO PRN (13:49)
[2018-03-18] MEDS: BUTT CREAM (COMPOUND) TOP PRN (13:54)
[2018-03-18 15:01] LABS: BILIRUBIN,URINE NEGATIVE (NEGATIVE); BLOOD/HEMOGLOBIN,URINE 2+ (NEGATIVE); GLUCOSE, URINE NEGATIVE (NEGATIVE); KETONES,URINE 2+ (NEGATIVE); LEUKOCYTE ESTERASE ,URINE NEGATIVE (NEGATIVE); NITRITES,URINE NEGATIVE (NEGATIVE); PROTEIN,URINE 2+ (NEGATIVE); UROBILINOGEN,URINE NORMAL (NORMAL)
[2018-03-18 15:16] LABS: AMORPHOUS SEDIMENT,UR 2+ /HPF (NEGATIVE); APPEARANCE,URINE SLIGHTLY HAZY (CLEAR); BACTERIA,URINE TRACE /HPF (NEGATIVE); COLOR,URINE YELLOW (YELLOW); SQUAMOUS EPITHELIAL CELL,UR RARE /HPF (NEGATIVE)
[2018-03-18] MEDS: ZOFRAN INJ 4 MG VIAL IVP PRN (15:35)
[2018-03-18] MEDS ORDERED: DECADRON INJ PRESERVATIVE-FREE IM ONE (19:40)
[2018-03-18] MEDS ORDERED: NS 100 ML IV 100 ML IV ONE (19:40)
[2018-03-18] MEDS ORDERED: ATIVAN INJ 2 MG VIAL ONE (19:40)
[2018-03-18] MEDS: ZOFRAN INJ 4 MG VIAL 16 MG, ATIVAN INJ 2 MG VIAL 1 MG, DECADRON INJ 10 MG in NS 50 ML I... IV PRN (20:00)
[2018-03-18] MEDS: MILK OF MAGNESIA PO SCH (20:56)
[2018-03-18] MEDS: PERCOCET TAB 5/325 MG PO PRN (20:58)
[2018-03-18] MEDS: COLACE CAP 100 MG PO SCH (20:58)
[2018-03-19] MEDS: DUONEB 0.5 MG/3 MG NEB PRN ×3 (01:00→17:39)
[2018-03-19] MEDS: TYLENOL 325 MG TAB PO PRN (02:11)
[2018-03-19] MEDS: NS 1000 ML 1,000 ML IV SCH ×4 (03:00→18:19)
[2018-03-19] MEDS: PHENERGAN INJ 25 MG IV PRN ×3 (04:07→18:20)
[2018-03-19] MEDS: PERCOCET TAB 5/325 MG PO PRN ×4 (05:05→21:07)
[2018-03-19 05:22] LABS: BASOPHILS # (AUTO) 0.1 X10^3/uL (0.0-0.1); EOSINOPHILS % (AUTO) 0.1 % (0.9-2.9); HEMATOCRIT 31.3 % (36.0-47.0); HEMOGLOBIN 10.5 g/dL (12.0-16.0); LYMPHOCYTES # (AUTO) 0.8 X10^3/uL (1.3-2.9); LYMPHOCYTES % (AUTO) 11.9 % (21.0-51.0); MEAN CORPUSCULAR HEMOGLOBIN 29.8 pg (27.0-34.0); MEAN CORPUSCULAR HGB CONC 33.4 g/dL (33.0-35.0); MEAN CORPUSCULAR VOLUME 89.2 fL (80.0-100.0); MEAN PLATELET VOLUME 8.7 fL (7.4-11.0); MONOCYTES # (AUTO) 0.1 x10^3/uL (0.3-0.8); MONOCYTES % (AUTO) 1.7 % (0.0-13.0); NEUTROPHILS # (AUTO) 5.9 x10^3/uL (2.2-4.8); NEUTROPHILS % (AUTO) 85.3 % (42.0-75.0); PLATELET COUNT 325 X10^3/uL (150.0-450.0); RED BLOOD COUNT 3.51 X10^6/uL (3.5-5.4); RED CELL DISTRIBUTION WIDTH 15.7 % (11.6-16.5); WHITE BLOOD COUNT 6.9 X10^3/uL (3.6-10.0)
[2018-03-19] MEDS ORDERED: DECADRON INJ PRESERVATIVE-FREE IM ONE ×2 (05:41→21:41)
[2018-03-19] MEDS ORDERED: NS 100 ML IV 100 ML IV ONE ×2 (05:41→21:41)
[2018-03-19] MEDS ORDERED: ATIVAN INJ 2 MG VIAL ONE ×2 (05:42→21:42)
[2018-03-19 05:46] LABS: ALBUMIN 2.9 g/dL (3.4-5.0); CALCIUM 12.2 mg/dL (8.5-10.1); CARBON DIOXIDE 26.7 mmol/L (21-32); COR CA(FOR HYPOALB) 13.1 mg/dL (8.5-10.1); CREATININE 1.42 mg/dL (0.55-1.02); TOTAL PROTEIN 7.9 g/dL (6.4-8.2)
[2018-03-19] MEDS: ZOFRAN INJ 4 MG VIAL 16 MG, ATIVAN INJ 2 MG VIAL 1 MG, DECADRON INJ 10 MG in NS 50 ML I... IV PRN ×2 (05:52→22:00)
[2018-03-19] MEDS: MILK OF MAGNESIA PO SCH ×2 (08:44→21:17)
--- NOTE | 2018-03-19 09:22 | DR.H&P ---
H&P - History & Physical for Day of: H&P Date: 03/18/18 - Chief Complaint Chief Complaint: ABDOMINAL PAIN, N/V - History of Present Illness History of Present Illness: 63 WF ER ADMISSION AFER PRESENTING WITH CO ABDOMINAL PAIN N/V ABDOMINAL DISTENTION. PT HAD CT ABD PELVIS IN ER. PT LABS REVEALED HYPERCALCEMIA. PT HAS PMH OF RESP FAILURE, HTN, MO, CAD, CHF, OA, PANCREATIC MASS, GERD. PT WAS RECENTLY D/C FROM [facility] ONE WEEK AGO. PT HAS INCREASED FOOD INTOLERANCE AND ABD DISTENTION. PT ADMITTED FOR TREATMENT AND EVALUATION OF ABD PAIN. - Past Medical History Past Medical History: Coronary Artery Disease, Hypertension, Anxiety, COPD, Asthma, GERD, Arthritis, CHF - Past Surgical History Surgical History: Abdominal Surgery, Appendectomy, Bowel Resection, Cholecystectomy - Family History Family Medical History: Diabetes Mellitus, Hypertension - Social History Does patient currently use any type of tobacco product: No Have you used tobacco products in the last 12 months: No Type of Tobacco Use: None Does any household member use tobacco: No Alcohol Use: None Drug Use: Prescription Drugs - Medications Home Medications: ketorolac [From Toradol] Allergy (Verified 03/18/18 10:13) nalbuphine [From Nubain] Allergy (Verified 03/18/18 10:13) Penicillins Allergy (Verified 03/18/18 10:13) Sulfa (Sulfonamide Antibiotics) [SULFA] Allergy (Verified 03/18/18 10:13) BETA BLOCKERS Allergy (Uncoded 03/18/18 10:13) CONTINUE taking the following medications alprazolam [Xanax] 1 tab PO TID 03/18/18 [History] cetirizine [Zyrtec] 1 tab PO DAILY 03/18/18 [History] dextromethorphan-guaifenesin [Robitussin Cough-Chest Edinson DM] 10 ml PO QID PRN 03/18/18 [History] donepezil 1 tab PO HS 03/18/18 [History] ferrous sulfate 1 tab PO DAILY 03/18/18 [History] furosemide [Lasix] 1 tab PO BID 03/18/18 [History] gabapentin [Neurontin] 1 tab PO TID 03/18/18 [History] ipratropium-albuterol 1 inh INHALATION Q4H PRN 03/18/18 [History] levocetirizine 1 tab PO HS 03/18/18 [History] magnesium hydroxide [Milk of Magnesia] 30 ml PO BID 03/18/18 [History] montelukast 1 tab PO HS 03/18/18 [History] multivitamin 1 tab PO DAILY 03/18/18 [History] nitroglycerin 1 tab SUBLINGUAL Q5M PRN 03/18/18 [History] oxycodone-acetaminophen [Percocet] 1 tab PO TID PRN 03/18/18 [History] pantoprazole [Protonix] 1 tab PO BID 03/18/18 [History] potassium chloride 20 meq PO BID 03/18/18 [History] promethazine 1 tab PO Q6H PRN 03/18/18 [History] ropinirole 1 tab PO HS 03/18/18 [History] spironolactone 1 tab PO DAILY 03/18/18 [History] zolpidem 1 tab PO HS 03/18/18 [History] - Review of Systems Constitutional: Weakness Eyes: No Symptoms Reported ENT: No Symptoms Reported Respiratory: No Symptoms Reported Cardiovascular: No Symptoms Reported Gastrointestinal: Nausea, Vomiting, Abdominal Pain Genitourinary: No Symptoms Reported Musculoskeletal: Back Pain, Leg Pain Skin: No Symptoms Reported Neurological: Weakness - Physical Exam Vital Signs: Temperature 98.8 F Pulse Rate [Right Radial] 90 Pulse Rate 95 Respiratory Rate 16 Blood Pressure [Left Arm] 120/63 Blood Pressure [Right Arm] 154/70 Blood Pressure 159/95 O2 Sat by Pulse Oximetry 91 Oriented: Normal Eyes: Normal Ear: Normal Nose: Normal Throat: Normal Respiratory: RLL Diminished, LLL Diminished Cardiovascular: Tachycardia, Edema : Normal Auscultation: Bowel Sounds: Decreased Tenderness: Diffuse Skin: Decreased [place]urg[place], Bruising Musculoskeletal: Back:Lumbar, Swelling, Motor Deficit, Sensory Deficit Psychiatric: Anxiety Affect: Anxious Speech Pattern: Clear, Appropriate - Assessment/Plan (1) Abdominal pain Status: Acute Plan: ADMIT, N/V CONTROL, PAIN CONTROL. VERIFY HOME MEDS, CT ABD PELVIS ON ADMISSION. BP CONTROL, NG TUBE AT LIS FOR INTRACTABLE VOMITING. RESP THERAPY, SUPPLEMENTAL O2 (2) Respiratory distress Status: Acute (3) Pancreatic abnormality Status: Acute (4) Elevated liver enzymes Status: Acute (5) Chronic kidney disease (CKD) Qualifiers: Chronic kidney disease stage: stage 3 (moderate) Qualified Code(s): N18.3 - Chronic kidney disease, stage 3 (moderate) Status: Chronic (6) Hypertension Status: Chronic (7) COPD (chronic obstructive pulmonary disease) Qualifiers: COPD type: COPD with acute exacerbation Qualified Code(s): J44.1 - Chronic obstructive pulmonary disease with (acute) exacerbation Status: Acute (8) CHF (congestive heart failure) Status: Chronic - Allergies Allergies/Adverse Reactions: Allergies Allergy/AdvReac Type Severity Reaction Status Date / Time ketorolac [From Toradol] Allergy Verified 03/18/18 10:13 nalbuphine [From Nubain] Allergy Verified 03/18/18 10:13 Penicillins Allergy Verified 03/18/18 10:13 Sulfa (Sulfonamide Allergy Verified 03/18/18 10:13 Antibiotics) [SULFA] BETA BLOCKERS Allergy Uncoded 03/18/18 10:13
[2018-03-19] MEDS: PROTONIX INJ 40 MG VIAL IVP SCH ×2 (11:10→21:17)
[2018-03-19] MEDS ORDERED: ROBITUSSIN DM PO PRN (12:11)
[2018-03-19] MEDS: HEMOCYTE-PLUS PO SCH (12:32)
[2018-03-19] MEDS: TAB-A-VITE PO SCH (12:32)
[2018-03-19] MEDS: ZyrTEC TAB 10 MG PO SCH (12:32)
[2018-03-19] MEDS: NITROSTAT SL PRN ×4 (12:45→22:15)
[2018-03-19] MEDS: XANAX PO SCH ×2 (13:08→21:08)
[2018-03-19 14:02] LABS: CREATINE KINASE 25 Units/L (26-192); CREATINE KINASE MB < 1.0 ng/mL (0-4.0); TROPONIN I < 0.02 ng/mL (0-1.5)
[2018-03-19] MEDS: ALDACTONE TAB 25 MG PO SCH (14:06)
[2018-03-19] MEDS: LASIX PO SCH (14:06)
[2018-03-19] MEDS: VALIUM INJ IVP PRN (14:06)
[2018-03-19] MEDS: NEURONTIN TAB 600 MG PO SCH ×2 (14:07→21:05)
--- NOTE | 2018-03-19 16:40 | DR.CONSULT ---
Consult - Consultation for Day of: Date: 03/19/18 - Chief Complaint Chief Complaint: Patient referred for intractable N/V/D and abdominal pain. Patient with complaints of nausea, vomiting, upper abdominal pain and diarrhea. - History of Present Illness History of Present Illness: Patient is s 63yo female who was referred for intractable N/V/D and abdominal pain. Patient with complaints of nausea, vomiting that has been goign on for 3 days last vomited this am, upper abdominal pain and diarrhea since saturday. She denies dysphagia, dyspepsia, constipation, melena and hematochezia. Last EGD was 02/04/18 which showed moderate gastritis with a few erosions, mild distal esophagitis. Abdomen and pelvis CT showed Enlargement of the tail and proximal body of the pancreas but with resolution of the previously noted cystic change. Underlying neoplasm still cannot be entirely excluded and MRI of the pancreas with and without contrast is recommended for further evaluation. Hepatomegaly with diffuse fatty infiltrate. Amylase and lipase WNL. - Past Medical History Past Medical History: Coronary Artery Disease, Hypertension, Anxiety, COPD, Asthma, GERD, Arthritis, CHF - Past Surgical History Surgical History: Abdominal Surgery, Appendectomy, Bowel Resection, Cholecystectomy - Family History Family Medical History: Diabetes Mellitus, Hypertension - Social History Does patient currently use any type of tobacco product: No Have you used tobacco products in the last 12 months: No Type of Tobacco Use: None Does any household member use tobacco: No Alcohol Use: None Drug Use: Prescription Drugs - Medications Home Medications: ketorolac [From Toradol] Allergy (Verified 03/18/18 10:13) nalbuphine [From Nubain] Allergy (Verified 03/18/18 10:13) Penicillins Allergy (Verified 03/18/18 10:13) Sulfa (Sulfonamide Antibiotics) [SULFA] Allergy (Verified 03/18/18 10:13) BETA BLOCKERS Allergy (Uncoded 03/18/18 10:13) CONTINUE taking the following medications alprazolam [Xanax] 1 tab PO TID 03/18/18 [History] cetirizine [Zyrtec] 1 tab PO DAILY 03/18/18 [History] dextromethorphan-guaifenesin [Robitussin Cough-Chest Edinson DM] 10 ml PO QID PRN 03/18/18 [History] donepezil 1 tab PO HS 03/18/18 [History] ferrous sulfate 1 tab PO DAILY 03/18/18 [History] furosemide [Lasix] 1 tab PO BID 03/18/18 [History] gabapentin [Neurontin] 1 tab PO TID 03/18/18 [History] ipratropium-albuterol 1 inh INHALATION Q4H PRN 03/18/18 [History] levocetirizine 1 tab PO HS 03/18/18 [History] magnesium hydroxide [Milk of Magnesia] 30 ml PO BID 03/18/18 [History] montelukast 1 tab PO HS 03/18/18 [History] multivitamin 1 tab PO DAILY 03/18/18 [History] nitroglycerin 1 tab SUBLINGUAL Q5M PRN 03/18/18 [History] oxycodone-acetaminophen [Percocet] 1 tab PO TID PRN 03/18/18 [History] pantoprazole [Protonix] 1 tab PO BID 03/18/18 [History] potassium chloride 20 meq PO BID 03/18/18 [History] promethazine 1 tab PO Q6H PRN 03/18/18 [History] ropinirole 1 tab PO HS 03/18/18 [History] spironolactone 1 tab PO DAILY 03/18/18 [History] zolpidem 1 tab PO HS 03/18/18 [History] - Review of Systems Gastrointestinal: Nausea, Vomiting, Abdominal Pain (upper abd), Diarrhea. denies: Constipation, Melena, Hematochezia - Physical Exam Vital Signs: Temperature 97.8 F Pulse Rate [Right Radial] 99 Pulse Rate 95 Respiratory Rate 20 Blood Pressure [Left Arm] 120/63 Blood Pressure [Right Arm] 124/58 Blood Pressure 159/95 O2 Sat by Pulse Oximetry 94 Oriented: Normal Eyes: Normal Ear: Normal Nose: Normal Throat: Normal Respiratory: Clear Throughout Cardiovascular: Normal : Normal Auscultation: Bowel Sounds: Normal Palpation: Normal. negative: Spleen Enlarged, Liver Enlarged, Mass Pulsatile Tenderness: RUQ, LUQ, Epigastric Skin: Normal Musculoskeletal: Normal Psychiatric: Normal Mood Description: Calm Affect: Normal Speech Pattern: Clear - Plan Plan: Assessment. 1. Likely resolved pancreatitis with resolution of pseudocyst r/o malignancy. 2. N/V, abdominal pain. Plan. 1. Will need referral for Endoscopic US. 2. IV Protonix, gastric empyting study. Plan reviewed with Dr. sutton - Allergies Allergies/Adverse Reactions: Allergies Allergy/AdvReac Type Severity Reaction Status Date / Time ketorolac [From Toradol] Allergy Verified 03/18/18 10:13 nalbuphine [From Nubain] Allergy Verified 03/18/18 10:13 Penicillins Allergy Verified 03/18/18 10:13 Sulfa (Sulfonamide Allergy Verified 03/18/18 10:13 Antibiotics) [SULFA] BETA BLOCKERS Allergy Uncoded 03/18/18 10:13
[2018-03-19] MEDS: ZOFRAN INJ 4 MG VIAL IVP PRN (21:00)
[2018-03-19] MEDS: ARICEPT TAB 10 MG PO SCH (21:04)
[2018-03-19] MEDS: AMBIEN PO SCH (21:06)
[2018-03-19] MEDS: COLACE CAP 100 MG PO SCH (21:07)
[2018-03-19] MEDS: REQUIP PO SCH (21:07)
[2018-03-19] MEDS: SINGULAIR TAB 10 MG PO SCH (21:08)
[2018-03-19] MEDS: K-DUR TAB 20 MEQ PO SCH (21:16)
[2018-03-19 23:03] LABS: CKMB % 6.7 % (<4); CREATINE KINASE 15 Units/L (26-192); CREATINE KINASE MB < 1.0 ng/mL (0-4.0); TROPONIN I < 0.02 ng/mL (0-1.5)
[2018-03-20] MEDS: NS 1000 ML 1,000 ML IV SCH ×3 (05:07→17:19)
[2018-03-20 05:33] LABS: CALCIUM 11.3 mg/dL (8.5-10.1); CARBON DIOXIDE 29.6 mmol/L (21-32); COR CA(FOR HYPOALB) 12.1 mg/dL (8.5-10.1); CREATININE 1.4 mg/dL (0.55-1.02); TOTAL PROTEIN 7.5 g/dL (6.4-8.2)
[2018-03-20] MEDS: NEURONTIN TAB 600 MG PO SCH ×3 (05:36→21:33)
[2018-03-20] MEDS: XANAX PO SCH ×3 (05:36→21:33)
[2018-03-20 05:43] LABS: BASOPHILS # (AUTO) 0.1 X10^3/uL (0.0-0.1); BASOPHILS % (AUTO) 0.9 % (0.2-1.0); HEMATOCRIT 30.3 % (36.0-47.0); LYMPHOCYTES # (AUTO) 0.6 X10^3/uL (1.3-2.9); MEAN CORPUSCULAR HEMOGLOBIN 30.1 pg (27.0-34.0); MEAN CORPUSCULAR HGB CONC 33.1 g/dL (33.0-35.0); MEAN CORPUSCULAR VOLUME 90.7 fL (80.0-100.0); MEAN PLATELET VOLUME 9.3 fL (7.4-11.0); MONOCYTES # (AUTO) 0.2 x10^3/uL (0.3-0.8); MONOCYTES % (AUTO) 2.9 % (0.0-13.0); NEUTROPHILS # (AUTO) 5.7 x10^3/uL (2.2-4.8); NEUTROPHILS % (AUTO) 87.2 % (42.0-75.0); RED BLOOD COUNT 3.34 X10^6/uL (3.5-5.4); RED CELL DISTRIBUTION WIDTH 15.7 % (11.6-16.5)
[2018-03-20 06:07] LABS: PLATELET COUNT 241 X10^3/uL (150.0-450.0)
[2018-03-20 06:08] LABS: PLATELET MORPHOLOGY COMMENT NORMAL (NORMAL); WHITE BLOOD COUNT 6.5 X10^3/uL (3.6-10.0)
[2018-03-20] MEDS: PROTONIX INJ 40 MG VIAL IVP SCH ×2 (08:28→21:32)
[2018-03-20] MEDS: ALDACTONE TAB 25 MG PO SCH (08:28)
[2018-03-20] MEDS: TAB-A-VITE PO SCH (08:28)
[2018-03-20] MEDS: HEMOCYTE-PLUS PO SCH (08:28)
[2018-03-20] MEDS: LASIX PO SCH (08:29)
[2018-03-20] MEDS: PERCOCET TAB 5/325 MG PO PRN ×3 (08:29→21:34)
[2018-03-20] MEDS: ZyrTEC TAB 10 MG PO SCH (08:29)
[2018-03-20] MEDS: MILK OF MAGNESIA PO SCH (08:29)
[2018-03-20] MEDS: K-DUR TAB 20 MEQ PO SCH ×2 (08:29→21:31)
[2018-03-20] MEDS: DUONEB 0.5 MG/3 MG NEB PRN ×2 (09:30→16:20)
[2018-03-20] MEDS: VALIUM INJ IVP PRN (12:17)
--- NOTE | 2018-03-20 14:42 | NM ---
HISTORY: Abdominal pain. Clinical concern for gastroparesis/gastric emptying disorder. Nuclear medicine gastric emptying study. Findings: For the purposes of this gastric emptying study, 0.5 mCi of technetium 99m colloid was labeled to brooks d and administered to the patient, orally. The patient was imaged in the supine position, and images were obtained sequentially to evaluate gastric imaging. Regions of interest were selected over the st omach as well as over appropriate background regions prior to calculating the gastric emptying half-t arvind curve. Imaging was taken out to 90 minutes. The gastric emptying half time for this procedure, as calculated, was within normal limits (as the normal half-life ranges between 45 and 110 minutes, dep ending on the specific nuclear medicine laboratory standards). No radiotracer gastroesophageal reflux was identified on this examination. IMPRESSION: Normal gastric emptying half-time of 30 minutes. Reported By:
[2018-03-20] MEDS: PHENERGAN INJ 25 MG IV PRN (15:39)
[2018-03-20] MEDS: ZOFRAN INJ 4 MG VIAL IVP PRN (18:42)
[2018-03-20] MEDS: ARICEPT TAB 10 MG PO SCH (21:31)
[2018-03-20] MEDS: AMBIEN PO SCH (21:31)
[2018-03-20] MEDS: COLACE CAP 100 MG PO SCH (21:31)
[2018-03-20] MEDS: SINGULAIR TAB 10 MG PO SCH (21:33)
[2018-03-20] MEDS: REQUIP PO SCH (21:33)
[2018-03-21 05:25] LABS: BASOPHILS # (AUTO) 0.1 X10^3/uL (0.0-0.1); BASOPHILS % (AUTO) 1.1 % (0.2-1.0); EOSINOPHILS # (AUTO) 0.1 x10^3/uL (0.0-0.2); EOSINOPHILS % (AUTO) 2.1 % (0.9-2.9); HEMATOCRIT 29.2 % (36.0-47.0); HEMOGLOBIN 9.7 g/dL (12.0-16.0); LYMPHOCYTES # (AUTO) 1.3 X10^3/uL (1.3-2.9); LYMPHOCYTES % (AUTO) 23.6 % (21.0-51.0); MEAN CORPUSCULAR HEMOGLOBIN 29.9 pg (27.0-34.0); MEAN CORPUSCULAR HGB CONC 33.3 g/dL (33.0-35.0); MEAN CORPUSCULAR VOLUME 89.8 fL (80.0-100.0); MEAN PLATELET VOLUME 8.2 fL (7.4-11.0); MONOCYTES # (AUTO) 0.5 x10^3/uL (0.3-0.8); MONOCYTES % (AUTO) 8.3 % (0.0-13.0); NEUTROPHILS # (AUTO) 3.7 x10^3/uL (2.2-4.8); NEUTROPHILS % (AUTO) 64.9 % (42.0-75.0); PLATELET COUNT 277 X10^3/uL (150.0-450.0); RED BLOOD COUNT 3.25 X10^6/uL (3.5-5.4); RED CELL DISTRIBUTION WIDTH 15.6 % (11.6-16.5); WHITE BLOOD COUNT 5.6 X10^3/uL (3.6-10.0)
[2018-03-21 05:38] LABS: ALANINE AMINOTRANSFERASE 35 Units/L (12-78); ALBUMIN 2.7 g/dL (3.4-5.0); ALKALINE PHOSPHATASE 95 Units/L (46-116); ASPARTATE AMINO TRANSFERASE 32 Units/L (15-37); BLOOD UREA NITROGEN 21 mg/dL (7-18); CARBON DIOXIDE 28.2 mmol/L (21-32); CHLORIDE 103 mmol/L (98-107); CREATININE 1.52 mg/dL (0.55-1.02); SODIUM 137 mmol/L (136-145); TOTAL PROTEIN 6.6 g/dL (6.4-8.2); eGFR NON BLACK RACES 36 (>60)
[2018-03-21] MEDS ORDERED: POTASSIUM CHL 60 MEQ/NS 0.45% 500 ML IV PRN (05:45)
[2018-03-21] MEDS ORDERED: POTASSIUM CHL 40 MEQ/NS 0.45% 500 ML IV PRN (05:45)
[2018-03-21] MEDS ORDERED: K-RIDER 10 MEQ/NS 100 ML 10 MEQ/100 ML BAG IV PRN (05:45)
[2018-03-21] MEDS ORDERED: K-LYTE EFFERVESCENT PO PRN (05:45)
[2018-03-21] MEDS ORDERED: POTASSIUM CHLORIDE LIQ 20 MEQ UDC PO PRN (05:45)
[2018-03-21] MEDS: NS 1000 ML 1,000 ML IV SCH ×4 (06:00→17:59)
[2018-03-21] MEDS: NEURONTIN TAB 600 MG PO SCH ×3 (06:01→21:32)
[2018-03-21] MEDS: XANAX PO SCH ×3 (06:01→21:32)
[2018-03-21] MEDS: PHENERGAN INJ 25 MG IV PRN ×3 (06:12→20:36)
[2018-03-21] MEDS: DUONEB 0.5 MG/3 MG NEB PRN ×4 (07:15→20:54)
[2018-03-21] MEDS: LASIX PO SCH (08:55)
[2018-03-21] MEDS: HEMOCYTE-PLUS PO SCH (08:55)
[2018-03-21] MEDS: K-DUR TAB 20 MEQ PO SCH ×2 (08:55→20:35)
[2018-03-21] MEDS: PERCOCET TAB 5/325 MG PO PRN ×2 (08:55→20:35)
[2018-03-21] MEDS: PROTONIX INJ 40 MG VIAL IVP SCH ×2 (08:55→20:33)
[2018-03-21] MEDS: ZyrTEC TAB 10 MG PO SCH (08:56)
[2018-03-21] MEDS: ALDACTONE TAB 25 MG PO SCH (08:56)
[2018-03-21] MEDS: TAB-A-VITE PO SCH (08:56)
--- NOTE | 2018-03-21 14:34 | PCM.PROG ---
Progress Note - Progress Note for Day of Date of Exam: 03/20/18 - Subjective Subjective: 63 WF ER ADMISSION AFER PRESENTING WITH CO ABDOMINAL PAIN N/V ABDOMINAL DISTENTION. PT HAD CT ABD PELVIS IN ER. PT LABS REVEALED HYPERCALCEMIA. PT HAS PMH OF RESP FAILURE, HTN, MO, CAD, CHF, OA, PANCREATIC MASS, GERD. PT WAS RECENTLY D/C FROM [facility] ONE WEEK AGO. PT HAS INCREASED FOOD INTOLERANCE AND ABD DISTENTION WITH N/V. PT SEEN BY DR DE SANTIAGO, GASTRIC EMPTYING STUDY ORDERED THIS AM. PT NPO THIS AM FOR TEST. PT DENIES VOMITING THIS AM. - Past Medical Family Social History Past Med/Fam/Surg Hx: No changes since H&P Allergies: Allergies ketorolac [From Toradol] Allergy (Verified 03/18/18 10:13) nalbuphine [From Nubain] Allergy (Verified 03/18/18 10:13) Penicillins Allergy (Verified 03/18/18 10:13) Sulfa (Sulfonamide Antibiotics) [SULFA] Allergy (Verified 03/18/18 10:13) BETA BLOCKERS Allergy (Uncoded 03/18/18 10:13) - Review of Systems ROS: No change since H&P - Vital Signs and I&O's Vital Signs: Temperature 98.2 F Pulse Rate [Right Radial] 77 Pulse Rate 104 Respiratory Rate 20 Blood Pressure [Left Arm] 109/52 Blood Pressure [Right Arm] 102/55 Blood Pressure 159/95 O2 Sat by Pulse Oximetry 95 Intake and Output: Intake & Output 03/19/18 03/20/18 03/21/18 03/22/18 11:59 11:59 11:59 11:59 Intake Total 540 / 540 900 / 900 1840 / 1840 480 / 480 Balance 540 / 540 900 / 900 1840 / 1840 480 / 480 - Physical Exam Oriented: Normal Eyes: Normal Ear: Normal Nose: Normal Throat: Normal Respiratory: Diminished Cardiovascular: Normal : Normal Auscultation: Bowel Sounds: Normal Tenderness: RUQ, LUQ, Epigastric Skin: Normal Musculoskeletal: Normal Psychiatric: Normal Mood Description: Calm Affect: Normal Speech Pattern: Clear, Appropriate - Laboratory and Diagnostics Result Diagrams: 03/21/18 04:50 03/21/18 13:05 Labs: Laboratory WBC 5.6 X10^3/uL (3.6-10.0) 03/21/18 04:50 RBC 3.25 X10^6/uL (3.5-5.4) L 03/21/18 04:50 Hgb 9.7 g/dL (12.0-16.0) L 03/21/18 04:50 Hct 29.2 % (36.0-47.0) L 03/21/18 04:50 MCV 89.8 fL (80.0-100.0) 03/21/18 04:50 MCH 29.9 pg (27.0-34.0) 03/21/18 04:50 MCHC 33.3 g/dL (33.0-35.0) 03/21/18 04:50 RDW 15.6 % (11.6-16.5) 03/21/18 04:50 Plt Count 277 X10^3/uL (150.0-450.0) 03/21/18 04:50 Plt Count Comment Adequate (ADEQUATE) 03/20/18 04:51 MPV 8.2 fL (7.4-11.0) 03/21/18 04:50 Neut % (Auto) 64.9 % (42.0-75.0) 03/21/18 04:50 Lymph % (Auto) 23.6 % (21.0-51.0) 03/21/18 04:50 [place] % (Auto) 8.3 % (0.0-13.0) 03/21/18 04:50 Eos % (Auto) 2.1 % (0.9-2.9) 03/21/18 04:50 Baso % (Auto) 1.1 % (0.2-1.0) H 03/21/18 04:50 Neut # (Auto) 3.7 x10^3/uL (2.2-4.8) 03/21/18 04:50 Lymph # (Auto) 1.3 X10^3/uL (1.3-2.9) 03/21/18 04:50 [place] # (Auto) 0.5 x10^3/uL (0.3-0.8) 03/21/18 04:50 Eos # (Auto) 0.1 x10^3/uL (0.0-0.2) 03/21/18 04:50 Baso # (Auto) 0.1 X10^3/uL (0.0-0.1) 03/21/18 04:50 Absolute Nucleated RBC 0.1 /100WBC 03/21/18 04:50 Plt Clumps, EDTA Few 03/20/18 04:51 Plt Morphology Comment Normal (NORMAL) 03/20/18 04:51 RBC Morphology Normal (NORMAL) 03/20/18 04:51 Sodium 137 mmol/L (136-145) 03/21/18 04:50 Corrected Sodium TNP 03/21/18 04:50 Potassium 3.9 mmol/L (3.5-5.1) 03/21/18 13:05 Chloride 103 mmol/L (98-107) 03/21/18 04:50 Carbon Dioxide 28.2 mmol/L (21-32) 03/21/18 04:50 BUN 21 mg/dL (7-18) H 03/21/18 04:50 Creatinine 1.52 mg/dL (0.55-1.02) H 03/21/18 04:50 Est GFR (MDRD) Af Amer 44 (>60) L 03/21/18 04:50 Est GFR (MDRD) Non-Af 36 (>60) L 03/21/18 04:50 Glucose 89 mg/dL (65-99) 03/21/18 04:50 Calcium 10.0 mg/dL (8.5-10.1) 03/21/18 04:50 Corrected Calcium 11.0 mg/dL (8.5-10.1) H 03/21/18 04:50 Magnesium 1.9 mg/dL (1.7-2.9) 03/21/18 04:50 Total Bilirubin 0.30 mg/dL (0.2-1.0) 03/21/18 04:50 AST 32 Units/L (15-37) 03/21/18 04:50 ALT 35 Units/L (12-78) 03/21/18 04:50 Alkaline Phosphatase 95 Units/L (46-116) 03/21/18 04:50 Creatine Kinase 15 Units/L (26-192) L 03/19/18 22:30 CK-MB (CK-2) < 1.0 ng/mL (0-4.0) 03/19/18 22:30 CK/CKMB % Calc 6.7 % (<4) 03/19/18 22:30 Troponin I < 0.02 ng/mL (0-1.5) 03/19/18 22:30 Total Protein 6.6 g/dL (6.4-8.2) 03/21/18 04:50 Albumin 2.7 g/dL (3.4-5.0) L 03/21/18 04:50 Globulin 3.9 g/dL (2.5-4.5) 03/21/18 04:50 Albumin/Globulin Ratio 0.7 Ratio (1.1-2.1) L 03/21/18 04:50 Amylase 39 Units/L (25-115) 03/18/18 07:50 Lipase 182 Units/L (73-393) 03/18/18 07:50 Specimen Type Catherized urine 03/18/18 14:53 Urine Color Yellow (YELLOW) 03/18/18 14:53 Urine Appearance Slightly hazy (CLEAR) 03/18/18 14:53 Urine pH 5.0 (5.0 - 8.0) 03/18/18 14:53 Ur Specific [place] 1.025 (1.000-1.030) 03/18/18 14:53 Urine Protein 2+ (NEGATIVE) 03/18/18 14:53 Urine Glucose (UA) Negative (NEGATIVE) 03/18/18 14:53 Urine Ketones 2+ (NEGATIVE) 03/18/18 14:53 Urine Occult Blood 2+ (NEGATIVE) 03/18/18 14:53 Urine Nitrite Negative (NEGATIVE) 03/18/18 14:53 Urine Bilirubin Negative (NEGATIVE) 03/18/18 14:53 Urine Urobilinogen Normal (NORMAL) 03/18/18 14:53 Ur Leukocyte Esterase Negative (NEGATIVE) 03/18/18 14:53 Urine RBC 3-5 /HPF (NONE SEEN) 03/18/18 14:53 Urine WBC None seen /HPF (NONE SEEN) 03/18/18 14:53 Ur Squamous Epith Cells Rare /HPF (NEGATIVE) 03/18/18 14:53 Amorphous Sediment 2+ /HPF (NEGATIVE) 03/18/18 14:53 Urine Bacteria Trace /HPF (NEGATIVE) 03/18/18 14:53 Ur Culture Indicated? No/not indicated 03/18/18 14:53 - Plan (1) Abdominal pain Status: Acute Plan: N/V CONTROL, PAIN CONTROL. VERIFY HOME MEDS, CT ABD PELVIS ON ADMISSION. BP CONTROL, NG TUBE AT LIS FOR INTRACTABLE VOMITING. RESP THERAPY, SUPPLEMENTAL O2 (2) Respiratory distress Status: Acute (3) Pancreatic abnormality Status: Acute Plan: FOLLOWED BY DR DE SANTIAGO. OBTAIN RADIOLOGY REPORTS FROM [facility], PT STATES SHE "HAD MRI AT [facility]" (4) Elevated liver enzymes Status: Acute (5) Chronic kidney disease (CKD) Status: Chronic Qualifiers: Chronic kidney disease stage: stage 3 (moderate) Qualified Code(s): N18.3 - Chronic kidney disease, stage 3 (moderate) (6) Hypertension Status: Chronic (7) COPD (chronic obstructive pulmonary disease) Status: Acute Qualifiers: COPD type: COPD with acute exacerbation Qualified Code(s): J44.1 - Chronic obstructive pulmonary disease with (acute) exacerbation (8) CHF (congestive heart failure) Status: Chronic
--- NOTE | 2018-03-21 14:43 | PCM.DCPLAN ---
Discharge Summary - Admission Date Date of Admission: 03/18/18 - Discharge Date Discharge Date: 03/21/18 - Admission Diagnoses (1) Abdominal pain Status: Acute (2) Pancreatic abnormality Status: Acute (3) Elevated liver enzymes Status: Acute (4) Chronic kidney disease (CKD) Status: Chronic (5) Hypertension Status: Chronic (6) COPD (chronic obstructive pulmonary disease) Status: Acute (7) CHF (congestive heart failure) Status: Chronic - Discharge Diagnoses Discharge Diagnosis: SAME ADMISSION - Discharge Medications Discharge Medications: Home Medication List alprazolam [Xanax] 1 tab PO TID 03/18/18 [History] cetirizine [Zyrtec] 1 tab PO DAILY 03/18/18 [History] dextromethorphan-guaifenesin [Robitussin Cough-Chest Edinson DM] 10 ml PO QID PRN 03/18/18 [History] donepezil 1 tab PO HS 03/18/18 [History] ferrous sulfate 1 tab PO DAILY 03/18/18 [History] furosemide [Lasix] 1 tab PO BID 03/18/18 [History] gabapentin [Neurontin] 1 tab PO TID 03/18/18 [History] ipratropium-albuterol 1 inh INHALATION Q4H PRN 03/18/18 [History] levocetirizine 1 tab PO HS 03/18/18 [History] magnesium hydroxide [Milk of Magnesia] 30 ml PO BID 03/18/18 [History] montelukast 1 tab PO HS 03/18/18 [History] multivitamin 1 tab PO DAILY 03/18/18 [History] nitroglycerin 1 tab SUBLINGUAL Q5M PRN 03/18/18 [History] oxycodone-acetaminophen [Percocet] 1 tab PO TID PRN 03/18/18 [History] pantoprazole [Protonix] 1 tab PO BID 03/18/18 [History] potassium chloride 20 meq PO BID 03/18/18 [History] promethazine 1 tab PO Q6H PRN 03/18/18 [History] ropinirole 1 tab PO HS 03/18/18 [History] spironolactone 1 tab PO DAILY 03/18/18 [History] zolpidem 1 tab PO HS 03/18/18 [History] Prescriptions: - Hospital Course Vital Signs: Temperature 98.2 F Pulse Rate [Right Radial] 77 Pulse Rate 104 Respiratory Rate 20 Blood Pressure [Left Arm] 109/52 Blood Pressure [Right Arm] 102/55 Blood Pressure 159/95 O2 Sat by Pulse Oximetry 95 Latest Lab Results: Laboratory Last Values WBC 5.6 X10^3/uL (3.6-10.0) 03/21/18 04:50 RBC 3.25 X10^6/uL (3.5-5.4) L 03/21/18 04:50 Hgb 9.7 g/dL (12.0-16.0) L 03/21/18 04:50 Hct 29.2 % (36.0-47.0) L 03/21/18 04:50 MCV 89.8 fL (80.0-100.0) 03/21/18 04:50 MCH 29.9 pg (27.0-34.0) 03/21/18 04:50 MCHC 33.3 g/dL (33.0-35.0) 03/21/18 04:50 RDW 15.6 % (11.6-16.5) 03/21/18 04:50 Plt Count 277 X10^3/uL (150.0-450.0) 03/21/18 04:50 Plt Count Comment Adequate (ADEQUATE) 03/20/18 04:51 MPV 8.2 fL (7.4-11.0) 03/21/18 04:50 Neut % (Auto) 64.9 % (42.0-75.0) 03/21/18 04:50 Lymph % (Auto) 23.6 % (21.0-51.0) 03/21/18 04:50 [place] % (Auto) 8.3 % (0.0-13.0) 03/21/18 04:50 Eos % (Auto) 2.1 % (0.9-2.9) 03/21/18 04:50 Baso % (Auto) 1.1 % (0.2-1.0) H 03/21/18 04:50 Neut # (Auto) 3.7 x10^3/uL (2.2-4.8) 03/21/18 04:50 Lymph # (Auto) 1.3 X10^3/uL (1.3-2.9) 03/21/18 04:50 [place] # (Auto) 0.5 x10^3/uL (0.3-0.8) 03/21/18 04:50 Eos # (Auto) 0.1 x10^3/uL (0.0-0.2) 03/21/18 04:50 Baso # (Auto) 0.1 X10^3/uL (0.0-0.1) 03/21/18 04:50 Absolute Nucleated RBC 0.1 /100WBC 03/21/18 04:50 Plt Clumps, EDTA Few 03/20/18 04:51 Plt Morphology Comment Normal (NORMAL) 03/20/18 04:51 RBC Morphology Normal (NORMAL) 03/20/18 04:51 Sodium 137 mmol/L (136-145) 03/21/18 04:50 Corrected Sodium TNP 03/21/18 04:50 Potassium 3.9 mmol/L (3.5-5.1) 03/21/18 13:05 Chloride 103 mmol/L (98-107) 03/21/18 04:50 Carbon Dioxide 28.2 mmol/L (21-32) 03/21/18 04:50 BUN 21 mg/dL (7-18) H 03/21/18 04:50 Creatinine 1.52 mg/dL (0.55-1.02) H 03/21/18 04:50 Est GFR (MDRD) Af Amer 44 (>60) L 03/21/18 04:50 Est GFR (MDRD) Non-Af 36 (>60) L 03/21/18 04:50 Glucose 89 mg/dL (65-99) 03/21/18 04:50 Calcium 10.0 mg/dL (8.5-10.1) 03/21/18 04:50 Corrected Calcium 11.0 mg/dL (8.5-10.1) H 03/21/18 04:50 Magnesium 1.9 mg/dL (1.7-2.9) 03/21/18 04:50 Total Bilirubin 0.30 mg/dL (0.2-1.0) 03/21/18 04:50 AST 32 Units/L (15-37) 03/21/18 04:50 ALT 35 Units/L (12-78) 03/21/18 04:50 Alkaline Phosphatase 95 Units/L (46-116) 03/21/18 04:50 Creatine Kinase 15 Units/L (26-192) L 03/19/18 22:30 CK-MB (CK-2) < 1.0 ng/mL (0-4.0) 03/19/18 22:30 CK/CKMB % Calc 6.7 % (<4) 03/19/18 22:30 Troponin I < 0.02 ng/mL (0-1.5) 03/19/18 22:30 Total Protein 6.6 g/dL (6.4-8.2) 03/21/18 04:50 Albumin 2.7 g/dL (3.4-5.0) L 03/21/18 04:50 Globulin 3.9 g/dL (2.5-4.5) 03/21/18 04:50 Albumin/Globulin Ratio 0.7 Ratio (1.1-2.1) L 03/21/18 04:50 Amylase 39 Units/L (25-115) 03/18/18 07:50 Lipase 182 Units/L (73-393) 03/18/18 07:50 Specimen Type Catherized urine 03/18/18 14:53 Urine Color Yellow (YELLOW) 03/18/18 14:53 Urine Appearance Slightly hazy (CLEAR) 03/18/18 14:53 Urine pH 5.0 (5.0 - 8.0) 03/18/18 14:53 Ur Specific [place] 1.025 (1.000-1.030) 03/18/18 14:53 Urine Protein 2+ (NEGATIVE) 03/18/18 14:53 Urine Glucose (UA) Negative (NEGATIVE) 03/18/18 14:53 Urine Ketones 2+ (NEGATIVE) 03/18/18 14:53 Urine Occult Blood 2+ (NEGATIVE) 03/18/18 14:53 Urine Nitrite Negative (NEGATIVE) 03/18/18 14:53 Urine Bilirubin Negative (NEGATIVE) 03/18/18 14:53 Urine Urobilinogen Normal (NORMAL) 03/18/18 14:53 Ur Leukocyte Esterase Negative (NEGATIVE) 03/18/18 14:53 Urine RBC 3-5 /HPF (NONE SEEN) 03/18/18 14:53 Urine WBC None seen /HPF (NONE SEEN) 03/18/18 14:53 Ur Squamous Epith Cells Rare /HPF (NEGATIVE) 03/18/18 14:53 Amorphous Sediment 2+ /HPF (NEGATIVE) 03/18/18 14:53 Urine Bacteria Trace /HPF (NEGATIVE) 03/18/18 14:53 Ur Culture Indicated? No/not indicated 03/18/18 14:53 Hospital Course: 63 WF ER ADMISSION AFER PRESENTING WITH CO ABDOMINAL PAIN N/V ABDOMINAL DISTENTION. PT HAD CT ABD PELVIS IN ER. PT LABS REVEALED HYPERCALCEMIA. PT HAS PMH OF RESP FAILURE, HTN, MO, CAD, CHF, OA, PANCREATIC MASS, GERD. PT WAS RECENTLY D/C FROM [facility] ONE WEEK AGO. PT HAS INCREASED FOOD INTOLERANCE AND ABD DISTENTION WITH N/V. PT SEEN BY DR DE SANTIAGO, GASTRIC EMPTYING STUDY NORMAL STUDY. PT HAD NORMAL AMYLASE AND LIPASE. PT DENEIS ANY NAUSEA OR VOMITING THIS AM, HAS TOLERATED GRIT EGGS AND SAUSAGE THIS AM. PT REPORT LOOSE STOOL, HAS HX OF EPISODE OF DIARRHEA RELATED TO DIET FOLLOWING GALLBLADDER REMOVAL "YEARS AGO". PT CHRONIC RESP CONDITION IS STABLE. PT HAD CE AND EKG, STABLE. PLAN TO D/C HOME TO RESUME HOME MEDS, SEE DR DE SANTIAGO AND DR BURNS ON OUTPT BASIS FOR FOLLOW UP ON GERD AND PANCREATIC ABNORMALITY. PT SEE DR MAY FOR HOSPITAL F/U IN ONE WEEK. PT HOME HEALTH RESP CARE AND SOURCE SERVICES AT HOME SEE EMR FOR LABS AND DIAGNOSTICS RESULTS - Discharge Plan Disposition: 06 HOME HEALTH SERVICE Condition: Stable - Follow ups/Referrals Follow ups/Referrals: KADEEM COBIANT [STAFF PHYSICIAN] - TING CHAO [Nurse Practitioner] - 04/01/18 10:00 am - Instructions Instructions: Chronic Obstructive Pulmonary Disease Exacerbation, [id number] , Fall Prevention in the Home, [id number]-[id number], Food Choices for Gastroesophageal Reflux Disease, Adult, Jtcq-[id number], Nausea and Vomiting, Adult, Jlml-[id number], Abdominal Pain, Adult, [id number], Hypertension, [id number], Chronic Kidney Disease, Adult, [id number], Heart Failure, Pyme-at-Ayud, [place] Diet Additional Instructions: BLAND DIET, NO DIARY HIGH FAT, RICH SPICY GREASY FOODS CONTINUE HOME MEDS STOOL STUDIES CONTINUE CARE WITH DR DE SANTIAGO FOR PANCREATIC ABNORMALITY, REFER TO DR BURNS ON OUTPT BASIS CONTINUE RESP THERAPY HOME HEALTH AND PT Forms: Patient Portal
[2018-03-21] MEDS: AMBIEN PO SCH (20:33)
[2018-03-21] MEDS: ARICEPT TAB 10 MG PO SCH (20:33)
[2018-03-21] MEDS: SINGULAIR TAB 10 MG PO SCH (20:34)
[2018-03-21] MEDS: REQUIP PO SCH (20:34)
[2018-03-21] MEDS: COLACE CAP 100 MG PO SCH (20:34)
[2018-03-22] MEDS: ZOFRAN INJ 4 MG VIAL IVP PRN ×4 (00:46→22:12)
[2018-03-22] MEDS ORDERED: DECADRON INJ PRESERVATIVE-FREE IM ONE (03:05)
[2018-03-22] MEDS ORDERED: NS 100 ML IV 100 ML IV ONE (03:05)
[2018-03-22] MEDS ORDERED: ATIVAN INJ 2 MG VIAL ONE (03:06)
[2018-03-22] MEDS: ZOFRAN INJ 4 MG VIAL 16 MG, ATIVAN INJ 2 MG VIAL 1 MG, DECADRON INJ 10 MG in NS 50 ML I... IV PRN (03:30)
[2018-03-22 05:45] LABS: BASOPHILS # (AUTO) 0.1 X10^3/uL (0.0-0.1); BASOPHILS % (AUTO) 1.1 % (0.2-1.0); EOSINOPHILS # (AUTO) 0.4 x10^3/uL (0.0-0.2); EOSINOPHILS % (AUTO) 5.6 % (0.9-2.9); HEMATOCRIT 29.6 % (36.0-47.0); HEMOGLOBIN 9.9 g/dL (12.0-16.0); LYMPHOCYTES # (AUTO) 1.1 X10^3/uL (1.3-2.9); LYMPHOCYTES % (AUTO) 16.5 % (21.0-51.0); MEAN CORPUSCULAR HEMOGLOBIN 30.2 pg (27.0-34.0); MEAN CORPUSCULAR HGB CONC 33.4 g/dL (33.0-35.0); MEAN CORPUSCULAR VOLUME 90.3 fL (80.0-100.0); MEAN PLATELET VOLUME 8.6 fL (7.4-11.0); MONOCYTES # (AUTO) 0.5 x10^3/uL (0.3-0.8); MONOCYTES % (AUTO) 8.2 % (0.0-13.0); NEUTROPHILS # (AUTO) 4.6 x10^3/uL (2.2-4.8); NEUTROPHILS % (AUTO) 68.6 % (42.0-75.0); PLATELET COUNT 210 X10^3/uL (150.0-450.0); RED BLOOD COUNT 3.28 X10^6/uL (3.5-5.4); RED CELL DISTRIBUTION WIDTH 15.9 % (11.6-16.5); WHITE BLOOD COUNT 6.7 X10^3/uL (3.6-10.0)
[2018-03-22 05:55] LABS: ALANINE AMINOTRANSFERASE 41 Units/L (12-78); ALBUMIN 2.5 g/dL (3.4-5.0); ALKALINE PHOSPHATASE 126 Units/L (46-116); ASPARTATE AMINO TRANSFERASE 49 Units/L (15-37); BLOOD UREA NITROGEN 20 mg/dL (7-18); CALCIUM 9.1 mg/dL (8.5-10.1); CARBON DIOXIDE 24.7 mmol/L (21-32); CHLORIDE 104 mmol/L (98-107); COR CA(FOR HYPOALB) 10.3 mg/dL (8.5-10.1); CREATININE 1.31 mg/dL (0.55-1.02); SODIUM 135 mmol/L (136-145); TOTAL PROTEIN 6.3 g/dL (6.4-8.2); eGFR NON BLACK RACES 43 (>60)
[2018-03-22] MEDS: XANAX PO SCH ×3 (06:19→21:01)
[2018-03-22] MEDS: NEURONTIN TAB 600 MG PO SCH ×3 (06:19→21:01)
[2018-03-22] MEDS: TAB-A-VITE PO SCH (08:08)
[2018-03-22] MEDS: ALDACTONE TAB 25 MG PO SCH (08:08)
[2018-03-22] MEDS: ZyrTEC TAB 10 MG PO SCH (08:08)
[2018-03-22] MEDS: LASIX PO SCH (08:09)
[2018-03-22] MEDS: PERCOCET TAB 5/325 MG PO PRN ×3 (08:09→20:37)
[2018-03-22] MEDS: K-DUR TAB 20 MEQ PO SCH ×2 (08:09→20:36)
[2018-03-22] MEDS: PROTONIX INJ 40 MG VIAL IVP SCH ×2 (08:09→20:35)
[2018-03-22] MEDS: HEMOCYTE-PLUS PO SCH (08:09)
[2018-03-22] MEDS: PHENERGAN INJ 25 MG IV PRN (08:10)
[2018-03-22] MEDS: DUONEB 0.5 MG/3 MG NEB PRN ×2 (09:17→20:45)
[2018-03-22] MEDS: NS 1000 ML 1,000 ML IV SCH ×3 (11:00→18:21)
--- NOTE | 2018-03-22 11:07 | PCM.PROG ---
Progress Note - Progress Note for Day of Date of Exam: 03/22/18 - Subjective Subjective: 63 WF ER ADMISSION AFER PRESENTING WITH CO ABDOMINAL PAIN N/V ABDOMINAL DISTENTION. PT HAD CT ABD PELVIS IN ER. PT LABS REVEALED HYPERCALCEMIA. PT HAS PMH OF RESP FAILURE, HTN, MO, CAD, CHF, OA, PANCREATIC MASS, GERD. PT WAS RECENTLY D/C FROM [facility] [place] ONE WEEK AGO. PT HAS INCREASED FOOD INTOLERANCE AND ABD DISTENTION WITH N/V. PT SEEN BY DR DE SANTIAGO, GASTRIC EMPTYING STUDY NORMAL, PT WAS D/C HOME YESTERDAY AFTERNOON AND PRIOR TO DC PT CO ONSER OF WEAKNESS WHILE SITTING ON BED, "BLOOD PRESSURE BOTTOMING OUT" WITH INCREASED SOB. PT FAMILY STATES SHE CANNOT GO HOME THIS WEAK. PT HAD CO DIARRHEA SINCE ADMISSION BUT HAS NOT HAD BM IN 24 HRS, STOOL STUDIES PENDING, WILL DECREASE SEDATIVE PAIN MEDICAITON DUE TO S/E HYPOTENSION. CXR AND EKG X 1 - Past Medical Family Social History Past Med/Fam/Surg Hx: No changes since H&P Allergies: Allergies ketorolac [From Toradol] Allergy (Verified 03/18/18 10:13) nalbuphine [From Nubain] Allergy (Verified 03/18/18 10:13) Penicillins Allergy (Verified 03/18/18 10:13) Sulfa (Sulfonamide Antibiotics) [SULFA] Allergy (Verified 03/18/18 10:13) BETA BLOCKERS Allergy (Uncoded 03/18/18 10:13) - Review of Systems ROS: No change since H&P - Vital Signs and I&O's Vital Signs: Temperature 97.6 F Pulse Rate [Right Radial] 81 Pulse Rate 90 Respiratory Rate 22 Blood Pressure [Left Arm] 108/56 Blood Pressure [Right Arm] 126/60 Blood Pressure 159/95 O2 Sat by Pulse Oximetry 93 Intake and Output: Intake & Output 03/19/18 03/20/18 03/21/18 03/22/18 11:59 11:59 11:59 11:59 Intake Total 540 / 540 900 / 900 1839 Balance 540 / 540 900 / 900 1839 - Physical Exam Oriented: Normal Eyes: Normal Ear: Normal Nose: Normal Throat: Normal Respiratory: Diminished, Wheezes Cardiovascular: Normal : Normal Auscultation: Bowel Sounds: Normal Tenderness: RUQ, LUQ, Epigastric Skin: Normal Musculoskeletal: Normal Psychiatric: Normal Mood Description: Calm Affect: Normal Speech Pattern: Clear, Appropriate - Laboratory and Diagnostics Result Diagrams: 03/22/18 04:35 03/22/18 04:35 Labs: Laboratory WBC 6.7 X10^3/uL (3.6-10.0) 03/22/18 04:35 RBC 3.28 X10^6/uL (3.5-5.4) L 03/22/18 04:35 Hgb 9.9 g/dL (12.0-16.0) L 03/22/18 04:35 Hct 29.6 % (36.0-47.0) L 03/22/18 04:35 MCV 90.3 fL (80.0-100.0) 03/22/18 04:35 MCH 30.2 pg (27.0-34.0) 03/22/18 04:35 MCHC 33.4 g/dL (33.0-35.0) 03/22/18 04:35 RDW 15.9 % (11.6-16.5) 03/22/18 04:35 Plt Count 210 X10^3/uL (150.0-450.0) 03/22/18 04:35 Plt Count Comment Adequate (ADEQUATE) 03/20/18 04:51 MPV 8.6 fL (7.4-11.0) 03/22/18 04:35 Neut % (Auto) 68.6 % (42.0-75.0) 03/22/18 04:35 Lymph % (Auto) 16.5 % (21.0-51.0) L 03/22/18 04:35 [place] % (Auto) 8.2 % (0.0-13.0) 03/22/18 04:35 Eos % (Auto) 5.6 % (0.9-2.9) H 03/22/18 04:35 Baso % (Auto) 1.1 % (0.2-1.0) H 03/22/18 04:35 Neut # (Auto) 4.6 x10^3/uL (2.2-4.8) 03/22/18 04:35 Lymph # (Auto) 1.1 X10^3/uL (1.3-2.9) L 03/22/18 04:35 [place] # (Auto) 0.5 x10^3/uL (0.3-0.8) 03/22/18 04:35 Eos # (Auto) 0.4 x10^3/uL (0.0-0.2) H 03/22/18 04:35 Baso # (Auto) 0.1 X10^3/uL (0.0-0.1) 03/22/18 04:35 Absolute Nucleated RBC 0.2 /100WBC 03/22/18 04:35 Plt Clumps, EDTA Few 03/20/18 04:51 Plt Morphology Comment Normal (NORMAL) 03/20/18 04:51 RBC Morphology Normal (NORMAL) 03/20/18 04:51 Sodium 135 mmol/L (136-145) L 03/22/18 04:35 Corrected Sodium TNP 03/22/18 04:35 Potassium 3.8 mmol/L (3.5-5.1) 03/22/18 04:35 Chloride 104 mmol/L (98-107) 03/22/18 04:35 Carbon Dioxide 24.7 mmol/L (21-32) 03/22/18 04:35 BUN 20 mg/dL (7-18) H 03/22/18 04:35 Creatinine 1.31 mg/dL (0.55-1.02) H 03/22/18 04:35 Est GFR (MDRD) Af Amer 52 (>60) L 03/22/18 04:35 Est GFR (MDRD) Non-Af 43 (>60) L 03/22/18 04:35 Glucose 101 mg/dL (65-99) H 03/22/18 04:35 Calcium 9.1 mg/dL (8.5-10.1) 03/22/18 04:35 Corrected Calcium 10.3 mg/dL (8.5-10.1) H 03/22/18 04:35 Magnesium 1.9 mg/dL (1.7-2.9) 03/21/18 04:50 Total Bilirubin 0.20 mg/dL (0.2-1.0) 03/22/18 04:35 AST 49 Units/L (15-37) H 03/22/18 04:35 ALT 41 Units/L (12-78) 03/22/18 04:35 Alkaline Phosphatase 126 Units/L (46-116) H 03/22/18 04:35 Creatine Kinase 15 Units/L (26-192) L 03/19/18 22:30 CK-MB (CK-2) < 1.0 ng/mL (0-4.0) 03/19/18 22:30 CK/CKMB % Calc 6.7 % (<4) 03/19/18 22:30 Troponin I < 0.02 ng/mL (0-1.5) 03/19/18 22:30 Total Protein 6.3 g/dL (6.4-8.2) L 03/22/18 04:35 Albumin 2.5 g/dL (3.4-5.0) L 03/22/18 04:35 Globulin 3.8 g/dL (2.5-4.5) 03/22/18 04:35 Albumin/Globulin Ratio 0.7 Ratio (1.1-2.1) L 03/22/18 04:35 Amylase 39 Units/L (25-115) 03/18/18 07:50 Lipase 182 Units/L (73-393) 03/18/18 07:50 Specimen Type Catherized urine 03/18/18 14:53 Urine Color Yellow (YELLOW) 03/18/18 14:53 Urine Appearance Slightly hazy (CLEAR) 03/18/18 14:53 Urine pH 5.0 (5.0 - 8.0) 03/18/18 14:53 Ur Specific [place] 1.025 (1.000-1.030) 03/18/18 14:53 Urine Protein 2+ (NEGATIVE) 03/18/18 14:53 Urine Glucose (UA) Negative (NEGATIVE) 03/18/18 14:53 Urine Ketones 2+ (NEGATIVE) 03/18/18 14:53 Urine Occult Blood 2+ (NEGATIVE) 03/18/18 14:53 Urine Nitrite Negative (NEGATIVE) 03/18/18 14:53 Urine Bilirubin Negative (NEGATIVE) 03/18/18 14:53 Urine Urobilinogen Normal (NORMAL) 03/18/18 14:53 Ur Leukocyte Esterase Negative (NEGATIVE) 03/18/18 14:53 Urine RBC 3-5 /HPF (NONE SEEN) 03/18/18 14:53 Urine WBC None seen /HPF (NONE SEEN) 03/18/18 14:53 Ur Squamous Epith Cells Rare /HPF (NEGATIVE) 03/18/18 14:53 Amorphous Sediment 2+ /HPF (NEGATIVE) 03/18/18 14:53 Urine Bacteria Trace /HPF (NEGATIVE) 03/18/18 14:53 Ur Culture Indicated? No/not indicated 03/18/18 14:53 - Plan (1) Abdominal pain Status: Acute Plan: N/V CONTROL, PAIN CONTROL. VERIFY HOME MEDS, CT ABD PELVIS ON ADMISSION. BP CONTROL, NG TUBE AT LIS FOR INTRACTABLE VOMITING. RESP THERAPY, SUPPLEMENTAL O2 (2) Pancreatic abnormality Status: Acute Plan: FOLLOWED BY DR DE SANTIAGO. OBTAIN RADIOLOGY REPORTS FROM [facility], PT STATES SHE "HAD MRI AT [facility]" (3) Elevated liver enzymes Status: Acute (4) Chronic kidney disease (CKD) Status: Chronic Qualifiers: Chronic kidney disease stage: stage 3 (moderate) Qualified Code(s): N18.3 - Chronic kidney disease, stage 3 (moderate) (5) Hypertension Status: Chronic (6) COPD (chronic obstructive pulmonary disease) Status: Acute Qualifiers: COPD type: COPD with acute exacerbation Qualified Code(s): J44.1 - Chronic obstructive pulmonary disease with (acute) exacerbation (7) CHF (congestive heart failure) Status: Chronic (8) Weakness Status: Acute Plan: DECREASE SEDATIVE PAIN MEDICATION, PHYSICAL THERAPY CONSULT. BP MONITORING, EKG
[2018-03-22] MEDS: BUTT CREAM (COMPOUND) TOP PRN (16:08)
[2018-03-22 20:03] LABS: STOOL FOR WBC POSITIVE (NEGATIVE)
[2018-03-22 20:11] LABS: CRYPTOSPORIDIUM PARVUM ANTIGEN NEGATIVE (NEGATIVE); GIARDIA LAMBLIA ANTIGEN NEGATIVE (NEGATIVE)
[2018-03-22] MEDS: COLACE CAP 100 MG PO SCH (20:35)
[2018-03-22] MEDS: REQUIP PO SCH (20:35)
[2018-03-22] MEDS: ARICEPT TAB 10 MG PO SCH (20:36)
[2018-03-22] MEDS: AMBIEN PO SCH (20:36)
[2018-03-22] MEDS: SINGULAIR TAB 10 MG PO SCH (20:36)
[2018-03-22] MEDS: NITROSTAT SL PRN (21:51)
[2018-03-23] MEDS: ZOFRAN INJ 4 MG VIAL IVP PRN (03:15)
[2018-03-23] MEDS: PERCOCET TAB 5/325 MG PO PRN ×2 (03:15→21:21)
[2018-03-23] MEDS: XANAX PO SCH ×3 (05:03→21:20)
[2018-03-23] MEDS: NEURONTIN TAB 600 MG PO SCH ×3 (05:03→21:20)
[2018-03-23 06:02] LABS: BASOPHILS # (AUTO) 0.1 X10^3/uL (0.0-0.1); BASOPHILS % (AUTO) 0.8 % (0.2-1.0); EOSINOPHILS # (AUTO) 0.2 x10^3/uL (0.0-0.2); HEMATOCRIT 31.5 % (36.0-47.0); HEMOGLOBIN 10.6 g/dL (12.0-16.0); LYMPHOCYTES # (AUTO) 1.7 X10^3/uL (1.3-2.9); MEAN CORPUSCULAR HGB CONC 33.8 g/dL (33.0-35.0); MEAN PLATELET VOLUME 8.3 fL (7.4-11.0); MONOCYTES # (AUTO) 0.6 x10^3/uL (0.3-0.8); MONOCYTES % (AUTO) 8.7 % (0.0-13.0); NEUTROPHILS # (AUTO) 4.4 x10^3/uL (2.2-4.8); NEUTROPHILS % (AUTO) 63.5 % (42.0-75.0); PLATELET COUNT 254 X10^3/uL (150.0-450.0); RED BLOOD COUNT 3.54 X10^6/uL (3.5-5.4); RED CELL DISTRIBUTION WIDTH 15.6 % (11.6-16.5); WHITE BLOOD COUNT 6.9 X10^3/uL (3.6-10.0)
[2018-03-23 06:21] LABS: ALANINE AMINOTRANSFERASE 98 Units/L (12-78); ALBUMIN 2.7 g/dL (3.4-5.0); ALKALINE PHOSPHATASE 153 Units/L (46-116); ASPARTATE AMINO TRANSFERASE 113 Units/L (15-37); BLOOD UREA NITROGEN 20 mg/dL (7-18); CALCIUM 9.5 mg/dL (8.5-10.1); CARBON DIOXIDE 30.7 mmol/L (21-32); CHLORIDE 103 mmol/L (98-107); COR CA(FOR HYPOALB) 10.5 mg/dL (8.5-10.1); SODIUM 137 mmol/L (136-145); TOTAL PROTEIN 6.7 g/dL (6.4-8.2); eGFR NON BLACK RACES 48 (>60)
[2018-03-23] MEDS: NS 1000 ML 1,000 ML IV SCH ×2 (06:58→13:16)
[2018-03-23] MEDS: K-DUR TAB 20 MEQ PO SCH ×2 (08:55→21:19)
[2018-03-23] MEDS: LASIX PO SCH (08:55)
[2018-03-23] MEDS: HEMOCYTE-PLUS PO SCH (08:55)
[2018-03-23] MEDS: TAB-A-VITE PO SCH (08:55)
[2018-03-23] MEDS: ALDACTONE TAB 25 MG PO SCH (08:55)
[2018-03-23] MEDS: PROTONIX INJ 40 MG VIAL IVP SCH ×2 (08:56→21:22)
[2018-03-23] MEDS: ZyrTEC TAB 10 MG PO SCH (08:56)
[2018-03-23] MEDS: DUONEB 0.5 MG/3 MG NEB PRN ×2 (12:49→18:34)
[2018-03-23] MEDS: COLACE CAP 100 MG PO SCH (21:19)
[2018-03-23] MEDS: SINGULAIR TAB 10 MG PO SCH (21:21)
[2018-03-23] MEDS: REQUIP PO SCH (21:21)
[2018-03-23] MEDS: AMBIEN PO SCH (21:21)
[2018-03-23] MEDS: ARICEPT TAB 10 MG PO SCH (21:22)
[2018-03-23] MEDS: BUTT CREAM (COMPOUND) TOP PRN (21:25)
[2018-03-23] MEDS: TYLENOL 325 MG TAB PO PRN (23:37)
[2018-03-24] MEDS: DUONEB 0.5 MG/3 MG NEB PRN ×3 (00:15→10:00)
[2018-03-24] MEDS: XANAX PO SCH (05:44)
[2018-03-24] MEDS: NEURONTIN TAB 600 MG PO SCH (05:44)
[2018-03-24 06:21] LABS: BASOPHILS # (AUTO) 0.1 X10^3/uL (0.0-0.1); BASOPHILS % (AUTO) 0.8 % (0.2-1.0); EOSINOPHILS # (AUTO) 0.4 x10^3/uL (0.0-0.2); EOSINOPHILS % (AUTO) 4.7 % (0.9-2.9); HEMATOCRIT 30.1 % (36.0-47.0); HEMOGLOBIN 10.3 g/dL (12.0-16.0); LYMPHOCYTES # (AUTO) 1.7 X10^3/uL (1.3-2.9); LYMPHOCYTES % (AUTO) 22.3 % (21.0-51.0); MEAN CORPUSCULAR HEMOGLOBIN 30.7 pg (27.0-34.0); MEAN CORPUSCULAR HGB CONC 34.1 g/dL (33.0-35.0); MEAN CORPUSCULAR VOLUME 89.9 fL (80.0-100.0); MEAN PLATELET VOLUME 8.9 fL (7.4-11.0); MONOCYTES # (AUTO) 0.5 x10^3/uL (0.3-0.8); MONOCYTES % (AUTO) 6.9 % (0.0-13.0); NEUTROPHILS # (AUTO) 5.1 x10^3/uL (2.2-4.8); NEUTROPHILS % (AUTO) 65.3 % (42.0-75.0); PLATELET COUNT 233 X10^3/uL (150.0-450.0); RED BLOOD COUNT 3.35 X10^6/uL (3.5-5.4); RED CELL DISTRIBUTION WIDTH 15.7 % (11.6-16.5); WHITE BLOOD COUNT 7.8 X10^3/uL (3.6-10.0)
[2018-03-24 06:28] LABS: ALBUMIN 2.5 g/dL (3.4-5.0); CALCIUM 8.5 mg/dL (8.5-10.1); CARBON DIOXIDE 29.3 mmol/L (21-32); COR CA(FOR HYPOALB) 9.7 mg/dL (8.5-10.1); CREATININE 1.29 mg/dL (0.55-1.02); TOTAL PROTEIN 6.1 g/dL (6.4-8.2)
[2018-03-24] MEDS: NS 1000 ML 1,000 ML IV SCH ×2 (07:13→09:50)
[2018-03-24] MEDS: PERCOCET TAB 5/325 MG PO PRN (07:46)
[2018-03-24] MEDS: PROTONIX INJ 40 MG VIAL IVP SCH (08:10)
[2018-03-24] MEDS: TAB-A-VITE PO SCH (08:10)
[2018-03-24] MEDS: ZyrTEC TAB 10 MG PO SCH (08:10)
[2018-03-24] MEDS: LASIX PO SCH (08:10)
[2018-03-24] MEDS: ALDACTONE TAB 25 MG PO SCH (08:10)
[2018-03-24] MEDS: K-DUR TAB 20 MEQ PO SCH (08:11)
[2018-03-24] MEDS: HEMOCYTE-PLUS PO SCH (08:11)
--- NOTE | 2018-03-24 09:00 | PCM.PROG ---
Progress Note - Progress Note for Day of Date of Exam: 03/23/18 - Subjective Subjective: 63 WF ER ADMISSION AFER PRESENTING WITH CO ABDOMINAL PAIN N/V ABDOMINAL DISTENTION. PT HAD CT ABD PELVIS IN ER. PT LABS REVEALED HYPERCALCEMIA. PT HAS PMH OF RESP FAILURE, HTN, MO, CAD, CHF, OA, PANCREATIC MASS, GERD. PT WAS RECENTLY D/C FROM [facility] [place] ONE WEEK AGO. PT HAS INCREASED FOOD INTOLERANCE AND ABD DISTENTION WITH N/V. PT SEEN BY DR DE SANTIAGO, GASTRIC EMPTYING STUDY NORMAL, PT WAS D/C HOME YESTERDAY AFTERNOON AND PRIOR TO DC PT CO ONSER OF WEAKNESS WHILE SITTING ON BED, "BLOOD PRESSURE BOTTOMING OUT" WITH INCREASED SOB. PT FAMILY STATES SHE CANNOT GO HOME THIS WEAK. PT HAD CO DIARRHEA SINCE ADMISSION BUT HAS NOT HAD BM IN 24 HRS, STOOL STUDIES PENDING. BP MUCH IMPROVED THIS AM. PT REPORTS NO NAUSEA, ASKING TO EAT. - Past Medical Family Social History Past Med/Fam/Surg Hx: No changes since H&P Allergies: Allergies ketorolac [From Toradol] Allergy (Verified 03/18/18 10:13) nalbuphine [From Nubain] Allergy (Verified 03/18/18 10:13) Penicillins Allergy (Verified 03/18/18 10:13) Sulfa (Sulfonamide Antibiotics) [SULFA] Allergy (Verified 03/18/18 10:13) BETA BLOCKERS Allergy (Uncoded 03/18/18 10:13) - Review of Systems ROS: No change since H&P - Vital Signs and I&O's Vital Signs: Temperature 97.5 F Pulse Rate [Right Radial] 86 Pulse Rate 99 Respiratory Rate 20 Blood Pressure [Left Arm] 114/57 Blood Pressure [Right Arm] 114/54 Blood Pressure 159/95 O2 Sat by Pulse Oximetry 94 Intake and Output: Intake & Output 03/21/18 03/22/18 03/23/18 03/24/18 11:59 11:59 11:59 11:59 Intake Total 1839 1080 / 1080 3290 / 3290 Balance 1839 1080 / 1080 3290 / 7520 - Physical Exam Oriented: Normal Eyes: Normal Ear: Normal Nose: Normal Throat: Normal Respiratory: Diminished, Wheezes Cardiovascular: Normal : Normal Auscultation: Bowel Sounds: Normal Tenderness: RUQ, LUQ, Epigastric Skin: Normal Musculoskeletal: Back:Lumbar, Motor Deficit, [place]repitance Psychiatric: Normal Mood Description: Calm Affect: Normal Speech Pattern: Clear, Appropriate - Laboratory and Diagnostics Result Diagrams: 03/24/18 04:19 03/24/18 04:19 Labs: 03/22/18 19:35 Stool Stool Culture - Preliminary 03/22/18 19:35 Stool - Final Laboratory WBC 7.8 X10^3/uL (3.6-10.0) 03/24/18 04:19 RBC 3.35 X10^6/uL (3.5-5.4) L 03/24/18 04:19 Hgb 10.3 g/dL (12.0-16.0) L 03/24/18 04:19 Hct 30.1 % (36.0-47.0) L 03/24/18 04:19 MCV 89.9 fL (80.0-100.0) 03/24/18 04:19 MCH 30.7 pg (27.0-34.0) 03/24/18 04:19 MCHC 34.1 g/dL (33.0-35.0) 03/24/18 04:19 RDW 15.7 % (11.6-16.5) 03/24/18 04:19 Plt Count 233 X10^3/uL (150.0-450.0) 03/24/18 04:19 Plt Count Comment Adequate (ADEQUATE) 03/20/18 04:51 MPV 8.9 fL (7.4-11.0) 03/24/18 04:19 Neut % (Auto) 65.3 % (42.0-75.0) 03/24/18 04:19 Lymph % (Auto) 22.3 % (21.0-51.0) 03/24/18 04:19 [place] % (Auto) 6.9 % (0.0-13.0) 03/24/18 04:19 Eos % (Auto) 4.7 % (0.9-2.9) H 03/24/18 04:19 Baso % (Auto) 0.8 % (0.2-1.0) 03/24/18 04:19 Neut # (Auto) 5.1 x10^3/uL (2.2-4.8) H 03/24/18 04:19 Lymph # (Auto) 1.7 X10^3/uL (1.3-2.9) 03/24/18 04:19 [place] # (Auto) 0.5 x10^3/uL (0.3-0.8) 03/24/18 04:19 Eos # (Auto) 0.4 x10^3/uL (0.0-0.2) H 03/24/18 04:19 Baso # (Auto) 0.1 X10^3/uL (0.0-0.1) 03/24/18 04:19 Absolute Nucleated RBC 0.1 /100WBC 03/24/18 04:19 Plt Clumps, EDTA Few 03/20/18 04:51 Plt Morphology Comment Normal (NORMAL) 03/20/18 04:51 RBC Morphology Normal (NORMAL) 03/20/18 04:51 Sodium 134 mmol/L (136-145) L 03/24/18 04:19 Corrected Sodium 135 mmol/L (136-145) L 03/24/18 04:19 Potassium 3.1 mmol/L (3.5-5.1) L 03/24/18 04:19 Chloride 100 mmol/L (98-107) 03/24/18 04:19 Carbon Dioxide 29.3 mmol/L (21-32) 03/24/18 04:19 BUN 18 mg/dL (7-18) 03/24/18 04:19 Creatinine 1.29 mg/dL (0.55-1.02) H 03/24/18 04:19 Est GFR (MDRD) Af Amer 53 (>60) L 03/24/18 04:19 Est GFR (MDRD) Non-Af 44 (>60) L 03/24/18 04:19 Glucose 145 mg/dL (65-99) H 03/24/18 04:19 Calcium 8.5 mg/dL (8.5-10.1) 03/24/18 04:19 Corrected Calcium 9.7 mg/dL (8.5-10.1) 03/24/18 04:19 Magnesium 1.9 mg/dL (1.7-2.9) 03/21/18 04:50 Total Bilirubin 0.30 mg/dL (0.2-1.0) 03/24/18 04:19 AST 73 Units/L (15-37) H 03/24/18 04:19 ALT 87 Units/L (12-78) H 03/24/18 04:19 Alkaline Phosphatase 159 Units/L (46-116) H 03/24/18 04:19 Creatine Kinase 15 Units/L (26-192) L 03/19/18 22:30 CK-MB (CK-2) < 1.0 ng/mL (0-4.0) 03/19/18 22:30 CK/CKMB % Calc 6.7 % (<4) 03/19/18 22:30 Troponin I < 0.02 ng/mL (0-1.5) 03/19/18 22:30 Total Protein 6.1 g/dL (6.4-8.2) L 03/24/18 04:19 Albumin 2.5 g/dL (3.4-5.0) L 03/24/18 04:19 Globulin 3.6 g/dL (2.5-4.5) 03/24/18 04:19 Albumin/Globulin Ratio 0.7 Ratio (1.1-2.1) L 03/24/18 04:19 Amylase 39 Units/L (25-115) 03/18/18 07:50 Lipase 182 Units/L (73-393) 03/18/18 07:50 Specimen Type Catherized urine 03/18/18 14:53 Urine Color Yellow (YELLOW) 03/18/18 14:53 Urine Appearance Slightly hazy (CLEAR) 03/18/18 14:53 Urine pH 5.0 (5.0 - 8.0) 03/18/18 14:53 Ur Specific [place] 1.025 (1.000-1.030) 03/18/18 14:53 Urine Protein 2+ (NEGATIVE) 03/18/18 14:53 Urine Glucose (UA) Negative (NEGATIVE) 03/18/18 14:53 Urine Ketones 2+ (NEGATIVE) 03/18/18 14:53 Urine Occult Blood 2+ (NEGATIVE) 03/18/18 14:53 Urine Nitrite Negative (NEGATIVE) 03/18/18 14:53 Urine Bilirubin Negative (NEGATIVE) 03/18/18 14:53 Urine Urobilinogen Normal (NORMAL) 03/18/18 14:53 Ur Leukocyte Esterase Negative (NEGATIVE) 03/18/18 14:53 Urine RBC 3-5 /HPF (NONE SEEN) 03/18/18 14:53 Urine WBC None seen /HPF (NONE SEEN) 03/18/18 14:53 Ur Squamous Epith Cells Rare /HPF (NEGATIVE) 03/18/18 14:53 Amorphous Sediment 2+ /HPF (NEGATIVE) 03/18/18 14:53 Urine Bacteria Trace /HPF (NEGATIVE) 03/18/18 14:53 Ur Culture Indicated? No/not indicated 03/18/18 14:53 Stool Description 2g,unformed,dk.green 03/22/18 19:35 Stl Occult Blood (IFOB) Negative (NEGATIVE) 03/22/18 19:35 Stool for White Cells Positive (NEGATIVE) A 03/22/18 19:35 Stl C. diff Tox B Gene Negative (NEGATIVE) 03/22/18 09:20 Stl C. diff [id number] Negative (NEGATIVE) 03/22/18 09:20 Cryptosporid parvum Ag Negative (NEGATIVE) 03/22/18 19:35 Giardia lamblia Ag Negative (NEGATIVE) 03/22/18 19:35 - Plan (1) Abdominal pain Status: Acute Plan: N/V CONTROL, PAIN CONTROL. VERIFY HOME MEDS, CT ABD PELVIS ON ADMISSION. BP CONTROL, ADVANCE DIET TO BLAND, NO DAIRY HIGH FAT FRIED GREASY FOODS,. RESP THERAPY, SUPPLEMENTAL O2 (2) Pancreatic abnormality Status: Acute Plan: FOLLOWED BY DR DE SANTIAGO. CT WITH CONTRAST RESULTS FROM [facility] ON CHART. DISCUSSED TRANSFER TO TERITARY CARE FOR POSSIBLE BIOPSY (3) Elevated liver enzymes Status: Acute (4) Chronic kidney disease (CKD) Status: Chronic Qualifiers: Chronic kidney disease stage: stage 3 (moderate) Qualified Code(s): N18.3 - Chronic kidney disease, stage 3 (moderate) (5) Hypertension Status: Chronic (6) COPD (chronic obstructive pulmonary disease) Status: Acute Qualifiers: COPD type: COPD with acute exacerbation Qualified Code(s): J44.1 - Chronic obstructive pulmonary disease with (acute) exacerbation (7) CHF (congestive heart failure) Status: Chronic (8) Weakness Status: Acute Plan: DECREASE SEDATIVE PAIN MEDICATION, PHYSICAL THERAPY CONSULT. BP MONITORING, EKG
[2018-03-24 11:48] VITALS: BP 128/60
--- NOTE | 2018-04-04 04:14 | DR.NAUSEAF ---
HPI Time Seen Time seen: 13:30 Primary Care Physician Primary Care Physician: YADIRA DORADO Complaints Chief Complaint:: PT C/O HAVING N/V/D FOR THE PAST 3 DAYS AND THAT SHE THINKS SHE IS DEHYDRATED AND SHE HAS BEEN VOMITTING UP GREEN STUFF , PT HAS DRY LIPS..BR Source History Provided: Patient Mode of Arrival Mode of Arrival: EMS Timing Onset of Chief Complaint: 03/16/18 Context Recent: None Associated Signs and Symptoms Abdominal Pain Quality: Cramping and Sharp PMH PMH Past Medical History: Yes Past Medical History: Anxiety, Arthritis, Asthma, CHF, COPD, Coronary Artery Disease, GERD and Hypertension Past Surgical History: Yes Surgical History: Abdominal Surgery, Appendectomy, Bowel Resection and Cholecystectomy Family History History of Family Medical Conditions: Yes Family Medical History: Diabetes Mellitus and Hypertension Social History Does patient currently use any type of tobacco product: No Have you used tobacco products in the last 12 months: No Type of Tobacco Use: None Does any household member use tobacco: No Alcohol Use: None Do you use any recreational Drugs:: No Lives With: Family Lives Where: Home infectious screening In the last 2 months have you had wt loss of >10#?: NO Have you had fever, night sweats or hemotysis?: No Have you traveled outside the country in the last 6 months?: No Isolation: Standard PE Vital Signs Vitals: Temperature 98.0 F Pulse Rate [Right Radial] 94 Pulse Rate 95 Respiratory Rate 20 Blood Pressure [Left Arm] 128/60 Blood Pressure [Right Arm] 114/54 Blood Pressure 159/95 O2 Sat by Pulse Oximetry 96 General Limitations: No Limitations and Physical Limitation General Appearance: Alert, In No Apparent Distress and Obese Head Head Exam: Normal Inspection and Atraumatic Eyes Eye exam: Normal Appearance, PERRL and EOMI ENT ENT Exam: Normal Exam, Normal Oropharynx and Normal External Ear Exam Neck Neck Exam: Normal Inspection and Full ROM Chest Chest Inspection: Normal Inspection and Symmetric Chest Wall Rise Respiratory Respiratory Exam: Normal Lung Sounds Bilat Respiratory Exam: Bilateral: Clear to Auscultation Cardiovascular Cardiovascular Exam: Regular Rate and Normal Rhythm Abdominal Exam Abdominal Exam: Normal Inspection, Soft, Tenderness (generalized) and Hyperactive Bowel Sounds; negative Trauma and Ascites Abdominal Tenderness: Mild (diffuse) Rectal Rectal Exam: Deferred External Exam: Female: Deferred : Bimanual Exam (female): Deferred Back Back Exam: Normal Inspection Neurologic Neurological Exam: Alert, Oriented X3 and CN II-XII Intact Psychiatric Psychiatric Exam: Normal Affect Skin Skin Exam: Warm, Dry and Intact COURSE Treatment Treatment: NS hydration, antiemetic Reevaluation 1st: Improved Consultation Called: 10:12 Call Returned: 10:19 Consultation Comments: Recommended admit for further evaluation and treatment ROR Labs Reviewed Laboratory Results Reviewed?: Yes Result Diagrams: 03/24/18 04:19 03/24/18 04:19 Laboratory: 03/22/18 19:35 Stool Stool Culture - Final 03/22/18 19:35 Stool - Final WBC 7.8 X10^3/uL (3.6-10.0) 03/24/18 04:19 RBC 3.35 X10^6/uL (3.5-5.4) L 03/24/18 04:19 Hgb 10.3 g/dL (12.0-16.0) L 03/24/18 04:19 Hct 30.1 % (36.0-47.0) L 03/24/18 04:19 MCV 89.9 fL (80.0-100.0) 03/24/18 04:19 MCH 30.7 pg (27.0-34.0) 03/24/18 04:19 MCHC 34.1 g/dL (33.0-35.0) 03/24/18 04:19 RDW 15.7 % (11.6-16.5) 03/24/18 04:19 Plt Count 233 X10^3/uL (150.0-450.0) 03/24/18 04:19 Plt Count Comment Adequate (ADEQUATE) 03/20/18 04:51 MPV 8.9 fL (7.4-11.0) 03/24/18 04:19 Neut % (Auto) 65.3 % (42.0-75.0) 03/24/18 04:19 Lymph % (Auto) 22.3 % (21.0-51.0) 03/24/18 04:19 [place] % (Auto) 6.9 % (0.0-13.0) 03/24/18 04:19 Eos % (Auto) 4.7 % (0.9-2.9) H 03/24/18 04:19 Baso % (Auto) 0.8 % (0.2-1.0) 03/24/18 04:19 Neut # (Auto) 5.1 x10^3/uL (2.2-4.8) H 03/24/18 04:19 Lymph # (Auto) 1.7 X10^3/uL (1.3-2.9) 03/24/18 04:19 [place] # (Auto) 0.5 x10^3/uL (0.3-0.8) 03/24/18 04:19 Eos # (Auto) 0.4 x10^3/uL (0.0-0.2) H 03/24/18 04:19 Baso # (Auto) 0.1 X10^3/uL (0.0-0.1) 03/24/18 04:19 Absolute Nucleated RBC 0.1 /100WBC 03/24/18 04:19 Plt Clumps, EDTA Few 03/20/18 04:51 Plt Morphology Comment Normal (NORMAL) 03/20/18 04:51 RBC Morphology Normal (NORMAL) 03/20/18 04:51 Sodium 134 mmol/L (136-145) L 03/24/18 04:19 Corrected Sodium 135 mmol/L (136-145) L 03/24/18 04:19 Potassium 3.1 mmol/L (3.5-5.1) L 03/24/18 04:19 Chloride 100 mmol/L (98-107) 03/24/18 04:19 Carbon Dioxide 29.3 mmol/L (21-32) 03/24/18 04:19 BUN 18 mg/dL (7-18) 03/24/18 04:19 Creatinine 1.29 mg/dL (0.55-1.02) H 03/24/18 04:19 Est GFR (MDRD) Af Amer 53 (>60) L 03/24/18 04:19 Est GFR (MDRD) Non-Af 44 (>60) L 03/24/18 04:19 Glucose 145 mg/dL (65-99) H 03/24/18 04:19 Calcium 8.5 mg/dL (8.5-10.1) 03/24/18 04:19 Corrected Calcium 9.7 mg/dL (8.5-10.1) 03/24/18 04:19 Magnesium 1.9 mg/dL (1.7-2.9) 03/21/18 04:50 Total Bilirubin 0.30 mg/dL (0.2-1.0) 03/24/18 04:19 AST 73 Units/L (15-37) H 03/24/18 04:19 ALT 87 Units/L (12-78) H 03/24/18 04:19 Alkaline Phosphatase 159 Units/L (46-116) H 03/24/18 04:19 Creatine Kinase 15 Units/L (26-192) L 03/19/18 22:30 CK-MB (CK-2) < 1.0 ng/mL (0-4.0) 03/19/18 22:30 CK/CKMB % Calc 6.7 % (<4) 03/19/18 22:30 Troponin I < 0.02 ng/mL (0-1.5) 03/19/18 22:30 Total Protein 6.1 g/dL (6.4-8.2) L 03/24/18 04:19 Albumin 2.5 g/dL (3.4-5.0) L 03/24/18 04:19 Globulin 3.6 g/dL (2.5-4.5) 03/24/18 04:19 Albumin/Globulin Ratio 0.7 Ratio (1.1-2.1) L 03/24/18 04:19 Amylase 39 Units/L (25-115) 03/18/18 07:50 Lipase 182 Units/L (73-393) 03/18/18 07:50 Specimen Type Catherized urine 03/18/18 14:53 Urine Color Yellow (YELLOW) 03/18/18 14:53 Urine Appearance Slightly hazy (CLEAR) 03/18/18 14:53 Urine pH 5.0 (5.0 - 8.0) 03/18/18 14:53 Ur Specific [place] 1.025 (1.000-1.030) 03/18/18 14:53 Urine Protein 2+ (NEGATIVE) 03/18/18 14:53 Urine Glucose (UA) Negative (NEGATIVE) 03/18/18 14:53 Urine Ketones 2+ (NEGATIVE) 03/18/18 14:53 Urine Occult Blood 2+ (NEGATIVE) 03/18/18 14:53 Urine Nitrite Negative (NEGATIVE) 03/18/18 14:53 Urine Bilirubin Negative (NEGATIVE) 03/18/18 14:53 Urine Urobilinogen Normal (NORMAL) 03/18/18 14:53 Ur Leukocyte Esterase Negative (NEGATIVE) 03/18/18 14:53 Urine RBC 3-5 /HPF (NONE SEEN) 03/18/18 14:53 Urine WBC None seen /HPF (NONE SEEN) 03/18/18 14:53 Ur Squamous Epith Cells Rare /HPF (NEGATIVE) 03/18/18 14:53 Amorphous Sediment 2+ /HPF (NEGATIVE) 03/18/18 14:53 Urine Bacteria Trace /HPF (NEGATIVE) 03/18/18 14:53 Ur Culture Indicated? No/not indicated 03/18/18 14:53 Stool Description 2g,unformed,dk.green 03/22/18 19:35 Stl Occult Blood (IFOB) Negative (NEGATIVE) 03/22/18 19:35 Stool for White Cells Positive (NEGATIVE) A 03/22/18 19:35 Stl C. diff Tox B Gene Negative (NEGATIVE) 03/22/18 09:20 Stl C. diff 027-NAP1-BI Negative (NEGATIVE) 03/22/18 09:20 Cryptosporid parvum Ag Negative (NEGATIVE) 03/22/18 19:35 Giardia lamblia Ag Negative (NEGATIVE) 03/22/18 19:35 Instructions Instructions: Chronic Obstructive Pulmonary Disease Exacerbation, Vebk-rn-Nwgy Fall Prevention in the Home, Uplj-av-Idqu Food Choices for Gastroesophageal Reflux Disease, Adult, Aero-pv-Itrb Nausea and Vomiting, Adult, Cqyx-qu-Qypc Abdominal Pain, Adult, Zvio-xc-Dsot Hypertension, Rpdn-ig-Ccau Chronic Kidney Disease, Adult, Hkiq-lr-Pebp Heart Failure, Tooe-ku-Fwmh [place] Diet Forms: Patient Portal
== END 2018-03-24 12:05 | disposition short-term general hospital (02) | DRG 392 ==
LOC: ER 07:21 → MED/SURG 10:41
PROVIDERS: ADMIT Internal Medicine; ATTEND Internal Medicine
DX: R11.2 Nausea with vomiting, unspecified; R19.7 Diarrhea, unspecified; I25.10 Atherosclerotic heart disease of native coronary artery without angina pectoris; K21.9 Gastro-esophageal reflux disease without esophagitis; R53.1 Weakness; K86.89 Other specified diseases of pancreas; R10.84 Generalized abdominal pain; R74.8 Abnormal levels of other serum enzymes; E83.52 Hypercalcemia; R06.02 Shortness of breath; I50.9 Heart failure, unspecified; R07.89 Other chest pain; J44.1 Chronic obstructive pulmonary disease with (acute) exacerbation; F41.8 Other specified anxiety disorders; N18.3 Chronic kidney disease, stage 3 (moderate); I12.9 Hypertensive chronic kidney disease with stage 1 through stage 4 chronic kidney disease, or unspecified chronic kidney disease
CPT/HCPCS: 36415; 74176; 78264; 80053; 81001; 82150; 82270; 82310; 82550; 82553; 83630; 83690; 83735; 84132; 84484; 85025; 87045; 87328; 87329; 87427; 87449; 87493; 87899; 93005; 93010; 94640; 94760; 96365; 96367; 96374; 96375; 99283; 99284; A4222; C9113; S0028; J1100; J2060; J2175; J2405; J2550; J3480; J3490; J7030; J7050; J7620

== ENCOUNTER 2018-04-24 11:53 | Inpatient (IN) ==
--- NOTE | 2018-04-24 12:08 | ED.ABDFE ---
HPI Time Seen Time Seen by Provider: 04/24/18 12:03 PCP Primary Care Physician: jamila HPI Comment HPI Comment: GETTING WORSE. PATIENT HAVE HISTORY OF PACREATITIS. SHE IS NOT HOLDING DOWN FLUID. SHE NIES FEVER. CHRONIC DIARRHEA IS WORSE ALSO. Complaint Doctors Chief Complaint Comments: HERE VIA EMS WITH N/V TIMES 2 DAYS WITH ABDOMINAL PAIN AND DIARRHEA. Chief Complaint:: "abdomen pain for two days n/v" Reviewed Nurses Notes Review: Yes Source History Provided: Patient Mode of arrival Mode of Arrival: EMS Timing Onset of Chief Complaint: 04/22/18 Came on: Suddenly Duration Since Onset: Constant Duration: Days Location Location: Diffuse Severity Severity: Moderate Quality Quality: Cramping, Sharp and Generalized Context History of: Similar pain (dx) Modifying factors Worsening Factors: Food Improving Factors: Nothing Associated signs and symptoms Associated Signs and Symptoms: Nausea, Vomiting and Diarrhea PMH PMH Past Medical History: Yes Past Medical History: Anxiety, Arthritis, Asthma, CHF, COPD, Coronary Artery Disease, GERD and Hypertension Past Surgical History: Yes Surgical History: Abdominal Surgery, Appendectomy, Bowel Resection and Cholecystectomy Family History History of Family Medical Conditions: Yes Family Medical History: Diabetes Mellitus and Hypertension Social History Does patient currently use any type of tobacco product: No Have you used tobacco products in the last 12 months: No Type of Tobacco Use: None Does any household member use tobacco: No Alcohol Use: None Do you use any recreational Drugs:: No Lives With: Family Lives Where: Home infectious screening In the last 2 months have you had wt loss of >10#?: NO Have you had fever, night sweats or hemotysis?: No Have you traveled outside the country in the last 6 months?: No Isolation: Standard ROS Review of Systems Constitutional: Weakness and Fatigue; negative Chills and Fever Eyes: No Symptoms Reported ENTM: No Symptoms Reported Respiratoy: Short of Breath Cardiovascular: No Symptoms Reported and Edema Gastrointestinal/Abdominal: Abdominal Pain, Diarrhea, Nausea and Vomiting Genitourinary: No Symptoms Reported Neurological: Weakness Musculoskeletal: No Symptoms Reported Integumentary: Dryness Hematologic/Lymphatic: Easy Bleeding and Easy Bruising Endocrine: No Symptoms Reported Psychiatric: No Symptoms Reported All Other Systems: Reviewed and Negative PE Vital Signs Vitals: Temperature 97.6 F Pulse Rate [Right Brachial] 104 Pulse Rate 100 Respiratory Rate 22 Blood Pressure [Left Arm] 117/58 Blood Pressure [Right Arm] 149/68 Blood Pressure 157/74 O2 Sat by Pulse Oximetry 92 General Limitations: No Limitations General Appearance: Alert and In Distress Head Head Exam: Normal Inspection and Atraumatic Eyes Eye exam: Normal Appearance and PERRL ENT ENT Exam: Normal Exam, Normal Oropharynx, Normal External Ear Exam, Mucous Membranes Dry and TM's Normal Bilaterally Neck Neck Exam: Normal Inspection and Trachea Midline Chest Chest Inspection: Symmetric Chest Wall Rise Respiratory Respiratory Exam: Respiratory Distress Respiratory Exam: Bilateral: Rhonchi and Lower: Rhonchi Cardiovascular Cardiovascular Exam: Regular Rate and Normal Rhythm Abdominal Exam Abdominal Exam: Normal Bowel Sounds and Tenderness Abdominal Tenderness: Diffuse and Moderate Rectal Rectal Exam: Deferred Back Back Exam: Paraspinal Tenderness Extremeties Extremities Exam: Edema External Exam: Female: Deferred : Speculum Exam (Female): Deferred : Bimanual Exam (female): Deferred Neurologic Neurological Exam: Alert, Oriented X3 and CN II-XII Intact; negative Motor Sensory Deficit Psychiatric Psychiatric Exam: Normal Affect and Normal Mood Skin Skin Exam: Dry MDM Additional Information Obtained From Additional information provided by: Family Differential Diagnosis Differential Diagnosis- Considerations may include:: Bowel Obstruction, Diverticular disease, Gastritus/PUD, Gastroenteritis, Pancreatitis, Urinary tract infection and Urolithiasis COURSE Treatment Treatment: SEE ORDERS. Education/Counseling Education/Counseling: Patient, Family and Education Educated On: Treatment and Diagnosis ROR Labs Reviewed Laboratory Results Reviewed?: Yes Result Diagrams: 04/27/18 04:30 04/26/18 04:30 Laboratory: 04/24/18 17:39 Urine,Catheterized Urine Culture - Final Klebsiella Pneumoniae WBC 4.2 X10^3/uL (3.6-10.0) 04/27/18 04:30 RBC 3.40 X10^6/uL (3.5-5.4) L 04/27/18 04:30 Hgb 10.0 g/dL (12.0-16.0) L 04/27/18 04:30 Hct 30.1 % (36.0-47.0) L 04/27/18 04:30 MCV 88.4 fL (80.0-100.0) 04/27/18 04:30 MCH 29.5 pg (27.0-34.0) 04/27/18 04:30 MCHC 33.4 g/dL (33.0-35.0) 04/27/18 04:30 RDW 14.5 % (11.6-16.5) 04/27/18 04:30 Plt Count 163 X10^3/uL (150.0-450.0) 04/27/18 04:30 MPV 9.3 fL (7.4-11.0) 04/27/18 04:30 Neut % (Auto) 59.3 % (42.0-75.0) 04/27/18 04:30 Lymph % (Auto) 20.0 % (21.0-51.0) L 04/27/18 04:30 [place] % (Auto) 13.0 % (0.0-13.0) 04/27/18 04:30 Eos % (Auto) 6.5 % (0.9-2.9) H 04/27/18 04:30 Baso % (Auto) 1.2 % (0.2-1.0) H 04/27/18 04:30 Neut # (Auto) 2.5 x10^3/uL (2.2-4.8) 04/27/18 04:30 Lymph # (Auto) 0.8 X10^3/uL (1.3-2.9) L 04/27/18 04:30 [place] # (Auto) 0.5 x10^3/uL (0.3-0.8) 04/27/18 04:30 Eos # (Auto) 0.3 x10^3/uL (0.0-0.2) H 04/27/18 04:30 Baso # (Auto) 0.0 X10^3/uL (0.0-0.1) 04/27/18 04:30 Absolute Nucleated RBC 0.1 /100WBC 04/27/18 04:30 Sodium 141 mmol/L (136-145) 04/26/18 04:30 Corrected Sodium TNP 04/26/18 04:30 Potassium 3.8 mmol/L (3.5-5.1) 04/26/18 04:30 Chloride 106 mmol/L (98-107) 04/26/18 04:30 Carbon Dioxide 30.0 mmol/L (21-32) 04/26/18 04:30 BUN 17 mg/dL (7-18) 04/26/18 04:30 Creatinine 1.14 mg/dL (0.55-1.02) H 04/26/18 04:30 Est GFR (MDRD) Af Amer > 60 (>60) 04/26/18 04:30 Est GFR (MDRD) Non-Af 51 (>60) L 04/26/18 04:30 Glucose 85 mg/dL (65-99) 04/26/18 04:30 Uric Acid 14.5 mg/dL (2.6-6.0) H 04/25/18 04:50 Calcium 9.9 mg/dL (8.5-10.1) 04/26/18 04:30 Corrected Calcium 11.3 mg/dL (8.5-10.1) H 04/26/18 04:30 Magnesium 2.2 mg/dL (1.7-2.9) 04/26/18 04:30 Total Bilirubin 0.50 mg/dL (0.2-1.0) 04/26/18 04:30 AST 128 Units/L (15-37) H 04/26/18 04:30 ALT 54 Units/L (12-78) 04/26/18 04:30 Alkaline Phosphatase 222 Units/L (46-116) H 04/26/18 04:30 Total Protein 6.5 g/dL (6.4-8.2) 04/26/18 04:30 Albumin 2.2 g/dL (3.4-5.0) L 04/26/18 04:30 Globulin 4.3 g/dL (2.5-4.5) 04/26/18 04:30 Albumin/Globulin Ratio 0.5 Ratio (1.1-2.1) L 04/26/18 04:30 Amylase 44 Units/L (25-115) 04/27/18 04:30 Lipase 298 Units/L (73-393) 04/27/18 04:30 Specimen Type Catherized urine 04/24/18 17:39 Urine Color Yellow (YELLOW) 04/24/18 17:39 Urine Appearance Slightly hazy (CLEAR) 04/24/18 17:39 Urine pH 5.0 (5.0 - 8.0) 04/24/18 17:39 Ur Specific [place] 1.020 (1.000-1.030) 04/24/18 17:39 Urine Protein 2+ (NEGATIVE) 04/24/18 17:39 Urine Glucose (UA) Negative (NEGATIVE) 04/24/18 17:39 Urine Ketones Negative (NEGATIVE) 04/24/18 17:39 Urine Occult Blood 2+ (NEGATIVE) 04/24/18 17:39 Urine Nitrite Positive (NEGATIVE) 04/24/18 17:39 Urine Bilirubin Negative (NEGATIVE) 04/24/18 17:39 Urine Urobilinogen Normal (NORMAL) 04/24/18 17:39 Ur Leukocyte Esterase 1+ (NEGATIVE) 04/24/18 17:39 Urine RBC 5-10 /HPF (NONE SEEN) 04/24/18 17:39 Urine WBC 10-20 /HPF (NONE SEEN) 04/24/18 17:39 Ur Squamous Epith Cells Rare /HPF (NEGATIVE) 04/24/18 17:39 Urine Bacteria 3+ /HPF (NEGATIVE) 04/24/18 17:39 Ur Culture Indicated? Yes/culture set up 04/24/18 17:39 XRAY XRAY Interpreted by: Radiologist XRAY Findings: REPORT DISCUSS WITH PATIENT AND FAMILY. Diagnosis Discharge Problem: Pancreatitis
[2018-04-24] MEDS: NS 1000 ML 1,000 ML IV SCH ×2 (12:17→23:17)
[2018-04-24 12:19] LABS: BASOPHILS # (AUTO) 0.1 X10^3/uL (0.0-0.1); BASOPHILS % (AUTO) 1.5 % (0.2-1.0); EOSINOPHILS # (AUTO) 0.3 x10^3/uL (0.0-0.2); EOSINOPHILS % (AUTO) 3.3 % (0.9-2.9); HEMATOCRIT 39.9 % (36.0-47.0); HEMOGLOBIN 13.7 g/dL (12.0-16.0); LYMPHOCYTES # (AUTO) 1.5 X10^3/uL (1.3-2.9); LYMPHOCYTES % (AUTO) 16.9 % (21.0-51.0); MEAN CORPUSCULAR HEMOGLOBIN 29.6 pg (27.0-34.0); MEAN CORPUSCULAR HGB CONC 34.3 g/dL (33.0-35.0); MEAN CORPUSCULAR VOLUME 86.3 fL (80.0-100.0); MEAN PLATELET VOLUME 8.5 fL (7.4-11.0); MONOCYTES # (AUTO) 0.7 x10^3/uL (0.3-0.8); MONOCYTES % (AUTO) 7.8 % (0.0-13.0); NEUTROPHILS # (AUTO) 6.5 x10^3/uL (2.2-4.8); NEUTROPHILS % (AUTO) 70.5 % (42.0-75.0); PLATELET COUNT 283 X10^3/uL (150.0-450.0); RED BLOOD COUNT 4.62 X10^6/uL (3.5-5.4); RED CELL DISTRIBUTION WIDTH 14.1 % (11.6-16.5); WHITE BLOOD COUNT 9.2 X10^3/uL (3.6-10.0)
[2018-04-24 12:36] LABS: ALBUMIN 2.8 g/dL (3.4-5.0); CALCIUM 11.2 mg/dL (8.5-10.1); CARBON DIOXIDE 29.9 mmol/L (21-32); COR CA(FOR HYPOALB) 12.2 mg/dL (8.5-10.1); CREATININE 1.32 mg/dL (0.55-1.02)
[2018-04-24] MEDS ORDERED: DEMEROL INJ IVP ONE (12:46)
[2018-04-24] MEDS ORDERED: PEPCID 20 MG IV PREMIX* 20 MG/50 ML BAG IV ONE ×2 (12:46→13:02)
[2018-04-24] MEDS ORDERED: ZOFRAN INJ 4 MG VIAL IVP ONE (12:46)
[2018-04-24] MEDS ORDERED: ZOFRAN INJ 4 MG VIAL ONE (13:02)
[2018-04-24] MEDS ORDERED: DEMEROL INJ ONE (13:03)
[2018-04-24] MEDS ORDERED: PHENERGAN INJ 25 MG IVP ONE (14:13)
[2018-04-24] MEDS ORDERED: PHENERGAN INJ 25 MG ONE (14:14)
--- NOTE | 2018-04-24 15:02 | CT ---
CT abdomen and pelvis without contrast Indication: Abdominal pain, pancreatitis, pancreatic mass Technique: Helical CT images of the abdomen and pelvis were obtained without IV contrast. Reformatted images in the coronal and sagittal planes were also generated for review. Comparison: 03/18/2018 Findings: There is stable mild atelectasis versus scarring of the left lung base. No aggressive osseo us lesions are identified. Within the limits of a noncontrast exam, the unenhanced liver is again enlarged and diffusely steatot ic. The gallbladder is surgically absent. The unenhanced spleen and adrenals are unremarkable. Bilate ral renal cysts are unchanged. There is no urolithiasis or obstructive uropathy. There is new mild stranding about the pancreatic body and tail, which again appears prominent, unchan ged when compared to the prior exam. The pancreatic head and distal body are grossly normal. No discr ete pancreatic or peripancreatic fluid collection is identified, within the limits of a noncontrast e xam. The unenhanced GI tract is without obstruction or gross inflammation. There is calcification of the a ortoiliac system without aneurysm. The collapsed urinary bladder is grossly normal. The uterus is meredith gically absent. No free air, significant free fluid or bulky lymphadenopathy is identified. Impression: Stable prominence of the pancreatic body and tail with new mild peripancreatic stranding, suggestive for acute pancreatitis. Underlying neoplasm is still not entirely excluded and MRI is again recommend ed for further evaluation on a nonemergent basis. Enlarged fatty liver and additional stable findings as above. Reported By:
[2018-04-24] MEDS ORDERED: ATIVAN INJ 2 MG VIAL ONE (15:53)
[2018-04-24] MEDS: ATIVAN INJ 2 MG VIAL IVP SCH ×2 (16:09→20:40)
[2018-04-24] MEDS: PHENERGAN INJ 25 MG IVP PRN ×2 (16:10→22:15)
[2018-04-24] MEDS: DEMEROL INJ IVP PRN ×2 (16:10→20:44)
[2018-04-24] MEDS: PROTONIX INJ 40 MG VIAL IVP SCH (16:50)
[2018-04-24] MEDS: DUONEB 0.5 MG/3 MG NEB SCH ×2 (16:54→21:05)
[2018-04-24 17:26] VITALS: BMI 36.7
[2018-04-24 17:59] LABS: BILIRUBIN,URINE NEGATIVE (NEGATIVE); BLOOD/HEMOGLOBIN,URINE 2+ (NEGATIVE); GLUCOSE, URINE NEGATIVE (NEGATIVE); KETONES,URINE NEGATIVE (NEGATIVE); LEUKOCYTE ESTERASE ,URINE 1+ (NEGATIVE); NITRITES,URINE POSITIVE (NEGATIVE); PROTEIN,URINE 2+ (NEGATIVE); UROBILINOGEN,URINE NORMAL (NORMAL)
[2018-04-24 18:10] LABS: APPEARANCE,URINE SLIGHTLY HAZY (CLEAR); BACTERIA,URINE 3+ /HPF (NEGATIVE); COLOR,URINE YELLOW (YELLOW); SQUAMOUS EPITHELIAL CELL,UR RARE /HPF (NEGATIVE)
[2018-04-24] MEDS ORDERED: ATIVAN INJ 2 MG VIAL IVP SCH (21:00)
[2018-04-24] MEDS ORDERED: TYLENOL 325 MG TAB PO PRN (23:39)
[2018-04-25] MEDS: MOTRIN TAB 400 MG PO ONE ×2 (00:48→05:46)
[2018-04-25] MEDS: DEMEROL INJ IVP PRN ×5 (00:48→19:00)
[2018-04-25] MEDS: DUONEB 0.5 MG/3 MG NEB SCH ×7 (01:41→21:15)
[2018-04-25] MEDS: NS 1000 ML 1,000 ML IV SCH ×2 (03:19→05:47)
[2018-04-25] MEDS: ROBITUSSIN DM PO PRN ×2 (03:26→12:57)
[2018-04-25] MEDS ORDERED: PEPCID 20 MG IV PREMIX* 20 MG/50 ML BAG IV ONE (03:52)
[2018-04-25] MEDS: PHENERGAN INJ 25 MG IVP PRN ×4 (04:13→21:10)
[2018-04-25 05:36] LABS: BASOPHILS # (AUTO) 0.1 X10^3/uL (0.0-0.1); BASOPHILS % (AUTO) 1.1 % (0.2-1.0); EOSINOPHILS # (AUTO) 0.1 x10^3/uL (0.0-0.2); EOSINOPHILS % (AUTO) 0.8 % (0.9-2.9); HEMATOCRIT 36.3 % (36.0-47.0); HEMOGLOBIN 12.4 g/dL (12.0-16.0); LYMPHOCYTES # (AUTO) 1.5 X10^3/uL (1.3-2.9); LYMPHOCYTES % (AUTO) 15.8 % (21.0-51.0); MEAN CORPUSCULAR HEMOGLOBIN 29.5 pg (27.0-34.0); MEAN CORPUSCULAR HGB CONC 34.1 g/dL (33.0-35.0); MEAN CORPUSCULAR VOLUME 86.6 fL (80.0-100.0); MEAN PLATELET VOLUME 9.3 fL (7.4-11.0); MONOCYTES % (AUTO) 10.3 % (0.0-13.0); NEUTROPHILS # (AUTO) 6.8 x10^3/uL (2.2-4.8); PLATELET COUNT 241 X10^3/uL (150.0-450.0); RED BLOOD COUNT 4.19 X10^6/uL (3.5-5.4); RED CELL DISTRIBUTION WIDTH 14.3 % (11.6-16.5); WHITE BLOOD COUNT 9.4 X10^3/uL (3.6-10.0)
[2018-04-25 05:50] LABS: ALANINE AMINOTRANSFERASE 41 Units/L (12-78); ALBUMIN 2.5 g/dL (3.4-5.0); ALKALINE PHOSPHATASE 224 Units/L (46-116); AMYLASE 167 Units/L (25-115); ASPARTATE AMINO TRANSFERASE 107 Units/L (15-37); BLOOD UREA NITROGEN 19 mg/dL (7-18); CALCIUM 10.6 mg/dL (8.5-10.1); CARBON DIOXIDE 30.1 mmol/L (21-32); CHLORIDE 102 mmol/L (98-107); COR CA(FOR HYPOALB) 11.8 mg/dL (8.5-10.1); CREATININE 1.34 mg/dL (0.55-1.02); LIPASE 1482 Units/L (73-393); SODIUM 137 mmol/L (136-145); TOTAL PROTEIN 7.1 g/dL (6.4-8.2); eGFR NON BLACK RACES 42 (>60)
[2018-04-25] MEDS ORDERED: K-RIDER 10 MEQ/NS 100 ML 10 MEQ/100 ML BAG IV PRN ×2 (06:06→14:05)
[2018-04-25] MEDS ORDERED: POTASSIUM CHL 60 MEQ/NS 0.45% 500 ML IV PRN ×2 (06:06→14:06)
[2018-04-25] MEDS ORDERED: POTASSIUM CHL 40 MEQ/NS 0.45% 500 ML IV PRN ×2 (06:06→14:05)
[2018-04-25] MEDS ORDERED: K-LYTE EFFERVESCENT PO PRN ×2 (06:06→14:05)
[2018-04-25] MEDS ORDERED: POTASSIUM CHLORIDE LIQ 20 MEQ UDC PO PRN ×2 (06:06→14:06)
[2018-04-25] MEDS ORDERED: MAGNESIUM SULFATE 1 GRAM/100 mL PREMIX 1 GM/100 ML BAG IV PRN ×2 (06:25→06:34)
[2018-04-25] MEDS: ATIVAN INJ 2 MG VIAL IVP SCH (09:13)
[2018-04-25] MEDS: PROTONIX INJ 40 MG VIAL IVP SCH (09:14)
[2018-04-25] MEDS ORDERED: XANAX PO PRN (10:22)
[2018-04-25] MEDS ORDERED: ROCEPHIN VIAL 1 GRAM 1 G in NS 100 ML IV + SPIKE MINIBAG* 100 ML IV SCH (11:00)
[2018-04-25] MEDS ORDERED: LEVAQUIN PREMIX IV 500 MG 500 MG/100 ML BAG IV SCH (11:30)
[2018-04-25] MEDS: XANAX PO PRN (14:40)
[2018-04-25] MEDS ORDERED: NS 1000 ML 1,000 ML IV SCH (15:00)
[2018-04-25] MEDS: MAGNESIUM SULFATE 1 GRAM/100 mL PREMIX 1 GM/100 ML BAG IV PRN ×3 (15:03→18:07)
--- NOTE | 2018-04-25 15:07 | DR.H&P ---
H&P - History & Physical for Day of: H&P Date: 04/24/18 - Chief Complaint Chief Complaint: N/V ABDOMINAL PAIN - History of Present Illness History of Present Illness: 63 WF ER ADMISSION PRESENTING VIA EMS WITH CO N/V AND ABDOMINAL PAIN X 1 WEEK, WORSENING. PT STATES SHE CANNOT EAT. PT HAS PMH OF GERD AND PSEUDOCYST TO PANCREAS WITH BIOPSY AT [facility] [place] IN [facility]. LAST MONTH. PT HAS PMH OF CHF, COPD, RESP FAILURE, MO, OA, DHARA, HTN. ON EVALUATION IN ER PT HAD NEW FINDING ON CT OF ACUTE PANCREATITIS WITH CORRELATING ELEVATED AMYLASE AND LIPASE. PT ADMITTED FOR TREATMENT OF ACUTE ILLNESS, NPO, HYDRATION, PAIN AND NAUSEA CONTROL - Past Medical History Past Medical History: Coronary Artery Disease, Hypertension, Anxiety, COPD, Asthma, GERD, Arthritis, CHF - Past Surgical History Surgical History: Abdominal Surgery, Appendectomy, Bowel Resection, Cholecystectomy - Family History Family Medical History: Diabetes Mellitus, Hypertension - Social History Does patient currently use any type of tobacco product: No Have you used tobacco products in the last 12 months: No Type of Tobacco Use: None Does any household member use tobacco: No Alcohol Use: None Drug Use: Prescription Drugs - Medications Home Medications: ketorolac [From Toradol] Allergy (Verified 03/18/18 10:13) nalbuphine [From Nubain] Allergy (Verified 03/18/18 10:13) Penicillins Allergy (Verified 03/18/18 10:13) Sulfa (Sulfonamide Antibiotics) [SULFA] Allergy (Verified 03/18/18 10:13) BETA BLOCKERS Allergy (Uncoded 03/18/18 10:13) - Review of Systems Constitutional: Weakness Eyes: No Symptoms Reported ENT: No Symptoms Reported Respiratory: Cough, Wheezing Cardiovascular: No Symptoms Reported, Edema Gastrointestinal: Nausea, Vomiting, Diarrhea Musculoskeletal: Back Pain, Leg Pain Neurological: Weakness - Physical Exam Vital Signs: Temperature 99.1 F Pulse Rate [Right Brachial] 86 Pulse Rate 89 Respiratory Rate 18 Blood Pressure [Left Arm] 131/65 Blood Pressure [Right Arm] 146/66 Blood Pressure 157/74 O2 Sat by Pulse Oximetry 96 Oriented: Normal Eyes: Normal Ear: Normal Throat: Normal Respiratory: Diminished Throughout Cardiovascular: Normal : Normal Auscultation: Bowel Sounds: Normal Tenderness: Diffuse Skin: Decreased Turgur, Bruising Musculoskeletal: Right, Left, Shoulder, Leg, Back:Lumbar, Motor Deficit Psychiatric: Anxiety, Depression Affect: Depressed Speech Pattern: Clear, Appropriate - Assessment/Plan (1) Pancreatitis Status: Acute Plan: ADMIT, VERIFY HOME MEDS. RESUME RESP REGIMEN, JET NEBS, O2. ON ADMISSION ELEVATED AMYLASE AND LIPASE. NPO, HYDRATION, PAIN AND NAUSEA CONTROL (2) COPD exacerbation Status: Acute (3) Pancreatic abnormality Status: Acute (4) Hypertension Status: Chronic (5) COPD (chronic obstructive pulmonary disease) Qualifiers: COPD type: COPD with acute exacerbation Qualified Code(s): J44.1 - Chronic obstructive pulmonary disease with (acute) exacerbation Status: Acute (6) GERD (gastroesophageal reflux disease) Status: Chronic (7) Depression Status: Chronic - Allergies Allergies/Adverse Reactions: Allergies Allergy/AdvReac Type Severity Reaction Status Date / Time ketorolac [From Toradol] Allergy Verified 03/18/18 10:13 nalbuphine [From Nubain] Allergy Verified 03/18/18 10:13 Penicillins Allergy Verified 03/18/18 10:13 Sulfa (Sulfonamide Allergy Verified 03/18/18 10:13 Antibiotics) [SULFA] BETA BLOCKERS Allergy Uncoded 03/18/18 10:13
--- NOTE | 2018-04-25 15:13 | PCM.PROG ---
Progress Note - Progress Note for Day of Date of Exam: 04/25/18 - Subjective Subjective: 63 WF ER ADMISSION ON 04/24 WITH ACUTE PANCREATITIS. PT CURRENTLY NPO WITH IV HYDRATION, PAIN AND NAUSEA CONTROL. RESP THERAPY FOR COPD AND RESP FAILURE, IMPROVING AMYLASE 167, LIPASE 1482. WILL CONTINUE CURRENT PLAN OF CARE , REPEAT AM LABS - Past Medical Family Social History Past Med/Fam/Surg Hx: No changes since H&P Allergies: Allergies ketorolac [From Toradol] Allergy (Verified 03/18/18 10:13) nalbuphine [From Nubain] Allergy (Verified 03/18/18 10:13) Penicillins Allergy (Verified 03/18/18 10:13) Sulfa (Sulfonamide Antibiotics) [SULFA] Allergy (Verified 03/18/18 10:13) BETA BLOCKERS Allergy (Uncoded 03/18/18 10:13) - Review of Systems ROS: No change since H&P - Vital Signs and I&O's Vital Signs: Temperature 99.1 F Pulse Rate [Right Brachial] 86 Pulse Rate 89 Respiratory Rate 18 Blood Pressure [Left Arm] 131/65 Blood Pressure [Right Arm] 146/66 Blood Pressure 157/74 O2 Sat by Pulse Oximetry 96 Intake and Output: Intake & Output 04/23/18 04/24/18 04/25/18 04/26/18 11:59 11:59 11:59 11:59 Intake Total 400 / 400 Output Total 400 / 400 Balance 0 / 0 - Physical Exam Oriented: Normal Eyes: Normal Ear: Normal Throat: Normal Respiratory: Diminished Cardiovascular: Normal : Normal Auscultation: Bowel Sounds: Normal Tenderness: Diffuse Skin: Decreased Turgur, Bruising Musculoskeletal: Right, Left, Shoulder, Leg, Back:Lumbar, Motor Deficit Psychiatric: Anxiety, Depression Affect: Depressed Speech Pattern: Clear, Appropriate - Laboratory and Diagnostics Result Diagrams: 04/25/18 04:50 04/25/18 04:50 Labs: 04/24/18 17:39 Urine,Catheterized Urine Culture - Preliminary Laboratory WBC 9.4 X10^3/uL (3.6-10.0) 04/25/18 04:50 RBC 4.19 X10^6/uL (3.5-5.4) 04/25/18 04:50 Hgb 12.4 g/dL (12.0-16.0) 04/25/18 04:50 Hct 36.3 % (36.0-47.0) 04/25/18 04:50 MCV 86.6 fL (80.0-100.0) 04/25/18 04:50 MCH 29.5 pg (27.0-34.0) 04/25/18 04:50 MCHC 34.1 g/dL (33.0-35.0) 04/25/18 04:50 RDW 14.3 % (11.6-16.5) 04/25/18 04:50 Plt Count 241 X10^3/uL (150.0-450.0) 04/25/18 04:50 MPV 9.3 fL (7.4-11.0) 04/25/18 04:50 Neut % (Auto) 72.0 % (42.0-75.0) 04/25/18 04:50 Lymph % (Auto) 15.8 % (21.0-51.0) L 04/25/18 04:50 [place] % (Auto) 10.3 % (0.0-13.0) 04/25/18 04:50 Eos % (Auto) 0.8 % (0.9-2.9) L 04/25/18 04:50 Baso % (Auto) 1.1 % (0.2-1.0) H 04/25/18 04:50 Neut # (Auto) 6.8 x10^3/uL (2.2-4.8) H 04/25/18 04:50 Lymph # (Auto) 1.5 X10^3/uL (1.3-2.9) 04/25/18 04:50 [place] # (Auto) 1.0 x10^3/uL (0.3-0.8) H 04/25/18 04:50 Eos # (Auto) 0.1 x10^3/uL (0.0-0.2) 04/25/18 04:50 Baso # (Auto) 0.1 X10^3/uL (0.0-0.1) 04/25/18 04:50 Absolute Nucleated RBC 0.0 /100WBC 04/25/18 04:50 Sodium 137 mmol/L (136-145) 04/25/18 04:50 Corrected Sodium TNP 04/25/18 04:50 Potassium 3.6 mmol/L (3.5-5.1) 04/25/18 04:50 Chloride 102 mmol/L (98-107) 04/25/18 04:50 Carbon Dioxide 30.1 mmol/L (21-32) 04/25/18 04:50 BUN 19 mg/dL (7-18) H 04/25/18 04:50 Creatinine 1.34 mg/dL (0.55-1.02) H 04/25/18 04:50 Est GFR (MDRD) Af Amer 51 (>60) L 04/25/18 04:50 Est GFR (MDRD) Non-Af 42 (>60) L 04/25/18 04:50 Glucose 104 mg/dL (65-99) H 04/25/18 04:50 Uric Acid 14.5 mg/dL (2.6-6.0) H 04/25/18 04:50 Calcium 10.6 mg/dL (8.5-10.1) H 04/25/18 04:50 Corrected Calcium 11.8 mg/dL (8.5-10.1) H 04/25/18 04:50 Magnesium 1.4 mg/dL (1.7-2.9) L 04/25/18 04:50 Total Bilirubin 0.50 mg/dL (0.2-1.0) 04/25/18 04:50 AST 107 Units/L (15-37) H 04/25/18 04:50 ALT 41 Units/L (12-78) 04/25/18 04:50 Alkaline Phosphatase 224 Units/L (46-116) H 04/25/18 04:50 Total Protein 7.1 g/dL (6.4-8.2) 04/25/18 04:50 Albumin 2.5 g/dL (3.4-5.0) L 04/25/18 04:50 Globulin 4.6 g/dL (2.5-4.5) H 04/25/18 04:50 Albumin/Globulin Ratio 0.5 Ratio (1.1-2.1) L 04/25/18 04:50 Amylase 167 Units/L (25-115) H 04/25/18 04:50 Lipase 1482 Units/L (73-393) H 04/25/18 04:50 Specimen Type Catherized urine 04/24/18 17:39 Urine Color Yellow (YELLOW) 04/24/18 17:39 Urine Appearance Slightly hazy (CLEAR) 04/24/18 17:39 Urine pH 5.0 (5.0 - 8.0) 04/24/18 17:39 Ur Specific [place] 1.020 (1.000-1.030) 04/24/18 17:39 Urine Protein 2+ (NEGATIVE) 04/24/18 17:39 Urine Glucose (UA) Negative (NEGATIVE) 04/24/18 17:39 Urine Ketones Negative (NEGATIVE) 04/24/18 17:39 Urine Occult Blood 2+ (NEGATIVE) 04/24/18 17:39 Urine Nitrite Positive (NEGATIVE) 04/24/18 17:39 Urine Bilirubin Negative (NEGATIVE) 04/24/18 17:39 Urine Urobilinogen Normal (NORMAL) 04/24/18 17:39 Ur Leukocyte Esterase 1+ (NEGATIVE) 04/24/18 17:39 Urine RBC 5-10 /HPF (NONE SEEN) 04/24/18 17:39 Urine WBC 10-20 /HPF (NONE SEEN) 04/24/18 17:39 Ur Squamous Epith Cells Rare /HPF (NEGATIVE) 04/24/18 17:39 Urine Bacteria 3+ /HPF (NEGATIVE) 04/24/18 17:39 Ur Culture Indicated? Yes/culture set up 04/24/18 17:39 - Plan (1) Pancreatitis Status: Acute Plan: REPEAT AM LABS, CBC CMP AMYLASE AND LIPASE. RESUME RESP REGIMEN, JET NEBS , O2. ON ADMISSION ELEVATED AMYLASE AND LIPASE. NPO, HYDRATION, PAIN AND NAUSEA CONTROL (2) COPD exacerbation Status: Acute (3) Pancreatic abnormality Status: Acute (4) Hypertension Status: Chronic (5) COPD (chronic obstructive pulmonary disease) Status: Acute Qualifiers: COPD type: COPD with acute exacerbation Qualified Code(s): J44.1 - Chronic obstructive pulmonary disease with (acute) exacerbation (6) GERD (gastroesophageal reflux disease) Status: Chronic (7) Depression Status: Chronic
[2018-04-25] MEDS: LOVENOX INJ 30 MG SYR SC SCH (16:25)
[2018-04-25] MEDS: NS + KCL 20 MEQ/L 1,000 ML IV SCH (16:25)
[2018-04-26] MEDS: DEMEROL INJ IVP PRN ×5 (01:15→21:02)
[2018-04-26] MEDS: PHENERGAN INJ 25 MG IVP PRN ×2 (03:30→08:45)
[2018-04-26] MEDS: NS + KCL 20 MEQ/L 1,000 ML IV SCH ×2 (04:33→15:14)
[2018-04-26] MEDS: DUONEB 0.5 MG/3 MG NEB SCH ×8 (04:50→21:29)
[2018-04-26 05:14] LABS: BASOPHILS # (AUTO) 0.1 X10^3/uL (0.0-0.1); BASOPHILS % (AUTO) 1.1 % (0.2-1.0); EOSINOPHILS # (AUTO) 0.2 x10^3/uL (0.0-0.2); EOSINOPHILS % (AUTO) 3.1 % (0.9-2.9); HEMATOCRIT 31.8 % (36.0-47.0); HEMOGLOBIN 10.8 g/dL (12.0-16.0); LYMPHOCYTES # (AUTO) 1.2 X10^3/uL (1.3-2.9); LYMPHOCYTES % (AUTO) 19.3 % (21.0-51.0); MEAN CORPUSCULAR HEMOGLOBIN 29.7 pg (27.0-34.0); MEAN CORPUSCULAR VOLUME 87.4 fL (80.0-100.0); MEAN PLATELET VOLUME 9.1 fL (7.4-11.0); MONOCYTES # (AUTO) 0.7 x10^3/uL (0.3-0.8); MONOCYTES % (AUTO) 11.9 % (0.0-13.0); NEUTROPHILS % (AUTO) 64.6 % (42.0-75.0); PLATELET COUNT 177 X10^3/uL (150.0-450.0); RED BLOOD COUNT 3.64 X10^6/uL (3.5-5.4); RED CELL DISTRIBUTION WIDTH 14.2 % (11.6-16.5); WHITE BLOOD COUNT 6.2 X10^3/uL (3.6-10.0)
[2018-04-26 05:38] LABS: ALANINE AMINOTRANSFERASE 54 Units/L (12-78); ALBUMIN 2.2 g/dL (3.4-5.0); ALKALINE PHOSPHATASE 222 Units/L (46-116); AMYLASE 68 Units/L (25-115); ASPARTATE AMINO TRANSFERASE 128 Units/L (15-37); BLOOD UREA NITROGEN 17 mg/dL (7-18); CALCIUM 9.9 mg/dL (8.5-10.1); CHLORIDE 106 mmol/L (98-107); COR CA(FOR HYPOALB) 11.3 mg/dL (8.5-10.1); CREATININE 1.14 mg/dL (0.55-1.02); LIPASE 490 Units/L (73-393); MAGNESIUM 2.2 mg/dL (1.7-2.9); SODIUM 141 mmol/L (136-145); TOTAL PROTEIN 6.5 g/dL (6.4-8.2); eGFR NON BLACK RACES 51 (>60)
[2018-04-26] MEDS: LEVAQUIN PREMIX IV 500 MG 500 MG/100 ML BAG IV SCH (08:52)
[2018-04-26] MEDS: LOVENOX INJ 30 MG SYR SC SCH (08:52)
[2018-04-26] MEDS: PROTONIX INJ 40 MG VIAL IVP SCH (08:52)
[2018-04-26] MEDS ORDERED: LOVENOX INJ 30 MG SYR SC SCH (09:00)
[2018-04-26] MEDS: ROBITUSSIN DM PO PRN (12:25)
[2018-04-26] MEDS: XANAX PO PRN (12:26)
[2018-04-26] MEDS: ZOFRAN INJ 4 MG VIAL IVP PRN (12:26)
[2018-04-26] MEDS: PHENERGAN INJ 25 MG IV PRN ×2 (15:10→21:33)
[2018-04-26] MEDS: TYLENOL 325 MG TAB PO PRN (23:22)
[2018-04-27] MEDS: DUONEB 0.5 MG/3 MG NEB SCH ×8 (01:25→20:23)
[2018-04-27] MEDS: NS + KCL 20 MEQ/L 1,000 ML IV SCH ×4 (04:00→16:55)
[2018-04-27] MEDS: PHENERGAN INJ 25 MG IV PRN ×3 (04:00→18:23)
[2018-04-27] MEDS: DEMEROL INJ IVP PRN ×5 (04:00→22:52)
[2018-04-27 05:05] LABS: BASOPHILS % (AUTO) 1.2 % (0.2-1.0); EOSINOPHILS # (AUTO) 0.3 x10^3/uL (0.0-0.2); EOSINOPHILS % (AUTO) 6.5 % (0.9-2.9); HEMATOCRIT 30.1 % (36.0-47.0); LYMPHOCYTES # (AUTO) 0.8 X10^3/uL (1.3-2.9); MEAN CORPUSCULAR HEMOGLOBIN 29.5 pg (27.0-34.0); MEAN CORPUSCULAR HGB CONC 33.4 g/dL (33.0-35.0); MEAN CORPUSCULAR VOLUME 88.4 fL (80.0-100.0); MEAN PLATELET VOLUME 9.3 fL (7.4-11.0); MONOCYTES # (AUTO) 0.5 x10^3/uL (0.3-0.8); NEUTROPHILS # (AUTO) 2.5 x10^3/uL (2.2-4.8); NEUTROPHILS % (AUTO) 59.3 % (42.0-75.0); PLATELET COUNT 163 X10^3/uL (150.0-450.0); RED CELL DISTRIBUTION WIDTH 14.5 % (11.6-16.5); WHITE BLOOD COUNT 4.2 X10^3/uL (3.6-10.0)
[2018-04-27 05:38] LABS: AMYLASE 44 Units/L (25-115); LIPASE 298 Units/L (73-393)
[2018-04-27] MEDS: XANAX PO PRN ×2 (07:10→19:24)
[2018-04-27] MEDS: ZOFRAN INJ 4 MG VIAL IVP PRN ×3 (07:11→20:42)
[2018-04-27] MEDS: LOVENOX INJ 30 MG SYR SC SCH (08:24)
[2018-04-27] MEDS: LEVAQUIN PREMIX IV 500 MG 500 MG/100 ML BAG IV SCH (08:25)
[2018-04-27] MEDS: PROTONIX INJ 40 MG VIAL IVP SCH (08:25)
[2018-04-28] MEDS: DUONEB 0.5 MG/3 MG NEB SCH ×5 (00:14→15:47)
[2018-04-28] MEDS: PHENERGAN INJ 25 MG IV PRN ×3 (00:30→20:23)
[2018-04-28] MEDS: MORPHINE SULFATE INJ 2 MG INJ IVP PRN ×3 (02:00→19:07)
[2018-04-28 03:10] LABS: CREATINE KINASE 20 Units/L (26-192); CREATINE KINASE MB < 1.0 ng/mL (0-4.0); TROPONIN I < 0.02 ng/mL (0-1.5)
[2018-04-28] MEDS: TYLENOL 325 MG TAB PO PRN (03:43)
[2018-04-28 05:05] LABS: BASOPHILS # (AUTO) 0.1 X10^3/uL (0.0-0.1); BASOPHILS % (AUTO) 1.3 % (0.2-1.0); EOSINOPHILS # (AUTO) 0.3 x10^3/uL (0.0-0.2); EOSINOPHILS % (AUTO) 5.7 % (0.9-2.9); HEMATOCRIT 29.5 % (36.0-47.0); HEMOGLOBIN 9.9 g/dL (12.0-16.0); LYMPHOCYTES # (AUTO) 0.9 X10^3/uL (1.3-2.9); LYMPHOCYTES % (AUTO) 19.9 % (21.0-51.0); MEAN CORPUSCULAR HEMOGLOBIN 29.4 pg (27.0-34.0); MEAN CORPUSCULAR HGB CONC 33.5 g/dL (33.0-35.0); MEAN CORPUSCULAR VOLUME 87.9 fL (80.0-100.0); MEAN PLATELET VOLUME 9.7 fL (7.4-11.0); MONOCYTES # (AUTO) 0.7 x10^3/uL (0.3-0.8); MONOCYTES % (AUTO) 13.9 % (0.0-13.0); NEUTROPHILS # (AUTO) 2.8 x10^3/uL (2.2-4.8); NEUTROPHILS % (AUTO) 59.2 % (42.0-75.0); PLATELET COUNT 183 X10^3/uL (150.0-450.0); RED BLOOD COUNT 3.36 X10^6/uL (3.5-5.4); RED CELL DISTRIBUTION WIDTH 14.6 % (11.6-16.5); WHITE BLOOD COUNT 4.7 X10^3/uL (3.6-10.0)
[2018-04-28 05:32] LABS: ALANINE AMINOTRANSFERASE 32 Units/L (12-78); ALKALINE PHOSPHATASE 197 Units/L (46-116); ASPARTATE AMINO TRANSFERASE 45 Units/L (15-37); BLOOD UREA NITROGEN 7 mg/dL (7-18); CALCIUM 9.4 mg/dL (8.5-10.1); CARBON DIOXIDE 23.4 mmol/L (21-32); CHLORIDE 104 mmol/L (98-107); CREATININE 0.93 mg/dL (0.55-1.02); SODIUM 137 mmol/L (136-145); eGFR NON BLACK RACES > 60 (>60)
[2018-04-28] MEDS: DEMEROL INJ IVP PRN ×2 (05:56→10:15)
[2018-04-28] MEDS: XANAX PO PRN ×3 (05:56→20:23)
[2018-04-28] MEDS: NS + KCL 20 MEQ/L 1,000 ML IV SCH ×2 (05:59→19:07)
[2018-04-28] MEDS: LOVENOX INJ 30 MG SYR SC SCH (08:50)
[2018-04-28] MEDS: LEVAQUIN PREMIX IV 500 MG 500 MG/100 ML BAG IV SCH (08:54)
[2018-04-28] MEDS: PROTONIX INJ 40 MG VIAL IVP SCH (08:54)
[2018-04-28 09:18] LABS: AMYLASE 39 Units/L (25-115); LIPASE 237 Units/L (73-393)
[2018-04-28] MEDS: REGLAN INJ 10 MG VIAL IVP PRN ×3 (10:15→20:27)
[2018-04-28] MEDS ORDERED: BUTT CREAM (COMPOUND) ONE (12:12)
[2018-04-28] MEDS ORDERED: BUTT CREAM (COMPOUND) TOP PRN (12:13)
[2018-04-28] MEDS ORDERED: MORPHINE SULFATE INJ 2 MG INJ IVP ONE (12:35)
--- NOTE | 2018-04-28 13:28 | PCM.PROG ---
Progress Note - Progress Note for Day of Date of Exam: 04/28/18 - Subjective Subjective: 63 WF ER ADMISSION ON 04/24 WITH ACUTE PANCREATITIS. PT CURRENTLY NPO WITH IV HYDRATION, PAIN AND NAUSEA CONTROL. RESP THERAPY FOR COPD AND RESP FAILURE,. PT HAD IMPROVED AMYLASE AND LIPASE ON 04/27 RESUMED DIET AND CO VOMITING ALL NIGHT. KUB THIS AM, IV REGLAN, AMYLASE AND LIPASE TODAY - Past Medical Family Social History Past Med/Fam/Surg Hx: No changes since H&P Allergies: Allergies ketorolac [From Toradol] Allergy (Verified 03/18/18 10:13) nalbuphine [From Nubain] Allergy (Verified 03/18/18 10:13) Penicillins Allergy (Verified 03/18/18 10:13) Sulfa (Sulfonamide Antibiotics) [SULFA] Allergy (Verified 03/18/18 10:13) BETA BLOCKERS Allergy (Uncoded 03/18/18 10:13) - Review of Systems ROS: No change since H&P - Vital Signs and I&O's Vital Signs: Temperature 97.6 F Pulse Rate [Right Brachial] 79 Pulse Rate 156 Respiratory Rate 20 Blood Pressure [Left Arm] 117/58 Blood Pressure [Right Arm] 151/65 Blood Pressure 157/74 O2 Sat by Pulse Oximetry 92 Intake and Output: Intake & Output 04/26/18 04/27/18 04/28/18 04/29/18 11:59 11:59 11:59 11:59 Intake Total 960 / 960 2460 / 2460 1600 / 1600 Output Total 730 / 730 Balance 230 / 230 2460 / 2460 1600 / 1600 - Physical Exam Oriented: Normal Eyes: Normal Ear: Normal Throat: Normal Respiratory: Diminished Cardiovascular: Normal : Normal Auscultation: Bowel Sounds: Normal Tenderness: Diffuse Skin: Decreased Turgur, Bruising Musculoskeletal: Right, Left, Shoulder, Leg, Back:Lumbar, Motor Deficit Psychiatric: Anxiety, Depression Affect: Depressed Speech Pattern: Clear, Appropriate - Laboratory and Diagnostics Result Diagrams: 04/28/18 04:15 04/28/18 04:15 Labs: 04/24/18 17:39 Urine,Catheterized Urine Culture - Final Klebsiella Pneumoniae Laboratory WBC 4.7 X10^3/uL (3.6-10.0) 04/28/18 04:15 RBC 3.36 X10^6/uL (3.5-5.4) L 04/28/18 04:15 Hgb 9.9 g/dL (12.0-16.0) L 04/28/18 04:15 Hct 29.5 % (36.0-47.0) L 04/28/18 04:15 MCV 87.9 fL (80.0-100.0) 04/28/18 04:15 MCH 29.4 pg (27.0-34.0) 04/28/18 04:15 MCHC 33.5 g/dL (33.0-35.0) 04/28/18 04:15 RDW 14.6 % (11.6-16.5) 04/28/18 04:15 Plt Count 183 X10^3/uL (150.0-450.0) 04/28/18 04:15 MPV 9.7 fL (7.4-11.0) 04/28/18 04:15 Neut % (Auto) 59.2 % (42.0-75.0) 04/28/18 04:15 Lymph % (Auto) 19.9 % (21.0-51.0) L 04/28/18 04:15 [place] % (Auto) 13.9 % (0.0-13.0) H 04/28/18 04:15 Eos % (Auto) 5.7 % (0.9-2.9) H 04/28/18 04:15 Baso % (Auto) 1.3 % (0.2-1.0) H 04/28/18 04:15 Neut # (Auto) 2.8 x10^3/uL (2.2-4.8) 04/28/18 04:15 Lymph # (Auto) 0.9 X10^3/uL (1.3-2.9) L 04/28/18 04:15 [place] # (Auto) 0.7 x10^3/uL (0.3-0.8) 04/28/18 04:15 Eos # (Auto) 0.3 x10^3/uL (0.0-0.2) H 04/28/18 04:15 Baso # (Auto) 0.1 X10^3/uL (0.0-0.1) 04/28/18 04:15 Absolute Nucleated RBC 0.1 /100WBC 04/28/18 04:15 Sodium 137 mmol/L (136-145) 04/28/18 04:15 Corrected Sodium TNP 04/28/18 04:15 Potassium 4.3 mmol/L (3.5-5.1) 04/28/18 04:15 Chloride 104 mmol/L (98-107) 04/28/18 04:15 Carbon Dioxide 23.4 mmol/L (21-32) 04/28/18 04:15 BUN 7 mg/dL (7-18) 04/28/18 04:15 Creatinine 0.93 mg/dL (0.55-1.02) 04/28/18 04:15 Est GFR (MDRD) Af Amer > 60 (>60) 04/28/18 04:15 Est GFR (MDRD) Non-Af > 60 (>60) 04/28/18 04:15 Glucose 69 mg/dL (65-99) 04/28/18 04:15 Uric Acid 14.5 mg/dL (2.6-6.0) H 04/25/18 04:50 Calcium 9.4 mg/dL (8.5-10.1) 04/28/18 04:15 Corrected Calcium 11.0 mg/dL (8.5-10.1) H 04/28/18 04:15 Magnesium 2.2 mg/dL (1.7-2.9) 04/26/18 04:30 Total Bilirubin 0.40 mg/dL (0.2-1.0) 04/28/18 04:15 AST 45 Units/L (15-37) H 04/28/18 04:15 ALT 32 Units/L (12-78) 04/28/18 04:15 Alkaline Phosphatase 197 Units/L (46-116) H 04/28/18 04:15 Creatine Kinase 20 Units/L (26-192) L 04/28/18 02:30 CK-MB (CK-2) < 1.0 ng/mL (0-4.0) 04/28/18 02:30 CK/CKMB % Calc 5.0 % (<4) 04/28/18 02:30 Troponin I < 0.02 ng/mL (0-1.5) 04/28/18 02:30 Total Protein 6.0 g/dL (6.4-8.2) L 04/28/18 04:15 Albumin 2.0 g/dL (3.4-5.0) L 04/28/18 04:15 Globulin 4.0 g/dL (2.5-4.5) 04/28/18 04:15 Albumin/Globulin Ratio 0.5 Ratio (1.1-2.1) L 04/28/18 04:15 Amylase 39 Units/L (25-115) 04/28/18 04:15 Lipase 237 Units/L (73-393) 04/28/18 04:15 Specimen Type Catherized urine 04/24/18 17:39 Urine Color Yellow (YELLOW) 04/24/18 17:39 Urine Appearance Slightly hazy (CLEAR) 04/24/18 17:39 Urine pH 5.0 (5.0 - 8.0) 04/24/18 17:39 Ur Specific [place] 1.020 (1.000-1.030) 04/24/18 17:39 Urine Protein 2+ (NEGATIVE) 04/24/18 17:39 Urine Glucose (UA) Negative (NEGATIVE) 04/24/18 17:39 Urine Ketones Negative (NEGATIVE) 04/24/18 17:39 Urine Occult Blood 2+ (NEGATIVE) 04/24/18 17:39 Urine Nitrite Positive (NEGATIVE) 04/24/18 17:39 Urine Bilirubin Negative (NEGATIVE) 04/24/18 17:39 Urine Urobilinogen Normal (NORMAL) 04/24/18 17:39 Ur Leukocyte Esterase 1+ (NEGATIVE) 04/24/18 17:39 Urine RBC 5-10 /HPF (NONE SEEN) 04/24/18 17:39 Urine WBC 10-20 /HPF (NONE SEEN) 04/24/18 17:39 Ur Squamous Epith Cells Rare /HPF (NEGATIVE) 04/24/18 17:39 Urine Bacteria 3+ /HPF (NEGATIVE) 04/24/18 17:39 Ur Culture Indicated? Yes/culture set up 04/24/18 17:39 - Plan (1) Pancreatitis Status: Acute Plan: REPEAT AM LABS, CBC CMP, STAT AMYLASE AND LIPASE. RESUME RESP REGIMEN, JET NEBS, O2. PPI, IV REGLAN. NPO, HYDRATION, PAIN AND NAUSEA CONTROL (2) COPD exacerbation Status: Acute (3) Pancreatic abnormality Status: Acute (4) Hypertension Status: Chronic (5) COPD (chronic obstructive pulmonary disease) Status: Acute Qualifiers: COPD type: COPD with acute exacerbation Qualified Code(s): J44.1 - Chronic obstructive pulmonary disease with (acute) exacerbation (6) GERD (gastroesophageal reflux disease) Status: Chronic (7) Depression Status: Chronic
[2018-04-28 14:00] LABS: CKMB % 4.4 % (<4); CREATINE KINASE 23 Units/L (26-192); CREATINE KINASE MB < 1.0 ng/mL (0-4.0); TROPONIN I 0.04 ng/mL (0-1.5)
[2018-04-28] MEDS ORDERED: LEVSIN/MAALOX/LIDOC VISC PO ONE (15:59)
[2018-04-28 16:30] LABS: ABG ALLEN TEST POS; ABG BASE EXCESS -5.6 mmol/L (-2.0-2.0); FRACTIONATED INSPIRED OXYGEN 32
--- NOTE | 2018-04-28 16:54 | RAD ---
History: Shortness of breath Study: Portable upright AP chest Comparison: February 05, 2018 Findings: The heart size is normal. There is a right subclavian Port-A-Cath unchanged. The lungs are grossly clear. There is no edema or effusion. Impression: No acute cardiopulmonary disease Reported By:
[2018-04-28] MEDS: XOPENEX 1.25 MG/3 ML NEBULE NEB SCH (21:03)
[2018-04-29] MEDS: REGLAN INJ 10 MG VIAL IVP PRN ×4 (01:35→20:02)
[2018-04-29] MEDS: MORPHINE SULFATE INJ 2 MG INJ IVP PRN ×2 (01:35→07:20)
[2018-04-29] MEDS: TYLENOL 325 MG TAB PO PRN ×3 (05:30→22:00)
[2018-04-29] MEDS: XANAX PO PRN ×3 (05:30→20:02)
[2018-04-29 06:12] LABS: BASOPHILS # (AUTO) 0.1 X10^3/uL (0.0-0.1); BASOPHILS % (AUTO) 1.2 % (0.2-1.0); EOSINOPHILS # (AUTO) 0.3 x10^3/uL (0.0-0.2); EOSINOPHILS % (AUTO) 4.2 % (0.9-2.9); HEMATOCRIT 32.5 % (36.0-47.0); HEMOGLOBIN 10.9 g/dL (12.0-16.0); LYMPHOCYTES # (AUTO) 1.6 X10^3/uL (1.3-2.9); MEAN CORPUSCULAR HEMOGLOBIN 29.5 pg (27.0-34.0); MEAN CORPUSCULAR HGB CONC 33.6 g/dL (33.0-35.0); MEAN PLATELET VOLUME 9.9 fL (7.4-11.0); MONOCYTES # (AUTO) 0.7 x10^3/uL (0.3-0.8); MONOCYTES % (AUTO) 10.5 % (0.0-13.0); NEUTROPHILS # (AUTO) 4.2 x10^3/uL (2.2-4.8); NEUTROPHILS % (AUTO) 61.1 % (42.0-75.0); PLATELET COUNT 221 X10^3/uL (150.0-450.0); RED CELL DISTRIBUTION WIDTH 14.7 % (11.6-16.5); WHITE BLOOD COUNT 6.9 X10^3/uL (3.6-10.0)
[2018-04-29 06:37] LABS: ALANINE AMINOTRANSFERASE 29 Units/L (12-78); ALBUMIN 2.1 g/dL (3.4-5.0); ALKALINE PHOSPHATASE 214 Units/L (46-116); ASPARTATE AMINO TRANSFERASE 48 Units/L (15-37); BLOOD UREA NITROGEN 6 mg/dL (7-18); CALCIUM 9.7 mg/dL (8.5-10.1); CARBON DIOXIDE 19.4 mmol/L (21-32); CHLORIDE 105 mmol/L (98-107); COR CA(FOR HYPOALB) 11.2 mg/dL (8.5-10.1); CREATININE 0.98 mg/dL (0.55-1.02); SODIUM 138 mmol/L (136-145); TOTAL PROTEIN 6.5 g/dL (6.4-8.2); eGFR NON BLACK RACES > 60 (>60)
[2018-04-29] MEDS ORDERED: DUONEB 0.5 MG/3 MG ONE ×3 (08:52→13:41)
[2018-04-29] MEDS: DUONEB 0.5 MG/3 MG NEB SCH ×4 (08:56→20:35)
[2018-04-29] MEDS: LEVAQUIN PREMIX IV 500 MG 500 MG/100 ML BAG IV SCH (09:42)
[2018-04-29] MEDS: LOVENOX INJ 30 MG SYR SC SCH (09:42)
[2018-04-29] MEDS: PROTONIX INJ 40 MG VIAL IVP SCH (09:42)
[2018-04-29] MEDS: NS + KCL 20 MEQ/L 1,000 ML IV SCH ×2 (09:47→20:02)
[2018-04-29] MEDS: ROXICODONE TAB 5 MG PO PRN ×3 (10:40→22:31)
--- NOTE | 2018-04-29 12:11 | DR.CONSULT ---
Consult - Consultation for Day of: Date: 04/29/18 - Chief Complaint Chief Complaint: Patient referred for pancreatitis. Patient with complaints abdominal pain, nausea, vomiting and diarrhea. - History of Present Illness History of Present Illness: Patient is a 63yo female who was referred for pancreatitis. Patient with complaints diffuse abdominal pain, nausea, vomiting last vomited yesterda and diarrhea. She denies dysphagia, dyspepsia, c onstipation, melena and hematochezia. Patient states she went to [place] and biopsy of pancreas was done and came back as benign. hgb is stable at 10.9, Hct 32.5, Amylase and lipase normal. Abdomena dn pelvis CT showed Stable prominence of the pancreatic body and tail with new mild peripancreatic stranding, suggestive for acute pancreatitis. Underlying neoplasm is still not entirely excluded and MRI is again recommended for further evaluation on a nonemergent basis. Enlarged fatty liver and additional stable findings as above. Patient had EGD 02/06/18 which showed moderate gastritis with few erosions and mild distal esophagitis. Patient noted to have diffuse abdominal tenderness on palpitation of abdomen. - Past Medical History Past Medical History: Coronary Artery Disease, Hypertension, Anxiety, COPD, Asthma, GERD, Arthritis, CHF - Past Surgical History Surgical History: Abdominal Surgery, Appendectomy, Bowel Resection, Cholecystectomy - Family History Family Medical History: Diabetes Mellitus, Hypertension - Social History Does patient currently use any type of tobacco product: No Have you used tobacco products in the last 12 months: No Type of Tobacco Use: None Does any household member use tobacco: No Alcohol Use: None Drug Use: Prescription Drugs - Medications Home Medications: ketorolac [From Toradol] Allergy (Verified 03/18/18 10:13) nalbuphine [From Nubain] Allergy (Verified 03/18/18 10:13) Penicillins Allergy (Verified 03/18/18 10:13) Sulfa (Sulfonamide Antibiotics) [SULFA] Allergy (Verified 03/18/18 10:13) BETA BLOCKERS Allergy (Uncoded 03/18/18 10:13) - Review of Systems Gastrointestinal: Nausea, Vomiting, Abdominal Pain (diffuse), Diarrhea. denies: Constipation, Melena, Hematochezia - Physical Exam Vital Signs: Temperature 97.4 F Pulse Rate [Right Brachial] 97 Pulse Rate 101 Respiratory Rate 18 Blood Pressure [Left Arm] 117/58 Blood Pressure [Right Arm] 102/52 Blood Pressure 157/74 O2 Sat by Pulse Oximetry 96 Oriented: Normal Eyes: Normal Ear: Normal Nose: Normal Throat: Normal Respiratory: Clear Throughout Cardiovascular: Normal Auscultation: Bowel Sounds: Normal Palpation: Normal, Other (no distention). negative: Spleen Enlarged, Liver Enlarged, Mass Pulsatile Tenderness: Diffuse Skin: Normal Musculoskeletal: Normal Psychiatric: Normal Mood Description: Calm Affect: Normal Speech Pattern: Clear, Appropriate - Plan Plan: Assessment. 1. Chronic pancreatitis, Patient had EUs with Bx that was found to be negative. 2. GERD. Plan. 1. Start Creon 2 caps with each meal and 1 with each snack, Reglan IV. 2. Protonix IV. Plan reviewed with Dr. Cruz - Allergies Allergies/Adverse Reactions: Allergies Allergy/AdvReac Type Severity Reaction Status Date / Time ketorolac [From Toradol] Allergy Verified 03/18/18 10:13 nalbuphine [From Nubain] Allergy Verified 03/18/18 10:13 Penicillins Allergy Verified 03/18/18 10:13 Sulfa (Sulfonamide Allergy Verified 03/18/18 10:13 Antibiotics) [SULFA] BETA BLOCKERS Allergy Uncoded 03/18/18 10:13
--- NOTE | 2018-04-29 13:09 | PCM.PROG ---
Progress Note - Progress Note for Day of Date of Exam: 04/29/18 - Subjective Subjective: 63 WF ER ADMISSION ON 04/24 WITH ACUTE PANCREATITIS. PT CURRENTLY NPO WITH IV HYDRATION, PAIN AND NAUSEA CONTROL. RESP THERAPY FOR COPD AND RESP FAILURE. PT HELP NPO YESTERDAY DUE TO RETURNED N/V. PT AMYLASE AND LIPASE NORMAL. PT REFUSED KUB DUE TO "UNABLE TO LAY FLAT" CONSULTED ANYI, JANEE JOSEPH, DISCUSSED PLAN FOR OUTPT MANAGEMENT OF CHRONIC PANCREATITIS - Past Medical Family Social History Past Med/Fam/Surg Hx: No changes since H&P Allergies: Allergies ketorolac [From Toradol] Allergy (Verified 03/18/18 10:13) nalbuphine [From Nubain] Allergy (Verified 03/18/18 10:13) Penicillins Allergy (Verified 03/18/18 10:13) Sulfa (Sulfonamide Antibiotics) [SULFA] Allergy (Verified 03/18/18 10:13) BETA BLOCKERS Allergy (Uncoded 03/18/18 10:13) - Review of Systems ROS: No change since H&P - Vital Signs and I&O's Vital Signs: Temperature 97.9 F Pulse Rate [Right Brachial] 105 Pulse Rate 101 Respiratory Rate 20 Blood Pressure [Left Arm] 117/58 Blood Pressure [Right Arm] 107/77 Blood Pressure 157/74 O2 Sat by Pulse Oximetry 98 Intake and Output: Intake & Output 04/27/18 04/28/18 04/29/18 04/30/18 11:59 11:59 11:59 11:59 Intake Total 2460 / 2460 1600 / 1600 1330 / 1330 Balance 2460 / 2460 1600 / 1600 1330 / 1330 - Physical Exam Oriented: Normal Eyes: Normal Ear: Normal Nose: Normal Throat: Normal Respiratory: Diminished Cardiovascular: Normal : Normal Auscultation: Bowel Sounds: Normal Tenderness: Diffuse Skin: Normal Musculoskeletal: Normal Psychiatric: Normal Mood Description: Calm Affect: Normal Speech Pattern: Clear, Appropriate - Laboratory and Diagnostics Result Diagrams: 04/29/18 05:18 04/29/18 05:18 Labs: 04/24/18 17:39 Urine,Catheterized Urine Culture - Final Klebsiella Pneumoniae Laboratory WBC 6.9 X10^3/uL (3.6-10.0) 04/29/18 05:18 RBC 3.70 X10^6/uL (3.5-5.4) 04/29/18 05:18 Hgb 10.9 g/dL (12.0-16.0) L 04/29/18 05:18 Hct 32.5 % (36.0-47.0) L 04/29/18 05:18 MCV 88.0 fL (80.0-100.0) 04/29/18 05:18 MCH 29.5 pg (27.0-34.0) 04/29/18 05:18 MCHC 33.6 g/dL (33.0-35.0) 04/29/18 05:18 RDW 14.7 % (11.6-16.5) 04/29/18 05:18 Plt Count 221 X10^3/uL (150.0-450.0) 04/29/18 05:18 MPV 9.9 fL (7.4-11.0) 04/29/18 05:18 Neut % (Auto) 61.1 % (42.0-75.0) 04/29/18 05:18 Lymph % (Auto) 23.0 % (21.0-51.0) 04/29/18 05:18 [place] % (Auto) 10.5 % (0.0-13.0) 04/29/18 05:18 Eos % (Auto) 4.2 % (0.9-2.9) H 04/29/18 05:18 Baso % (Auto) 1.2 % (0.2-1.0) H 04/29/18 05:18 Neut # (Auto) 4.2 x10^3/uL (2.2-4.8) 04/29/18 05:18 Lymph # (Auto) 1.6 X10^3/uL (1.3-2.9) 04/29/18 05:18 [place]eller # (Auto) 0.7 x10^3/uL (0.3-0.8) 04/29/18 05:18 Eos # (Auto) 0.3 x10^3/uL (0.0-0.2) H 04/29/18 05:18 Baso # (Auto) 0.1 X10^3/uL (0.0-0.1) 04/29/18 05:18 Absolute Nucleated RBC 0.2 /100WBC 04/29/18 05:18 Sample Site Rr 04/28/18 16:24 ABG pH 7.400 (7.35-7.45) 04/28/18 16:24 ABG pCO2 29.0 mmHg (35.0-45.0) L 04/28/18 16:24 ABG pO2 79.0 mmHg (80.0-100.0) L 04/28/18 16:24 ABG HCO3 18.0 mmol/L (22-26) L 04/28/18 16:24 ABG O2 Saturation 96.0 % (90-100) 04/28/18 16:24 ABG Base Excess -5.6 mmol/L (-2.0-2.0) L 04/28/18 16:24 Sameer Test Pos 04/28/18 16:24 A-a Gradient 113.0 mmHg 04/28/18 16:24 FiO2 32 04/28/18 16:24 Blood Gas Comments Pt baltazar well. mm/cdn 04/28/18 16:24 Sodium 138 mmol/L (136-145) 04/29/18 05:18 Corrected Sodium TNP 04/29/18 05:18 Potassium 4.7 mmol/L (3.5-5.1) 04/29/18 05:18 Chloride 105 mmol/L (98-107) 04/29/18 05:18 Carbon Dioxide 19.4 mmol/L (21-32) L 04/29/18 05:18 BUN 6 mg/dL (7-18) L 04/29/18 05:18 Creatinine 0.98 mg/dL (0.55-1.02) 04/29/18 05:18 Est GFR (MDRD) Af Amer > 60 (>60) 04/29/18 05:18 Est GFR (MDRD) Non-Af > 60 (>60) 04/29/18 05:18 Glucose 72 mg/dL (65-99) 04/29/18 05:18 Uric Acid 14.5 mg/dL (2.6-6.0) H 04/25/18 04:50 Calcium 9.7 mg/dL (8.5-10.1) 04/29/18 05:18 Corrected Calcium 11.2 mg/dL (8.5-10.1) H 04/29/18 05:18 Magnesium 2.2 mg/dL (1.7-2.9) 04/26/18 04:30 Total Bilirubin 0.40 mg/dL (0.2-1.0) 04/29/18 05:18 AST 48 Units/L (15-37) H 04/29/18 05:18 ALT 29 Units/L (12-78) 04/29/18 05:18 Alkaline Phosphatase 214 Units/L (46-116) H 04/29/18 05:18 Creatine Kinase 23 Units/L (26-192) L 04/28/18 13:20 CK-MB (CK-2) < 1.0 ng/mL (0-4.0) 04/28/18 13:20 CK/CKMB % Calc 4.4 % (<4) 04/28/18 13:20 Troponin I 0.04 ng/mL (0-1.5) 04/28/18 13:20 Total Protein 6.5 g/dL (6.4-8.2) 04/29/18 05:18 Albumin 2.1 g/dL (3.4-5.0) L 04/29/18 05:18 Globulin 4.4 g/dL (2.5-4.5) 04/29/18 05:18 Albumin/Globulin Ratio 0.5 Ratio (1.1-2.1) L 04/29/18 05:18 Amylase 39 Units/L (25-115) 04/28/18 04:15 Lipase 237 Units/L (73-393) 04/28/18 04:15 Specimen Type Catherized urine 04/24/18 17:39 Urine Color Yellow (YELLOW) 04/24/18 17:39 Urine Appearance Slightly hazy (CLEAR) 04/24/18 17:39 Urine pH 5.0 (5.0 - 8.0) 04/24/18 17:39 Ur Specific [place] 1.020 (1.000-1.030) 04/24/18 17:39 Urine Protein 2+ (NEGATIVE) 04/24/18 17:39 Urine Glucose (UA) Negative (NEGATIVE) 04/24/18 17:39 Urine Ketones Negative (NEGATIVE) 04/24/18 17:39 Urine Occult Blood 2+ (NEGATIVE) 04/24/18 17:39 Urine Nitrite Positive (NEGATIVE) 04/24/18 17:39 Urine Bilirubin Negative (NEGATIVE) 04/24/18 17:39 Urine Urobilinogen Normal (NORMAL) 04/24/18 17:39 Ur Leukocyte Esterase 1+ (NEGATIVE) 04/24/18 17:39 Urine RBC 5-10 /HPF (NONE SEEN) 04/24/18 17:39 Urine WBC 10-20 /HPF (NONE SEEN) 04/24/18 17:39 Ur Squamous Epith Cells Rare /HPF (NEGATIVE) 04/24/18 17:39 Urine Bacteria 3+ /HPF (NEGATIVE) 04/24/18 17:39 Ur Culture Indicated? Yes/culture set up 04/24/18 17:39 - Plan (1) Pancreatitis Status: Acute Plan: REPEAT AM LABS, CBC CMP, AMYLASE AND LIPASE. RESP REGIMEN, JET NEBS, O2. PPI, IV REGLAN CONSULT IRFAN, D/C IV NARCOTIC, RESTARTED HOME OXYCODONE PO FOR PAIN CONTROL. NPO, HYDRATION, PAIN AND NAUSEA CONTROL (2) COPD exacerbation Status: Acute (3) Pancreatic abnormality Status: Acute (4) Hypertension Status: Chronic (5) COPD (chronic obstructive pulmonary disease) Status: Acute Qualifiers: COPD type: COPD with acute exacerbation Qualified Code(s): J44.1 - Chronic obstructive pulmonary disease with (acute) exacerbation (6) GERD (gastroesophageal reflux disease) Status: Chronic (7) Depression Status: Chronic
[2018-04-29] MEDS: CREON PO SCH ×2 (13:39→17:19)
[2018-04-29] MEDS: XOPENEX 1.25 MG/3 ML NEBULE NEB SCH (13:42)
[2018-04-29] MEDS: DUONEB 0.5 MG/3 MG NEB PRN (13:45)
[2018-04-29] MEDS: ROBITUSSIN DM PO PRN ×2 (15:29→22:31)
[2018-04-29] MEDS ORDERED: DUONEB 0.5 MG/3 MG NEB SCH (17:00)
[2018-04-30] MEDS: DUONEB 0.5 MG/3 MG NEB PRN (06:00)
[2018-04-30] MEDS: XANAX PO PRN ×3 (06:05→20:33)
[2018-04-30] MEDS: REGLAN INJ 10 MG VIAL IVP PRN (06:06)
[2018-04-30 06:13] LABS: BASOPHILS # (AUTO) 0.2 X10^3/uL (0.0-0.1); BASOPHILS % (AUTO) 1.5 % (0.2-1.0); EOSINOPHILS # (AUTO) 0.6 x10^3/uL (0.0-0.2); EOSINOPHILS % (AUTO) 3.8 % (0.9-2.9); HEMATOCRIT 37.7 % (36.0-47.0); HEMOGLOBIN 12.3 g/dL (12.0-16.0); LYMPHOCYTES # (AUTO) 3.5 X10^3/uL (1.3-2.9); LYMPHOCYTES % (AUTO) 23.7 % (21.0-51.0); MEAN CORPUSCULAR HEMOGLOBIN 29.1 pg (27.0-34.0); MEAN CORPUSCULAR HGB CONC 32.6 g/dL (33.0-35.0); MEAN CORPUSCULAR VOLUME 89.2 fL (80.0-100.0); MEAN PLATELET VOLUME 10.5 fL (7.4-11.0); MONOCYTES # (AUTO) 1.3 x10^3/uL (0.3-0.8); MONOCYTES % (AUTO) 8.9 % (0.0-13.0); NEUTROPHILS # (AUTO) 9.2 x10^3/uL (2.2-4.8); NEUTROPHILS % (AUTO) 62.1 % (42.0-75.0); PLATELET COUNT 301 X10^3/uL (150.0-450.0); RED BLOOD COUNT 4.22 X10^6/uL (3.5-5.4); WHITE BLOOD COUNT 14.9 X10^3/uL (3.6-10.0)
[2018-04-30 06:30] LABS: ALANINE AMINOTRANSFERASE 34 Units/L (12-78); ALBUMIN 2.4 g/dL (3.4-5.0); ALKALINE PHOSPHATASE 263 Units/L (46-116); ASPARTATE AMINO TRANSFERASE 92 Units/L (15-37); BLOOD UREA NITROGEN 5 mg/dL (7-18); CARBON DIOXIDE 16.9 mmol/L (21-32); CHLORIDE 104 mmol/L (98-107); COR CA(FOR HYPOALB) 11.3 mg/dL (8.5-10.1); CREATININE 1.13 mg/dL (0.55-1.02); SODIUM 135 mmol/L (136-145); TOTAL PROTEIN 7.3 g/dL (6.4-8.2); eGFR NON BLACK RACES 51 (>60)
[2018-04-30] MEDS ORDERED: ATIVAN INJ 2 MG VIAL IVP SCH (06:43)
[2018-04-30] MEDS: DUONEB 0.5 MG/3 MG NEB SCH ×5 (08:55→20:40)
[2018-04-30] MEDS: LOVENOX INJ 30 MG SYR SC SCH (08:58)
[2018-04-30] MEDS: LEVAQUIN PREMIX IV 500 MG 500 MG/100 ML BAG IV SCH (08:58)
[2018-04-30] MEDS: PROTONIX INJ 40 MG VIAL IVP SCH (08:58)
[2018-04-30 09:02] LABS: ABG BASE EXCESS -8.7 mmol/L (-2.0-2.0)
[2018-04-30 09:03] LABS: ABG ALLEN TEST POS; ABG HCO3 16.6 mmol/L (22-26); FRACTIONATED INSPIRED OXYGEN 32
[2018-04-30] MEDS: CREON PO SCH ×3 (09:03→17:20)
[2018-04-30] MEDS: ROXICODONE TAB 5 MG PO PRN ×3 (09:11→23:44)
[2018-04-30] MEDS ORDERED: LASIX IVP ONE (09:23)
[2018-04-30] MEDS: SOLU-Medrol 125 MG VIAL IVP SCH ×4 (10:25→21:03)
[2018-04-30] MEDS: NS + KCL 20 MEQ/L 1,000 ML IV SCH ×3 (10:32→13:28)
[2018-04-30 14:05] LABS: BASOPHILS % (AUTO) 0.6 % (0.2-1.0); EOSINOPHILS % (AUTO) 0.1 % (0.9-2.9); HEMOGLOBIN 11.1 g/dL (12.0-16.0); LYMPHOCYTES # (AUTO) 0.6 X10^3/uL (1.3-2.9); LYMPHOCYTES % (AUTO) 7.3 % (21.0-51.0); MEAN CORPUSCULAR HEMOGLOBIN 28.8 pg (27.0-34.0); MEAN CORPUSCULAR HGB CONC 32.7 g/dL (33.0-35.0); MEAN CORPUSCULAR VOLUME 88.2 fL (80.0-100.0); MEAN PLATELET VOLUME 9.3 fL (7.4-11.0); MONOCYTES # (AUTO) 0.2 x10^3/uL (0.3-0.8); MONOCYTES % (AUTO) 2.6 % (0.0-13.0); NEUTROPHILS # (AUTO) 7.1 x10^3/uL (2.2-4.8); NEUTROPHILS % (AUTO) 89.4 % (42.0-75.0); PLATELET COUNT 221 X10^3/uL (150.0-450.0); RED BLOOD COUNT 3.86 X10^6/uL (3.5-5.4)
[2018-04-30] MEDS: NS 1000 ML 1,000 ML IV SCH (15:09)
--- NOTE | 2018-04-30 17:26 | PCM.PROG ---
Progress Note - Progress Note for Day of Date of Exam: 04/30/18 - Subjective Subjective: 63 WF ER ADMISSION ON 04/24 WITH ACUTE PANCREATITIS.CONSULTED IRFAN, CONTINUE REGLAN, DISCUSSED PLAN FOR OUTPT MANAGEMENT OF CHRONIC PANCREATITIS. PT CURRENTLY NPO WITH IV HYDRATION, PAIN AND NAUSEA CONTROL. RESP THERAPY FOR COPD AND RESP FAILURE. NURSING STAFF REPORTS PT HAD "PANIC ATTACK" EARLY THIS AM WITH SOB, PT WAS REFUSING CXR AND ASKING FOR ANTIAXIETY MEDICATION. PT EDUCATED ON SUPPRESSION OF RESP DRIVE AND S/E OF HYPOTENSION. IV LASIX X 1 DOSE , IV SOLU MEDROL, CONTINUE JET NEBS, VENTI MASK PRN - Past Medical Family Social History Past Med/Fam/Surg Hx: No changes since H&P Allergies: Allergies ketorolac [From Toradol] Allergy (Verified 03/18/18 10:13) nalbuphine [From Nubain] Allergy (Verified 03/18/18 10:13) Penicillins Allergy (Verified 03/18/18 10:13) Sulfa (Sulfonamide Antibiotics) [SULFA] Allergy (Verified 03/18/18 10:13) BETA BLOCKERS Allergy (Uncoded 03/18/18 10:13) - Review of Systems ROS: No change since H&P - Vital Signs and I&O's Vital Signs: Temperature 97.5 F Pulse Rate [Right Brachial] 106 Pulse Rate 109 Respiratory Rate 26 Blood Pressure [Left Arm] 117/58 Blood Pressure [Right Arm] 120/71 Blood Pressure 157/74 O2 Sat by Pulse Oximetry 98 Intake and Output: Intake & Output 04/28/18 04/29/18 04/30/18 05/01/18 11:59 11:59 11:59 11:59 Intake Total 1600 / 1600 1330 / 1330 1707 / 1707 0 / 0 Balance 1600 / 1600 1330 / 1330 1707 / 1707 0 / 0 - Physical Exam Oriented: Normal Eyes: Normal Ear: Normal Nose: Normal Throat: Normal Respiratory: Diminished, Wheezes Cardiovascular: Normal : Normal Auscultation: Bowel Sounds: Normal Tenderness: Diffuse Skin: Normal Musculoskeletal: Normal Psychiatric: Normal Mood Description: Calm Affect: Normal Speech Pattern: Clear, Appropriate - Laboratory and Diagnostics Result Diagrams: 04/30/18 13:45 04/30/18 05:37 Labs: 04/24/18 17:39 Urine,Catheterized Urine Culture - Final Klebsiella Pneumoniae Laboratory WBC 8.0 X10^3/uL (3.6-10.0) 04/30/18 13:45 RBC 3.86 X10^6/uL (3.5-5.4) 04/30/18 13:45 Hgb 11.1 g/dL (12.0-16.0) L 04/30/18 13:45 Hct 34.0 % (36.0-47.0) L 04/30/18 13:45 MCV 88.2 fL (80.0-100.0) 04/30/18 13:45 MCH 28.8 pg (27.0-34.0) 04/30/18 13:45 MCHC 32.7 g/dL (33.0-35.0) L 04/30/18 13:45 RDW 15.0 % (11.6-16.5) 04/30/18 13:45 Plt Count 221 X10^3/uL (150.0-450.0) 04/30/18 13:45 MPV 9.3 fL (7.4-11.0) 04/30/18 13:45 Neut % (Auto) 89.4 % (42.0-75.0) H 04/30/18 13:45 Lymph % (Auto) 7.3 % (21.0-51.0) L 04/30/18 13:45 [place] % (Auto) 2.6 % (0.0-13.0) 04/30/18 13:45 Eos % (Auto) 0.1 % (0.9-2.9) L 04/30/18 13:45 Baso % (Auto) 0.6 % (0.2-1.0) 04/30/18 13:45 Neut # (Auto) 7.1 x10^3/uL (2.2-4.8) H 04/30/18 13:45 Lymph # (Auto) 0.6 X10^3/uL (1.3-2.9) L 04/30/18 13:45 [place] # (Auto) 0.2 x10^3/uL (0.3-0.8) L 04/30/18 13:45 Eos # (Auto) 0.0 x10^3/uL (0.0-0.2) 04/30/18 13:45 Baso # (Auto) 0.0 X10^3/uL (0.0-0.1) 04/30/18 13:45 Absolute Nucleated RBC 0.0 /100WBC 04/30/18 13:45 Sample Site Right radial 04/30/18 08:46 ABG pH 7.310 (7.35-7.45) L 04/30/18 08:46 ABG pCO2 33.0 mmHg (35.0-45.0) L 04/30/18 08:46 ABG pO2 59.0 mmHg (80.0-100.0) L 04/30/18 08:46 ABG HCO3 16.6 mmol/L (22-26) L* 04/30/18 08:46 ABG O2 Saturation 87.0 % (90-100) L 04/30/18 08:46 ABG Base Excess -8.7 mmol/L (-2.0-2.0) L 04/30/18 08:46 Sameer Test Pos 04/30/18 08:46 A-a Gradient 128.0 mmHg 04/30/18 08:46 FiO2 32 04/30/18 08:46 Blood Gas Comments [place] well aw 04/30/18 08:46 Sodium 135 mmol/L (136-145) L 04/30/18 05:37 Corrected Sodium TNP 04/30/18 05:37 Potassium 5.3 mmol/L (3.5-5.1) H 04/30/18 05:37 Chloride 104 mmol/L (98-107) 04/30/18 05:37 Carbon Dioxide 16.9 mmol/L (21-32) L 04/30/18 05:37 BUN 5 mg/dL (7-18) L 04/30/18 05:37 Creatinine 1.13 mg/dL (0.55-1.02) H 04/30/18 05:37 Est GFR (MDRD) Af Amer > 60 (>60) 04/30/18 05:37 Est GFR (MDRD) Non-Af 51 (>60) L 04/30/18 05:37 Glucose 107 mg/dL (65-99) H 04/30/18 05:37 Uric Acid 14.5 mg/dL (2.6-6.0) H 04/25/18 04:50 Calcium 10.0 mg/dL (8.5-10.1) 04/30/18 05:37 Corrected Calcium 11.3 mg/dL (8.5-10.1) H 04/30/18 05:37 Magnesium 2.2 mg/dL (1.7-2.9) 04/26/18 04:30 Total Bilirubin 0.50 mg/dL (0.2-1.0) 04/30/18 05:37 AST 92 Units/L (15-37) H 04/30/18 05:37 ALT 34 Units/L (12-78) 04/30/18 05:37 Alkaline Phosphatase 263 Units/L (46-116) H 04/30/18 05:37 Creatine Kinase 23 Units/L (26-192) L 04/28/18 13:20 CK-MB (CK-2) < 1.0 ng/mL (0-4.0) 04/28/18 13:20 CK/CKMB % Calc 4.4 % (<4) 04/28/18 13:20 Troponin I 0.04 ng/mL (0-1.5) 04/28/18 13:20 Total Protein 7.3 g/dL (6.4-8.2) 04/30/18 05:37 Albumin 2.4 g/dL (3.4-5.0) L 04/30/18 05:37 Globulin 4.9 g/dL (2.5-4.5) H 04/30/18 05:37 Albumin/Globulin Ratio 0.5 Ratio (1.1-2.1) L 04/30/18 05:37 Amylase 39 Units/L (25-115) 04/28/18 04:15 Lipase 237 Units/L (73-393) 04/28/18 04:15 Specimen Type Catherized urine 04/24/18 17:39 Urine Color Yellow (YELLOW) 04/24/18 17:39 Urine Appearance Slightly hazy (CLEAR) 04/24/18 17:39 Urine pH 5.0 (5.0 - 8.0) 04/24/18 17:39 Ur Specific [place] 1.020 (1.000-1.030) 04/24/18 17:39 Urine Protein 2+ (NEGATIVE) 04/24/18 17:39 Urine Glucose (UA) Negative (NEGATIVE) 04/24/18 17:39 Urine Ketones Negative (NEGATIVE) 04/24/18 17:39 Urine Occult Blood 2+ (NEGATIVE) 04/24/18 17:39 Urine Nitrite Positive (NEGATIVE) 04/24/18 17:39 Urine Bilirubin Negative (NEGATIVE) 04/24/18 17:39 Urine Urobilinogen Normal (NORMAL) 04/24/18 17:39 Ur Leukocyte Esterase 1+ (NEGATIVE) 04/24/18 17:39 Urine RBC 5-10 /HPF (NONE SEEN) 04/24/18 17:39 Urine WBC 10-20 /HPF (NONE SEEN) 04/24/18 17:39 Ur Squamous Epith Cells Rare /HPF (NEGATIVE) 04/24/18 17:39 Urine Bacteria 3+ /HPF (NEGATIVE) 04/24/18 17:39 Ur Culture Indicated? Yes/culture set up 04/24/18 17:39 - Plan (1) Pancreatitis Status: Acute Plan: REPEAT AM LABS, CBC CMP, AMYLASE AND LIPASE. RESP REGIMEN, JET NEBS, O2. PPI, IV REGLAN, CONSULTED BY ANYI STARTED ON CREON. D/C IV NARCOTIC, RESTARTED HOME OXYCODONE PO FOR PAIN CONTROL. NPO, HYDRATION, PAIN AND NAUSEA CONTROL (2) COPD exacerbation Status: Acute Plan: SUPPLEMENTAL O2. JET NEBS, IV SOLU MEDROL. ABG, CXR (3) Pancreatic abnormality Status: Acute (4) Hypertension Status: Chronic (5) COPD (chronic obstructive pulmonary disease) Status: Acute Qualifiers: COPD type: COPD with acute exacerbation Qualified Code(s): J44.1 - Chronic obstructive pulmonary disease with (acute) exacerbation (6) GERD (gastroesophageal reflux disease) Status: Chronic (7) Depression Status: Chronic (8) DHARA (generalized anxiety disorder) Status: Chronic Plan: CONTINUE CURRENT MEDICATION. AVOID IV SEDATIVE DUE TO INCREASED RESP DEPRESSION (9) Adult failure to thrive Status: Acute Plan: DISCUSSED EXCHANGE ENGINEER ALF PLACEMENT WITH PT AND CAREGIVER, HOSPICE OPTIONS, PLAN OF CARE FOR D/C
[2018-04-30 18:27] LABS: ABG BASE EXCESS -10.7 mmol/L (-2.0-2.0); ABG HCO3 13.9 mmol/L (22-26)
[2018-04-30 18:28] LABS: ABG ALLEN TEST POS; FRACTIONATED INSPIRED OXYGEN 32
[2018-04-30] MEDS: ROBITUSSIN DM PO PRN (20:33)
[2018-05-01] MEDS: DUONEB 0.5 MG/3 MG NEB PRN ×2 (00:15→04:20)
[2018-05-01] MEDS: XANAX PO PRN ×2 (04:05→16:30)
[2018-05-01] MEDS: ROBITUSSIN DM PO PRN (04:05)
[2018-05-01] MEDS: SOLU-Medrol 125 MG VIAL IVP SCH ×3 (06:20→22:06)
[2018-05-01] MEDS: ROXICODONE TAB 5 MG PO PRN ×3 (06:20→20:00)
[2018-05-01 06:21] LABS: BASOPHILS % (AUTO) 0.4 % (0.2-1.0); HEMATOCRIT 30.8 % (36.0-47.0); HEMOGLOBIN 10.2 g/dL (12.0-16.0); LYMPHOCYTES # (AUTO) 0.6 X10^3/uL (1.3-2.9); LYMPHOCYTES % (AUTO) 11.6 % (21.0-51.0); MEAN CORPUSCULAR HEMOGLOBIN 29.2 pg (27.0-34.0); MEAN CORPUSCULAR HGB CONC 33.2 g/dL (33.0-35.0); MEAN CORPUSCULAR VOLUME 87.9 fL (80.0-100.0); MEAN PLATELET VOLUME 9.8 fL (7.4-11.0); MONOCYTES # (AUTO) 0.2 x10^3/uL (0.3-0.8); MONOCYTES % (AUTO) 4.9 % (0.0-13.0); NEUTROPHILS % (AUTO) 83.1 % (42.0-75.0); PLATELET COUNT 221 X10^3/uL (150.0-450.0); RED BLOOD COUNT 3.51 X10^6/uL (3.5-5.4); RED CELL DISTRIBUTION WIDTH 14.9 % (11.6-16.5); WHITE BLOOD COUNT 4.8 X10^3/uL (3.6-10.0)
[2018-05-01 06:49] LABS: ALANINE AMINOTRANSFERASE 39 Units/L (12-78); ALBUMIN 2.1 g/dL (3.4-5.0); ALKALINE PHOSPHATASE 220 Units/L (46-116); ASPARTATE AMINO TRANSFERASE 90 Units/L (15-37); BLOOD UREA NITROGEN 8 mg/dL (7-18); CALCIUM 9.3 mg/dL (8.5-10.1); CARBON DIOXIDE 18.5 mmol/L (21-32); CHLORIDE 102 mmol/L (98-107); COR CA(FOR HYPOALB) 10.8 mg/dL (8.5-10.1); COR NA(FOR HYPERGLY) 137 mmol/L (136-145); CREATININE 1.08 mg/dL (0.55-1.02); SODIUM 136 mmol/L (136-145); TOTAL PROTEIN 6.4 g/dL (6.4-8.2); eGFR NON BLACK RACES 54 (>60)
[2018-05-01] MEDS: LOVENOX INJ 30 MG SYR SC SCH (08:28)
[2018-05-01] MEDS: PROTONIX INJ 40 MG VIAL IVP SCH (08:28)
[2018-05-01] MEDS: LEVAQUIN PREMIX IV 500 MG 500 MG/100 ML BAG IV SCH (08:28)
[2018-05-01] MEDS: CREON PO SCH ×3 (08:29→17:51)
[2018-05-01] MEDS: DUONEB 0.5 MG/3 MG NEB SCH ×4 (09:21→21:16)
--- NOTE | 2018-05-01 11:00 | RAD ---
HISTORY: Cough, shortness of breath Study: Chest AP portable Comparison: 04/28/2018 Findings: There is a poor present on the right. The heart is enlarged. No congestive heart failure is noted. Th e right lung and left upper lung [place] are clear. There is increased density in the retrocardiac are a of the left lower lobe obscuring the left hemidiaphragm this is in part due to a left pleural effus ion however underlying atelectasis or infiltrate cannot be excluded. The bony thorax is unremarkable. IMPRESSION: Increased density retrocardiac area of the left lower lobe due in part to left pleural effusion how er underlying infiltrate or atelectasis cannot be excluded Mild cardiomegaly without congestive heart failure Reported By:
[2018-05-01] MEDS ORDERED: LASIX IVP ONE (17:14)
[2018-05-01] MEDS: NS 1000 ML 1,000 ML IV SCH (17:20)
[2018-05-02] MEDS: XANAX PO PRN ×2 (00:55→09:31)
[2018-05-02] MEDS: ROXICODONE TAB 5 MG PO PRN ×2 (04:09→09:30)
[2018-05-02] MEDS: SOLU-Medrol 125 MG VIAL IVP SCH (05:49)
[2018-05-02 06:45] LABS: BASOPHILS % (AUTO) 0.2 % (0.2-1.0); EOSINOPHILS % (AUTO) 0.1 % (0.9-2.9); HEMATOCRIT 29.6 % (36.0-47.0); LYMPHOCYTES # (AUTO) 0.4 X10^3/uL (1.3-2.9); LYMPHOCYTES % (AUTO) 7.8 % (21.0-51.0); MEAN CORPUSCULAR HEMOGLOBIN 29.3 pg (27.0-34.0); MEAN CORPUSCULAR HGB CONC 33.6 g/dL (33.0-35.0); MEAN CORPUSCULAR VOLUME 87.4 fL (80.0-100.0); MEAN PLATELET VOLUME 9.1 fL (7.4-11.0); MONOCYTES # (AUTO) 0.2 x10^3/uL (0.3-0.8); MONOCYTES % (AUTO) 4.4 % (0.0-13.0); NEUTROPHILS # (AUTO) 4.8 x10^3/uL (2.2-4.8); NEUTROPHILS % (AUTO) 87.5 % (42.0-75.0); PLATELET COUNT 256 X10^3/uL (150.0-450.0); RED BLOOD COUNT 3.39 X10^6/uL (3.5-5.4); RED CELL DISTRIBUTION WIDTH 14.8 % (11.6-16.5); WHITE BLOOD COUNT 5.5 X10^3/uL (3.6-10.0)
[2018-05-02 06:58] LABS: ALANINE AMINOTRANSFERASE 31 Units/L (12-78); ALBUMIN 2.3 g/dL (3.4-5.0); ALKALINE PHOSPHATASE 205 Units/L (46-116); ASPARTATE AMINO TRANSFERASE 51 Units/L (15-37); BLOOD UREA NITROGEN 12 mg/dL (7-18); CALCIUM 8.9 mg/dL (8.5-10.1); CARBON DIOXIDE 26.7 mmol/L (21-32); CHLORIDE 102 mmol/L (98-107); COR CA(FOR HYPOALB) 10.3 mg/dL (8.5-10.1); COR NA(FOR HYPERGLY) 139 mmol/L (136-145); CREATININE 1.07 mg/dL (0.55-1.02); SODIUM 138 mmol/L (136-145); TOTAL PROTEIN 6.4 g/dL (6.4-8.2); eGFR NON BLACK RACES 55 (>60)
[2018-05-02] MEDS: DUONEB 0.5 MG/3 MG NEB SCH ×2 (08:07→08:32)
[2018-05-02] MEDS: CREON PO SCH ×2 (09:26→13:29)
[2018-05-02] MEDS: LOVENOX INJ 30 MG SYR SC SCH (09:26)
[2018-05-02] MEDS: PROTONIX INJ 40 MG VIAL IVP SCH (09:26)
[2018-05-02] MEDS: LEVAQUIN PREMIX IV 500 MG 500 MG/100 ML BAG IV SCH (09:28)
[2018-05-02] MEDS: REGLAN INJ 10 MG VIAL IVP PRN (09:44)
[2018-05-02 14:17] VITALS: BP 115/57
[2018-05-02] MEDS: NS 1000 ML 1,000 ML IV SCH (14:19)
== END 2018-05-02 15:20 | disposition home health service (06) | DRG 439 ==
LOC: ER 11:53 → MED/SURG 15:24
PROVIDERS: ADMIT Internal Medicine; ATTEND Internal Medicine
DX: I10 Essential (primary) hypertension; B96.1 Klebsiella pneumoniae [K. pneumoniae] as the cause of diseases classified elsewhere; R11.2 Nausea with vomiting, unspecified; K85.80 Other acute pancreatitis without necrosis or infection; F32.89 Other specified depressive episodes; R10.84 Generalized abdominal pain; R62.7 Adult failure to thrive; K21.9 Gastro-esophageal reflux disease without esophagitis; R19.7 Diarrhea, unspecified; J44.1 Chronic obstructive pulmonary disease with (acute) exacerbation; I25.10 Atherosclerotic heart disease of native coronary artery without angina pectoris; F41.8 Other specified anxiety disorders
CPT/HCPCS: 36415; 36600; 71010; 71045; 74176; 80053; 81001; 82150; 82550; 82553; 82803; 83690; 83735; 84484; 84550; 85025; 87086; 87088; 87186; 93005; 93010; 94640; 94760; 96365; 96367; 96374; 96375; 99283; 99284; A4222; C9113; S0028; J1642; J1650; J1940; J1956; J2060; J2175; J2270; J2405; J2550; J2765; J2930; J3475; J3490; J7030; J7620

== ENCOUNTER 2018-05-20 11:39 | Observation (INO) ==
[2018-05-20] MEDS ORDERED: NS 1000 ML 1,000 ML ONE (11:51)
[2018-05-20] MEDS ORDERED: ZOFRAN INJ 4 MG VIAL IVP ONE (12:02)
[2018-05-20] MEDS ORDERED: ZOFRAN INJ 4 MG VIAL ONE (12:06)
[2018-05-20 12:11] LABS: BASOPHILS # (AUTO) 0.1 X10^3/uL (0.0-0.1); BASOPHILS % (AUTO) 1.1 % (0.2-1.0); EOSINOPHILS # (AUTO) 0.3 x10^3/uL (0.0-0.2); EOSINOPHILS % (AUTO) 4.5 % (0.9-2.9); HEMATOCRIT 32.5 % (36.0-47.0); HEMOGLOBIN 10.9 g/dL (12.0-16.0); LYMPHOCYTES # (AUTO) 1.2 X10^3/uL (1.3-2.9); LYMPHOCYTES % (AUTO) 18.9 % (21.0-51.0); MEAN CORPUSCULAR HEMOGLOBIN 28.7 pg (27.0-34.0); MEAN CORPUSCULAR HGB CONC 33.6 g/dL (33.0-35.0); MEAN CORPUSCULAR VOLUME 85.3 fL (80.0-100.0); MEAN PLATELET VOLUME 7.8 fL (7.4-11.0); MONOCYTES # (AUTO) 0.6 x10^3/uL (0.3-0.8); MONOCYTES % (AUTO) 9.3 % (0.0-13.0); NEUTROPHILS # (AUTO) 4.2 x10^3/uL (2.2-4.8); NEUTROPHILS % (AUTO) 66.2 % (42.0-75.0); PLATELET COUNT 344 X10^3/uL (150.0-450.0); RED CELL DISTRIBUTION WIDTH 14.9 % (11.6-16.5); WHITE BLOOD COUNT 6.4 X10^3/uL (3.6-10.0)
[2018-05-20 12:16] LABS: BLOOD UREA NITROGEN 3 mg/dL (7-18); CALCIUM 8.9 mg/dL (8.5-10.1); CARBON DIOXIDE 30.4 mmol/L (21-32); CHLORIDE 101 mmol/L (98-107); CREATININE 1.12 mg/dL (0.55-1.02); SODIUM 139 mmol/L (136-145); eGFR NON BLACK RACES 52 (>60)
[2018-05-20 12:20] LABS: ALANINE AMINOTRANSFERASE 19 Units/L (12-78); ALBUMIN 2.2 g/dL (3.4-5.0); ALKALINE PHOSPHATASE 401 Units/L (46-116); AMYLASE 19 Units/L (25-115); ASPARTATE AMINO TRANSFERASE 74 Units/L (15-37); COR CA(FOR HYPOALB) 10.3 mg/dL (8.5-10.1); LIPASE 58 Units/L (73-393)
[2018-05-20] MEDS ORDERED: NS 1000 ML 1,000 ML IV SCH (13:00)
--- NOTE | 2018-05-20 13:02 | DR.NAUSEAF ---
HPI Time Seen Time Seen by Provider: 05/20/18 12:56 Primary Care Physician Primary Care Physician: marino Complaints Chief Complaint Doctors Comments: Vomiting for 2 days with no relief. Fever at home and abd pain. Chief Complaint:: pt stated she has been vomiting for 3 straight days with no relief, high fever over 101.3 per patient. patient stated her pancreas is swollen again. Reviewed Nurses Notes Reviewed: Yes Source History Provided: Patient Mode of Arrival Mode of Arrival: EMS Timing Onset of Chief Complaint: 05/17/18 Context Onset: Spontaneous Recent: None Possible Ingestion: Unknown : No Quality Quality: Food Particles Associated Signs and Symptoms Abdominal Pain Quality: Sharp Abdominal Pain Location: Diffuse Symptoms: Abdominal Pain and Hematemesis PMH PMH Past Medical History: Yes Past Medical History: Anxiety, Arthritis, Asthma, CHF, COPD, Coronary Artery Disease, GERD and Hypertension Past Surgical History: Yes Surgical History: Abdominal Surgery, Appendectomy, Bowel Resection and Cholecystectomy Family History History of Family Medical Conditions: Yes Family Medical History: Diabetes Mellitus and Hypertension Social History Does patient currently use any type of tobacco product: Yes Have you used tobacco products in the last 12 months: Yes Type of Tobacco Use: Cigarettes How many years tobacco product used: 40 Do you use any recreational Drugs:: No Lives With: Family Lives Where: Home infectious screening In the last 2 months have you had wt loss of >10#?: NO Have you had fever, night sweats or hemotysis?: No Have you traveled outside the country in the last 6 months?: No Isolation: Standard ROS Review of Systems Constitutional: No Symptoms Reported Eyes: No Symptoms Reported ENTM: No Symptoms Reported Respiratoy: No Symptoms Reported Cardiovascular: No Symptoms Reported Gastrointestinal/Abdominal: See HPI, Abdominal Pain and Nausea Genitourinary: No Symptoms Reported Neurological: No Symptoms Reported Musculoskeletal: No Symptoms Reported Integumentary: No Symptoms Reported Hematologic/Lymphatic: No Symptoms Reported Endocrine: No Symptoms Reported Psychiatric: No Symptoms Reported All Other Systems: Reviewed and Negative PE Vital Signs Vitals: Temperature 98.0 F Pulse Rate [Left Brachial] 89 Pulse Rate 82 Respiratory Rate 20 Blood Pressure [Left Arm] 131/63 Blood Pressure [Right Arm] 115/57 Blood Pressure 126/57 O2 Sat by Pulse Oximetry 96 General Limitations: Physical Limitation (chronic Physical Limitations) General Appearance: Alert and In No Apparent Distress Head Head Exam: Normal Inspection Eyes Eye exam: Normal Appearance ENT ENT Exam: Normal Exam Neck Neck Exam: Normal Inspection Chest Chest Inspection: Normal Inspection Respiratory Respiratory Exam: Normal Lung Sounds Bilat Respiratory Exam: Bilateral: Clear to Auscultation Cardiovascular Cardiovascular Exam: Regular Rate and Normal Rhythm Abdominal Exam Abdominal Exam: Normal Bowel Sounds, Soft and Tenderness Abdominal Tenderness: Diffuse Rectal Rectal Exam: Deferred External Exam: Female: Deferred : Speculum Exam (Female): Deferred : Bimanual Exam (female): Deferred Extremities Extremities Exam: Normal Inspection Back Back Exam: Normal Inspection Neurologic Neurological Exam: Alert and Oriented X3 Psychiatric Psychiatric Exam: Normal Affect and Normal Mood Skin Skin Exam: Warm, Dry, Intact and Normal Color ROR Labs Reviewed Result Diagrams: 05/22/18 06:20 05/22/18 06:20 Laboratory: 05/22/18 12:42 Stool Stool Culture - Final 05/22/18 12:42 Stool - Final WBC 5.4 X10^3/uL (3.6-10.0) 05/22/18 06:20 RBC 3.45 X10^6/uL (3.5-5.4) L 05/22/18 06:20 Hgb 9.8 g/dL (12.0-16.0) L 05/22/18 06:20 Hct 29.3 % (36.0-47.0) L 05/22/18 06:20 MCV 84.8 fL (80.0-100.0) 05/22/18 06:20 MCH 28.5 pg (27.0-34.0) 05/22/18 06:20 MCHC 33.6 g/dL (33.0-35.0) 05/22/18 06:20 RDW 15.1 % (11.6-16.5) 05/22/18 06:20 Plt Count 271 X10^3/uL (150.0-450.0) 05/22/18 06:20 MPV 7.9 fL (7.4-11.0) 05/22/18 06:20 Neut % (Auto) 56.0 % (42.0-75.0) 05/22/18 06:20 Lymph % (Auto) 24.0 % (21.0-51.0) 05/22/18 06:20 [place] % (Auto) 11.6 % (0.0-13.0) 05/22/18 06:20 Eos % (Auto) 7.4 % (0.9-2.9) H 05/22/18 06:20 Baso % (Auto) 1.0 % (0.2-1.0) 05/22/18 06:20 Neut # (Auto) 3.0 x10^3/uL (2.2-4.8) 05/22/18 06:20 Lymph # (Auto) 1.3 X10^3/uL (1.3-2.9) 05/22/18 06:20 [place] # (Auto) 0.6 x10^3/uL (0.3-0.8) 05/22/18 06:20 Eos # (Auto) 0.4 x10^3/uL (0.0-0.2) H 05/22/18 06:20 Baso # (Auto) 0.1 X10^3/uL (0.0-0.1) 05/22/18 06:20 Absolute Nucleated RBC 0.1 /100WBC 05/22/18 06:20 Sodium 138 mmol/L (136-145) 05/22/18 06:20 Corrected Sodium TNP 05/22/18 06:20 Potassium 3.9 mmol/L (3.5-5.1) 05/22/18 06:20 Chloride 104 mmol/L (98-107) 05/22/18 06:20 Carbon Dioxide 24.7 mmol/L (21-32) 05/22/18 06:20 BUN 3 mg/dL (7-18) L 05/22/18 06:20 Creatinine 0.91 mg/dL (0.55-1.02) 05/22/18 06:20 Est GFR (MDRD) Af Amer > 60 (>60) 05/22/18 06:20 Est GFR (MDRD) Non-Af > 60 (>60) 05/22/18 06:20 Glucose 80 mg/dL (65-99) 05/22/18 06:20 Lactic Acid 2.3 mmol/L (0.4-2.0) H 05/20/18 11:54 Calcium 8.3 mg/dL (8.5-10.1) L 05/22/18 06:20 Corrected Calcium 9.8 mg/dL (8.5-10.1) 05/22/18 06:20 Magnesium 1.8 mg/dL (1.7-2.9) 05/22/18 06:20 Total Bilirubin 0.50 mg/dL (0.2-1.0) 05/22/18 06:20 AST 66 Units/L (15-37) H 05/22/18 06:20 ALT 14 Units/L (12-78) 05/22/18 06:20 Alkaline Phosphatase 383 Units/L (46-116) H 05/22/18 06:20 Ammonia 25 umol/L (11-32) 05/20/18 13:10 Creatine Kinase 17 Units/L (26-192) L 05/20/18 11:54 CK-MB (CK-2) < 1.0 ng/mL (0-4.0) 05/20/18 11:54 CK/CKMB % Calc 5.9 % (<4) 05/20/18 11:54 Troponin I < 0.02 ng/mL (0-1.5) 05/20/18 11:54 Total Protein 5.5 g/dL (6.4-8.2) L 05/22/18 06:20 Albumin 2.1 g/dL (3.4-5.0) L 05/22/18 06:20 Globulin 3.4 g/dL (2.5-4.5) 05/22/18 06:20 Albumin/Globulin Ratio 0.6 Ratio (1.1-2.1) L 05/22/18 06:20 Amylase 18 Units/L (25-115) L 05/21/18 05:10 Lipase 64 Units/L (73-393) L 05/21/18 05:10 Specimen Type Catherized urine 05/20/18 20:30 Urine Color Yellow (YELLOW) 05/20/18 20:30 Urine Appearance Slightly hazy (CLEAR) 05/20/18 20:30 Urine pH 6.0 (5.0 - 8.0) 05/20/18 20:30 Ur Specific [place] 1.020 (1.000-1.030) 05/20/18 20:30 Urine Protein 2+ (NEGATIVE) 05/20/18 20:30 Urine Glucose (UA) Negative (NEGATIVE) 05/20/18 20:30 Urine Ketones Negative (NEGATIVE) 05/20/18 20:30 Urine Occult Blood 2+ (NEGATIVE) 05/20/18 20:30 Urine Nitrite Negative (NEGATIVE) 05/20/18 20:30 Urine Bilirubin Negative (NEGATIVE) 05/20/18 20:30 Urine Urobilinogen Normal (NORMAL) 05/20/18 20:30 Ur Leukocyte Esterase Negative (NEGATIVE) 05/20/18 20:30 Urine RBC 3-5 /HPF (NONE SEEN) 05/20/18 20:30 Urine WBC 3-5 /HPF (NONE SEEN) 05/20/18 20:30 Ur Squamous Epith Cells Moderate /HPF (NEGATIVE) 05/20/18 20:30 Ur Renal Epithelial Cell Few /HPF (NEGATIVE) 05/20/18 20:30 Urine Bacteria Trace /HPF (NEGATIVE) 05/20/18 20:30 Ur Culture Indicated? No/not indicated 05/20/18 20:30 Stool Description 5 g mucoid green sto 05/22/18 12:42 Stl Occult Blood (IFOB) Positive (NEGATIVE) A 05/22/18 12:42 Stool for White Cells Positive (NEGATIVE) A 05/22/18 12:42 Stl C. diff Tox B Gene Negative (NEGATIVE) 05/22/18 12:42 Stl C. diff [id number] Negative (NEGATIVE) 05/22/18 12:42 Influenza Type A (PCR) Negative (NEGATIVE) 05/21/18 16:51 Influenza Type B (PCR) Negative (NEGATIVE) 05/21/18 16:51 Instructions Instructions: Fall Prevention in the Home, Axon-ib-Ondf Chronic Obstructive Pulmonary Disease, Tzyp-hu-Muin Food Choices to Help Relieve Diarrhea, Adult Nausea and Vomiting, Adult, [id number] Abdominal Pain, Adult, Ofoz-up-Geqp Hypertension, Hluy-li-Ioly Heart Failure, Nuzc-uf-Pasn Diarrhea, Adult, Iief-pe-Xujg Forms: Patient Portal
[2018-05-20 13:29] LABS: LACTIC ACID 2.3 mmol/L (0.4-2.0)
[2018-05-20 13:45] LABS: CKMB % 5.9 % (<4); CREATINE KINASE 17 Units/L (26-192); CREATINE KINASE MB < 1.0 ng/mL (0-4.0); TROPONIN I < 0.02 ng/mL (0-1.5)
[2018-05-20] MEDS ORDERED: MORPHINE SULFATE INJ 4 MG IVP ONE (13:55)
[2018-05-20] MEDS ORDERED: PHENERGAN INJ 25 MG IV ONE (13:55)
[2018-05-20] MEDS ORDERED: PHENERGAN INJ 25 MG ONE (13:57)
[2018-05-20] MEDS ORDERED: MORPHINE SULFATE INJ 4 MG ONE (13:57)
--- NOTE | 2018-05-20 15:03 | CT ---
CT OF THE ABDOMEN AND PELVIS WITHOUT CONTRAST HISTORY: Nausea vomiting Comparison: 04/24/2018 Technique: Multiple axial images of the abdomen and pelvis were obtained from the lung bases to the pubic symphy sis without the administration of IV contrast. Oral contrast was administered. Dose reduction techni ques including Automated Exposure Control (AEC) and adjustment of mA and kV were utlized. Findings: The heart is normal in size. There is no pericardial effusion. Emphysema of the lung bases.. The sensitivity for focal lesion detection within the solid abdominal viscera is diminished without t he use of IV contrast. Liver and spleen are normal in size, and contour. Severe hepatic steatosis. No ductal dilitation. Gal lbladder absent. Redemonstration of focal prominence of the pancreatic body without peripancreatic in flammation. Adrenal glands are normal. Kidneys are normal in contour without hydronephrosis or nephro lithiasis. Simple bilateral renal cysts No bowel obstruction or inflammation. No abnormal appearing mesenteric or retroperitoneal lymph node s. No free fluid or fluid collections. The bladder is normal in appearance. Prostate not enlarged. No free fluid or abnormal pelvic lymph no dedrick. No aggressive osseous lesions. IMPRESSION: 1. No definite source of patient's nausea vomiting is identified on this examination. 2. Severe hepatic steatosis. 3. Focal prominence of the pancreas. This appeared to present acutely on 01/25/2018 in the setting of acute pancreatitis and is likely a highly proteinaceous pseudocyst. This could be further evaluated with MRI on a nonemergent outpatient basis. Reported By:
[2018-05-20 18:15] VITALS: BMI 34.4
[2018-05-20] MEDS: DUONEB 0.5 MG/3 MG NEB PRN (18:28)
[2018-05-20] MEDS: NS 1000 ML 1,000 ML IV SCH (18:41)
[2018-05-20] MEDS: MORPHINE SULFATE INJ 2 MG INJ IVP PRN (19:56)
[2018-05-20] MEDS: PHENERGAN INJ 25 MG IVP PRN (19:56)
[2018-05-20 20:58] LABS: BILIRUBIN,URINE NEGATIVE (NEGATIVE); BLOOD/HEMOGLOBIN,URINE 2+ (NEGATIVE); GLUCOSE, URINE NEGATIVE (NEGATIVE); KETONES,URINE NEGATIVE (NEGATIVE); LEUKOCYTE ESTERASE ,URINE NEGATIVE (NEGATIVE); NITRITES,URINE NEGATIVE (NEGATIVE); PROTEIN,URINE 2+ (NEGATIVE); UROBILINOGEN,URINE NORMAL (NORMAL)
[2018-05-20] MEDS ORDERED: K-DUR TAB 20 MEQ PO PRN (21:03)
[2018-05-20] MEDS ORDERED: POTASSIUM CHL 40 MEQ/NS 0.45% 500 ML IV PRN (21:03)
[2018-05-20] MEDS ORDERED: POTASSIUM CHL 60 MEQ/NS 0.45% 500 ML IV PRN (21:03)
[2018-05-20] MEDS ORDERED: K-RIDER 10 MEQ/NS 100 ML 10 MEQ/100 ML BAG IV PRN (21:03)
[2018-05-20] MEDS ORDERED: POTASSIUM CHLORIDE LIQ 20 MEQ UDC PO PRN (21:03)
[2018-05-20] MEDS ORDERED: MICRO K EXTEN CAP 10 MEQ PO PRN (21:03)
[2018-05-20] MEDS ORDERED: KLOR-CON PO PRN (21:03)
[2018-05-20 21:05] LABS: APPEARANCE,URINE SLIGHTLY HAZY (CLEAR); BACTERIA,URINE TRACE /HPF (NEGATIVE); COLOR,URINE YELLOW (YELLOW); SQUAMOUS EPITHELIAL CELL,UR MODERATE /HPF (NEGATIVE)
[2018-05-20 21:06] LABS: RENAL EPITHELIAL CELLS,URINE FEW /HPF (NEGATIVE)
[2018-05-20] MEDS: PEPCID 20 MG IV PREMIX* 20 MG/50 ML BAG IV PRN (21:29)
[2018-05-20] MEDS: AMBIEN PO PRN (22:28)
[2018-05-21] MEDS: DUONEB 0.5 MG/3 MG NEB PRN ×6 (00:38→20:24)
[2018-05-21] MEDS: ROBITUSSIN DM PO PRN ×3 (00:49→21:11)
[2018-05-21] MEDS: XANAX PO PRN ×2 (00:49→21:11)
[2018-05-21] MEDS: NS 1000 ML 1,000 ML IV SCH ×3 (01:50→17:05)
[2018-05-21] MEDS: PHENERGAN INJ 25 MG IVP PRN ×4 (03:10→21:12)
[2018-05-21] MEDS: MORPHINE SULFATE INJ 2 MG INJ IVP PRN ×4 (03:10→21:11)
[2018-05-21] MEDS ORDERED: BUTT CREAM (COMPOUND) ONE (03:54)
[2018-05-21] MEDS: BUTT CREAM (COMPOUND) TOP PRN ×2 (04:00→10:06)
[2018-05-21 05:30] LABS: BASOPHILS # (AUTO) 0.1 X10^3/uL (0.0-0.1); EOSINOPHILS # (AUTO) 0.4 x10^3/uL (0.0-0.2); HEMATOCRIT 28.9 % (36.0-47.0); HEMOGLOBIN 9.9 g/dL (12.0-16.0); LYMPHOCYTES # (AUTO) 1.7 X10^3/uL (1.3-2.9); MEAN CORPUSCULAR HEMOGLOBIN 28.8 pg (27.0-34.0); MEAN CORPUSCULAR HGB CONC 34.2 g/dL (33.0-35.0); MEAN CORPUSCULAR VOLUME 84.1 fL (80.0-100.0); MEAN PLATELET VOLUME 7.9 fL (7.4-11.0); MONOCYTES # (AUTO) 0.7 x10^3/uL (0.3-0.8); MONOCYTES % (AUTO) 10.6 % (0.0-13.0); NEUTROPHILS # (AUTO) 3.4 x10^3/uL (2.2-4.8); NEUTROPHILS % (AUTO) 54.4 % (42.0-75.0); PLATELET COUNT 296 X10^3/uL (150.0-450.0); RED BLOOD COUNT 3.43 X10^6/uL (3.5-5.4); WHITE BLOOD COUNT 6.2 X10^3/uL (3.6-10.0)
[2018-05-21 05:55] LABS: ALANINE AMINOTRANSFERASE 18 Units/L (12-78); ALKALINE PHOSPHATASE 382 Units/L (46-116); AMYLASE 18 Units/L (25-115); ASPARTATE AMINO TRANSFERASE 67 Units/L (15-37); BLOOD UREA NITROGEN 3 mg/dL (7-18); CALCIUM 8.5 mg/dL (8.5-10.1); CARBON DIOXIDE 29.1 mmol/L (21-32); CHLORIDE 105 mmol/L (98-107); COR CA(FOR HYPOALB) 10.1 mg/dL (8.5-10.1); CREATININE 0.89 mg/dL (0.55-1.02); LIPASE 64 Units/L (73-393); MAGNESIUM 1.2 mg/dL (1.7-2.9); SODIUM 140 mmol/L (136-145); TOTAL PROTEIN 5.4 g/dL (6.4-8.2); eGFR NON BLACK RACES > 60 (>60)
[2018-05-21] MEDS: MAGNESIUM SULFATE 1 GRAM/100 mL PREMIX 1 GM/100 ML BAG IV PRN ×3 (06:22→09:59)
[2018-05-21] MEDS ORDERED: ZOFRAN INJ 4 MG VIAL ONE (06:25)
[2018-05-21] MEDS ORDERED: PROTONIX TAB 40 MG PO SCH (09:00)
[2018-05-21] MEDS: PEPCID 20 MG IV PREMIX* 20 MG/50 ML BAG IV PRN (09:20)
[2018-05-21] MEDS ORDERED: REGLAN INJ 10 MG VIAL IVP SCH (10:00)
[2018-05-21] MEDS ORDERED: REGLAN INJ 10 MG VIAL ONE (10:18)
[2018-05-21] MEDS: REGLAN INJ 10 MG VIAL IVP SCH ×3 (10:40→21:12)
--- NOTE | 2018-05-21 14:28 | DR.H&P ---
H&P - History & Physical for Day of: H&P Date: 05/20/18 - Chief Complaint Chief Complaint: ABDOMINAL PAIN N/V/D - History of Present Illness History of Present Illness: 63 WF ER ADMISSION AFTER PRESENTING VIA EMS WITH CO "VOMITING ALL NIGHT LONG" N/V/D SINCE LAST WEEK. PT WAS GIVEN LOMOTIL AND STOOL STUDIES ORDER, DID NOT HAVE STOOL COLLECTED AND HAS TAKEN PHENERGAN AND LOMOTIL WITHOUT IMPROVEMENT. K+3.1 ON ADMISSION, ELEVATED ALK PHOS, AMYLASE AND LIPASE BELOW NORMAL. PT ADMITTED FOR TREATMENT OF ACUTE ILLNESS, ELECTROLYTE REPLACEMENT, NAUSEA CONTROL. - Past Medical History Past Medical History: Coronary Artery Disease, Hypertension, Anxiety, COPD, Asthma, GERD, Arthritis, CHF - Past Surgical History Surgical History: Appendectomy, Cholecystectomy, Tonsillectomy - Family History Family Medical History: Diabetes Mellitus, Hypertension - Social History Does patient currently use any type of tobacco product: No Have you used tobacco products in the last 12 months: No Type of Tobacco Use: Cigarettes How many years tobacco product used: 54 Alcohol Use: None Drug Use: None - Medications Home Medications: ketorolac [From Toradol] Allergy (Verified 05/20/18 11:40) nalbuphine [From Nubain] Allergy (Verified 05/20/18 11:40) Penicillins Allergy (Verified 05/20/18 11:40) Sulfa (Sulfonamide Antibiotics) [SULFA] Allergy (Verified 05/20/18 11:40) BETA BLOCKERS Allergy (Uncoded 05/20/18 11:40) CONTINUE taking the following medications ciprofloxacin HCl 1 tab PO BID 05/20/18 [History] colesevelam [WelChol] 1 tab PO BID 05/20/18 [History] diltiazem HCl 1 cap PO DAILY 05/20/18 [History] diphenoxylate-atropine 1 tab PO PRN PRN 05/20/18 [History] fluticasone 2 spray INTRANASAL BID 05/20/18 [History] linaclotide [Linzess] 1 tab PO DAILY 05/20/18 [History] bvlrop-ltiibruh-cnumntc [Creon] 2 cap PO TID 05/20/18 [History] metoclopramide HCl 1 tab PO BID 05/20/18 [History] zolpidem [Ambien] 10 mg PO HS PRN 05/20/18 [History] - Review of Systems Constitutional: Fever, Weakness, Malaise ENT: No Symptoms Reported Respiratory: Cough, Wheezing. denies: Shortness of Breath Cardiovascular: No Symptoms Reported. denies: Edema Gastrointestinal: Nausea, Vomiting, Abdominal Pain, Diarrhea Genitourinary: No Symptoms Reported Musculoskeletal: Back Pain Skin: No Symptoms Reported Neurological: Weakness - Physical Exam Vital Signs: Temperature 98.1 F Pulse Rate [Left Brachial] 101 Pulse Rate 100 Respiratory Rate 20 Blood Pressure [Left Arm] 107/49 Blood Pressure [Right Arm] 115/57 Blood Pressure 126/57 O2 Sat by Pulse Oximetry 94 Oriented: Normal Eyes: Normal Ear: Normal Nose: Normal Throat: Dry Respiratory: RLL Diminished, LLL Diminished Cardiovascular: Normal. negative: Edema : Normal Auscultation: Bowel Sounds: Increased Tenderness: Diffuse Skin: Decreased Turgur, Bruising, Other (EDEMA TO BILATERAL SIDES OF ABDOMEN, 3RD SPACE) Musculoskeletal: Back:Thoracic, Back:Lumbar, Instability Psychiatric: Anxiety Affect: Anxious Speech Pattern: Clear, Appropriate - Assessment/Plan (1) Hypokalemia Status: Acute Plan: ADMIT, IV HYDRATION. POTASSIUM AND MAGNESIUM REPLACEMENT, VERIFY HOME MEDS. STOOL STUDIES. NPO, REGLAN, IV PHENERGAN, PEPCID BID. BP CONROL, CARDIAC MONITORING (2) Nausea & vomiting Status: Acute (3) Pancreatic abnormality Status: Acute (4) Hypertension Status: Chronic (5) CHF (congestive heart failure) Status: Chronic (6) GERD with esophagitis Status: Acute - Allergies Allergies/Adverse Reactions: Allergies Allergy/AdvReac Type Severity Reaction Status Date / Time ketorolac [From Toradol] Allergy Verified 05/20/18 11:40 nalbuphine [From Nubain] Allergy Verified 05/20/18 11:40 Penicillins Allergy Verified 05/20/18 11:40 Sulfa (Sulfonamide Allergy Verified 05/20/18 11:40 Antibiotics) [SULFA] BETA BLOCKERS Allergy Uncoded 05/20/18 11:40
--- NOTE | 2018-05-21 14:42 | PCM.PROG ---
Progress Note - Progress Note for Day of Date of Exam: 05/21/18 - Subjective Subjective: 63 WF ER ADMISSION WITH N/V/D AND REPORTS OF FEVER FOR ~ 1 WEEK. PT HAS HX OF GERD WITH ESOPHAGITIS, REOCCURRING N/V. PT REPORT DIARRHEA, ONE BM SINCE ADMISSION, STOOL STUDIES ORDERED. PT CURRENTLY RECEIVING IV HYDRATION, POTASSIUM REPLACEMENT, MAGNESIUM. IV CIPRO, RESP THERAPY FOR CHRONIC COPD, SUPPLEMENTAL O2. PEPCID BID, IV REGLAN AND ANTIEMETIC CONTROL - Past Medical Family Social History Past Med/Fam/Surg Hx: No changes since H&P Allergies: Allergies ketorolac [From Toradol] Allergy (Verified 05/20/18 11:40) nalbuphine [From Nubain] Allergy (Verified 05/20/18 11:40) Penicillins Allergy (Verified 05/20/18 11:40) Sulfa (Sulfonamide Antibiotics) [SULFA] Allergy (Verified 05/20/18 11:40) BETA BLOCKERS Allergy (Uncoded 05/20/18 11:40) - Review of Systems ROS: No change since H&P - Vital Signs and I&O's Vital Signs: Temperature 98.1 F Pulse Rate [Left Brachial] 101 Pulse Rate 100 Respiratory Rate 20 Blood Pressure [Left Arm] 107/49 Blood Pressure [Right Arm] 115/57 Blood Pressure 126/57 O2 Sat by Pulse Oximetry 94 Intake and Output: Intake & Output 05/19/18 05/20/18 05/21/18 05/22/18 11:59 11:59 11:59 11:59 Intake Total 1430 / 1430 662 / 662 Output Total 200 / 200 Balance 1230 / 1230 662 / 662 - Physical Exam Oriented: Normal Eyes: Normal Ear: Normal Nose: Normal Throat: Dry Cardiovascular: Normal. negative: Edema : Normal Auscultation: Bowel Sounds: Increased Tenderness: Diffuse Skin: Decreased Turgur, Bruising, Other (EDEMA TO BILATERAL SIDES OF ABDOMEN, 3RD SPACE) Musculoskeletal: Back:Thoracic, Back:Lumbar, Instability Psychiatric: Anxiety Affect: Anxious Speech Pattern: Clear, Appropriate - Laboratory and Diagnostics Result Diagrams: 05/21/18 05:10 05/21/18 05:10 Labs: Laboratory WBC 6.2 X10^3/uL (3.6-10.0) 05/21/18 05:10 RBC 3.43 X10^6/uL (3.5-5.4) L 05/21/18 05:10 Hgb 9.9 g/dL (12.0-16.0) L 05/21/18 05:10 Hct 28.9 % (36.0-47.0) L 05/21/18 05:10 MCV 84.1 fL (80.0-100.0) 05/21/18 05:10 MCH 28.8 pg (27.0-34.0) 05/21/18 05:10 MCHC 34.2 g/dL (33.0-35.0) 05/21/18 05:10 RDW 15.0 % (11.6-16.5) 05/21/18 05:10 Plt Count 296 X10^3/uL (150.0-450.0) 05/21/18 05:10 MPV 7.9 fL (7.4-11.0) 05/21/18 05:10 Neut % (Auto) 54.4 % (42.0-75.0) 05/21/18 05:10 Lymph % (Auto) 28.0 % (21.0-51.0) 05/21/18 05:10 [place] % (Auto) 10.6 % (0.0-13.0) 05/21/18 05:10 Eos % (Auto) 6.0 % (0.9-2.9) H 05/21/18 05:10 Baso % (Auto) 1.0 % (0.2-1.0) 05/21/18 05:10 Neut # (Auto) 3.4 x10^3/uL (2.2-4.8) 05/21/18 05:10 Lymph # (Auto) 1.7 X10^3/uL (1.3-2.9) 05/21/18 05:10 [place] # (Auto) 0.7 x10^3/uL (0.3-0.8) 05/21/18 05:10 Eos # (Auto) 0.4 x10^3/uL (0.0-0.2) H 05/21/18 05:10 Baso # (Auto) 0.1 X10^3/uL (0.0-0.1) 05/21/18 05:10 Absolute Nucleated RBC 0.1 /100WBC 05/21/18 05:10 Sodium 140 mmol/L (136-145) 05/21/18 05:10 Corrected Sodium TNP 05/21/18 05:10 Potassium 3.8 mmol/L (3.5-5.1) 05/21/18 05:10 Chloride 105 mmol/L (98-107) 05/21/18 05:10 Carbon Dioxide 29.1 mmol/L (21-32) 05/21/18 05:10 BUN 3 mg/dL (7-18) L 05/21/18 05:10 Creatinine 0.89 mg/dL (0.55-1.02) 05/21/18 05:10 Est GFR (MDRD) Af Amer > 60 (>60) 05/21/18 05:10 Est GFR (MDRD) Non-Af > 60 (>60) 05/21/18 05:10 Glucose 75 mg/dL (65-99) 05/21/18 05:10 Lactic Acid 2.3 mmol/L (0.4-2.0) H 05/20/18 11:54 Calcium 8.5 mg/dL (8.5-10.1) 05/21/18 05:10 Corrected Calcium 10.1 mg/dL (8.5-10.1) 05/21/18 05:10 Magnesium 1.2 mg/dL (1.7-2.9) L 05/21/18 05:10 Total Bilirubin 0.40 mg/dL (0.2-1.0) 05/21/18 05:10 AST 67 Units/L (15-37) H 05/21/18 05:10 ALT 18 Units/L (12-78) 05/21/18 05:10 Alkaline Phosphatase 382 Units/L (46-116) H 05/21/18 05:10 Ammonia 25 umol/L (11-32) 05/20/18 13:10 Creatine Kinase 17 Units/L (26-192) L 05/20/18 11:54 CK-MB (CK-2) < 1.0 ng/mL (0-4.0) 05/20/18 11:54 CK/CKMB % Calc 5.9 % (<4) 05/20/18 11:54 Troponin I < 0.02 ng/mL (0-1.5) 05/20/18 11:54 Total Protein 5.4 g/dL (6.4-8.2) L 05/21/18 05:10 Albumin 2.0 g/dL (3.4-5.0) L 05/21/18 05:10 Globulin 3.4 g/dL (2.5-4.5) 05/21/18 05:10 Albumin/Globulin Ratio 0.6 Ratio (1.1-2.1) L 05/21/18 05:10 Amylase 18 Units/L (25-115) L 05/21/18 05:10 Lipase 64 Units/L (73-393) L 05/21/18 05:10 Specimen Type Catherized urine 05/20/18 20:30 Urine Color Yellow (YELLOW) 05/20/18 20:30 Urine Appearance Slightly hazy (CLEAR) 05/20/18 20:30 Urine pH 6.0 (5.0 - 8.0) 05/20/18 20:30 Ur Specific [place] 1.020 (1.000-1.030) 05/20/18 20:30 Urine Protein 2+ (NEGATIVE) 05/20/18 20:30 Urine Glucose (UA) Negative (NEGATIVE) 05/20/18 20:30 Urine Ketones Negative (NEGATIVE) 05/20/18 20:30 Urine Occult Blood 2+ (NEGATIVE) 05/20/18 20:30 Urine Nitrite Negative (NEGATIVE) 05/20/18 20:30 Urine Bilirubin Negative (NEGATIVE) 05/20/18 20:30 Urine Urobilinogen Normal (NORMAL) 05/20/18 20:30 Ur Leukocyte Esterase Negative (NEGATIVE) 05/20/18 20:30 Urine RBC 3-5 /HPF (NONE SEEN) 05/20/18 20:30 Urine WBC 3-5 /HPF (NONE SEEN) 05/20/18 20:30 Ur Squamous Epith Cells Moderate /HPF (NEGATIVE) 05/20/18 20:30 Ur Renal Epithelial Cell Few /HPF (NEGATIVE) 05/20/18 20:30 Urine Bacteria Trace /HPF (NEGATIVE) 05/20/18 20:30 Ur Culture Indicated? No/not indicated 05/20/18 20:30 - Plan (1) Hypokalemia Status: Acute Plan: IV HYDRATION. POTASSIUM AND MAGNESIUM REPLACEMENT, VERIFY HOME MEDS. STOOL STUDIES. NPO, REGLAN, IV PHENERGAN, PEPCID BID. BP CONROL, CARDIAC MONITORING (2) Nausea & vomiting Status: Acute (3) Pancreatic abnormality Status: Acute (4) Hypertension Status: Chronic (5) CHF (congestive heart failure) Status: Chronic (6) GERD with esophagitis Status: Acute (7) Gastroenteritis and colitis, viral Status: Acute Plan: IV CIPRO, NPO, NAUSEA CONTROL
[2018-05-21] MEDS: CIPRO IV 400 MG PREMIX* 400 MG/200 ML IV.SOLN. IV SCH ×2 (15:22→21:12)
[2018-05-21] MEDS: AMBIEN PO PRN (21:11)
[2018-05-22] MEDS: REGLAN INJ 10 MG VIAL IVP SCH ×3 (03:24→15:03)
[2018-05-22] MEDS: NS 1000 ML 1,000 ML IV SCH ×2 (03:24→09:22)
[2018-05-22] MEDS: MORPHINE SULFATE INJ 2 MG INJ IVP PRN ×3 (03:24→15:04)
[2018-05-22] MEDS: PHENERGAN INJ 25 MG IVP PRN ×3 (03:25→15:03)
[2018-05-22] MEDS ORDERED: TYLENOL 325 MG TAB PO PRN (04:59)
[2018-05-22] MEDS ORDERED: TYLENOL 325 MG TAB PO ONE (05:05)
[2018-05-22] MEDS: PEPCID 20 MG IV PREMIX* 20 MG/50 ML BAG IV PRN (05:48)
[2018-05-22 07:14] LABS: ALANINE AMINOTRANSFERASE 14 Units/L (12-78); ALBUMIN 2.1 g/dL (3.4-5.0); ALKALINE PHOSPHATASE 383 Units/L (46-116); ASPARTATE AMINO TRANSFERASE 66 Units/L (15-37); BLOOD UREA NITROGEN 3 mg/dL (7-18); CALCIUM 8.3 mg/dL (8.5-10.1); CARBON DIOXIDE 24.7 mmol/L (21-32); CHLORIDE 104 mmol/L (98-107); COR CA(FOR HYPOALB) 9.8 mg/dL (8.5-10.1); CREATININE 0.91 mg/dL (0.55-1.02); SODIUM 138 mmol/L (136-145); TOTAL PROTEIN 5.5 g/dL (6.4-8.2); eGFR NON BLACK RACES > 60 (>60)
[2018-05-22 07:23] LABS: BASOPHILS # (AUTO) 0.1 X10^3/uL (0.0-0.1); EOSINOPHILS # (AUTO) 0.4 x10^3/uL (0.0-0.2); EOSINOPHILS % (AUTO) 7.4 % (0.9-2.9); HEMATOCRIT 29.3 % (36.0-47.0); HEMOGLOBIN 9.8 g/dL (12.0-16.0); LYMPHOCYTES # (AUTO) 1.3 X10^3/uL (1.3-2.9); MEAN CORPUSCULAR HEMOGLOBIN 28.5 pg (27.0-34.0); MEAN CORPUSCULAR HGB CONC 33.6 g/dL (33.0-35.0); MEAN CORPUSCULAR VOLUME 84.8 fL (80.0-100.0); MEAN PLATELET VOLUME 7.9 fL (7.4-11.0); MONOCYTES # (AUTO) 0.6 x10^3/uL (0.3-0.8); MONOCYTES % (AUTO) 11.6 % (0.0-13.0); PLATELET COUNT 271 X10^3/uL (150.0-450.0); RED BLOOD COUNT 3.45 X10^6/uL (3.5-5.4); RED CELL DISTRIBUTION WIDTH 15.1 % (11.6-16.5); WHITE BLOOD COUNT 5.4 X10^3/uL (3.6-10.0)
[2018-05-22] MEDS: CIPRO IV 400 MG PREMIX* 400 MG/200 ML IV.SOLN. IV SCH (08:39)
[2018-05-22] MEDS: DUONEB 0.5 MG/3 MG NEB PRN ×2 (09:25→12:12)
[2018-05-22 13:12] VITALS: BP 131/63
[2018-05-22 13:33] LABS: STOOL FOR WBC POSITIVE (NEGATIVE)
[2018-05-22] MEDS ORDERED: PERCOCET TAB 5/325 MG PO SCH (14:00)
[2018-05-22] MEDS ORDERED: CARAFATE ORAL SUSP PO SCH (16:30)
== END 2018-05-22 16:45 | disposition home health service (06) ==
LOC: ER 11:39 → ICU 11:39 → MED/SURG 05-21 13:41
PROVIDERS: ADMIT Internal Medicine; ATTEND Internal Medicine
DX: A08.39 Other viral enteritis; R19.7 Diarrhea, unspecified; R11.2 Nausea with vomiting, unspecified; F41.8 Other specified anxiety disorders; I50.9 Heart failure, unspecified; K21.0 Gastro-esophageal reflux disease with esophagitis; I25.10 Atherosclerotic heart disease of native coronary artery without angina pectoris; R94.31 Abnormal electrocardiogram [ECG] [EKG]; J44.9 Chronic obstructive pulmonary disease, unspecified; E87.6 Hypokalemia; R10.84 Generalized abdominal pain; K92.1 Melena; K76.0 Fatty (change of) liver, not elsewhere classified
CPT/HCPCS: 36415; 74176; 80053; 81001; 82140; 82150; 82270; 82550; 82553; 83605; 83630; 83690; 83735; 84484; 85025; 87045; 87427; 87449; 87493; 87502; 87899; 93005; 93010; 94640; 94669; 96365; 96367; 96374; 96375; 99284; A4216; A4222; S0028; G0378; J0744; J1642; J2270; J2405; J2550; J2765; J3475; J3480; J3490; J7030; J7620

== ENCOUNTER 2018-06-12 03:04 | Inpatient (IN) ==
[2018-06-12] MEDS ORDERED: OFIRMEV IV 1000 MG VIAL 1,000 MG/100 ML VIAL IV ONE ×2 (03:13→03:14)
[2018-06-12] MEDS: NS 1/2 1000 ML IV 1,000 ML IV SCH ×3 (03:15→21:29)
[2018-06-12] MEDS ORDERED: NS 1/2 1000 ML IV 1,000 ML IV ONE (03:18)
--- NOTE | 2018-06-12 03:56 | DR.GENAD ---
HPI Time Seen Time Seen by Provider: 06/12/18 03:14 PCP Primary Care Physician: YADIRA HPI Comment HPI Comment: HAD FLU SHOT 2 DAYS AGO. SICK SINCE. TONIGHT, SEVERE SOB AND FEVER. STILL HAVING DIARRHEA THAT IS ON GOING FOR SEVERAL WEEKS WITH ABDOMINAL PAIN. ORAL INTAKE HAS DECREASE. Complaint/Symptoms Chief Complaint Doctors Comments: GENERALIZE PAIN, HEADACHE AND SOB THAT GOT WORSE TONIGHT. Chief Complaint:: [facility] RESPONDED TO CALL IN [place] REFERENCE TO DIFFICULTY BREATHING. UPON EMS ARRIVAL PATIENT SATS 92%, BP 120/80, AND FEELS WARM. EMS STATES, "LUNGS SOUND PRETTY GOOD." UPON ARRIVAL TO ED PATIENT BIB, STATES, "I GOT THE FLU SHOT 2 DAYS AGO AND IT JUST DIDN'T DO ME RIGHT." PATIENT C/O DIARRHEA, HEADACHE, COUGH, CHILLS, PAIN ALL OVER. O/S [id number] Nurses notes reviewed Nurses Notes Review: Yes Source History Provided: Patient and EMS Mode of Arrival Mode of Arrival: EMS Timing Onset of Chief Complaint: 06/12/18 Came on: Suddenly Duration Duration: Constant Duration: Days (DISRRHEA FOR SEVERAL WEEKS.) Severity Severity: Moderate Modifying Factors Worsens:: LAYING DOWN Improves:: SITTING UP. Associated Signs and Symptoms Associated Signs and Symptoms: HEADACHE, SOB, FEVER, MYALGIA. PMH PMH Past Medical History: Yes Past Medical History: Anxiety, Arthritis, Asthma, CHF, COPD, Coronary Artery Disease, GERD and Hypertension Past Surgical History: Yes Surgical History: Appendectomy, Cholecystectomy and Tonsillectomy Family History History of Family Medical Conditions: Yes Family Medical History: Diabetes Mellitus and Hypertension Social History Type of Tobacco Use: None Alcohol Use: None Do you use any recreational Drugs:: No Lives With: Significant Other Lives Where: Home infectious screening Have you traveled outside the country in the last 6 months?: No Isolation: Standard ROS Review of Systems Constitutional: Chills, Fever, Weakness, Fatigue and Loss of Appetite Eyes: negative Eye Pain and Discharge ENTM: Nose Discharge and Nose Congestion Respiratoy: Productive Cough, Orthopnea, Short of Breath and Wheezing Cardiovascular: Chest Pain Gastrointestinal/Abdominal: Abdominal Pain and Nausea Genitourinary: No Symptoms Reported Neurological: Headache and Weakness Musculoskeletal: Back Pain, Joint Pain, Joint Swelling and Muscle Pain Integumentary: Dryness Hematologic/Lymphatic: Easy Bleeding and Easy Bruising Endocrine: No Symptoms Reported Psychiatric: No Symptoms Reported All Other Systems: Reviewed and Negative PE Vital Signs Vitals: Temperature 100.8 F Pulse Rate [Left] 112 Pulse Rate 125 Respiratory Rate 22 Blood Pressure [Left Arm] 160/70 Blood Pressure [Right Arm] 115/57 Blood Pressure 208/94 O2 Sat by Pulse Oximetry 100 General Limitations: No Limitations General Appearance: Alert and In Distress Head Head Exam: Normal Inspection and Atraumatic Eyes Eye exam: PERRL; negative Scleral Icterus and Conjunctival Injection ENT ENT Exam: Normal Oropharynx and Normal External Ear Exam External Ear Exam: Normal External Inspection TM/Canal Exam: Bilateral: Normal Nose Exam: Normal Nose Exam Throat Exam: Tonsillar Erythema; negative Tonsillomegaly and Tonsillar Exudate Neck Neck Exam: Trachea Midline Chest Chest Inspection: Symmetric Chest Wall Rise Respiratory Respiratory Exam: Respiratory Distress Respiratory Exam: Bilateral: Wheezing and Bilateral: Rhonchi, Upper: Wheezing and Lower: Wheezing and Lower: Rhonchi Cardiovascular Cardiovascular Exam: Regular Rate and Normal Rhythm Abdominal Exam Abdominal Exam: Normal Bowel Sounds, Soft and Tenderness Abdominal Tenderness: Diffuse and Moderate Extremities Extremities Exam: Edema Back Back Exam: Tenderness and Paraspinal Tenderness Neurologic Neurological Exam: Alert and Oriented X3; negative Motor Sensory Deficit Psychiatric Psychiatric Exam: Anxious MDM Additional Information Additional Information Obtained From: Family Differential Diagnosis Differential Diagnosis: PNEUMONIA, URI, [place], GASTROENTERITIS COURSE Treatment Treatment: SEE ORDERS. Education/Counseling Education/Counseling: Patient and Family Educated On: Diagnosis ROR Labs Reviewed Laboratory Results Reviewed?: Yes Result Diagrams: 06/12/18 04:15 06/12/18 04:15 Laboratory: WBC 14.7 X10^3/uL (3.6-10.0) H 06/12/18 04:15 RBC 2.79 X10^6/uL (3.5-5.4) L 06/12/18 04:15 Hgb 8.3 g/dL (12.0-16.0) L 06/12/18 04:15 Hct 25.4 % (36.0-47.0) L 06/12/18 04:15 MCV 91.0 fL (80.0-100.0) 06/12/18 04:15 MCH 29.7 pg (27.0-34.0) 06/12/18 04:15 MCHC 32.7 g/dL (33.0-35.0) L 06/12/18 04:15 RDW 22.5 % (11.6-16.5) H 06/12/18 04:15 Plt Count 285 X10^3/uL (150.0-450.0) 06/12/18 04:15 Plt Count Comment Adequate (ADEQUATE) 06/12/18 04:15 MPV 8.3 fL (7.4-11.0) 06/12/18 04:15 Neut % (Auto) 76.0 % (42.0-75.0) H 06/12/18 04:15 Lymph % (Auto) 13.4 % (21.0-51.0) L 06/12/18 04:15 [place] % (Auto) 9.7 % (0.0-13.0) 06/12/18 04:15 Eos % (Auto) 0.5 % (0.9-2.9) L 06/12/18 04:15 Baso % (Auto) 0.4 % (0.2-1.0) 06/12/18 04:15 Neut # (Auto) 11.2 x10^3/uL (2.2-4.8) H 06/12/18 04:15 Lymph # (Auto) 2.0 X10^3/uL (1.3-2.9) 06/12/18 04:15 [place] # (Auto) 1.4 x10^3/uL (0.3-0.8) H 06/12/18 04:15 Eos # (Auto) 0.1 x10^3/uL (0.0-0.2) 06/12/18 04:15 Baso # (Auto) 0.1 X10^3/uL (0.0-0.1) 06/12/18 04:15 Absolute Nucleated RBC 0.0 /100WBC 06/12/18 04:15 Plt Morphology Comment Normal (NORMAL) 06/12/18 04:15 RBC Morphology Abnormal (NORMAL) A 06/12/18 04:15 Anisocytosis 2+ A 06/12/18 04:15 Sodium 143 mmol/L (136-145) 06/12/18 04:15 Corrected Sodium TNP 06/12/18 04:15 Potassium 3.7 mmol/L (3.5-5.1) 06/12/18 04:15 Chloride 107 mmol/L (98-107) 06/12/18 04:15 Carbon Dioxide 27.8 mmol/L (21-32) 06/12/18 04:15 BUN 9 mg/dL (7-18) 06/12/18 04:15 Creatinine 0.88 mg/dL (0.55-1.02) 06/12/18 04:15 Est GFR (MDRD) Af Amer > 60 (>60) 06/12/18 04:15 Est GFR (MDRD) Non-Af > 60 (>60) 06/12/18 04:15 Glucose 96 mg/dL (65-99) 06/12/18 04:15 Lactic Acid 1.0 mmol/L (0.4-2.0) 06/12/18 04:15 Calcium 7.6 mg/dL (8.5-10.1) L 06/12/18 04:15 Corrected Calcium 8.9 mg/dL (8.5-10.1) 06/12/18 04:15 Total Bilirubin 0.90 mg/dL (0.2-1.0) 06/12/18 04:15 AST 88 Units/L (15-37) H 06/12/18 04:15 ALT 54 Units/L (12-78) 06/12/18 04:15 Alkaline Phosphatase 218 Units/L (46-116) H 06/12/18 04:15 Total Protein 6.5 g/dL (6.4-8.2) 06/12/18 04:15 Albumin 2.4 g/dL (3.4-5.0) L 06/12/18 04:15 Globulin 4.1 g/dL (2.5-4.5) 06/12/18 04:15 Albumin/Globulin Ratio 0.6 Ratio (1.1-2.1) L 06/12/18 04:15 XRAY XRAY Findings: REPORT DISCUSS WITH PATIENT.
[2018-06-12] MEDS ORDERED: NS 1000 ML 1,000 ML IV SCH (04:00)
--- NOTE | 2018-06-12 04:27 | RAD ---
AP chest. Indication: Cough and fever Comparison: 05/01/2018 Findings: Trachea is midline. Heart size remains enlarged. Increased reticular opacities within the medial right lung base suspicious for developing infiltrate versus subsegmental atelectasis. Chronic interstitial lung changes are again noted. No pleural effusion or pneumothorax. Right chest wall MediPort is unchanged position with its tip terminating within the lower SV C. No acute osseous abnormality. Impression: 1. Increasing reticular opacities within the medial right lung base represents either developing infiltrate or subsegmental atelectasis in the setting of suboptimal inspiration and vascular crowding. Clinical correlation is needed. 2. Stable chronic interstitial lung change and cardiomegaly. Reported By:
[2018-06-12 04:33] LABS: BASOPHILS # (AUTO) 0.1 X10^3/uL (0.0-0.1); BASOPHILS % (AUTO) 0.4 % (0.2-1.0); EOSINOPHILS # (AUTO) 0.1 x10^3/uL (0.0-0.2); EOSINOPHILS % (AUTO) 0.5 % (0.9-2.9); HEMATOCRIT 25.4 % (36.0-47.0); HEMOGLOBIN 8.3 g/dL (12.0-16.0); LYMPHOCYTES % (AUTO) 13.4 % (21.0-51.0); MEAN CORPUSCULAR HEMOGLOBIN 29.7 pg (27.0-34.0); MEAN CORPUSCULAR HGB CONC 32.7 g/dL (33.0-35.0); MEAN PLATELET VOLUME 8.3 fL (7.4-11.0); MONOCYTES # (AUTO) 1.4 x10^3/uL (0.3-0.8); MONOCYTES % (AUTO) 9.7 % (0.0-13.0); NEUTROPHILS # (AUTO) 11.2 x10^3/uL (2.2-4.8); PLATELET COUNT 285 X10^3/uL (150.0-450.0); RED BLOOD COUNT 2.79 X10^6/uL (3.5-5.4); RED CELL DISTRIBUTION WIDTH 22.5 % (11.6-16.5); WHITE BLOOD COUNT 14.7 X10^3/uL (3.6-10.0)
[2018-06-12 04:40] LABS: ALANINE AMINOTRANSFERASE 54 Units/L (12-78); ALBUMIN 2.4 g/dL (3.4-5.0); ALKALINE PHOSPHATASE 218 Units/L (46-116); ASPARTATE AMINO TRANSFERASE 88 Units/L (15-37); BLOOD UREA NITROGEN 9 mg/dL (7-18); CALCIUM 7.6 mg/dL (8.5-10.1); CARBON DIOXIDE 27.8 mmol/L (21-32); CHLORIDE 107 mmol/L (98-107); COR CA(FOR HYPOALB) 8.9 mg/dL (8.5-10.1); CREATININE 0.88 mg/dL (0.55-1.02); SODIUM 143 mmol/L (136-145); TOTAL PROTEIN 6.5 g/dL (6.4-8.2); eGFR NON BLACK RACES > 60 (>60)
[2018-06-12 04:46] LABS: ANISOCYTOSIS 2+; PLATELET MORPHOLOGY COMMENT NORMAL (NORMAL)
[2018-06-12] MEDS: LEVAQUIN PREMIX IV 750 MG 750 MG/150 ML BAG IV ONE ×2 (06:57→07:22)
[2018-06-12] MEDS ORDERED: LEVAQUIN PREMIX IV 750 MG 750 MG/150 ML BAG IV ONE ×2 (06:57)
[2018-06-12] MEDS: DUONEB 0.5 MG/3 MG NEB SCH ×4 (08:18→21:41)
[2018-06-12 08:23] LABS: BASOPHILS # (AUTO) 0.1 X10^3/uL (0.0-0.1); BASOPHILS % (AUTO) 0.4 % (0.2-1.0); EOSINOPHILS # (AUTO) 0.1 x10^3/uL (0.0-0.2); EOSINOPHILS % (AUTO) 0.4 % (0.9-2.9); HEMATOCRIT 24.2 % (36.0-47.0); LYMPHOCYTES # (AUTO) 1.6 X10^3/uL (1.3-2.9); MEAN CORPUSCULAR HEMOGLOBIN 29.9 pg (27.0-34.0); MEAN CORPUSCULAR HGB CONC 32.8 g/dL (33.0-35.0); MEAN CORPUSCULAR VOLUME 91.2 fL (80.0-100.0); MONOCYTES # (AUTO) 1.9 x10^3/uL (0.3-0.8); MONOCYTES % (AUTO) 12.1 % (0.0-13.0); NEUTROPHILS # (AUTO) 12.3 x10^3/uL (2.2-4.8); NEUTROPHILS % (AUTO) 77.1 % (42.0-75.0); PLATELET COUNT 254 X10^3/uL (150.0-450.0); RED BLOOD COUNT 2.66 X10^6/uL (3.5-5.4); WHITE BLOOD COUNT 15.9 X10^3/uL (3.6-10.0)
[2018-06-12 08:27] LABS: ALANINE AMINOTRANSFERASE 48 Units/L (12-78); ALBUMIN 2.3 g/dL (3.4-5.0); ALKALINE PHOSPHATASE 204 Units/L (46-116); ASPARTATE AMINO TRANSFERASE 81 Units/L (15-37); BLOOD UREA NITROGEN 8 mg/dL (7-18); CALCIUM 7.8 mg/dL (8.5-10.1); CARBON DIOXIDE 29.6 mmol/L (21-32); CHLORIDE 108 mmol/L (98-107); COR CA(FOR HYPOALB) 9.2 mg/dL (8.5-10.1); CREATININE 0.91 mg/dL (0.55-1.02); SODIUM 144 mmol/L (136-145); TOTAL PROTEIN 6.3 g/dL (6.4-8.2); eGFR NON BLACK RACES > 60 (>60)
[2018-06-12 08:47] LABS: PLATELET MORPHOLOGY COMMENT NORMAL (NORMAL)
[2018-06-12 08:48] LABS: ANISOCYTOSIS 2+
[2018-06-12] MEDS: LEVAQUIN PREMIX IV 750 MG 750 MG/150 ML BAG IV SCH (08:55)
[2018-06-12] MEDS: TUSSIONEX PENNKINETIC SUSP PO PRN ×2 (09:23→18:10)
[2018-06-12] MEDS: VIBRAMYCIN 100 MG in D5W 250 ML IV 250 ML IV SCH ×2 (09:24→21:28)
[2018-06-12] MEDS: ROBITUSSIN DM PO SCH ×4 (09:24→21:28)
[2018-06-12] MEDS: PERCOCET TAB 5/325 MG PO PRN ×2 (10:04→18:11)
[2018-06-12 10:12] LABS: BILIRUBIN,URINE NEGATIVE (NEGATIVE); GLUCOSE, URINE NEGATIVE (NEGATIVE); KETONES,URINE NEGATIVE (NEGATIVE); LEUKOCYTE ESTERASE ,URINE NEGATIVE (NEGATIVE); NITRITES,URINE NEGATIVE (NEGATIVE); PH,URINE 6.5 (5.0 - 8.0); UROBILINOGEN,URINE NORMAL (NORMAL)
[2018-06-12 10:13] LABS: APPEARANCE,URINE CLEAR (CLEAR); BLOOD/HEMOGLOBIN,URINE NEGATIVE (NEGATIVE); COLOR,URINE YELLOW (YELLOW); PROTEIN,URINE NEGATIVE (NEGATIVE)
[2018-06-12 12:13] VITALS: BMI 40.9
[2018-06-12] MEDS: BUTT CREAM (COMPOUND) TOP PRN (13:09)
--- NOTE | 2018-06-12 14:00 | DR.H&P ---
H&P - History & Physical for Day of: H&P Date: 06/12/18 - Chief Complaint Chief Complaint: FEVER, DIARRHEA "IM SO SICK" - History of Present Illness History of Present Illness: 63 WF ER ADMISSION AFTER PRESENTING WITH CO DIARRHEA FOR OVER A WEEK WITH CO WATER BLISTERS TO HER BUTTOCKS. PT HAD BEEN TAKING LOMOTIL AND HAD ORDERS FOR STOOL STUDIES BUT NOT OBTAINED. PT HAS CXR IN ER REVEALING PNEUMONIA, ELEVATED WBCS. PT HAD PMH OF COPD, CAD, CHF, HTN, OA, RESP FAILURE, BED CONFINEMENT. PT ADMITTED FOR TREATMENT AND EVALUATION OF ACUTE ILLNESS - Past Medical History Past Medical History: Coronary Artery Disease, Hypertension, Anxiety, COPD, Asthma, GERD, Arthritis, CHF - Past Surgical History Surgical History: Appendectomy, Cholecystectomy, Tonsillectomy - Family History Family Medical History: Diabetes Mellitus, Hypertension - Social History Does patient currently use any type of tobacco product: No Have you used tobacco products in the last 12 months: No Type of Tobacco Use: None How many years tobacco product used: 54 Does any household member use tobacco: Yes Alcohol Use: None - Medications Home Medications: ketorolac [From Toradol] Allergy (Verified 06/12/18 03:13) nalbuphine [From Nubain] Allergy (Verified 06/12/18 03:13) Penicillins Allergy (Verified 06/12/18 03:13) Sulfa (Sulfonamide Antibiotics) [SULFA] Allergy (Verified 06/12/18 03:13) BETA BLOCKERS Allergy (Uncoded 06/12/18 03:13) CONTINUE taking the following medications benzonatate 1 cap PO TID PRN 06/12/18 [History] diltiazem HCl 1 cap PO DAILY 06/12/18 [History] furosemide 1 tab PO BID 06/12/18 [History] levocetirizine 1 tab PO HS 06/12/18 [History] montelukast 1 tab PO DAILY 06/12/18 [History] ondansetron HCl 1 tab PO BID PRN 06/12/18 [History] - Review of Systems Constitutional: Fever, Chills, Weakness Eyes: No Symptoms Reported ENT: No Symptoms Reported Respiratory: Shortness of Breath, Wheezing Cardiovascular: Edema Gastrointestinal: Nausea, Abdominal Pain, Diarrhea Genitourinary: Frequency, Incontinence Musculoskeletal: Back Pain, Leg Pain Skin: Wound Neurological: Weakness - Physical Exam Vital Signs: Temperature 98.0 F Pulse Rate [Left] 115 Pulse Rate 115 Respiratory Rate 18 Blood Pressure [Left Arm] 133/63 Blood Pressure [Right Arm] 115/57 Blood Pressure 208/94 O2 Sat by Pulse Oximetry 96 Oriented: Normal Eyes: Normal Ear: Normal Nose: Normal Throat: Normal Respiratory: Diminished Throughout Cardiovascular: Normal, Edema : Normal Auscultation: Bowel Sounds: Increased Palpation: Normal Tenderness: Epigastric Skin: Decreased Turgur, Wound (STAGE 2 ( RUPTURE BLISTER) SACRUM), Other (THIN SHINEY, UPPER POSTERIOR ARMS AND THIGHS, LOWER BACK AND LATERAL 3RD SPACE) Musculoskeletal: Back:Thoracic, Instability, Crepitance Psychiatric: Anxiety Affect: Anxious Speech Pattern: Clear, Appropriate - Assessment/Plan (1) Pneumonia Status: Acute Plan: ADMIT, PNEUMONIA PROTOCOL. IV ATBX, RESP CARE, SUPPLEMENTAL O2. ADMISSI ON CULTURES BLOOD AND SPUTUM. WOUND CULTURE, WOUND CARE. VERIFY HOME MEDICATION (2) Pancreatic abnormality Status: Acute (3) Adult failure to thrive Status: Acute (4) GERD with esophagitis Status: Acute (5) Fever Status: Acute (6) Anemia Status: Acute (7) Chronic kidney disease (CKD) Qualifiers: Chronic kidney disease stage: stage 3 (moderate) Qualified Code(s): N18.3 - Chronic kidney disease, stage 3 (moderate) Status: Chronic (8) Hypertension Status: Chronic (9) COPD (chronic obstructive pulmonary disease) Qualifiers: COPD type: COPD with acute exacerbation Qualified Code(s): J44.1 - Chronic obstructive pulmonary disease with (acute) exacerbation Status: Acute (10) CHF (congestive heart failure) Status: Chronic - Allergies Allergies/Adverse Reactions: Allergies Allergy/AdvReac Type Severity Reaction Status Date / Time ketorolac [From Toradol] Allergy Verified 06/12/18 03:13 nalbuphine [From Nubain] Allergy Verified 06/12/18 03:13 Penicillins Allergy Verified 06/12/18 03:13 Sulfa (Sulfonamide Allergy Verified 06/12/18 03:13 Antibiotics) [SULFA] BETA BLOCKERS Allergy Uncoded 06/12/18 03:13
[2018-06-12 14:46] LABS: STOOL FOR WBC NEGATIVE (NEGATIVE)
[2018-06-12] MEDS: LOVENOX INJ 40 MG SYR SC SCH (15:17)
[2018-06-12] MEDS ORDERED: XANAX PO PRN (15:37)
[2018-06-12] MEDS: XANAX PO PRN (15:38)
[2018-06-12] MEDS: ZOFRAN INJ 4 MG VIAL IVP PRN (16:00)
[2018-06-12] MEDS: CARAFATE PO SCH ×3 (16:06→21:29)
[2018-06-12] MEDS: MICRO K EXTEN CAP 10 MEQ PO SCH ×2 (16:06→21:28)
[2018-06-12] MEDS ORDERED: SALINE 0.9% 3 ML NEB TX ONE (17:00)
[2018-06-12] MEDS ORDERED: SALINE 0.9% 3 ML NEB TX NEB PRN (17:05)
[2018-06-12] MEDS: REGLAN INJ 10 MG VIAL IVP SCH ×2 (17:25→21:29)
[2018-06-12] MEDS: PHENERGAN INJ 25 MG IV PRN (17:25)
--- NOTE | 2018-06-12 19:47 | RAD ---
Abdomen-two views Indication: Cough and fever. History of cervical cancer. Past medical history includes appendectomy and cholecystectomy with hysterectomy and colon resection as well Findings: Lung bases show mild elevation of left hemidiaphragm chronic lung changes and prominent heart size. There are dilated loops of small bowel in the abdomen with a paucity of colonic stool. Clips project over the abdomen. There is no free air or pneumatosis. Impression: Dilated loops of small bowel concerning for small bowel obstruction. This appears new from the prior CT -surgical follow-up recommended. Reported By:
[2018-06-12] MEDS: LASIX PO SCH (21:28)
[2018-06-12] MEDS: NEURONTIN TAB 600 MG PO SCH (21:29)
[2018-06-13] MEDS: PERCOCET TAB 5/325 MG PO PRN ×3 (00:09→21:06)
[2018-06-13] MEDS ORDERED: OFIRMEV IV 1000 MG VIAL 1,000 MG/100 ML VIAL IV PRN (01:23)
[2018-06-13] MEDS: DUONEB 0.5 MG/3 MG NEB SCH ×6 (01:25→20:08)
[2018-06-13] MEDS: PHENERGAN INJ 25 MG IV PRN ×2 (02:21→12:16)
[2018-06-13 06:20] LABS: BASOPHILS # (AUTO) 0.1 X10^3/uL (0.0-0.1); BASOPHILS % (AUTO) 0.8 % (0.2-1.0); EOSINOPHILS % (AUTO) 0.1 % (0.9-2.9); HEMATOCRIT 22.3 % (36.0-47.0); HEMOGLOBIN 7.5 g/dL (12.0-16.0); LYMPHOCYTES # (AUTO) 1.6 X10^3/uL (1.3-2.9); LYMPHOCYTES % (AUTO) 11.6 % (21.0-51.0); MEAN CORPUSCULAR HEMOGLOBIN 30.6 pg (27.0-34.0); MEAN CORPUSCULAR HGB CONC 33.6 g/dL (33.0-35.0); MEAN CORPUSCULAR VOLUME 91.1 fL (80.0-100.0); MEAN PLATELET VOLUME 8.9 fL (7.4-11.0); MONOCYTES # (AUTO) 1.7 x10^3/uL (0.3-0.8); MONOCYTES % (AUTO) 12.5 % (0.0-13.0); PLATELET COUNT 217 X10^3/uL (150.0-450.0); RED BLOOD COUNT 2.45 X10^6/uL (3.5-5.4); RED CELL DISTRIBUTION WIDTH 22.5 % (11.6-16.5); WHITE BLOOD COUNT 13.4 X10^3/uL (3.6-10.0)
[2018-06-13] MEDS: NEURONTIN TAB 600 MG PO SCH ×3 (06:21→21:02)
[2018-06-13] MEDS: REGLAN INJ 10 MG VIAL IVP SCH ×4 (06:21→21:03)
[2018-06-13] MEDS: CARAFATE PO SCH ×5 (06:22→21:02)
[2018-06-13 06:38] LABS: ALANINE AMINOTRANSFERASE 85 Units/L (12-78); ALBUMIN 1.9 g/dL (3.4-5.0); ALKALINE PHOSPHATASE 197 Units/L (46-116); ASPARTATE AMINO TRANSFERASE 177 Units/L (15-37); BLOOD UREA NITROGEN 6 mg/dL (7-18); CALCIUM 7.7 mg/dL (8.5-10.1); CARBON DIOXIDE 30.3 mmol/L (21-32); CHLORIDE 103 mmol/L (98-107); COR CA(FOR HYPOALB) 9.4 mg/dL (8.5-10.1); CREATININE 0.84 mg/dL (0.55-1.02); SODIUM 139 mmol/L (136-145); TOTAL PROTEIN 5.9 g/dL (6.4-8.2); eGFR NON BLACK RACES > 60 (>60)
[2018-06-13 07:05] LABS: ANISOCYTOSIS 2+; HYPOCHROMASIA SLIGHT; PLATELET MORPHOLOGY COMMENT NORMAL (NORMAL)
[2018-06-13] MEDS: VIBRAMYCIN 100 MG in D5W 250 ML IV 250 ML IV SCH ×2 (08:42→21:01)
[2018-06-13] MEDS: LEVAQUIN PREMIX IV 750 MG 750 MG/150 ML BAG IV SCH (08:43)
[2018-06-13] MEDS: LOVENOX INJ 40 MG SYR SC SCH (08:43)
[2018-06-13] MEDS: REQUIP PO SCH (08:43)
[2018-06-13] MEDS: ROBITUSSIN DM PO SCH ×8 (08:43→21:02)
[2018-06-13] MEDS: ALDACTONE TAB 25 MG PO SCH (08:43)
[2018-06-13] MEDS: SINGULAIR TAB 10 MG PO SCH (08:44)
[2018-06-13] MEDS: LASIX PO SCH ×2 (08:44→21:02)
[2018-06-13] MEDS: CARDIZEM SR 120 MG PO SCH (08:44)
[2018-06-13] MEDS: MICRO K EXTEN CAP 10 MEQ PO SCH (08:44)
[2018-06-13] MEDS ORDERED: DILTIAZEM HCL PO SCH (09:00)
--- NOTE | 2018-06-13 14:15 | PCM.PROG ---
Progress Note - Progress Note for Day of Date of Exam: 06/13/18 - Subjective Subjective: 63 WF ER ADMISSION WITH FEVER, N/V/D AND PNEUMONIA. PT CURRENTLY ON IV ATBX. PT HAD INCREASED VOMITING EPISODES, KUB REVEALED SBO. PT REFUSING NG TUBE, DISCUSSED LABS AND DIAGNOSTIC TESTS. PT CONTINUES TO REFUSE TREATMENT PLAN. PT HGB 7.5, TYPE SCREEN. OCCULT STOOL NEGATIVE, WBC 13.5. PT STOOL CULTURE NEGATIVE AT THIS TIME. CT ABD PELVIS W/O CONTRAST ORDERED TO ASSESS SBO, CONSULTED DR MCCARTNEY, NPO AND CONTINUE NAUSEA CONTROL, PPI - Past Medical Family Social History Past Med/Fam/Surg Hx: No changes since H&P Allergies: Allergies ketorolac [From Toradol] Allergy (Verified 06/12/18 03:13) nalbuphine [From Nubain] Allergy (Verified 06/12/18 03:13) Penicillins Allergy (Verified 06/12/18 03:13) Sulfa (Sulfonamide Antibiotics) [SULFA] Allergy (Verified 06/12/18 03:13) BETA BLOCKERS Allergy (Uncoded 06/12/18 03:13) - Review of Systems ROS: No change since H&P - Vital Signs and I&O's Vital Signs: Temperature 99.8 F Pulse Rate [Left] 106 Pulse Rate 117 Respiratory Rate 22 Blood Pressure [Left Arm] 159/70 Blood Pressure [Right Arm] 115/57 Blood Pressure 208/94 O2 Sat by Pulse Oximetry 93 Intake and Output: Intake & Output 06/11/18 06/12/18 06/13/18 06/14/18 11:59 11:59 11:59 11:59 Intake Total 986 / 986 Output Total 3150 / 3150 Balance -2164 / -2164 - Physical Exam Oriented: Normal Eyes: Normal Ear: Normal Nose: Normal Throat: Normal Respiratory: Wheezes Cardiovascular: Normal, Edema : Normal Auscultation: Bowel Sounds: Decreased Tenderness: Epigastric Skin: Decreased Turgur, Wound (STAGE 2 ( RUPTURE BLISTER) SACRUM), Other (THIN SHINEY, UPPER POSTERIOR ARMS AND THIGHS, LOWER BACK AND LATERAL 3RD SPACE) Musculoskeletal: Back:Thoracic, Instability, Crepitance Psychiatric: Anxiety Affect: Anxious Speech Pattern: Clear, Appropriate - Laboratory and Diagnostics Result Diagrams: 06/13/18 05:40 06/13/18 05:40 Labs: 06/12/18 14:00 Stool Stool Culture - Preliminary 06/12/18 14:00 Stool - Final 06/12/18 09:50 Urine,Clean Catch Urine Culture - Preliminary Laboratory WBC 13.4 X10^3/uL (3.6-10.0) H 06/13/18 05:40 RBC 2.45 X10^6/uL (3.5-5.4) L 06/13/18 05:40 Hgb 7.5 g/dL (12.0-16.0) L 06/13/18 05:40 Hct 22.3 % (36.0-47.0) L 06/13/18 05:40 MCV 91.1 fL (80.0-100.0) 06/13/18 05:40 MCH 30.6 pg (27.0-34.0) 06/13/18 05:40 MCHC 33.6 g/dL (33.0-35.0) 06/13/18 05:40 RDW 22.5 % (11.6-16.5) H 06/13/18 05:40 Plt Count 217 X10^3/uL (150.0-450.0) 06/13/18 05:40 Plt Count Comment Adequate (ADEQUATE) 06/13/18 05:40 MPV 8.9 fL (7.4-11.0) 06/13/18 05:40 Neut % (Auto) 75.0 % (42.0-75.0) 06/13/18 05:40 Lymph % (Auto) 11.6 % (21.0-51.0) L 06/13/18 05:40 [place] % (Auto) 12.5 % (0.0-13.0) 06/13/18 05:40 Eos % (Auto) 0.1 % (0.9-2.9) L 06/13/18 05:40 Baso % (Auto) 0.8 % (0.2-1.0) 06/13/18 05:40 Neut # (Auto) 10.0 x10^3/uL (2.2-4.8) H 06/13/18 05:40 Lymph # (Auto) 1.6 X10^3/uL (1.3-2.9) 06/13/18 05:40 [place] # (Auto) 1.7 x10^3/uL (0.3-0.8) H 06/13/18 05:40 Eos # (Auto) 0.0 x10^3/uL (0.0-0.2) 06/13/18 05:40 Baso # (Auto) 0.1 X10^3/uL (0.0-0.1) 06/13/18 05:40 Absolute Nucleated RBC 0.0 /100WBC 06/13/18 05:40 Total Counted 100 06/13/18 05:40 Neutrophils % (Manual) 78 % (39-76) H 06/13/18 05:40 Lymphocytes % (Manual) 15 % (13-43) 06/13/18 05:40 Monocytes % (Manual) 7 % (4-9) 06/13/18 05:40 Plt Morphology Comment Normal (NORMAL) 06/13/18 05:40 RBC Morphology Abnormal (NORMAL) A 06/13/18 05:40 Hypochromasia Slight A 06/13/18 05:40 Anisocytosis 2+ A 06/13/18 05:40 Sodium 139 mmol/L (136-145) 06/13/18 05:40 Corrected Sodium TNP 06/13/18 05:40 Potassium 3.3 mmol/L (3.5-5.1) L 06/13/18 05:40 Chloride 103 mmol/L (98-107) 06/13/18 05:40 Carbon Dioxide 30.3 mmol/L (21-32) 06/13/18 05:40 BUN 6 mg/dL (7-18) L 06/13/18 05:40 Creatinine 0.84 mg/dL (0.55-1.02) 06/13/18 05:40 Est GFR (MDRD) Af Amer > 60 (>60) 06/13/18 05:40 Est GFR (MDRD) Non-Af > 60 (>60) 06/13/18 05:40 Glucose 97 mg/dL (65-99) 06/13/18 05:40 Lactic Acid 1.0 mmol/L (0.4-2.0) 06/12/18 04:15 Calcium 7.7 mg/dL (8.5-10.1) L 06/13/18 05:40 Corrected Calcium 9.4 mg/dL (8.5-10.1) 06/13/18 05:40 Total Bilirubin 1.70 mg/dL (0.2-1.0) H 06/13/18 05:40 AST 177 Units/L (15-37) H 06/13/18 05:40 ALT 85 Units/L (12-78) H 06/13/18 05:40 Alkaline Phosphatase 197 Units/L (46-116) H 06/13/18 05:40 Total Protein 5.9 g/dL (6.4-8.2) L 06/13/18 05:40 Albumin 1.9 g/dL (3.4-5.0) L 06/13/18 05:40 Globulin 4.0 g/dL (2.5-4.5) 06/13/18 05:40 Albumin/Globulin Ratio 0.5 Ratio (1.1-2.1) L 06/13/18 05:40 Specimen Type Catherized urine 06/12/18 09:50 Urine Color Yellow (YELLOW) 06/12/18 09:50 Urine Appearance Clear (CLEAR) 06/12/18 09:50 Urine pH 6.5 (5.0 - 8.0) 06/12/18 09:50 Ur Specific M[place] 1.005 (1.000-1.030) 06/12/18 09:50 Urine Protein Negative (NEGATIVE) 06/12/18 09:50 Urine Glucose (UA) Negative (NEGATIVE) 06/12/18 09:50 Urine Ketones Negative (NEGATIVE) 06/12/18 09:50 Urine Occult Blood Negative (NEGATIVE) 06/12/18 09:50 Urine Nitrite Negative (NEGATIVE) 06/12/18 09:50 Urine Bilirubin Negative (NEGATIVE) 06/12/18 09:50 Urine Urobilinogen Normal (NORMAL) 06/12/18 09:50 Ur Leukocyte Esterase Negative (NEGATIVE) 06/12/18 09:50 Stool Description 8g unformed brown 06/12/18 14:00 Stl Occult Blood (IFOB) Negative (NEGATIVE) 06/12/18 14:00 Stool for White Cells Negative (NEGATIVE) 06/12/18 14:00 Stl C. diff Tox B Gene Negative (NEGATIVE) 06/12/18 14:00 Stl C. diff [id number] Negative (NEGATIVE) 06/12/18 14:00 - Plan (1) Pneumonia Status: Acute Plan: PNEUMONIA PROTOCOL. IV ATBX, RESP CARE, SUPPLEMENTAL O2. ADMISSION CULTURES BLOOD AND SPUTUM (2) Pancreatic abnormality Status: Acute (3) Adult failure to thrive Status: Acute (4) GERD with esophagitis Status: Acute (5) Fever Status: Acute (6) Anemia Status: Acute Plan: TYPE AND SCREEN. OCCULT STOOL NEGATIVE. MONITOR H& H (7) Chronic kidney disease (CKD) Status: Chronic Qualifiers: Chronic kidney disease stage: stage 3 (moderate) Qualified Code(s): N18.3 - Chronic kidney disease, stage 3 (moderate) (8) Hypertension Status: Chronic (9) COPD (chronic obstructive pulmonary disease) Status: Acute Qualifiers: COPD type: COPD with acute exacerbation Qualified Code(s): J44.1 - Chronic obstructive pulmonary disease with (acute) exacerbation (10) CHF (congestive heart failure) Status: Chronic (11) SBO (small bowel obstruction) Status: Acute Plan: NPO, [facility]UBE AT [facility]. SURGICAL CONSULT. CT ABD PELVIS
--- NOTE | 2018-06-13 14:23 | CT ---
HISTORY: Nausea, vomiting, abdominal pain Study: CT abdomen pelvis without contrast Comparison: 05/20/2018 Technique: Axial noncontrast images with coronal and sagittal reformats. Dose reduction procedures were used with mA/kv adjusted for body size. The examination is limited due to the lack of intravenous and oral contrast. The examination was performed in this manner at the sole discretion of the ordering caregiver and without input requested from or given by Radiology. Findings: Small bilateral pleural effusions are present. Minimal atelectatic changes are present in both lung bases. Mild interstitial lung changes are present. The liver is enlarged and decreased in attenuation suggestive of fatty infiltration. The patient appears to be status post cholecystectomy. The spleen, adrenal glands, and pancreas are within normal limits to the limitations of an unenhanced examination. The kidneys are unobstructed and without stones. No ureteral calculi are identified. Calcific atherosclerotic changes present in a nondilated abdominal aorta. No intraperitoneal or retroperitoneal lymphadenopathy of significance is identified. The appendix is not identified with absolute certainty. There are no secondary signs appendicitis. There are no findings suggestive of diverticulitis or colitis. There are no findings suggestive of enteritis or small bowel obstruction. Examination of the pelvis demonstrated no evidence for pelvic masses, pelvic fluid, or pelvic lymphadenopathy. There is a Giron catheter draining the bladder. No significant lytic or blastic skeletal lesions are identified. IMPRESSION: Diffuse fatty infiltration of the liver Bibasilar atelectatic changes, interstitial lung disease, and minimal small pleural effusions No acute abnormality in the abdomen or pelvis to the limitations of an examination performed without intravenous and without oral contrast. Reported By:
[2018-06-13 15:11] LABS: HEMATOCRIT 20.8 % (36.0-47.0); HEMOGLOBIN 7.1 g/dL (12.0-16.0)
[2018-06-13] MEDS: NS 1/2 1000 ML IV 1,000 ML IV SCH (15:20)
[2018-06-13] MEDS ORDERED: NS 1/2 1000 ML IV 1,000 ML IV ONE (15:21)
[2018-06-13] MEDS: XANAX PO PRN (21:06)
[2018-06-13 23:18] LABS: HEMOGLOBIN 6.5 g/dL (12.0-16.0)
[2018-06-13 23:20] LABS: HEMATOCRIT 19.1 % (36.0-47.0)
[2018-06-13] MEDS ORDERED: TYLENOL 325 MG TAB PO ONE (23:35)
[2018-06-13] MEDS ORDERED: BENADRYL INJ 50 MG VIAL IVP ONE (23:35)
[2018-06-13] MEDS ORDERED: NS 1/2 1000 ML IV 1,000 ML IV SCH (23:40)
[2018-06-13] MEDS ORDERED: NS 1000 ML 1,000 ML IV SCH (23:45)
[2018-06-14] MEDS: MICRO K EXTEN CAP 10 MEQ PO SCH ×3 (00:03→20:38)
[2018-06-14] MEDS: DUONEB 0.5 MG/3 MG NEB SCH ×6 (00:10→20:58)
[2018-06-14 00:21] LABS: IRON 10 ug/dL (50-175); TOTAL IRON BINDING CAPACITY 127 ug/dL (250-450)
[2018-06-14] MEDS ORDERED: NS 250 ML IV 250 ML IV ONE ×2 (00:48→05:00)
[2018-06-14] MEDS: NEURONTIN TAB 600 MG PO SCH ×3 (06:16→21:45)
[2018-06-14] MEDS: CARAFATE PO SCH ×4 (06:16→20:38)
[2018-06-14] MEDS: REGLAN INJ 10 MG VIAL IVP SCH ×4 (06:34→20:38)
[2018-06-14] MEDS: NS 1/2 1000 ML IV 1,000 ML IV SCH ×2 (07:04→12:52)
[2018-06-14] MEDS: ROBITUSSIN DM PO SCH ×8 (07:04→22:18)
[2018-06-14] MEDS: TUSSIONEX PENNKINETIC SUSP PO PRN ×2 (09:05→20:50)
[2018-06-14] MEDS: VIBRAMYCIN 100 MG in D5W 250 ML IV 250 ML IV SCH ×2 (09:05→20:37)
[2018-06-14] MEDS: LEVAQUIN PREMIX IV 750 MG 750 MG/150 ML BAG IV SCH (09:05)
[2018-06-14] MEDS: ZOFRAN INJ 4 MG VIAL IVP PRN ×2 (09:06→20:40)
[2018-06-14] MEDS: PERCOCET TAB 5/325 MG PO PRN ×3 (09:06→21:42)
[2018-06-14] MEDS: ALDACTONE TAB 25 MG PO SCH (09:06)
[2018-06-14] MEDS: REQUIP PO SCH (09:06)
[2018-06-14] MEDS: XANAX PO PRN ×2 (09:06→20:39)
[2018-06-14] MEDS: LASIX PO SCH ×2 (09:06→20:38)
[2018-06-14] MEDS: CARDIZEM SR 120 MG PO SCH (09:06)
[2018-06-14] MEDS: SINGULAIR TAB 10 MG PO SCH (09:06)
[2018-06-14] MEDS ORDERED: PHARMACY CONSULT - DOSE _____ XX SCH (10:00)
[2018-06-14] MEDS ORDERED: NS 100 ML IV 100 ML with VENOFER 200 MG IV NR ×2 (10:00)
[2018-06-14] MEDS: LOVENOX INJ 40 MG SYR SC SCH (10:21)
[2018-06-14 10:32] LABS: BASOPHILS % (AUTO) 0.5 % (0.2-1.0); EOSINOPHILS # (AUTO) 0.1 x10^3/uL (0.0-0.2); HEMATOCRIT 26.8 % (36.0-47.0); HEMOGLOBIN 9.2 g/dL (12.0-16.0); LYMPHOCYTES # (AUTO) 0.6 X10^3/uL (1.3-2.9); LYMPHOCYTES % (AUTO) 7.8 % (21.0-51.0); MEAN CORPUSCULAR HEMOGLOBIN 30.1 pg (27.0-34.0); MEAN CORPUSCULAR HGB CONC 34.5 g/dL (33.0-35.0); MEAN CORPUSCULAR VOLUME 87.2 fL (80.0-100.0); MEAN PLATELET VOLUME 8.8 fL (7.4-11.0); MONOCYTES # (AUTO) 0.6 x10^3/uL (0.3-0.8); MONOCYTES % (AUTO) 7.1 % (0.0-13.0); NEUTROPHILS # (AUTO) 6.9 x10^3/uL (2.2-4.8); NEUTROPHILS % (AUTO) 83.6 % (42.0-75.0); PLATELET COUNT 211 X10^3/uL (150.0-450.0); RED BLOOD COUNT 3.07 X10^6/uL (3.5-5.4); RED CELL DISTRIBUTION WIDTH 21.4 % (11.6-16.5); WHITE BLOOD COUNT 8.3 X10^3/uL (3.6-10.0)
[2018-06-14 10:40] LABS: ALANINE AMINOTRANSFERASE 60 Units/L (12-78); ALKALINE PHOSPHATASE 176 Units/L (46-116); ASPARTATE AMINO TRANSFERASE 74 Units/L (15-37); BLOOD UREA NITROGEN 9 mg/dL (7-18); CARBON DIOXIDE 30.3 mmol/L (21-32); CHLORIDE 102 mmol/L (98-107); COR CA(FOR HYPOALB) 9.6 mg/dL (8.5-10.1); CREATININE 0.97 mg/dL (0.55-1.02); SODIUM 139 mmol/L (136-145); TOTAL PROTEIN 6.2 g/dL (6.4-8.2); eGFR NON BLACK RACES > 60 (>60)
[2018-06-14 10:51] LABS: ANISOCYTOSIS 1+; PLATELET MORPHOLOGY COMMENT NORMAL (NORMAL)
[2018-06-14] MEDS ORDERED: NS 1/2 1000 ML IV 1,000 ML IV ONE (12:47)
[2018-06-14 18:39] LABS: HEMATOCRIT 27.5 % (36.0-47.0); HEMOGLOBIN 9.5 g/dL (12.0-16.0)
[2018-06-15] MEDS: DUONEB 0.5 MG/3 MG NEB SCH ×6 (00:35→21:01)
[2018-06-15] MEDS: PERCOCET TAB 5/325 MG PO PRN ×3 (04:58→20:18)
[2018-06-15] MEDS: NEURONTIN TAB 600 MG PO SCH ×3 (05:06→21:09)
[2018-06-15] MEDS: CARAFATE PO SCH ×4 (05:32→20:11)
[2018-06-15] MEDS: REGLAN INJ 10 MG VIAL IVP SCH ×4 (05:32→20:11)
[2018-06-15 05:52] LABS: BASOPHILS % (AUTO) 0.5 % (0.2-1.0); EOSINOPHILS # (AUTO) 0.1 x10^3/uL (0.0-0.2); EOSINOPHILS % (AUTO) 1.7 % (0.9-2.9); HEMATOCRIT 26.7 % (36.0-47.0); LYMPHOCYTES # (AUTO) 0.7 X10^3/uL (1.3-2.9); LYMPHOCYTES % (AUTO) 9.7 % (21.0-51.0); MEAN CORPUSCULAR HEMOGLOBIN 29.7 pg (27.0-34.0); MEAN CORPUSCULAR HGB CONC 33.7 g/dL (33.0-35.0); MEAN CORPUSCULAR VOLUME 88.1 fL (80.0-100.0); MEAN PLATELET VOLUME 9.4 fL (7.4-11.0); MONOCYTES # (AUTO) 0.9 x10^3/uL (0.3-0.8); MONOCYTES % (AUTO) 12.3 % (0.0-13.0); NEUTROPHILS # (AUTO) 5.3 x10^3/uL (2.2-4.8); NEUTROPHILS % (AUTO) 75.8 % (42.0-75.0); PLATELET COUNT 214 X10^3/uL (150.0-450.0); RED BLOOD COUNT 3.03 X10^6/uL (3.5-5.4); RED CELL DISTRIBUTION WIDTH 22.3 % (11.6-16.5)
[2018-06-15 06:05] LABS: ALANINE AMINOTRANSFERASE 46 Units/L (12-78); ALKALINE PHOSPHATASE 177 Units/L (46-116); ASPARTATE AMINO TRANSFERASE 53 Units/L (15-37); BLOOD UREA NITROGEN 7 mg/dL (7-18); CALCIUM 7.8 mg/dL (8.5-10.1); CARBON DIOXIDE 29.9 mmol/L (21-32); CHLORIDE 105 mmol/L (98-107); COR CA(FOR HYPOALB) 9.4 mg/dL (8.5-10.1); CREATININE 0.97 mg/dL (0.55-1.02); SODIUM 142 mmol/L (136-145); TOTAL PROTEIN 6.3 g/dL (6.4-8.2); eGFR NON BLACK RACES > 60 (>60)
[2018-06-15 06:36] LABS: ANISOCYTOSIS 2+; PLATELET MORPHOLOGY COMMENT NORMAL (NORMAL)
[2018-06-15] MEDS: REQUIP PO SCH (08:42)
[2018-06-15] MEDS: MICRO K EXTEN CAP 10 MEQ PO SCH ×2 (08:42→20:11)
[2018-06-15] MEDS: ALDACTONE TAB 25 MG PO SCH (08:42)
[2018-06-15] MEDS: ROBITUSSIN DM PO SCH ×4 (08:42→20:30)
[2018-06-15] MEDS: CARDIZEM SR 120 MG PO SCH (08:42)
[2018-06-15] MEDS: LEVAQUIN PREMIX IV 750 MG 750 MG/150 ML BAG IV SCH (08:42)
[2018-06-15] MEDS: XANAX PO PRN ×2 (08:42→20:11)
[2018-06-15] MEDS: LOVENOX INJ 40 MG SYR SC SCH (08:43)
[2018-06-15] MEDS: ZOFRAN INJ 4 MG VIAL IVP PRN ×2 (08:43→20:11)
[2018-06-15] MEDS: SINGULAIR TAB 10 MG PO SCH (08:43)
[2018-06-15] MEDS: LASIX PO SCH ×2 (08:43→20:11)
[2018-06-15] MEDS: TUSSIONEX PENNKINETIC SUSP PO PRN (08:43)
[2018-06-15] MEDS: VIBRAMYCIN 100 MG in D5W 250 ML IV 250 ML IV SCH ×2 (11:41→20:11)
[2018-06-15] MEDS: NS 1/2 1000 ML IV 1,000 ML IV SCH (15:00)
[2018-06-15] MEDS ORDERED: NS 1/2 1000 ML IV 1,000 ML IV ONE (15:02)
[2018-06-15 16:08] LABS: BILIRUBIN,URINE NEGATIVE (NEGATIVE); BLOOD/HEMOGLOBIN,URINE 1+ (NEGATIVE); GLUCOSE, URINE NEGATIVE (NEGATIVE); KETONES,URINE NEGATIVE (NEGATIVE); LEUKOCYTE ESTERASE ,URINE NEGATIVE (NEGATIVE); NITRITES,URINE NEGATIVE (NEGATIVE); PROTEIN,URINE NEGATIVE (NEGATIVE); UROBILINOGEN,URINE NORMAL (NORMAL)
[2018-06-15 16:36] LABS: APPEARANCE,URINE CLEAR (CLEAR); COLOR,URINE YELLOW (YELLOW)
[2018-06-15 16:40] LABS: AMORPHOUS SEDIMENT,UR 1+ /HPF (NEGATIVE); BACTERIA,URINE NEGATIVE /HPF (NEGATIVE); RBC,URINE 0-2 /HPF (NONE SEEN); SQUAMOUS EPITHELIAL CELL,UR FEW /HPF (NEGATIVE)
--- NOTE | 2018-06-15 17:14 | RAD ---
History: Pneumonia Technique: AP chest Comparison: 06/12/2018 Findings: Allowing for differences in technique, positioning, and degree of inspiration, there has been no significant interval change in the radiographic appearance of the chest. Right-sided chest port again noted. Reticulonodular interstitial opacities noted both lung bases, right more so than left. Mild left basal pleural thickening versus small left pleural effusion. Impression: 1. No significant interval change with findings as above. Reticulonodular interstitial opacities again demonstrated in the right lung base. A right basilar pneumonia is not exclude Reported By:
[2018-06-15 18:09] LABS: HEMATOCRIT 30.7 % (36.0-47.0); HEMOGLOBIN 10.4 g/dL (12.0-16.0)
[2018-06-15] MEDS ORDERED: LOMOTIL PO ONE (20:06)
[2018-06-15] MEDS: BUTT CREAM (COMPOUND) TOP PRN (22:16)
[2018-06-16] MEDS: TYLENOL 325 MG TAB PO PRN (00:36)
[2018-06-16] MEDS: DUONEB 0.5 MG/3 MG NEB SCH ×6 (00:50→20:34)
[2018-06-16] MEDS: NEURONTIN TAB 600 MG PO SCH ×3 (05:29→21:27)
[2018-06-16] MEDS: REGLAN INJ 10 MG VIAL IVP SCH ×4 (05:39→20:15)
[2018-06-16] MEDS: CARAFATE PO SCH ×4 (05:39→20:12)
[2018-06-16 06:14] LABS: BASOPHILS # (AUTO) 0.1 X10^3/uL (0.0-0.1); BASOPHILS % (AUTO) 0.6 % (0.2-1.0); EOSINOPHILS # (AUTO) 0.2 x10^3/uL (0.0-0.2); HEMATOCRIT 28.2 % (36.0-47.0); HEMOGLOBIN 9.4 g/dL (12.0-16.0); LYMPHOCYTES # (AUTO) 0.9 X10^3/uL (1.3-2.9); MEAN CORPUSCULAR HGB CONC 33.5 g/dL (33.0-35.0); MEAN CORPUSCULAR VOLUME 89.5 fL (80.0-100.0); MONOCYTES # (AUTO) 1.2 x10^3/uL (0.3-0.8); MONOCYTES % (AUTO) 14.1 % (0.0-13.0); NEUTROPHILS # (AUTO) 5.9 x10^3/uL (2.2-4.8); NEUTROPHILS % (AUTO) 72.3 % (42.0-75.0); PLATELET COUNT 224 X10^3/uL (150.0-450.0); RED BLOOD COUNT 3.15 X10^6/uL (3.5-5.4); RED CELL DISTRIBUTION WIDTH 21.6 % (11.6-16.5); WHITE BLOOD COUNT 8.2 X10^3/uL (3.6-10.0)
[2018-06-16 06:24] LABS: ANISOCYTOSIS 1+; PLATELET MORPHOLOGY COMMENT NORMAL (NORMAL)
[2018-06-16 06:26] LABS: ALANINE AMINOTRANSFERASE 38 Units/L (12-78); ALBUMIN 2.1 g/dL (3.4-5.0); ALKALINE PHOSPHATASE 178 Units/L (46-116); ASPARTATE AMINO TRANSFERASE 33 Units/L (15-37); BLOOD UREA NITROGEN 5 mg/dL (7-18); CALCIUM 7.8 mg/dL (8.5-10.1); CARBON DIOXIDE 35.2 mmol/L (21-32); CHLORIDE 104 mmol/L (98-107); COR CA(FOR HYPOALB) 9.3 mg/dL (8.5-10.1); CREATININE 0.93 mg/dL (0.55-1.02); SODIUM 143 mmol/L (136-145); TOTAL PROTEIN 6.4 g/dL (6.4-8.2); eGFR NON BLACK RACES > 60 (>60)
--- NOTE | 2018-06-16 06:45 | RAD ---
HISTORY: Nausea, vomiting, abdominal pain Study: KUB Comparison: 06/12/2018, CT abdomen pelvis 06/13/2018 Findings: The abdominal gas pattern is nonspecific and nonobstructive. The previously noted mildly dilated small bowel is not identified. Gas is present within the ascending and transverse colon. No abnormal masses or abnormal calcifications are identified. The regional skeleton is intact. IMPRESSION: Unremarkable KUB Reported By:
[2018-06-16] MEDS: LEVAQUIN PREMIX IV 750 MG 750 MG/150 ML BAG IV SCH (08:27)
[2018-06-16] MEDS: SINGULAIR TAB 10 MG PO SCH (08:27)
[2018-06-16] MEDS: PERCOCET TAB 5/325 MG PO PRN ×3 (08:28→20:13)
[2018-06-16] MEDS: ROBITUSSIN DM PO SCH ×4 (08:28→20:15)
[2018-06-16] MEDS: ALDACTONE TAB 25 MG PO SCH (08:28)
[2018-06-16] MEDS: CARDIZEM SR 120 MG PO SCH (08:28)
[2018-06-16] MEDS: MICRO K EXTEN CAP 10 MEQ PO SCH ×2 (08:28→20:15)
[2018-06-16] MEDS: LASIX PO SCH ×2 (08:28→20:14)
[2018-06-16] MEDS: VIBRAMYCIN 100 MG in D5W 250 ML IV 250 ML IV SCH ×2 (08:30→20:17)
[2018-06-16] MEDS: REQUIP PO SCH (08:30)
[2018-06-16] MEDS: LOVENOX INJ 40 MG SYR SC SCH (08:35)
[2018-06-16] MEDS: TUSSIONEX PENNKINETIC SUSP PO PRN ×2 (10:15→22:09)
[2018-06-16] MEDS: WELCHOL PO SCH (16:35)
[2018-06-16 18:26] LABS: HEMATOCRIT 29.7 % (36.0-47.0)
--- NOTE | 2018-06-16 18:29 | RAD ---
Indication: Shortness of breath Exam: Portable chest Comparison: 05/01/2018 Findings: The heart is normal. The pulmonary vessels are normal. The lungs are mildly hyperinflated and emphysematous . There are hazy subsegmental opacities scattered along the lung bases which are much less prominent. There is a right Port-A-Cath in place which is unchanged. No effusion is seen. Impression: Hazy opacities along the lung bases which is less prominent and may represent residual scarring vs recurrent atelectasis or early infiltrates. Reported By:
[2018-06-16] MEDS: ZOFRAN INJ 4 MG VIAL IVP PRN (20:15)
[2018-06-16] MEDS: XANAX PO PRN (20:15)
[2018-06-17] MEDS: ZOFRAN INJ 4 MG VIAL IVP PRN ×2 (00:01→20:27)
[2018-06-17] MEDS: DUONEB 0.5 MG/3 MG NEB SCH ×6 (01:29→21:00)
[2018-06-17] MEDS: NEURONTIN TAB 600 MG PO SCH ×3 (05:19→21:39)
[2018-06-17] MEDS: CARAFATE PO SCH ×4 (05:34→20:27)
[2018-06-17] MEDS: REGLAN INJ 10 MG VIAL IVP SCH ×4 (05:34→20:27)
[2018-06-17] MEDS: WELCHOL PO SCH ×3 (06:06→17:57)
[2018-06-17 06:19] LABS: BASOPHILS # (AUTO) 0.1 X10^3/uL (0.0-0.1); BASOPHILS % (AUTO) 0.6 % (0.2-1.0); EOSINOPHILS # (AUTO) 0.3 x10^3/uL (0.0-0.2); EOSINOPHILS % (AUTO) 3.2 % (0.9-2.9); HEMATOCRIT 31.3 % (36.0-47.0); HEMOGLOBIN 10.5 g/dL (12.0-16.0); LYMPHOCYTES # (AUTO) 1.2 X10^3/uL (1.3-2.9); LYMPHOCYTES % (AUTO) 12.1 % (21.0-51.0); MEAN CORPUSCULAR HEMOGLOBIN 30.1 pg (27.0-34.0); MEAN CORPUSCULAR HGB CONC 33.6 g/dL (33.0-35.0); MEAN CORPUSCULAR VOLUME 89.7 fL (80.0-100.0); MONOCYTES # (AUTO) 1.2 x10^3/uL (0.3-0.8); MONOCYTES % (AUTO) 12.4 % (0.0-13.0); NEUTROPHILS # (AUTO) 6.9 x10^3/uL (2.2-4.8); NEUTROPHILS % (AUTO) 71.7 % (42.0-75.0); PLATELET COUNT 290 X10^3/uL (150.0-450.0); RED BLOOD COUNT 3.49 X10^6/uL (3.5-5.4); WHITE BLOOD COUNT 9.6 X10^3/uL (3.6-10.0)
[2018-06-17] MEDS: TYLENOL 325 MG TAB PO PRN (06:41)
[2018-06-17 06:43] LABS: ALANINE AMINOTRANSFERASE 32 Units/L (12-78); ALBUMIN 2.3 g/dL (3.4-5.0); ALKALINE PHOSPHATASE 194 Units/L (46-116); ASPARTATE AMINO TRANSFERASE 27 Units/L (15-37); BLOOD UREA NITROGEN 7 mg/dL (7-18); CALCIUM 8.1 mg/dL (8.5-10.1); CARBON DIOXIDE 34.8 mmol/L (21-32); CHLORIDE 100 mmol/L (98-107); COR CA(FOR HYPOALB) 9.5 mg/dL (8.5-10.1); CREATININE 0.93 mg/dL (0.55-1.02); SODIUM 138 mmol/L (136-145); TOTAL PROTEIN 7.1 g/dL (6.4-8.2); eGFR NON BLACK RACES > 60 (>60)
[2018-06-17 07:05] LABS: ANISOCYTOSIS 1+; PLATELET MORPHOLOGY COMMENT NORMAL (NORMAL)
[2018-06-17] MEDS: MICRO K EXTEN CAP 10 MEQ PO SCH ×2 (09:33→20:27)
[2018-06-17] MEDS: ALDACTONE TAB 25 MG PO SCH (09:34)
[2018-06-17] MEDS: REQUIP PO SCH (09:34)
[2018-06-17] MEDS: ROBITUSSIN DM PO SCH ×4 (09:34→20:28)
[2018-06-17] MEDS: VIBRAMYCIN 100 MG in D5W 250 ML IV 250 ML IV SCH ×2 (09:35→20:27)
[2018-06-17] MEDS: SINGULAIR TAB 10 MG PO SCH (09:35)
[2018-06-17] MEDS: LASIX PO SCH ×2 (09:35→20:26)
[2018-06-17] MEDS: CARDIZEM SR 120 MG PO SCH (09:35)
[2018-06-17] MEDS: LOVENOX INJ 40 MG SYR SC SCH ×2 (09:36→12:09)
[2018-06-17] MEDS: LEVAQUIN PREMIX IV 750 MG 750 MG/150 ML BAG IV SCH (09:38)
[2018-06-17] MEDS ORDERED: CONSULT PHARMACY - ANTIBIOTIC XX SCH (12:00)
[2018-06-17] MEDS: TUSSIONEX PENNKINETIC SUSP PO PRN (12:32)
--- NOTE | 2018-06-17 13:53 | PCM.PROG ---
Progress Note - Progress Note for Day of Date of Exam: 06/17/18 - Subjective Subjective: 63 WF ER ADMISSION WITH FEVER, N/V/D AND PNEUMONIA. PT HAS CHRONIC LOOSE STOOL FOR NEARLY ONE YEAR. PT HAS BEEN UNDER THE CARE OF DR DE SANTIAGO AND HAD BOTH EGD AND COLONOSCOPY. PT STOOL STUDIES NEGATIVE AT THIS TIME. PT IS CURRENTLY ON IV ATBX FOR PENUMONIA. PT DIET ADVANCED TO BLAND WITH CONTINUED LOOSE BM'S. PT CXR IMPROVING, CONTINUE WITH CHRONIC RESPIRATORY TREATMENT. HGB STABLE AT 10.5. PHYISCAL THERAPY CONSULTED, DISCUSSED PLANS FOR DISCHARGE. - Past Medical Family Social History Past Med/Fam/Surg Hx: No changes since H&P Allergies: Allergies ketorolac [From Toradol] Allergy (Verified 06/12/18 03:13) nalbuphine [From Nubain] Allergy (Verified 06/12/18 03:13) Penicillins Allergy (Verified 06/12/18 03:13) Sulfa (Sulfonamide Antibiotics) [SULFA] Allergy (Verified 06/12/18 03:13) BETA BLOCKERS Allergy (Uncoded 06/12/18 03:13) - Review of Systems ROS: No change since H&P - Vital Signs and I&O's Vital Signs: Temperature 97.8 F Pulse Rate [Left] 104 Pulse Rate 107 Respiratory Rate 20 Blood Pressure [Left Arm] 120/60 Blood Pressure [Right Arm] 115/57 Blood Pressure 208/94 O2 Sat by Pulse Oximetry 96 Intake and Output: Intake & Output 06/15/18 06/16/18 06/17/18 06/18/18 11:59 11:59 11:59 11:59 Intake Total 2900 / 2900 960 / 960 Output Total 4000 / 4000 3525 / 3525 Balance -1100 / -1100 -2565 / -2565 - Physical Exam Oriented: Normal Eyes: Normal Ear: Normal Nose: Normal Throat: Normal Respiratory: Diminished Cardiovascular: Normal, Edema : Normal Auscultation: Bowel Sounds: Decreased Tenderness: Epigastric Skin: Decreased Turgur, Wound (STAGE 2 ( RUPTURE BLISTER) SACRUM), Other (THIN SHINEY, UPPER POSTERIOR ARMS AND THIGHS, LOWER BACK AND LATERAL 3RD SPACE) Musculoskeletal: Back:Thoracic, Instability, Crepitance Psychiatric: Anxiety Affect: Anxious Speech Pattern: Clear, Appropriate - Laboratory and Diagnostics Result Diagrams: 06/17/18 05:23 06/17/18 05:23 Labs: 06/12/18 04:15 Blood Blood Culture - Final Staphylococcus Epidermidis 06/14/18 10:15 Blood Blood Culture - Preliminary 06/14/18 10:10 Blood Blood Culture - Preliminary 06/12/18 09:50 Urine,Clean Catch Urine Culture - Final 06/12/18 14:00 Stool Stool Culture - Final 06/12/18 14:00 Stool - Final Laboratory WBC 9.6 X10^3/uL (3.6-10.0) 06/17/18 05:23 RBC 3.49 X10^6/uL (3.5-5.4) L 06/17/18 05:23 Hgb 10.5 g/dL (12.0-16.0) L 06/17/18 05:23 Hct 31.3 % (36.0-47.0) L 06/17/18 05:23 MCV 89.7 fL (80.0-100.0) 06/17/18 05:23 MCH 30.1 pg (27.0-34.0) 06/17/18 05:23 MCHC 33.6 g/dL (33.0-35.0) 06/17/18 05:23 RDW 22.0 % (11.6-16.5) H 06/17/18 05:23 Plt Count 290 X10^3/uL (150.0-450.0) 06/17/18 05:23 Plt Count Comment Adequate (ADEQUATE) 06/17/18 05:23 MPV 9.0 fL (7.4-11.0) 06/17/18 05:23 Neut % (Auto) 71.7 % (42.0-75.0) 06/17/18 05:23 Lymph % (Auto) 12.1 % (21.0-51.0) L 06/17/18 05:23 [place] % (Auto) 12.4 % (0.0-13.0) 06/17/18 05:23 Eos % (Auto) 3.2 % (0.9-2.9) H 06/17/18 05:23 Baso % (Auto) 0.6 % (0.2-1.0) 06/17/18 05:23 Neut # (Auto) 6.9 x10^3/uL (2.2-4.8) H 06/17/18 05:23 Lymph # (Auto) 1.2 X10^3/uL (1.3-2.9) L 06/17/18 05:23 [place] # (Auto) 1.2 x10^3/uL (0.3-0.8) H 06/17/18 05:23 Eos # (Auto) 0.3 x10^3/uL (0.0-0.2) H 06/17/18 05:23 Baso # (Auto) 0.1 X10^3/uL (0.0-0.1) 06/17/18 05:23 Absolute Nucleated RBC 0.0 /100WBC 06/17/18 05:23 Total Counted 100 06/13/18 05:40 Neutrophils % (Manual) 78 % (39-76) H 06/13/18 05:40 Lymphocytes % (Manual) 15 % (13-43) 06/13/18 05:40 Monocytes % (Manual) 7 % (4-9) 06/13/18 05:40 Plt Morphology Comment Normal (NORMAL) 06/17/18 05:23 RBC Morphology Abnormal (NORMAL) A 06/17/18 05:23 Hypochromasia Slight A 06/13/18 05:40 Anisocytosis 1+ A 06/17/18 05:23 Sodium 138 mmol/L (136-145) 06/17/18 05:23 Corrected Sodium TNP 06/17/18 05:23 Potassium 3.9 mmol/L (3.5-5.1) 06/17/18 05:23 Chloride 100 mmol/L (98-107) 06/17/18 05:23 Carbon Dioxide 34.8 mmol/L (21-32) H 06/17/18 05:23 BUN 7 mg/dL (7-18) 06/17/18 05:23 Creatinine 0.93 mg/dL (0.55-1.02) 06/17/18 05:23 Est GFR (MDRD) Af Amer > 60 (>60) 06/17/18 05:23 Est GFR (MDRD) Non-Af > 60 (>60) 06/17/18 05:23 Glucose 77 mg/dL (65-99) 06/17/18 05:23 Lactic Acid 1.0 mmol/L (0.4-2.0) 06/12/18 04:15 Calcium 8.1 mg/dL (8.5-10.1) L 06/17/18 05:23 Corrected Calcium 9.5 mg/dL (8.5-10.1) 06/17/18 05:23 Iron 10 ug/dL (50-175) L 06/13/18 05:40 TIBC 127 ug/dL (250-450) L 06/13/18 05:40 Ferritin 625 ng/mL (8-252) H 06/13/18 05:40 Total Bilirubin 0.70 mg/dL (0.2-1.0) 06/17/18 05:23 AST 27 Units/L (15-37) 06/17/18 05:23 ALT 32 Units/L (12-78) 06/17/18 05:23 Alkaline Phosphatase 194 Units/L (46-116) H 06/17/18 05:23 Total Protein 7.1 g/dL (6.4-8.2) 06/17/18 05:23 Albumin 2.3 g/dL (3.4-5.0) L 06/17/18 05:23 Globulin 4.8 g/dL (2.5-4.5) H 06/17/18 05:23 Albumin/Globulin Ratio 0.5 Ratio (1.1-2.1) L 06/17/18 05:23 Specimen Type Catherized urine 06/15/18 15:41 Urine Color Yellow (YELLOW) 06/15/18 15:41 Urine Appearance Clear (CLEAR) 06/15/18 15:41 Urine pH 7.0 (5.0 - 8.0) 06/15/18 15:41 Ur Specific [place] 1.005 (1.000-1.030) 06/15/18 15:41 Urine Protein Negative (NEGATIVE) 06/15/18 15:41 Urine Glucose (UA) Negative (NEGATIVE) 06/15/18 15:41 Urine Ketones Negative (NEGATIVE) 06/15/18 15:41 Urine Occult Blood 1+ (NEGATIVE) 06/15/18 15:41 Urine Nitrite Negative (NEGATIVE) 06/15/18 15:41 Urine Bilirubin Negative (NEGATIVE) 06/15/18 15:41 Urine Urobilinogen Normal (NORMAL) 06/15/18 15:41 Ur Leukocyte Esterase Negative (NEGATIVE) 06/15/18 15:41 Urine RBC 0-2 /HPF (NONE SEEN) 06/15/18 15:41 Urine WBC None seen /HPF (NONE SEEN) 06/15/18 15:41 Ur Squamous Epith Cells Few /HPF (NEGATIVE) 06/15/18 15:41 Amorphous Sediment 1+ /HPF (NEGATIVE) 06/15/18 15:41 Urine Bacteria Negative /HPF (NEGATIVE) 06/15/18 15:41 Ur Culture Indicated? No/not indicated 06/15/18 15:41 Stool Description 3g,unformed,brown 06/14/18 07:20 Stl Occult Blood (IFOB) Negative (NEGATIVE) 06/14/18 07:20 Stool for White Cells Negative (NEGATIVE) 06/12/18 14:00 Stl C. diff Tox B Gene Negative (NEGATIVE) 06/12/18 14:00 Stl C. diff [id number] Negative (NEGATIVE) 06/12/18 14:00 Blood Type O POSITIVE 06/13/18 14:03 Antibody Screen Negative 06/13/18 14:03 Crossmatch See Detail 06/13/18 14:03 - Plan (1) Pneumonia Status: Acute Plan: PNEUMONIA PROTOCOL. IV ATBX, RESP CARE, SUPPLEMENTAL O2. ADMISSION CULTURES BLOOD AND SPUTUM COLLECTED (2) Pancreatic abnormality Status: Acute (3) Adult failure to thrive Status: Acute (4) GERD with esophagitis Status: Acute (5) Fever Status: Resolved (6) Anemia Status: Acute Plan: TYPE AND SCREEN, SP TRANSFUSION PRBC HGB 10.5 THIS AM. OCCULT STOOL NEGATIVE. MONITOR H& H (7) Chronic kidney disease (CKD) Status: Chronic Qualifiers: Chronic kidney disease stage: stage 3 (moderate) Qualified Code(s): N18.3 - Chronic kidney disease, stage 3 (moderate) (8) Hypertension Status: Chronic (9) COPD (chronic obstructive pulmonary disease) Status: Acute Qualifiers: COPD type: COPD with acute exacerbation Qualified Code(s): J44.1 - Chronic obstructive pulmonary disease with (acute) exacerbation (10) CHF (congestive heart failure) Status: Chronic
[2018-06-17] MEDS: PERCOCET TAB 5/325 MG PO PRN ×2 (15:41→21:39)
[2018-06-17 18:21] LABS: HEMATOCRIT 30.8 % (36.0-47.0); HEMOGLOBIN 10.2 g/dL (12.0-16.0)
[2018-06-17] MEDS: XANAX PO PRN (20:27)
[2018-06-18] MEDS: DUONEB 0.5 MG/3 MG NEB SCH ×4 (01:00→12:00)
[2018-06-18] MEDS ORDERED: NS 1/2 1000 ML IV 1,000 ML IV ONE (05:08)
[2018-06-18 05:12] LABS: BASOPHILS # (AUTO) 0.1 X10^3/uL (0.0-0.1); BASOPHILS % (AUTO) 0.8 % (0.2-1.0); EOSINOPHILS # (AUTO) 0.2 x10^3/uL (0.0-0.2); EOSINOPHILS % (AUTO) 2.4 % (0.9-2.9); HEMATOCRIT 28.7 % (36.0-47.0); HEMOGLOBIN 9.7 g/dL (12.0-16.0); LYMPHOCYTES # (AUTO) 1.3 X10^3/uL (1.3-2.9); LYMPHOCYTES % (AUTO) 12.5 % (21.0-51.0); MEAN CORPUSCULAR HEMOGLOBIN 30.1 pg (27.0-34.0); MEAN CORPUSCULAR HGB CONC 33.7 g/dL (33.0-35.0); MEAN CORPUSCULAR VOLUME 89.2 fL (80.0-100.0); MEAN PLATELET VOLUME 8.3 fL (7.4-11.0); MONOCYTES # (AUTO) 1.3 x10^3/uL (0.3-0.8); MONOCYTES % (AUTO) 12.5 % (0.0-13.0); NEUTROPHILS # (AUTO) 7.4 x10^3/uL (2.2-4.8); NEUTROPHILS % (AUTO) 71.8 % (42.0-75.0); PLATELET COUNT 292 X10^3/uL (150.0-450.0); RED BLOOD COUNT 3.22 X10^6/uL (3.5-5.4); RED CELL DISTRIBUTION WIDTH 21.3 % (11.6-16.5); WHITE BLOOD COUNT 10.3 X10^3/uL (3.6-10.0)
[2018-06-18 05:26] LABS: ALANINE AMINOTRANSFERASE 26 Units/L (12-78); ALBUMIN 2.1 g/dL (3.4-5.0); ALKALINE PHOSPHATASE 168 Units/L (46-116); ASPARTATE AMINO TRANSFERASE 26 Units/L (15-37); BLOOD UREA NITROGEN 9 mg/dL (7-18); CALCIUM 8.2 mg/dL (8.5-10.1); CARBON DIOXIDE 33.2 mmol/L (21-32); CHLORIDE 104 mmol/L (98-107); COR CA(FOR HYPOALB) 9.7 mg/dL (8.5-10.1); CREATININE 1.13 mg/dL (0.55-1.02); SODIUM 140 mmol/L (136-145); TOTAL PROTEIN 6.5 g/dL (6.4-8.2); eGFR NON BLACK RACES 51 (>60)
[2018-06-18 05:31] LABS: ANISOCYTOSIS 1+; PLATELET MORPHOLOGY COMMENT NORMAL (NORMAL)
[2018-06-18] MEDS: CARAFATE PO SCH ×2 (05:54→12:51)
[2018-06-18] MEDS: NEURONTIN TAB 600 MG PO SCH ×2 (05:54→14:01)
[2018-06-18] MEDS: REGLAN INJ 10 MG VIAL IVP SCH ×2 (05:54→12:52)
[2018-06-18] MEDS: NS 1/2 1000 ML IV 1,000 ML IV SCH (05:55)
[2018-06-18] MEDS: WELCHOL PO SCH (06:01)
[2018-06-18] MEDS: PERCOCET TAB 5/325 MG PO PRN (08:08)
[2018-06-18] MEDS: LEVAQUIN PREMIX IV 750 MG 750 MG/150 ML BAG IV SCH (08:10)
[2018-06-18] MEDS: ZOFRAN INJ 4 MG VIAL IVP PRN ×2 (08:10→13:45)
[2018-06-18] MEDS: TUSSIONEX PENNKINETIC SUSP PO PRN (08:10)
[2018-06-18] MEDS: TYLENOL 325 MG TAB PO PRN (08:21)
[2018-06-18] MEDS ORDERED: DEMEROL INJ IVP ONE (09:13)
[2018-06-18] MEDS ORDERED: DEMEROL INJ ONE (09:27)
[2018-06-18] MEDS: VIBRAMYCIN 100 MG in D5W 250 ML IV 250 ML IV SCH (09:39)
[2018-06-18] MEDS: LOVENOX INJ 40 MG SYR SC SCH (09:41)
[2018-06-18] MEDS ORDERED: ZYVOX TAB 600 MG PO SCH (10:00)
[2018-06-18] MEDS: ALDACTONE TAB 25 MG PO SCH (12:50)
[2018-06-18] MEDS: CARDIZEM SR 120 MG PO SCH (12:50)
[2018-06-18] MEDS: MICRO K EXTEN CAP 10 MEQ PO SCH (12:50)
[2018-06-18] MEDS: ROBITUSSIN DM PO SCH ×2 (12:51→13:07)
[2018-06-18] MEDS: SINGULAIR TAB 10 MG PO SCH (12:51)
[2018-06-18] MEDS: LASIX PO SCH (12:51)
[2018-06-18] MEDS: REQUIP PO SCH (12:51)
[2018-06-18 13:59] VITALS: BP 119/56
== END 2018-06-18 14:20 | disposition home health service (06) | DRG 194 ==
LOC: ER 03:05 → MED/SURG 03:05 → OBSVTOIN 07:07 → MED/SURG 07:26
PROVIDERS: ADMIT Internal Medicine; ATTEND Internal Medicine
DX: Z74.01 Bed confinement status; K90.49 Malabsorption due to intolerance, not elsewhere classified; I12.9 Hypertensive chronic kidney disease with stage 1 through stage 4 chronic kidney disease, or unspecified chronic kidney disease; I25.10 Atherosclerotic heart disease of native coronary artery without angina pectoris; R97.0 Elevated carcinoembryonic antigen [CEA]; J44.1 Chronic obstructive pulmonary disease with (acute) exacerbation; D64.89 Other specified anemias; R62.7 Adult failure to thrive; R10.84 Generalized abdominal pain; R06.02 Shortness of breath; R26.89 Other abnormalities of gait and mobility; D72.828 Other elevated white blood cell count; R19.7 Diarrhea, unspecified; F41.8 Other specified anxiety disorders; R50.9 Fever, unspecified; R51 Headache; R70.0 Elevated erythrocyte sedimentation rate; J18.8 Other pneumonia, unspecified organism; K21.0 Gastro-esophageal reflux disease with esophagitis
CPT/HCPCS: 36415; 36430; 71010; 71045; 74000; 74018; 74176; 80053; 81001; 81003; 82270; 82378; 82728; 83540; 83550; 83605; 83630; 85014; 85018; 85025; 86301; 86316; 86850; 86900; 86901; 86922; 87040; 87045; 87077; 87086; 87186; 87427; 87449; 87493; 87899; 94640; 94760; 96365; 96367; 96374; 96375; 97163; 97166; 97535; 99231; 99282; 99284; A4222; P9016; G0378; J0131; J1200; J1642; J1650; J1756; J1956; J2175; J2405; J2550; J2765; J3490; J7050; J7060; J7620

== ENCOUNTER 2018-10-01 17:23 | Observation (INO) ==
[2018-10-01] MEDS ORDERED: SOLU-Medrol 40 MG VIAL IVP ONE (17:50)
[2018-10-01] MEDS ORDERED: DUONEB 0.5 MG/3 MG NEB ONE (17:50)
[2018-10-01] MEDS ORDERED: SOLU-Medrol 40 MG VIAL ONE (17:57)
--- NOTE | 2018-10-01 18:10 | DR.SOBA ---
HPI Time Seen Time Seen by Provider: 10/01/18 17:39 Primary Care Physician Primary Care Physician: JASON CESAR Complaints Chief Complaint Doctors Comments: She presents with SOB. She was seen here for same last week. She was treated in the ED and she responded, thus she was able to be d/c home. She is coughing and wheezing also. Chief Complaint:: PT. C/O SHORTNESS OF BREATH. PT. STATES SHE BEGAN WHEEZING AND FEELING SHORT OF BREATH ON SATURDAY WHEN SHE WENT TO SEE JASON CESAR IN THE OFFICE. PT. STATES "I THINK I'VE GOT A PNEUMONIA." Source History Provided: Patient and EMS Mode of Arrival Mode of Arrival: EMS Timing Onset of Chief Complaint: 09/25/18 PMH PMH Past Medical History: Yes Past Medical History: Anxiety, Arthritis, Asthma, CHF, COPD, Coronary Artery Disease, GERD and Hypertension Past Surgical History: Yes Surgical History: Appendectomy, Cholecystectomy and Tonsillectomy Family History History of Family Medical Conditions: Yes Family Medical History: Diabetes Mellitus and Hypertension Social History Does patient currently use any type of tobacco product: No Have you used tobacco products in the last 12 months: No Type of Tobacco Use: None Does any household member use tobacco: No Alcohol Use: None Do you use any recreational Drugs:: No Lives With: Significant Other Lives Where: Home infectious screening Have you had fever, night sweats or hemotysis?: No Have you traveled outside the country in the last 6 months?: No Isolation: Standard ROS Review of Systems Constitutional: No Symptoms Reported Eyes: No Symptoms Reported ENTM: No Symptoms Reported Respiratoy: Non-Productive Cough, Short of Breath and Wheezing Cardiovascular: No Symptoms Reported Gastrointestinal/Abdominal: No Symptoms Reported Genitourinary: No Symptoms Reported Neurological: No Symptoms Reported Musculoskeletal: No Symptoms Reported Integumentary: No Symptoms Reported Hematologic/Lymphatic: No Symptoms Reported Endocrine: No Symptoms Reported Psychiatric: No Symptoms Reported PE Vital Signs Vitals: Temperature 99.5 F Pulse Rate [Left Brachial] 88 Pulse Rate 95 Respiratory Rate 18 Blood Pressure [Left Arm] 126/56 Blood Pressure [Right Arm] 126/60 Blood Pressure 123/62 O2 Sat by Pulse Oximetry 93 General Limitations: No Limitations General Appearance: Alert and In No Apparent Distress Head Head Exam: Normal Inspection Eyes Eye exam: Normal Appearance, PERRL and EOMI ENT ENT Exam: Normal Exam, Normal Oropharynx and Mucous Membranes Moist Neck Neck Exam: Normal Inspection, Full ROM and Trachea Midline Chest Chest Inspection: Normal Inspection and Symmetric Chest Wall Rise Respiratory Respiratory Exam: Other (distant BS b/l) Respiratory Exam: Bilateral: Wheezing Cardiovascular Cardiovascular Exam: Regular Rate, Normal Rhythm, Normal Heart Sounds, +S1 and +S2 Abdominal Exam Abdominal Exam: Normal Inspection, Normal Bowel Sounds, Soft and Other (Obese) Extremities Extremities Exam: Normal Inspection Back Back Exam: Normal Inspection Neurologic Neurological Exam: Alert Psychiatric Psychiatric Exam: Normal Affect and Normal Mood Skin Skin Exam: Warm, Dry, Intact and Normal Color COURSE Reevaluation 1st: Improved Education/Counseling Education/Counseling: Patient, Family, Education and Counseling Educated On: Treatment, Diagnosis, Prognosis and Needs for Follow Up ROR Labs Reviewed Laboratory Results Reviewed?: Yes Result Diagrams: 10/01/18 18:02 10/01/18 18:02 Laboratory: WBC 15.1 X10^3/uL (3.6-10.0) H 10/01/18 18:02 RBC 3.72 X10^6/uL (3.5-5.4) 10/01/18 18:02 Hgb 11.7 g/dL (12.0-16.0) L 10/01/18 18:02 Hct 35.7 % (36.0-47.0) L 10/01/18 18:02 MCV 95.9 fL (80.0-100.0) 10/01/18 18:02 MCH 31.5 pg (27.0-34.0) 10/01/18 18:02 MCHC 32.8 g/dL (33.0-35.0) L 10/01/18 18:02 RDW 15.1 % (11.6-16.5) 10/01/18 18:02 Plt Count 311 X10^3/uL (150.0-450.0) 10/01/18 18:02 Plt Count Comment Adequate (ADEQUATE) 10/01/18 18:02 MPV 7.7 fL (7.4-11.0) 10/01/18 18:02 Neut % (Auto) 71.6 % (42.0-75.0) 10/01/18 18:02 Lymph % (Auto) 17.9 % (21.0-51.0) L 10/01/18 18:02 [place] % (Auto) 8.0 % (0.0-13.0) 10/01/18 18:02 Eos % (Auto) 2.0 % (0.9-2.9) 10/01/18 18:02 Baso % (Auto) 0.5 % (0.2-1.0) 10/01/18 18:02 Neut # (Auto) 10.8 x10^3/uL (2.2-4.8) H 10/01/18 18:02 Lymph # (Auto) 2.7 X10^3/uL (1.3-2.9) 10/01/18 18:02 [place] # (Auto) 1.2 x10^3/uL (0.3-0.8) H 10/01/18 18:02 Eos # (Auto) 0.3 x10^3/uL (0.0-0.2) H 10/01/18 18:02 Baso # (Auto) 0.1 X10^3/uL (0.0-0.1) 10/01/18 18:02 Absolute Nucleated RBC 0.1 /100WBC 10/01/18 18:02 Total Counted 100 10/01/18 18:02 Neutrophils % (Manual) 69 % (39-76) 10/01/18 18:02 Lymphocytes % (Manual) 17 % (13-43) 10/01/18 18:02 Monocytes % (Manual) 9 % (4-9) 10/01/18 18:02 Eosinophils % (Manual) 2 % (0-6) 10/01/18 18:02 Atypical Lymphocytes 3 10/01/18 18:02 Plt Morphology Comment Normal (NORMAL) 10/01/18 18:02 RBC Morphology Normal (NORMAL) 10/01/18 18:02 Sample Site Rr 10/01/18 19:16 ABG pH 7.430 (7.35-7.45) 10/01/18 19:16 ABG pCO2 64.0 mmHg (35.0-45.0) H* 10/01/18 19:16 ABG pO2 68.0 mmHg (80.0-100.0) L 10/01/18 19:16 ABG HCO3 42.5 mmol/L (22-26) H* 10/01/18 19:16 ABG O2 Saturation 94.0 % (90-100) 10/01/18 19:16 ABG Base Excess 15.3 mmol/L (-2.0-2.0) H 10/01/18 19:16 Sameer Test Pos 10/01/18 19:16 A-a Gradient 52.0 mmHg 10/01/18 19:16 FiO2 28.0 10/01/18 19:16 Blood Gas Comments Fermín well gmb 10/01/18 19:16 Sodium 136 mmol/L (136-145) 10/01/18 18:02 Corrected Sodium TNP 10/01/18 18:02 Potassium 4.6 mmol/L (3.5-5.1) 10/01/18 18:02 Chloride 96 mmol/L (98-107) L 10/01/18 18:02 Carbon Dioxide 40.2 mmol/L (21-32) H* 10/01/18 18:02 BUN 36 mg/dL (7-18) H 10/01/18 18:02 Creatinine 1.22 mg/dL (0.55-1.02) H 10/01/18 18:02 Est GFR (MDRD) Af Amer 57 (>60) L 10/01/18 18:02 Est GFR (MDRD) Non-Af 47 (>60) L 10/01/18 18:02 Glucose 98 mg/dL (65-99) 10/01/18 18:02 Calcium 8.5 mg/dL (8.5-10.1) 10/01/18 18:02 Corrected Calcium 9.1 mg/dL (8.5-10.1) 10/01/18 18:02 Total Bilirubin 0.40 mg/dL (0.2-1.0) 10/01/18 18:02 AST 165 Units/L (15-37) H 10/01/18 18:02 ALT 244 Units/L (12-78) H 10/01/18 18:02 Alkaline Phosphatase 175 Units/L (46-116) H 10/01/18 18:02 Total Protein 7.5 g/dL (6.4-8.2) 10/01/18 18:02 Albumin 3.3 g/dL (3.4-5.0) L 10/01/18 18:02 Globulin 4.2 g/dL (2.5-4.5) 10/01/18 18:02 Albumin/Globulin Ratio 0.8 Ratio (1.1-2.1) L 10/01/18 18:02 XRAY XRAY Interpreted by: Self XRAY Findings: mild cardiomegaly. no gross infiltrates noted. EKG Rate: 93 [place]: Normal Rhythm: NSR Block: None Hypertrophy: None ST: Normal Diagnosis Discharge Problem: COPD exacerbation
[2018-10-01 18:12] LABS: BASOPHILS # (AUTO) 0.1 X10^3/uL (0.0-0.1); BASOPHILS % (AUTO) 0.5 % (0.2-1.0); EOSINOPHILS # (AUTO) 0.3 x10^3/uL (0.0-0.2); HEMATOCRIT 35.7 % (36.0-47.0); HEMOGLOBIN 11.7 g/dL (12.0-16.0); LYMPHOCYTES # (AUTO) 2.7 X10^3/uL (1.3-2.9); LYMPHOCYTES % (AUTO) 17.9 % (21.0-51.0); MEAN CORPUSCULAR HEMOGLOBIN 31.5 pg (27.0-34.0); MEAN CORPUSCULAR HGB CONC 32.8 g/dL (33.0-35.0); MEAN CORPUSCULAR VOLUME 95.9 fL (80.0-100.0); MEAN PLATELET VOLUME 7.7 fL (7.4-11.0); MONOCYTES # (AUTO) 1.2 x10^3/uL (0.3-0.8); NEUTROPHILS # (AUTO) 10.8 x10^3/uL (2.2-4.8); NEUTROPHILS % (AUTO) 71.6 % (42.0-75.0); PLATELET COUNT 311 X10^3/uL (150.0-450.0); RED BLOOD COUNT 3.72 X10^6/uL (3.5-5.4); RED CELL DISTRIBUTION WIDTH 15.1 % (11.6-16.5); WHITE BLOOD COUNT 15.1 X10^3/uL (3.6-10.0)
[2018-10-01 18:21] LABS: BLOOD UREA NITROGEN 36 mg/dL (7-18); CALCIUM 8.5 mg/dL (8.5-10.1); CHLORIDE 96 mmol/L (98-107); CREATININE 1.22 mg/dL (0.55-1.02); SODIUM 136 mmol/L (136-145); eGFR NON BLACK RACES 47 (>60)
[2018-10-01 18:25] LABS: ALANINE AMINOTRANSFERASE 244 Units/L (12-78); ALBUMIN 3.3 g/dL (3.4-5.0); ALKALINE PHOSPHATASE 175 Units/L (46-116); ASPARTATE AMINO TRANSFERASE 165 Units/L (15-37); COR CA(FOR HYPOALB) 9.1 mg/dL (8.5-10.1); TOTAL PROTEIN 7.5 g/dL (6.4-8.2)
[2018-10-01 18:29] LABS: CARBON DIOXIDE 40.2 mmol/L (21-32)
[2018-10-01 18:31] LABS: PLATELET MORPHOLOGY COMMENT NORMAL (NORMAL)
[2018-10-01] MEDS ORDERED: DUONEB 0.5 MG/3 MG ONE ×2 (18:51→20:00)
[2018-10-01 19:21] LABS: ABG BASE EXCESS 15.3 mmol/L (-2.0-2.0)
[2018-10-01 19:22] LABS: ABG HCO3 42.5 mmol/L (22-26)
[2018-10-01 19:23] LABS: ABG ALLEN TEST POS
--- NOTE | 2018-10-01 19:47 | RAD ---
HISTORY: 63-year-old female with shortness of breath. Study: Frontal view of the chest. Comparison: Chest radiograph 09/26/2018 Findings: Right chest chemo port is stable. The trachea is midline. The cardiac silhouette is stably enlarged with low lung volumes and continued prominence perihilar lung markings and interstitium. The lungs are clear without focal consolidation, effusion or pneumothorax. Soft tissues are unremarkable. Osseous structures are unremarkable. IMPRESSION: 1. Chronic cardiomegaly and findings suggesting COPD. Reported By:
[2018-10-01] MEDS ORDERED: LEVAQUIN PREMIX IV 750 MG 750 MG/150 ML BAG IV SCH (21:00)
[2018-10-01] MEDS ORDERED: PATIENT'S HOME MEDICATION (Oxycodone-Acetaminophen [Percocet] 1 TAB) PO PRN (21:41)
[2018-10-01] MEDS ORDERED: PATIENT'S HOME MEDICATION (Levocetirizine [Levocetirizine] 1 TAB) PO SCH (21:41)
[2018-10-01] MEDS ORDERED: LASIX PO SCH (21:41)
[2018-10-01] MEDS ORDERED: DUONEB 0.5 MG/3 MG IN PRN (21:41)
[2018-10-01] MEDS ORDERED: ZOFRAN TAB 4 MG PO PRN (21:41)
[2018-10-01 21:45] VITALS: BMI 39.8
[2018-10-01] MEDS ORDERED: NEURONTIN TAB 600 MG PO SCH (22:00)
[2018-10-01] MEDS: NORCO 5/325 MG TAB PO PRN (22:19)
[2018-10-01] MEDS: NEURONTIN TAB 600 MG PO SCH (22:21)
[2018-10-01] MEDS: AMBIEN PO PRN (22:29)
[2018-10-02] MEDS: DUONEB 0.5 MG/3 MG NEB SCH ×4 (00:50→17:55)
[2018-10-02] MEDS: SOLU-Medrol 40 MG VIAL IVP SCH ×3 (04:17→21:48)
[2018-10-02] MEDS: LASIX PO SCH ×2 (06:12→17:26)
[2018-10-02] MEDS: WELCHOL PO SCH ×3 (06:12→17:32)
[2018-10-02 06:29] LABS: BASOPHILS % (AUTO) 0.2 % (0.2-1.0); EOSINOPHILS % (AUTO) 0.1 % (0.9-2.9); HEMATOCRIT 36.3 % (36.0-47.0); LYMPHOCYTES # (AUTO) 0.8 X10^3/uL (1.3-2.9); LYMPHOCYTES % (AUTO) 8.1 % (21.0-51.0); MEAN CORPUSCULAR HEMOGLOBIN 31.8 pg (27.0-34.0); MEAN CORPUSCULAR HGB CONC 33.2 g/dL (33.0-35.0); MEAN CORPUSCULAR VOLUME 95.7 fL (80.0-100.0); MONOCYTES # (AUTO) 0.2 x10^3/uL (0.3-0.8); MONOCYTES % (AUTO) 2.4 % (0.0-13.0); NEUTROPHILS # (AUTO) 8.4 x10^3/uL (2.2-4.8); NEUTROPHILS % (AUTO) 89.2 % (42.0-75.0); PLATELET COUNT 272 X10^3/uL (150.0-450.0); RED BLOOD COUNT 3.79 X10^6/uL (3.5-5.4); RED CELL DISTRIBUTION WIDTH 15.1 % (11.6-16.5); WHITE BLOOD COUNT 9.4 X10^3/uL (3.6-10.0)
[2018-10-02 06:33] LABS: ABG BASE EXCESS 13.6 mmol/L (-2.0-2.0)
[2018-10-02 06:34] LABS: ABG ALLEN TEST POS; ABG HCO3 40.5 mmol/L (22-26)
[2018-10-02 06:47] LABS: ALBUMIN 3.3 g/dL (3.4-5.0); CALCIUM 8.8 mg/dL (8.5-10.1); CARBON DIOXIDE 37.1 mmol/L (21-32); COR CA(FOR HYPOALB) 9.4 mg/dL (8.5-10.1); CREATININE 1.48 mg/dL (0.55-1.02); TOTAL PROTEIN 7.6 g/dL (6.4-8.2)
[2018-10-02 07:00] LABS: BAND NEUTROPHILS % 2 % (0-10)
[2018-10-02 07:01] LABS: PLATELET MORPHOLOGY COMMENT NORMAL (NORMAL)
[2018-10-02] MEDS: LEVAQUIN PREMIX IV 500 MG 500 MG/100 ML BAG IV SCH (09:03)
[2018-10-02] MEDS: NEURONTIN TAB 600 MG PO SCH ×2 (09:03→21:48)
[2018-10-02] MEDS: REQUIP PO SCH (09:03)
[2018-10-02] MEDS: PROTONIX TAB 40 MG PO SCH (09:03)
[2018-10-02] MEDS: ZyrTEC TAB 10 MG PO SCH (09:03)
[2018-10-02] MEDS: SINGULAIR TAB 10 MG PO SCH (09:04)
[2018-10-02 09:33] LABS: CKMB % 3.7 % (<4); CREATINE KINASE 27 Units/L (26-192); CREATINE KINASE MB < 1.0 ng/mL (0-4.0); TROPONIN I < 0.02 ng/mL (0-1.5)
[2018-10-02] MEDS: PULMICORT NEB TX 0.5 MG NEB SCH ×2 (09:35→20:30)
[2018-10-02] MEDS: DILTIAZEM HCL PO SCH (10:35)
[2018-10-02] MEDS: LOVENOX INJ 30 MG SYR SC SCH (10:38)
[2018-10-02] MEDS ORDERED: NS 1/2 1000 ML IV 1,000 ML IV ONE (15:48)
[2018-10-02] MEDS: NS 1/2 1000 ML IV 1,000 ML IV SCH (15:57)
[2018-10-02] MEDS: NORCO 5/325 MG TAB PO PRN (17:23)
[2018-10-02] MEDS: AMBIEN PO PRN (21:48)
[2018-10-02] MEDS: XANAX PO PRN (21:48)
[2018-10-03] MEDS: NORCO 5/325 MG TAB PO PRN ×2 (01:00→06:20)
[2018-10-03] MEDS: DUONEB 0.5 MG/3 MG NEB SCH ×3 (01:02→12:39)
[2018-10-03] MEDS: SOLU-Medrol 40 MG VIAL IVP SCH (05:16)
[2018-10-03] MEDS: NS 1/2 1000 ML IV 1,000 ML IV SCH (05:16)
[2018-10-03 05:27] LABS: BASOPHILS % (AUTO) 0.2 % (0.2-1.0); EOSINOPHILS % (AUTO) 0.1 % (0.9-2.9); HEMATOCRIT 36.8 % (36.0-47.0); LYMPHOCYTES # (AUTO) 0.8 X10^3/uL (1.3-2.9); LYMPHOCYTES % (AUTO) 6.6 % (21.0-51.0); MEAN CORPUSCULAR HEMOGLOBIN 31.3 pg (27.0-34.0); MEAN CORPUSCULAR HGB CONC 32.8 g/dL (33.0-35.0); MEAN CORPUSCULAR VOLUME 95.5 fL (80.0-100.0); MEAN PLATELET VOLUME 8.7 fL (7.4-11.0); MONOCYTES # (AUTO) 0.5 x10^3/uL (0.3-0.8); MONOCYTES % (AUTO) 4.6 % (0.0-13.0); NEUTROPHILS # (AUTO) 10.5 x10^3/uL (2.2-4.8); NEUTROPHILS % (AUTO) 88.5 % (42.0-75.0); PLATELET COUNT 296 X10^3/uL (150.0-450.0); RED BLOOD COUNT 3.85 X10^6/uL (3.5-5.4); RED CELL DISTRIBUTION WIDTH 15.2 % (11.6-16.5); WHITE BLOOD COUNT 11.8 X10^3/uL (3.6-10.0)
[2018-10-03 05:40] LABS: ALBUMIN 3.3 g/dL (3.4-5.0); CALCIUM 9.1 mg/dL (8.5-10.1); CARBON DIOXIDE 34.9 mmol/L (21-32); COR CA(FOR HYPOALB) 9.7 mg/dL (8.5-10.1); CREATININE 1.45 mg/dL (0.55-1.02); TOTAL PROTEIN 7.6 g/dL (6.4-8.2)
[2018-10-03] MEDS: WELCHOL PO SCH (06:01)
[2018-10-03] MEDS: LASIX PO SCH (06:01)
[2018-10-03 08:37] VITALS: BP 178/86
[2018-10-03] MEDS: LOVENOX INJ 30 MG SYR SC SCH (08:37)
[2018-10-03] MEDS: SINGULAIR TAB 10 MG PO SCH (08:38)
[2018-10-03] MEDS: NEURONTIN TAB 600 MG PO SCH (08:38)
[2018-10-03] MEDS: REQUIP PO SCH (08:38)
[2018-10-03] MEDS: PROTONIX TAB 40 MG PO SCH (08:39)
[2018-10-03] MEDS: ZyrTEC TAB 10 MG PO SCH (08:39)
[2018-10-03] MEDS: LEVAQUIN PREMIX IV 500 MG 500 MG/100 ML BAG IV SCH (08:42)
[2018-10-03] MEDS: XANAX PO PRN (08:54)
[2018-10-03 08:59] LABS: ABG BASE EXCESS 11.6 mmol/L (-2.0-2.0)
[2018-10-03 09:01] LABS: ABG ALLEN TEST POS; ABG HCO3 37.1 mmol/L (22-26)
[2018-10-03] MEDS: DILTIAZEM HCL PO SCH (10:25)
--- NOTE | 2018-10-03 10:38 | RAD ---
AP chest Indication: Shortness of breath Findings: Heart size is mildly enlarged, unchanged. Stable positioning of right chest wall MediPort with its tip terminating within the lower SVC. Moderate calcified atheromatous plaque within the aortic arch. Mild scarring is again noted within the left costophrenic sulcus. No focal airspace opacity or pleural effusion. No pneumothorax. No acute osseous abnormality. Impression: Stable examination without acute cardiopulmonary abnormality. Reported By:
[2018-10-03] MEDS: PULMICORT NEB TX 0.5 MG NEB SCH (12:39)
[2018-10-03] MEDS ORDERED: LEVAQUIN PREMIX IV 750 MG 750 MG/150 ML BAG IV SCH (21:00)
== END 2018-10-03 13:05 | disposition home or self-care (01) ==
LOC: ICU 17:24 → ER 17:24 → ICU 21:04 → MED/SURG 10-02 16:13
PROVIDERS: ADMIT Internal Medicine; ATTEND Internal Medicine
DX: I25.10 Atherosclerotic heart disease of native coronary artery without angina pectoris; I51.7 Cardiomegaly; J44.1 Chronic obstructive pulmonary disease with (acute) exacerbation; K21.9 Gastro-esophageal reflux disease without esophagitis; D72.828 Other elevated white blood cell count; R06.02 Shortness of breath
CPT/HCPCS: 36415; 36591; 36600; 71010; 71045; 80053; 82550; 82553; 82803; 84484; 85025; 93005; 94640; 96365; 96367; 96372; 96374; 96375; 97163; 99284; A4222; G0378; J1642; J1650; J1956; J2920; J7620; J7626

== ENCOUNTER 2019-04-26 10:57 | Inpatient (IN) ==
--- NOTE | 2019-04-26 11:41 | DR.GENAD ---
HPI - PCP Primary Care Physician: Brijesh - HPI Comment HPI Comment: 64 y/o with recurrent chf and copd in with sob and myalgia upon awakening this am which has worsened over the past few hours; feels like she cannot catch her breath and she is "drowning"; slight cough, fever and chills.. - Nurses notes reviewed Nurses Notes Review: Yes - Source History Provided: Patient PMH - PMH Past Medical History: Coronary Artery Disease, Hypertension, Diabetes, Anxiety, Anemia, COPD, GERD, Arthritis, CHF Past Surgical History: Yes Surgical History: Appendectomy, CABG/Valve Surgery, INSOLE TAPER Surgery, Tonsillectomy - Family History Family Medical History: Diabetes Mellitus, Hypertension - Social History Do you use any recreational Drugs:: No - infectious screening Isolation: Standard ROS - Review of Systems Constitutional: Fever, Malaise, Weakness, Fatigue Eyes: No Symptoms Reported ENTM: No Symptoms Reported Respiratoy: See HPI Cardiovascular: No Symptoms Reported Gastrointestinal/Abdominal: No Symptoms Reported Genitourinary: No Symptoms Reported Neurological: No Symptoms Reported Musculoskeletal: Joint Pain, Muscle Pain, Muscle Stiffness Integumentary: Bruises (chronic) Hematologic/Lymphatic: Easy Bruising Endocrine: No Symptoms Reported Psychiatric: No Symptoms Reported PE - General Limitations: No Limitations General Appearance: Alert, In No Apparent Distress - Head Head Exam: Normal Inspection, Atraumatic - Eyes Eye exam: Normal Appearance - ENT ENT Exam: Normal Exam Nose Exam: Normal Nose Exam Mouth Exam: Normal Inspection Throat Exam: Normal Inspection - Neck Neck Exam: Normal Inspection, Full ROM - Chest Chest Inspection: Normal Inspection - Respiratory Respiratory Exam: Normal Lung Sounds Bilat Respiratory Exam: Bilateral Clear to Auscultation (anteriorly), Bilateral Decreased Breath Sounds - Cardiovascular Cardiovascular Exam: Regular Rate, Normal Rhythm - Abdominal Exam Abdominal Exam: Normal Inspection (obese) - Extremities Extremities Exam: Normal Inspection, Full ROM - Neurologic Neurological Exam: Alert, Oriented X3, CN II-XII Intact - Psychiatric Psychiatric Exam: Normal Affect, Normal Mood - Skin Skin Exam: Warm, Dry - Vital Signs Vitals: Temperature 100.0 F Pulse Rate 90 Respiratory Rate 22 Blood Pressure [Left Arm] 111/56 Blood Pressure [Right Arm] 111/56 Blood Pressure 136/60 O2 Sat by Pulse Oximetry 97 ROR - Labs Reviewed Laboratory Results Reviewed?: Yes Result Diagrams: 04/26/19 11:30 04/26/19 11:30 - XRAY XRAY Interpreted by: Radiologist (no acute change) - Labs Reviewed Laboratory: WBC 8.4 X10^3/uL (3.6-10.0) 04/26/19 11:30 RBC 3.59 X10^6/uL (3.5-5.4) 04/26/19 11:30 Hgb 11.2 g/dL (12.0-16.0) L 04/26/19 11:30 Hct 33.7 % (36.0-47.0) L 04/26/19 11:30 MCV 94.0 fL (80.0-100.0) 04/26/19 11:30 MCH 31.2 pg (27.0-34.0) 04/26/19 11:30 MCHC 33.2 g/dL (33.0-35.0) 04/26/19 11:30 RDW 13.9 % (11.6-16.5) 04/26/19 11:30 Plt Count 286 X10^3/uL (150.0-450.0) 04/26/19 11:30 MPV 7.9 fL (7.4-11.0) 04/26/19 11:30 Neut % (Auto) 67.5 % (42.0-75.0) 04/26/19 11:30 Lymph % (Auto) 20.7 % (21.0-51.0) L 04/26/19 11:30 [place] % (Auto) 9.3 % (0.0-13.0) 04/26/19 11:30 Eos % (Auto) 1.4 % (0.9-2.9) 04/26/19 11:30 Baso % (Auto) 1.1 % (0.2-1.0) H 04/26/19 11:30 Neut # (Auto) 5.6 x10^3/uL (2.2-4.8) H 04/26/19 11:30 Lymph # (Auto) 1.7 X10^3/uL (1.3-2.9) 04/26/19 11:30 [place] # (Auto) 0.8 x10^3/uL (0.3-0.8) 04/26/19 11:30 Eos # (Auto) 0.1 x10^3/uL (0.0-0.2) 04/26/19 11:30 Baso # (Auto) 0.1 X10^3/uL (0.0-0.1) 04/26/19 11:30 Absolute Nucleated RBC 0.1 /100WBC 04/26/19 11:30 Sodium 139 mmol/L (136-145) 04/26/19 11:30 Corrected Sodium TNP 04/26/19 11:30 Potassium 3.9 mmol/L (3.5-5.1) 04/26/19 11:30 Chloride 95 mmol/L (98-107) L 04/26/19 11:30 Carbon Dioxide 37.1 mmol/L (21-32) H 04/26/19 11:30 BUN 27 mg/dL (7-18) H 04/26/19 11:30 Creatinine 1.43 mg/dL (0.55-1.02) H 04/26/19 11:30 Est GFR (MDRD) Af Amer 47 (>60) L 04/26/19 11:30 Est GFR (MDRD) Non-Af 39 (>60) L 04/26/19 11:30 Glucose 101 mg/dL (65-99) H 04/26/19 11:30 Calcium 8.5 mg/dL (8.5-10.1) 04/26/19 11:30 Corrected Calcium 9.1 mg/dL (8.5-10.1) 04/26/19 11:30 Total Bilirubin 0.30 mg/dL (0.2-1.0) 04/26/19 11:30 AST 53 Units/L (15-37) H 04/26/19 11:30 ALT 52 Units/L (12-78) 04/26/19 11:30 Alkaline Phosphatase 122 Units/L (46-116) H 04/26/19 11:30 Creatine Kinase 35 Units/L (26-192) 04/26/19 11:30 CK-MB (CK-2) < 1.0 ng/mL (0-4.0) 04/26/19 11:30 CK/CKMB % Calc 2.9 % (<4) 04/26/19 11:30 Troponin I < 0.02 ng/mL (0-1.5) 04/26/19 11:30 B-Natriuretic Peptide 61.7 pg/mL (0-79) 04/26/19 11:30 Total Protein 7.9 g/dL (6.4-8.2) 04/26/19 11:30 Albumin 3.3 g/dL (3.4-5.0) L 04/26/19 11:30 Globulin 4.6 g/dL (2.5-4.5) H 04/26/19 11:30 Albumin/Globulin Ratio 0.7 Ratio (1.1-2.1) L 04/26/19 11:30 Specimen Type Catherized urine 04/26/19 12:18 Urine Color Yellow (YELLOW) 04/26/19 12:18 Urine Appearance Clear (CLEAR) 04/26/19 12:18 Urine pH 6.5 (5.0 - 8.0) 04/26/19 12:18 Ur Specific [place] 1.010 (1.000-1.030) 04/26/19 12:18 Urine Protein 2+ (NEGATIVE) 04/26/19 12:18 Urine Glucose (UA) Negative (NEGATIVE) 04/26/19 12:18 Urine Ketones Negative (NEGATIVE) 04/26/19 12:18 Urine Occult Blood 4+ (NEGATIVE) 04/26/19 12:18 Urine Nitrite Negative (NEGATIVE) 04/26/19 12:18 Urine Bilirubin Negative (NEGATIVE) 04/26/19 12:18 Urine Urobilinogen Normal (NORMAL) 04/26/19 12:18 Ur Leukocyte Esterase Negative (NEGATIVE) 04/26/19 12:18 Urine RBC 5-10 /HPF (0-3) A 04/26/19 12:18 Urine WBC 0-2 /HPF (0-5) 04/26/19 12:18 Ur Squamous Epith Cells Few /HPF (NEGATIVE) 04/26/19 12:18 Urine Bacteria Trace /HPF (NEGATIVE) 04/26/19 12:18 Urine Mucus Few /HPF (NEGATIVE) 04/26/19 12:18 Ur Culture Indicated? No/not indicated 04/26/19 12:18 Influenza Type A (PCR) Negative (NEGATIVE) 04/26/19 11:47 Influenza Type B (PCR) Negative (NEGATIVE) 04/26/19 11:47 Opioid - Opioid Risk Tool Age (Jann box if 16-45): No History of Preadolescent Sexual Abuse: No Total: 0 Total Score Risk Category: Low Risk - Diagnosis Discharge Problem: COPD exacerbation, SOB (shortness of breath), Low grade fever ARF (acute renal failure) Qualifiers: Acute renal failure type: unspecified Qualified Code(s): N17.9 - Acute kidney failure, unspecified - Discharge Plan Disposition: ADMITTED INPATIENT Condition: Stable - Follow ups/Referrals Follow ups/Referrals: DAVONTE MAY [Primary Care Provider] - 3 days - Instructions Instructions: Shortness of Breath, Adult, [id number]
[2019-04-26] MEDS ORDERED: LASIX IVP ONE ×2 (11:43→11:45)
[2019-04-26] MEDS ORDERED: PERCOCET TAB 5/325 MG ONE (11:45)
[2019-04-26] MEDS ORDERED: PERCOCET TAB 5/325 MG PO ONE (11:45)
[2019-04-26 11:47] LABS: BASOPHILS # (AUTO) 0.1 X10^3/uL (0.0-0.1); BASOPHILS % (AUTO) 1.1 % (0.2-1.0); EOSINOPHILS # (AUTO) 0.1 x10^3/uL (0.0-0.2); EOSINOPHILS % (AUTO) 1.4 % (0.9-2.9); HEMATOCRIT 33.7 % (36.0-47.0); HEMOGLOBIN 11.2 g/dL (12.0-16.0); LYMPHOCYTES # (AUTO) 1.7 X10^3/uL (1.3-2.9); LYMPHOCYTES % (AUTO) 20.7 % (21.0-51.0); MEAN CORPUSCULAR HEMOGLOBIN 31.2 pg (27.0-34.0); MEAN CORPUSCULAR HGB CONC 33.2 g/dL (33.0-35.0); MEAN PLATELET VOLUME 7.9 fL (7.4-11.0); MONOCYTES # (AUTO) 0.8 x10^3/uL (0.3-0.8); MONOCYTES % (AUTO) 9.3 % (0.0-13.0); NEUTROPHILS # (AUTO) 5.6 x10^3/uL (2.2-4.8); NEUTROPHILS % (AUTO) 67.5 % (42.0-75.0); PLATELET COUNT 286 X10^3/uL (150.0-450.0); RED BLOOD COUNT 3.59 X10^6/uL (3.5-5.4); RED CELL DISTRIBUTION WIDTH 13.9 % (11.6-16.5); WHITE BLOOD COUNT 8.4 X10^3/uL (3.6-10.0)
[2019-04-26 12:07] LABS: ALANINE AMINOTRANSFERASE 52 Units/L (12-78); ALBUMIN 3.3 g/dL (3.4-5.0); ALKALINE PHOSPHATASE 122 Units/L (46-116); ASPARTATE AMINO TRANSFERASE 53 Units/L (15-37); BLOOD UREA NITROGEN 27 mg/dL (7-18); CALCIUM 8.5 mg/dL (8.5-10.1); CARBON DIOXIDE 37.1 mmol/L (21-32); CHLORIDE 95 mmol/L (98-107); CKMB % 2.9 % (<4); COR CA(FOR HYPOALB) 9.1 mg/dL (8.5-10.1); CREATINE KINASE 35 Units/L (26-192); CREATINE KINASE MB < 1.0 ng/mL (0-4.0); CREATININE 1.43 mg/dL (0.55-1.02); SODIUM 139 mmol/L (136-145); TOTAL PROTEIN 7.9 g/dL (6.4-8.2); TROPONIN I < 0.02 ng/mL (0-1.5); eGFR NON BLACK RACES 39 (>60)
[2019-04-26 12:25] LABS: BILIRUBIN,URINE NEGATIVE (NEGATIVE); BLOOD/HEMOGLOBIN,URINE 4+ (NEGATIVE); GLUCOSE, URINE NEGATIVE (NEGATIVE); KETONES,URINE NEGATIVE (NEGATIVE); LEUKOCYTE ESTERASE ,URINE NEGATIVE (NEGATIVE); NITRITES,URINE NEGATIVE (NEGATIVE); PH,URINE 6.5 (5.0 - 8.0); PROTEIN,URINE 2+ (NEGATIVE); UROBILINOGEN,URINE NORMAL (NORMAL)
[2019-04-26 12:32] LABS: APPEARANCE,URINE CLEAR (CLEAR); COLOR,URINE YELLOW (YELLOW)
[2019-04-26 12:33] LABS: BACTERIA,URINE TRACE /HPF (NEGATIVE); MUCUS,URINE FEW /HPF (NEGATIVE); SQUAMOUS EPITHELIAL CELL,UR FEW /HPF (NEGATIVE)
--- NOTE | 2019-04-26 12:50 | RAD ---
HISTORY: Shortness of breath Study: Single-view chest Comparison: 03/18/2019 Findings: The trachea is midline. The cardiac silhouette is enlarged with a tortuous thoracic aorta. A right-sided port a catheter is observed and stable in position in the SVC. Chronic interstitial lung changes are noted to be present. No definite infiltrate or effusion can be identified. The bony thorax is unremarkable. IMPRESSION: Chronic interstitial lung changes are observed without definite infiltrate or effusion. Reported By:
[2019-04-26 12:54] VITALS: BMI 48.0
[2019-04-26] MEDS ORDERED: DUONEB 0.5 MG/3 MG NEB ONE (12:56)
[2019-04-26] MEDS ORDERED: DUONEB 0.5 MG/3 MG ONE (13:04)
[2019-04-26] MEDS: DUONEB 0.5 MG/3 MG NEB SCH ×3 (13:14→16:15)
[2019-04-26] MEDS ORDERED: SOLU-Medrol 125 MG VIAL IVP SCH (14:00)
[2019-04-26 14:42] LABS: ABG BASE EXCESS 14.7 mmol/L (-2.0-2.0)
[2019-04-26 14:43] LABS: ABG ALLEN TEST POS; ABG HCO3 41.8 mmol/L (22-26)
[2019-04-26] MEDS ORDERED: NS 1000 ML 1,000 ML ONE (15:00)
[2019-04-26] MEDS: ZITHROMAX INJ 500 MG VIAL 500 MG in NS 250 ML IV 250 ML IV SCH (15:16)
[2019-04-26] MEDS ORDERED: SALINE 3% 15 ML NEB TX NEB ONE (16:24)
[2019-04-27] MEDS: AMBIEN PO PRN ×2 (00:04→20:07)
[2019-04-27] MEDS: DUONEB 0.5 MG/3 MG NEB SCH ×6 (00:33→16:42)
[2019-04-27] MEDS ORDERED: ZOFRAN TAB 4 MG PO PRN (07:57)
[2019-04-27] MEDS ORDERED: PHARMACY CONSULT - DOSE _____ XX SCH (08:00)
[2019-04-27] MEDS ORDERED: LOVENOX INJ 30 MG SYR SC SCH (09:00)
[2019-04-27] MEDS ORDERED: LASIX IVP SCH ×2 (09:00→21:00)
[2019-04-27] MEDS ORDERED: CARDIZEM CD 120 MG PO SCH (09:00)
[2019-04-27] MEDS ORDERED: PROTONIX TAB 40 MG PO SCH (09:00)
--- NOTE | 2019-04-27 09:37 | DR.H&P ---
H&P - History & Physical for Day of: H&P Date: 04/26/19 - Chief Complaint Chief Complaint: SOB, SWELLING - History of Present Illness History of Present Illness: 64 WF ER ADMISSION AFTER PRESENTING WITH CO SOB AND SEVERE SWELLING. PT STATES SHE HAS COPD AND CHF. PT IS ON CONTINUOUS SUPPLEMENTAL O2, DUO NEBS AT HOME. PT WAS GIVEN ROCEPHIN SHOT ON SATURDAY AT DR JEFFERS OFFICE WITH URI SYMPTOMS. PT ALSO ON LASIX FOR SWELLING. PT HAS PMH OF CHF, COPD, OA, RESP FAILURE, DHARA, RENAL INSUFFICIENCY, HTN. PT ADMITTED FOR TREATMENT OF SOB, COPD EXACERBATION. 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, Tonsillectomy - Family History Family Medical History: Diabetes Mellitus, Hypertension - Social History Does patient currently use any type of tobacco product: No Have you used tobacco products in the last 12 months: No Type of Tobacco Use: None Alcohol Use: None Drug Use: Prescription Drugs - Medications Home Medications: ketorolac [From Toradol] Allergy (Verified 03/29/19 17:55) nalbuphine [From Nubain] Allergy (Verified 03/29/19 17:55) Penicillins Allergy (Verified 03/29/19 17:55) Sulfa (Sulfonamide Antibiotics) [SULFA] Allergy (Verified 03/29/19 17:55) BETA BLOCKERS Allergy (Uncoded 03/29/19 17:55) CONTINUE taking the following medications albuterol sulfate [Ventolin HFA] 2 puff INHALATION Q6H PRN 04/26/19 [History] levofloxacin 500 mg PO DAILY 04/26/19 [History] levothyroxine 25 mg PO DAILY 04/26/19 [History] upaajl-fyxklxde-jfjdxer [Creon] 2 cap PO TID 04/26/19 [History] polyethylene glycol 3350 17 g/day PO DAILY 04/26/19 [History] ranitidine HCl 300 mg PO BID 04/26/19 [History] - Review of Systems Constitutional: Weakness Eyes: No Symptoms Reported ENT: No Symptoms Reported Respiratory: Shortness of Breath, SOB with Excertion, Wheezing Cardiovascular: Edema Gastrointestinal: Nausea Genitourinary: No Symptoms Reported Musculoskeletal: Back Pain, Leg Pain Skin: No Symptoms Reported Neurological: No Symptoms Reported - Physical Exam Vital Signs: Temperature 97.9 F Pulse Rate [Left Brachial] 85 Pulse Rate 88 Respiratory Rate 20 Blood Pressure [Left Arm] 128/80 Blood Pressure [Right Arm] 146/71 Blood Pressure 125/60 O2 Sat by Pulse Oximetry 96 Oriented: Normal Eyes: Normal Ear: Normal Nose: Normal Throat: Normal Respiratory: Rales Throughout, Wheezes Throughout, RLL Diminished, LLL Diminished Cardiovascular: Normal, Edema : Normal Auscultation: Bowel Sounds: Normal Palpation: Normal Tenderness: Normal Skin: Decreased Turgur Musculoskeletal: Right, Left, Knee, Leg, Back:Thoracic, Back:Lumbar, Swelling, Tender, Motor Deficit Psychiatric: Anxiety Affect: Anxious Speech Pattern: Clear, Appropriate - Assessment/Plan (1) SOB (shortness of breath) Status: Acute Plan: ADMIT, CXR ON ADMISSION. TODD CATH, STRICT I&OS. IV LASIX, RESP THERAPY, ABG ON ADMISSION. VERIFY HOME MEDICATION, DUO NEBS, SPUTUM CULTURE (2) COPD exacerbation Status: Acute (3) CHF (congestive heart failure) Qualifiers: Heart failure chronicity: chronic Status: Acute (4) Hypertension Status: Chronic - Allergies Allergies/Adverse Reactions: Allergies Allergy/AdvReac Type Severity Reaction Status Date / Time ketorolac [From Toradol] Allergy Verified 03/29/19 17:55 nalbuphine [From Nubain] Allergy Verified 03/29/19 17:55 Penicillins Allergy Verified 03/29/19 17:55 Sulfa (Sulfonamide Allergy Verified 03/29/19 17:55 Antibiotics) [SULFA] BETA BLOCKERS Allergy Uncoded 03/29/19 17:55
[2019-04-27] MEDS: ZITHROMAX INJ 500 MG VIAL 500 MG in NS 250 ML IV 250 ML IV SCH (10:01)
[2019-04-27] MEDS: NS 1/2 1000 ML IV 1,000 ML IV SCH (10:02)
[2019-04-27] MEDS: PERCOCET TAB 5/325 MG PO PRN ×2 (11:27→20:06)
--- NOTE | 2019-04-27 13:44 | CT ---
History: Fall with right knee pain Study: CT of the right knee without contrast. Sagittal and coronal reformations were provided. Dose reduction techniques were utilized. Findings : There is no joint effusion. There is generalized osteopenia. There is subchondral sclerosis of the medial tibial plateau with mild depression. Posterior cruciate ligament is seen and appears intact. The patella is unremarkable. No significant osteophyte formation is demonstrated. Impression: Mild medial tibial plateau fracture and compression Reported By:
[2019-04-27] MEDS ORDERED: SOLU-Medrol 125 MG VIAL IVP SCH (14:00)
[2019-04-27] MEDS: SOLU-Medrol 125 MG VIAL IVP SCH ×2 (15:05→22:27)
--- NOTE | 2019-04-27 17:32 | PCM.PROG ---
Progress Note - Progress Note for Day of Date of Exam: 04/27/19 - Subjective Subjective: 64 WF ER ADMISSION WITH CO SOB AND LOWER EXTREMITY SWELLING. PT HAS HX OF COPD RESP FAILURE. PT WAS STARTED ON IV ATBX, IV LASIX WITH TODD CATH WITH STRICT I & OS. PT REPORTS PAIN IN RIGHT KNEE AND CO NERVOUSNESS. PT HAD NOT COLLECTED SPUTUM AT THIS TIME. CURRENTLY ON DUO NEBS WITH SUPPLEMENTAL O2, PT ENCOURAGED TO COLLECT SPUTUM AND ORAL HYDRATION. - Past Medical Family Social History Past Med/Fam/Surg Hx: No changes since H&P Allergies: Allergies ketorolac [From Toradol] Allergy (Verified 03/29/19 17:55) nalbuphine [From Nubain] Allergy (Verified 03/29/19 17:55) Penicillins Allergy (Verified 03/29/19 17:55) Sulfa (Sulfonamide Antibiotics) [SULFA] Allergy (Verified 03/29/19 17:55) BETA BLOCKERS Allergy (Uncoded 03/29/19 17:55) - Review of Systems ROS: No change since H&P - Vital Signs and I&O's Vital Signs: Temperature 97.7 F Pulse Rate [Left Brachial] 91 Pulse Rate 88 Respiratory Rate 20 Blood Pressure [Left Arm] 122/67 Blood Pressure [Right Arm] 146/71 Blood Pressure 125/60 O2 Sat by Pulse Oximetry 95 Intake and Output: Intake & Output 04/25/19 04/26/19 04/27/19 04/28/19 11:59 11:59 11:59 11:59 Intake Total 1221 / 1221 1140 / 1140 Output Total 3500 / 3500 1750 / 1750 Balance -2279 / -2279 -610 / -610 - Physical Exam Oriented: Normal Eyes: Normal Ear: Normal Nose: Normal Throat: Normal Respiratory: Diminished, Rhonchi Cardiovascular: Normal, Edema : Normal Auscultation: Bowel Sounds: Normal Tenderness: Normal Skin: Decreased Turgur Musculoskeletal: Right, Left, Knee, Leg, Back:Thoracic, Back:Lumbar, Swelling, Tender, Motor Deficit Psychiatric: Anxiety Affect: Anxious Speech Pattern: Clear, Appropriate - Laboratory and Diagnostics Result Diagrams: 04/26/19 11:30 04/26/19 11:30 Labs: Laboratory WBC 8.4 X10^3/uL (3.6-10.0) 04/26/19 11:30 RBC 3.59 X10^6/uL (3.5-5.4) 04/26/19 11:30 Hgb 11.2 g/dL (12.0-16.0) L 04/26/19 11:30 Hct 33.7 % (36.0-47.0) L 04/26/19 11:30 MCV 94.0 fL (80.0-100.0) 04/26/19 11:30 MCH 31.2 pg (27.0-34.0) 04/26/19 11:30 MCHC 33.2 g/dL (33.0-35.0) 04/26/19 11:30 RDW 13.9 % (11.6-16.5) 04/26/19 11:30 Plt Count 286 X10^3/uL (150.0-450.0) 04/26/19 11:30 MPV 7.9 fL (7.4-11.0) 04/26/19 11:30 Neut % (Auto) 67.5 % (42.0-75.0) 04/26/19 11:30 Lymph % (Auto) 20.7 % (21.0-51.0) L 04/26/19 11:30 [place] % (Auto) 9.3 % (0.0-13.0) 04/26/19 11:30 Eos % (Auto) 1.4 % (0.9-2.9) 04/26/19 11:30 Baso % (Auto) 1.1 % (0.2-1.0) H 04/26/19 11:30 Neut # (Auto) 5.6 x10^3/uL (2.2-4.8) H 04/26/19 11:30 Lymph # (Auto) 1.7 X10^3/uL (1.3-2.9) 04/26/19 11:30 [place] # (Auto) 0.8 x10^3/uL (0.3-0.8) 04/26/19 11:30 Eos # (Auto) 0.1 x10^3/uL (0.0-0.2) 04/26/19 11:30 Baso # (Auto) 0.1 X10^3/uL (0.0-0.1) 04/26/19 11:30 Absolute Nucleated RBC 0.1 /100WBC 04/26/19 11:30 Sample Site Lr 04/26/19 14:35 ABG pH 7.430 (7.35-7.45) 04/26/19 14:35 ABG pCO2 63.0 mmHg (35.0-45.0) H* 04/26/19 14:35 ABG pO2 54.0 mmHg (80.0-100.0) L 04/26/19 14:35 ABG HCO3 41.8 mmol/L (22-26) H* 04/26/19 14:35 ABG O2 Saturation 89.0 % (90-100) L 04/26/19 14:35 ABG Base Excess 14.7 mmol/L (-2.0-2.0) H 04/26/19 14:35 Sameer Test Pos 04/26/19 14:35 A-a Gradient 95.0 mmHg 04/26/19 14:35 FiO2 32.0 04/26/19 14:35 Blood Gas Comments Pt baltazar well. cdn 04/26/19 14:35 Sodium 139 mmol/L (136-145) 04/26/19 11:30 Corrected Sodium TNP 04/26/19 11:30 Potassium 3.9 mmol/L (3.5-5.1) 04/26/19 11:30 Chloride 95 mmol/L (98-107) L 04/26/19 11:30 Carbon Dioxide 37.1 mmol/L (21-32) H 04/26/19 11:30 BUN 27 mg/dL (7-18) H 04/26/19 11:30 Creatinine 1.43 mg/dL (0.55-1.02) H 04/26/19 11:30 Est GFR (MDRD) Af Amer 47 (>60) L 04/26/19 11:30 Est GFR (MDRD) Non-Af 39 (>60) L 04/26/19 11:30 Glucose 101 mg/dL (65-99) H 04/26/19 11:30 Calcium 8.5 mg/dL (8.5-10.1) 04/26/19 11:30 Corrected Calcium 9.1 mg/dL (8.5-10.1) 04/26/19 11:30 Total Bilirubin 0.30 mg/dL (0.2-1.0) 04/26/19 11:30 AST 53 Units/L (15-37) H 04/26/19 11:30 ALT 52 Units/L (12-78) 04/26/19 11:30 Alkaline Phosphatase 122 Units/L (46-116) H 04/26/19 11:30 Creatine Kinase 35 Units/L (26-192) 04/26/19 11:30 CK-MB (CK-2) < 1.0 ng/mL (0-4.0) 04/26/19 11:30 CK/CKMB % Calc 2.9 % (<4) 04/26/19 11:30 Troponin I < 0.02 ng/mL (0-1.5) 04/26/19 11:30 B-Natriuretic Peptide 61.7 pg/mL (0-79) 04/26/19 11:30 Total Protein 7.9 g/dL (6.4-8.2) 04/26/19 11:30 Albumin 3.3 g/dL (3.4-5.0) L 04/26/19 11:30 Globulin 4.6 g/dL (2.5-4.5) H 04/26/19 11:30 Albumin/Globulin Ratio 0.7 Ratio (1.1-2.1) L 04/26/19 11:30 Specimen Type Catherized urine 04/26/19 12:18 Urine Color Yellow (YELLOW) 04/26/19 12:18 Urine Appearance Clear (CLEAR) 04/26/19 12:18 Urine pH 6.5 (5.0 - 8.0) 04/26/19 12:18 Ur Specific [place] 1.010 (1.000-1.030) 04/26/19 12:18 Urine Protein 2+ (NEGATIVE) 04/26/19 12:18 Urine Glucose (UA) Negative (NEGATIVE) 04/26/19 12:18 Urine Ketones Negative (NEGATIVE) 04/26/19 12:18 Urine Occult Blood 4+ (NEGATIVE) 04/26/19 12:18 Urine Nitrite Negative (NEGATIVE) 04/26/19 12:18 Urine Bilirubin Negative (NEGATIVE) 04/26/19 12:18 Urine Urobilinogen Normal (NORMAL) 04/26/19 12:18 Ur Leukocyte Esterase Negative (NEGATIVE) 04/26/19 12:18 Urine RBC 5-10 /HPF (0-3) A 04/26/19 12:18 Urine WBC 0-2 /HPF (0-5) 04/26/19 12:18 Ur Squamous Epith Cells Few /HPF (NEGATIVE) 04/26/19 12:18 Urine Bacteria Trace /HPF (NEGATIVE) 04/26/19 12:18 Urine Mucus Few /HPF (NEGATIVE) 04/26/19 12:18 Ur Culture Indicated? No/not indicated 04/26/19 12:18 Influenza Type A (PCR) Negative (NEGATIVE) 04/26/19 11:47 Influenza Type B (PCR) Negative (NEGATIVE) 04/26/19 11:47 - Plan (1) SOB (shortness of breath) Status: Acute Plan: CXR ON ADMISSION, REPEAT Q AM. TODD CATH, STRICT I&OS. IV LASIX, RESP THERAPY, ABG ON ADMISSION. RESUME HOME MEDICATION, DUO NEBS, SPUTUM CULTURE (2) COPD exacerbation Status: Acute (3) CHF (congestive heart failure) Status: Acute Qualifiers: Heart failure chronicity: chronic (4) Hypertension Status: Chronic (5) Knee pain, right Status: Acute Plan: CT RIGHT KNEE, CONTINUE PAIN CONROL. KNEE IMMOBILIZER
[2019-04-27] MEDS: XANAX PO PRN (20:07)
[2019-04-27] MEDS: NEURONTIN TAB 600 MG PO PRN (20:37)
[2019-04-27] MEDS ORDERED: PHENERGAN TAB 25 MG PO PRN (21:03)
[2019-04-27] MEDS: CREON PO SCH (22:27)
[2019-04-27] MEDS: REQUIP PO SCH (22:27)
[2019-04-28] MEDS: DUONEB 0.5 MG/3 MG NEB SCH ×5 (00:40→17:08)
[2019-04-28] MEDS: PERCOCET TAB 5/325 MG PO PRN ×3 (04:49→22:15)
[2019-04-28] MEDS: SOLU-Medrol 125 MG VIAL IVP SCH ×2 (05:00→14:40)
[2019-04-28 05:06] LABS: BASOPHILS % (AUTO) 0.1 % (0.2-1.0); HEMATOCRIT 36.3 % (36.0-47.0); LYMPHOCYTES # (AUTO) 0.8 X10^3/uL (1.3-2.9); LYMPHOCYTES % (AUTO) 9.1 % (21.0-51.0); MEAN CORPUSCULAR HEMOGLOBIN 31.2 pg (27.0-34.0); MEAN CORPUSCULAR HGB CONC 33.1 g/dL (33.0-35.0); MEAN CORPUSCULAR VOLUME 94.1 fL (80.0-100.0); MEAN PLATELET VOLUME 8.4 fL (7.4-11.0); MONOCYTES # (AUTO) 0.3 x10^3/uL (0.3-0.8); NEUTROPHILS # (AUTO) 7.4 x10^3/uL (2.2-4.8); NEUTROPHILS % (AUTO) 87.8 % (42.0-75.0); PLATELET COUNT 297 X10^3/uL (150.0-450.0); RED BLOOD COUNT 3.86 X10^6/uL (3.5-5.4); RED CELL DISTRIBUTION WIDTH 13.6 % (11.6-16.5); WHITE BLOOD COUNT 8.4 X10^3/uL (3.6-10.0)
[2019-04-28 05:14] LABS: ALANINE AMINOTRANSFERASE 108 Units/L (12-78); ALBUMIN 3.5 g/dL (3.4-5.0); ALKALINE PHOSPHATASE 126 Units/L (46-116); ASPARTATE AMINO TRANSFERASE 96 Units/L (15-37); BLOOD UREA NITROGEN 45 mg/dL (7-18); CARBON DIOXIDE 35.2 mmol/L (21-32); CHLORIDE 92 mmol/L (98-107); COR NA(FOR HYPERGLY) 140 mmol/L (136-145); CREATININE 1.75 mg/dL (0.55-1.02); SODIUM 137 mmol/L (136-145); TOTAL PROTEIN 8.3 g/dL (6.4-8.2); eGFR NON BLACK RACES 31 (>60)
[2019-04-28] MEDS: CREON PO SCH ×3 (06:10→18:00)
[2019-04-28] MEDS ORDERED: LASIX IVP SCH (09:00)
[2019-04-28] MEDS: CARDIZEM CD 120 MG PO SCH (09:31)
[2019-04-28] MEDS: ZITHROMAX INJ 500 MG VIAL 500 MG in NS 250 ML IV 250 ML IV SCH (09:32)
[2019-04-28] MEDS: PROTONIX TAB 40 MG PO SCH (09:32)
[2019-04-28] MEDS: LOVENOX INJ 30 MG SYR SC SCH (09:33)
[2019-04-28] MEDS: ROBITUSSIN DM PO SCH ×4 (09:36→20:02)
[2019-04-28] MEDS: NS 1/2 1000 ML IV 1,000 ML IV SCH ×2 (09:37→09:56)
--- NOTE | 2019-04-28 09:41 | RAD ---
History: COPD and congestive heart failure Study: Portable AP chest Comparison: April 26 2019 Findings: There is mild chronic interstitial lung disease as before without focal lung consolidation or atelectasis. There is no effusion or congestion. The heart size is normal. There is an unchanged right subclavian portal venous catheter. Impression: No evidence for acute cardiopulmonary disease Reported By:
[2019-04-28] MEDS ORDERED: NS 1/2 1000 ML IV 1,000 ML IV ONE (09:43)
[2019-04-28] MEDS: NEURONTIN TAB 600 MG PO PRN ×2 (09:45→20:03)
[2019-04-28] MEDS: XANAX PO PRN ×2 (09:45→20:03)
[2019-04-28 09:50] LABS: AMYLASE 43 Units/L (25-115); LIPASE 80 Units/L (73-393)
[2019-04-28] MEDS ORDERED: CHRONULAC PO SCH (10:00)
[2019-04-28 10:05] LABS: AMMONIA < 10 umol/L (11-32)
[2019-04-28] MEDS: REQUIP PO SCH (20:03)
[2019-04-28] MEDS: AMBIEN PO PRN (22:15)
[2019-04-29] MEDS: DUONEB 0.5 MG/3 MG NEB SCH ×4 (00:55→17:37)
[2019-04-29] MEDS ORDERED: NS 1/2 1000 ML IV 0 ML IV ONE (05:19)
[2019-04-29] MEDS ORDERED: NS 1/2 1000 ML IV 1,000 ML IV ONE (05:20)
[2019-04-29] MEDS: NS 1/2 1000 ML IV 1,000 ML IV SCH ×2 (05:28→10:52)
[2019-04-29] MEDS: CREON PO SCH ×3 (06:00→18:07)
[2019-04-29 06:18] LABS: BASOPHILS % (AUTO) 0.2 % (0.2-1.0); EOSINOPHILS % (AUTO) 0.1 % (0.9-2.9); HEMATOCRIT 34.2 % (36.0-47.0); HEMOGLOBIN 11.6 g/dL (12.0-16.0); LYMPHOCYTES # (AUTO) 0.6 X10^3/uL (1.3-2.9); LYMPHOCYTES % (AUTO) 7.3 % (21.0-51.0); MEAN CORPUSCULAR HEMOGLOBIN 31.5 pg (27.0-34.0); MEAN CORPUSCULAR HGB CONC 33.9 g/dL (33.0-35.0); MEAN PLATELET VOLUME 8.4 fL (7.4-11.0); MONOCYTES # (AUTO) 0.4 x10^3/uL (0.3-0.8); MONOCYTES % (AUTO) 4.8 % (0.0-13.0); NEUTROPHILS # (AUTO) 7.7 x10^3/uL (2.2-4.8); NEUTROPHILS % (AUTO) 87.6 % (42.0-75.0); PLATELET COUNT 243 X10^3/uL (150.0-450.0); RED BLOOD COUNT 3.68 X10^6/uL (3.5-5.4); RED CELL DISTRIBUTION WIDTH 13.7 % (11.6-16.5); WHITE BLOOD COUNT 8.7 X10^3/uL (3.6-10.0)
[2019-04-29 06:25] LABS: ALBUMIN 3.1 g/dL (3.4-5.0); CALCIUM 8.5 mg/dL (8.5-10.1); CARBON DIOXIDE 35.8 mmol/L (21-32); COR CA(FOR HYPOALB) 9.2 mg/dL (8.5-10.1); CREATININE 1.47 mg/dL (0.55-1.02); TOTAL PROTEIN 7.3 g/dL (6.4-8.2)
[2019-04-29] MEDS ORDERED: XANAX PO ONE (09:18)
[2019-04-29] MEDS: CHRONULAC PO SCH (10:41)
[2019-04-29] MEDS: ZITHROMAX INJ 500 MG VIAL 500 MG in NS 250 ML IV 250 ML IV SCH (10:42)
[2019-04-29] MEDS: ROBITUSSIN DM PO SCH ×4 (10:43→21:12)
[2019-04-29] MEDS: LOVENOX INJ 30 MG SYR SC SCH (10:44)
[2019-04-29] MEDS: PROTONIX TAB 40 MG PO SCH (10:48)
[2019-04-29] MEDS: LASIX IVP SCH (10:52)
[2019-04-29] MEDS: CARDIZEM CD 120 MG PO SCH (10:53)
[2019-04-29] MEDS: PERCOCET TAB 5/325 MG PO PRN ×2 (10:54→21:14)
[2019-04-29] MEDS: CITRACAL + VITAMIN D PO SCH (14:15)
[2019-04-29] MEDS: REQUIP PO SCH (21:13)
[2019-04-29] MEDS: AMBIEN PO PRN (21:13)
[2019-04-29] MEDS: NEURONTIN TAB 600 MG PO PRN (21:15)
[2019-04-30] MEDS: DUONEB 0.5 MG/3 MG NEB SCH ×6 (00:20→18:47)
[2019-04-30] MEDS ORDERED: NS 1/2 1000 ML IV 1,000 ML IV ONE (06:00)
[2019-04-30] MEDS: NS 1/2 1000 ML IV 1,000 ML IV SCH ×2 (06:00→09:37)
[2019-04-30] MEDS: CREON PO SCH ×3 (06:05→17:28)
[2019-04-30 06:19] LABS: BASOPHILS % (AUTO) 0.1 % (0.2-1.0); EOSINOPHILS % (AUTO) 0.2 % (0.9-2.9); HEMATOCRIT 35.2 % (36.0-47.0); LYMPHOCYTES # (AUTO) 1.5 X10^3/uL (1.3-2.9); LYMPHOCYTES % (AUTO) 15.4 % (21.0-51.0); MEAN CORPUSCULAR HEMOGLOBIN 31.4 pg (27.0-34.0); MEAN CORPUSCULAR VOLUME 92.2 fL (80.0-100.0); MONOCYTES # (AUTO) 0.7 x10^3/uL (0.3-0.8); MONOCYTES % (AUTO) 7.7 % (0.0-13.0); NEUTROPHILS # (AUTO) 7.3 x10^3/uL (2.2-4.8); NEUTROPHILS % (AUTO) 76.6 % (42.0-75.0); PLATELET COUNT 253 X10^3/uL (150.0-450.0); RED BLOOD COUNT 3.82 X10^6/uL (3.5-5.4); RED CELL DISTRIBUTION WIDTH 13.6 % (11.6-16.5); WHITE BLOOD COUNT 9.6 X10^3/uL (3.6-10.0)
[2019-04-30 07:13] LABS: ALANINE AMINOTRANSFERASE 108 Units/L (12-78); ALBUMIN 3.1 g/dL (3.4-5.0); ALKALINE PHOSPHATASE 103 Units/L (46-116); ASPARTATE AMINO TRANSFERASE 66 Units/L (15-37); BLOOD UREA NITROGEN 47 mg/dL (7-18); CALCIUM 8.7 mg/dL (8.5-10.1); CARBON DIOXIDE 32.1 mmol/L (21-32); CHLORIDE 98 mmol/L (98-107); COR CA(FOR HYPOALB) 9.4 mg/dL (8.5-10.1); SODIUM 136 mmol/L (136-145); TOTAL PROTEIN 7.1 g/dL (6.4-8.2); eGFR NON BLACK RACES 44 (>60)
[2019-04-30] MEDS ORDERED: SOLU-Medrol 40 MG VIAL IVP ONE (09:31)
[2019-04-30] MEDS: ZITHROMAX INJ 500 MG VIAL 500 MG in NS 250 ML IV 250 ML IV SCH (09:34)
[2019-04-30] MEDS: LASIX IVP SCH ×2 (09:35→21:58)
[2019-04-30] MEDS: CHRONULAC PO SCH (09:35)
[2019-04-30] MEDS: PROTONIX TAB 40 MG PO SCH (09:36)
[2019-04-30] MEDS: CARDIZEM CD 120 MG PO SCH (09:36)
[2019-04-30] MEDS: ROBITUSSIN DM PO SCH ×4 (09:36→21:58)
[2019-04-30] MEDS: CITRACAL + VITAMIN D PO SCH (09:37)
[2019-04-30] MEDS: LOVENOX INJ 30 MG SYR SC SCH (09:39)
[2019-04-30] MEDS: PERCOCET TAB 5/325 MG PO PRN ×2 (09:48→22:09)
[2019-04-30] MEDS: NEURONTIN TAB 600 MG PO PRN ×2 (09:50→21:57)
[2019-04-30] MEDS: XANAX PO PRN ×2 (09:50→21:58)
--- NOTE | 2019-04-30 10:15 | RAD ---
History: COPD and CHF Study: Portable AP chest Comparison: April 28 Findings: The heart size is normal. There is no pleural effusion. There is minimal vascular congestion. There is a right-sided subclavian portal venous catheter. There is no lung consolidation or significant atelectasis. Impression: Minimal vascular congestion Reported By:
--- NOTE | 2019-04-30 12:54 | MRI ---
MRI right knee without contrast Indication: Right knee pain, history of traumatic fall Technique: Only noncontrast axial/sagittal T2 and sagittal PD MR sequences of the right knee were obtained and provided for review. 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 Several of the bone infarcts within the distal femur and proximal tibia extend to the femorotibial articular surface without definite evidence of subchondral collapse. There is tricompartmental chondromalacia, most significant within the medial femorotibial compartment. There is a trace joint effusion without lipohemarthrosis. No definite meniscal tears are identified. The PCL is grossly intact. The ACL, MCL and major lateral stabilizers of the knee are poorly evaluated on the available sequences. The extensor mechanism is grossly intact. There is nonspecific subcutaneous edema about the knee. Impression: Incomplete/limited exam as above. Consider repeat MRI, possibly with moderate sedation if clinically indicated. Reported By:
--- NOTE | 2019-04-30 17:24 | PCM.PROG ---
Progress Note - Progress Note for Day of Date of Exam: 04/28/19 - Subjective Subjective: 64 WF ER ADMISSION WITH CO SOB AND LOWER EXTREMITY SWELLING. PT HAS HX OF COPD RESP FAILURE. PT WAS STARTED ON IV ATBX, IV LASIX WITH TODD CATH WITH STRICT I & OS. PT REPORTS PAIN IN RIGHT KNEE, CT OBTAINED REVEALED TIBIAL PLATEAU FRACTURE. PT REFUSED KNEE IMMBOLIZER, PAIN CONTROL AT THIS TIME AND DISCUSSED OUTPT ORTHO REFERRAL. PT HAD NOT COLLECTED SPUTUM AT THIS TIME. CURRENTLY ON DUO NEBS WITH SUPPLEMENTAL O2, PT ENCOURAGED TO COLLECT SPUTUM AND ORAL HYDRATION. - Past Medical Family Social History Past Med/Fam/Surg Hx: No changes since H&P Allergies: Allergies ketorolac [From Toradol] Allergy (Verified 03/29/19 17:55) nalbuphine [From Nubain] Allergy (Verified 03/29/19 17:55) Penicillins Allergy (Verified 03/29/19 17:55) Sulfa (Sulfonamide Antibiotics) [SULFA] Allergy (Verified 03/29/19 17:55) BETA BLOCKERS Allergy (Uncoded 03/29/19 17:55) - Review of Systems ROS: No change since H&P - Vital Signs and I&O's Vital Signs: Temperature 98.1 F Pulse Rate [Left Brachial] 70 Pulse Rate 74 Respiratory Rate 20 Blood Pressure [Left Arm] 141/67 Blood Pressure [Right Arm] 146/67 Blood Pressure 125/60 O2 Sat by Pulse Oximetry 95 Intake and Output: Intake & Output 04/28/19 04/29/19 04/30/19 05/01/19 11:59 11:59 11:59 11:59 Intake Total 2480 / 2480 3020 / 3020 3090 / 3090 1060 / 1060 Output Total 3450 / 3450 1350 / 1350 4350 / 4350 2100 / 2100 Balance -970 / -970 1670 / 1670 -1260 / -1260 -1040 / -1040 - Physical Exam Oriented: Normal Eyes: Normal Ear: Normal Nose: Normal Throat: Normal Respiratory: Diminished, Rhonchi Cardiovascular: Normal, Edema : Normal Auscultation: Bowel Sounds: Normal Tenderness: Normal Skin: Decreased Turgur Musculoskeletal: Right, Left, Knee, Leg, Back:Thoracic, Back:Lumbar, Swelling, Tender, Motor Deficit Psychiatric: Anxiety Affect: Anxious Speech Pattern: Clear, Appropriate - Laboratory and Diagnostics Result Diagrams: 04/30/19 04:36 04/30/19 04:36 Labs: Laboratory WBC 9.6 X10^3/uL (3.6-10.0) 04/30/19 04:36 RBC 3.82 X10^6/uL (3.5-5.4) 04/30/19 04:36 Hgb 12.0 g/dL (12.0-16.0) 04/30/19 04:36 Hct 35.2 % (36.0-47.0) L 04/30/19 04:36 MCV 92.2 fL (80.0-100.0) 04/30/19 04:36 MCH 31.4 pg (27.0-34.0) 04/30/19 04:36 MCHC 34.0 g/dL (33.0-35.0) 04/30/19 04:36 RDW 13.6 % (11.6-16.5) 04/30/19 04:36 Plt Count 253 X10^3/uL (150.0-450.0) 04/30/19 04:36 MPV 8.0 fL (7.4-11.0) 04/30/19 04:36 Neut % (Auto) 76.6 % (42.0-75.0) H 04/30/19 04:36 Lymph % (Auto) 15.4 % (21.0-51.0) L 04/30/19 04:36 [place] % (Auto) 7.7 % (0.0-13.0) 04/30/19 04:36 Eos % (Auto) 0.2 % (0.9-2.9) L 04/30/19 04:36 Baso % (Auto) 0.1 % (0.2-1.0) L 04/30/19 04:36 Neut # (Auto) 7.3 x10^3/uL (2.2-4.8) H 04/30/19 04:36 Lymph # (Auto) 1.5 X10^3/uL (1.3-2.9) 04/30/19 04:36 [place] # (Auto) 0.7 x10^3/uL (0.3-0.8) 04/30/19 04:36 Eos # (Auto) 0.0 x10^3/uL (0.0-0.2) 04/30/19 04:36 Baso # (Auto) 0.0 X10^3/uL (0.0-0.1) 04/30/19 04:36 Absolute Nucleated RBC 0.1 /100WBC 04/30/19 04:36 Sample Site Lr 04/26/19 14:35 ABG pH 7.430 (7.35-7.45) 04/26/19 14:35 ABG pCO2 63.0 mmHg (35.0-45.0) H* 04/26/19 14:35 ABG pO2 54.0 mmHg (80.0-100.0) L 04/26/19 14:35 ABG HCO3 41.8 mmol/L (22-26) H* 04/26/19 14:35 ABG O2 Saturation 89.0 % (90-100) L 04/26/19 14:35 ABG Base Excess 14.7 mmol/L (-2.0-2.0) H 04/26/19 14:35 Sameer Test Pos 04/26/19 14:35 A-a Gradient 95.0 mmHg 04/26/19 14:35 FiO2 32.0 04/26/19 14:35 Blood Gas Comments Pt baltazar well. cdn 04/26/19 14:35 Sodium 136 mmol/L (136-145) 04/30/19 04:36 Corrected Sodium TNP 04/30/19 04:36 Potassium 3.9 mmol/L (3.5-5.1) 04/30/19 04:36 Chloride 98 mmol/L (98-107) 04/30/19 04:36 Carbon Dioxide 32.1 mmol/L (21-32) H 04/30/19 04:36 BUN 47 mg/dL (7-18) H 04/30/19 04:36 Creatinine 1.30 mg/dL (0.55-1.02) H 04/30/19 04:36 Est GFR (MDRD) Af Amer 53 (>60) L 04/30/19 04:36 Est GFR (MDRD) Non-Af 44 (>60) L 04/30/19 04:36 Glucose 97 mg/dL (65-99) 04/30/19 04:36 Calcium 8.7 mg/dL (8.5-10.1) 04/30/19 04:36 Corrected Calcium 9.4 mg/dL (8.5-10.1) 04/30/19 04:36 Iron 98 ug/dL (50-175) 04/28/19 04:38 Transferrin 291 mg/dL (202-364) 04/28/19 04:38 Ferritin 655 ng/mL (8-252) H 04/28/19 04:38 Total Bilirubin 0.40 mg/dL (0.2-1.0) 04/30/19 04:36 AST 66 Units/L (15-37) H 04/30/19 04:36 ALT 108 Units/L (12-78) H 04/30/19 04:36 Alkaline Phosphatase 103 Units/L (46-116) 04/30/19 04:36 Ammonia < 10 umol/L (11-32) L 04/28/19 09:37 Creatine Kinase 35 Units/L (26-192) 04/26/19 11:30 CK-MB (CK-2) < 1.0 ng/mL (0-4.0) 04/26/19 11:30 CK/CKMB % Calc 2.9 % (<4) 04/26/19 11:30 Troponin I < 0.02 ng/mL (0-1.5) 04/26/19 11:30 B-Natriuretic Peptide 61.7 pg/mL (0-79) 04/26/19 11:30 Total Protein 7.1 g/dL (6.4-8.2) 04/30/19 04:36 Albumin 3.1 g/dL (3.4-5.0) L 04/30/19 04:36 Globulin 4.0 g/dL (2.5-4.5) 04/30/19 04:36 Albumin/Globulin Ratio 0.8 Ratio (1.1-2.1) L 04/30/19 04:36 Amylase 43 Units/L (25-115) 04/28/19 09:37 Lipase 80 Units/L (73-393) 04/28/19 09:37 Vitamin B12 559 pg/mL (193-986) 04/28/19 04:38 Folate 11.5 ng/mL (>8.6) 04/28/19 04:38 Specimen Type Catherized urine 04/26/19 12:18 Urine Color Yellow (YELLOW) 04/26/19 12:18 Urine Appearance Clear (CLEAR) 04/26/19 12:18 Urine pH 6.5 (5.0 - 8.0) 04/26/19 12:18 Ur Specific [place] 1.010 (1.000-1.030) 04/26/19 12:18 Urine Protein 2+ (NEGATIVE) 04/26/19 12:18 Urine Glucose (UA) Negative (NEGATIVE) 04/26/19 12:18 Urine Ketones Negative (NEGATIVE) 04/26/19 12:18 Urine Occult Blood 4+ (NEGATIVE) 04/26/19 12:18 Urine Nitrite Negative (NEGATIVE) 04/26/19 12:18 Urine Bilirubin Negative (NEGATIVE) 04/26/19 12:18 Urine Urobilinogen Normal (NORMAL) 04/26/19 12:18 Ur Leukocyte Esterase Negative (NEGATIVE) 04/26/19 12:18 Urine RBC 5-10 /HPF (0-3) A 04/26/19 12:18 Urine WBC 0-2 /HPF (0-5) 04/26/19 12:18 Ur Squamous Epith Cells Few /HPF (NEGATIVE) 04/26/19 12:18 Urine Bacteria Trace /HPF (NEGATIVE) 04/26/19 12:18 Urine Mucus Few /HPF (NEGATIVE) 04/26/19 12:18 Ur Culture Indicated? No/not indicated 04/26/19 12:18 Influenza Type A (PCR) Negative (NEGATIVE) 04/26/19 11:47 Influenza Type B (PCR) Negative (NEGATIVE) 04/26/19 11:47 - Plan (1) SOB (shortness of breath) Status: Acute Plan: SUPPLEMENTAL O2. TODD CATH, STRICT I&OS. IV LASIX, RESP THERAPY, ABG ON ADMISSION. RESUME HOME MEDICATION, DUO NEBS, SPUTUM CULTURE (2) COPD exacerbation Status: Acute (3) CHF (congestive heart failure) Status: Acute Qualifiers: Heart failure chronicity: chronic (4) Hypertension Status: Chronic (5) Knee pain, right Status: Acute Plan: CT RIGHT KNEE, CONTINUE PAIN CONROL. KNEE IMMOBILIZER
--- NOTE | 2019-04-30 17:27 | PCM.PROG ---
Progress Note - Progress Note for Day of Date of Exam: 04/30/19 - Subjective Subjective: 64 WF ER ADMISSION WITH CO SOB AND LOWER EXTREMITY SWELLING. PT HAS HX OF COPD RESP FAILURE. PT WAS STARTED ON IV ATBX, IV LASIX WITH TODD CATH WITH STRICT I & OS. PT REPORTS PAIN IN RIGHT KNEE, CT OBTAINED REVEALED TIBIAL PLATEAU FRACTURE. PT REFUSED KNEE IMMBOLIZER, PAIN CONTROL AT THIS TIME AND DISCUSSED OUTPT ORTHO REFERRAL. PT HAD DIFFUSE JOINT EFFUSION WITH CO MEDIAL AND LATERAL TENDERNESS. MRI OBTAINED, REPORT PENDING. PT HAD NOT COLLECTED SPUTUM AT THIS TIME. CURRENTLY ON DUO NEBS WITH SUPPLEMENTAL O2,. REPEAT SOLU MEDROL DUE TO DIFFUSE WHEEZING ON EXAM, IMPROVING LOWER EXTREMITY EDEMA - Past Medical Family Social History Past Med/Fam/Surg Hx: No changes since H&P Allergies: Allergies ketorolac [From Toradol] Allergy (Verified 03/29/19 17:55) nalbuphine [From Nubain] Allergy (Verified 03/29/19 17:55) Penicillins Allergy (Verified 03/29/19 17:55) Sulfa (Sulfonamide Antibiotics) [SULFA] Allergy (Verified 03/29/19 17:55) BETA BLOCKERS Allergy (Uncoded 03/29/19 17:55) - Review of Systems ROS: No change since H&P - Vital Signs and I&O's Vital Signs: Temperature 98.1 F Pulse Rate [Left Brachial] 70 Pulse Rate 74 Respiratory Rate 20 Blood Pressure [Left Arm] 141/67 Blood Pressure [Right Arm] 146/67 Blood Pressure 125/60 O2 Sat by Pulse Oximetry 95 Intake and Output: Intake & Output 04/28/19 04/29/19 04/30/19 05/01/19 11:59 11:59 11:59 11:59 Intake Total 2480 / 2480 3020 / 3020 3090 / 3090 1060 / 1060 Output Total 3450 / 3450 1350 / 1350 4350 / 4350 2100 / 2100 Balance -970 / -970 1670 / 1670 -1260 / -1260 -1040 / -1040 - Physical Exam Oriented: Normal Eyes: Normal Ear: Normal Nose: Normal Throat: Normal Respiratory: Diminished, Wheezes, Rhonchi Cardiovascular: Normal, Edema : Normal Auscultation: Bowel Sounds: Normal Tenderness: Normal Skin: Decreased Turgur Musculoskeletal: Right, Left, Knee, Leg, Back:Thoracic, Back:Lumbar, Swelling, Tender, Motor Deficit Psychiatric: Anxiety Affect: Anxious Speech Pattern: Clear, Appropriate - Laboratory and Diagnostics Result Diagrams: 04/30/19 04:36 04/30/19 04:36 Labs: Laboratory WBC 9.6 X10^3/uL (3.6-10.0) 04/30/19 04:36 RBC 3.82 X10^6/uL (3.5-5.4) 04/30/19 04:36 Hgb 12.0 g/dL (12.0-16.0) 04/30/19 04:36 Hct 35.2 % (36.0-47.0) L 04/30/19 04:36 MCV 92.2 fL (80.0-100.0) 04/30/19 04:36 MCH 31.4 pg (27.0-34.0) 04/30/19 04:36 MCHC 34.0 g/dL (33.0-35.0) 04/30/19 04:36 RDW 13.6 % (11.6-16.5) 04/30/19 04:36 Plt Count 253 X10^3/uL (150.0-450.0) 04/30/19 04:36 MPV 8.0 fL (7.4-11.0) 04/30/19 04:36 Neut % (Auto) 76.6 % (42.0-75.0) H 04/30/19 04:36 Lymph % (Auto) 15.4 % (21.0-51.0) L 04/30/19 04:36 [place] % (Auto) 7.7 % (0.0-13.0) 04/30/19 04:36 Eos % (Auto) 0.2 % (0.9-2.9) L 04/30/19 04:36 Baso % (Auto) 0.1 % (0.2-1.0) L 04/30/19 04:36 Neut # (Auto) 7.3 x10^3/uL (2.2-4.8) H 04/30/19 04:36 Lymph # (Auto) 1.5 X10^3/uL (1.3-2.9) 04/30/19 04:36 [place] # (Auto) 0.7 x10^3/uL (0.3-0.8) 04/30/19 04:36 Eos # (Auto) 0.0 x10^3/uL (0.0-0.2) 04/30/19 04:36 Baso # (Auto) 0.0 X10^3/uL (0.0-0.1) 04/30/19 04:36 Absolute Nucleated RBC 0.1 /100WBC 04/30/19 04:36 Sample Site Lr 04/26/19 14:35 ABG pH 7.430 (7.35-7.45) 04/26/19 14:35 ABG pCO2 63.0 mmHg (35.0-45.0) H* 04/26/19 14:35 ABG pO2 54.0 mmHg (80.0-100.0) L 04/26/19 14:35 ABG HCO3 41.8 mmol/L (22-26) H* 04/26/19 14:35 ABG O2 Saturation 89.0 % (90-100) L 04/26/19 14:35 ABG Base Excess 14.7 mmol/L (-2.0-2.0) H 04/26/19 14:35 Sameer Test Pos 04/26/19 14:35 A-a Gradient 95.0 mmHg 04/26/19 14:35 FiO2 32.0 04/26/19 14:35 Blood Gas Comments Pt baltazar well. cdn 04/26/19 14:35 Sodium 136 mmol/L (136-145) 04/30/19 04:36 Corrected Sodium TNP 04/30/19 04:36 Potassium 3.9 mmol/L (3.5-5.1) 04/30/19 04:36 Chloride 98 mmol/L (98-107) 04/30/19 04:36 Carbon Dioxide 32.1 mmol/L (21-32) H 04/30/19 04:36 BUN 47 mg/dL (7-18) H 04/30/19 04:36 Creatinine 1.30 mg/dL (0.55-1.02) H 04/30/19 04:36 Est GFR (MDRD) Af Amer 53 (>60) L 04/30/19 04:36 Est GFR (MDRD) Non-Af 44 (>60) L 04/30/19 04:36 Glucose 97 mg/dL (65-99) 04/30/19 04:36 Calcium 8.7 mg/dL (8.5-10.1) 04/30/19 04:36 Corrected Calcium 9.4 mg/dL (8.5-10.1) 04/30/19 04:36 Iron 98 ug/dL (50-175) 04/28/19 04:38 Transferrin 291 mg/dL (202-364) 04/28/19 04:38 Ferritin 655 ng/mL (8-252) H 04/28/19 04:38 Total Bilirubin 0.40 mg/dL (0.2-1.0) 04/30/19 04:36 AST 66 Units/L (15-37) H 04/30/19 04:36 ALT 108 Units/L (12-78) H 04/30/19 04:36 Alkaline Phosphatase 103 Units/L (46-116) 04/30/19 04:36 Ammonia < 10 umol/L (11-32) L 04/28/19 09:37 Creatine Kinase 35 Units/L (26-192) 04/26/19 11:30 CK-MB (CK-2) < 1.0 ng/mL (0-4.0) 04/26/19 11:30 CK/CKMB % Calc 2.9 % (<4) 04/26/19 11:30 Troponin I < 0.02 ng/mL (0-1.5) 04/26/19 11:30 B-Natriuretic Peptide 61.7 pg/mL (0-79) 04/26/19 11:30 Total Protein 7.1 g/dL (6.4-8.2) 04/30/19 04:36 Albumin 3.1 g/dL (3.4-5.0) L 04/30/19 04:36 Globulin 4.0 g/dL (2.5-4.5) 04/30/19 04:36 Albumin/Globulin Ratio 0.8 Ratio (1.1-2.1) L 04/30/19 04:36 Amylase 43 Units/L (25-115) 04/28/19 09:37 Lipase 80 Units/L (73-393) 04/28/19 09:37 Vitamin B12 559 pg/mL (193-986) 04/28/19 04:38 Folate 11.5 ng/mL (>8.6) 04/28/19 04:38 Specimen Type Catherized urine 04/26/19 12:18 Urine Color Yellow (YELLOW) 04/26/19 12:18 Urine Appearance Clear (CLEAR) 04/26/19 12:18 Urine pH 6.5 (5.0 - 8.0) 04/26/19 12:18 Ur Specific [place] 1.010 (1.000-1.030) 04/26/19 12:18 Urine Protein 2+ (NEGATIVE) 04/26/19 12:18 Urine Glucose (UA) Negative (NEGATIVE) 04/26/19 12:18 Urine Ketones Negative (NEGATIVE) 04/26/19 12:18 Urine Occult Blood 4+ (NEGATIVE) 04/26/19 12:18 Urine Nitrite Negative (NEGATIVE) 04/26/19 12:18 Urine Bilirubin Negative (NEGATIVE) 04/26/19 12:18 Urine Urobilinogen Normal (NORMAL) 04/26/19 12:18 Ur Leukocyte Esterase Negative (NEGATIVE) 04/26/19 12:18 Urine RBC 5-10 /HPF (0-3) A 04/26/19 12:18 Urine WBC 0-2 /HPF (0-5) 04/26/19 12:18 Ur Squamous Epith Cells Few /HPF (NEGATIVE) 04/26/19 12:18 Urine Bacteria Trace /HPF (NEGATIVE) 04/26/19 12:18 Urine Mucus Few /HPF (NEGATIVE) 04/26/19 12:18 Ur Culture Indicated? No/not indicated 04/26/19 12:18 Influenza Type A (PCR) Negative (NEGATIVE) 04/26/19 11:47 Influenza Type B (PCR) Negative (NEGATIVE) 04/26/19 11:47 - Plan (1) SOB (shortness of breath) Status: Acute Plan: SUPPLEMENTAL O2. TODD CATH, STRICT I&OS. IV LASIX, RESP THERAPY, ABG ON ADMISSION. RESUME HOME MEDICATION, DUO NEBS, SPUTUM CULTURE (2) COPD exacerbation Status: Acute (3) CHF (congestive heart failure) Status: Acute Qualifiers: Heart failure chronicity: chronic (4) Hypertension Status: Chronic (5) Knee pain, right Status: Acute Plan: CT RIGHT KNEE OBTAINED, MRI RIGHT ORDERED, CONTINUE PAIN CONROL. KNEE IMMOBILIZER
[2019-04-30] MEDS: REQUIP PO SCH (21:57)
[2019-04-30] MEDS: AMBIEN PO PRN (21:58)
[2019-05-01] MEDS: DUONEB 0.5 MG/3 MG NEB SCH ×4 (00:40→17:19)
[2019-05-01] MEDS ORDERED: NS 1/2 1000 ML IV 1,000 ML IV ONE (04:36)
[2019-05-01 06:13] LABS: BASOPHILS % (AUTO) 0.1 % (0.2-1.0); EOSINOPHILS % (AUTO) 0.1 % (0.9-2.9); HEMATOCRIT 37.9 % (36.0-47.0); HEMOGLOBIN 12.5 g/dL (12.0-16.0); LYMPHOCYTES # (AUTO) 1.3 X10^3/uL (1.3-2.9); LYMPHOCYTES % (AUTO) 10.8 % (21.0-51.0); MEAN CORPUSCULAR HEMOGLOBIN 30.6 pg (27.0-34.0); MEAN CORPUSCULAR HGB CONC 33.1 g/dL (33.0-35.0); MEAN CORPUSCULAR VOLUME 92.7 fL (80.0-100.0); MEAN PLATELET VOLUME 8.1 fL (7.4-11.0); MONOCYTES # (AUTO) 0.6 x10^3/uL (0.3-0.8); NEUTROPHILS # (AUTO) 9.9 x10^3/uL (2.2-4.8); PLATELET COUNT 279 X10^3/uL (150.0-450.0); RED BLOOD COUNT 4.09 X10^6/uL (3.5-5.4); RED CELL DISTRIBUTION WIDTH 13.7 % (11.6-16.5); WHITE BLOOD COUNT 11.8 X10^3/uL (3.6-10.0)
[2019-05-01 06:37] LABS: ALANINE AMINOTRANSFERASE 93 Units/L (12-78); ALBUMIN 3.4 g/dL (3.4-5.0); ALKALINE PHOSPHATASE 109 Units/L (46-116); ASPARTATE AMINO TRANSFERASE 52 Units/L (15-37); BLOOD UREA NITROGEN 55 mg/dL (7-18); CALCIUM 8.8 mg/dL (8.5-10.1); CARBON DIOXIDE 31.9 mmol/L (21-32); CHLORIDE 95 mmol/L (98-107); COR NA(FOR HYPERGLY) 137 mmol/L (136-145); CREATININE 1.47 mg/dL (0.55-1.02); SODIUM 136 mmol/L (136-145); TOTAL PROTEIN 7.7 g/dL (6.4-8.2); eGFR NON BLACK RACES 38 (>60)
[2019-05-01 09:31] LABS: ABG BASE EXCESS 12.1 mmol/L (-2.0-2.0)
[2019-05-01 09:33] LABS: ABG ALLEN TEST POS; ABG HCO3 36.7 mmol/L (22-26)
[2019-05-01] MEDS: ZITHROMAX INJ 500 MG VIAL 500 MG in NS 250 ML IV 250 ML IV SCH (09:35)
[2019-05-01] MEDS: CREON PO SCH ×3 (09:38→17:06)
[2019-05-01] MEDS: PROTONIX TAB 40 MG PO SCH (09:50)
[2019-05-01] MEDS: ROBITUSSIN DM PO SCH ×4 (09:50→20:37)
[2019-05-01] MEDS: PERCOCET TAB 5/325 MG PO PRN ×2 (09:50→17:11)
[2019-05-01] MEDS: CHRONULAC PO SCH ×2 (09:50→09:58)
[2019-05-01] MEDS: CITRACAL + VITAMIN D PO SCH (09:50)
[2019-05-01] MEDS: TUSSIONEX PENNKINETIC SUSP PO PRN ×2 (09:52→21:07)
[2019-05-01] MEDS: CARDIZEM CD 120 MG PO SCH (09:52)
[2019-05-01] MEDS: XANAX PO PRN ×2 (09:52→21:07)
[2019-05-01] MEDS: LASIX IVP SCH (09:53)
[2019-05-01] MEDS: LOVENOX INJ 30 MG SYR SC SCH (09:53)
[2019-05-01] MEDS: NS 1/2 1000 ML IV 1,000 ML IV SCH (09:55)
[2019-05-01] MEDS: NEURONTIN TAB 600 MG PO PRN (10:01)
[2019-05-01] MEDS: ALDACTONE TAB 25 MG PO SCH (15:44)
[2019-05-01] MEDS: REQUIP PO SCH (20:36)
[2019-05-01] MEDS: AMBIEN PO PRN (20:38)
[2019-05-01] MEDS: NEURONTIN CAP 300 MG PO SCH (21:06)
[2019-05-02] MEDS: DUONEB 0.5 MG/3 MG NEB SCH ×3 (00:21→12:09)
[2019-05-02] MEDS: PERCOCET TAB 5/325 MG PO PRN ×2 (02:07→09:37)
[2019-05-02 05:30] LABS: BASOPHILS % (AUTO) 0.1 % (0.2-1.0); EOSINOPHILS # (AUTO) 0.2 x10^3/uL (0.0-0.2); EOSINOPHILS % (AUTO) 1.7 % (0.9-2.9); HEMATOCRIT 36.7 % (36.0-47.0); LYMPHOCYTES # (AUTO) 2.4 X10^3/uL (1.3-2.9); MEAN CORPUSCULAR HEMOGLOBIN 30.6 pg (27.0-34.0); MEAN CORPUSCULAR HGB CONC 32.8 g/dL (33.0-35.0); MEAN CORPUSCULAR VOLUME 93.4 fL (80.0-100.0); MONOCYTES # (AUTO) 0.8 x10^3/uL (0.3-0.8); MONOCYTES % (AUTO) 6.9 % (0.0-13.0); NEUTROPHILS # (AUTO) 8.5 x10^3/uL (2.2-4.8); NEUTROPHILS % (AUTO) 71.3 % (42.0-75.0); PLATELET COUNT 287 X10^3/uL (150.0-450.0); RED BLOOD COUNT 3.93 X10^6/uL (3.5-5.4); RED CELL DISTRIBUTION WIDTH 13.9 % (11.6-16.5); WHITE BLOOD COUNT 11.9 X10^3/uL (3.6-10.0)
[2019-05-02] MEDS: NEURONTIN CAP 300 MG PO SCH ×2 (05:45→13:05)
[2019-05-02 05:52] LABS: ALANINE AMINOTRANSFERASE 72 Units/L (12-78); ALBUMIN 3.2 g/dL (3.4-5.0); ALKALINE PHOSPHATASE 108 Units/L (46-116); ASPARTATE AMINO TRANSFERASE 28 Units/L (15-37); BLOOD UREA NITROGEN 56 mg/dL (7-18); CALCIUM 8.5 mg/dL (8.5-10.1); CARBON DIOXIDE 33.2 mmol/L (21-32); CHLORIDE 100 mmol/L (98-107); COR CA(FOR HYPOALB) 9.1 mg/dL (8.5-10.1); CREATININE 1.37 mg/dL (0.55-1.02); SODIUM 139 mmol/L (136-145); eGFR NON BLACK RACES 41 (>60)
[2019-05-02] MEDS: CREON PO SCH ×2 (06:08→12:31)
[2019-05-02] MEDS: ROBITUSSIN DM PO SCH ×2 (09:34→12:32)
[2019-05-02] MEDS: PROTONIX TAB 40 MG PO SCH (09:35)
[2019-05-02] MEDS: CITRACAL + VITAMIN D PO SCH (09:35)
[2019-05-02] MEDS: TUSSIONEX PENNKINETIC SUSP PO PRN (09:35)
[2019-05-02] MEDS: XANAX PO PRN (09:36)
[2019-05-02] MEDS: ZITHROMAX INJ 500 MG VIAL 500 MG in NS 250 ML IV 250 ML IV SCH (09:36)
[2019-05-02] MEDS: ALDACTONE TAB 25 MG PO SCH (09:36)
[2019-05-02] MEDS: CARDIZEM CD 120 MG PO SCH (09:36)
[2019-05-02] MEDS: CHRONULAC PO SCH (09:38)
[2019-05-02] MEDS: LOVENOX INJ 30 MG SYR SC SCH (09:38)
[2019-05-02] MEDS: NS 1/2 1000 ML IV 1,000 ML IV SCH (09:39)
[2019-05-02 12:11] VITALS: BP 134/64
== END 2019-05-02 14:20 | disposition home or self-care (01) | DRG 191 ==
LOC: ER 10:57 → MED/SURG 10:57 → OBSVTOIN 12:57 → MED/SURG 13:56
PROVIDERS: ADMIT Internal Medicine; ATTEND Internal Medicine
DX: Z99.81 Dependence on supplemental oxygen; R39.198 Other difficulties with micturition; S82.141A Displaced bicondylar fracture of right tibia, initial encounter for closed fracture; K86.1 Other chronic pancreatitis; F44.4 Conversion disorder with motor symptom or deficit; J44.1 Chronic obstructive pulmonary disease with (acute) exacerbation; E66.01 Morbid (severe) obesity due to excess calories; Y92.9 Unspecified place or not applicable; W19.XXXA Unspecified fall, initial encounter; I50.9 Heart failure, unspecified; J96.10 Chronic respiratory failure, unspecified whether with hypoxia or hypercapnia
CPT/HCPCS: 36415; 36591; 36600; 51702; 71010; 71045; 73700; 73721; 80053; 81001; 82140; 82150; 82550; 82553; 82607; 82728; 82746; 82803; 83540; 83690; 83880; 84466; 84484; 85025; 87502; 94640; 94760; 96365; 96374; 97163; 99284; A4222; Q0169; J0456; J1642; J1650; J1940; J2920; J2930; J7030; J7050; J7620; S0119; S0181

== ENCOUNTER 2019-06-26 13:26 | Inpatient (IN) ==
[2019-06-26 13:34] VITALS: BMI 42.7
[2019-06-26] MEDS ORDERED: DUONEB 0.5 MG/3 MG NEB ONE (14:07)
[2019-06-26] MEDS ORDERED: SOLU-Medrol 125 MG VIAL IVP ONE (14:07)
[2019-06-26] MEDS ORDERED: DUONEB 0.5 MG/3 MG ONE (14:11)
[2019-06-26] MEDS ORDERED: SOLU-Medrol 125 MG VIAL ONE (14:12)
[2019-06-26 14:25] LABS: BASOPHILS # (AUTO) 0.1 X10^3/uL (0.0-0.1); EOSINOPHILS # (AUTO) 0.4 x10^3/uL (0.0-0.2); EOSINOPHILS % (AUTO) 4.4 % (0.9-2.9); HEMATOCRIT 35.2 % (36.0-47.0); HEMOGLOBIN 11.8 g/dL (12.0-16.0); LYMPHOCYTES # (AUTO) 2.1 X10^3/uL (1.3-2.9); LYMPHOCYTES % (AUTO) 22.1 % (21.0-51.0); MEAN CORPUSCULAR HEMOGLOBIN 31.5 pg (27.0-34.0); MEAN CORPUSCULAR HGB CONC 33.5 g/dL (33.0-35.0); MEAN CORPUSCULAR VOLUME 93.8 fL (80.0-100.0); MEAN PLATELET VOLUME 8.4 fL (7.4-11.0); MONOCYTES # (AUTO) 0.9 x10^3/uL (0.3-0.8); MONOCYTES % (AUTO) 9.9 % (0.0-13.0); NEUTROPHILS % (AUTO) 62.6 % (42.0-75.0); PLATELET COUNT 306 X10^3/uL (150.0-450.0); RED BLOOD COUNT 3.75 X10^6/uL (3.5-5.4); RED CELL DISTRIBUTION WIDTH 13.7 % (11.6-16.5); WHITE BLOOD COUNT 9.5 X10^3/uL (3.6-10.0)
--- NOTE | 2019-06-26 14:26 | DR.GENAD ---
HPI Time Seen Time Seen by Provider: 06/26/19 14:06 PCP Primary Care Physician: serjio Complaint/Symptoms Chief Complaint Doctors Comments: A 64 y/o female presenting with dyspnea since 0230 hrs. this morning. She has repeated doses of her home neb. treatments. She also states that her feet her swollen. She denies C/P. Chief Complaint:: ems brought patient in the er saying she thought she has pneumonia. pt stated she has been swelling and the 4 to 6 lasix pills she takes per days does not help. Nurses notes reviewed Nurses Notes Review: Yes Source History Provided: Patient Mode of Arrival Mode of Arrival: Ambulatory Timing Onset of Chief Complaint: 06/26/19 Duration How lon Duration: Hours PMH PMH Past Medical History: Yes Past Medical History: Anemia, Anxiety, Arthritis, CHF, COPD, Coronary Artery Disease, Diabetes, GERD, Hypertension and Renal Disease Past Surgical History: Yes Surgical History: Appendectomy and Cholecystectomy Family History History of Family Medical Conditions: Yes Family Medical History: Diabetes Mellitus and Hypertension Social History Does patient currently use any type of tobacco product: No Have you used tobacco products in the last 12 months: No Type of Tobacco Use: None Does any household member use tobacco: No Alcohol Use: None Do you use any recreational Drugs:: No Lives With: Family Lives Where: Home infectious screening In the last 2 months have you had wt loss of >10#?: NO Have you had fever, night sweats or hemotysis?: No Have you traveled outside the country in the last 6 months?: No Isolation: Standard ROS Review of Systems Constitutional: No Symptoms Reported Eyes: No Symptoms Reported ENTM: No Symptoms Reported Respiratoy: Short of Breath Cardiovascular: Edema (legs); negative See HPI, Chest Pain, Palpitations, Syncope, Cyanosis and Skin Mottling Gastrointestinal/Abdominal: No Symptoms Reported Genitourinary: No Symptoms Reported Neurological: No Symptoms Reported Musculoskeletal: No Symptoms Reported Integumentary: No Symptoms Reported Hematologic/Lymphatic: No Symptoms Reported Endocrine: No Symptoms Reported Psychiatric: No Symptoms Reported PE Vital Signs Vitals: Temperature 98.6 F Pulse Rate 101 Respiratory Rate 16 Blood Pressure [Left Arm] 111/53 Blood Pressure [Right Arm] 134/64 Blood Pressure 113/54 O2 Sat by Pulse Oximetry 89 General Limitations: No Limitations General Appearance: Alert, In No Apparent Distress and Obese Head Head Exam: Normal Inspection, Atraumatic and Normocephalic Eyes Eye exam: Normal Appearance ENT ENT Exam: Normal Exam Neck Neck Exam: Normal Inspection, Full ROM and Trachea Midline Chest Chest Inspection: Normal Inspection and Symmetric Chest Wall Rise Respiratory Respiratory Exam: Bilateral: Wheezing, Upper: Wheezing and Lower: Wheezing Cardiovascular Cardiovascular Exam: Regular Rate, Normal Rhythm, Normal Heart Sounds, +S1 and +S2 Abdominal Exam Abdominal Exam: Normal Inspection, Normal Bowel Sounds and Soft Extremities Extremities Exam: Edema (both feet) Back Back Exam: Normal Inspection Neurologic Neurological Exam: Alert and Oriented X3 Psychiatric Psychiatric Exam: Normal Affect and Normal Mood Skin Skin Exam: Dry and Normal Color COURSE Reevaluation 1st: Improved Consultation Consultation Comments: I discussed her presentation and findings with Dr. LYNN, he agrees to her being admitted for further care. Education/Counseling Education/Counseling: Patient, Education and Counseling Educated On: Treatment, Diagnosis, Prognosis and Needs for Follow Up ROR Labs Reviewed Laboratory Results Reviewed?: Yes Result Diagrams: 06/26/19 14:18 06/26/19 14:18 Laboratory: WBC 9.5 X10^3/uL (3.6-10.0) 06/26/19 14:18 RBC 3.75 X10^6/uL (3.5-5.4) 06/26/19 14:18 Hgb 11.8 g/dL (12.0-16.0) L 06/26/19 14:18 Hct 35.2 % (36.0-47.0) L 06/26/19 14:18 MCV 93.8 fL (80.0-100.0) 06/26/19 14:18 MCH 31.5 pg (27.0-34.0) 06/26/19 14:18 MCHC 33.5 g/dL (33.0-35.0) 06/26/19 14:18 RDW 13.7 % (11.6-16.5) 06/26/19 14:18 Plt Count 306 X10^3/uL (150.0-450.0) 06/26/19 14:18 MPV 8.4 fL (7.4-11.0) 06/26/19 14:18 Neut % (Auto) 62.6 % (42.0-75.0) 06/26/19 14:18 Lymph % (Auto) 22.1 % (21.0-51.0) 06/26/19 14:18 [place] % (Auto) 9.9 % (0.0-13.0) 06/26/19 14:18 Eos % (Auto) 4.4 % (0.9-2.9) H 06/26/19 14:18 Baso % (Auto) 1.0 % (0.2-1.0) 06/26/19 14:18 Neut # (Auto) 6.0 x10^3/uL (2.2-4.8) H 06/26/19 14:18 Lymph # (Auto) 2.1 X10^3/uL (1.3-2.9) 06/26/19 14:18 [place] # (Auto) 0.9 x10^3/uL (0.3-0.8) H 06/26/19 14:18 Eos # (Auto) 0.4 x10^3/uL (0.0-0.2) H 06/26/19 14:18 Baso # (Auto) 0.1 X10^3/uL (0.0-0.1) 06/26/19 14:18 Absolute Nucleated RBC 0.0 /100WBC 06/26/19 14:18 Sample Site Lrad 06/26/19 16:42 ABG pH 7.440 (7.35-7.45) 06/26/19 16:42 ABG pCO2 69.0 mmHg (35.0-45.0) H* 06/26/19 16:42 ABG pO2 60.0 mmHg (80.0-100.0) L 06/26/19 16:42 ABG HCO3 46.9 mmol/L (22-26) H* 06/26/19 16:42 ABG O2 Saturation 92.0 % (90-100) 06/26/19 16:42 ABG Base Excess 19.1 mmol/L (-2.0-2.0) H 06/26/19 16:42 Sameer Test Pos 06/26/19 16:42 A-a Gradient 68.0 mmHg 06/26/19 16:42 FiO2 30.0 06/26/19 16:42 Blood Gas Comments Pt baltazar well elj 06/26/19 16:42 Sodium 142 mmol/L (136-145) 06/26/19 14:18 Corrected Sodium TNP 06/26/19 14:18 Potassium 3.3 mmol/L (3.5-5.1) L 06/26/19 14:18 Chloride 96 mmol/L (98-107) L 06/26/19 14:18 Carbon Dioxide 42.7 mmol/L (21-32) H* 06/26/19 14:18 BUN 20 mg/dL (7-18) H 06/26/19 14:18 Creatinine 1.56 mg/dL (0.55-1.02) H 06/26/19 14:18 Est GFR (MDRD) Af Amer 43 (>60) L 06/26/19 14:18 Est GFR (MDRD) Non-Af 35 (>60) L 06/26/19 14:18 Glucose 87 mg/dL (65-99) 06/26/19 14:18 Calcium 9.2 mg/dL (8.5-10.1) 06/26/19 14:18 Corrected Calcium TNP 06/26/19 14:18 Total Bilirubin 0.40 mg/dL (0.2-1.0) 06/26/19 14:18 AST 27 Units/L (15-37) 06/26/19 14:18 ALT 26 Units/L (12-78) 06/26/19 14:18 Alkaline Phosphatase 133 Units/L (46-116) H 06/26/19 14:18 Total Protein 8.0 g/dL (6.4-8.2) 06/26/19 14:18 Albumin 3.4 g/dL (3.4-5.0) 06/26/19 14:18 Globulin 4.6 g/dL (2.5-4.5) H 06/26/19 14:18 Albumin/Globulin Ratio 0.7 Ratio (1.1-2.1) L 06/26/19 14:18 XRAY XRAY Interpreted by: Radiologist XRAY Findings: CXR: Mild bisasilar subsegmental atelectasis. Opioid Opioid Risk Tool Age (Jann box if 16-45): No History of Preadolescent Sexual Abuse: No Total: 0 Total Score Risk Category: Low Risk Copyright: Alexis ROJAS predicting aberrant behaviors Diagnosis Discharge Problem: COPD exacerbation, Hypokalemia, Pedal edema, CKD (chronic kidney disease) stage 3, GFR 30-59 ml/min, DHARA (generalized anxiety disorder) Hypertension Qualifiers: Hypertension type: essential hypertension Qualified Code(s): I10 - Essential (primary) hypertension GERD (gastroesophageal reflux disease) Qualifiers: Esophagitis presence: esophagitis presence not specified Qualified Code(s): K21.9 - Gastro-esophageal reflux disease without esophagitis
--- NOTE | 2019-06-26 14:27 | RAD ---
History: Dyspnea Study: Portable AP chest Comparison: April 30, 2019 Findings: There is mild linear horizontal density at the lung bases not present previously. The heart is mildly enlarged. There is no pleural effusion evident.. There is an unchanged brock venous catheter via the right subclavian vein. No pleural effusion is suggested. The upper lobes are clear. Impression: Mild bibasilar subsegmental atelectasis Reported By:
[2019-06-26 14:32] LABS: BLOOD UREA NITROGEN 20 mg/dL (7-18); CALCIUM 9.2 mg/dL (8.5-10.1); CHLORIDE 96 mmol/L (98-107); CREATININE 1.56 mg/dL (0.55-1.02); SODIUM 142 mmol/L (136-145); eGFR NON BLACK RACES 35 (>60)
[2019-06-26 14:37] LABS: ALANINE AMINOTRANSFERASE 26 Units/L (12-78); ALBUMIN 3.4 g/dL (3.4-5.0); ALKALINE PHOSPHATASE 133 Units/L (46-116); ASPARTATE AMINO TRANSFERASE 27 Units/L (15-37)
[2019-06-26 14:38] LABS: CARBON DIOXIDE 42.7 mmol/L (21-32)
[2019-06-26 14:42] LABS: ABG ALLEN TEST POS; ABG BASE EXCESS 21.3 mmol/L (-2.0-2.0); ABG HCO3 49.3 mmol/L (22-26)
[2019-06-26] MEDS ORDERED: ATIVAN INJ 2 MG VIAL IVP ONE (15:00)
[2019-06-26] MEDS ORDERED: ATIVAN INJ 2 MG VIAL ONE (15:07)
[2019-06-26] MEDS ORDERED: LASIX IVP ONE (16:04)
[2019-06-26 16:50] LABS: ABG ALLEN TEST POS; ABG BASE EXCESS 19.1 mmol/L (-2.0-2.0); ABG HCO3 46.9 mmol/L (22-26)
[2019-06-26] MEDS ORDERED: DUONEB 0.5 MG/3 MG IN PRN (18:21)
[2019-06-26] MEDS ORDERED: PATIENT'S HOME MEDICATION (Oxycodone-Acetaminophen [Percocet] 1 TAB) PO PRN (18:21)
[2019-06-26] MEDS ORDERED: PHENERGAN TAB 25 MG PO PRN (18:21)
[2019-06-26] MEDS ORDERED: REFLEX: PROVENTIL NEB & PulmiCORT NEB~ NEB SCH (18:21)
[2019-06-26] MEDS: PROVENTIL NEB TX 0.083% 2.5MG/ 3ML NEB SCH (18:29)
[2019-06-26 19:31] LABS: ABG BASE EXCESS 17.3 mmol/L (-2.0-2.0)
[2019-06-26 19:32] LABS: ABG ALLEN TEST POS; ABG HCO3 44.5 mmol/L (22-26)
[2019-06-26] MEDS: PULMICORT NEB TX 0.5 MG NEB SCH (20:10)
[2019-06-26] MEDS: XANAX PO PRN (20:23)
[2019-06-26] MEDS: REGLAN TAB 10 MG PO SCH (20:23)
[2019-06-26] MEDS ORDERED: REQUIP PO SCH (21:00)
[2019-06-26] MEDS ORDERED: ZyrTEC TAB 10 MG PO SCH (21:00)
[2019-06-26] MEDS ORDERED: SINGULAIR TAB 10 MG PO SCH (21:00)
[2019-06-26] MEDS: SOLU-Medrol 40 MG VIAL IVP SCH (21:29)
[2019-06-26] MEDS: NEURONTIN TAB 600 MG PO SCH (21:29)
[2019-06-26] MEDS: ZOFRAN TAB 4 MG PO SCH (21:29)
[2019-06-26] MEDS: LASIX IVP SCH (23:08)
[2019-06-27] MEDS: PROVENTIL NEB TX 0.083% 2.5MG/ 3ML NEB SCH ×4 (00:40→17:15)
[2019-06-27] MEDS ORDERED: PERCOCET TAB 5/325 MG ONE (00:42)
[2019-06-27] MEDS: PERCOCET TAB 5/325 MG PO PRN ×2 (00:48→09:42)
[2019-06-27 02:14] LABS: BILIRUBIN,URINE NEGATIVE (NEGATIVE); BLOOD/HEMOGLOBIN,URINE 3+ (NEGATIVE); GLUCOSE, URINE NEGATIVE (NEGATIVE); KETONES,URINE NEGATIVE (NEGATIVE); LEUKOCYTE ESTERASE ,URINE 3+ (NEGATIVE); NITRITES,URINE POSITIVE (NEGATIVE); PROTEIN,URINE 1+ (NEGATIVE); UROBILINOGEN,URINE NORMAL (NORMAL)
[2019-06-27 02:16] LABS: APPEARANCE,URINE CLOUDY (CLEAR); COLOR,URINE YELLOW (YELLOW)
[2019-06-27 02:19] LABS: BACTERIA,URINE 2+ /HPF (NEGATIVE); RENAL EPITHELIAL CELLS,URINE FEW /HPF (NEGATIVE); SQUAMOUS EPITHELIAL CELL,UR FEW /HPF (NEGATIVE)
[2019-06-27 05:22] LABS: BASOPHILS % (AUTO) 0.3 % (0.2-1.0); EOSINOPHILS % (AUTO) 0.1 % (0.9-2.9); HEMATOCRIT 34.2 % (36.0-47.0); HEMOGLOBIN 11.4 g/dL (12.0-16.0); LYMPHOCYTES # (AUTO) 0.8 X10^3/uL (1.3-2.9); LYMPHOCYTES % (AUTO) 11.1 % (21.0-51.0); MEAN CORPUSCULAR HEMOGLOBIN 31.2 pg (27.0-34.0); MEAN CORPUSCULAR HGB CONC 33.2 g/dL (33.0-35.0); MEAN CORPUSCULAR VOLUME 93.8 fL (80.0-100.0); MEAN PLATELET VOLUME 8.9 fL (7.4-11.0); MONOCYTES # (AUTO) 0.1 x10^3/uL (0.3-0.8); MONOCYTES % (AUTO) 1.9 % (0.0-13.0); NEUTROPHILS # (AUTO) 6.6 x10^3/uL (2.2-4.8); NEUTROPHILS % (AUTO) 86.6 % (42.0-75.0); PLATELET COUNT 257 X10^3/uL (150.0-450.0); RED BLOOD COUNT 3.64 X10^6/uL (3.5-5.4); RED CELL DISTRIBUTION WIDTH 13.9 % (11.6-16.5); WHITE BLOOD COUNT 7.6 X10^3/uL (3.6-10.0)
[2019-06-27 05:38] LABS: ALBUMIN 3.1 g/dL (3.4-5.0); CALCIUM 8.8 mg/dL (8.5-10.1); CARBON DIOXIDE 37.7 mmol/L (21-32); COR CA(FOR HYPOALB) 9.5 mg/dL (8.5-10.1); CREATININE 1.85 mg/dL (0.55-1.02); TOTAL PROTEIN 7.9 g/dL (6.4-8.2)
[2019-06-27] MEDS: ZOFRAN TAB 4 MG PO SCH ×2 (05:47→14:52)
[2019-06-27] MEDS: SOLU-Medrol 40 MG VIAL IVP SCH (05:47)
[2019-06-27] MEDS: NEURONTIN TAB 600 MG PO SCH ×2 (05:47→14:51)
[2019-06-27] MEDS ORDERED: SYNTHROID 25 mcg TAB PO SCH (07:00)
[2019-06-27] MEDS ORDERED: PROTONIX TAB 40 MG PO SCH (09:00)
[2019-06-27] MEDS ORDERED: CARDIZEM CD 120 MG 24-HR PO SCH (09:00)
[2019-06-27] MEDS ORDERED: MICRO K EXTEN CAP 10 MEQ PO SCH (09:00)
[2019-06-27] MEDS ORDERED: MIRALAX POWDER (1 DOSE 17 G) PO SCH (09:00)
[2019-06-27] MEDS: PULMICORT NEB TX 0.5 MG NEB SCH (09:14)
[2019-06-27] MEDS: LASIX IVP SCH (09:23)
[2019-06-27] MEDS: REGLAN TAB 10 MG PO SCH (09:25)
[2019-06-27] MEDS: LIPASE PROTEASE AMYLASE PO SCH ×2 (09:29→18:02)
[2019-06-27] MEDS: XANAX PO PRN ×2 (13:12→18:23)
[2019-06-27 15:27] LABS: ABG BASE EXCESS 15.4 mmol/L (-2.0-2.0)
[2019-06-27 15:28] LABS: ABG HCO3 41.2 mmol/L (22-26)
[2019-06-27] MEDS ORDERED: HEPARIN SODIUM INJ 5000 UNITS ONE (18:03)
[2019-06-27 18:46] VITALS: BP 103/56
== END 2019-06-27 19:45 | disposition home or self-care (01) | DRG 206 ==
LOC: ER 13:26 → ICU 17:08
PROVIDERS: ADMIT Obstetrics & Gynecology Obstetrics; ATTEND Internal Medicine
DX: B96.1 Klebsiella pneumoniae [K. pneumoniae] as the cause of diseases classified elsewhere; E66.2 Morbid (severe) obesity with alveolar hypoventilation; I25.10 Atherosclerotic heart disease of native coronary artery without angina pectoris; B96.29 Other Escherichia coli [E. coli] as the cause of diseases classified elsewhere; R60.0 Localized edema; N39.0 Urinary tract infection, site not specified; E87.6 Hypokalemia; K21.9 Gastro-esophageal reflux disease without esophagitis; J44.1 Chronic obstructive pulmonary disease with (acute) exacerbation; E11.65 Type 2 diabetes mellitus with hyperglycemia; N18.3 Chronic kidney disease, stage 3 (moderate)
CPT/HCPCS: 36415; 36600; 71010; 71045; 80053; 81001; 82803; 85025; 87086; 87088; 87186; 94640; 94660; 96365; 96374; 96375; 99285; A4618; A7030; Q0169; J1642; J1940; J2060; J2920; J2930; J7613; J7620; J7626; S0119; S0181

== ENCOUNTER 2019-07-03 11:50 | Inpatient (IN) ==
[2019-07-03 12:11] VITALS: BMI 63.8
--- NOTE | 2019-07-03 12:30 | RAD ---
History: Shortness of breath Exam: Portable chest Comparison: 05/01/2018 Technique: Multiple grayscale and color flow Doppler images of the pelvis were obtained. Findings: The heart is mildly enlarged but unchanged. The pulmonary vessels are less prominent centrally . The lungs are hypoinflated with hazy bibasilar opacities which is less prominent. No effusion is seen. There is a right Port-A-Cath in place which is unchanged. IMPRESSION: Mild cardiomegaly and minimal central pulmonary congestion which is less prominent . Questionable mild bibasilar atelectasis or scarring which is less prominent. No change in the right Port-A-Cath. Reported By:
[2019-07-03 12:33] LABS: BASOPHILS # (AUTO) 0.1 X10^3/uL (0.0-0.1); BASOPHILS % (AUTO) 0.7 % (0.2-1.0); EOSINOPHILS # (AUTO) 0.5 x10^3/uL (0.0-0.2); EOSINOPHILS % (AUTO) 3.4 % (0.9-2.9); HEMATOCRIT 36.7 % (36.0-47.0); HEMOGLOBIN 11.9 g/dL (12.0-16.0); LYMPHOCYTES # (AUTO) 1.8 X10^3/uL (1.3-2.9); LYMPHOCYTES % (AUTO) 13.6 % (21.0-51.0); MEAN CORPUSCULAR HEMOGLOBIN 30.2 pg (27.0-34.0); MEAN CORPUSCULAR HGB CONC 32.4 g/dL (33.0-35.0); MEAN CORPUSCULAR VOLUME 93.4 fL (80.0-100.0); MEAN PLATELET VOLUME 8.3 fL (7.4-11.0); MONOCYTES % (AUTO) 7.7 % (0.0-13.0); NEUTROPHILS # (AUTO) 10.1 x10^3/uL (2.2-4.8); NEUTROPHILS % (AUTO) 74.6 % (42.0-75.0); PLATELET COUNT 268 X10^3/uL (150.0-450.0); RED BLOOD COUNT 3.93 X10^6/uL (3.5-5.4); RED CELL DISTRIBUTION WIDTH 13.6 % (11.6-16.5); WHITE BLOOD COUNT 13.5 X10^3/uL (3.6-10.0)
--- NOTE | 2019-07-03 12:41 | DR.GENAD ---
HPI Time Seen Time Seen by Provider: 07/03/19 12:07 PCP Primary Care Physician: Espinal Complaint/Symptoms Chief Complaint Doctors Comments: 64yo female presented by EMS for sob and Cp. Pt reports HH NR noted she was having cp and worsening sob and sent to ER. Pt reports having substernal CP that radiates to her left arm and jaw and is heaviness. She reports SOB but no diaphoresis,n or v. She is on trilogy at home but is not working. She reports having BLE swelling. Denies any reflux or abd pain. Pain is 4/10. Pt was recently dx from hospital on 06/27 for hypoventilation syndrome Chief Complaint:: sob/cp Nurses notes reviewed Nurses Notes Review: Yes Source History Provided: Patient and EMS Mode of Arrival Mode of Arrival: EMS Timing Came on: Gradually Duration Duration: Constant Duration: Days Location Location: substernal Severity Severity: Mild Modifying Factors Worsens:: sob Improves:: nothing Associated Signs and Symptoms Associated Signs and Symptoms: sob PMH PMH Past Medical History: Anemia, Anxiety, Arthritis, CHF, COPD, Coronary Artery D isease, Diabetes, GERD, Hypertension and Renal Disease Past Surgical History: Yes Surgical History: Appendectomy, Bowel Resection, CABG/Valve Surgery, 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 MANAGER Surgery, Hysterectomy and Tonsillectomy Family History Family Medical History: Diabetes Mellitus and Hypertension Social History Type of Tobacco Use: None Alcohol Use: None Do you use any recreational Drugs:: No Lives With: Alone Lives Where: Home infectious screening Isolation: Standard ROS Review of Systems Constitutional: Weakness; negative Chills and Fever Eyes: negative Blurred Vision ENTM: negative Nose Congestion Respiratoy: Short of Breath; negative Dry Cough and Wheezing Cardiovascular: Chest Pain and Edema; negative Palpitations Gastrointestinal/Abdominal: negative Abdominal Pain, Constipation, Nausea and Vomiting Genitourinary: negative Dysuria and Hematuria Neurological: Weakness; negative Headache and Speech Problem Musculoskeletal: negative Back Pain Integumentary: negative Wound Endocrine: Unexplained Weight Gain Psychiatric: negative Depression All Other Systems: Reviewed and Negative PE Vital Signs Vitals: Temperature 98.9 F Pulse Rate 100 Respiratory Rate 20 Blood Pressure [Left Arm] 122/68 Blood Pressure [Right Arm] 134/64 Blood Pressure 119/62 O2 Sat by Pulse Oximetry 93 General Limitations: No Limitations General Appearance: Alert, In Distress (mild), Obese and Other (chronically ill appearing) Head Head Exam: Normal Inspection, Atraumatic, Normocephalic and Other Eyes Eye exam: Normal Appearance, PERRL and EOMI; negative Scleral Icterus ENT ENT Exam: Normal Exam and Mucous Membranes Dry Mouth Exam: Normal Inspection Throat Exam: Normal Inspection Neck Neck Exam: Normal Inspection Chest Chest Inspection: Normal Inspection; negative Tenderness Respiratory Respiratory Exam: Prolonged Expiratory Phase and Respiratory Distress (mild) Respiratory Exam: Bilateral: Decreased Breath Sounds Cardiovascular Cardiovascular Exam: Regular Rate and Normal Rhythm Abdominal Exam Abdominal Exam: Normal Bowel Sounds and Soft; negative Tenderness Extremities Extremities Exam: Normal Capillary Refill and Edema (2+ BLE) Neurologic Neurological Exam: Alert and Oriented X3; negative Motor Sensory Deficit Psychiatric Psychiatric Exam: Normal Affect and Normal Mood Skin Skin Exam: Warm, Dry, Intact and Normal Color MDM Additional Information Additional Information Obtained From: Old Records Differential Diagnosis Differential Diagnosis: copd/cp/sob COURSE Reevaluation 1st: Improved (pt feeling better. She ahs chronic CP that is unchanged. Pt has Trilogy at home and lives with caregiver. Pt stable and will dc home. Instructed to continue Trilogy as directed.) Education/Counseling Education/Counseling: Patient, Education and Counseling Educated On: Treatment, Diagnosis, Prognosis and Needs for Follow Up (pcp) ROR Labs Reviewed Laboratory Results Reviewed?: Yes Result Diagrams: 07/03/19 12:26 07/03/19 19:55 Laboratory: WBC 13.5 X10^3/uL (3.6-10.0) H 07/03/19 12:26 RBC 3.93 X10^6/uL (3.5-5.4) 07/03/19 12:26 Hgb 11.9 g/dL (12.0-16.0) L 07/03/19 12:26 Hct 36.7 % (36.0-47.0) 07/03/19 12:26 MCV 93.4 fL (80.0-100.0) 07/03/19 12:26 MCH 30.2 pg (27.0-34.0) 07/03/19 12:26 MCHC 32.4 g/dL (33.0-35.0) L 07/03/19 12:26 RDW 13.6 % (11.6-16.5) 07/03/19 12:26 Plt Count 268 X10^3/uL (150.0-450.0) 07/03/19 12: MPV 8.3 fL (7.4-11.0) 07/03/19 12: Neut % (Auto) 74.6 % (42.0-75.0) 07/03/19 12: Lymph % (Auto) 13.6 % (21.0-51.0) L 07/03/19 12: [place] % (Auto) 7.7 % (0.0-13.0) 07/03/19 12: Eos % (Auto) 3.4 % (0.9-2.9) H 07/03/19 12: Baso % (Auto) 0.7 % (0.2-1.0) 07/03/19 12: Neut # (Auto) 10.1 x10^3/uL (2.2-4.8) H 07/03/19 12: Lymph # (Auto) 1.8 X10^3/uL (1.3-2.9) 07/03/19 12: [place] # (Auto) 1.0 x10^3/uL (0.3-0.8) H 07/03/19 12: Eos # (Auto) 0.5 x10^3/uL (0.0-0.2) H 07/03/19 12: Baso # (Auto) 0.1 X10^3/uL (0.0-0.1) 07/03/19 12: Absolute Nucleated RBC 0.0 /100WBC 07/03/19 12: Sample Site Lr 07/03/19 14:22 ABG pH 7.450 (7.35-7.45) 07/03/19 14:22 ABG pCO2 66.0 mmHg (35.0-45.0) H* 07/03/19 14:22 ABG pO2 72.0 mmHg (80.0-100.0) L 07/03/19 14:22 ABG HCO3 45.9 mmol/L (22-26) H* 07/03/19 14:22 ABG O2 Saturation 95.0 % (90-100) 07/03/19 14:22 ABG Base Excess 18.5 mmol/L (-2.0-2.0) H 11/22/19 14:22 Sameer Test Pos 07/03/19 14:22 A-a Gradient 45.0 mmHg 07/03/19 14:22 FiO2 28.0 07/03/19 14:22 Blood Gas Comments Fermín well 07/03/19 14:22 Sodium 141 mmol/L (136-145) 07/03/19 12:26 Corrected Sodium TNP 07/03/19 12:26 Potassium 3.7 mmol/L (3.5-5.1) 07/03/19 12:26 Chloride 97 mmol/L (98-107) L 07/03/19 12:26 Carbon Dioxide 41.9 mmol/L (21-32) H* 07/03/19 12:26 BUN 22 mg/dL (7-18) H 07/03/19 12:26 Creatinine 1.22 mg/dL (0.55-1.02) H 07/03/19 12:26 Est GFR (MDRD) Af Amer 57 (>60) L 07/03/19 12:26 Est GFR (MDRD) Non-Af 47 (>60) L 07/03/19 12:26 Glucose 102 mg/dL (65-99) H 07/03/19 12:26 Calcium 9.5 mg/dL (8.5-10.1) 07/03/19 12:26 Troponin I < 0.02 ng/mL (0-1.5) 07/03/19 12:26 B-Natriuretic Peptide 27.7 pg/mL (0-79) 07/03/19 12:26 Other Results Comments: WBC 13.5 tending down. HB 11.9 BNP 27 Cr 1.22 BUN 22 trending down. Trop neg XRAY XRAY Interpreted by: Radiologist XRAY Findings: CXR: CM, NAF EKG Rate: 98 [place]: Normal Rhythm: NSR Block: None Hypertrophy: None ST: Nonsp (interpeted by me) Opioid Opioid Risk Tool Age (Jann box if 16-45): No History of Preadolescent Sexual Abuse: No Total: 0 Total Score Risk Category: Low Risk Copyright: Alexis ROJAS predicting aberrant behaviors Diagnosis Discharge Problem: Hypoventilation syndrome, Atypical chest pain, CKD (chronic kidney disease) stage 3, GFR 30-59 ml/min Instructions Forms: Excuse From Work Patient Portal ADDITIONAL NOTES Additional Notes Additional Notes: I have personally reviewed your medications, lab results, imaging and time was spent discussion results. Patient educated on their health issue. They verbalized their understanding and agreed with plan of care. Condition: Stable Disposition: Admission
[2019-07-03 12:46] LABS: BLOOD UREA NITROGEN 22 mg/dL (7-18); CALCIUM 9.5 mg/dL (8.5-10.1); CHLORIDE 97 mmol/L (98-107); CREATININE 1.22 mg/dL (0.55-1.02); SODIUM 141 mmol/L (136-145); TROPONIN I < 0.02 ng/mL (0-1.5); eGFR NON BLACK RACES 47 (>60)
[2019-07-03 12:51] LABS: CARBON DIOXIDE 41.9 mmol/L (21-32)
[2019-07-03] MEDS ORDERED: LASIX IVP ONE ×2 (13:46→15:39)
[2019-07-03 14:26] LABS: ABG BASE EXCESS 18.5 mmol/L (-2.0-2.0)
[2019-07-03 14:27] LABS: ABG HCO3 45.9 mmol/L (22-26)
[2019-07-03 14:28] LABS: ABG ALLEN TEST POS
[2019-07-03] MEDS: PERCOCET TAB 5/325 MG PO PRN (15:48)
[2019-07-03] MEDS ORDERED: DUONEB 0.5 MG/3 MG IN PRN (16:42)
[2019-07-03] MEDS: PROVENTIL NEB TX 0.083% 2.5MG/ 3ML NEB SCH (17:00)
--- NOTE | 2019-07-03 19:27 | DR.H&P ---
H&P - History & Physical for Day of: H&P Date: 07/03/19 - Chief Complaint Chief Complaint: SOB, CHEST PAIN - History of Present Illness History of Present Illness: 64yo female, ER ADMISSION AFTER presenting by EMS for sob and Cp. Pt reports HH NR noted she was having cp and worsening sob and sent to ER. Pt reports having substernal CP that radiates to her left arm and jaw and is heaviness. She reports SOB but no diaphoresis,n or v. She is on trilogy at home but is not working. She reports having BLE swelling. Denies any reflux or abd pain. Pain is 4/10. Pt was recently dx from hospital on 06/27 for hypoventilation syndrome. PT HAS PMH OF COPD WITH RESP FAILURE, HTN, OA, GERD, CHRONIC PANCREATITIS, CHF, DHARA. 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, Hysterectomy, Tonsillectomy - Family History Family Medical History: Diabetes Mellitus, Hypertension - Social History Does patient currently use any type of tobacco product: No Have you used tobacco products in the last 12 months: No Type of Tobacco Use: None Does any household member use tobacco: No Alcohol Use: None Drug Use: None - Medications Home Medications: ketorolac [From Toradol] Allergy (Verified 06/26/19 13:28) nalbuphine [From Nubain] Allergy (Verified 06/26/19 13:28) Penicillins Allergy (Verified 06/26/19 13:28) Sulfa (Sulfonamide Antibiotics) [SULFA] Allergy (Verified 06/26/19 13:28) BETA BLOCKERS Allergy (Uncoded 06/26/19 13:28) - Review of Systems Constitutional: Weakness Eyes: No Symptoms Reported ENT: No Symptoms Reported Respiratory: Cough, Shortness of Breath, Wheezing Cardiovascular: Chest Pain, Edema Gastrointestinal: Nausea Genitourinary: Frequency Musculoskeletal: Shoulder Pain, Back Pain, Leg Pain Skin: Bruising Neurological: Weakness - Physical Exam Vital Signs: Temperature 97.6 F Pulse Rate [Left Brachial] 112 Pulse Rate 91 Respiratory Rate 20 Blood Pressure [Left Arm] 122/68 Blood Pressure [Right Arm] 121/69 Blood Pressure 119/62 O2 Sat by Pulse Oximetry 93 Oriented: Normal Eyes: Normal Ear: Normal Nose: Normal Throat: Normal Respiratory: Diminished Throughout, Wheezes Throughout Cardiovascular: Normal, Edema : Normal Auscultation: Bowel Sounds: Normal Palpation: Normal Tenderness: LUQ, Epigastric, Mild Skin: Decreased Turgur Musculoskeletal: Left, Shoulder, Knee (RIGHT KNEE), Back:Thoracic, Back:Lumbar, Motor Deficit Psychiatric: Anxiety Affect: Anxious Speech Pattern: Clear, Appropriate - Assessment/Plan (1) COPD (chronic obstructive pulmonary disease) with acute bronchitis Status: Acute Plan: PT ADMITTED, CE AND EKG. RESP CONSULT, SPUTUM ON ADMISSION. CXR ON ADMISSION, HTN CONTROL, SUPPLEMENTAL O2. BIPAP OR PT'S TRILOGY PRN, IV SOLUMEDROL. IV LASIX, TODD CATH WITH STRICT I &OS. VERIFY HOME MEDICATION. REPEAT AM LABS AND ABG (2) Chest pain, rule out acute myocardial infarction Status: Acute (3) Chronic pancreatitis Status: Acute (4) ARF (acute renal failure) Status: Acute (5) CHF (congestive heart failure) Status: Acute (6) Edema Status: Acute (7) GERD with esophagitis Status: Acute (8) DDD (degenerative disc disease), lumbosacral Status: Chronic (9) Essential hypertension Status: Chronic - Allergies Allergies/Adverse Reactions: Allergies Allergy/AdvReac Type Severity Reaction Status Date / Time ketorolac [From Toradol] Allergy Verified 06/26/19 13:28 nalbuphine [From Nubain] Allergy Verified 06/26/19 13:28 Penicillins Allergy Verified 06/26/19 13:28 Sulfa (Sulfonamide Allergy Verified 06/26/19 13:28 Antibiotics) [SULFA] BETA BLOCKERS Allergy Uncoded 06/26/19 13:28
[2019-07-03 20:28] LABS: ALBUMIN 3.2 g/dL (3.4-5.0); CALCIUM 9.1 mg/dL (8.5-10.1); CARBON DIOXIDE 36.7 mmol/L (21-32); COR CA(FOR HYPOALB) 9.7 mg/dL (8.5-10.1); CREATININE 1.54 mg/dL (0.55-1.02); TOTAL PROTEIN 7.5 g/dL (6.4-8.2)
[2019-07-03] MEDS ORDERED: PROVENTIL NEB TX 0.083% 2.5MG/ 3ML NEB PRN (21:00)
[2019-07-03] MEDS ORDERED: ZANTAC PO SCH (21:00)
[2019-07-03] MEDS ORDERED: LASIX PO SCH (21:00)
[2019-07-03] MEDS: SINGULAIR TAB 10 MG PO SCH (21:08)
[2019-07-03] MEDS: REGLAN TAB 10 MG PO SCH (21:08)
[2019-07-03] MEDS: REQUIP PO SCH (21:08)
[2019-07-03] MEDS: ZOFRAN TAB 4 MG PO SCH (21:09)
[2019-07-03] MEDS: SOLU-Medrol 125 MG VIAL IVP SCH (21:09)
[2019-07-03] MEDS: XANAX PO PRN (21:09)
[2019-07-03] MEDS: PULMICORT NEB TX 0.5 MG NEB SCH (21:14)
[2019-07-03] MEDS: Atrovent NEB TX 0.02% NEB PRN (21:14)
[2019-07-04] MEDS: PROVENTIL NEB TX 0.083% 2.5MG/ 3ML NEB SCH ×4 (00:17→17:32)
[2019-07-04 05:19] LABS: BASOPHILS % (AUTO) 0.3 % (0.2-1.0); EOSINOPHILS % (AUTO) 0.2 % (0.9-2.9); HEMOGLOBIN 11.7 g/dL (12.0-16.0); LYMPHOCYTES % (AUTO) 10.4 % (21.0-51.0); MEAN CORPUSCULAR HEMOGLOBIN 31.3 pg (27.0-34.0); MEAN CORPUSCULAR HGB CONC 33.3 g/dL (33.0-35.0); MEAN PLATELET VOLUME 9.3 fL (7.4-11.0); MONOCYTES # (AUTO) 0.2 x10^3/uL (0.3-0.8); MONOCYTES % (AUTO) 1.6 % (0.0-13.0); NEUTROPHILS # (AUTO) 8.5 x10^3/uL (2.2-4.8); NEUTROPHILS % (AUTO) 87.5 % (42.0-75.0); PLATELET COUNT 225 X10^3/uL (150.0-450.0); RED BLOOD COUNT 3.73 X10^6/uL (3.5-5.4); RED CELL DISTRIBUTION WIDTH 13.9 % (11.6-16.5); WHITE BLOOD COUNT 9.7 X10^3/uL (3.6-10.0)
[2019-07-04 05:33] LABS: CALCIUM 9.1 mg/dL (8.5-10.1); COR CA(FOR HYPOALB) 9.9 mg/dL (8.5-10.1); CREATININE 1.35 mg/dL (0.55-1.02); TOTAL PROTEIN 7.5 g/dL (6.4-8.2)
[2019-07-04] MEDS: ZOFRAN TAB 4 MG PO SCH ×4 (05:50→22:04)
[2019-07-04] MEDS: PERCOCET TAB 5/325 MG PO PRN ×2 (05:50→19:54)
[2019-07-04] MEDS: SOLU-Medrol 125 MG VIAL IVP SCH ×2 (05:50→14:30)
[2019-07-04 05:57] LABS: CARBON DIOXIDE 40.3 mmol/L (21-32)
[2019-07-04] MEDS: LASIX IVP SCH ×2 (07:27→09:50)
[2019-07-04] MEDS: PULMICORT NEB TX 0.5 MG NEB SCH ×2 (08:00→21:15)
[2019-07-04 09:09] LABS: ABG BASE EXCESS 16.6 mmol/L (-2.0-2.0)
[2019-07-04 09:10] LABS: ABG HCO3 43.4 mmol/L (22-26)
--- NOTE | 2019-07-04 09:39 | RAD ---
Examination: AP chest, two views History: CHF COPD Comparison 07/03/2019 Findings: The heart is not significantly enlarged. The lungs are clear of active-appearing disease. There is mild chronic interstitial thickening suggested at the right lung base. There is no change in position of the right subclavian injection port. Impression: Considering technical differences, no change or acute abnormality noted. Mild right basal fibrosis/atelectasis. Reported By:
[2019-07-04] MEDS: ALDACTONE TAB 25 MG PO SCH (09:50)
[2019-07-04] MEDS: CARDIZEM CD 120 MG 24-HR PO SCH (09:50)
[2019-07-04] MEDS: REGLAN TAB 10 MG PO SCH ×2 (09:50→21:49)
[2019-07-04] MEDS: PROTONIX TAB 40 MG PO SCH (09:50)
[2019-07-04] MEDS: SYNTHROID 25 mcg TAB PO SCH (10:15)
[2019-07-04] MEDS: NEURONTIN TAB 600 MG PO SCH ×2 (15:06→21:49)
[2019-07-04] MEDS: XANAX PO PRN (16:15)
[2019-07-04] MEDS: Atrovent NEB TX 0.02% NEB PRN (21:15)
[2019-07-04] MEDS: SINGULAIR TAB 10 MG PO SCH (21:46)
[2019-07-04] MEDS: REQUIP PO SCH (21:49)
[2019-07-04] MEDS: PHENERGAN INJ 25 MG IM PRN (23:45)
[2019-07-04] MEDS: AMBIEN PO PRN (23:45)
[2019-07-05] MEDS: PROVENTIL NEB TX 0.083% 2.5MG/ 3ML NEB SCH ×4 (00:40→16:38)
[2019-07-05 05:12] LABS: BASOPHILS % (AUTO) 0.4 % (0.2-1.0); HEMATOCRIT 33.9 % (36.0-47.0); HEMOGLOBIN 11.3 g/dL (12.0-16.0); LYMPHOCYTES # (AUTO) 0.7 X10^3/uL (1.3-2.9); LYMPHOCYTES % (AUTO) 5.7 % (21.0-51.0); MEAN CORPUSCULAR HEMOGLOBIN 30.7 pg (27.0-34.0); MEAN CORPUSCULAR HGB CONC 33.3 g/dL (33.0-35.0); MEAN CORPUSCULAR VOLUME 92.2 fL (80.0-100.0); MONOCYTES # (AUTO) 0.5 x10^3/uL (0.3-0.8); MONOCYTES % (AUTO) 3.8 % (0.0-13.0); NEUTROPHILS # (AUTO) 10.7 x10^3/uL (2.2-4.8); NEUTROPHILS % (AUTO) 90.1 % (42.0-75.0); PLATELET COUNT 246 X10^3/uL (150.0-450.0); RED BLOOD COUNT 3.67 X10^6/uL (3.5-5.4); RED CELL DISTRIBUTION WIDTH 13.9 % (11.6-16.5); WHITE BLOOD COUNT 11.9 X10^3/uL (3.6-10.0)
[2019-07-05 05:22] LABS: COR CA(FOR HYPOALB) 9.8 mg/dL (8.5-10.1); CREATININE 1.5 mg/dL (0.55-1.02); TOTAL PROTEIN 7.5 g/dL (6.4-8.2)
[2019-07-05] MEDS: PERCOCET TAB 5/325 MG PO PRN ×3 (05:35→21:10)
[2019-07-05] MEDS: ZOFRAN TAB 4 MG PO SCH ×2 (05:36→14:00)
[2019-07-05 05:47] LABS: BAND NEUTROPHILS % 2 % (0-10); PLATELET MORPHOLOGY COMMENT NORMAL (NORMAL)
[2019-07-05] MEDS: REGLAN TAB 10 MG PO SCH ×2 (09:20→21:10)
[2019-07-05] MEDS: PROTONIX TAB 40 MG PO SCH (09:20)
[2019-07-05] MEDS: ALDACTONE TAB 25 MG PO SCH (09:20)
[2019-07-05] MEDS: CARDIZEM CD 120 MG 24-HR PO SCH (09:21)
[2019-07-05] MEDS: SYNTHROID 25 mcg TAB PO SCH (09:21)
[2019-07-05] MEDS: NEURONTIN TAB 600 MG PO SCH (09:21)
[2019-07-05] MEDS: PULMICORT NEB TX 0.5 MG NEB SCH ×2 (09:24→20:54)
[2019-07-05] MEDS: XANAX PO PRN ×2 (09:48→21:10)
[2019-07-05] MEDS ORDERED: MORPHINE SULFATE INJ 2 MG INJ IVP ONE (14:02)
[2019-07-05] MEDS ORDERED: MORPHINE SULFATE INJ 2 MG INJ ONE (14:43)
--- NOTE | 2019-07-05 15:33 | PCM.PROG ---
Progress Note - Progress Note for Day of Date of Exam: 07/04/19 - Subjective Subjective: PT IS 64 WF ER ADMISSION WITH CO CHEST PAIN AND RESPIRATORY DISTRESS. PT HAS PMH OF CHF AND COPD WITH RESP FAILURE, PT HAS TRILOGY AT HOME AND REPORTS SHE HAS BEEN USING IT. PT WAS STARTED ON IV ATBX THERAPY ON ADMISSION WITH LASIX AND IV STEROIDS. PT HAD ABG WITH PCO2 66. PT WAS PLACED ON BIPAP AND HAS TOLERATED WELL. ABG THIS AM PCO2 62. PT CO ANXIETY AND SWELLING. PT HAD DIFFUSE EDEMA TO BILATERAL UPPER EXTREMITIES, AND PITTING EDEAM TO TRUNK AND LEGS. BUN 21, CREAT 1.54. CXR WITH :central pulmonary congestion which is less prominent - Past Medical Family Social History Past Med/Fam/Surg Hx: No changes since H&P Allergies: Allergies ketorolac [From Toradol] Allergy (Verified 06/26/19 13:28) nalbuphine [From Nubain] Allergy (Verified 06/26/19 13:28) Penicillins Allergy (Verified 06/26/19 13:28) Sulfa (Sulfonamide Antibiotics) [SULFA] Allergy (Verified 06/26/19 13:28) BETA BLOCKERS Allergy (Uncoded 06/26/19 13:28) - Review of Systems ROS: No change since H&P - Vital Signs and I&O's Vital Signs: Temperature 98.6 F Pulse Rate [Left Brachial] 98 Pulse Rate 96 Respiratory Rate 24 Blood Pressure [Left Arm] 153/52 Blood Pressure [Right Arm] 108/56 Blood Pressure 119/62 O2 Sat by Pulse Oximetry 91 Intake and Output: Intake & Output 07/03/19 07/04/19 07/05/19 07/06/19 11:59 11:59 11:59 11:59 Intake Total 853 / 853 1995 Output Total 1949 / 1949 2450 / 2450 Balance -1097 / -1097 -454 / -454 - Physical Exam Oriented: Normal Eyes: Normal Ear: Normal Nose: Normal Throat: Normal Respiratory: Diminished, Wheezes, Rhonchi Cardiovascular: Normal, Edema : Normal Auscultation: Bowel Sounds: Normal Palpation: Other (DIFFUSE ABDOMINAL DISTENTION) Tenderness: LUQ, Epigastric, Mild Skin: Decreased Turgur Musculoskeletal: Left, Shoulder, Knee (RIGHT KNEE), Back:Thoracic, Back:Lumbar, Motor Deficit Psychiatric: Anxiety Affect: Anxious Speech Pattern: Clear, Appropriate - Laboratory and Diagnostics Result Diagrams: 07/05/19 04:29 07/05/19 04:29 Labs: Laboratory WBC 11.9 X10^3/uL (3.6-10.0) H 07/05/19 04:29 RBC 3.67 X10^6/uL (3.5-5.4) 07/05/19 04:29 Hgb 11.3 g/dL (12.0-16.0) L 07/05/19 04:29 Hct 33.9 % (36.0-47.0) L 07/05/19 04:29 MCV 92.2 fL (80.0-100.0) 07/05/19 04: MCH 30.7 pg (27.0-34.0) 07/05/19 04: MCHC 33.3 g/dL (33.0-35.0) 07/05/19 04: RDW 13.9 % (11.6-16.5) 07/05/19 04:29 Plt Count 246 X10^3/uL (150.0-450.0) 07/05/19 04:29 Plt Count Comment Adequate (ADEQUATE) 07/05/19 04: MPV 9.0 fL (7.4-11.0) 07/05/19 04: Neut % (Auto) 90.1 % (42.0-75.0) H 07/05/19 04:29 Lymph % (Auto) 5.7 % (21.0-51.0) L 07/05/19 04:29 [place] % (Auto) 3.8 % (0.0-13.0) 07/05/19 04:29 Eos % (Auto) 0.0 % (0.9-2.9) L 07/05/19 04:29 Baso % (Auto) 0.4 % (0.2-1.0) 07/05/19 04:29 Neut # (Auto) 10.7 x10^3/uL (2.2-4.8) H 07/05/19 04:29 Lymph # (Auto) 0.7 X10^3/uL (1.3-2.9) L 07/05/19 04:29 [place] # (Auto) 0.5 x10^3/uL (0.3-0.8) 07/05/19 04:29 Eos # (Auto) 0.0 x10^3/uL (0.0-0.2) 07/05/19 04:29 Baso # (Auto) 0.0 X10^3/uL (0.0-0.1) 07/05/19 04:29 Absolute Nucleated RBC 0.0 /100WBC 07/05/19 04:29 Total Counted 100 07/05/19 04:29 Neutrophils % (Manual) 91 % (39-76) H 07/05/19 04:29 Band Neutrophils % 2 % (0-10) 07/05/19 04:29 Lymphocytes % (Manual) 4 % (13-43) L 07/05/19 04:29 Monocytes % (Manual) 3 % (4-9) L 07/05/19 04:29 Plt Morphology Comment Normal (NORMAL) 07/05/19 04:29 RBC Morphology Normal (NORMAL) 07/05/19 04:29 Sample Site Lb 07/04/19 09:01 ABG pH 7.460 (7.35-7.45) H 07/04/19 09:01 ABG pCO2 61.0 mmHg (35.0-45.0) H* 07/04/19 09:01 ABG pO2 60.0 mmHg (80.0-100.0) L 07/04/19 09:01 ABG HCO3 43.4 mmol/L (22-26) H* 07/04/19 09:01 ABG O2 Saturation 92.0 % (90-100) 07/04/19 09:01 ABG Base Excess 16.6 mmol/L (-2.0-2.0) H 07/04/19 09:01 Sameer Test Na 07/04/19 09:01 A-a Gradient 63.0 mmHg 07/04/19 09:01 FiO2 28.0 07/04/19 09:01 Blood Gas Comments Pt baltazar well. cdn 07/04/19 09:01 Sodium 136 mmol/L (136-145) 07/05/19 04:29 Corrected Sodium 140 mmol/L (136-145) 07/05/19 04:29 Potassium 4.1 mmol/L (3.5-5.1) 07/05/19 04:29 Chloride 93 mmol/L (98-107) L 07/05/19 04:29 Carbon Dioxide 38.0 mmol/L (21-32) H 07/05/19 04:29 BUN 31 mg/dL (7-18) H 07/05/19 04:29 Creatinine 1.50 mg/dL (0.55-1.02) H 07/05/19 04:29 Est GFR (MDRD) Af Amer 45 (>60) L 07/05/19 04:29 Est GFR (MDRD) Non-Af 37 (>60) L 07/05/19 04:29 Glucose 276 mg/dL (65-99) H 07/05/19 04:29 Calcium 9.0 mg/dL (8.5-10.1) 07/05/19 04:29 Corrected Calcium 9.8 mg/dL (8.5-10.1) 07/05/19 04:29 Total Bilirubin 0.30 mg/dL (0.2-1.0) 07/05/19 04:29 AST 43 Units/L (15-37) H 07/05/19 04:29 ALT 63 Units/L (12-78) 07/05/19 04:29 Alkaline Phosphatase 122 Units/L (46-116) H 07/05/19 04:29 Troponin I < 0.02 ng/mL (0-1.5) 07/03/19 19:55 B-Natriuretic Peptide 27.7 pg/mL (0-79) 07/03/19 12:26 Total Protein 7.5 g/dL (6.4-8.2) 07/05/19 04:29 Albumin 3.0 g/dL (3.4-5.0) L 07/05/19 04:29 Globulin 4.5 g/dL (2.5-4.5) 07/05/19 04:29 Albumin/Globulin Ratio 0.7 Ratio (1.1-2.1) L 07/05/19 04:29 - Plan (1) COPD (chronic obstructive pulmonary disease) with acute bronchitis Status: Acute Plan: CE AND EKG, SERIAL ON ADMISSION. RESP CONSULT, SPUTUM ORDERED ON ADMISSION. AM CXR, HTN CONTROL, SUPPLEMENTAL O2. BIPAP OR PT'S TRILOGY PRN, IV SOLUMEDROL. IV LASIX, TODD CATH WITH STRICT I &OS. VERIFY HOME MEDICATION. REPEAT AM LABS AND ABG (2) Chest pain, rule out acute myocardial infarction Status: Acute (3) Chronic pancreatitis Status: Acute (4) ARF (acute renal failure) Status: Acute (5) CHF (congestive heart failure) Status: Acute (6) Edema Status: Acute (7) GERD with esophagitis Status: Acute (8) DDD (degenerative disc disease), lumbosacral Status: Chronic (9) Essential hypertension Status: Chronic
--- NOTE | 2019-07-05 15:36 | PCM.PROG ---
Progress Note - Progress Note for Day of Date of Exam: 07/05/19 - Subjective Subjective: PT IS 64 WF ER ADMISSION WITH CO CHEST PAIN AND RESPIRATORY DISTRESS. PT HAS PMH OF CHF AND COPD WITH RESP FAILURE, PT HAS TRILOGY AT HOME AND REPORTS SHE HAS BEEN USING IT. PT WAS STARTED ON IV ATBX THERAPY ON ADMISSION WITH LASIX AND IV STEROIDS. PT HAD ABG ON ADMISSION WITH PCO2 66. PT ON BIPAP AND HAS TOLERATED WELL. PT CO ANXIETY AND SWELLING. PT HAD DIFFUSE EDEMA TO BILATERAL UPPER EXTREMITIES, AND PITTING EDEAM TO TRUNK AND LEGS. BUN 31, CREAT 1.50. CXR WITH :central pulmonary congestion which is less prominent - Past Medical Family Social History Past Med/Fam/Surg Hx: No changes since H&P Allergies: Allergies ketorolac [From Toradol] Allergy (Verified 06/26/19 13:28) nalbuphine [From Nubain] Allergy (Verified 06/26/19 13:28) Penicillins Allergy (Verified 06/26/19 13:28) Sulfa (Sulfonamide Antibiotics) [SULFA] Allergy (Verified 06/26/19 13:28) BETA BLOCKERS Allergy (Uncoded 06/26/19 13:28) - Review of Systems ROS: No change since H&P - Vital Signs and I&O's Vital Signs: Temperature 98.6 F Pulse Rate [Left Brachial] 98 Pulse Rate 96 Respiratory Rate 24 Blood Pressure [Left Arm] 153/52 Blood Pressure [Right Arm] 108/56 Blood Pressure 119/62 O2 Sat by Pulse Oximetry 91 Intake and Output: Intake & Output 07/03/19 07/04/19 07/05/19 07/06/19 11:59 11:59 11:59 11:59 Intake Total 853 / 853 1995 Output Total 1949 / 1949 2450 / 2450 Balance -1097 / -1097 -454 / -454 - Physical Exam Oriented: Normal Eyes: Normal Ear: Normal Nose: Normal Throat: Normal Respiratory: Diminished, Wheezes, Rhonchi Cardiovascular: Normal, Edema : Normal Auscultation: Bowel Sounds: Normal Tenderness: LUQ, Epigastric, Mild Skin: Decreased Turgur Musculoskeletal: Left, Shoulder, Knee (RIGHT KNEE), Back:Thoracic, Back:Lumbar, Motor Deficit Psychiatric: Anxiety Affect: Anxious Speech Pattern: Clear, Appropriate - Laboratory and Diagnostics Result Diagrams: 07/05/19 04:29 07/05/19 04:29 Labs: Laboratory WBC 11.9 X10^3/uL (3.6-10.0) H 07/05/19 04:29 RBC 3.67 X10^6/uL (3.5-5.4) 07/05/19 04:29 Hgb 11.3 g/dL (12.0-16.0) L 07/05/19 04:29 Hct 33.9 % (36.0-47.0) L 07/05/19 04:29 MCV 92.2 fL (80.0-100.0) 07/05/19 04: MCH 30.7 pg (27.0-34.0) 07/05/19 04: MCHC 33.3 g/dL (33.0-35.0) 07/05/19 04: RDW 13.9 % (11.6-16.5) 07/05/19 04:29 Plt Count 246 X10^3/uL (150.0-450.0) 07/05/19 04:29 Plt Count Comment Adequate (ADEQUATE) 07/05/19 04:29 MPV 9.0 fL (7.4-11.0) 07/05/19 04: Neut % (Auto) 90.1 % (42.0-75.0) H 07/05/19 04:29 Lymph % (Auto) 5.7 % (21.0-51.0) L 07/05/19 04:29 [place] % (Auto) 3.8 % (0.0-13.0) 07/05/19 04: Eos % (Auto) 0.0 % (0.9-2.9) L 07/05/19 04:29 Baso % (Auto) 0.4 % (0.2-1.0) 07/05/19 04:29 Neut # (Auto) 10.7 x10^3/uL (2.2-4.8) H 07/05/19 04:29 Lymph # (Auto) 0.7 X10^3/uL (1.3-2.9) L 07/05/19 04:29 [place] # (Auto) 0.5 x10^3/uL (0.3-0.8) 07/05/19 04:29 Eos # (Auto) 0.0 x10^3/uL (0.0-0.2) 07/05/19 04:29 Baso # (Auto) 0.0 X10^3/uL (0.0-0.1) 07/05/19 04:29 Absolute Nucleated RBC 0.0 /100WBC 07/05/19 04:29 Total Counted 100 07/05/19 04:29 Neutrophils % (Manual) 91 % (39-76) H 07/05/19 04:29 Band Neutrophils % 2 % (0-10) 07/05/19 04:29 Lymphocytes % (Manual) 4 % (13-43) L 07/05/19 04:29 Monocytes % (Manual) 3 % (4-9) L 07/05/19 04:29 Plt Morphology Comment Normal (NORMAL) 07/05/19 04:29 RBC Morphology Normal (NORMAL) 07/05/19 04:29 Sample Site Lb 07/04/19 09:01 ABG pH 7.460 (7.35-7.45) H 07/04/19 09:01 ABG pCO2 61.0 mmHg (35.0-45.0) H* 07/04/19 09:01 ABG pO2 60.0 mmHg (80.0-100.0) L 07/04/19 09:01 ABG HCO3 43.4 mmol/L (22-26) H* 07/04/19 09:01 ABG O2 Saturation 92.0 % (90-100) 07/04/19 09:01 ABG Base Excess 16.6 mmol/L (-2.0-2.0) H 07/04/19 09:01 Sameer Test Na 07/04/19 09:01 A-a Gradient 63.0 mmHg 07/04/19 09:01 FiO2 28.0 07/04/19 09:01 Blood Gas Comments Pt baltazar well. cdn 07/04/19 09:01 Sodium 136 mmol/L (136-145) 07/05/19 04:29 Corrected Sodium 140 mmol/L (136-145) 07/05/19 04:29 Potassium 4.1 mmol/L (3.5-5.1) 07/05/19 04:29 Chloride 93 mmol/L (98-107) L 07/05/19 04:29 Carbon Dioxide 38.0 mmol/L (21-32) H 07/05/19 04:29 BUN 31 mg/dL (7-18) H 07/05/19 04:29 Creatinine 1.50 mg/dL (0.55-1.02) H 07/05/19 04:29 Est GFR (MDRD) Af Amer 45 (>60) L 07/05/19 04:29 Est GFR (MDRD) Non-Af 37 (>60) L 07/05/19 04:29 Glucose 276 mg/dL (65-99) H 07/05/19 04:29 Calcium 9.0 mg/dL (8.5-10.1) 07/05/19 04:29 Corrected Calcium 9.8 mg/dL (8.5-10.1) 07/05/19 04:29 Total Bilirubin 0.30 mg/dL (0.2-1.0) 07/05/19 04:29 AST 43 Units/L (15-37) H 07/05/19 04:29 ALT 63 Units/L (12-78) 07/05/19 04:29 Alkaline Phosphatase 122 Units/L (46-116) H 07/05/19 04:29 Troponin I < 0.02 ng/mL (0-1.5) 07/03/19 19:55 B-Natriuretic Peptide 27.7 pg/mL (0-79) 07/03/19 12:26 Total Protein 7.5 g/dL (6.4-8.2) 07/05/19 04:29 Albumin 3.0 g/dL (3.4-5.0) L 07/05/19 04:29 Globulin 4.5 g/dL (2.5-4.5) 07/05/19 04:29 Albumin/Globulin Ratio 0.7 Ratio (1.1-2.1) L 07/05/19 04:29 - Plan (1) COPD (chronic obstructive pulmonary disease) with acute bronchitis Status: Acute Plan: CE AND EKG, SERIAL ON ADMISSION. RESP CONSULT, SPUTUM ORDERED ON ADMISSION. AM CXR, HTN CONTROL, SUPPLEMENTAL O2. BIPAP OR PT'S TRILOGY PRN, IV SOLUMEDROL. IV LASIX, TODD CATH WITH STRICT I &OS. VERIFY HOME MEDICATION. REPEAT AM LABS AND ABG (2) Chest pain, rule out acute myocardial infarction Status: Acute (3) Chronic pancreatitis Status: Acute (4) ARF (acute renal failure) Status: Acute (5) CHF (congestive heart failure) Status: Acute (6) Edema Status: Acute (7) GERD with esophagitis Status: Acute (8) DDD (degenerative disc disease), lumbosacral Status: Chronic (9) Essential hypertension Status: Chronic
[2019-07-05] MEDS ORDERED: NS 500 ML IV 500 ML IV ONE (16:07)
[2019-07-05] MEDS: LEVAQUIN PREMIX IV 500 MG 500 MG/100 ML BAG IV SCH (17:00)
[2019-07-05] MEDS: AMBIEN PO PRN (21:10)
[2019-07-05] MEDS: SINGULAIR TAB 10 MG PO SCH (21:10)
[2019-07-05] MEDS: REQUIP PO SCH (21:10)
[2019-07-06] MEDS: PROVENTIL NEB TX 0.083% 2.5MG/ 3ML NEB SCH ×7 (00:45→23:31)
[2019-07-06] MEDS: Atrovent NEB TX 0.02% NEB PRN ×2 (02:46→19:33)
[2019-07-06 05:20] LABS: BASOPHILS % (AUTO) 0.1 % (0.2-1.0); EOSINOPHILS % (AUTO) 0.1 % (0.9-2.9); HEMATOCRIT 33.4 % (36.0-47.0); LYMPHOCYTES # (AUTO) 1.1 X10^3/uL (1.3-2.9); LYMPHOCYTES % (AUTO) 10.5 % (21.0-51.0); MEAN CORPUSCULAR HEMOGLOBIN 30.9 pg (27.0-34.0); MEAN CORPUSCULAR HGB CONC 33.1 g/dL (33.0-35.0); MEAN CORPUSCULAR VOLUME 93.4 fL (80.0-100.0); MEAN PLATELET VOLUME 8.6 fL (7.4-11.0); MONOCYTES # (AUTO) 0.8 x10^3/uL (0.3-0.8); MONOCYTES % (AUTO) 7.9 % (0.0-13.0); NEUTROPHILS # (AUTO) 8.2 x10^3/uL (2.2-4.8); NEUTROPHILS % (AUTO) 81.4 % (42.0-75.0); PLATELET COUNT 248 X10^3/uL (150.0-450.0); RED BLOOD COUNT 3.57 X10^6/uL (3.5-5.4); RED CELL DISTRIBUTION WIDTH 13.7 % (11.6-16.5); WHITE BLOOD COUNT 10.1 X10^3/uL (3.6-10.0)
[2019-07-06 05:26] LABS: ALBUMIN 2.9 g/dL (3.4-5.0); CALCIUM 8.4 mg/dL (8.5-10.1); CARBON DIOXIDE 38.3 mmol/L (21-32); COR CA(FOR HYPOALB) 9.3 mg/dL (8.5-10.1); CREATININE 1.6 mg/dL (0.55-1.02); TOTAL PROTEIN 6.9 g/dL (6.4-8.2)
--- NOTE | 2019-07-06 06:20 | RAD ---
HISTORY: CHF, COPD Study: Single view chest Comparison: 07/04/2019 Findings: Single portable view is limited by underpenetration. Lungs appear stable with mild interstitial prominence in scattered subsegmental atelectasis. Stable right subclavian port. The cardiac and mediastinal contours are within normal limits. The soft tissues are unremarkable. IMPRESSION: 1. Stable chest. Reported By:
[2019-07-06] MEDS: PULMICORT NEB TX 0.5 MG NEB SCH ×3 (08:11→20:11)
[2019-07-06] MEDS: LEVAQUIN PREMIX IV 500 MG 500 MG/100 ML BAG IV SCH (09:02)
[2019-07-06] MEDS: ALDACTONE TAB 25 MG PO SCH (09:03)
[2019-07-06] MEDS: PROTONIX TAB 40 MG PO SCH (09:03)
[2019-07-06] MEDS: CARDIZEM CD 120 MG 24-HR PO SCH (09:03)
[2019-07-06] MEDS: SYNTHROID 25 mcg TAB PO SCH (09:03)
[2019-07-06] MEDS: REGLAN TAB 10 MG PO SCH ×2 (09:03→21:15)
[2019-07-06] MEDS: PERCOCET TAB 5/325 MG PO PRN ×2 (09:16→21:15)
[2019-07-06] MEDS: XANAX PO PRN (09:16)
[2019-07-06] MEDS: LOVENOX INJ 30 MG SYR SC SCH (11:45)
--- NOTE | 2019-07-06 12:07 | RAD ---
History: Abdominal pain Study: KUB, four views Comparison: February 25, 2019 Findings: There are cholecystectomy clips. The bowel gas pattern is unremarkable. No urinary tract calcification is discerned. There are degenerative changes of the spine. Impression: No acute disease Reported By:
[2019-07-06 13:11] LABS: BILIRUBIN,URINE NEGATIVE (NEGATIVE); BLOOD/HEMOGLOBIN,URINE 2+ (NEGATIVE); GLUCOSE, URINE NEGATIVE (NEGATIVE); KETONES,URINE NEGATIVE (NEGATIVE); LEUKOCYTE ESTERASE ,URINE 3+ (NEGATIVE); NITRITES,URINE NEGATIVE (NEGATIVE); PROTEIN,URINE 2+ (NEGATIVE); UROBILINOGEN,URINE NORMAL (NORMAL)
[2019-07-06 13:21] LABS: APPEARANCE,URINE CLOUDY (CLEAR); BACTERIA,URINE 3+ /HPF (NEGATIVE); COLOR,URINE YELLOW (YELLOW); SQUAMOUS EPITHELIAL CELL,UR RARE /HPF (NEGATIVE); URIC ACID CRYSTALS,URINE MODERATE /HPF (NEGATIVE)
[2019-07-06] MEDS ORDERED: VALIUM PO PRN (18:40)
[2019-07-06] MEDS: AMBIEN PO PRN (21:15)
[2019-07-06] MEDS: REQUIP PO SCH (21:15)
[2019-07-06] MEDS: MILK OF MAGNESIA PO PRN (21:15)
[2019-07-06] MEDS: COLACE CAP 100 MG PO PRN (21:15)
[2019-07-06] MEDS: SINGULAIR TAB 10 MG PO SCH (21:15)
[2019-07-07 05:12] LABS: BASOPHILS % (AUTO) 0.3 % (0.2-1.0); EOSINOPHILS # (AUTO) 0.1 x10^3/uL (0.0-0.2); EOSINOPHILS % (AUTO) 1.2 % (0.9-2.9); HEMATOCRIT 33.7 % (36.0-47.0); HEMOGLOBIN 11.1 g/dL (12.0-16.0); LYMPHOCYTES # (AUTO) 1.6 X10^3/uL (1.3-2.9); LYMPHOCYTES % (AUTO) 20.6 % (21.0-51.0); MEAN CORPUSCULAR HEMOGLOBIN 30.7 pg (27.0-34.0); MEAN CORPUSCULAR HGB CONC 32.9 g/dL (33.0-35.0); MEAN CORPUSCULAR VOLUME 93.4 fL (80.0-100.0); MEAN PLATELET VOLUME 8.5 fL (7.4-11.0); MONOCYTES # (AUTO) 0.8 x10^3/uL (0.3-0.8); MONOCYTES % (AUTO) 10.5 % (0.0-13.0); NEUTROPHILS # (AUTO) 5.4 x10^3/uL (2.2-4.8); NEUTROPHILS % (AUTO) 67.4 % (42.0-75.0); PLATELET COUNT 222 X10^3/uL (150.0-450.0); RED BLOOD COUNT 3.61 X10^6/uL (3.5-5.4); RED CELL DISTRIBUTION WIDTH 13.9 % (11.6-16.5); WHITE BLOOD COUNT 7.9 X10^3/uL (3.6-10.0)
[2019-07-07 05:24] LABS: ALBUMIN 2.9 g/dL (3.4-5.0); CALCIUM 8.8 mg/dL (8.5-10.1); CARBON DIOXIDE 39.1 mmol/L (21-32); COR CA(FOR HYPOALB) 9.7 mg/dL (8.5-10.1); CREATININE 1.31 mg/dL (0.55-1.02); TOTAL PROTEIN 6.8 g/dL (6.4-8.2)
[2019-07-07] MEDS: PROVENTIL NEB TX 0.083% 2.5MG/ 3ML NEB SCH ×4 (06:27→16:38)
[2019-07-07] MEDS: REGLAN TAB 10 MG PO SCH ×2 (08:36→20:42)
[2019-07-07] MEDS: LEVAQUIN PREMIX IV 500 MG 500 MG/100 ML BAG IV SCH (08:36)
[2019-07-07] MEDS: SYNTHROID 25 mcg TAB PO SCH (08:36)
[2019-07-07] MEDS: PROTONIX TAB 40 MG PO SCH (08:36)
[2019-07-07] MEDS: CARDIZEM CD 120 MG 24-HR PO SCH (08:37)
[2019-07-07] MEDS: NEURONTIN TAB 600 MG PO SCH ×2 (08:37→20:41)
[2019-07-07] MEDS: PERCOCET TAB 5/325 MG PO PRN ×2 (08:38→17:20)
[2019-07-07] MEDS: ALDACTONE TAB 25 MG PO SCH (08:38)
[2019-07-07] MEDS: LOVENOX INJ 30 MG SYR SC SCH (08:39)
[2019-07-07] MEDS ORDERED: MORPHINE SULFATE INJ 2 MG INJ IVP ONE (09:10)
[2019-07-07] MEDS: PULMICORT NEB TX 0.5 MG NEB SCH ×2 (09:13→20:52)
[2019-07-07] MEDS: Atrovent NEB TX 0.02% NEB PRN ×3 (09:14→20:52)
[2019-07-07] MEDS ORDERED: CREON PO SCH (12:00)
[2019-07-07] MEDS: LASIX IVP SCH ×2 (12:35→20:35)
[2019-07-07 16:46] LABS: ABG BASE EXCESS 14.9 mmol/L (-2.0-2.0)
[2019-07-07 16:47] LABS: ABG ALLEN TEST POS; ABG HCO3 41.3 mmol/L (22-26)
[2019-07-07] MEDS: CREON PO SCH ×2 (17:13→17:16)
[2019-07-07] MEDS: REQUIP PO SCH (19:42)
[2019-07-07] MEDS: MILK OF MAGNESIA PO PRN (20:40)
[2019-07-07] MEDS: XANAX PO PRN (20:41)
[2019-07-07] MEDS: SINGULAIR TAB 10 MG PO SCH (20:41)
[2019-07-07] MEDS: COLACE CAP 100 MG PO PRN (20:41)
[2019-07-07] MEDS: AMBIEN PO PRN (20:44)
[2019-07-08] MEDS: PROVENTIL NEB TX 0.083% 2.5MG/ 3ML NEB SCH ×4 (00:55→17:07)
[2019-07-08 05:01] LABS: BASOPHILS # (AUTO) 0.1 X10^3/uL (0.0-0.1); BASOPHILS % (AUTO) 0.6 % (0.2-1.0); EOSINOPHILS # (AUTO) 0.2 x10^3/uL (0.0-0.2); EOSINOPHILS % (AUTO) 2.7 % (0.9-2.9); HEMATOCRIT 36.9 % (36.0-47.0); HEMOGLOBIN 12.2 g/dL (12.0-16.0); LYMPHOCYTES # (AUTO) 1.7 X10^3/uL (1.3-2.9); LYMPHOCYTES % (AUTO) 18.9 % (21.0-51.0); MEAN CORPUSCULAR HEMOGLOBIN 30.9 pg (27.0-34.0); MEAN CORPUSCULAR HGB CONC 33.1 g/dL (33.0-35.0); MEAN CORPUSCULAR VOLUME 93.4 fL (80.0-100.0); MEAN PLATELET VOLUME 8.9 fL (7.4-11.0); MONOCYTES # (AUTO) 0.7 x10^3/uL (0.3-0.8); MONOCYTES % (AUTO) 8.1 % (0.0-13.0); NEUTROPHILS # (AUTO) 6.3 x10^3/uL (2.2-4.8); NEUTROPHILS % (AUTO) 69.7 % (42.0-75.0); PLATELET COUNT 252 X10^3/uL (150.0-450.0); RED BLOOD COUNT 3.95 X10^6/uL (3.5-5.4); WHITE BLOOD COUNT 9.1 X10^3/uL (3.6-10.0)
[2019-07-08 05:12] LABS: ALBUMIN 3.3 g/dL (3.4-5.0); CALCIUM 9.3 mg/dL (8.5-10.1); CARBON DIOXIDE 38.9 mmol/L (21-32); COR CA(FOR HYPOALB) 9.9 mg/dL (8.5-10.1); CREATININE 1.29 mg/dL (0.55-1.02); TOTAL PROTEIN 7.5 g/dL (6.4-8.2)
[2019-07-08] MEDS: CREON PO SCH ×3 (06:14→17:58)
[2019-07-08] MEDS: PULMICORT NEB TX 0.5 MG NEB SCH ×2 (08:59→21:05)
[2019-07-08] MEDS: Atrovent NEB TX 0.02% NEB PRN ×3 (08:59→17:07)
[2019-07-08] MEDS: MILK OF MAGNESIA PO PRN (09:25)
[2019-07-08] MEDS: PROTONIX TAB 40 MG PO SCH (09:26)
[2019-07-08] MEDS: NEURONTIN TAB 600 MG PO SCH (09:26)
[2019-07-08] MEDS: REGLAN TAB 10 MG PO SCH ×2 (09:26→20:09)
[2019-07-08] MEDS: SYNTHROID 25 mcg TAB PO SCH (09:26)
[2019-07-08] MEDS: COLACE CAP 100 MG PO PRN (09:26)
[2019-07-08] MEDS: LOVENOX INJ 30 MG SYR SC SCH (09:26)
[2019-07-08] MEDS: XANAX PO PRN ×2 (09:26→20:09)
[2019-07-08] MEDS: ALDACTONE TAB 25 MG PO SCH (09:26)
[2019-07-08] MEDS: CARDIZEM CD 120 MG 24-HR PO SCH (09:26)
[2019-07-08] MEDS: PERCOCET TAB 5/325 MG PO PRN ×2 (10:01→20:10)
[2019-07-08] MEDS ORDERED: DULCOLAX SUPPOSITORY 10 MG RECTAL ONE (10:23)
[2019-07-08] MEDS: ROCEPHIN VIAL 1 GRAM 1 G in NS 100 ML IV + SPIKE MINIBAG* 100 ML IV SCH (12:09)
[2019-07-08] MEDS: NEURONTIN CAP 300 MG PO SCH ×2 (12:12→20:14)
[2019-07-08] MEDS ORDERED: MORPHINE SULFATE INJ 2 MG INJ IVP ONE (13:18)
[2019-07-08] MEDS: MIRALAX POWDER (1 DOSE 17 G) PO SCH ×2 (20:08→20:14)
[2019-07-08] MEDS: MILK OF MAGNESIA PO SCH ×2 (20:08→20:13)
[2019-07-08] MEDS: SINGULAIR TAB 10 MG PO SCH (20:09)
[2019-07-08] MEDS: COLACE CAP 100 MG PO SCH (20:09)
[2019-07-08] MEDS: REQUIP PO SCH (20:09)
[2019-07-08] MEDS: AMBIEN PO PRN (20:09)
[2019-07-09] MEDS: PROVENTIL NEB TX 0.083% 2.5MG/ 3ML NEB SCH ×6 (00:38→20:56)
[2019-07-09 05:42] LABS: BASOPHILS # (AUTO) 0.1 X10^3/uL (0.0-0.1); BASOPHILS % (AUTO) 0.6 % (0.2-1.0); EOSINOPHILS # (AUTO) 0.3 x10^3/uL (0.0-0.2); EOSINOPHILS % (AUTO) 2.9 % (0.9-2.9); HEMATOCRIT 35.5 % (36.0-47.0); HEMOGLOBIN 11.7 g/dL (12.0-16.0); LYMPHOCYTES # (AUTO) 2.2 X10^3/uL (1.3-2.9); LYMPHOCYTES % (AUTO) 20.3 % (21.0-51.0); MEAN CORPUSCULAR HGB CONC 32.9 g/dL (33.0-35.0); MEAN CORPUSCULAR VOLUME 94.3 fL (80.0-100.0); MEAN PLATELET VOLUME 8.8 fL (7.4-11.0); MONOCYTES # (AUTO) 0.8 x10^3/uL (0.3-0.8); MONOCYTES % (AUTO) 7.7 % (0.0-13.0); NEUTROPHILS # (AUTO) 7.4 x10^3/uL (2.2-4.8); NEUTROPHILS % (AUTO) 68.5 % (42.0-75.0); PLATELET COUNT 230 X10^3/uL (150.0-450.0); RED BLOOD COUNT 3.76 X10^6/uL (3.5-5.4); WHITE BLOOD COUNT 10.7 X10^3/uL (3.6-10.0)
[2019-07-09 05:47] LABS: CALCIUM 9.1 mg/dL (8.5-10.1); CARBON DIOXIDE 37.8 mmol/L (21-32); COR CA(FOR HYPOALB) 9.9 mg/dL (8.5-10.1); CREATININE 1.19 mg/dL (0.55-1.02); TOTAL PROTEIN 7.1 g/dL (6.4-8.2)
[2019-07-09] MEDS: CREON PO SCH ×3 (06:33→18:10)
[2019-07-09] MEDS: PULMICORT NEB TX 0.5 MG NEB SCH ×2 (09:27→20:56)
[2019-07-09] MEDS: PHENERGAN INJ 25 MG IM PRN ×2 (09:30→18:09)
[2019-07-09] MEDS: XANAX PO PRN ×2 (09:30→20:38)
[2019-07-09] MEDS: REGLAN TAB 10 MG PO SCH ×2 (09:34→20:37)
[2019-07-09] MEDS: SYNTHROID 25 mcg TAB PO SCH (09:34)
[2019-07-09] MEDS: PROTONIX TAB 40 MG PO SCH (09:34)
[2019-07-09] MEDS: ROCEPHIN VIAL 1 GRAM 1 G in NS 100 ML IV + SPIKE MINIBAG* 100 ML IV SCH (09:34)
[2019-07-09] MEDS: ALDACTONE TAB 25 MG PO SCH (09:34)
[2019-07-09] MEDS: CARDIZEM CD 120 MG 24-HR PO SCH (09:34)
[2019-07-09] MEDS: COLACE CAP 100 MG PO SCH ×2 (09:35→20:37)
[2019-07-09] MEDS: NEURONTIN CAP 300 MG PO SCH ×2 (09:35→20:36)
[2019-07-09] MEDS: MILK OF MAGNESIA PO SCH ×3 (09:35→20:38)
[2019-07-09] MEDS: LOVENOX INJ 30 MG SYR SC SCH (09:35)
[2019-07-09] MEDS ORDERED: PROVENTIL NEB TX 0.083% 2.5MG/ 3ML NEB SCH (10:15)
[2019-07-09] MEDS: PERCOCET TAB 5/325 MG PO PRN ×2 (11:00→17:26)
[2019-07-09] MEDS: FLONASE NASAL SPRAY ENOSTRIL SCH (11:01)
[2019-07-09] MEDS: ROBITUSSIN DM PO PRN (11:01)
[2019-07-09] MEDS: AMBIEN PO PRN (20:37)
[2019-07-09] MEDS: SINGULAIR TAB 10 MG PO SCH (20:37)
[2019-07-09] MEDS: REQUIP PO SCH (20:38)
[2019-07-09] MEDS: MIRALAX POWDER (1 DOSE 17 G) PO SCH (20:55)
[2019-07-09] MEDS ORDERED: ULTRAM PO PRN (21:13)
[2019-07-10] MEDS: PROVENTIL NEB TX 0.083% 2.5MG/ 3ML NEB SCH ×3 (04:05→07:50)
[2019-07-10 05:22] LABS: BASOPHILS % (AUTO) 0.5 % (0.2-1.0); EOSINOPHILS # (AUTO) 0.4 x10^3/uL (0.0-0.2); EOSINOPHILS % (AUTO) 3.8 % (0.9-2.9); HEMATOCRIT 34.1 % (36.0-47.0); HEMOGLOBIN 11.3 g/dL (12.0-16.0); LYMPHOCYTES # (AUTO) 1.8 X10^3/uL (1.3-2.9); LYMPHOCYTES % (AUTO) 19.1 % (21.0-51.0); MEAN CORPUSCULAR HEMOGLOBIN 31.1 pg (27.0-34.0); MEAN CORPUSCULAR HGB CONC 33.2 g/dL (33.0-35.0); MEAN CORPUSCULAR VOLUME 93.7 fL (80.0-100.0); MEAN PLATELET VOLUME 8.4 fL (7.4-11.0); MONOCYTES # (AUTO) 0.6 x10^3/uL (0.3-0.8); NEUTROPHILS # (AUTO) 6.6 x10^3/uL (2.2-4.8); NEUTROPHILS % (AUTO) 70.6 % (42.0-75.0); PLATELET COUNT 223 X10^3/uL (150.0-450.0); RED BLOOD COUNT 3.64 X10^6/uL (3.5-5.4); RED CELL DISTRIBUTION WIDTH 14.1 % (11.6-16.5); WHITE BLOOD COUNT 9.4 X10^3/uL (3.6-10.0)
[2019-07-10 05:29] LABS: ALANINE AMINOTRANSFERASE 98 Units/L (12-78); ALBUMIN 2.9 g/dL (3.4-5.0); ALKALINE PHOSPHATASE 126 Units/L (46-116); ASPARTATE AMINO TRANSFERASE 53 Units/L (15-37); BLOOD UREA NITROGEN 19 mg/dL (7-18); CARBON DIOXIDE 37.1 mmol/L (21-32); CHLORIDE 103 mmol/L (98-107); COR CA(FOR HYPOALB) 9.9 mg/dL (8.5-10.1); COR NA(FOR HYPERGLY) 144 mmol/L (136-145); CREATININE 1.04 mg/dL (0.55-1.02); SODIUM 143 mmol/L (136-145); TOTAL PROTEIN 6.8 g/dL (6.4-8.2); eGFR NON BLACK RACES 56 (>60)
[2019-07-10] MEDS: CREON PO SCH (08:01)
[2019-07-10] MEDS: PHENERGAN INJ 25 MG IM PRN (08:03)
[2019-07-10] MEDS: ROCEPHIN VIAL 1 GRAM 1 G in NS 100 ML IV + SPIKE MINIBAG* 100 ML IV SCH (08:42)
[2019-07-10] MEDS: XANAX PO PRN (08:44)
[2019-07-10] MEDS: NEURONTIN CAP 300 MG PO SCH (08:44)
[2019-07-10] MEDS: REGLAN TAB 10 MG PO SCH (08:45)
[2019-07-10] MEDS: SYNTHROID 25 mcg TAB PO SCH (08:45)
[2019-07-10] MEDS: ROBITUSSIN DM PO PRN (08:45)
[2019-07-10] MEDS: ALDACTONE TAB 25 MG PO SCH (08:45)
[2019-07-10] MEDS: PROTONIX TAB 40 MG PO SCH (08:45)
[2019-07-10] MEDS: LOVENOX INJ 30 MG SYR SC SCH (08:45)
[2019-07-10] MEDS: COLACE CAP 100 MG PO SCH (08:45)
[2019-07-10] MEDS: CARDIZEM CD 120 MG 24-HR PO SCH (08:45)
[2019-07-10] MEDS: FLONASE NASAL SPRAY ENOSTRIL SCH (08:46)
[2019-07-10] MEDS: MILK OF MAGNESIA PO SCH (08:48)
[2019-07-10] MEDS: PULMICORT NEB TX 0.5 MG NEB SCH (08:55)
[2019-07-10] MEDS: PERCOCET TAB 5/325 MG PO PRN (12:15)
[2019-07-10 12:36] VITALS: BP 141/58
--- NOTE | 2019-07-10 13:09 | RAD ---
HISTORY: Congestive heart failure. COPD. Shortness of breath. Study: Single-view chest. Comparison: 07/06/2019. Findings: The trachea is midline. The cardiac silhouette is at the upper limits of normal in size given the portable technique. Right-sided [id number] is present with tip projecting over the mid SVC. There is mild diffuse interstitial prominence throughout both lungs without focal consolidation, pleural effusion or pneumothorax. The bony thorax is grossly unchanged. IMPRESSION: Unchanged exam with mild pulmonary edema pattern. Reported By:
== END 2019-07-10 14:13 | disposition home or self-care (01) | DRG 190 ==
LOC: ER 11:50 → MED/SURG 11:50
PROVIDERS: ADMIT Internal Medicine; ATTEND Internal Medicine
DX: J20.8 Acute bronchitis due to other specified organisms; R60.0 Localized edema; M13.89 Other specified arthritis, multiple sites; M79.602 Pain in left arm; R06.02 Shortness of breath; I50.9 Heart failure, unspecified; M51.36 Other intervertebral disc degeneration, lumbar region; K85.90 Acute pancreatitis without necrosis or infection, unspecified; J44.1 Chronic obstructive pulmonary disease with (acute) exacerbation; I25.10 Atherosclerotic heart disease of native coronary artery without angina pectoris; I11.0 Hypertensive heart disease with heart failure; B96.1 Klebsiella pneumoniae [K. pneumoniae] as the cause of diseases classified elsewhere; R07.89 Other chest pain; R06.89 Other abnormalities of breathing; N39.0 Urinary tract infection, site not specified; B96.29 Other Escherichia coli [E. coli] as the cause of diseases classified elsewhere; N18.3 Chronic kidney disease, stage 3 (moderate); K21.0 Gastro-esophageal reflux disease with esophagitis; N17.8 Other acute kidney failure
CPT/HCPCS: 36415; 36600; 51702; 71010; 71045; 74000; 74018; 80048; 80053; 81001; 82803; 83880; 84484; 85025; 87086; 87088; 87186; 93005; 94640; 94660; 94760; 96374; 99284; A4222; A4618; A7030; G0378; J0696; J1642; J1650; J1940; J1956; J2270; J2550; J2930; J7040; J7050; J7613; J7626; J7644; S0119; S0181

== ENCOUNTER 2019-08-18 04:22 | Inpatient (IN) ==
[2019-08-18 04:40] VITALS: BMI 61.3
--- NOTE | 2019-08-18 05:05 | DR.NAUSEAF ---
HPI - Time Seen Time seen: 05:00 - Primary Care Physician Primary Care Physician: TING CHAO - Complaints Chief Complaint:: [facility] DISPATCHED OUT TO PATIENT FOR MEDICAL ALARM FOR N/V/D. PATIENT STATES THAT I HAVE BEEN N/V/D FOR A WEEK NOW AND MY STOOLS ARE DARK." - Reviewed Nurses Notes Reviewed: Yes - Source History Provided: Patient, EMS - Mode of Arrival Mode of Arrival: EMS - Timing Onset of Chief Complaint: 08/12/19 - Context Onset: After Drinking - Quality Quality: Other (dry heaving) - Associated Signs and Symptoms Abdominal Pain Quality: Aching Abdominal Pain Location: Suprapubic Symptoms: Abdominal Pain, Diarrhea PMH - PMH Past Medical History: Yes Past Medical History: Coronary Artery Disease, Hypertension, Dyslipidemia, Diabetes, Anxiety, Anemia, COPD, GERD, CHF Past Surgical History: Yes Surgical History: Appendectomy, Bowel Resection, CABG/Valve Surgery, 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, Hysterectomy, Tonsillectomy - Family History History of Family Medical Conditions: Yes Family Medical History: Diabetes Mellitus, Hypertension - Social History Alcohol Use: None Do you use any recreational Drugs:: No Lives Where: Home - infectious screening Have you traveled outside the country in the last 6 months?: No Isolation: Standard ROS - Review of Systems Constitutional: No Symptoms Reported Eyes: No Symptoms Reported ENTM: No Symptoms Reported Respiratoy: No Symptoms Reported Cardiovascular: No Symptoms Reported Gastrointestinal/Abdominal: Diarrhea, Nausea, Vomiting Genitourinary: No Symptoms Reported Neurological: No Symptoms Reported Musculoskeletal: No Symptoms Reported Integumentary: No Symptoms Reported Hematologic/Lymphatic: No Symptoms Reported Endocrine: No Symptoms Reported Psychiatric: Depression All Other Systems: Reviewed and Negative PE - General Limitations: No Limitations General Appearance: Alert, In No Apparent Distress - Head Head Exam: Normal Inspection - Eyes Eye exam: Normal Appearance, EOMI - ENT ENT Exam: Normal Exam, Normal Oropharynx - Neck Neck Exam: Normal Inspection, Full ROM, Trachea Midline - Chest Chest Inspection: Normal Inspection - Respiratory Respiratory Exam: Normal Lung Sounds Bilat Respiratory Exam: Bilateral Clear to Auscultation - Cardiovascular Cardiovascular Exam: Tachycardia - Abdominal Exam Abdominal Exam: Normal Inspection, Normal Bowel Sounds, Soft, Tenderness ( diffuse). negative: Distention, Guarding Abdominal Tenderness: Diffuse - Rectal Rectal Exam: Deferred - Extremities Extremities Exam: Normal Inspection - Back Back Exam: Normal Inspection - Neurologic Neurological Exam: Alert, Oriented X3 - Psychiatric Psychiatric Exam: Depressed - Skin Skin Exam: Intact, Normal Color - Vital Signs Vitals: Temperature 98.2 F Pulse Rate 111 Respiratory Rate 18 Blood Pressure [Left Arm] 135/70 Blood Pressure [Right Arm] 143/74 Blood Pressure 130/71 O2 Sat by Pulse Oximetry 97 ROR - Labs Reviewed Result Diagrams: 08/25/19 05:23 08/25/19 05:23 - Labs Reviewed Laboratory: WBC 8.5 X10^3/uL (3.6-10.0) 08/18/19 05:22 RBC 4.06 X10^6/uL (3.5-5.4) 08/18/19 05:22 Hgb 12.5 g/dL (12.0-16.0) 08/18/19 05:22 Hct 37.8 % (36.0-47.0) 08/18/19 05:22 MCV 93.1 fL (80.0-100.0) 08/18/19 05:22 MCH 30.7 pg (27.0-34.0) 08/18/19 05:22 MCHC 33.0 g/dL (33.0-35.0) 08/18/19 05:22 RDW 14.5 % (11.6-16.5) 08/18/19 05:22 Plt Count 389 X10^3/uL (150.0-450.0) 08/18/19 05:22 MPV 8.7 fL (7.4-11.0) 08/18/19 05:22 Neut % (Auto) 63.6 % (42.0-75.0) 08/18/19 05:22 Lymph % (Auto) 21.9 % (21.0-51.0) 08/18/19 05:22 [place] % (Auto) 11.1 % (0.0-13.0) 08/18/19 05:22 Eos % (Auto) 3.2 % (0.9-2.9) H 08/18/19 05:22 Baso % (Auto) 0.2 % (0.2-1.0) 08/18/19 05:22 Neut # (Auto) 5.4 x10^3/uL (2.2-4.8) H 08/18/19 05:22 Lymph # (Auto) 1.9 X10^3/uL (1.3-2.9) 08/18/19 05:22 [place] # (Auto) 0.9 x10^3/uL (0.3-0.8) H 08/18/19 05:22 Eos # (Auto) 0.3 x10^3/uL (0.0-0.2) H 08/18/19 05:22 Baso # (Auto) 0.0 X10^3/uL (0.0-0.1) 08/18/19 05:22 Absolute Nucleated RBC 0.0 /100WBC 08/18/19 05:22 Sodium 139 mmol/L (136-145) 08/18/19 05:22 Corrected Sodium 140 mmol/L (136-145) 08/18/19 05:22 Potassium 3.7 mmol/L (3.5-5.1) 08/18/19 05:22 Chloride 95 mmol/L (98-107) L 08/18/19 05:22 Carbon Dioxide 37.1 mmol/L (21-32) H 08/18/19 05:22 BUN 16 mg/dL (7-18) 08/18/19 05:22 Creatinine 1.87 mg/dL (0.55-1.02) H 08/18/19 05:22 Est GFR (MDRD) Af Amer 35 (>60) L 08/18/19 05:22 Est GFR (MDRD) Non-Af 29 (>60) L 08/18/19 05:22 Glucose 140 mg/dL (65-99) H 08/18/19 05:22 Calcium 9.0 mg/dL (8.5-10.1) 08/18/19 05:22 Corrected Calcium 9.7 mg/dL (8.5-10.1) 08/18/19 05:22 Total Bilirubin 0.70 mg/dL (0.2-1.0) 08/18/19 05:22 AST 58 Units/L (15-37) H 08/18/19 05:22 ALT 29 Units/L (12-78) 08/18/19 05:22 Alkaline Phosphatase 166 Units/L (46-116) H 08/18/19 05:22 Total Protein 7.5 g/dL (6.4-8.2) 08/18/19 05:22 Albumin 3.1 g/dL (3.4-5.0) L 08/18/19 05:22 Globulin 4.4 g/dL (2.5-4.5) 08/18/19 05:22 Albumin/Globulin Ratio 0.7 Ratio (1.1-2.1) L 08/18/19 05:22 Lipase 187 Units/L (73-393) 08/18/19 05:22 Opioid - Opioid Risk Tool Age (Jann box if 16-45): No History of Preadolescent Sexual Abuse: No Total: 0 Total Score Risk Category: Low Risk - Diagnosis Discharge Problem: Nausea and vomiting Qualifiers: Vomiting type: unspecified Vomiting Intractability: non-intractable Qualified Code(s): R11.2 - Nausea with vomiting, unspecified - Discharge Plan Disposition: ADMITTED INPATIENT Condition: Stable
[2019-08-18] MEDS ORDERED: NS 500 ML IV 500 ML IV ONE ×2 (05:12→05:38)
[2019-08-18] MEDS ORDERED: ZOFRAN INJ 4 MG VIAL IVP ONE ×2 (05:13→06:56)
[2019-08-18] MEDS ORDERED: PROTONIX INJ 40 MG VIAL IVP ONE (05:36)
[2019-08-18 05:37] LABS: BASOPHILS % (AUTO) 0.2 % (0.2-1.0); EOSINOPHILS # (AUTO) 0.3 x10^3/uL (0.0-0.2); EOSINOPHILS % (AUTO) 3.2 % (0.9-2.9); HEMATOCRIT 37.8 % (36.0-47.0); HEMOGLOBIN 12.5 g/dL (12.0-16.0); LYMPHOCYTES # (AUTO) 1.9 X10^3/uL (1.3-2.9); LYMPHOCYTES % (AUTO) 21.9 % (21.0-51.0); MEAN CORPUSCULAR HEMOGLOBIN 30.7 pg (27.0-34.0); MEAN CORPUSCULAR VOLUME 93.1 fL (80.0-100.0); MEAN PLATELET VOLUME 8.7 fL (7.4-11.0); MONOCYTES # (AUTO) 0.9 x10^3/uL (0.3-0.8); MONOCYTES % (AUTO) 11.1 % (0.0-13.0); NEUTROPHILS # (AUTO) 5.4 x10^3/uL (2.2-4.8); NEUTROPHILS % (AUTO) 63.6 % (42.0-75.0); PLATELET COUNT 389 X10^3/uL (150.0-450.0); RED BLOOD COUNT 4.06 X10^6/uL (3.5-5.4); RED CELL DISTRIBUTION WIDTH 14.5 % (11.6-16.5); WHITE BLOOD COUNT 8.5 X10^3/uL (3.6-10.0)
[2019-08-18] MEDS ORDERED: PROTONIX INJ 40 MG VIAL ONE (05:38)
[2019-08-18] MEDS ORDERED: ZOFRAN INJ 4 MG VIAL ONE ×2 (05:38→07:00)
[2019-08-18 05:50] LABS: ALBUMIN 3.1 g/dL (3.4-5.0); CARBON DIOXIDE 37.1 mmol/L (21-32); COR CA(FOR HYPOALB) 9.7 mg/dL (8.5-10.1); CREATININE 1.87 mg/dL (0.55-1.02); TOTAL PROTEIN 7.5 g/dL (6.4-8.2)
[2019-08-18] MEDS ORDERED: PHENERGAN INJ 25 MG IM ONE ×3 (07:46→17:14)
[2019-08-18] MEDS: NS 1000 ML 1,000 ML IV SCH ×2 (10:15→21:14)
[2019-08-18] MEDS: DUONEB 0.5 MG/3 MG (3 mL) NEB SCH ×3 (12:03→17:27)
[2019-08-18] MEDS: ZOFRAN INJ 4 MG VIAL IVP PRN ×2 (15:14→22:35)
[2019-08-18] MEDS ORDERED: BROVANA IN SCH (21:00)
[2019-08-18] MEDS ORDERED: BUTT CREAM (COMPOUND) TOP PRN (22:50)
[2019-08-19] MEDS: DUONEB 0.5 MG/3 MG (3 mL) NEB SCH ×5 (00:05→20:44)
[2019-08-19] MEDS ORDERED: PHENERGAN INJ 25 MG IM ONE (01:40)
[2019-08-19] MEDS: PHENERGAN INJ 25 MG IM PRN ×3 (01:41→22:13)
[2019-08-19] MEDS: NS 1000 ML 1,000 ML IV SCH (05:35)
[2019-08-19] MEDS: ZOFRAN INJ 4 MG VIAL IVP PRN ×2 (06:05→16:51)
[2019-08-19 06:16] LABS: BASOPHILS # (AUTO) 0.1 X10^3/uL (0.0-0.1); BASOPHILS % (AUTO) 1.2 % (0.2-1.0); EOSINOPHILS # (AUTO) 0.3 x10^3/uL (0.0-0.2); HEMOGLOBIN 11.9 g/dL (12.0-16.0); LYMPHOCYTES # (AUTO) 1.3 X10^3/uL (1.3-2.9); MEAN CORPUSCULAR HEMOGLOBIN 30.3 pg (27.0-34.0); MEAN CORPUSCULAR HGB CONC 32.9 g/dL (33.0-35.0); MONOCYTES # (AUTO) 0.7 x10^3/uL (0.3-0.8); MONOCYTES % (AUTO) 9.5 % (0.0-13.0); NEUTROPHILS # (AUTO) 4.6 x10^3/uL (2.2-4.8); NEUTROPHILS % (AUTO) 66.3 % (42.0-75.0); PLATELET COUNT 317 X10^3/uL (150.0-450.0); RED BLOOD COUNT 3.92 X10^6/uL (3.5-5.4); RED CELL DISTRIBUTION WIDTH 14.5 % (11.6-16.5)
[2019-08-19 06:50] LABS: CALCIUM 8.7 mg/dL (8.5-10.1); CARBON DIOXIDE 35.4 mmol/L (21-32); COR CA(FOR HYPOALB) 9.5 mg/dL (8.5-10.1); CREATININE 1.52 mg/dL (0.55-1.02); TOTAL PROTEIN 7.2 g/dL (6.4-8.2)
[2019-08-19] MEDS ORDERED: REGLAN INJ 10 MG VIAL IVP PRN (08:15)
--- NOTE | 2019-08-19 08:55 | RAD ---
HISTORYAbdominal pain and distention and vomitingSTUDYKUB, two viewsCOMPARISONJuly 2018FINDINGSThere is moderate gas distention of the stomach. There are cholecystectomy clips. There is prominent in gas in the colon, nondistended. There is a dilated loop of small bowel in the mid abdomen measuring about 5 cysts cm diameter.IMPRESSIONProminent gas in stomach and a mid loop of small bowel. Findings may reflect a localized ileus, that may be secondary to inflammatory process of the pancreas. However I cannot exclude a proximal small bowel obstruction.Electronically signed by: DALIA MACK (Aug 19, 2019 08:50:14)
[2019-08-19] MEDS: PROTONIX INJ 40 MG VIAL IVP SCH (09:07)
[2019-08-19] MEDS: MORPHINE SULFATE INJ 2 MG INJ IVP PRN (09:15)
[2019-08-19 09:44] LABS: AMYLASE 37 Units/L (25-115); LIPASE 293 Units/L (73-393)
[2019-08-19] MEDS ORDERED: ATIVAN INJ 2 MG VIAL IVP SCH (10:00)
[2019-08-19] MEDS: ZITHROMAX INJ 500 MG VIAL 500 MG in NS 250 ML IV 250 ML IV SCH (10:14)
--- NOTE | 2019-08-19 12:36 | DR.H&P ---
H&P - History & Physical for Day of: H&P Date: 08/18/19 - Chief Complaint Chief Complaint: ABDOMINAL PAIN, N/V/D - History of Present Illness History of Present Illness: PT IS 64 WF ER ADMISSION WITH CO ABDOMINAL PAIN WITH N/D/V X 3 DAYS. PT WAS SEEN IN ER 2 WEEKS PRIOR TO URI SYMPTOMS. PT HAS BEEN ON PO ANTIBIOTICS FOR SINUSITIS. PT HAS HX OF GERD AND PANCREATIC TUMOR, WITH BIOPSY NEGATIVE FOR CANCER ~2YEARS AGO AT [facility] IN [place]. PT WAS SEEN IN OFFICE YESTERDAY WITH LABS OBTAINED AND CT ORDERED. PT WAS GIVEN IM PHENERGAN, SHE HAD NO VOMITING WHILE IN OFFICE. PT EVALUATED IN ER, ADMITTED FOR ACUTE GI ILLNESS. - Past Medical History Past Medical History: Anemia, Anxiety, CHF, COPD, Coronary Artery Disease, Diabetes, Dyslipidemia, GERD, Hypertension, Renal Disease - Past Surgical History Surgical History: Appendectomy, Bowel Resection, CABG/Valve Surgery, YEAST PUMPER Surgery, Hysterectomy, Tonsillectomy - Family History Family Medical History: Diabetes Mellitus, Hypertension - Social History Does patient currently use any type of tobacco product: No Have you used tobacco products in the last 12 months: No (PREVIOUS HEAVY SMOKER) Type of Tobacco Use: None Does any household member use tobacco: No Alcohol Use: None Drug Use: None Risks, benefits, and alternatives of opioids discussed: Yes Prescription drug monitoring program results: PDMP reviewed and no concerns identified - Medications Home Medications: ketorolac [From Toradol] Allergy (Verified 07/27/19 11:35) Penicillins Allergy (Verified 07/27/19 11:35) Sulfa (Sulfonamide Antibiotics) [SULFA] Allergy (Verified 07/27/19 11:35) BETA BLOCKERS Allergy (Uncoded 07/27/19 11:35) CONTINUE taking the following medications cetirizine 10 mg PO HS 08/18/19 [History] colesevelam [WelChol] 3.75 g PO DAILY 08/18/19 [History] fluticasone furoate 2 spray INTRANASAL DAILY 08/18/19 [History] ipratropium-albuterol [Combivent Respimat] 1 puff INHALATION QID 08/18/19 [History] levocetirizine 5 mg PO QHS 08/18/19 [History] yclitf-svwzkdqg-aqdeunt [Creon] 2 cap PO TID 08/18/19 [History] sucralfate 1 g PO ACHS 08/18/19 [History] topiramate 25 mg PO BID 08/18/19 [History] - Review of Systems Constitutional: Weakness Eyes: No Symptoms Reported ENT: No Symptoms Reported Respiratory: Shortness of Breath Cardiovascular: No Symptoms Reported, Edema Gastrointestinal: Nausea, Vomiting, Abdominal Pain, Diarrhea Genitourinary: Frequency Musculoskeletal: Back Pain Skin: No Symptoms Reported Neurological: Weakness - Physical Exam Vital Signs: Temperature 98.9 F Pulse Rate 101 Respiratory Rate 19 Blood Pressure [Left Arm] 135/70 Blood Pressure [Right Arm] 156/67 Blood Pressure 141/67 O2 Sat by Pulse Oximetry 99 Oriented: Normal Eyes: Normal Ear: Normal Nose: Normal Throat: Dry Respiratory: RML Diminished, RLL Diminished, LML Diminished, LLL Diminished Cardiovascular: Edema : Normal Auscultation: Bowel Sounds: Increased Palpation: Other (DISTENTION) Tenderness: Diffuse Skin: Decreased Turgur Musculoskeletal: Leg, Back:Lumbar, Swelling Psychiatric: Anxiety Affect: Anxious Speech Pattern: Clear, Appropriate - Assessment/Plan (1) Abdominal pain Status: Acute Plan: ADMIT, NPO. GENTLE IV HYDRATION PAIN AND NAUSEA CONTROL. ABD/PELVIS CT. AM LABS, RESP CONSULT FOR DUO NEBS FOR COPD MANAGEMENT. VERIFY HOME MEDICATION, BP CONTROL. STRICT I& OS, DAILY WEIGHTS, STOOL STUDIES (2) Nausea & vomiting Status: Acute (3) CHF (congestive heart failure) Qualifiers: Heart failure type: systolic Heart failure chronicity: chronic Qualified Code(s): I50.22 - Chronic systolic (congestive) heart failure Status: Acute (4) CKD (chronic kidney disease) stage 3, GFR 30-59 ml/min Status: Acute (5) COPD (chronic obstructive pulmonary disease) Qualifiers: COPD type: emphysema Emphysema type: unspecified Qualified Code(s): J43.9 - Emphysema, unspecified Status: Acute (6) Pancreatic abnormality Status: Acute (7) DDD (degenerative disc disease), lumbosacral Status: Chronic - Allergies Allergies/Adverse Reactions: Allergies Allergy/AdvReac Type Severity Reaction Status Date / Time ketorolac [From Toradol] Allergy Verified 07/27/19 11:35 Penicillins Allergy Verified 07/27/19 11:35 Sulfa (Sulfonamide Allergy Verified 07/27/19 11:35 Antibiotics) [SULFA] BETA BLOCKERS Allergy Uncoded 07/27/19 11:35
[2019-08-19] MEDS: REGLAN INJ 10 MG VIAL IVP SCH ×2 (14:06→18:27)
[2019-08-19] MEDS: NS 1/2 + KCL 20 MEQ/L 1,000 ML IV SCH (14:07)
--- NOTE | 2019-08-19 17:40 | PCM.PROG ---
Progress Note - Progress Note for Day of Date of Exam: 08/19/19 - Subjective Subjective: PT IS 64 WF ER ADMISSION WITH INTRACTABLE ABDOMINAL PAIN AND NAUSEA. PT HAS BEEN NPO, GENTLE IV HYDRATION AND IV NARCOTIC PAIN CONTROL. KUB THIS AM REVEALED:Prominent gas. in stomach and a mid loop of small bowel. Findings may reflect a localized. ileus, that may be secondary to inflammatory process of the pancreas. However I cannot exclude a proximal small bowel obstruction. PT HAD CT ABD/PELVIS ORDERED THIS AM AND REFUSED PO CONTRAST, UNABLE TO IV DUE TO GFR. PT CREAT IMPROVING, 1.52 THIS AM. PT CO NAUSEA WITHOUT WITNESSED VOMITING PER NURSING STAFF. PT REFUSED NG TUBE PLACEMENT FOR TREATMENT OF SOB, INCTRACTABLE N/V. PT WAS ENCOURAGED TO COOPERATIVE WITH MEDICAL PLAN OF CARE. WI LL CONSULT WITH DR MCCARTNEY REGARDING POSSIBLE SBO. NG TUBE ORDERED FOR INTRACTABLE N/V. TODD CATH CARE, REPEAT AM LABS AND KUB - Past Medical Family Social History Past Med/Fam/Surg Hx: No changes since H&P Allergies: Allergies ketorolac [From Toradol] Allergy (Verified 07/27/19 11:35) Penicillins Allergy (Verified 07/27/19 11:35) Sulfa (Sulfonamide Antibiotics) [SULFA] Allergy (Verified 07/27/19 11:35) BETA BLOCKERS Allergy (Uncoded 07/27/19 11:35) - Review of Systems ROS: No change since H&P - Vital Signs and I&O's Vital Signs: Temperature 97 F Pulse Rate 104 Respiratory Rate 19 Blood Pressure [Left Arm] 135/70 Blood Pressure [Right Arm] 156/67 Blood Pressure 160/91 O2 Sat by Pulse Oximetry 94 Intake and Output: Intake & Output 08/17/19 08/18/19 08/19/19 08/20/19 11:59 11:59 11:59 11:59 Intake Total 2465 / 2465 1000 / 1000 Balance 2465 / 2465 1000 / 1000 - Physical Exam Oriented: Normal Eyes: Normal Ear: Normal Nose: Normal Throat: Dry Respiratory: Diminished, Wheezes Cardiovascular: Edema : Normal Auscultation: Bowel Sounds: Increased Tenderness: Diffuse Skin: Decreased Turgur Musculoskeletal: Leg, Back:Lumbar, Swelling Psychiatric: Anxiety Affect: Anxious Speech Pattern: Clear, Appropriate - Laboratory and Diagnostics Result Diagrams: 08/19/19 05:59 08/19/19 05:59 Labs: Laboratory WBC 7.0 X10^3/uL (3.6-10.0) 08/19/19 05:59 RBC 3.92 X10^6/uL (3.5-5.4) 08/19/19 05:59 Hgb 11.9 g/dL (12.0-16.0) L 08/19/19 05:59 Hct 36.0 % (36.0-47.0) 08/19/19 05:59 MCV 92.0 fL (80.0-100.0) 08/19/19 05:59 MCH 30.3 pg (27.0-34.0) 08/19/19 05:59 MCHC 32.9 g/dL (33.0-35.0) L 08/19/19 05:59 RDW 14.5 % (11.6-16.5) 08/19/19 05:59 Plt Count 317 X10^3/uL (150.0-450.0) 08/19/19 05:59 MPV 8.0 fL (7.4-11.0) 08/19/19 05:59 Neut % (Auto) 66.3 % (42.0-75.0) 08/19/19 05:59 Lymph % (Auto) 19.0 % (21.0-51.0) L 08/19/19 05:59 [place] % (Auto) 9.5 % (0.0-13.0) 08/19/19 05:59 Eos % (Auto) 4.0 % (0.9-2.9) H 08/19/19 05:59 Baso % (Auto) 1.2 % (0.2-1.0) H 08/19/19 05:59 Neut # (Auto) 4.6 x10^3/uL (2.2-4.8) 08/19/19 05:59 Lymph # (Auto) 1.3 X10^3/uL (1.3-2.9) 08/19/19 05:59 [place] # (Auto) 0.7 x10^3/uL (0.3-0.8) 08/19/19 05:59 Eos # (Auto) 0.3 x10^3/uL (0.0-0.2) H 08/19/19 05:59 Baso # (Auto) 0.1 X10^3/uL (0.0-0.1) 08/19/19 05:59 Absolute Nucleated RBC 0.1 /100WBC 08/19/19 05:59 Sodium 143 mmol/L (136-145) 08/19/19 05:59 Corrected Sodium 144 mmol/L (136-145) 08/19/19 05:59 Potassium 3.3 mmol/L (3.5-5.1) L 08/19/19 05:59 Chloride 100 mmol/L (98-107) 08/19/19 05:59 Carbon Dioxide 35.4 mmol/L (21-32) H 08/19/19 05:59 BUN 12 mg/dL (7-18) 08/19/19 05:59 Creatinine 1.52 mg/dL (0.55-1.02) H 08/19/19 05:59 Est GFR (MDRD) Af Amer 44 (>60) L 08/19/19 05:59 Est GFR (MDRD) Non-Af 36 (>60) L 08/19/19 05:59 Glucose 121 mg/dL (65-99) H 08/19/19 05:59 POC Glucose (mg/dL) 97 mg/dL (65-99) 08/19/19 16:28 Calcium 8.7 mg/dL (8.5-10.1) 08/19/19 05:59 Corrected Calcium 9.5 mg/dL (8.5-10.1) 08/19/19 05:59 Total Bilirubin 0.40 mg/dL (0.2-1.0) 08/19/19 05:59 AST 52 Units/L (15-37) H 08/19/19 05:59 ALT 28 Units/L (12-78) 08/19/19 05:59 Alkaline Phosphatase 147 Units/L (46-116) H 08/19/19 05:59 Total Protein 7.2 g/dL (6.4-8.2) 08/19/19 05:59 Albumin 3.0 g/dL (3.4-5.0) L 08/19/19 05:59 Globulin 4.2 g/dL (2.5-4.5) 08/19/19 05:59 Albumin/Globulin Ratio 0.7 Ratio (1.1-2.1) L 08/19/19 05:59 Amylase 37 Units/L (25-115) 08/19/19 05:59 Lipase 293 Units/L (73-393) 08/19/19 05:59 Stool Description 5g unformed brn 08/18/19 15:30 Stl Occult Blood (IFOB) Negative (NEGATIVE) 08/18/19 15:30 Stool for White Cells Negative (NEGATIVE) 08/18/19 15:30 - Plan (1) Abdominal pain Status: Acute Plan: NPO. GENTLE IV HYDRATION PAIN AND NAUSEA CONTROL. ABD/PELVIS CT ORDERED, REFUSED CONTRAST THIS AM. AM LABS, RESP CONSULT FOR DUO NEBS FOR COPD MANAGEMENT. VERIFY HOME MEDICATION, BP CONTROL. STRICT I& OS, DAILY WEIGHTS, STOOL STUDIES (2) SBO (small bowel obstruction) Status: Acute Plan: NPO, PAIN AND NAUSEA CONTROL. IV REGLAN, CT ABD PELVIS ORDERED, PT REFUSED. AM KUB. AM LABS (3) Nausea & vomiting Status: Acute Plan: NG TUBE LIS (4) CHF (congestive heart failure) Status: Acute Qualifiers: Heart failure type: systolic Heart failure chronicity: chronic Qualified Code(s): I50.22 - Chronic systolic (congestive) heart failure (5) CKD (chronic kidney disease) stage 3, GFR 30-59 ml/min Status: Acute (6) COPD (chronic obstructive pulmonary disease) Status: Acute Qualifiers: COPD type: emphysema Emphysema type: unspecified Qualified Code(s): J43.9 - Emphysema, unspecified (7) Pancreatic abnormality Status: Acute (8) DDD (degenerative disc disease), lumbosacral Status: Chronic
[2019-08-19 20:39] LABS: BILIRUBIN,URINE NEGATIVE (NEGATIVE); BLOOD/HEMOGLOBIN,URINE 3+ (NEGATIVE); GLUCOSE, URINE NEGATIVE (NEGATIVE); KETONES,URINE 1+ (NEGATIVE); LEUKOCYTE ESTERASE ,URINE 1+ (NEGATIVE); NITRITES,URINE NEGATIVE (NEGATIVE); PROTEIN,URINE 2+ (NEGATIVE); UROBILINOGEN,URINE NORMAL (NORMAL)
[2019-08-19 21:28] LABS: APPEARANCE,URINE CLEAR (CLEAR); BACTERIA,URINE NEGATIVE /HPF (NEGATIVE); COLOR,URINE YELLOW (YELLOW); SQUAMOUS EPITHELIAL CELL,UR RARE /HPF (NEGATIVE)
[2019-08-19] MEDS: LIPASE PROTEASE AMYLASE PO SCH (23:53)
[2019-08-19] MEDS: XANAX PO PRN (23:53)
[2019-08-20] MEDS: DUONEB 0.5 MG/3 MG (3 mL) NEB SCH ×6 (00:48→20:20)
[2019-08-20] MEDS: REGLAN INJ 10 MG VIAL IVP SCH ×2 (01:21→06:12)
[2019-08-20] MEDS: NS 1/2 + KCL 20 MEQ/L 1,000 ML IV SCH ×3 (01:54→16:15)
[2019-08-20] MEDS: ZOFRAN INJ 4 MG VIAL IVP PRN ×2 (05:42→22:50)
[2019-08-20] MEDS: LIPASE PROTEASE AMYLASE PO SCH ×3 (05:58→22:45)
[2019-08-20 06:09] LABS: BASOPHILS # (AUTO) 0.1 X10^3/uL (0.0-0.1); BASOPHILS % (AUTO) 1.5 % (0.2-1.0); EOSINOPHILS # (AUTO) 0.3 x10^3/uL (0.0-0.2); EOSINOPHILS % (AUTO) 5.1 % (0.9-2.9); HEMATOCRIT 33.6 % (36.0-47.0); LYMPHOCYTES # (AUTO) 1.3 X10^3/uL (1.3-2.9); LYMPHOCYTES % (AUTO) 21.6 % (21.0-51.0); MEAN CORPUSCULAR HEMOGLOBIN 30.5 pg (27.0-34.0); MEAN CORPUSCULAR HGB CONC 32.8 g/dL (33.0-35.0); MEAN CORPUSCULAR VOLUME 93.2 fL (80.0-100.0); MEAN PLATELET VOLUME 8.4 fL (7.4-11.0); MONOCYTES # (AUTO) 0.6 x10^3/uL (0.3-0.8); MONOCYTES % (AUTO) 10.4 % (0.0-13.0); NEUTROPHILS # (AUTO) 3.8 x10^3/uL (2.2-4.8); NEUTROPHILS % (AUTO) 61.4 % (42.0-75.0); PLATELET COUNT 299 X10^3/uL (150.0-450.0); RED BLOOD COUNT 3.61 X10^6/uL (3.5-5.4); RED CELL DISTRIBUTION WIDTH 14.3 % (11.6-16.5); WHITE BLOOD COUNT 6.2 X10^3/uL (3.6-10.0)
[2019-08-20 06:17] LABS: ALANINE AMINOTRANSFERASE 25 Units/L (12-78); ALBUMIN 2.9 g/dL (3.4-5.0); ALKALINE PHOSPHATASE 133 Units/L (46-116); ASPARTATE AMINO TRANSFERASE 42 Units/L (15-37); BLOOD UREA NITROGEN 7 mg/dL (7-18); CALCIUM 8.4 mg/dL (8.5-10.1); CARBON DIOXIDE 35.9 mmol/L (21-32); CHLORIDE 101 mmol/L (98-107); COR CA(FOR HYPOALB) 9.3 mg/dL (8.5-10.1); CREATININE 1.22 mg/dL (0.55-1.02); SODIUM 143 mmol/L (136-145); TOTAL PROTEIN 6.7 g/dL (6.4-8.2); eGFR NON BLACK RACES 47 (>60)
--- NOTE | 2019-08-20 07:19 | RAD ---
HISTORYSmall bowel obstruction versus [id number]/08/2020FINDINGSThere is some minimally dilated small bowel in the left uppe r quadrant with more normal small bowel distally. Findings could be consistent with a localized ileus or a partial small bowel obstruction. The degree of small-bowel distention is decreased. No abnormal masses or abnormal calcifications are identified.IMPRESSIONFindings consistent either with a localiz ed ileus or partial small bowel obstructionElectronically signed by: ROSAURA MATIAS (Aug 20, 2019 07:1 8:22)
[2019-08-20] MEDS: FLONASE NASAL SPRAY ENOSTRIL SCH (08:25)
[2019-08-20] MEDS: SYNTHROID 25 mcg TAB PO SCH (08:25)
[2019-08-20] MEDS: ZITHROMAX INJ 500 MG VIAL 500 MG in NS 250 ML IV 250 ML IV SCH (08:25)
[2019-08-20] MEDS: CARDIZEM CD 120 MG 24-HR PO SCH (08:25)
[2019-08-20] MEDS: PROTONIX INJ 40 MG VIAL IVP SCH (08:25)
[2019-08-20] MEDS: PHENERGAN INJ 25 MG IM PRN ×3 (08:28→20:03)
[2019-08-20] MEDS: XANAX PO PRN ×2 (09:30→19:00)
[2019-08-20] MEDS: MORPHINE SULFATE INJ 2 MG INJ IVP PRN ×2 (15:52→21:00)
[2019-08-20] MEDS ORDERED: PATIENT'S HOME MEDICATION (Oxycodone-Acetaminophen [Percocet] 1 TAB) PO PRN (17:47)
[2019-08-20] MEDS ORDERED: TYLENOL 325 MG TAB PO PRN (17:51)
[2019-08-20 18:09] LABS: ABG BASE EXCESS 10.5 mmol/L (-2.0-2.0)
[2019-08-20 18:10] LABS: ABG HCO3 35.7 mmol/L (22-26)
[2019-08-20] MEDS: ROXICODONE TAB 5 MG PO PRN (18:11)
[2019-08-21] MEDS: NS 1/2 + KCL 20 MEQ/L 1,000 ML IV SCH ×3 (00:05→19:34)
[2019-08-21] MEDS: DUONEB 0.5 MG/3 MG (3 mL) NEB SCH ×7 (00:40→19:59)
[2019-08-21] MEDS: PHENERGAN INJ 25 MG IM PRN ×3 (01:46→21:20)
[2019-08-21] MEDS: MORPHINE SULFATE INJ 2 MG INJ IVP PRN ×3 (04:10→21:58)
[2019-08-21] MEDS: LIPASE PROTEASE AMYLASE PO SCH ×3 (05:42→22:00)
[2019-08-21] MEDS: ROXICODONE TAB 5 MG PO PRN ×2 (06:12→13:55)
--- NOTE | 2019-08-21 06:14 | RAD ---
HISTORYShortness of breathSTUDYCHEST, 1 [id number]/16/2019FINDINGSThere is a right-sided port present. The heart is within normal limits in size. The diane are normal. The lung clifton are clear. Bony thorax is unremarkable.IMPRESSIONLungs clearElectronically signed by: ROSAURA MATIAS (Aug 21, 2019 06:12:23)
[2019-08-21] MEDS: XANAX PO PRN (06:24)
[2019-08-21 06:28] LABS: BASOPHILS # (AUTO) 0.1 X10^3/uL (0.0-0.1); EOSINOPHILS # (AUTO) 0.4 x10^3/uL (0.0-0.2); HEMATOCRIT 35.5 % (36.0-47.0); HEMOGLOBIN 11.6 g/dL (12.0-16.0); LYMPHOCYTES # (AUTO) 1.6 X10^3/uL (1.3-2.9); LYMPHOCYTES % (AUTO) 17.5 % (21.0-51.0); MEAN CORPUSCULAR HEMOGLOBIN 30.6 pg (27.0-34.0); MEAN CORPUSCULAR HGB CONC 32.6 g/dL (33.0-35.0); MEAN CORPUSCULAR VOLUME 93.9 fL (80.0-100.0); MONOCYTES # (AUTO) 0.9 x10^3/uL (0.3-0.8); MONOCYTES % (AUTO) 10.2 % (0.0-13.0); NEUTROPHILS # (AUTO) 6.1 x10^3/uL (2.2-4.8); NEUTROPHILS % (AUTO) 67.3 % (42.0-75.0); PLATELET COUNT 324 X10^3/uL (150.0-450.0); RED BLOOD COUNT 3.78 X10^6/uL (3.5-5.4); RED CELL DISTRIBUTION WIDTH 14.5 % (11.6-16.5)
[2019-08-21 06:53] LABS: ALANINE AMINOTRANSFERASE 29 Units/L (12-78); ALKALINE PHOSPHATASE 133 Units/L (46-116); ASPARTATE AMINO TRANSFERASE 61 Units/L (15-37); BLOOD UREA NITROGEN 6 mg/dL (7-18); CALCIUM 8.6 mg/dL (8.5-10.1); CARBON DIOXIDE 30.8 mmol/L (21-32); CHLORIDE 100 mmol/L (98-107); COR CA(FOR HYPOALB) 9.4 mg/dL (8.5-10.1); CREATININE 1.21 mg/dL (0.55-1.02); SODIUM 141 mmol/L (136-145); TOTAL PROTEIN 7.1 g/dL (6.4-8.2); eGFR NON BLACK RACES 47 (>60)
[2019-08-21 09:04] LABS: CKMB % 0.9 % (<4); TROPONIN I 0.9 ng/mL (0-1.5)
[2019-08-21] MEDS: PROTONIX INJ 40 MG VIAL IVP SCH (09:49)
[2019-08-21] MEDS: LASIX IVP SCH ×2 (09:50→21:57)
[2019-08-21] MEDS: SYNTHROID 25 mcg TAB PO SCH (10:09)
[2019-08-21] MEDS: ZITHROMAX INJ 500 MG VIAL 500 MG in NS 250 ML IV 250 ML IV SCH (10:09)
[2019-08-21] MEDS: CARDIZEM CD 120 MG 24-HR PO SCH (10:09)
[2019-08-21] MEDS: FLONASE NASAL SPRAY ENOSTRIL SCH (10:10)
[2019-08-21 13:43] LABS: CKMB % 1.2 % (<4); CREATINE KINASE MB 2.2 ng/mL (0-4.0); TROPONIN I 0.95 ng/mL (0-1.5)
--- NOTE | 2019-08-21 15:13 | RAD ---
HISTORYSmall-bowel obstruction failed outpatient treatmentSTUDYKUBSHRINERS HOSPITALS FOR CHILDRENJanuary and August 19 abdominal filmFINDINGSThere are persistent dilated elongated small-bowel loop in the mid abdomen maximal diameter on film 4.9 cm. This is unchanged from recent films of and 20 August. There is a small amount of air in the colon but it is minimal. There is no free air. There is air in the stomach. This disproportionate small bowel distension to air in the colon is consistent with small-bowel obstruction again there is no significant change in the caliber are number of bowel loops. Incidental note is made of of clips from cholecystectomy in the right upper quadrant.IMPRESSIONPersistent elongated distended small bowel loops disproportionate with the amount of air in the colon consistent with small bowel obstruction.Electronically signed by: MARCIAL KAPLAN (Aug 21, 2019 15:12:15)
--- NOTE | 2019-08-21 15:59 | DR.PROGNOT ---
Hospital Progress Notes - Progress Note for Day of: Progress Note Date: 08/21/19 - Chief Complaint Chief Complaint: still c/o abdominal pain and bloating .no vomiting today ( Pt refused NGT ). having SOB and on O2 mask . - Past Medical Family Social History Past Med/Fam/Surg Hx: No changes since H&P Allergies: Allergies ketorolac [From Toradol] Allergy (Verified 07/27/19 11:35) Penicillins Allergy (Verified 07/27/19 11:35) Sulfa (Sulfonamide Antibiotics) [SULFA] Allergy (Verified 07/27/19 11:35) BETA BLOCKERS Allergy (Uncoded 07/27/19 11:35) - Review Of Systems ROS: No change since H&P - Vital Signs Vital Signs: Temperature 98.1 F Pulse Rate 96 Respiratory Rate 23 Blood Pressure [Left Arm] 135/70 Blood Pressure [Right Arm] 156/67 Blood Pressure 108/65 O2 Sat by Pulse Oximetry 100 - Physical Exam Oriented: Normal Eyes: Normal Ear: Normal Nose: Normal Throat: Dry Respiratory: Diminished, Wheezes Cardiovascular: Edema : Normal GI:Auscultation: Increased GI: Tenderness: Diffuse (distended tympanic abdomen with more tenderness Lt side . no rebound .) Skin: Decreased Turgur Musculoskeletal: Leg, Back:Lumbar, Swelling Psychiatric: Anxiety Affect: Anxious Speech Pattern: Clear, Appropriate - Laboratory and Diagnostics Result Diagrams: 08/21/19 05:48 08/21/19 05:48 Labs: 08/20/19 14:28 Stool Stool Culture - Preliminary 08/20/19 14:28 Stool - Final Laboratory WBC 9.0 X10^3/uL (3.6-10.0) 08/21/19 05:48 RBC 3.78 X10^6/uL (3.5-5.4) 08/21/19 05:48 Hgb 11.6 g/dL (12.0-16.0) L 08/21/19 05:48 Hct 35.5 % (36.0-47.0) L 08/21/19 05:48 MCV 93.9 fL (80.0-100.0) 08/21/19 05:48 MCH 30.6 pg (27.0-34.0) 08/21/19 05:48 MCHC 32.6 g/dL (33.0-35.0) L 08/21/19 05:48 RDW 14.5 % (11.6-16.5) 08/21/19 05:48 Plt Count 324 X10^3/uL (150.0-450.0) 08/21/19 05:48 MPV 9.0 fL (7.4-11.0) 08/21/19 05:48 Neut % (Auto) 67.3 % (42.0-75.0) 08/21/19 05:48 Lymph % (Auto) 17.5 % (21.0-51.0) L 08/21/19 05:48 [place] % (Auto) 10.2 % (0.0-13.0) 08/21/19 05:48 Eos % (Auto) 4.0 % (0.9-2.9) H 08/21/19 05:48 Baso % (Auto) 1.0 % (0.2-1.0) 08/21/19 05:48 Neut # (Auto) 6.1 x10^3/uL (2.2-4.8) H 08/21/19 05:48 Lymph # (Auto) 1.6 X10^3/uL (1.3-2.9) 08/21/19 05:48 [place] # (Auto) 0.9 x10^3/uL (0.3-0.8) H 08/21/19 05:48 Eos # (Auto) 0.4 x10^3/uL (0.0-0.2) H 08/21/19 05:48 Baso # (Auto) 0.1 X10^3/uL (0.0-0.1) 08/21/19 05:48 Absolute Nucleated RBC 0.1 /100WBC 08/21/19 05:48 Sample Site Lb 08/20/19 18:02 ABG pH 7.470 (7.35-7.45) H 08/20/19 18:02 ABG pCO2 49.0 mmHg (35.0-45.0) H 08/20/19 18:02 ABG pO2 70.0 mmHg (80.0-100.0) L 08/20/19 18:02 ABG HCO3 35.7 mmol/L (22-26) H* 08/20/19 18:02 ABG O2 Saturation 95.0 % (90-100) 08/20/19 18:02 ABG Base Excess 10.5 mmol/L (-2.0-2.0) H 08/20/19 18:02 Sameer Test Na 08/20/19 18:02 A-a Gradient 97.0 mmHg 08/20/19 18:02 FiO2 32.0 08/20/19 18:02 Blood Gas Comments Pt baltazar well. cdn 08/20/19 18:02 Sodium 141 mmol/L (136-145) 08/21/19 05:48 Corrected Sodium TNP 08/21/19 05:48 Potassium 3.5 mmol/L (3.5-5.1) 08/21/19 05:48 Chloride 100 mmol/L (98-107) 08/21/19 05:48 Carbon Dioxide 30.8 mmol/L (21-32) 08/21/19 05:48 BUN 6 mg/dL (7-18) L 08/21/19 05:48 Creatinine 1.21 mg/dL (0.55-1.02) H 08/21/19 05:48 Est GFR (MDRD) Af Amer 57 (>60) L 08/21/19 05:48 Est GFR (MDRD) Non-Af 47 (>60) L 08/21/19 05:48 Glucose 90 mg/dL (65-99) 08/21/19 05:48 POC Glucose (mg/dL) 87 mg/dL (65-99) 08/21/19 11:22 Calcium 8.6 mg/dL (8.5-10.1) 08/21/19 05:48 Corrected Calcium 9.4 mg/dL (8.5-10.1) 08/21/19 05:48 Total Bilirubin 0.80 mg/dL (0.2-1.0) 08/21/19 05:48 AST 61 Units/L (15-37) H 08/21/19 05:48 ALT 29 Units/L (12-78) 08/21/19 05:48 Alkaline Phosphatase 133 Units/L (46-116) H 08/21/19 05:48 Creatine Kinase 189 Units/L (26-192) 08/21/19 12:50 CK-MB (CK-2) 2.2 ng/mL (0-4.0) 08/21/19 12:50 CK/CKMB % Calc 1.2 % (<4) 08/21/19 12:50 Troponin I 0.95 ng/mL (0-1.5) 08/21/19 12:50 Total Protein 7.1 g/dL (6.4-8.2) 08/21/19 05:48 Albumin 3.0 g/dL (3.4-5.0) L 08/21/19 05:48 Globulin 4.1 g/dL (2.5-4.5) 08/21/19 05:48 Albumin/Globulin Ratio 0.7 Ratio (1.1-2.1) L 08/21/19 05:48 Amylase 37 Units/L (25-115) 08/19/19 05:59 Lipase 293 Units/L (73-393) 08/19/19 05:59 Specimen Type Catherized urine 08/19/19 20:00 Urine Color Yellow (YELLOW) 08/19/19 20:00 Urine Appearance Clear (CLEAR) 08/19/19 20:00 Urine pH 7.0 (5.0 - 8.0) 08/19/19 20:00 Ur Specific [place] 1.010 (1.000-1.030) 08/19/19 20:00 Urine Protein 2+ (NEGATIVE) 08/19/19 20:00 Urine Glucose (UA) Negative (NEGATIVE) 08/19/19 20:00 Urine Ketones 1+ (NEGATIVE) 08/19/19 20:00 Urine Occult Blood 3+ (NEGATIVE) 08/19/19 20:00 Urine Nitrite Negative (NEGATIVE) 08/19/19 20: Urine Bilirubin Negative (NEGATIVE) 08/19/19 20:00 Urine Urobilinogen Normal (NORMAL) 08/19/19 20:00 Ur Leukocyte Esterase 1+ (NEGATIVE) 08/19/19 20:00 Urine RBC 3-5 /HPF (0-3) A 08/19/19 20: Urine WBC 0-2 /HPF (0-5) 08/19/19 20:00 Ur Squamous Epith Cells Rare /HPF (NEGATIVE) 08/19/19 20:00 Urine Bacteria Negative /HPF (NEGATIVE) 08/19/19 20:00 Ur Culture Indicated? No/not indicated 08/19/19 20:00 Stool Description 5g,yellow/brown, 08/20/19 14:28 Stl Occult Blood (IFOB) Negative (NEGATIVE) 08/20/19 14:28 Stool for White Cells Negative (NEGATIVE) 08/20/19 14:28 Stl C. diff Tox B Gene Negative (NEGATIVE) 08/20/19 14:28 Stl C. diff [id number] Negative (NEGATIVE) 08/20/19 14:28 Stool H. pylori Ag Negative (NEGATIVE) 08/20/19 14:28 - Assessment and Plan 1: recurrent partial SBO . abdominal adhesions and multiple abdominal surgeries . COPD ,. morbid obesity with limited ambulation . will d/w Pt the need for NGT to avoid very high risk surgery .. keep NPO for now , repeat KUB in am . - Problem Patient Problems: Patient Problems Nausea & vomiting (Acute) R11.2 SBO (small bowel obstruction) (Acute) [id number]
[2019-08-22] MEDS: XANAX PO PRN (00:15)
[2019-08-22] MEDS: ROXICODONE TAB 5 MG PO PRN ×4 (00:15→18:30)
[2019-08-22] MEDS: DUONEB 0.5 MG/3 MG (3 mL) NEB SCH ×8 (00:40→20:07)
[2019-08-22] MEDS: NS 1/2 + KCL 20 MEQ/L 1,000 ML IV SCH ×2 (06:19→20:00)
[2019-08-22] MEDS: LIPASE PROTEASE AMYLASE PO SCH ×3 (06:48→21:45)
[2019-08-22] MEDS: MORPHINE SULFATE INJ 2 MG INJ IVP PRN ×2 (06:52→18:31)
[2019-08-22 07:32] LABS: ALANINE AMINOTRANSFERASE 29 Units/L (12-78); ALBUMIN 2.8 g/dL (3.4-5.0); ALKALINE PHOSPHATASE 128 Units/L (46-116); ASPARTATE AMINO TRANSFERASE 59 Units/L (15-37); BLOOD UREA NITROGEN 9 mg/dL (7-18); CARBON DIOXIDE 31.2 mmol/L (21-32); CHLORIDE 99 mmol/L (98-107); CKMB % 1.2 % (<4); CREATINE KINASE 118 Units/L (26-192); CREATINE KINASE MB 1.4 ng/mL (0-4.0); CREATININE 1.24 mg/dL (0.55-1.02); SODIUM 139 mmol/L (136-145); TOTAL PROTEIN 6.7 g/dL (6.4-8.2); TROPONIN I 0.29 ng/mL (0-1.5); eGFR NON BLACK RACES 46 (>60)
[2019-08-22] MEDS: CARDIZEM CD 120 MG 24-HR PO SCH (08:29)
[2019-08-22] MEDS: SYNTHROID 25 mcg TAB PO SCH (08:30)
[2019-08-22] MEDS: ZITHROMAX INJ 500 MG VIAL 500 MG in NS 250 ML IV 250 ML IV SCH (08:30)
[2019-08-22] MEDS: FLONASE NASAL SPRAY ENOSTRIL SCH (08:30)
[2019-08-22] MEDS: PROTONIX INJ 40 MG VIAL IVP SCH (08:30)
[2019-08-22 10:11] LABS: RED CELL DISTRIBUTION WIDTH 14.5 % (11.6-16.5)
--- NOTE | 2019-08-22 10:38 | DR.PROGNOT ---
Hospital Progress Notes - Progress Note for Day of: Progress Note Date: 08/22/19 - Chief Complaint Chief Complaint: still having abdominal pain but had small BM last night . moderate SOB ( on O2 mask ) . very anxious this morning . - Past Medical Family Social History Past Med/Fam/Surg Hx: No changes since H&P Allergies: Allergies ketorolac [From Toradol] Allergy (Verified 07/27/19 11:35) Penicillins Allergy (Verified 07/27/19 11:35) Sulfa (Sulfonamide Antibiotics) [SULFA] Allergy (Verified 07/27/19 11:35) BETA BLOCKERS Allergy (Uncoded 07/27/19 11:35) - Review Of Systems ROS: No change since H&P - Vital Signs Vital Signs: Temperature 98.2 F Pulse Rate 100 Respiratory Rate 20 Blood Pressure [Left Arm] 135/70 Blood Pressure [Right Arm] 156/67 Blood Pressure 121/56 O2 Sat by Pulse Oximetry 100 - Physical Exam Oriented: Normal Eyes: Normal Ear: Normal Nose: Normal Throat: Dry Respiratory: Diminished, Wheezes Cardiovascular: Edema : Normal GI:Palpation: Other (DISTENTION) GI: Tenderness: Diffuse (distended tympanic abdomen with more tenderness Lt side . no rebound .BS +) Skin: Decreased Turgur Musculoskeletal: Leg, Back:Lumbar, Swelling Psychiatric: Anxiety Affect: Anxious Speech Pattern: Clear, Appropriate - Laboratory and Diagnostics Result Diagrams: 08/21/19 05:48 08/22/19 06:45 Labs: 08/20/19 14:28 Stool Stool Culture - Final 08/20/19 14:28 Stool - Final Laboratory WBC 9.0 X10^3/uL (3.6-10.0) 08/21/19 05:48 RBC 3.78 X10^6/uL (3.5-5.4) 08/21/19 05:48 Hgb 11.6 g/dL (12.0-16.0) L 08/21/19 05:48 Hct 35.5 % (36.0-47.0) L 08/21/19 05:48 MCV 93.9 fL (80.0-100.0) 08/21/19 05:48 MCH 30.6 pg (27.0-34.0) 08/21/19 05:48 MCHC 32.6 g/dL (33.0-35.0) L 08/21/19 05:48 RDW 14.5 % (11.6-16.5) 08/21/19 05:48 Plt Count 324 X10^3/uL (150.0-450.0) 08/21/19 05:48 MPV 9.0 fL (7.4-11.0) 08/21/19 05:48 Neut % (Auto) 67.3 % (42.0-75.0) 08/21/19 05:48 Lymph % (Auto) 17.5 % (21.0-51.0) L 08/21/19 05:48 [place] % (Auto) 10.2 % (0.0-13.0) 08/21/19 05:48 Eos % (Auto) 4.0 % (0.9-2.9) H 08/21/19 05:48 Baso % (Auto) 1.0 % (0.2-1.0) 08/21/19 05:48 Neut # (Auto) 6.1 x10^3/uL (2.2-4.8) H 08/21/19 05:48 Lymph # (Auto) 1.6 X10^3/uL (1.3-2.9) 08/21/19 05:48 [place] # (Auto) 0.9 x10^3/uL (0.3-0.8) H 08/21/19 05:48 Eos # (Auto) 0.4 x10^3/uL (0.0-0.2) H 08/21/19 05:48 Baso # (Auto) 0.1 X10^3/uL (0.0-0.1) 08/21/19 05:48 Absolute Nucleated RBC 0.1 /100WBC 08/21/19 05:48 Sample Site Lb 08/20/19 18:02 ABG pH 7.470 (7.35-7.45) H 08/20/19 18:02 ABG pCO2 49.0 mmHg (35.0-45.0) H 08/20/19 18:02 ABG pO2 70.0 mmHg (80.0-100.0) L 08/20/19 18:02 ABG HCO3 35.7 mmol/L (22-26) H* 08/20/19 18:02 ABG O2 Saturation 95.0 % (90-100) 08/20/19 18:02 ABG Base Excess 10.5 mmol/L (-2.0-2.0) H 08/20/19 18:02 Sameer Test Na 08/20/19 18:02 A-a Gradient 97.0 mmHg 08/20/19 18:02 FiO2 32.0 08/20/19 18:02 Blood Gas Comments Pt baltazar well. cdn 08/20/19 18:02 Sodium 139 mmol/L (136-145) 08/22/19 06:45 Corrected Sodium TNP 08/22/19 06:45 Potassium 4.0 mmol/L (3.5-5.1) 08/22/19 06:45 Chloride 99 mmol/L (98-107) 08/22/19 06:45 Carbon Dioxide 31.2 mmol/L (21-32) 08/22/19 06:45 BUN 9 mg/dL (7-18) 08/22/19 06:45 Creatinine 1.24 mg/dL (0.55-1.02) H 08/22/19 06:45 Est GFR (MDRD) Af Amer 56 (>60) L 08/22/19 06:45 Est GFR (MDRD) Non-Af 46 (>60) L 08/22/19 06:45 Glucose 85 mg/dL (65-99) 08/22/19 06:45 POC Glucose (mg/dL) 77 mg/dL (65-99) 08/22/19 06:33 Calcium 8.0 mg/dL (8.5-10.1) L 08/22/19 06:45 Corrected Calcium 9.0 mg/dL (8.5-10.1) 08/22/19 06:45 Total Bilirubin 0.70 mg/dL (0.2-1.0) 08/22/19 06:45 AST 59 Units/L (15-37) H 08/22/19 06:45 ALT 29 Units/L (12-78) 08/22/19 06:45 Alkaline Phosphatase 128 Units/L (46-116) H 08/22/19 06:45 Creatine Kinase 118 Units/L (26-192) 08/22/19 06:45 CK-MB (CK-2) 1.4 ng/mL (0-4.0) 08/22/19 06:45 CK/CKMB % Calc 1.2 % (<4) 08/22/19 06:45 Troponin I 0.29 ng/mL (0-1.5) 08/22/19 06:45 Total Protein 6.7 g/dL (6.4-8.2) 08/22/19 06:45 Albumin 2.8 g/dL (3.4-5.0) L 08/22/19 06:45 Globulin 3.9 g/dL (2.5-4.5) 08/22/19 06:45 Albumin/Globulin Ratio 0.7 Ratio (1.1-2.1) L 08/22/19 06:45 Amylase 37 Units/L (25-115) 08/19/19 05:59 Lipase 293 Units/L (73-393) 08/19/19 05:59 Specimen Type Catherized urine 08/19/19 20:00 Urine Color Yellow (YELLOW) 08/19/19 20:00 Urine Appearance Clear (CLEAR) 08/19/19 20:00 Urine pH 7.0 (5.0 - 8.0) 08/19/19 20:00 Ur Specific [place] 1.010 (1.000-1.030) 08/19/19 20:00 Urine Protein 2+ (NEGATIVE) 08/19/19 20:00 Urine Glucose (UA) Negative (NEGATIVE) 08/19/19 20:00 Urine Ketones 1+ (NEGATIVE) 08/19/19 20:00 Urine Occult Blood 3+ (NEGATIVE) 08/19/19 20:00 Urine Nitrite Negative (NEGATIVE) 08/19/19 20: Urine Bilirubin Negative (NEGATIVE) 08/19/19 20:00 Urine Urobilinogen Normal (NORMAL) 08/19/19 20:00 Ur Leukocyte Esterase 1+ (NEGATIVE) 08/19/19 20:00 Urine RBC 3-5 /HPF (0-3) A 08/19/19 20: Urine WBC 0-2 /HPF (0-5) 08/19/19 20:00 Ur Squamous Epith Cells Rare /HPF (NEGATIVE) 08/19/19 20:00 Urine Bacteria Negative /HPF (NEGATIVE) 08/19/19 20:00 Ur Culture Indicated? No/not indicated 08/19/19 20:00 Stool Description 5g,yellow/brown, 08/20/19 14:28 Stl Occult Blood (IFOB) Negative (NEGATIVE) 08/20/19 14:28 Stool for White Cells Negative (NEGATIVE) 08/20/19 14:28 Stl C. diff Tox B Gene Negative (NEGATIVE) 08/20/19 14:28 Stl C. diff [id number] Negative (NEGATIVE) 08/20/19 14:28 Stool H. pylori Ag Negative (NEGATIVE) 08/20/19 14:28 - Assessment and Plan 1: recurrent partial SBO . abdominal adhesions 2nd abdominal surgeries . COPD ,. morbid obesity with limited ambulation . to start clear liquid and repeat abdominal xray. - Problem Patient Problems: Patient Problems Nausea & vomiting (Acute) R11.2 SBO (small bowel obstruction) (Acute) K56.606
[2019-08-22 10:46] LABS: BASOPHILS # (AUTO) 0.1 X10^3/uL (0.0-0.1); BASOPHILS % (AUTO) 1.1 % (0.2-1.0); EOSINOPHILS # (AUTO) 0.7 x10^3/uL (0.0-0.2); EOSINOPHILS % (AUTO) 8.1 % (0.9-2.9); HEMATOCRIT 34.8 % (36.0-47.0); HEMOGLOBIN 11.4 g/dL (12.0-16.0); LYMPHOCYTES # (AUTO) 1.9 X10^3/uL (1.3-2.9); LYMPHOCYTES % (AUTO) 21.3 % (21.0-51.0); MEAN CORPUSCULAR HEMOGLOBIN 30.3 pg (27.0-34.0); MEAN CORPUSCULAR HGB CONC 32.8 g/dL (33.0-35.0); MEAN CORPUSCULAR VOLUME 92.3 fL (80.0-100.0); MEAN PLATELET VOLUME 9.1 fL (7.4-11.0); MONOCYTES # (AUTO) 1.2 x10^3/uL (0.3-0.8); MONOCYTES % (AUTO) 13.5 % (0.0-13.0); PLATELET COUNT 223 X10^3/uL (150.0-450.0); RED BLOOD COUNT 3.77 X10^6/uL (3.5-5.4); WHITE BLOOD COUNT 8.9 X10^3/uL (3.6-10.0)
[2019-08-22 11:12] LABS: PLATELET MORPHOLOGY COMMENT NORMAL (NORMAL)
--- NOTE | 2019-08-22 12:03 | RAD ---
HISTORYNoneSTUDYAP [id number] is enlarged, accentuated by nonstandard technical factors. There is distention of upper lobe pulmonary vessels which again may be related to supine or semi upright position. The lungs are grossly clear otherwise. Stable position of right subclavian injection port.IMPRESSIONCardiomegaly with mild pulmonary vascular congestion, possibly positional in origin.Electronically signed by: JESUS LOWRY (Aug 22, 2019 12:02:09)
[2019-08-22] MEDS: PHENERGAN INJ 25 MG IM PRN (13:25)
[2019-08-22] MEDS: XANAX PO SCH ×2 (13:29→21:45)
[2019-08-22 19:02] LABS: ABG BASE EXCESS 6.7 mmol/L (-2.0-2.0)
[2019-08-22 19:03] LABS: ABG ALLEN TEST POS; ABG HCO3 31.9 mmol/L (22-26)
[2019-08-23] MEDS: DUONEB 0.5 MG/3 MG (3 mL) NEB SCH ×6 (00:33→21:25)
[2019-08-23] MEDS: MORPHINE SULFATE INJ 2 MG INJ IVP PRN ×4 (00:34→19:29)
[2019-08-23] MEDS: ROXICODONE TAB 5 MG PO PRN ×2 (02:34→10:51)
[2019-08-23] MEDS: PHENERGAN INJ 25 MG IM PRN ×3 (05:27→22:51)
[2019-08-23] MEDS: XANAX PO SCH ×3 (05:28→22:31)
[2019-08-23] MEDS: LIPASE PROTEASE AMYLASE PO SCH ×3 (06:04→21:54)
[2019-08-23] MEDS: ZOFRAN INJ 4 MG VIAL IVP PRN ×2 (07:55→15:45)
[2019-08-23] MEDS: ZITHROMAX INJ 500 MG VIAL 500 MG in NS 250 ML IV 250 ML IV SCH (08:17)
[2019-08-23] MEDS: CARDIZEM CD 120 MG 24-HR PO SCH (08:17)
[2019-08-23] MEDS: PROTONIX INJ 40 MG VIAL IVP SCH (08:17)
[2019-08-23] MEDS: SYNTHROID 25 mcg TAB PO SCH (08:17)
[2019-08-23] MEDS: FLONASE NASAL SPRAY ENOSTRIL SCH (09:02)
[2019-08-23] MEDS ORDERED: LASIX IVP ONE (10:44)
[2019-08-23] MEDS: LASIX IVP SCH ×2 (11:10→21:12)
[2019-08-23] MEDS: DIFLUCAN 200 MG IV PREMIX* 200 MG/100 ML BAG IV SCH (12:45)
[2019-08-23] MEDS: NS 1/2 + KCL 20 MEQ/L 1,000 ML IV SCH ×2 (13:29→21:52)
--- NOTE | 2019-08-23 15:58 | RAD ---
HISTORYAbdominal pain.STUDYKUBCOMPARISONKUB examination dated August 20 and August 21.FINDINGSThe degree of small and large bowel dilatation/distension seen on the previous exam is roughly unchanged. These findings would be most compatible with an abdominal ileus versus is a partial small-bowel obstruction. RUQ clips are seen in place. No gross free peritoneal air bowel wall pneumatosis seen. No other changes are observed. The bones are grossly unchanged as well.IMPRESSIONUnchanged abdominal bowel gas pattern, suggesting a partial small-bowel obstruction or abdominal ileus.Electronically signed by: MAURY KAN III (Aug 23, 2019 15:56:36)
[2019-08-23 15:59] LABS: BILIRUBIN,URINE NEGATIVE (NEGATIVE); BLOOD/HEMOGLOBIN,URINE NEGATIVE (NEGATIVE); GLUCOSE, URINE NEGATIVE (NEGATIVE); KETONES,URINE NEGATIVE (NEGATIVE); LEUKOCYTE ESTERASE ,URINE NEGATIVE (NEGATIVE); NITRITES,URINE NEGATIVE (NEGATIVE); PROTEIN,URINE NEGATIVE (NEGATIVE); UROBILINOGEN,URINE NORMAL (NORMAL)
[2019-08-23 16:02] LABS: APPEARANCE,URINE CLEAR (CLEAR); COLOR,URINE YELLOW (YELLOW)
[2019-08-24] MEDS: DUONEB 0.5 MG/3 MG (3 mL) NEB SCH ×6 (01:15→21:25)
[2019-08-24] MEDS: NS 1/2 + KCL 20 MEQ/L 1,000 ML IV SCH (04:17)
[2019-08-24] MEDS: MORPHINE SULFATE INJ 2 MG INJ IVP PRN (04:18)
[2019-08-24] MEDS: ZOFRAN INJ 4 MG VIAL IVP PRN (04:19)
[2019-08-24 05:15] LABS: BASOPHILS % (AUTO) 0.2 % (0.2-1.0); EOSINOPHILS # (AUTO) 0.6 x10^3/uL (0.0-0.2); HEMATOCRIT 33.8 % (36.0-47.0); LYMPHOCYTES # (AUTO) 1.4 X10^3/uL (1.3-2.9); LYMPHOCYTES % (AUTO) 22.3 % (21.0-51.0); MEAN CORPUSCULAR HEMOGLOBIN 30.1 pg (27.0-34.0); MEAN CORPUSCULAR HGB CONC 32.7 g/dL (33.0-35.0); MEAN CORPUSCULAR VOLUME 92.2 fL (80.0-100.0); MONOCYTES # (AUTO) 0.9 x10^3/uL (0.3-0.8); MONOCYTES % (AUTO) 14.2 % (0.0-13.0); NEUTROPHILS # (AUTO) 3.4 x10^3/uL (2.2-4.8); NEUTROPHILS % (AUTO) 53.3 % (42.0-75.0); PLATELET COUNT 286 X10^3/uL (150.0-450.0); RED BLOOD COUNT 3.66 X10^6/uL (3.5-5.4); RED CELL DISTRIBUTION WIDTH 14.8 % (11.6-16.5); WHITE BLOOD COUNT 6.4 X10^3/uL (3.6-10.0)
[2019-08-24 05:27] LABS: ALANINE AMINOTRANSFERASE 21 Units/L (12-78); ALBUMIN 2.7 g/dL (3.4-5.0); ALKALINE PHOSPHATASE 125 Units/L (46-116); ASPARTATE AMINO TRANSFERASE 39 Units/L (15-37); BLOOD UREA NITROGEN 6 mg/dL (7-18); CALCIUM 8.6 mg/dL (8.5-10.1); CARBON DIOXIDE 32.5 mmol/L (21-32); CHLORIDE 98 mmol/L (98-107); COR CA(FOR HYPOALB) 9.6 mg/dL (8.5-10.1); CREATININE 1.23 mg/dL (0.55-1.02); SODIUM 140 mmol/L (136-145); TOTAL PROTEIN 6.9 g/dL (6.4-8.2); eGFR NON BLACK RACES 46 (>60)
[2019-08-24] MEDS: XANAX PO SCH ×3 (06:17→21:22)
[2019-08-24] MEDS: LIPASE PROTEASE AMYLASE PO SCH ×3 (06:17→21:22)
[2019-08-24] MEDS: PHENERGAN INJ 25 MG IM PRN ×2 (06:29→15:02)
[2019-08-24] MEDS ORDERED: POTASSIUM CHL 40 MEQ/NS 0.45% 500 ML IV PRN (06:36)
[2019-08-24] MEDS ORDERED: KLOR-CON PO PRN (06:36)
[2019-08-24] MEDS ORDERED: MAGNESIUM SULFATE 1 GRAM/100 mL PREMIX 1 GM/100 ML BAG IV PRN (06:36)
[2019-08-24] MEDS ORDERED: K-DUR TAB 20 MEQ PO PRN (06:36)
[2019-08-24] MEDS ORDERED: POTASSIUM CHL 60 MEQ/NS 0.45% 500 ML IV PRN (06:36)
[2019-08-24] MEDS ORDERED: K-RIDER 10 MEQ/NS 100 ML 10 MEQ/100 ML BAG IV PRN (06:36)
[2019-08-24] MEDS ORDERED: MICRO K EXTEN CAP 10 MEQ PO PRN (06:36)
[2019-08-24] MEDS ORDERED: POTASSIUM CHLORIDE LIQ 20 MEQ UDC PO PRN (06:36)
[2019-08-24] MEDS: CARDIZEM CD 120 MG 24-HR PO SCH (08:30)
[2019-08-24] MEDS: SYNTHROID 25 mcg TAB PO SCH (08:30)
[2019-08-24] MEDS: DIFLUCAN 200 MG IV PREMIX* 200 MG/100 ML BAG IV SCH (08:30)
[2019-08-24] MEDS: PROTONIX INJ 40 MG VIAL IVP SCH (08:31)
[2019-08-24] MEDS: FLONASE NASAL SPRAY ENOSTRIL SCH (08:32)
[2019-08-24] MEDS ORDERED: LASIX IVP SCH (09:00)
[2019-08-24] MEDS: LASIX PO SCH ×2 (10:46→21:15)
[2019-08-24] MEDS: ROXICODONE TAB 5 MG PO PRN (11:29)
[2019-08-24] MEDS: ZOFRAN TAB 4 MG PO PRN (19:24)
[2019-08-25] MEDS: DUONEB 0.5 MG/3 MG (3 mL) NEB SCH ×4 (00:45→12:05)
[2019-08-25] MEDS: PHENERGAN INJ 25 MG IM PRN ×2 (03:38→10:21)
[2019-08-25] MEDS: LIPASE PROTEASE AMYLASE PO SCH ×2 (06:19→14:39)
[2019-08-25] MEDS: XANAX PO SCH ×2 (06:19→14:38)
[2019-08-25] MEDS: ROXICODONE TAB 5 MG PO PRN (06:20)
[2019-08-25 06:27] LABS: BASOPHILS # (AUTO) 0.1 X10^3/uL (0.0-0.1); BASOPHILS % (AUTO) 1.3 % (0.2-1.0); EOSINOPHILS # (AUTO) 0.5 x10^3/uL (0.0-0.2); EOSINOPHILS % (AUTO) 7.8 % (0.9-2.9); HEMATOCRIT 34.4 % (36.0-47.0); HEMOGLOBIN 11.5 g/dL (12.0-16.0); LYMPHOCYTES # (AUTO) 1.3 X10^3/uL (1.3-2.9); LYMPHOCYTES % (AUTO) 23.1 % (21.0-51.0); MEAN CORPUSCULAR HEMOGLOBIN 30.7 pg (27.0-34.0); MEAN CORPUSCULAR HGB CONC 33.4 g/dL (33.0-35.0); MEAN CORPUSCULAR VOLUME 91.8 fL (80.0-100.0); MEAN PLATELET VOLUME 9.2 fL (7.4-11.0); MONOCYTES # (AUTO) 0.8 x10^3/uL (0.3-0.8); MONOCYTES % (AUTO) 13.5 % (0.0-13.0); NEUTROPHILS # (AUTO) 3.1 x10^3/uL (2.2-4.8); NEUTROPHILS % (AUTO) 54.3 % (42.0-75.0); PLATELET COUNT 268 X10^3/uL (150.0-450.0); RED BLOOD COUNT 3.75 X10^6/uL (3.5-5.4); RED CELL DISTRIBUTION WIDTH 14.6 % (11.6-16.5); WHITE BLOOD COUNT 5.8 X10^3/uL (3.6-10.0)
[2019-08-25 06:59] LABS: ALANINE AMINOTRANSFERASE 22 Units/L (12-78); ALBUMIN 2.7 g/dL (3.4-5.0); ALKALINE PHOSPHATASE 126 Units/L (46-116); ASPARTATE AMINO TRANSFERASE 42 Units/L (15-37); BLOOD UREA NITROGEN 7 mg/dL (7-18); CALCIUM 8.8 mg/dL (8.5-10.1); CARBON DIOXIDE 34.5 mmol/L (21-32); CHLORIDE 96 mmol/L (98-107); COR CA(FOR HYPOALB) 9.8 mg/dL (8.5-10.1); CREATININE 1.29 mg/dL (0.55-1.02); SODIUM 140 mmol/L (136-145); TOTAL PROTEIN 7.1 g/dL (6.4-8.2); eGFR NON BLACK RACES 44 (>60)
[2019-08-25] MEDS: ZOFRAN TAB 4 MG PO PRN (08:54)
[2019-08-25] MEDS: CARDIZEM CD 120 MG 24-HR PO SCH (08:55)
[2019-08-25] MEDS: FLONASE NASAL SPRAY ENOSTRIL SCH (08:55)
[2019-08-25] MEDS: SYNTHROID 25 mcg TAB PO SCH (08:56)
[2019-08-25] MEDS ORDERED: PROTONIX TAB 40 MG PO SCH (09:00)
[2019-08-25] MEDS ORDERED: DIFLUCAN PO SCH (09:00)
--- NOTE | 2019-08-25 10:31 | RAD ---
HISTORYAbdominal painSTUDYSupine abdomen, two viewsCOMPARISONJanuary 2019FINDINGSThere is decreased distention of bowel. There are cholecystectomy clips. There are degenerative changes in the lower lumbar spine.IMPRESSIONDecreased gassy is distension of loops of small bowel implying resolving partial small-bowel obstruction or ileusElectronically signed by: DALIA MACK (Aug 25, 2019 10:30:29)
[2019-08-25 14:06] VITALS: BP 120/59
== END 2019-08-25 15:55 | disposition home health service (06) | DRG 389 ==
LOC: ER 04:23 → ICU 04:23 → MED/SURG 08-23 17:15
PROVIDERS: ADMIT Internal Medicine; ATTEND Internal Medicine
DX: R19.7 Diarrhea, unspecified; N18.3 Chronic kidney disease, stage 3 (moderate); I25.10 Atherosclerotic heart disease of native coronary artery without angina pectoris; Z99.81 Dependence on supplemental oxygen; R11.2 Nausea with vomiting, unspecified; F41.8 Other specified anxiety disorders; E66.01 Morbid (severe) obesity due to excess calories; R74.0 Nonspecific elevation of levels of transaminase and lactic acid dehydrogenase [LDH]; J44.9 Chronic obstructive pulmonary disease, unspecified; I13.0 Hypertensive heart and chronic kidney disease with heart failure and stage 1 through stage 4 chronic kidney disease, or unspecified chronic kidney disease; K21.9 Gastro-esophageal reflux disease without esophagitis; E11.65 Type 2 diabetes mellitus with hyperglycemia; I50.22 Chronic systolic (congestive) heart failure; K56.51 Intestinal adhesions [bands], with partial obstruction; M51.37 Other intervertebral disc degeneration, lumbosacral region; R06.03 Acute respiratory distress; R06.02 Shortness of breath; R10.84 Generalized abdominal pain; R94.4 Abnormal results of kidney function studies; E78.49 Other hyperlipidemia
CPT/HCPCS: 36415; 36600; 71010; 71045; 74000; 74018; 80053; 81001; 81003; 82150; 82270; 82550; 82553; 82803; 83630; 83690; 83735; 84484; 85025; 87045; 87338; 87427; 87449; 87493; 87899; 93005; 94640; 94660; 96365; 96372; 96374; 96375; 99283; 99284; A4216; A4222; A4618; A7030; C9113; J7030; G0378; J0456; J1450; J1642; J1940; J2060; J2270; J2405; J2550; J2765; J3475; J7040; J7050; J7620; J8499; S0119; S0181

== ENCOUNTER 2019-09-10 13:39 | Observation (INO) ==
[2019-09-10 13:54] VITALS: BMI 50.5
[2019-09-10] MEDS ORDERED: ZOFRAN INJ 4 MG VIAL IVP ONE (14:09)
--- NOTE | 2019-09-10 14:15 | DR.NAUSEAF ---
HPI Time Seen Time Seen by Provider: 09/10/19 14:00 Primary Care Physician Primary Care Physician: JASON CESAR HPI Comment HPI Comment: vomiting Complaints Chief Complaint Doctors Comments: Home health nurse called EMS because of intractable vomiting. She also called pt's PCP who said to call EMS and that she will want pt likely admitted. Pt says she has been vomiting for 2-3 days. Diarrhea yesterday (3 loose BM's) and once today. No fever. No cough or URI. She says surgeon Dr. Beck has said she might have some type of blockage. Pt was seen here earlier today at 3:[address] abd neg and essentially n'l labs. Chief Complaint:: PT. C/O N/V/D X 3 DAYS. PT. WAS IN THE ER AT 1203 ON TODAY'S DATE. PT'S HOME HEALTH CARE NURSE, LE, CALLED PRIOR TO ARRIVAL STATING PT. HAD VOMITED FOUR TIMES SINCE SHE HAD BEEN AT PT'S HOME. Reviewed Nurses Notes Reviewed: Yes Source History Provided: Patient, EMS and Other (old chart) Mode of Arrival Mode of Arrival: EMS Timing Onset of Chief Complaint: 09/07/19 Severity Number of episodes of vomiting over last 24 hours: 10 Context Onset: Spontaneous History of: Abdominal Operation Associated Signs and Symptoms Abdominal Pain Quality: Aching Abdominal Pain Location: Epigastric Symptoms: Abdominal Pain and Diarrhea; denies Hematemesis, Melena, Hematochezia and Fever PMH PMH Past Medical History: Yes Past Medical History: Anemia, Anxiety, CHF, COPD, Coronary Artery Disease, Diabetes, Dyslipidemia, GERD, Hypertension and Renal Disease Past Medical History Comment: morbid obesity Past Surgical History: Yes Surgical History: Appendectomy, Bowel Resection, CABG/Valve Surgery, Cholecystectomy, HAT BLOCK MAKER Surgery and Tonsillectomy Past Surgical History Comment: 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 Family History History of Family Medical Conditions: Yes Family Medical History: Diabetes Mellitus and Hypertension Social History Does patient currently use any type of tobacco product: No Have you used tobacco products in the last 12 months: No Type of Tobacco Use: None Does any household member use tobacco: No Alcohol Use: None Do you use any recreational Drugs:: No Lives With: Significant Other Lives Where: Home infectious screening In the last 2 months have you had wt loss of >10#?: NO Have you had fever, night sweats or hemotysis?: No Have you traveled outside the country in the last 6 months?: No Isolation: Standard ROS Review of Systems Constitutional: No Symptoms Reported; negative Fever Respiratoy: No Symptoms Reported Cardiovascular: No Symptoms Reported Gastrointestinal/Abdominal: Abdominal Pain, Diarrhea, Nausea and Vomiting Genitourinary: No Symptoms Reported All Other Systems: Reviewed and Negative PE Vital Signs Vitals: Temperature 98.6 F Pulse Rate 107 Respiratory Rate 22 Blood Pressure [Left Arm] 162/78 Blood Pressure 122/57 O2 Sat by Pulse Oximetry 93 General Limitations: No Limitations General Appearance: Alert, Anxious and Other (actively dry-heaving) Eyes Eye exam: Normal Appearance and EOMI; negative Scleral Icterus ENT ENT Exam: Normal Exam and Mucous Membranes Moist Neck Neck Exam: Normal Inspection; negative Meningismus Chest Chest Inspection: Symmetric Chest Wall Rise Respiratory Respiratory Exam: Normal Lung Sounds Bilat Cardiovascular Cardiovascular Exam: Normal Rhythm and Tachycardia Abdominal Exam Abdominal Exam: Normal Bowel Sounds, Soft and Tenderness; negative Rebound and Rigidity Abdominal Tenderness: Epigastrium Rectal Rectal Exam: Deferred External Exam: Female: Deferred : Speculum Exam (Female): Deferred : Bimanual Exam (female): Deferred Extremities Extremities Exam: Full ROM and Normal Capillary Refill Back Back Exam: Full ROM; negative (R) CVA Tenderness and (L) CVA Tenderness Neurologic Neurological Exam: Alert and Oriented X3 Psychiatric Psychiatric Exam: Normal Affect and Normal Mood Skin Skin Exam: Warm, Dry and Normal Color MDM Differential Diagnosis Differential Diagnosis: Considerations may Include:: Bowel Obstruction, Gastritis and Gastroenteritis ROR Labs Reviewed Laboratory Results Reviewed?: Yes Result Diagrams: 09/10/19 14:28 09/10/19 14:28 Laboratory: WBC 8.0 X10^3/uL (3.6-10.0) 09/10/19 14: RBC 3.82 X10^6/uL (3.5-5.4) 09/10/19 14:28 Hgb 11.7 g/dL (12.0-16.0) L 09/10/19 14:28 Hct 34.7 % (36.0-47.0) L 09/10/19 14:28 MCV 90.8 fL (80.0-100.0) 09/10/19 14: MCH 30.5 pg (27.0-34.0) 09/10/19 14:28 MCHC 33.6 g/dL (33.0-35.0) 09/10/19 14:28 RDW 14.4 % (11.6-16.5) 09/10/19 14:28 Plt Count 303 X10^3/uL (150.0-450.0) 09/10/19 14:28 MPV 8.4 fL (7.4-11.0) 09/10/19 14:28 Neut % (Auto) 70.6 % (42.0-75.0) 09/10/19 14:28 Lymph % (Auto) 15.2 % (21.0-51.0) L 09/10/19 14:28 [place] % (Auto) 10.9 % (0.0-13.0) 09/10/19 14:28 Eos % (Auto) 2.0 % (0.9-2.9) 09/10/19 14:28 Baso % (Auto) 1.3 % (0.2-1.0) H 09/10/19 14:28 Neut # (Auto) 5.7 x10^3/uL (2.2-4.8) H 09/10/19 14:28 Lymph # (Auto) 1.2 X10^3/uL (1.3-2.9) L 09/10/19 14:28 [place] # (Auto) 0.9 x10^3/uL (0.3-0.8) H 09/10/19 14:28 Eos # (Auto) 0.2 x10^3/uL (0.0-0.2) 09/10/19 14:28 Baso # (Auto) 0.1 X10^3/uL (0.0-0.1) 09/10/19 14:28 Absolute Nucleated RBC 0.0 /100WBC 09/10/19 14:28 Sodium 136 mmol/L (136-145) 09/10/19 14:28 Corrected Sodium 137 mmol/L (136-145) 09/10/19 14:28 Potassium 3.4 mmol/L (3.5-5.1) L 09/10/19 14:28 Chloride 93 mmol/L (98-107) L 09/10/19 14:28 Carbon Dioxide 37.4 mmol/L (21-32) H 09/10/19 14:28 BUN 7 mg/dL (7-18) 09/10/19 14:28 Creatinine 1.68 mg/dL (0.55-1.02) H 09/10/19 14:28 Est GFR (MDRD) Af Amer 39 (>60) L 09/10/19 14:28 Est GFR (MDRD) Non-Af 32 (>60) L 09/10/19 14:28 Glucose 131 mg/dL (65-99) H 09/10/19 14:28 Calcium 8.8 mg/dL (8.5-10.1) 09/10/19 14:28 Corrected Calcium 9.7 mg/dL (8.5-10.1) 09/10/19 14:28 Total Bilirubin 0.80 mg/dL (0.2-1.0) 09/10/19 14:28 AST 73 Units/L (15-37) H 09/10/19 14:28 ALT 32 Units/L (12-78) 09/10/19 14:28 Alkaline Phosphatase 188 Units/L (46-116) H 09/10/19 14:28 Total Protein 7.5 g/dL (6.4-8.2) 09/10/19 14:28 Albumin 2.9 g/dL (3.4-5.0) L 09/10/19 14:28 Globulin 4.6 g/dL (2.5-4.5) H 09/10/19 14:28 Albumin/Globulin Ratio 0.6 Ratio (1.1-2.1) L 09/10/19 14:28 Opioid Opioid Risk Tool Age (Jann box if 16-45): No History of Preadolescent Sexual Abuse: No Total: 0 Total Score Risk Category: Low Risk Copyright: Alexis ROJAS predicting aberrant behaviors ADDITIONAL NOTES Additional Notes Additional Notes: Diagnosis: ileus, abdominal pain, intractable vomiting. will place in obs per Dr. Coley
[2019-09-10] MEDS ORDERED: PROTONIX INJ 40 MG VIAL IVP ONE (14:26)
[2019-09-10] MEDS ORDERED: NS 1000 ML 1,000 ML ONE (14:35)
[2019-09-10] MEDS ORDERED: ZOFRAN INJ 4 MG VIAL ONE (14:36)
[2019-09-10] MEDS ORDERED: PROTONIX INJ 40 MG VIAL ONE (14:36)
[2019-09-10 14:44] LABS: BASOPHILS # (AUTO) 0.1 X10^3/uL (0.0-0.1); BASOPHILS % (AUTO) 1.3 % (0.2-1.0); EOSINOPHILS # (AUTO) 0.2 x10^3/uL (0.0-0.2); HEMATOCRIT 34.7 % (36.0-47.0); HEMOGLOBIN 11.7 g/dL (12.0-16.0); LYMPHOCYTES # (AUTO) 1.2 X10^3/uL (1.3-2.9); LYMPHOCYTES % (AUTO) 15.2 % (21.0-51.0); MEAN CORPUSCULAR HEMOGLOBIN 30.5 pg (27.0-34.0); MEAN CORPUSCULAR HGB CONC 33.6 g/dL (33.0-35.0); MEAN CORPUSCULAR VOLUME 90.8 fL (80.0-100.0); MEAN PLATELET VOLUME 8.4 fL (7.4-11.0); MONOCYTES # (AUTO) 0.9 x10^3/uL (0.3-0.8); MONOCYTES % (AUTO) 10.9 % (0.0-13.0); NEUTROPHILS # (AUTO) 5.7 x10^3/uL (2.2-4.8); NEUTROPHILS % (AUTO) 70.6 % (42.0-75.0); PLATELET COUNT 303 X10^3/uL (150.0-450.0); RED BLOOD COUNT 3.82 X10^6/uL (3.5-5.4); RED CELL DISTRIBUTION WIDTH 14.4 % (11.6-16.5)
[2019-09-10 14:54] LABS: ALBUMIN 2.9 g/dL (3.4-5.0); CALCIUM 8.8 mg/dL (8.5-10.1); CARBON DIOXIDE 37.4 mmol/L (21-32); COR CA(FOR HYPOALB) 9.7 mg/dL (8.5-10.1); CREATININE 1.68 mg/dL (0.55-1.02); TOTAL PROTEIN 7.5 g/dL (6.4-8.2)
[2019-09-10] MEDS ORDERED: NS 1000 ML 1,000 ML IV SCH (15:00)
[2019-09-10] MEDS ORDERED: PROVENTIL NEB TX 0.083% 2.5MG/ 3ML ONE (15:32)
[2019-09-10] MEDS ORDERED: ATIVAN INJ 2 MG VIAL ONE (15:35)
[2019-09-10] MEDS ORDERED: PROVENTIL NEB TX 0.083% 2.5MG/ 3ML NEB ONE (15:38)
[2019-09-10] MEDS: ATIVAN INJ 2 MG VIAL IVP SCH (15:40)
[2019-09-10] MEDS: NS 1000 ML 1,000 ML IV SCH (17:14)
[2019-09-10] MEDS: K-RIDER 10 MEQ/NS 100 ML 10 MEQ/100 ML BAG IV SCH (17:14)
[2019-09-10] MEDS: DUONEB 0.5 MG/3 MG (3 mL) NEB SCH (17:14)
[2019-09-10] MEDS: REGLAN INJ 10 MG VIAL IVP SCH ×2 (17:15→21:00)
[2019-09-10] MEDS: PROTONIX INJ 40 MG VIAL IVP SCH (20:49)
[2019-09-11] MEDS: ATIVAN INJ 2 MG VIAL IVP SCH ×3 (00:03→15:07)
[2019-09-11] MEDS: ZOFRAN INJ 4 MG VIAL IVP PRN ×2 (00:04→10:28)
[2019-09-11] MEDS: DUONEB 0.5 MG/3 MG (3 mL) NEB SCH ×4 (00:10→17:22)
[2019-09-11] MEDS: NS 1000 ML 1,000 ML IV SCH ×3 (03:11→15:07)
[2019-09-11] MEDS: K-RIDER 10 MEQ/NS 100 ML 10 MEQ/100 ML BAG IV SCH ×2 (04:04→15:07)
[2019-09-11] MEDS: REGLAN INJ 10 MG VIAL IVP SCH ×3 (04:04→15:07)
[2019-09-11 06:59] LABS: BASOPHILS # (AUTO) 0.1 X10^3/uL (0.0-0.1); BASOPHILS % (AUTO) 1.1 % (0.2-1.0); EOSINOPHILS # (AUTO) 0.2 x10^3/uL (0.0-0.2); EOSINOPHILS % (AUTO) 3.1 % (0.9-2.9); HEMATOCRIT 31.7 % (36.0-47.0); HEMOGLOBIN 10.6 g/dL (12.0-16.0); LYMPHOCYTES # (AUTO) 1.6 X10^3/uL (1.3-2.9); LYMPHOCYTES % (AUTO) 21.1 % (21.0-51.0); MEAN CORPUSCULAR HEMOGLOBIN 30.5 pg (27.0-34.0); MEAN CORPUSCULAR HGB CONC 33.4 g/dL (33.0-35.0); MEAN CORPUSCULAR VOLUME 91.4 fL (80.0-100.0); MEAN PLATELET VOLUME 8.5 fL (7.4-11.0); MONOCYTES # (AUTO) 0.8 x10^3/uL (0.3-0.8); MONOCYTES % (AUTO) 10.7 % (0.0-13.0); NEUTROPHILS # (AUTO) 4.9 x10^3/uL (2.2-4.8); PLATELET COUNT 233 X10^3/uL (150.0-450.0); RED BLOOD COUNT 3.47 X10^6/uL (3.5-5.4); RED CELL DISTRIBUTION WIDTH 14.5 % (11.6-16.5); WHITE BLOOD COUNT 7.7 X10^3/uL (3.6-10.0)
[2019-09-11 07:08] LABS: ALBUMIN 2.5 g/dL (3.4-5.0); CALCIUM 8.2 mg/dL (8.5-10.1); CARBON DIOXIDE 34.6 mmol/L (21-32); COR CA(FOR HYPOALB) 9.4 mg/dL (8.5-10.1); CREATININE 1.61 mg/dL (0.55-1.02); TOTAL PROTEIN 6.5 g/dL (6.4-8.2)
[2019-09-11] MEDS: PROTONIX INJ 40 MG VIAL IVP SCH (08:47)
[2019-09-11] MEDS: PROVENTIL NEB TX 0.083% 2.5MG/ 3ML NEB PRN ×2 (09:33→15:54)
--- NOTE | 2019-09-11 12:22 | RAD ---
HISTORYPAIN, HX OF FRACTURESTUDYKNEE RIGHT x-ray three viewsCOMPARISONMRI 04/29/2019FINDINGSNo fracture or dislocation.Soft tissue swelling and likely mild joint effusion.No arthritic change are seen.IMPRESSIONNo bony abnormality is seen. Likely soft tissue swelling and joint effusion.Electronically signed by: Cole Mendez (Sep 11, 2019 12:20:39)
[2019-09-11 16:10] VITALS: BP 127/56
== END 2019-09-11 18:20 | disposition home health service (06) ==
LOC: ER 13:39 → MED/SURG 13:39
PROVIDERS: ADMIT Internal Medicine; ATTEND Internal Medicine
CPT/HCPCS: 36415; 36591; 73564; 80053; 85025; 94640; 94760; 96360; 96361; 96365; 96374; 96375; 99284; A4216; A4222; C9113; G0378; J1642; J2060; J2405; J2765; J3480; J7030; J7613; J7620

== ENCOUNTER 2019-10-08 17:47 | Inpatient (IN) ==
[2019-10-08] MEDS ORDERED: CARDIZEM INJ 50 MG VIAL IVP ONE (17:55)
[2019-10-08] MEDS ORDERED: CARDIZEM INJ 50 MG VIAL ONE (18:01)
[2019-10-08] MEDS ORDERED: NS 100 ML IV 100 ML IV ONE (18:02)
[2019-10-08] MEDS ORDERED: CARDIZEM INJ 125 MG VIAL ONE (18:02)
[2019-10-08] MEDS: CARDIZEM INJ 125 MG VIAL 125 MG in NS 100 ML IV 100 ML IV PRN (18:07)
--- NOTE | 2019-10-08 18:10 | DR.GENAD ---
HPI Time Seen Time Seen by Provider: 10/08/19 17:55 Complaint/Symptoms Chief Complaint Doctors Comments: respiratory failure and distress, acute onset at home, laying in her hospital bed, a fib with rvr, has hx of afib, hr took off and she feels cp and sob, gasping for air. she is morbidly obese, hx of copd a fib pt unable to speak sentences Nurses notes reviewed Nurses Notes Review: Yes Source History Provided: EMS Mode of Arrival Mode of Arrival: EMS Timing Came on: Suddenly Duration Duration: Unknown Duration: Minutes Severity Severity: Severe Modifying Factors Worsens:: nothing Improves:: nothing Associated Signs and Symptoms Associated Signs and Symptoms: cold extremities PMH PMH Past Medical History: Anemia, Anxiety, CHF, COPD, Coronary Artery Disease, Diabetes, Dyslipidemia, GERD, Hypertension and Renal Disease Past Surgical History: Yes Surgical History: Appendectomy, Bowel Resection, CABG/Valve Surgery, Cho lecystectomy, INDEPENDENT PRODUCER Surgery and Tonsillectomy Family History Family Medical History: Diabetes Mellitus and Hypertension Social History Do you use any recreational Drugs:: No infectious screening Isolation: Standard ROS Review of Systems Constitutional: No Symptoms Reported, See HPI, Weakness and Fatigue Eyes: No Symptoms Reported ENTM: No Symptoms Reported Respiratoy: No Symptoms Reported, Short of Breath and Other (dullness in both lobes poor air exchange ) Cardiovascular: No Symptoms Reported, See HPI, Chest Pain and Palpitations Gastrointestinal/Abdominal: No Symptoms Reported Genitourinary: No Symptoms Reported Neurological: No Symptoms Reported Musculoskeletal: No Symptoms Reported Integumentary: No Symptoms Reported Hematologic/Lymphatic: No Symptoms Reported Endocrine: No Symptoms Reported Psychiatric: No Symptoms Reported All Other Systems: Reviewed and Negative Unable to Obtain Due To: Altered mental status PE Vital Signs Vitals: Temperature 98.1 F Pulse Rate [Right Brachial] 115 Pulse Rate 111 Respiratory Rate 16 Blood Pressure [Left Arm] 165/75 Blood Pressure [Right Arm] 156/67 Blood Pressure 121/74 O2 Sat by Pulse Oximetry 98 General Limitations: No Limitations General Appearance: Alert and In No Apparent Distress Head Head Exam: Normal Inspection Eyes Eye exam: Normal Appearance ENT ENT Exam: Normal Exam External Ear Exam: Normal External Inspection TM/Canal Exam: Bilateral: Normal Nose Exam: Normal Nose Exam Mouth Exam: Normal Inspection Throat Exam: Normal Inspection Neck Neck Exam: Normal Inspection Chest Chest Inspection: Normal Inspection Respiratory Respiratory Exam: Normal Lung Sounds Bilat Respiratory Exam: Bilateral: Clear to Auscultation Cardiovascular Cardiovascular Exam: Regular Rate and Normal Rhythm Abdominal Exam Abdominal Exam: Normal Inspection, Normal Bowel Sounds and Soft Extremities Extremities Exam: Normal Inspection Back Back Exam: Normal Inspection Neurologic Neurological Exam: Alert and Oriented X3 Psychiatric Psychiatric Exam: Normal Affect and Normal Mood Skin Skin Exam: Warm, Dry, Intact and Normal Color MDM Differential Diagnosis Differential Diagnosis: respiratory failure, dysopnea, sob afib with rvr COURSE Treatment Treatment: pt on 50% bipap 98% sat now, wbc 14.2, lac acid 3.9, bs 132 trop .06 k 3.4 cr 1.5 bun 12 gfr 37 bnp 299 plts 380 cxr atelectasis, bibasilar infiltrates, ekg sinus tachy prolonged qt interval rate [address] horn- admission icu Reevaluation 1st: Improved Consultation Consultation Comments: dr horn admitting md Education/Counseling Education/Counseling: Family ROR Labs Reviewed Result Diagrams: 10/08/19 18:37 10/08/19 18:37 Laboratory: WBC 14.2 X10^3/uL (3.6-10.0) H 10/08/19 18:37 RBC 4.15 X10^6/uL (3.5-5.4) 10/08/19 18:37 Hgb 12.2 g/dL (12.0-16.0) 10/08/19 18:37 Hct 37.3 % (36.0-47.0) 10/08/19 18:37 MCV 89.9 fL (80.0-100.0) 10/08/19 18:37 MCH 29.3 pg (27.0-34.0) 10/08/19 18:37 MCHC 32.6 g/dL (33.0-35.0) L 10/08/19 18:37 RDW 14.7 % (11.6-16.5) 10/08/19 18:37 Plt Count 380 X10^3/uL (150.0-450.0) 10/08/19 18:37 MPV 8.9 fL (7.4-11.0) 10/08/19 18:37 Neut % (Auto) 80.4 % (42.0-75.0) H 10/08/19 18:37 Lymph % (Auto) 11.4 % (21.0-51.0) L 10/08/19 18:37 [place] % (Auto) 6.4 % (0.0-13.0) 10/08/19 18:37 Eos % (Auto) 0.4 % (0.9-2.9) L 10/08/19 18:37 Baso % (Auto) 1.4 % (0.2-1.0) H 10/08/19 18:37 Neut # (Auto) 11.5 x10^3/uL (2.2-4.8) H 10/08/19 18:37 Lymph # (Auto) 1.6 X10^3/uL (1.3-2.9) 10/08/19 18:37 [place] # (Auto) 0.9 x10^3/uL (0.3-0.8) H 10/08/19 18:37 Eos # (Auto) 0.1 x10^3/uL (0.0-0.2) 10/08/19 18:37 Baso # (Auto) 0.2 X10^3/uL (0.0-0.1) H 10/08/19 18:37 Absolute Nucleated RBC 0.1 /100WBC 10/08/19 18:37 Sample Site Lr 10/08/19 19:39 ABG pH 7.380 (7.35-7.45) 10/08/19 19:39 ABG pCO2 48.0 mmHg (35.0-45.0) H 10/08/19 19:39 ABG pO2 113.0 mmHg (80.0-100.0) H 10/08/19 19:39 ABG HCO3 28.4 mmol/L (22-26) H 10/08/19 19:39 ABG O2 Saturation 98.0 % (90-100) 10/08/19 19:39 ABG Base Excess 2.6 mmol/L (-2.0-2.0) H 10/08/19 19:39 [place] Test Pos 10/08/19 19:39 A-a Gradient 112.0 mmHg 10/08/19 19:39 FiO2 40.0 10/08/19 19:39 Blood Gas Comments Ferímn well 10/08/19 19:39 Sodium 138 mmol/L (136-145) 10/08/19 18:37 Corrected Sodium 139 mmol/L (136-145) 10/08/19 18:37 Potassium 3.4 mmol/L (3.5-5.1) L 10/08/19 18:37 Chloride 98 mmol/L (98-107) 10/08/19 18:37 Carbon Dioxide 27.8 mmol/L (21-32) 10/08/19 18:37 BUN 12 mg/dL (7-18) 10/08/19 18:37 Creatinine 1.50 mg/dL (0.55-1.02) H 10/08/19 18:37 Est GFR (MDRD) Af Amer 45 (>60) L 10/08/19 18:37 Est GFR (MDRD) Non-Af 37 (>60) L 10/08/19 18:37 Glucose 132 mg/dL (65-99) H 10/08/19 18:37 Lactic Acid 3.9 mmol/L (0.4-2.0) H 10/08/19 18:37 Calcium 7.4 mg/dL (8.5-10.1) L 10/08/19 18:37 Corrected Calcium 8.1 mg/dL (8.5-10.1) L 10/08/19 18:37 Total Bilirubin 1.20 mg/dL (0.2-1.0) H 10/08/19 18:37 AST 79 Units/L (15-37) H 10/08/19 18:37 ALT 19 Units/L (12-78) 10/08/19 18:37 Alkaline Phosphatase 212 Units/L (46-116) H 10/08/19 18:37 Creatine Kinase 638 Units/L (26-192) H 10/08/19 18:37 CK-MB (CK-2) 3.6 ng/mL (0-4.0) 10/08/19 18:37 CK/CKMB % Calc 0.6 % (<4) 10/08/19 18:37 Troponin I 0.06 ng/mL (0-1.5) 10/08/19 18:37 B-Natriuretic Peptide 299 pg/mL (0-79) H 10/08/19 18:37 Total Protein 7.8 g/dL (6.4-8.2) 10/08/19 18:37 Albumin 3.1 g/dL (3.4-5.0) L 10/08/19 18:37 Globulin 4.7 g/dL (2.5-4.5) H 10/08/19 18:37 Albumin/Globulin Ratio 0.7 Ratio (1.1-2.1) L 10/08/19 18:37 EKG [place]: Normal Rhythm: NSR Block: None Hypertrophy: None ST: Normal Opioid Opioid Risk Tool Age (Jann box if 16-45): No History of Preadolescent Sexual Abuse: No Total: 0 Total Score Risk Category: Low Risk Copyright: Alexis ROJAS predicting aberrant behaviors Diagnosis Discharge Problem: COPD (chronic obstructive pulmonary disease), Hypertension, Respiratory distress, CHF (congestive heart failure), SOB (shortness of breath), Dyspnea, P neumonia, COPD exacerbation, Hypokalemia Instructions Forms: Patient Portal ADDITIONAL NOTES Additional Notes Additional Notes: ekg interpreted by me hr 118 sinus tachycardia prolonged qt interval
[2019-10-08] MEDS ORDERED: SOLU-Medrol 125 MG VIAL IVP ONE (18:11)
[2019-10-08 18:13] LABS: ABG BASE EXCESS -1.5 mmol/L (-2.0-2.0)
[2019-10-08 18:14] LABS: ABG ALLEN TEST POS
[2019-10-08] MEDS ORDERED: SOLU-Medrol 125 MG VIAL ONE (18:14)
[2019-10-08] MEDS ORDERED: ATIVAN INJ 2 MG VIAL ONE (18:16)
[2019-10-08] MEDS ORDERED: ATIVAN INJ 2 MG VIAL IVP ONE (18:18)
--- NOTE | 2019-10-08 18:33 | RAD ---
HISTORYacute resp failure, tachycardiaSTUDYCHEST, 1 [id number]/24/2020FINDINGSThe heart is mildly enlarged but unchanged. The pulmonary vessels are engorged centrally and more prominent. There are hazy subsegmental densities along the lung bases which are more apparent. There is right Port-A-Cath in place which is unchanged.IMPRESSIONStable mild cardiomegaly with mild central pulmonary congestion which is more prominent.Mild bibasilar atelectasis or early infiltrates which is more prominent.No change in the right Port-A-Cath.Electronically signed by: DAVONTE MCCORD (Oct 08, 2019 18:31:27)
[2019-10-08] MEDS ORDERED: VANCOMYCIN IV *PREMIX 1 G/200 ML BAG 1 G/200 ML PIGGYBACK IV SCH (18:39)
[2019-10-08] MEDS ORDERED: VANCOMYCIN HCL ONE (18:43)
[2019-10-08] MEDS ORDERED: NS 1000 ML 1,000 ML ONE (18:47)
[2019-10-08] MEDS ORDERED: NS 250 ML IV 250 ML IV ONE (18:47)
[2019-10-08 19:07] LABS: BASOPHILS # (AUTO) 0.2 X10^3/uL (0.0-0.1); BASOPHILS % (AUTO) 1.4 % (0.2-1.0); EOSINOPHILS # (AUTO) 0.1 x10^3/uL (0.0-0.2); EOSINOPHILS % (AUTO) 0.4 % (0.9-2.9); HEMATOCRIT 37.3 % (36.0-47.0); HEMOGLOBIN 12.2 g/dL (12.0-16.0); LYMPHOCYTES # (AUTO) 1.6 X10^3/uL (1.3-2.9); LYMPHOCYTES % (AUTO) 11.4 % (21.0-51.0); MEAN CORPUSCULAR HEMOGLOBIN 29.3 pg (27.0-34.0); MEAN CORPUSCULAR HGB CONC 32.6 g/dL (33.0-35.0); MEAN CORPUSCULAR VOLUME 89.9 fL (80.0-100.0); MEAN PLATELET VOLUME 8.9 fL (7.4-11.0); MONOCYTES # (AUTO) 0.9 x10^3/uL (0.3-0.8); MONOCYTES % (AUTO) 6.4 % (0.0-13.0); NEUTROPHILS # (AUTO) 11.5 x10^3/uL (2.2-4.8); NEUTROPHILS % (AUTO) 80.4 % (42.0-75.0); PLATELET COUNT 380 X10^3/uL (150.0-450.0); RED BLOOD COUNT 4.15 X10^6/uL (3.5-5.4); RED CELL DISTRIBUTION WIDTH 14.7 % (11.6-16.5); WHITE BLOOD COUNT 14.2 X10^3/uL (3.6-10.0)
[2019-10-08 19:24] LABS: LACTIC ACID 3.9 mmol/L (0.4-2.0)
[2019-10-08 19:27] LABS: CALCIUM 7.4 mg/dL (8.5-10.1); CARBON DIOXIDE 27.8 mmol/L (21-32); CREATININE 1.5 mg/dL (0.55-1.02); TROPONIN I 0.06 ng/mL (0-1.5)
[2019-10-08] MEDS ORDERED: NS 1000 ML 1,000 ML IV ONE (19:33)
[2019-10-08 19:51] LABS: ABG BASE EXCESS 2.6 mmol/L (-2.0-2.0); ABG HCO3 28.4 mmol/L (22-26)
[2019-10-08 19:52] LABS: ABG ALLEN TEST POS
[2019-10-08 20:01] LABS: ALBUMIN 3.1 g/dL (3.4-5.0); CKMB % 0.6 % (<4); COR CA(FOR HYPOALB) 8.1 mg/dL (8.5-10.1); CREATINE KINASE MB 3.6 ng/mL (0-4.0); TOTAL PROTEIN 7.8 g/dL (6.4-8.2)
[2019-10-08] MEDS ORDERED: HumuLIN R SUBCUT PRN (20:19)
[2019-10-09 00:21] VITALS: BMI 48.5
[2019-10-09] MEDS: DUONEB 0.5 MG/3 MG (3 mL) NEB SCH ×2 (00:30→05:46)
[2019-10-09 01:12] LABS: CKMB % 0.6 % (<4); CREATINE KINASE MB 2.6 ng/mL (0-4.0); TROPONIN I 0.06 ng/mL (0-1.5)
[2019-10-09 06:10] LABS: BASOPHILS # (AUTO) 0.1 X10^3/uL (0.0-0.1); BASOPHILS % (AUTO) 0.5 % (0.2-1.0); EOSINOPHILS # (AUTO) 0.1 x10^3/uL (0.0-0.2); EOSINOPHILS % (AUTO) 0.4 % (0.9-2.9); HEMATOCRIT 33.7 % (36.0-47.0); HEMOGLOBIN 10.9 g/dL (12.0-16.0); LYMPHOCYTES # (AUTO) 0.8 X10^3/uL (1.3-2.9); MEAN CORPUSCULAR HEMOGLOBIN 29.2 pg (27.0-34.0); MEAN CORPUSCULAR HGB CONC 32.2 g/dL (33.0-35.0); MEAN CORPUSCULAR VOLUME 90.5 fL (80.0-100.0); MEAN PLATELET VOLUME 10.4 fL (7.4-11.0); MONOCYTES # (AUTO) 0.2 x10^3/uL (0.3-0.8); MONOCYTES % (AUTO) 1.6 % (0.0-13.0); NEUTROPHILS # (AUTO) 12.5 x10^3/uL (2.2-4.8); NEUTROPHILS % (AUTO) 91.5 % (42.0-75.0); PLATELET COUNT 312 X10^3/uL (150.0-450.0); RED BLOOD COUNT 3.73 X10^6/uL (3.5-5.4); RED CELL DISTRIBUTION WIDTH 15.1 % (11.6-16.5); WHITE BLOOD COUNT 13.7 X10^3/uL (3.6-10.0)
[2019-10-09 06:25] LABS: ALBUMIN 2.8 g/dL (3.4-5.0); CALCIUM 7.3 mg/dL (8.5-10.1); CARBON DIOXIDE 24.6 mmol/L (21-32); CKMB % 0.5 % (<4); COR CA(FOR HYPOALB) 8.3 mg/dL (8.5-10.1); CREATININE 1.51 mg/dL (0.55-1.02); TOTAL PROTEIN 7.2 g/dL (6.4-8.2); TROPONIN I 0.04 ng/mL (0-1.5)
[2019-10-09 06:57] LABS: BAND NEUTROPHILS % 2 % (0-10); PLATELET MORPHOLOGY COMMENT NORMAL (NORMAL)
[2019-10-09] MEDS: CARDIZEM INJ 125 MG VIAL 125 MG in NS 100 ML IV 100 ML IV PRN (07:04)
[2019-10-09] MEDS ORDERED: MORPHINE SULFATE INJ 2 MG INJ IVP PRN (07:37)
[2019-10-09] MEDS ORDERED: MORPHINE SULFATE INJ 2 MG INJ ONE (07:38)
[2019-10-09 08:02] LABS: ABG BASE EXCESS 5.3 mmol/L (-2.0-2.0)
[2019-10-09 08:03] LABS: ABG ALLEN TEST POS; ABG HCO3 30.5 mmol/L (22-26)
[2019-10-09 08:35] LABS: CKMB % 0.7 % (<4); CREATINE KINASE MB 2.2 ng/mL (0-4.0); TROPONIN I 0.03 ng/mL (0-1.5)
[2019-10-09] MEDS: ZOFRAN INJ 4 MG VIAL IVP PRN ×2 (08:57→14:35)
[2019-10-09] MEDS ORDERED: VANCOMYCIN HCL 500 MG, VANCOMYCIN HCL 1 G in NS 250 ML IV 250 ML IV SCH (09:00)
[2019-10-09] MEDS ORDERED: PULMICORT NEB TX 0.5 MG NEB SCH (09:00)
[2019-10-09] MEDS ORDERED: LOVENOX INJ 100 MG SYR SC SCH (09:00)
[2019-10-09] MEDS ORDERED: PERCOCET TAB 5/325 MG PO PRN (11:25)
[2019-10-09] MEDS ORDERED: ELIQUIS PO SCH (11:30)
[2019-10-09] MEDS ORDERED: XOPENEX 1.25 MG/3 ML NEBULE NEB SCH (12:00)
[2019-10-09] MEDS ORDERED: LEVAQUIN PREMIX IV 500 MG 500 MG/100 ML BAG IV SCH (12:00)
[2019-10-09] MEDS ORDERED: LASIX IVP SCH (12:00)
--- NOTE | 2019-10-09 12:48 | DR.H&P ---
H&P - History & Physical for Day of: H&P Date: 10/08/19 - Chief Complaint Chief Complaint: CHEST PAIN, SOB - History of Present Illness History of Present Illness: Pt is 64 WF ER admission with co respiratory failure and distress, acute onset at home. Pt had ekg with a fib with rvr, has no known hx of afib. Pt had been on cardizem for treatment of "MVP" per Dr. Mcbride for several years, however pt had not seen him for check up in >2 years. Pt feels cp and sob, gasping for air. she is morbidly obese, hx of copd, HTN, resp failure, GERD, chronic pancreatitis. 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, Tonsillectomy - Family History Family Medical History: Diabetes Mellitus, Hypertension - Social History Does patient currently use any type of tobacco product: No Have you used tobacco products in the last 12 months: No Type of Tobacco Use: None Does any household member use tobacco: No Alcohol Use: None Drug Use: None - Medications Home Medications: ketorolac [From Toradol] Allergy (Verified 10/08/19 17:57) Penicillins Allergy (Verified 10/08/19 17:57) Sulfa (Sulfonamide Antibiotics) [SULFA] Allergy (Verified 10/08/19 17:57) BETA BLOCKERS Allergy (Uncoded 10/08/19 17:57) - Review of Systems Constitutional: Weakness Eyes: No Symptoms Reported ENT: No Symptoms Reported Respiratory: Shortness of Breath Cardiovascular: Chest Pain, Edema Gastrointestinal: Nausea, Vomiting Genitourinary: Incontinence Musculoskeletal: Back Pain, Leg Pain Skin: No Symptoms Reported Neurological: Weakness - Physical Exam Vital Signs: Temperature 99.0 F Pulse Rate [Right Brachial] 115 Pulse Rate 105 Respiratory Rate 51 Blood Pressure [Left Arm] 165/75 Blood Pressure [Right Arm] 156/67 Blood Pressure 122/64 O2 Sat by Pulse Oximetry 97 Oriented: Normal Eyes: Normal Ear: Normal Nose: Normal Throat: Normal Respiratory: Wheezes Throughout (MILD UPPER EXPIRTORY WHEEZES), RLL Diminished, LLL Diminished Cardiovascular: Tachycardia, Irregular, Edema : Normal Auscultation: Bowel Sounds: Normal Palpation: Other (DIFFUSE DISTENTION) Tenderness: Normal Skin: Decreased Turgur Musculoskeletal: Back:Thoracic, Back:Lumbar Psychiatric: Anxiety Affect: Anxious Speech Pattern: Clear, Appropriate - Assessment/Plan (1) Atrial fibrillation with RVR Status: Acute Plan: ADMIT, ICU CARDIZEM DRIP, CONTINUOUS CARDIAC MONITORING. BP CONTROL, SERI AL CE AND EKG. SUPPLEMENTAL O2, BIPAP PRN. RESP THERAPY FOR COPD, TODD CATH. STRICT I & OS, VERIFY HOME MEDICATION (2) CHF (congestive heart failure) Status: Acute (3) COPD (chronic obstructive pulmonary disease) Qualifiers: Status: Acute (4) Chest pain, rule out acute myocardial infarction Status: Acute (5) Pancreatic abnormality Status: Acute (6) DDD (degenerative disc disease), lumbosacral Status: Chronic (7) Essential hypertension Status: Chronic (8) DHARA (generalized anxiety disorder) Status: Chronic (9) GERD (gastroesophageal reflux disease) Qualifiers: Esophagitis presence: esophagitis presence not specified Qualified Code(s): K21.9 - Gastro-esophageal reflux disease without esophagitis Status: Chronic (10) History of cervical cancer Status: Chronic - Allergies Allergies/Adverse Reactions: Allergies Allergy/AdvReac Type Severity Reaction Status Date / Time ketorolac [From Toradol] Allergy Verified 10/08/19 17:57 Penicillins Allergy Verified 10/08/19 17:57 Sulfa (Sulfonamide Allergy Verified 10/08/19 17:57 Antibiotics) [SULFA] BETA BLOCKERS Allergy Uncoded 10/08/19 17:57
[2019-10-09] MEDS ORDERED: SOLU-Medrol 40 MG VIAL IVP SCH (14:00)
[2019-10-09 14:46] VITALS: BP 108/57
[2019-10-09] MEDS ORDERED: BROVANA IN SCH (21:00)
[2019-10-12] MEDS ORDERED: PHARMACY COMMENT IV NR (08:30)
== END 2019-10-09 15:15 | disposition short-term general hospital (02) | DRG 310 ==
LOC: ER 17:48 → ICU 21:13
PROVIDERS: ADMIT Internal Medicine; ATTEND Internal Medicine
DX: K21.9 Gastro-esophageal reflux disease without esophagitis; M51.37 Other intervertebral disc degeneration, lumbosacral region; E87.6 Hypokalemia; I50.9 Heart failure, unspecified; R94.31 Abnormal electrocardiogram [ECG] [EKG]; I11.0 Hypertensive heart disease with heart failure; J44.9 Chronic obstructive pulmonary disease, unspecified; I48.91 Unspecified atrial fibrillation; F41.8 Other specified anxiety disorders; E66.01 Morbid (severe) obesity due to excess calories; R07.89 Other chest pain; Z85.41 Personal history of malignant neoplasm of cervix uteri; R06.02 Shortness of breath
CPT/HCPCS: 36415; 36600; 51702; 71010; 71045; 80053; 82550; 82553; 82803; 83605; 83735; 83880; 84484; 85025; 87040; 93005; 94640; 94660; 94760; 96365; 96367; 96374; 96375; 99285; A4216; A4222; A4618; A7030; J1650; J1815; J1940; J1956; J2060; J2270; J2405; J2920; J2930; J3370; J3490; J7050; J7620; J7626

== ENCOUNTER 2020-01-31 12:10 | Inpatient (IN) ==
[2020-01-31 12:29] VITALS: BMI 62.1
--- NOTE | 2020-01-31 12:58 | DR.SOBA ---
HPI Time Seen Time Seen by Provider: 01/31/20 12:46 Primary Care Physician Primary Care Physician: usha bassett HPI Comment HPI Comment: PATIENT IS 65YR OLD FEMALE IN ER WITH INCREASING SOB AND CHEST PAIN. PATIENT HAVE HISTORY OF CHF.PATIENT HAVE ALSO BEING HAVING RAPID HEART RATE ALSO. SHE IS BED BOUND ALMOST. SHE IS RUNNING FEVER AT HOME. Complaints Chief Complaint Doctors Comments: SOB AND CHEST PAIN TIMES ONE DAY. Chief Complaint:: pt stated since yesterday she has been short of breath and when she takes a deep breath her chest hurts. stated she felt like her heart has been running away since this morning. she also stated she has been running fevers COVID-19 Coronavirus risk:travel/contact w/high risk person: No Has patient experienced Coronavirus symptoms: Yes Coronavirus symptoms experienced: Fever Reviewed Nurses Notes Reviewed: Yes Source History Provided: Patient and EMS Mode of Arrival Mode of Arrival: EMS Timing Onset of Chief Complaint: 01/30/20 Duration Duration: Days Context Onset:: At Rest PE Risk Factors:: Immobilization History of:: CHF Currently on:: Neither Prehospital Care:: None Modifying Factors Worsens:: Exertion Improves:: Sitting Up Associated Signs and Symptoms Associated Signs and Symptoms: Fever, Chest Pain and Leg Swelling If Chest Pain Quality: Pleuritic Location: Substernal If Cough Cough: Productive PMH PMH Past Medical History: Yes Past Medical History: Anemia, Anxiety, CHF, COPD, Coronary Artery Disease, Diabetes, Dyslipidemia, GERD, Hypertension and Renal Disease Past Surgical History: Yes Surgical History: Appendectomy, Bowel Resection, CABG/Valve Surgery, Cholecystectomy, LOCAL [employer] O[employer] 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 and Tonsillectomy Family History History of Family Medical Conditions: Yes Family Medical History: Diabetes Mellitus and Hypertension Social History Does patient currently use any type of tobacco product: No Have you used tobacco products in the last 12 months: No Type of Tobacco Use: None Does any household member use tobacco: No Alcohol Use: None Do you use any recreational Drugs:: No Lives With: Family Lives Where: Home Travel Risk Coronavirus risk:travel/contact w/high risk person: No Has patient experienced Coronavirus symptoms: Yes Coronavirus symptoms experienced: Fever Infectious screening In the last 2 months have you had wt loss of >10#?: NO Have you had fever, night sweats or hemotysis?: No Have you traveled outside the country in the last 6 months?: No Isolation: Droplet ROS Review of Systems Constitutional: See HPI, Fever, Weakness and Fatigue Eyes: No Symptoms Reported and See HPI; negative Blurred Vision and Diplopia ENTM: See HPI and Nose Congestion; negative Ear Pain, Nose Discharge and Throat Pain Respiratoy: See HPI, Non-Productive Cough, Short of Breath and Wheezing Cardiovascular: See HPI, Chest Pain, Edema and Palpitations Gastrointestinal/Abdominal: See HPI, Abdominal Pain, Nausea and Vomiting Genitourinary: No Symptoms Reported and See HPI; negative Dysuria Neurological: See HPI, Headache, Weakness and Dizziness Musculoskeletal: See HPI, Back Pain and Muscle Pain Integumentary: See HPI and Change in Color; negative Rash and Juandice Hematologic/Lymphatic: See HPI and Easy Bruising; negative Swollen Glands Endocrine: No Symptoms Reported and See HPI; negative Increased Thirst and Increased Urine Psychiatric: No Symptoms Reported and See HPI All Other Systems: Reviewed and Negative PE Vital Signs Vitals: Temperature 98.7 F Pulse Rate 135 Respiratory Rate 26 Blood Pressure [Left Arm] 116/55 Blood Pressure [Right Arm] 156/67 Blood Pressure 131/72 O2 Sat by Pulse Oximetry 97 General Limitations: No Limitations General Appearance: Alert and In Distress Head Head Exam: Normal Inspection and Atraumatic Eyes Eye exam: Normal Appearance and PERRL; negative Scleral Icterus and Conjunctival Injection ENT ENT Exam: Normal Exam, Normal Oropharynx, Normal External Ear Exam and TM's Nor mal Bilaterally Neck Neck Exam: Normal Inspection and Trachea Midline; negative Tenderness and Lymphadenopathy Chest Chest Inspection: Normal Inspection and Symmetric Chest Wall Rise; negative Tenderness Respiratory Respiratory Exam: Respiratory Distress; negative Accessory Muscle Use and Chest Wall Tenderness Respiratory Exam: Bilateral: Wheezing and Bilateral: Rhonchi and Lower: Wheezing and Lower: Rhonchi Cardiovascular Cardiovascular Exam: Normal Rhythm, Tachycardia and +S3 Abdominal Exam Abdominal Exam: Normal Inspection, Normal Bowel Sounds, Soft and Tenderness Abdominal Tenderness: Diffuse and Mild Extremities Extremities Exam: Normal Inspection and Edema Back Back Exam: Tenderness and Paraspinal Tenderness Neurologic Neurological Exam: Alert and Oriented X3; negative Motor Sensory Deficit Psychiatric Psychiatric Exam: Normal Affect and Anxious Skin Skin Exam: Erythema; negative Normal Color and Rash MDM Additional Information Obtained Additional Information Obtained From: Old Records Differential Diagnosis Differential Diagnosis: Bronchitis, CHF, Dysrhythmia, Hyponatremia, Mycardial Infarction, Pneumonia, Pneumothorax, Respiratory Insufficiency and URI COURSE Treatment Treatment: SEE ORDERS. DEMOROL 50MG IM, PHENERGAN 25MG IM, LASIX 40MG IV AND XANAX 0.5MG PO AND ZOFRAN 4MG IV IN ER. Reevaluation 1st: Improved (SOB IMPROVING.) Education/Counseling Education/Counseling: Patient Educated On: Diagnosis ROR Labs Reviewed Laboratory Results Reviewed?: Yes Result Diagrams: 02/02/20 11:43 02/02/20 05:32 Laboratory: WBC 15.0 X10^3/uL (3.6-10.0) H 01/31/20 12:25 RBC 2.07 X10^6/uL (3.5-5.4) L 01/31/20 12:25 Hgb 5.5 g/dL (12.0-16.0) L* 01/31/20 12:25 Hct 17.6 % (36.0-47.0) L* 01/31/20 12:25 MCV 85.1 fL (80.0-100.0) 01/31/20 12:25 MCH 26.6 pg (27.0-34.0) L 01/31/20 12:25 MCHC 31.3 g/dL (33.0-35.0) L 01/31/20 12:25 RDW 29.0 % (11.6-16.5) H 01/31/20 12:25 Plt Count 774 X10^3/uL (150.0-450.0) H 01/31/20 12:25 Plt Count Comment Increased (ADEQUATE) A 01/31/20 12:25 MPV 7.8 fL (7.4-11.0) 01/31/20 12:25 Neut % (Auto) 73.3 % (42.0-75.0) 01/31/20 12:25 Lymph % (Auto) 11.7 % (21.0-51.0) L 01/31/20 12:25 [facility] % (Auto) 10.2 % (0.0-13.0) 01/31/20 12:25 Eos % (Auto) 3.1 % (0.9-2.9) H 01/31/20 12:25 Baso % (Auto) 1.7 % (0.2-1.0) H 01/31/20 12:25 Neut # (Auto) 11.0 x10^3/uL (2.2-4.8) H 01/31/20 12:25 Lymph # (Auto) 1.8 X10^3/uL (1.3-2.9) 01/31/20 12:25 [facility] # (Auto) 1.5 x10^3/uL (0.3-0.8) H 01/31/20 12:25 Eos # (Auto) 0.5 x10^3/uL (0.0-0.2) H 01/31/20 12:25 Baso # (Auto) 0.3 X10^3/uL (0.0-0.1) H 01/31/20 12:25 Absolute Nucleated RBC 0.5 /100WBC 01/31/20 12:25 Total Counted 100 01/31/20 12:25 Neutrophils % (Manual) 77 % (39-76) H 01/31/20 12:25 Band Neutrophils % 3 % (0-10) 01/31/20 12:25 Lymphocytes % (Manual) 7 % (13-43) L 01/31/20 12:25 Monocytes % (Manual) 11 % (4-9) H 01/31/20 12:25 Eosinophils % (Manual) 2 % (0-6) 01/31/20 12:25 Giant Platelets Few 01/31/20 12:25 Plt Morphology Comment Abnormal (NORMAL) A 01/31/20 12:25 RBC Morphology Abnormal (NORMAL) A 01/31/20 12:25 Hypochromasia Slight A 01/31/20 12:25 Anisocytosis 3+ A 01/31/20 12:25 Sample Site Lbra 01/31/20 13:20 ABG pH 7.480 (7.35-7.45) H 01/31/20 13:20 ABG pCO2 37.0 mmHg (35.0-45.0) 01/31/20 13:20 ABG pO2 55.0 mmHg (80.0-100.0) L 01/31/20 13:20 ABG HCO3 27.6 mmol/L (22-26) H 01/31/20 13:20 ABG O2 Saturation 90.0 % (90-100) 01/31/20 13:20 ABG Base Excess 4.0 mmol/L (-2.0-2.0) H 01/31/20 13:20 Sameer Test N/a 01/31/20 13:20 A-a Gradient 127.0 mmHg 01/31/20 13:20 FiO2 32.0 01/31/20 13:20 Blood Gas Comments Pt baltazar well elj cdn 01/31/20 13:20 Sodium 140 mmol/L (136-145) 01/31/20 12:25 Corrected Sodium 141 mmol/L (136-145) 01/31/20 12:25 Potassium 3.6 mmol/L (3.5-5.1) 01/31/20 12:25 Chloride 99 mmol/L (98-107) 01/31/20 12:25 Carbon Dioxide 25.3 mmol/L (21-32) 01/31/20 12:25 BUN 17 mg/dL (7-18) 01/31/20 12:25 Creatinine 1.67 mg/dL (0.55-1.02) H 01/31/20 12:25 Est GFR (MDRD) Af Amer 39 (>60) L 01/31/20 12:25 Est GFR (MDRD) Non-Af 33 (>60) L 01/31/20 12:25 Glucose 121 mg/dL (65-99) H 01/31/20 12:25 Calcium 7.9 mg/dL (8.5-10.1) L 01/31/20 12:25 Corrected Calcium 9.5 mg/dL (8.5-10.1) 01/31/20 12:25 Total Bilirubin 0.60 mg/dL (0.2-1.0) 01/31/20 12:25 AST 60 Units/L (15-37) H 01/31/20 12:25 ALT 10 Units/L (12-78) L 01/31/20 12:25 Alkaline Phosphatase 365 Units/L (46-116) H 01/31/20 12:25 Creatine Kinase 24 Units/L (26-192) L 01/31/20 12:25 CK-MB (CK-2) < 1.0 ng/mL (0-4.0) 01/31/20 12:25 CK/CKMB % Calc 4.2 % (<4) 01/31/20 12:25 Troponin I < 0.02 ng/mL (0-1.5) 01/31/20 12:25 Total Protein 6.7 g/dL (6.4-8.2) 01/31/20 12:25 Albumin 2.0 g/dL (3.4-5.0) L 01/31/20 12:25 Globulin 4.7 g/dL (2.5-4.5) H 01/31/20 12:25 Albumin/Globulin Ratio 0.4 Ratio (1.1-2.1) L 01/31/20 12:25 Amylase 29 Units/L (25-115) 01/31/20 12:25 Lipase 47 Units/L (73-393) L 01/31/20 12:25 Blood Type O POSITIVE 01/31/20 14:07 Antibody Screen Negative 01/31/20 14:07 Crossmatch See Detail 01/31/20 14:07 XRAY XRAY Interpreted by: Radiologist (REPORT NOTED AND DISCUSSED WITH PATIENT.) and Self (CHF.) EKG Rate: 15 [place]: Normal Rhythm: ST and PVCs Block: None Hypertrophy: None ST: Ant, Lat and Ischemia Opioid Opioid Risk Tool Age (Jann box if 16-45): No History of Preadolescent Sexual Abuse: No Total: 0 Total Score Risk Category: Low Risk Copyright: [facility] predicting aberrant behaviors Diagnosis Discharge Problem: SOB (shortness of breath) Anemia Qualifiers: Anemia type: unspecified type Qualified Code(s): D64.9 - Anemia, unspecified Chest pain Qualifiers: Chest pain type: precordial pain Qualified Code(s): R07.2 - Precordial pain CHF (congestive heart failure) Qualifiers: Heart failure type: combined systolic and diastolic Heart failure chronicity: acute on chronic Qualified Code(s): I50.43 - Acute on chronic combined systolic (congestive) and diastolic (congestive) heart failure Instructions Forms: Excuse From Work Precautions for COVID19 Patient Portal Social Distancing
[2020-01-31] MEDS ORDERED: DEMEROL INJ IM ONE (13:08)
[2020-01-31] MEDS ORDERED: PHENERGAN INJ 25 MG IM ONE ×2 (13:08→13:35)
[2020-01-31 13:13] LABS: BASOPHILS # (AUTO) 0.3 X10^3/uL (0.0-0.1); BASOPHILS % (AUTO) 1.7 % (0.2-1.0); EOSINOPHILS # (AUTO) 0.5 x10^3/uL (0.0-0.2); EOSINOPHILS % (AUTO) 3.1 % (0.9-2.9); LYMPHOCYTES # (AUTO) 1.8 X10^3/uL (1.3-2.9); LYMPHOCYTES % (AUTO) 11.7 % (21.0-51.0); MEAN CORPUSCULAR HEMOGLOBIN 26.6 pg (27.0-34.0); MEAN CORPUSCULAR HGB CONC 31.3 g/dL (33.0-35.0); MEAN CORPUSCULAR VOLUME 85.1 fL (80.0-100.0); MEAN PLATELET VOLUME 7.8 fL (7.4-11.0); MONOCYTES # (AUTO) 1.5 x10^3/uL (0.3-0.8); MONOCYTES % (AUTO) 10.2 % (0.0-13.0); NEUTROPHILS % (AUTO) 73.3 % (42.0-75.0); PLATELET COUNT 774 X10^3/uL (150.0-450.0); RED BLOOD COUNT 2.07 X10^6/uL (3.5-5.4)
[2020-01-31 13:23] LABS: HEMATOCRIT 17.6 % (36.0-47.0); HEMOGLOBIN 5.5 g/dL (12.0-16.0)
[2020-01-31 13:25] LABS: BLOOD UREA NITROGEN 17 mg/dL (7-18); CALCIUM 7.9 mg/dL (8.5-10.1); CARBON DIOXIDE 25.3 mmol/L (21-32); CHLORIDE 99 mmol/L (98-107); COR NA(FOR HYPERGLY) 141 mmol/L (136-145); CREATININE 1.67 mg/dL (0.55-1.02); SODIUM 140 mmol/L (136-145); TROPONIN I < 0.02 ng/mL (0-1.5); eGFR NON BLACK RACES 33 (>60)
[2020-01-31 13:29] LABS: ALANINE AMINOTRANSFERASE 10 Units/L (12-78); ALKALINE PHOSPHATASE 365 Units/L (46-116); AMYLASE 29 Units/L (25-115); ASPARTATE AMINO TRANSFERASE 60 Units/L (15-37); CKMB % 4.2 % (<4); COR CA(FOR HYPOALB) 9.5 mg/dL (8.5-10.1); CREATINE KINASE 24 Units/L (26-192); CREATINE KINASE MB < 1.0 ng/mL (0-4.0); LIPASE 47 Units/L (73-393); TOTAL PROTEIN 6.7 g/dL (6.4-8.2)
[2020-01-31 13:30] LABS: ABG HCO3 27.6 mmol/L (22-26)
[2020-01-31] MEDS ORDERED: DEMEROL INJ ONE (13:35)
[2020-01-31 13:36] LABS: BAND NEUTROPHILS % 3 % (0-10)
[2020-01-31 13:38] LABS: ANISOCYTOSIS 3+; GIANT PLATELET FEW; HYPOCHROMASIA SLIGHT; PLATELET MORPHOLOGY COMMENT ABNORMAL (NORMAL)
--- NOTE | 2020-01-31 14:48 | RAD ---
HISTORYsob TIA, CAD, CHF, ANGINA, HTN, COPD, EMPHYSEMA, RENAL DISEASE, DIABETES, CERVICAL CANCER, COLON RESECTION, APPENDECTOMY, CABG, CHOLECYSECTOMY, TONSILLECTOMY, HYSTERECTOMYSTUDYCHEST, 1 VIEWCOMPARISONJune 2019.FINDINGS[Right subclavian chest port catheter tip at the caval atrial junction unchanged.][The lungs are clear.][There is persistent prominence of the vascular pedicle. There is no cardiomegaly. There is perihilar haziness and vascular congestion similar to prior exam.][There is no pleural effusion or pneumothorax.][The bony thorax is normally intact.]IMPRESSIONNo interval change. Question mild failure/fluid overload.Electronically signed by: CONTRERAS VACA (Jan 31, 2020 14:46:31)
[2020-01-31] MEDS ORDERED: XANAX PO ONE (14:57)
[2020-01-31] MEDS ORDERED: XANAX ONE (14:58)
[2020-01-31] MEDS ORDERED: LASIX IVP ONE ×2 (15:15→15:56)
[2020-01-31] MEDS ORDERED: ZOFRAN INJ 4 MG VIAL ONE (16:03)
[2020-01-31] MEDS: ZOFRAN INJ 4 MG VIAL IVP PRN (16:04)
[2020-01-31] MEDS ORDERED: VENTOLIN or PROAIR HFA ONE (16:37)
[2020-01-31] MEDS: PROTONIX INJ 40 MG VIAL 80 MG in NS 100 ML IV 80 ML IV SCH (16:47)
[2020-01-31 16:52] LABS: BILIRUBIN,URINE NEGATIVE (NEGATIVE); BLOOD/HEMOGLOBIN,URINE NEGATIVE (NEGATIVE); GLUCOSE, URINE NEGATIVE (NEGATIVE); KETONES,URINE NEGATIVE (NEGATIVE); LEUKOCYTE ESTERASE ,URINE NEGATIVE (NEGATIVE); NITRITES,URINE NEGATIVE (NEGATIVE); PROTEIN,URINE 1+ (NEGATIVE); UROBILINOGEN,URINE NORMAL (NORMAL)
[2020-01-31 16:59] LABS: APPEARANCE,URINE CLEAR (CLEAR); COLOR,URINE YELLOW (YELLOW); RBC,URINE 0-2 /HPF (0-3)
[2020-01-31 17:00] LABS: BACTERIA,URINE TRACE /HPF (NEGATIVE); MUCUS,URINE RARE /HPF (NEGATIVE); SQUAMOUS EPITHELIAL CELL,UR RARE /HPF (NEGATIVE)
[2020-01-31] MEDS ORDERED: NS 500 ML IV 500 ML IV ONE ×2 (17:34→23:53)
[2020-01-31 18:26] LABS: CKMB % 3.9 % (<4); CREATINE KINASE 26 Units/L (26-192); CREATINE KINASE MB < 1.0 ng/mL (0-4.0); TROPONIN I < 0.02 ng/mL (0-1.5)
[2020-01-31] MEDS: XANAX PO PRN (21:10)
[2020-01-31] MEDS: VENTOLIN or PROAIR HFA IN PRN (21:22)
[2020-02-01 00:12] LABS: CKMB % 3.6 % (<4); CREATINE KINASE 28 Units/L (26-192); CREATINE KINASE MB < 1.0 ng/mL (0-4.0); TROPONIN I < 0.02 ng/mL (0-1.5)
[2020-02-01] MEDS ORDERED: PERCOCET TAB 5/325 MG PO ONE ×2 (02:06→22:10)
[2020-02-01] MEDS ORDERED: PERCOCET TAB 5/325 MG ONE (02:08)
[2020-02-01] MEDS: VENTOLIN or PROAIR HFA IN PRN ×2 (04:00→09:28)
[2020-02-01 06:11] LABS: BASOPHILS # (AUTO) 0.2 X10^3/uL (0.0-0.1); BASOPHILS % (AUTO) 1.8 % (0.2-1.0); EOSINOPHILS # (AUTO) 0.2 x10^3/uL (0.0-0.2); EOSINOPHILS % (AUTO) 2.2 % (0.9-2.9); HEMATOCRIT 21.7 % (36.0-47.0); HEMOGLOBIN 7.3 g/dL (12.0-16.0); LYMPHOCYTES # (AUTO) 1.4 X10^3/uL (1.3-2.9); LYMPHOCYTES % (AUTO) 12.9 % (21.0-51.0); MEAN CORPUSCULAR HEMOGLOBIN 28.4 pg (27.0-34.0); MEAN CORPUSCULAR HGB CONC 33.6 g/dL (33.0-35.0); MEAN CORPUSCULAR VOLUME 84.8 fL (80.0-100.0); MEAN PLATELET VOLUME 7.7 fL (7.4-11.0); MONOCYTES % (AUTO) 9.3 % (0.0-13.0); NEUTROPHILS % (AUTO) 73.8 % (42.0-75.0); PLATELET COUNT 554 X10^3/uL (150.0-450.0); RED BLOOD COUNT 2.56 X10^6/uL (3.5-5.4); RED CELL DISTRIBUTION WIDTH 21.4 % (11.6-16.5); WHITE BLOOD COUNT 10.8 X10^3/uL (3.6-10.0)
[2020-02-01 06:36] LABS: ALANINE AMINOTRANSFERASE 11 Units/L (12-78); ALBUMIN 1.9 g/dL (3.4-5.0); ALKALINE PHOSPHATASE 337 Units/L (46-116); ASPARTATE AMINO TRANSFERASE 61 Units/L (15-37); BLOOD UREA NITROGEN 16 mg/dL (7-18); CALCIUM 7.6 mg/dL (8.5-10.1); CARBON DIOXIDE 27.7 mmol/L (21-32); CHLORIDE 98 mmol/L (98-107); COR CA(FOR HYPOALB) 9.3 mg/dL (8.5-10.1); CREATININE 1.21 mg/dL (0.55-1.02); SODIUM 137 mmol/L (136-145); TOTAL PROTEIN 6.3 g/dL (6.4-8.2); eGFR NON BLACK RACES 47 (>60)
[2020-02-01 07:02] LABS: ANISOCYTOSIS 1+; HYPOCHROMASIA 1+; PLATELET MORPHOLOGY COMMENT NORMAL (NORMAL)
[2020-02-01] MEDS: XANAX PO PRN ×3 (07:48→20:57)
[2020-02-01] MEDS: PROTONIX INJ 40 MG VIAL 80 MG in NS 100 ML IV 80 ML IV SCH ×4 (10:38→23:59)
[2020-02-01] MEDS: ZOFRAN INJ 4 MG VIAL IVP PRN ×2 (11:22→17:38)
[2020-02-01] MEDS ORDERED: K-DUR TAB 20 MEQ PO PRN (11:27)
[2020-02-01] MEDS ORDERED: KLOR-CON PO PRN (11:27)
[2020-02-01] MEDS ORDERED: MICRO K EXTEN CAP 10 MEQ PO PRN (11:27)
[2020-02-01] MEDS ORDERED: POTASSIUM CHLORIDE LIQ 20 MEQ UDC PO PRN (11:27)
[2020-02-01] MEDS ORDERED: POTASSIUM CHL 60 MEQ/NS 0.45% 500 ML IV PRN (11:27)
[2020-02-01] MEDS ORDERED: MAGNESIUM SULFATE 1 GRAM/100 mL PREMIX 1 GM/100 ML BAG IV PRN (11:27)
[2020-02-01] MEDS ORDERED: POTASSIUM CHL 40 MEQ/NS 0.45% 500 ML IV PRN (11:27)
[2020-02-01] MEDS: SYNTHROID 25 mcg TAB PO SCH (12:57)
[2020-02-01] MEDS: PAXIL PO SCH (12:57)
[2020-02-01] MEDS ORDERED: NS 250 ML IV 250 ML IV PRN (14:08)
[2020-02-01] MEDS ORDERED: K-RIDER 10 MEQ/NS 100 ML 10 MEQ/100 ML BAG IV ONE ×2 (14:12→21:51)
[2020-02-01] MEDS ORDERED: NS 250 ML IV 250 ML IV ONE (14:12)
[2020-02-01] MEDS: K-RIDER 10 MEQ/NS 100 ML 10 MEQ/100 ML BAG IV PRN ×2 (14:25→21:53)
[2020-02-01] MEDS ORDERED: PHENERGAN INJ 25 MG IM ONE (16:03)
[2020-02-01] MEDS: MAG-OX TAB PO SCH (16:25)
--- NOTE | 2020-02-01 17:48 | DR.H&P ---
H&P - History & Physical for Day of: H&P Date: 01/31/20 - Chief Complaint Chief Complaint: CHEST PAIN AND SOB - History of Present Illness History of Present Illness: pt is 65 WF ER admission with co stated since yesterday she has been short of breath and when she takes a deep breath her chest hurts. stated she felt like her heart has been running away since this morning. she also stated she has been running fevers. pt had PMH of chronic resp failure, CHF, HTN, OA, DHARA, O2 dependent, chronic pancreatitis and COPD. pt is home bound, denies known covid 19 exposure. Pt was tested on admission due to covid 19 symptoms on admission. 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, Tonsillectomy - Family History Family Medical History: Diabetes Mellitus, Hypertension - Social History Does patient currently use any type of tobacco product: No Have you used tobacco products in the last 12 months: No Type of Tobacco Use: None Does any household member use tobacco: No Alcohol Use: None Drug Use: None - Medications Home Medications: ketorolac [From Toradol] Allergy (Verified 10/13/19 23:16) Penicillins Allergy (Verified 10/13/19 23:16) Sulfa (Sulfonamide Antibiotics) [SULFA] Allergy (Verified 10/13/19 23:16) BETA BLOCKERS Allergy (Uncoded 10/08/19 17:57) CONTINUE taking the following medications linaclotide [Linzess] 145 mcg PO DAILY 02/01/20 [History] nystatin 1 applic TOPICAL BID 02/01/20 [History] ondansetron HCl 8 mg PO Q8H 02/01/20 [History] paroxetine HCl 20 mg PO DAILY 02/01/20 [History] triamcinolone acetonide 1 applic TOPICAL BID 02/01/20 [History] - Review of Systems Constitutional: Weakness Eyes: No Symptoms Reported ENT: No Symptoms Reported Respiratory: See HPI, Shortness of Breath Cardiovascular: Chest Pain, Edema Gastrointestinal: Nausea Genitourinary: No Symptoms Reported Musculoskeletal: Back Pain Skin: No Symptoms Reported Neurological: Weakness - Physical Exam Vital Signs: Temperature 97.5 F Pulse Rate [Apical] 114 Pulse Rate 133 Respiratory Rate 26 Blood Pressure [Left Arm] 105/56 Blood Pressure [Right Arm] 156/67 Blood Pressure 144/63 O2 Sat by Pulse Oximetry 91 Oriented: Normal Eyes: Normal Ear: Normal Nose: Normal Throat: Normal Respiratory: Diminished Throughout, Wheezes Throughout Cardiovascular: Tachycardia, Edema Auscultation: Bowel Sounds: Normal Palpation: Normal Tenderness: Diffuse, Mild Skin: Decreased [place], Bruising Musculoskeletal: Leg, Back:Thoracic, Back:Lumbar, Swelling, Tender Psychiatric: Agitation Affect: Anxious Speech Pattern: Clear, Appropriate - Assessment/Plan (1) Acute respiratory distress Status: Acute Plan: ADMIT ABG ON ADMISSION. COVID 19 SWAB, CE, RESP THERAPY. SUPPLEMENTAL O2, IV ATBX. TYPE AND SCREEN, ANEMIA PANEL. OCCULT STOOL, TODD FOR STRICT I & OS\CONTINUOUS BP CONTROL. TELEMETRY, VERIFY HOME MEDICATIONS (2) SOB (shortness of breath) Status: Acute (3) Anemia Qualifiers: Anemia type: unspecified type Qualified Code(s): D64.9 - Anemia, unspecified Status: Acute (4) CHF (congestive heart failure) Qualifiers: Heart failure type: combined systolic and diastolic Heart failure chronicity: acute on chronic Qualified Code(s): I50.43 - Acute on chronic combined systolic (congestive) and diastolic (congestive) heart failure Status: Acute (5) Chest pain Qualifiers: Chest pain type: precordial pain Qualified Code(s): R07.2 - Precordial pain Status: Acute (6) COPD exacerbation Status: Acute (7) Chronic pancreatitis Status: Acute - Allergies Allergies/Adverse Reactions: Allergies Allergy/AdvReac Type Severity Reaction Status Date / Time ketorolac [From Toradol] Allergy Verified 10/13/19 23:16 Penicillins Allergy Verified 10/13/19 23:16 Sulfa (Sulfonamide Allergy Verified 10/13/19 23:16 Antibiotics) [SULFA] BETA BLOCKERS Allergy Uncoded 10/08/19 17:57
[2020-02-01] MEDS: DUONEB 0.5 MG/3 MG (3 mL) NEB SCH (17:50)
[2020-02-01] MEDS ORDERED: LASIX IVP ONE (17:51)
[2020-02-01 19:49] LABS: BASOPHILS # (AUTO) 0.2 X10^3/uL (0.0-0.1); BASOPHILS % (AUTO) 1.3 % (0.2-1.0); EOSINOPHILS # (AUTO) 0.2 x10^3/uL (0.0-0.2); EOSINOPHILS % (AUTO) 1.5 % (0.9-2.9); HEMATOCRIT 24.3 % (36.0-47.0); LYMPHOCYTES # (AUTO) 1.1 X10^3/uL (1.3-2.9); LYMPHOCYTES % (AUTO) 8.1 % (21.0-51.0); MEAN CORPUSCULAR HEMOGLOBIN 28.3 pg (27.0-34.0); MEAN CORPUSCULAR VOLUME 85.7 fL (80.0-100.0); MEAN PLATELET VOLUME 8.4 fL (7.4-11.0); MONOCYTES # (AUTO) 1.2 x10^3/uL (0.3-0.8); NEUTROPHILS # (AUTO) 10.8 x10^3/uL (2.2-4.8); NEUTROPHILS % (AUTO) 80.1 % (42.0-75.0); PLATELET COUNT 586 X10^3/uL (150.0-450.0); RED BLOOD COUNT 2.84 X10^6/uL (3.5-5.4); RED CELL DISTRIBUTION WIDTH 22.2 % (11.6-16.5); WHITE BLOOD COUNT 13.5 X10^3/uL (3.6-10.0)
[2020-02-01 19:53] LABS: ANISOCYTOSIS 2+; HYPOCHROMASIA SLIGHT; PLATELET MORPHOLOGY COMMENT NORMAL (NORMAL)
[2020-02-01] MEDS ORDERED: BUTT CREAM (COMPOUND) TOP PRN (20:04)
[2020-02-01] MEDS: PULMICORT NEB TX 0.5 MG NEB SCH (20:25)
[2020-02-01] MEDS: REQUIP PO SCH (20:57)
[2020-02-01] MEDS: CARDIZEM ER 60 MG 12-HR PO SCH (20:57)
[2020-02-02] MEDS: DUONEB 0.5 MG/3 MG (3 mL) NEB SCH ×4 (00:40→17:37)
[2020-02-02] MEDS: K-RIDER 10 MEQ/NS 100 ML 10 MEQ/100 ML BAG IV PRN (05:05)
--- NOTE | 2020-02-02 05:19 | RAD ---
HISTORYCHFSTUDYCHEST, 1 [id number]/21/2020FINDINGSThe trachea is midline. Right Port-A-Cath unchanged with tip in distal SVC. The cardiac silhouette is stable. The lungs are clear of acute consolidation. Perihilar haziness and vascular congestion similar to prior study. No pleural effusion or pneumothorax.. The bony thorax is unremarkable.IMPRESSIONStable radiographic appearance of the heart and lungsSuspect mild failure/fluid overloadElectronically signed by: Truman Michel (Feb 02, 2020 05:18:14)
[2020-02-02] MEDS: XANAX PO PRN ×2 (05:55→20:14)
[2020-02-02] MEDS: MAG-OX TAB PO SCH ×2 (06:00→17:06)
[2020-02-02 06:06] LABS: BASOPHILS # (AUTO) 0.1 X10^3/uL (0.0-0.1); BASOPHILS % (AUTO) 1.2 % (0.2-1.0); EOSINOPHILS # (AUTO) 0.2 x10^3/uL (0.0-0.2); EOSINOPHILS % (AUTO) 1.9 % (0.9-2.9); HEMATOCRIT 20.7 % (36.0-47.0); LYMPHOCYTES # (AUTO) 1.3 X10^3/uL (1.3-2.9); LYMPHOCYTES % (AUTO) 13.3 % (21.0-51.0); MEAN CORPUSCULAR HEMOGLOBIN 28.5 pg (27.0-34.0); MEAN CORPUSCULAR HGB CONC 33.7 g/dL (33.0-35.0); MEAN CORPUSCULAR VOLUME 84.6 fL (80.0-100.0); MEAN PLATELET VOLUME 7.6 fL (7.4-11.0); MONOCYTES # (AUTO) 0.9 x10^3/uL (0.3-0.8); MONOCYTES % (AUTO) 9.4 % (0.0-13.0); NEUTROPHILS # (AUTO) 7.1 x10^3/uL (2.2-4.8); NEUTROPHILS % (AUTO) 74.2 % (42.0-75.0); PLATELET COUNT 474 X10^3/uL (150.0-450.0); RED BLOOD COUNT 2.45 X10^6/uL (3.5-5.4); RED CELL DISTRIBUTION WIDTH 21.5 % (11.6-16.5); WHITE BLOOD COUNT 9.6 X10^3/uL (3.6-10.0)
[2020-02-02 06:14] LABS: ALANINE AMINOTRANSFERASE < 6 Units/L (12-78); ALBUMIN 1.8 g/dL (3.4-5.0); ALKALINE PHOSPHATASE 303 Units/L (46-116); ASPARTATE AMINO TRANSFERASE 50 Units/L (15-37); BLOOD UREA NITROGEN 15 mg/dL (7-18); CALCIUM 7.8 mg/dL (8.5-10.1); CARBON DIOXIDE 28.5 mmol/L (21-32); CHLORIDE 97 mmol/L (98-107); COR CA(FOR HYPOALB) 9.6 mg/dL (8.5-10.1); CREATININE 1.19 mg/dL (0.55-1.02); MAGNESIUM 1.5 mg/dL (1.7-2.9); SODIUM 137 mmol/L (136-145); TOTAL PROTEIN 6.1 g/dL (6.4-8.2); eGFR NON BLACK RACES 48 (>60)
[2020-02-02 06:49] LABS: ANISOCYTOSIS 1+; HYPOCHROMASIA SLIGHT; PLATELET MORPHOLOGY COMMENT NORMAL (NORMAL)
[2020-02-02] MEDS: PAXIL PO SCH (08:56)
[2020-02-02] MEDS: PROTONIX INJ 40 MG VIAL 80 MG in NS 100 ML IV 80 ML IV SCH ×2 (08:56→18:17)
[2020-02-02] MEDS: SYNTHROID 25 mcg TAB PO SCH (08:56)
[2020-02-02] MEDS: CARDIZEM ER 60 MG 12-HR PO SCH ×2 (08:56→20:14)
[2020-02-02] MEDS: MICRO K EXTEN CAP 10 MEQ PO SCH ×4 (09:02→20:16)
[2020-02-02] MEDS ORDERED: LASIX ONE (09:04)
[2020-02-02] MEDS: LASIX IVP SCH ×2 (09:08→17:12)
[2020-02-02] MEDS ORDERED: MORPHINE SULFATE INJ 2 MG INJ IVP ONE (09:13)
[2020-02-02] MEDS ORDERED: MICRO K EXTEN CAP 10 MEQ PO ONE (09:21)
[2020-02-02] MEDS ORDERED: VISTARIL PO ONE (09:22)
[2020-02-02] MEDS ORDERED: MORPHINE SULFATE INJ 2 MG INJ ONE (09:22)
[2020-02-02] MEDS: VISTARIL PO PRN ×2 (09:27→19:35)
[2020-02-02] MEDS: PERCOCET TAB 5/325 MG PO SCH ×3 (09:41→20:15)
[2020-02-02] MEDS: ZOFRAN INJ 4 MG VIAL IVP PRN ×2 (10:41→20:14)
[2020-02-02] MEDS: PULMICORT NEB TX 0.5 MG NEB SCH (10:54)
[2020-02-02 11:59] LABS: BASOPHILS # (AUTO) 0.2 X10^3/uL (0.0-0.1); BASOPHILS % (AUTO) 1.3 % (0.2-1.0); EOSINOPHILS # (AUTO) 0.2 x10^3/uL (0.0-0.2); EOSINOPHILS % (AUTO) 1.6 % (0.9-2.9); HEMATOCRIT 23.7 % (36.0-47.0); HEMOGLOBIN 7.7 g/dL (12.0-16.0); LYMPHOCYTES % (AUTO) 7.6 % (21.0-51.0); MEAN CORPUSCULAR HEMOGLOBIN 27.6 pg (27.0-34.0); MEAN CORPUSCULAR HGB CONC 32.7 g/dL (33.0-35.0); MEAN CORPUSCULAR VOLUME 84.5 fL (80.0-100.0); MEAN PLATELET VOLUME 7.8 fL (7.4-11.0); MONOCYTES # (AUTO) 1.4 x10^3/uL (0.3-0.8); MONOCYTES % (AUTO) 10.6 % (0.0-13.0); NEUTROPHILS # (AUTO) 10.3 x10^3/uL (2.2-4.8); NEUTROPHILS % (AUTO) 78.9 % (42.0-75.0); PLATELET COUNT 530 X10^3/uL (150.0-450.0); RED BLOOD COUNT 2.81 X10^6/uL (3.5-5.4); WHITE BLOOD COUNT 13.1 X10^3/uL (3.6-10.0)
[2020-02-02] MEDS ORDERED: PHENERGAN INJ 25 MG IM ONE (14:03)
[2020-02-02] MEDS: PHENERGAN INJ 25 MG IM PRN (14:06)
--- NOTE | 2020-02-02 14:29 | RAD ---
HISTORYN/V/ABD PAIN TIA, CAD, CHF, ANGINA, HTN, COPD, EMPHYSEMA, RENAL DISEASE, DIABETES, CERVICAL CANCER, COLON RESECTION, APPENDECTOMY, CABG, CHOLECYSECTOMY, TONSILLECTOMY, [id number]/14/2020 KUBFINDINGSMild left basilar atelectasis versus infiltrates. Nonspecific bowel gas pattern without significant air distension of bowel loops or abnormal air-fluid level. Evidence of prior cholecystectomy. Multilevel spondylosis. Mild DJD of the bilateral hips. Bones appear osteopenic.IMPRESSIONNonspecific bowel gas pattern.Electronically signed by: Bijal Dooley (Feb 02, 2020 14:28:12)
[2020-02-02] MEDS: REQUIP PO SCH (20:14)
[2020-02-03] MEDS: PHENERGAN INJ 25 MG IM PRN ×3 (00:19→16:58)
[2020-02-03] MEDS: PERCOCET TAB 5/325 MG PO SCH ×4 (03:23→20:54)
[2020-02-03] MEDS: PROTONIX INJ 40 MG VIAL 80 MG in NS 100 ML IV 80 ML IV SCH ×2 (04:08→16:32)
[2020-02-03] MEDS: VISTARIL PO PRN (05:01)
[2020-02-03] MEDS: ZOFRAN INJ 4 MG VIAL IVP PRN ×3 (05:01→21:46)
[2020-02-03 06:05] LABS: CALCIUM 8.1 mg/dL (8.5-10.1); CARBON DIOXIDE 29.6 mmol/L (21-32); COR CA(FOR HYPOALB) 9.7 mg/dL (8.5-10.1); CREATININE 1.36 mg/dL (0.55-1.02); TOTAL PROTEIN 6.6 g/dL (6.4-8.2)
[2020-02-03 06:11] LABS: BASOPHILS # (AUTO) 0.2 X10^3/uL (0.0-0.1); BASOPHILS % (AUTO) 1.6 % (0.2-1.0); EOSINOPHILS # (AUTO) 0.2 x10^3/uL (0.0-0.2); EOSINOPHILS % (AUTO) 2.1 % (0.9-2.9); HEMATOCRIT 21.9 % (36.0-47.0); HEMOGLOBIN 7.2 g/dL (12.0-16.0); LYMPHOCYTES # (AUTO) 1.2 X10^3/uL (1.3-2.9); LYMPHOCYTES % (AUTO) 10.5 % (21.0-51.0); MEAN CORPUSCULAR HEMOGLOBIN 27.9 pg (27.0-34.0); MEAN CORPUSCULAR HGB CONC 32.8 g/dL (33.0-35.0); MEAN CORPUSCULAR VOLUME 84.9 fL (80.0-100.0); MEAN PLATELET VOLUME 7.9 fL (7.4-11.0); MONOCYTES # (AUTO) 1.2 x10^3/uL (0.3-0.8); MONOCYTES % (AUTO) 10.2 % (0.0-13.0); NEUTROPHILS # (AUTO) 8.8 x10^3/uL (2.2-4.8); NEUTROPHILS % (AUTO) 75.6 % (42.0-75.0); PLATELET COUNT 509 X10^3/uL (150.0-450.0); RED BLOOD COUNT 2.58 X10^6/uL (3.5-5.4); RED CELL DISTRIBUTION WIDTH 21.8 % (11.6-16.5); WHITE BLOOD COUNT 11.6 X10^3/uL (3.6-10.0)
[2020-02-03] MEDS: MAG-OX TAB PO SCH ×2 (06:28→16:33)
[2020-02-03 06:30] LABS: ANISOCYTOSIS 1+; HYPOCHROMASIA 1+; PLATELET MORPHOLOGY COMMENT NORMAL (NORMAL)
[2020-02-03] MEDS: K-RIDER 10 MEQ/NS 100 ML 10 MEQ/100 ML BAG IV PRN (06:35)
[2020-02-03] MEDS: PAXIL PO SCH (08:40)
[2020-02-03] MEDS: CARDIZEM ER 60 MG 12-HR PO SCH ×2 (08:40→20:54)
[2020-02-03] MEDS: LASIX IVP SCH ×2 (08:40→16:34)
[2020-02-03] MEDS: SYNTHROID 25 mcg TAB PO SCH (08:41)
[2020-02-03] MEDS ORDERED: TYLENOL 325 MG TAB PO PRN (09:34)
[2020-02-03] MEDS ORDERED: NS 500 ML IV 500 ML IV ONE (09:34)
[2020-02-03] MEDS ORDERED: BENADRYL INJ 50 MG VIAL IVP PRN (09:34)
[2020-02-03] MEDS: PULMICORT NEB TX 0.5 MG NEB SCH ×2 (09:40→21:25)
[2020-02-03] MEDS: CREON PO SCH ×2 (12:14→16:33)
[2020-02-03] MEDS: DUONEB 0.5 MG/3 MG (3 mL) NEB SCH ×2 (12:22→21:25)
[2020-02-03] MEDS: REQUIP PO SCH (20:54)
[2020-02-03] MEDS: XANAX PO PRN (20:55)
[2020-02-04] MEDS: DUONEB 0.5 MG/3 MG (3 mL) NEB SCH ×5 (00:48→17:35)
[2020-02-04] MEDS: PROTONIX INJ 40 MG VIAL 80 MG in NS 100 ML IV 80 ML IV SCH ×4 (00:49→22:06)
[2020-02-04] MEDS: PHENERGAN INJ 25 MG IM PRN ×3 (00:50→16:40)
[2020-02-04] MEDS: PERCOCET TAB 5/325 MG PO SCH ×4 (03:18→21:40)
[2020-02-04] MEDS: ZOFRAN INJ 4 MG VIAL IVP PRN ×2 (05:30→22:06)
[2020-02-04 06:16] LABS: BASOPHILS # (AUTO) 0.1 X10^3/uL (0.0-0.1); BASOPHILS % (AUTO) 0.7 % (0.2-1.0); EOSINOPHILS # (AUTO) 0.2 x10^3/uL (0.0-0.2); EOSINOPHILS % (AUTO) 1.4 % (0.9-2.9); HEMATOCRIT 25.7 % (36.0-47.0); HEMOGLOBIN 8.3 g/dL (12.0-16.0); LYMPHOCYTES # (AUTO) 0.8 X10^3/uL (1.3-2.9); LYMPHOCYTES % (AUTO) 6.8 % (21.0-51.0); MEAN CORPUSCULAR HEMOGLOBIN 27.6 pg (27.0-34.0); MEAN CORPUSCULAR HGB CONC 32.5 g/dL (33.0-35.0); MEAN CORPUSCULAR VOLUME 84.7 fL (80.0-100.0); MEAN PLATELET VOLUME 7.9 fL (7.4-11.0); MONOCYTES % (AUTO) 8.2 % (0.0-13.0); NEUTROPHILS # (AUTO) 10.1 x10^3/uL (2.2-4.8); NEUTROPHILS % (AUTO) 82.9 % (42.0-75.0); PLATELET COUNT 483 X10^3/uL (150.0-450.0); RED BLOOD COUNT 3.03 X10^6/uL (3.5-5.4); RED CELL DISTRIBUTION WIDTH 19.4 % (11.6-16.5); WHITE BLOOD COUNT 12.2 X10^3/uL (3.6-10.0)
[2020-02-04] MEDS: CREON PO SCH ×3 (06:19→16:41)
[2020-02-04] MEDS: MAG-OX TAB PO SCH ×2 (06:19→16:41)
[2020-02-04 06:21] LABS: ALANINE AMINOTRANSFERASE 6 Units/L (12-78); ALKALINE PHOSPHATASE 321 Units/L (46-116); ASPARTATE AMINO TRANSFERASE 61 Units/L (15-37); BLOOD UREA NITROGEN 13 mg/dL (7-18); CALCIUM 8.2 mg/dL (8.5-10.1); CARBON DIOXIDE 30.5 mmol/L (21-32); CHLORIDE 99 mmol/L (98-107); COR CA(FOR HYPOALB) 9.8 mg/dL (8.5-10.1); CREATININE 1.15 mg/dL (0.55-1.02); MAGNESIUM 1.5 mg/dL (1.7-2.9); SODIUM 140 mmol/L (136-145); TOTAL PROTEIN 6.5 g/dL (6.4-8.2); eGFR NON BLACK RACES 50 (>60)
[2020-02-04 07:12] LABS: ANISOCYTOSIS 1+; HYPOCHROMASIA SLIGHT; PLATELET MORPHOLOGY COMMENT NORMAL (NORMAL)
[2020-02-04] MEDS: CARDIZEM ER 60 MG 12-HR PO SCH (08:42)
[2020-02-04] MEDS: LASIX IVP SCH ×2 (08:42→16:41)
[2020-02-04] MEDS: PAXIL PO SCH (08:42)
[2020-02-04] MEDS: SYNTHROID 25 mcg TAB PO SCH (08:43)
[2020-02-04] MEDS: PULMICORT NEB TX 0.5 MG NEB SCH ×2 (08:43→21:00)
[2020-02-04 14:02] LABS: ABG BASE EXCESS 8.1 mmol/L (-2.0-2.0)
[2020-02-04 14:03] LABS: ABG HCO3 32.8 mmol/L (22-26)
[2020-02-04] MEDS: ROCEPHIN VIAL 1 GRAM 1 G in NS 100 ML IV + SPIKE MINIBAG* 100 ML IV SCH (19:06)
[2020-02-04] MEDS: CARDIZEM SR 90 MG 12-HR PO SCH (21:38)
[2020-02-04] MEDS: REQUIP PO SCH (21:40)
[2020-02-04] MEDS: XANAX PO PRN (21:40)
[2020-02-04] MEDS: VISTARIL PO PRN (21:40)
[2020-02-05] MEDS: DUONEB 0.5 MG/3 MG (3 mL) NEB SCH (00:30)
[2020-02-05] MEDS: PHENERGAN INJ 25 MG IM PRN (01:48)
[2020-02-05] MEDS: PERCOCET TAB 5/325 MG PO SCH ×2 (02:22→09:37)
[2020-02-05] MEDS: MAG-OX TAB PO SCH (06:12)
[2020-02-05] MEDS: CREON PO SCH ×2 (06:12→12:17)
[2020-02-05 06:28] LABS: BASOPHILS # (AUTO) 0.2 X10^3/uL (0.0-0.1); BASOPHILS % (AUTO) 1.5 % (0.2-1.0); EOSINOPHILS # (AUTO) 0.1 x10^3/uL (0.0-0.2); EOSINOPHILS % (AUTO) 1.2 % (0.9-2.9); HEMATOCRIT 25.1 % (36.0-47.0); HEMOGLOBIN 8.3 g/dL (12.0-16.0); LYMPHOCYTES # (AUTO) 0.7 X10^3/uL (1.3-2.9); LYMPHOCYTES % (AUTO) 6.7 % (21.0-51.0); MEAN CORPUSCULAR HEMOGLOBIN 28.1 pg (27.0-34.0); MEAN CORPUSCULAR HGB CONC 33.1 g/dL (33.0-35.0); MEAN CORPUSCULAR VOLUME 84.9 fL (80.0-100.0); MEAN PLATELET VOLUME 7.8 fL (7.4-11.0); MONOCYTES % (AUTO) 9.1 % (0.0-13.0); NEUTROPHILS # (AUTO) 8.8 x10^3/uL (2.2-4.8); NEUTROPHILS % (AUTO) 81.5 % (42.0-75.0); PLATELET COUNT 441 X10^3/uL (150.0-450.0); RED BLOOD COUNT 2.96 X10^6/uL (3.5-5.4); RED CELL DISTRIBUTION WIDTH 19.7 % (11.6-16.5); WHITE BLOOD COUNT 10.8 X10^3/uL (3.6-10.0)
--- NOTE | 2020-02-05 06:37 | RAD ---
HISTORYShortness of breathSTUDYChest AP [id number]/23/2020FINDINGSThere is a port present on the right. The heart is mildly enlarge d. No congestive heart failure is noted. Diffuse interstitial lung changes are present not significan tly different from the prior examination. No alveolar infiltrates or areas of consolidation are ident ified. No pleural effusions are identified. Bony thorax is unremarkable.IMPRESSIONMild cardiomegaly w ithout definite congestive heart failureNo change bilateral interstitial lung changesElectronically s igned by: ROSAURA MATIAS (Feb 05, 2020 06:35:33)
[2020-02-05 06:41] LABS: ALANINE AMINOTRANSFERASE 7 Units/L (12-78); ALBUMIN 1.9 g/dL (3.4-5.0); ALKALINE PHOSPHATASE 327 Units/L (46-116); ASPARTATE AMINO TRANSFERASE 63 Units/L (15-37); BLOOD UREA NITROGEN 11 mg/dL (7-18); CARBON DIOXIDE 29.6 mmol/L (21-32); CHLORIDE 99 mmol/L (98-107); COR CA(FOR HYPOALB) 9.7 mg/dL (8.5-10.1); MAGNESIUM 1.3 mg/dL (1.7-2.9); SODIUM 140 mmol/L (136-145); TOTAL PROTEIN 6.4 g/dL (6.4-8.2); eGFR NON BLACK RACES 48 (>60)
[2020-02-05 07:07] LABS: HYPOCHROMASIA 1+; PLATELET MORPHOLOGY COMMENT NORMAL (NORMAL)
[2020-02-05 07:08] LABS: ANISOCYTOSIS 1+
[2020-02-05] MEDS: PROTONIX INJ 40 MG VIAL 80 MG in NS 100 ML IV 80 ML IV SCH (07:14)
[2020-02-05] MEDS: ZOFRAN INJ 4 MG VIAL IVP PRN (07:15)
[2020-02-05] MEDS: PULMICORT NEB TX 0.5 MG NEB SCH (09:17)
[2020-02-05] MEDS: XANAX PO PRN (09:37)
[2020-02-05] MEDS: PAXIL PO SCH (09:37)
[2020-02-05] MEDS: LASIX IVP SCH (09:37)
[2020-02-05] MEDS: SYNTHROID 25 mcg TAB PO SCH (09:37)
[2020-02-05] MEDS: ROCEPHIN VIAL 1 GRAM 1 G in NS 100 ML IV + SPIKE MINIBAG* 100 ML IV SCH (09:38)
[2020-02-05] MEDS: CARDIZEM SR 90 MG 12-HR PO SCH (10:18)
[2020-02-05 11:03] LABS: ABG ALLEN TEST POS; ABG HCO3 27.1 mmol/L (22-26)
[2020-02-05 12:37] VITALS: BP 122/60
== END 2020-02-05 14:19 | DRG 189 ==
LOC: ER 12:11 → ICU 15:28 → MED/SURG 02-01 11:50
PROVIDERS: ADMIT Obstetrics & Gynecology Obstetrics; ATTEND Internal Medicine
DX: D64.89 Other specified anemias; R79.1 Abnormal coagulation profile; R62.7 Adult failure to thrive; K31.84 Gastroparesis; J20.8 Acute bronchitis due to other specified organisms; F41.8 Other specified anxiety disorders; R26.89 Other abnormalities of gait and mobility; I50.43 Acute on chronic combined systolic (congestive) and diastolic (congestive) heart failure; K86.1 Other chronic pancreatitis; R94.31 Abnormal electrocardiogram [ECG] [EKG]; Z99.81 Dependence on supplemental oxygen; Z11.59 Encounter for screening for other viral diseases; K21.9 Gastro-esophageal reflux disease without esophagitis; J96.20 Acute and chronic respiratory failure, unspecified whether with hypoxia or hypercapnia; J44.1 Chronic obstructive pulmonary disease with (acute) exacerbation; R07.2 Precordial pain; E78.2 Mixed hyperlipidemia; I11.0 Hypertensive heart disease with heart failure; E03.8 Other specified hypothyroidism
CPT/HCPCS: 36415; 36430; 36600; 51702; 71010; 71045; 74000; 74018; 80053; 81001; 82150; 82270; 82550; 82553; 82803; 83690; 83735; 84132; 84484; 85025; 85610; 85730; 86850; 86900; 86901; 86922; 87635; 93005; 94640; 96365; 96367; 96372; 96374; 96375; 97110; 97163; 97167; 97535; 99285; A4216; A4222; C9113; J0696; J1200; J1642; J1940; J2175; J2270; J2405; J2550; J3480; J7040; J7050; J7620; J7626; P9016; Q0177

== ENCOUNTER 2020-02-06 19:58 | Inpatient (IN) ==
[2020-02-06 20:25] LABS: ABG BASE EXCESS 1.6 mmol/L (-2.0-2.0); ABG HCO3 28.5 mmol/L (22-26)
[2020-02-06 20:26] LABS: ABG ALLEN TEST POS
[2020-02-06 20:59] LABS: BASOPHILS # (AUTO) 0.2 X10^3/uL (0.0-0.1); BASOPHILS % (AUTO) 1.2 % (0.2-1.0); EOSINOPHILS # (AUTO) 0.2 x10^3/uL (0.0-0.2); EOSINOPHILS % (AUTO) 1.3 % (0.9-2.9); HEMATOCRIT 26.8 % (36.0-47.0); HEMOGLOBIN 8.5 g/dL (12.0-16.0); LYMPHOCYTES # (AUTO) 1.9 X10^3/uL (1.3-2.9); LYMPHOCYTES % (AUTO) 11.9 % (21.0-51.0); MEAN CORPUSCULAR HEMOGLOBIN 26.9 pg (27.0-34.0); MEAN CORPUSCULAR HGB CONC 31.6 g/dL (33.0-35.0); MEAN CORPUSCULAR VOLUME 85.3 fL (80.0-100.0); MEAN PLATELET VOLUME 7.8 fL (7.4-11.0); MONOCYTES # (AUTO) 1.1 x10^3/uL (0.3-0.8); MONOCYTES % (AUTO) 6.6 % (0.0-13.0); NEUTROPHILS # (AUTO) 12.8 x10^3/uL (2.2-4.8); PLATELET COUNT 538 X10^3/uL (150.0-450.0); RED BLOOD COUNT 3.15 X10^6/uL (3.5-5.4); RED CELL DISTRIBUTION WIDTH 21.4 % (11.6-16.5); WHITE BLOOD COUNT 16.2 X10^3/uL (3.6-10.0)
--- NOTE | 2020-02-06 21:02 | RAD ---
STUDY: CHEST, 1 VIEWCOMPARISON: February 05, 2020HISTORY: SOB, UNRESPONSIVEFINDINGS:Right chemotherapy port is stable. There is persistent alveolar airspace disease throughout the left lung similar in appearance to the prior examination. There is increased interstitial lung markings in the right lung which is unchanged from the prior exam. Cardiomediastinal contour is stable. Trachea is midline. No pleural effusion or gross pneumothorax is seen.IMPRESSION:There is no significant change from prior studyElectronically signed by: Ken Anna (Feb 06, 2020 21:01:32)
[2020-02-06 21:03] LABS: BLOOD UREA NITROGEN 11 mg/dL (7-18); CALCIUM 8.3 mg/dL (8.5-10.1); CARBON DIOXIDE 26.4 mmol/L (21-32); CHLORIDE 96 mmol/L (98-107); COR NA(FOR HYPERGLY) 140 mmol/L (136-145); CREATININE 1.55 mg/dL (0.55-1.02); SODIUM 139 mmol/L (136-145); TROPONIN I < 0.02 ng/mL (0-1.5); eGFR NON BLACK RACES 35 (>60)
[2020-02-06 21:07] LABS: ALANINE AMINOTRANSFERASE 6 Units/L (12-78); ALBUMIN 2.2 g/dL (3.4-5.0); ALKALINE PHOSPHATASE 384 Units/L (46-116); ASPARTATE AMINO TRANSFERASE 66 Units/L (15-37); CKMB % 4.6 % (<4); COR CA(FOR HYPOALB) 9.7 mg/dL (8.5-10.1); CREATINE KINASE 22 Units/L (26-192); CREATINE KINASE MB < 1.0 ng/mL (0-4.0); MAGNESIUM 1.6 mg/dL (1.7-2.9); TOTAL PROTEIN 7.1 g/dL (6.4-8.2)
--- NOTE | 2020-02-06 21:07 | CT ---
HISTORYSOB, UNRESPONSIVESTUDYBRAIN W/O CONCOMPARISONNone.TECHNIQUEMultiple axial images of the brain were obtained from the skull base to the vertex without administration of IV contrast. Dose reduction techniques including Automated Exposure Control (AEC) and adjustment of mA and kV were utilized.FINDINGSNo acute intraparenchymal hemorrhage or mass can be identified. No extra-axial fluid collections are seen. No alteration in the attenuation of the brain parenchyma can be identified to suggest acute or subacute ischemic change. The ventricular system is symmetric and nondilated. There is mild mucoperiosteal thickening involving both sphenoid sinuses and maxillary sinus on the right. There is complete opacification of the mastoid air cells on the right and partial opacification of the mastoid air cells on the left.IMPRESSION1. No acute intracranial process can be identified.2. Opacification of the mastoid air cells bilaterally, right greater than left. Clinical correlation for mastoiditis is requested.3. Mild paranasal mucosal sinus disease.Electronically signed by: YASIR FREEMAN (Feb 06, 2020 21:05:29)
[2020-02-06 21:30] LABS: ANISOCYTOSIS 1+; HYPOCHROMASIA 2+; PLATELET MORPHOLOGY COMMENT NORMAL (NORMAL); STOMATOCYTES PRESENT
[2020-02-06] MEDS ORDERED: LEVAQUIN PREMIX IV 750 MG 750 MG/150 ML BAG IV ONE ×2 (22:04→22:27)
[2020-02-06] MEDS ORDERED: NS 1000 ML 1,000 ML ONE (22:27)
[2020-02-06] MEDS ORDERED: ATIVAN INJ 2 MG VIAL IVP ONE (23:33)
[2020-02-06] MEDS ORDERED: ATIVAN INJ 2 MG VIAL ONE (23:35)
--- NOTE | 2020-02-07 00:07 | DR.AMS ---
HPI Time Seen Time Seen by Provider: 02/06/20 21:51 PCP Primary Care Physician: YADIRA HPI Comment HPI Comment: Patient arrived grunting and tachypneic, following some instructions but not responding verbally. She was discharged after being admitted for SHOB yesterday. Complaint Chief Complaint:: ACCORDING TO [place] STAFF, PATIENT WAS FOUND TO BE UNRESPONSIVE. PATIENT ARRIVED TO TRAUMA ROOM VIA [place] STAFF. PATIENT IS HAVING GRUNTING BREATHING SOUNDS ON NC @4LPM. PATIENT O2 SAT = 86% UPON ARRIVAL. DR. KAN AT BEDSIDE. 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 and Tonsillectomy Family History History of Family Medical Conditions: No Family Medical History: Diabetes Mellitus and Hypertension Social History Do you use any recreational Drugs:: No Lives Where: [facility] Travel Risk Coronavirus risk:travel/contact w/high risk person: No Has patient experienced Coronavirus symptoms: Yes Coronavirus symptoms experienced: Shortness of Breath Infectious screening In the last 2 months have you had wt loss of >10#?: NO Have you had fever, night sweats or hemotysis?: No Have you traveled outside the country in the last 6 months?: No Isolation: Standard ROS Review of Systems Constitutional: No Symptoms Reported Eyes: No Symptoms Reported ENTM: No Symptoms Reported Respiratoy: No Symptoms Reported Cardiovascular: No Symptoms Reported Gastrointestinal/Abdominal: No Symptoms Reported Genitourinary: No Symptoms Reported Neurological: No Symptoms Reported Musculoskeletal: No Symptoms Reported Integumentary: No Symptoms Reported Hematologic/Lymphatic: No Symptoms Reported Endocrine: No Symptoms Reported Psychiatric: No Symptoms Reported All Other Systems: Reviewed and Negative Unable to Obtain Due To: Altered mental status and Medical urgency PE Vitals Vital Signs: Temp Pulse Resp BP BP BP Pulse Ox 02/07/20 01:00 109 H 21 85/48 02/07/20 00:45 108 H 39 H 02/07/20 00:31 109 H 26 H 81/42 02/07/20 00:30 110 H 41 H 02/07/20 00:19 104 H 31 H 99 02/06/20 19:58 98.3 F 113 H 28 H 143/86 86 L 02/05/20 12:00 122/60 02/01/20 04:00 105/56 08/18/19 09:08 156/67 General Limitations: No Limitations and Altered Mental Status General Appearance: Alert, Anxious and In Distress Head Head Exam: Normal Inspection and Atraumatic Eyes Eye exam: Normal Appearance and PERRL ENT ENT Exam: Normal Exam External Ear Exam: Normal External Inspection Nose Exam: Normal Nose Exam Mouth Exam: Normal Inspection Throat Exam: Normal Inspection Neck Neck Exam: Normal Inspection Chest Chest Inspection: Normal Inspection and Symmetric Chest Wall Rise Respiratory Respiratory Exam: Accessory Muscle Use, Respiratory Distress and Other Respiratory Exam: Bilateral: Crackles and Lower: Crackles Cardiovascular Cardiovascular Exam: Normal Rhythm and Tachycardia Abdominal Exam Abdominal Exam: Normal Inspection and Soft; negative Distention, Tenderness, Guarding, Rebound and Rigidity Extremities Extremities Exam: Normal Inspection Back Back Exam: Normal Inspection Neurological Neurological Exam: Alert and Other (Unable to perform full neuro due to respiratory distress, No assymmetry noted, moves all limbs.) Psychological Psychiatric Exam: Normal Affect and Normal Mood Skin Skin Exam: Warm, Dry, Intact and Normal Color COURSE Treatment Treatment: hypoxemic, hypercarbic failure per ABG, Bipap placed, with immediate improvement in breathing / appearance. Leukocytosis 16.9 may be secondary to corticosteroids, however as meeting SIRS criteria, with lungs as likely focus, given Levaquin empirically. Patient with anemia, likely of chronic disease, and CKD unchanged from baseline. CT head negative for any intracranial pathology, but suspicious for b/l mastitis. She is suspected to be taking benzodiazepines regularly at home, and she experienced an episode of acute agitation in the ED, relieved with 1mg Ativan IV. Repeat ABG showed improvement in oxygenation, and noncritical, unimproved ventilation deficit. Also with interval increase in alk phos compared to previously elevated values. Discussed case with Dr. Coley who agreed to admit, agreed with Levaquin IV, and with bipap. Reevaluation 1st: Improved ROR Labs Reviewed Result Diagrams: 02/06/20 20:36 02/06/20 20:36 Laboratory: WBC 16.2 X10^3/uL (3.6-10.0) H 02/06/20 20:36 RBC 3.15 X10^6/uL (3.5-5.4) L 02/06/20 20:36 Hgb 8.5 g/dL (12.0-16.0) L 02/06/20 20:36 Hct 26.8 % (36.0-47.0) L 02/06/20 20:36 MCV 85.3 fL (80.0-100.0) 02/06/20 20:36 MCH 26.9 pg (27.0-34.0) L 02/06/20 20:36 MCHC 31.6 g/dL (33.0-35.0) L 02/06/20 20:36 RDW 21.4 % (11.6-16.5) H 02/06/20 20:36 Plt Count 538 X10^3/uL (150.0-450.0) H 02/06/20 20:36 Plt Count Comment Increased (ADEQUATE) A 02/06/20: MPV 7.8 fL (7.4-11.0) 02/06/20 20:36 Neut % (Auto) 79.0 % (42.0-75.0) H 02/06/20 20:36 Lymph % (Auto) 11.9 % (21.0-51.0) L 02/06/20 20:36 [place] % (Auto) 6.6 % (0.0-13.0) 02/06/20 20:36 Eos % (Auto) 1.3 % (0.9-2.9) 02/06/20 20:36 Baso % (Auto) 1.2 % (0.2-1.0) H 02/06/20 20:36 Neut # (Auto) 12.8 x10^3/uL (2.2-4.8) H 02/06/20 20:36 Lymph # (Auto) 1.9 X10^3/uL (1.3-2.9) 02/06/20 20:36 [place] # (Auto) 1.1 x10^3/uL (0.3-0.8) H 02/06/20 20:36 Eos # (Auto) 0.2 x10^3/uL (0.0-0.2) 02/06/20 20:36 Baso # (Auto) 0.2 X10^3/uL (0.0-0.1) H 02/06/20 20:36 Absolute Nucleated RBC 0.0 /100WBC 02/06/20 20:36 Plt Morphology Comment Normal (NORMAL) 02/06/20 20:36 RBC Morphology Abnormal (NORMAL) A 02/06/20 20:36 Hypochromasia 2+ A 02/06/20 20:36 Anisocytosis 1+ A 02/06/20 20:36 Stomatocytes Present 02/06/20 20:36 Sample Site Rr 02/06/20 23:53 ABG pH 7.340 (7.35-7.45) L 02/06/20 23:53 ABG pCO2 56.0 mmHg (35.0-45.0) H* 02/06/20 23:53 ABG pO2 97.0 mmHg (80.0-100.0) 02/06/20 23:53 ABG HCO3 30.2 mmol/L (22-26) H* 02/06/20 23:53 ABG O2 Saturation 97.0 % (90-100) 02/06/20 23:53 ABG Base Excess 3.2 mmol/L (-2.0-2.0) H 02/06/20 23:53 Sameer Test Pos 02/06/20 23:53 A-a Gradient 154.0 mmHg 02/06/20 23:53 FiO2 45.0 02/06/20 23:53 Blood Gas Comments [place] well sw 02/06/20 23:53 Sodium 139 mmol/L (136-145) 02/06/20 20:36 Corrected Sodium 140 mmol/L (136-145) 02/06/20 20:36 Potassium 3.9 mmol/L (3.5-5.1) 02/06/20 20:36 Chloride 96 mmol/L (98-107) L 02/06/20 20:36 Carbon Dioxide 26.4 mmol/L (21-32) 02/06/20 20:36 BUN 11 mg/dL (7-18) 02/06/20 20:36 Creatinine 1.55 mg/dL (0.55-1.02) H 02/06/20 20:36 Est GFR (MDRD) Af Amer 43 (>60) L 02/06/20 20:36 Est GFR (MDRD) Non-Af 35 (>60) L 02/06/20 20:36 Glucose 126 mg/dL (65-99) H 02/06/20 20:36 Calcium 8.3 mg/dL (8.5-10.1) L 02/06/20 20:36 Corrected Calcium 9.7 mg/dL (8.5-10.1) 02/06/20 20:36 Magnesium 1.6 mg/dL (1.7-2.9) L 02/06/20 20:36 Total Bilirubin 1.50 mg/dL (0.2-1.0) H 02/06/20 20:36 AST 66 Units/L (15-37) H 02/06/20 20:36 ALT 6 Units/L (12-78) L 02/06/20 20:36 Alkaline Phosphatase 384 Units/L (46-116) H 02/06/20 20:36 Creatine Kinase 22 Units/L (26-192) L 02/06/20 20:36 CK-MB (CK-2) < 1.0 ng/mL (0-4.0) 02/06/20 20:36 CK/CKMB % Calc 4.6 % (<4) 02/06/20 20:36 Troponin I < 0.02 ng/mL (0-1.5) 02/06/20 20:36 Total Protein 7.1 g/dL (6.4-8.2) 02/06/20 20:36 Albumin 2.2 g/dL (3.4-5.0) L 02/06/20 20:36 Globulin 4.9 g/dL (2.5-4.5) H 02/06/20 20:36 Albumin/Globulin Ratio 0.4 Ratio (1.1-2.1) L 02/06/20 20:36 SARS-CoV-2 (PCR) Negative (NEGATIVE) 02/06/20 22:31 EKG [place]: Normal Rhythm: NSR Block: None Hypertrophy: None ST: Normal Opioid Opioid Risk Tool Age (Jann box if 16-45): No History of Preadolescent Sexual Abuse: No Total: 0 Total Score Risk Category: Low Risk Copyright: Alexis ROJAS predicting aberrant behaviors Diagnosis Discharge Problem: Elevated alkaline phosphatase level Respiratory failure Qualifiers: Chronicity: acute on chronic Respiratory failure complication: hypoxia and hypercapnia Qualified Code(s): J96.21 - Acute and chronic respiratory failure with hypoxia Instructions Forms: Excuse From Work Precautions for COVID19 Patient Portal Social Distancing
[2020-02-07 00:37] LABS: ABG BASE EXCESS 3.2 mmol/L (-2.0-2.0)
[2020-02-07 00:40] LABS: ABG ALLEN TEST POS; ABG HCO3 30.2 mmol/L (22-26)
[2020-02-07] MEDS ORDERED: MAGNESIUM SULFATE 50% INJ VIAL IV ONE (02:20)
[2020-02-07] MEDS ORDERED: XANAX PO PRN (03:12)
[2020-02-07] MEDS ORDERED: DUONEB 0.5 MG/3 MG (3 mL) NEB SCH (06:00)
[2020-02-07] MEDS: DUONEB 0.5 MG/3 MG (3 mL) NEB SCH ×3 (06:25→18:00)
[2020-02-07] MEDS ORDERED: CREON PO SCH (07:00)
[2020-02-07 08:37] LABS: BASOPHILS # (AUTO) 0.2 X10^3/uL (0.0-0.1); BASOPHILS % (AUTO) 1.3 % (0.2-1.0); EOSINOPHILS # (AUTO) 0.1 x10^3/uL (0.0-0.2); EOSINOPHILS % (AUTO) 0.4 % (0.9-2.9); HEMATOCRIT 20.6 % (36.0-47.0); LYMPHOCYTES # (AUTO) 0.9 X10^3/uL (1.3-2.9); LYMPHOCYTES % (AUTO) 7.2 % (21.0-51.0); MEAN CORPUSCULAR HEMOGLOBIN 27.8 pg (27.0-34.0); MEAN CORPUSCULAR HGB CONC 32.4 g/dL (33.0-35.0); MEAN CORPUSCULAR VOLUME 85.7 fL (80.0-100.0); MEAN PLATELET VOLUME 7.8 fL (7.4-11.0); MONOCYTES # (AUTO) 1.1 x10^3/uL (0.3-0.8); MONOCYTES % (AUTO) 8.9 % (0.0-13.0); NEUTROPHILS # (AUTO) 10.1 x10^3/uL (2.2-4.8); NEUTROPHILS % (AUTO) 82.2 % (42.0-75.0); PLATELET COUNT 407 X10^3/uL (150.0-450.0); RED BLOOD COUNT 2.41 X10^6/uL (3.5-5.4); WHITE BLOOD COUNT 12.2 X10^3/uL (3.6-10.0)
[2020-02-07 08:44] LABS: ALANINE AMINOTRANSFERASE 9 Units/L (12-78); ALBUMIN 1.9 g/dL (3.4-5.0); ALKALINE PHOSPHATASE 312 Units/L (46-116); ASPARTATE AMINO TRANSFERASE 53 Units/L (15-37); BLOOD UREA NITROGEN 18 mg/dL (7-18); CALCIUM 7.7 mg/dL (8.5-10.1); CARBON DIOXIDE 29.3 mmol/L (21-32); CHLORIDE 101 mmol/L (98-107); COR CA(FOR HYPOALB) 9.4 mg/dL (8.5-10.1); CREATININE 1.88 mg/dL (0.55-1.02); HEMOGLOBIN 6.7 g/dL (12.0-16.0); MAGNESIUM 1.7 mg/dL (1.7-2.9); SODIUM 141 mmol/L (136-145); TOTAL PROTEIN 5.6 g/dL (6.4-8.2); eGFR NON BLACK RACES 28 (>60)
[2020-02-07 08:50] LABS: ANISOCYTOSIS 1+; HYPOCHROMASIA 1+; PLATELET MORPHOLOGY COMMENT NORMAL (NORMAL)
[2020-02-07] MEDS ORDERED: LASIX PO SCH (09:00)
[2020-02-07] MEDS ORDERED: ALDACTONE TAB 25 MG PO SCH (09:00)
[2020-02-07] MEDS ORDERED: CARDIZEM SR 90 MG 12-HR PO SCH (09:00)
[2020-02-07] MEDS ORDERED: PROTONIX TAB 40 MG PO SCH (09:00)
[2020-02-07] MEDS ORDERED: BENADRYL INJ 50 MG VIAL IVP PRN (09:43)
[2020-02-07] MEDS ORDERED: NS 500 ML IV 500 ML IV ONE ×2 (09:43→15:11)
[2020-02-07] MEDS ORDERED: TYLENOL 325 MG TAB PO PRN (09:43)
[2020-02-07 10:31] VITALS: BMI 63.1
--- NOTE | 2020-02-07 12:02 | DR.H&P ---
H&P - History & Physical for Day of: H&P Date: 02/07/20 - Chief Complaint Chief Complaint: AMS - History of Present Illness History of Present Illness: PT IS 65 WF ER ADMISSION WITH REPORTS PT WAS FOUND UNRESPONSIVE AT [facility]. PT WAS ADMITTED ON SATURDAY FOR REHAB THERAPY. PT HAS PMH OF COPD WITH RESP FAILURE AND O2 DEPENDENT. NURSING STAFF RECEIVED REPORT PT HAD PULLED OFF HER O2. PT WAS HYPOXIC ON ARRIVAL TO ER. PT WAS PLACED ON BIPAP AND ADMITTED FOR TREATMENT OF ACUTE ILLNESS, CT HEAD IN ER NEGATIVE FOR ACUTE CVA. - Past Medical History Past Medical History: Anxiety, CHF, COPD, Depression, GERD, Hypothyroidism Additional Medical History: CHRONIC PANCREATITIS, NON MALIGNANT PANCREATIC MASS - Past Surgical History Surgical History: Appendectomy, Bowel Resection, CABG/Valve Surgery, Cholecystectomy, BEATER BOSS Surgery, Tonsillectomy - Family History Family Medical History: Diabetes Mellitus, Hypertension - Social History Does patient currently use any type of tobacco product: No Type of Tobacco Use: None Alcohol Use: None Drug Use: None - Medications Home Medications: ketorolac [From Toradol] Allergy (Verified 10/13/19 23:16) Penicillins Allergy (Verified 10/13/19 23:16) Sulfa (Sulfonamide Antibiotics) [SULFA] Allergy (Verified 10/13/19 23:16) BETA BLOCKERS Allergy (Uncoded 10/08/19 17:57) - Review of Systems Constitutional: Weakness Eyes: No Symptoms Reported ENT: No Symptoms Reported Respiratory: Shortness of Breath Cardiovascular: Palpitations Gastrointestinal: No Symptoms Reported Genitourinary: No Symptoms Reported Musculoskeletal: No Symptoms Reported Skin: No Symptoms Reported Neurological: Other (UNRESPONSIVE) - Physical Exam Vital Signs: Temperature 98.3 F Pulse Rate [Right Radial] 72 Pulse Rate 113 Respiratory Rate 18 Blood Pressure [Left Arm] 104/71 Blood Pressure [Right Arm] 156/67 Blood Pressure 85/48 O2 Sat by Pulse Oximetry 94 Oriented: Other (PT WOULD OPEN HER EYES CALLING HER NAME) Eyes: Normal Ear: Normal Nose: Normal Throat: Dry Respiratory: Diminished Throughout Cardiovascular: Tachycardia, Edema (+1 BILATERAL LOWER EXTREMITY EDEMA) Auscultation: Bowel Sounds: Normal Palpation: Normal Tenderness: Normal Skin: Decreased [place] Musculoskeletal: Motor Deficit Psychiatric: Anxiety Affect: Anxious Speech Pattern: Delayed, Slurred - Assessment/Plan (1) Altered mental status Status: Acute Plan: ADMIT, RESP THERAPY. CORRECT HYPOXIA, ON BIPAP THERAPY. IV STEROIDS, BP CONTROL. TODD WITH STRICT I & OS. BP MONITORING, TYPE AND SCREEN TRANSFUSE PRBC DUE TO ANEMIA. OBTAIN ANEMIA PANEL, OCCULT STOOL. NPO, IV HYDRATION, SERIAL CE AND EKG, REPEAT ABG (2) Respiratory failure Qualifiers: Chronicity: acute on chronic Respiratory failure complication: hypoxia and hypercapnia Qualified Code(s): J96.21 - Acute and chronic respiratory failure with hypoxia; J96.22 - Acute and chronic respiratory failure with hypercapnia Status: Acute (3) CHF (congestive heart failure) Qualifiers: Heart failure type: combined systolic and diastolic Heart failure chronicity: acute on chronic Qualified Code(s): I50.43 - Acute on chronic combined systolic (congestive) and diastolic (congestive) heart failure Status: Acute (4) CKD (chronic kidney disease) stage 3, GFR 30-59 ml/min Status: Chronic (5) COPD (chronic obstructive pulmonary disease) with acute bronchitis Status: Chronic (6) Chronic pancreatitis Status: Chronic (7) Essential hypertension Status: Chronic - Allergies Allergies/Adverse Reactions: Allergies Allergy/AdvReac Type Severity Reaction Status Date / Time ketorolac [From Toradol] Allergy Verified 10/13/19 23:16 Penicillins Allergy Verified 10/13/19 23:16 Sulfa (Sulfonamide Allergy Verified 10/13/19 23:16 Antibiotics) [SULFA] BETA BLOCKERS Allergy Uncoded 10/08/19 17:57
[2020-02-07] MEDS: NYSTATIN CREAM TOP SCH ×2 (12:20→20:45)
[2020-02-07] MEDS: PROTONIX INJ 40 MG VIAL IVP SCH ×2 (12:42→20:45)
[2020-02-07] MEDS: SOLU-Medrol 125 MG VIAL IVP SCH ×3 (12:43→22:26)
[2020-02-07] MEDS: LASIX IVP SCH (18:52)
[2020-02-07 18:57] LABS: HEMATOCRIT 23.4 % (36.0-47.0); HEMOGLOBIN 7.7 g/dL (12.0-16.0)
[2020-02-07] MEDS: PAXIL PO SCH (19:55)
[2020-02-07] MEDS: SYNTHROID 25 mcg TAB PO SCH (19:55)
[2020-02-07] MEDS ORDERED: MORPHINE SULFATE INJ 2 MG INJ ONE (20:17)
[2020-02-07] MEDS ORDERED: REQUIP PO SCH (21:00)
[2020-02-07] MEDS: MORPHINE SULFATE INJ 2 MG INJ IVP PRN (21:18)
[2020-02-08] MEDS: MORPHINE SULFATE INJ 2 MG INJ IVP PRN (01:30)
[2020-02-08 05:22] LABS: BASOPHILS % (AUTO) 0.6 % (0.2-1.0); HEMATOCRIT 22.6 % (36.0-47.0); HEMOGLOBIN 7.4 g/dL (12.0-16.0); LYMPHOCYTES # (AUTO) 0.4 X10^3/uL (1.3-2.9); LYMPHOCYTES % (AUTO) 5.2 % (21.0-51.0); MEAN CORPUSCULAR HEMOGLOBIN 28.4 pg (27.0-34.0); MEAN CORPUSCULAR HGB CONC 32.6 g/dL (33.0-35.0); MEAN CORPUSCULAR VOLUME 87.1 fL (80.0-100.0); MEAN PLATELET VOLUME 8.4 fL (7.4-11.0); MONOCYTES # (AUTO) 0.2 x10^3/uL (0.3-0.8); NEUTROPHILS # (AUTO) 7.6 x10^3/uL (2.2-4.8); NEUTROPHILS % (AUTO) 92.2 % (42.0-75.0); PLATELET COUNT 411 X10^3/uL (150.0-450.0); RED BLOOD COUNT 2.59 X10^6/uL (3.5-5.4); RED CELL DISTRIBUTION WIDTH 21.2 % (11.6-16.5); WHITE BLOOD COUNT 8.2 X10^3/uL (3.6-10.0)
[2020-02-08 05:49] LABS: CARBON DIOXIDE 25.8 mmol/L (21-32); COR CA(FOR HYPOALB) 9.6 mg/dL (8.5-10.1); CREATININE 1.57 mg/dL (0.55-1.02); TOTAL PROTEIN 6.6 g/dL (6.4-8.2)
[2020-02-08] MEDS: DUONEB 0.5 MG/3 MG (3 mL) NEB SCH ×4 (06:37→18:00)
[2020-02-08 06:40] LABS: BAND NEUTROPHILS % 2 % (0-10)
[2020-02-08 06:41] LABS: PLATELET MORPHOLOGY COMMENT NORMAL (NORMAL)
[2020-02-08 06:42] LABS: ANISOCYTOSIS 1+; HYPOCHROMASIA SLIGHT
--- NOTE | 2020-02-08 06:52 | RAD ---
HISTORYRespiratory distressSTUDYChest AP [id number]/2020FINDINGSThe heart is enlarged. No congestive heart failure is noted. The right lung is clear. Interstitial lung changes are present throughout the left lung unchanged. No pleural effusions are identified. Bony thorax is unremarkable. There is a right-sided port present.IMPRESSIONInterstitial lung changes throughout the left lung unchanged from the prior examinationMild cardiomegaly without congestive heart failureElectronically signed by: ROSAURA MATIAS (Feb 08, 2020 06:51:06)
[2020-02-08] MEDS ORDERED: PHENERGAN INJ 25 MG IM PRN (08:42)
[2020-02-08] MEDS: PROTONIX INJ 40 MG VIAL IVP SCH ×2 (08:51→21:13)
[2020-02-08] MEDS: LASIX IVP SCH (08:51)
[2020-02-08] MEDS: NYSTATIN CREAM TOP SCH ×2 (09:05→21:13)
[2020-02-08 09:45] LABS: ABG BASE EXCESS 3.1 mmol/L (-2.0-2.0); ABG HCO3 29.8 mmol/L (22-26)
[2020-02-08 09:46] LABS: ABG ALLEN TEST POS
[2020-02-08] MEDS ORDERED: PHARMACY CONSULT LTC MEDICATIONS XX SCH (11:00)
[2020-02-08] MEDS: LEVAQUIN PREMIX IV 750 MG 750 MG/150 ML BAG IV SCH (21:13)
[2020-02-09] MEDS: DUONEB 0.5 MG/3 MG (3 mL) NEB SCH ×4 (00:48→17:17)
[2020-02-09 06:36] LABS: ALANINE AMINOTRANSFERASE 7 Units/L (12-78); ALBUMIN 2.1 g/dL (3.4-5.0); ALKALINE PHOSPHATASE 232 Units/L (46-116); ASPARTATE AMINO TRANSFERASE 44 Units/L (15-37); BLOOD UREA NITROGEN 34 mg/dL (7-18); CALCIUM 8.6 mg/dL (8.5-10.1); CARBON DIOXIDE 31.3 mmol/L (21-32); CHLORIDE 104 mmol/L (98-107); COR CA(FOR HYPOALB) 10.1 mg/dL (8.5-10.1); CREATININE 1.36 mg/dL (0.55-1.02); SODIUM 146 mmol/L (136-145); TOTAL PROTEIN 6.5 g/dL (6.4-8.2); eGFR NON BLACK RACES 41 (>60)
[2020-02-09 06:38] LABS: BASOPHILS % (AUTO) 0.4 % (0.2-1.0); EOSINOPHILS % (AUTO) 0.3 % (0.9-2.9); LYMPHOCYTES # (AUTO) 0.9 X10^3/uL (1.3-2.9); LYMPHOCYTES % (AUTO) 8.3 % (21.0-51.0); MEAN CORPUSCULAR HEMOGLOBIN 28.1 pg (27.0-34.0); MEAN CORPUSCULAR VOLUME 85.4 fL (80.0-100.0); MEAN PLATELET VOLUME 8.1 fL (7.4-11.0); MONOCYTES # (AUTO) 0.7 x10^3/uL (0.3-0.8); MONOCYTES % (AUTO) 6.9 % (0.0-13.0); NEUTROPHILS # (AUTO) 8.7 x10^3/uL (2.2-4.8); NEUTROPHILS % (AUTO) 84.1 % (42.0-75.0); PLATELET COUNT 396 X10^3/uL (150.0-450.0); RED BLOOD COUNT 2.18 X10^6/uL (3.5-5.4); WHITE BLOOD COUNT 10.4 X10^3/uL (3.6-10.0)
[2020-02-09 06:41] LABS: HEMOGLOBIN 6.1 g/dL (12.0-16.0)
[2020-02-09 06:42] LABS: HEMATOCRIT 18.6 % (36.0-47.0)
[2020-02-09 06:55] LABS: PLATELET MORPHOLOGY COMMENT NORMAL (NORMAL)
[2020-02-09 06:56] LABS: ANISOCYTOSIS 2+; HYPOCHROMASIA 1+; MICROCYTOSIS SLIGHT
[2020-02-09] MEDS: NYSTATIN CREAM TOP SCH ×2 (09:57→20:24)
[2020-02-09] MEDS: PROTONIX INJ 40 MG VIAL IVP SCH ×2 (09:57→20:24)
[2020-02-09 10:20] LABS: HEMOGLOBIN 6.2 g/dL (12.0-16.0)
[2020-02-09 10:21] LABS: HEMATOCRIT 19.2 % (36.0-47.0)
[2020-02-09] MEDS ORDERED: NS 250 ML IV 250 ML IV ONE (12:23)
[2020-02-09] MEDS: CARDIZEM TAB 30 MG PLAIN PO SCH (13:39)
[2020-02-09 20:22] LABS: HEMATOCRIT 21.3 % (36.0-47.0)
[2020-02-09] MEDS ORDERED: TYLENOL 325 MG TAB PO PRN (20:25)
[2020-02-09 20:37] LABS: HEMOGLOBIN 6.6 g/dL (12.0-16.0)
[2020-02-09 21:51] LABS: ABG BASE EXCESS 9.8 mmol/L (-2.0-2.0)
[2020-02-09 21:52] LABS: ABG ALLEN TEST POS; ABG HCO3 34.9 mmol/L (22-26)
[2020-02-09] MEDS ORDERED: NS 1000 ML 1,000 ML ONE (22:47)
[2020-02-09 23:22] LABS: ABG BASE EXCESS 7.8 mmol/L (-2.0-2.0)
[2020-02-09 23:23] LABS: ABG ALLEN TEST POS; ABG HCO3 32.7 mmol/L (22-26)
--- NOTE | 2020-02-10 00:03 | CT ---
STUDY: CT HEAD WITHOUT IV CONTRASTCOMPARISON: February 06, 2020TECHNIQUE: axial images were acquired of the head without IV contrast. Coronal and sagittal images were provided. All images were reviewed in a variety of windows and levels.RADIATION REDUCTION TECHNIQUE: Automated exposure control, Adjustment of the mA and/or kV according to patient size, or iterative reconstruction techniques were used.HISTORY: AMSFINDINGS:There is no evidence of an acute intracranial bleed.There is no evidence of a mass or midline shift.There is no evidence of an extra-axial fluid collection.The chino-white matter differentiation is within normal limits.The visualized bones are unremarkable.The visualized sinuses are clear.The mastoid air cells are well-aerated.IMPRESSION:THERE IS NO EVIDENCE OF AN ACUTE INTRACRANIAL BLEEDElectronically signed by: Ken Anna (Feb 10, 2020 00:01:57)
[2020-02-10] MEDS: DUONEB 0.5 MG/3 MG (3 mL) NEB SCH ×4 (00:35→17:27)
[2020-02-10] MEDS: CARDIZEM TAB 30 MG PLAIN PO SCH ×2 (01:43→12:36)
[2020-02-10 05:32] LABS: BASOPHILS # (AUTO) 0.1 X10^3/uL (0.0-0.1); BASOPHILS % (AUTO) 0.6 % (0.2-1.0); EOSINOPHILS # (AUTO) 0.1 x10^3/uL (0.0-0.2); EOSINOPHILS % (AUTO) 0.4 % (0.9-2.9); HEMATOCRIT 23.1 % (36.0-47.0); HEMOGLOBIN 7.2 g/dL (12.0-16.0); LYMPHOCYTES # (AUTO) 3.3 X10^3/uL (1.3-2.9); LYMPHOCYTES % (AUTO) 18.1 % (21.0-51.0); MEAN CORPUSCULAR HEMOGLOBIN 27.5 pg (27.0-34.0); MEAN CORPUSCULAR HGB CONC 31.3 g/dL (33.0-35.0); MEAN CORPUSCULAR VOLUME 87.8 fL (80.0-100.0); MEAN PLATELET VOLUME 8.2 fL (7.4-11.0); MONOCYTES # (AUTO) 1.7 x10^3/uL (0.3-0.8); MONOCYTES % (AUTO) 9.2 % (0.0-13.0); NEUTROPHILS # (AUTO) 13.1 x10^3/uL (2.2-4.8); NEUTROPHILS % (AUTO) 71.7 % (42.0-75.0); PLATELET COUNT 401 X10^3/uL (150.0-450.0); RED BLOOD COUNT 2.63 X10^6/uL (3.5-5.4); RED CELL DISTRIBUTION WIDTH 21.3 % (11.6-16.5); WHITE BLOOD COUNT 18.3 X10^3/uL (3.6-10.0)
[2020-02-10 05:44] LABS: ALANINE AMINOTRANSFERASE < 6 Units/L (12-78); ALKALINE PHOSPHATASE 202 Units/L (46-116); ASPARTATE AMINO TRANSFERASE 88 Units/L (15-37); BLOOD UREA NITROGEN 43 mg/dL (7-18); CALCIUM 8.1 mg/dL (8.5-10.1); CARBON DIOXIDE 26.7 mmol/L (21-32); CHLORIDE 108 mmol/L (98-107); COR CA(FOR HYPOALB) 9.7 mg/dL (8.5-10.1); COR NA(FOR HYPERGLY) 149 mmol/L (136-145); CREATININE 2.15 mg/dL (0.55-1.02); SODIUM 148 mmol/L (136-145); TOTAL PROTEIN 6.1 g/dL (6.4-8.2); eGFR NON BLACK RACES 24 (>60)
[2020-02-10 05:45] LABS: LACTIC ACID 3.6 mmol/L (0.4-2.0)
--- NOTE | 2020-02-10 05:55 | RAD ---
STUDY: CHEST, 1 VIEWCOMPARISON: February 08, 2020HISTORY: RESPIRATORY DISTRESSFINDINGS:Right chemotherapy port is stable. Cardiomediastinal contour is stable. Pleural parenchymal lung markings are unchanged. No consolidation is seen. No evidence of pleural effusion or pneumothorax.IMPRESSION:There is no significant change from prior studyElectronically signed by: Ken Anna (Feb 10, 2020 05:53:10)
[2020-02-10 06:13] LABS: PLATELET MORPHOLOGY COMMENT NORMAL (NORMAL)
[2020-02-10 06:14] LABS: ANISOCYTOSIS 1+; STOMATOCYTES 2+
[2020-02-10 08:59] LABS: AMYLASE 54 Units/L (25-115); LIPASE 186 Units/L (73-393)
[2020-02-10] MEDS ORDERED: LEVAQUIN PREMIX IV 750 MG 750 MG/150 ML BAG IV ONE (09:13)
[2020-02-10] MEDS: PROTONIX INJ 40 MG VIAL IVP SCH ×2 (09:16→21:02)
[2020-02-10] MEDS: SYNTHROID 25 mcg TAB PO SCH (09:16)
[2020-02-10] MEDS: NYSTATIN CREAM TOP SCH ×2 (09:16→21:02)
[2020-02-10] MEDS: CHRONULAC PO SCH ×2 (09:24→17:31)
[2020-02-10] MEDS: PAXIL PO SCH (09:24)
[2020-02-10 09:46] LABS: BILIRUBIN,URINE 2+ (NEGATIVE); BLOOD/HEMOGLOBIN,URINE 4+ (NEGATIVE); GLUCOSE, URINE NEGATIVE (NEGATIVE); KETONES,URINE 2+ (NEGATIVE); LEUKOCYTE ESTERASE ,URINE 2+ (NEGATIVE); NITRITES,URINE POSITIVE (NEGATIVE); PROTEIN,URINE 4+ (NEGATIVE); UROBILINOGEN,URINE 3+ (NORMAL)
[2020-02-10 09:58] LABS: AMORPHOUS SEDIMENT,UR 1+ /HPF (NEGATIVE); APPEARANCE,URINE CLOUDY (CLEAR); BACTERIA,URINE 2+ /HPF (NEGATIVE); COLOR,URINE BROWN (YELLOW); SQUAMOUS EPITHELIAL CELL,UR RARE /HPF (NEGATIVE)
--- NOTE | 2020-02-10 11:52 | CT ---
HISTORYABD PAINSTUDYABDOMEN/PELVIS W/O [id number]/2020TECHNIQUEMultiple axial images of the abdomen and pelvis were obtained from the lung bases to the pubic symphysis without the administration of IV contrast. Dose reduction techniques including Automated Exposure Control (AEC) and adjustment of mA and kV were utilized.FINDINGS[The lung bases demonstrate centrilobular emphysema with mosaic attenuation within the lung bases. Mild subpleural scarring is noted bilaterally. Severe steatosis of the liver with enlargement measuring 20 cm in craniocaudal dimension. No focal hepatic lesion is identified. Previous cholecystectomy. Bile ducts are normal in caliber. The spleen is normal. There is mild stranding adjacent to the pancreatic tail. The pancreatic duct is normal in caliber. Suspected punctate calcification within the pancreatic head. Adrenal glands are unremarkable. The right kidney contains enlarged nonobstructing stone within the lower pole with additional nonobstructing stones within the mid pole. Small cyst within the lower pole of the right kidney. The left kidney demonstrates a small cyst projecting from the midpole without nephrolithiasis or hydronephrosis. Upper GI tract demonstrates no evidence of mass or obstruction. Urinary bladder is collapsed around a Giron catheter. The rectum is normal. Previous rectosigmoid anastomosis without complication. There is slight redundancy of the sigmoid flexure of the colon without evidence of obstruction or mass. Terminal ileum is normal. The appendix is not definitely seen. No pelvic free fluid. Abdominal aorta is normal in caliber with moderate calcified atherosclerotic disease. Review of bone windows demonstrates no acute osseous abnormality.IMPRESSIONStranding surrounding the pancreatic tail raises the suspicion for an acute pancreatitis. Correlation with lipase levels is recommended. Given limitations of a noncontrast examination underlying pancreatic tail lesion is not excluded and correlation with follow-up CT examination with IV contrast is recommended for improved characterization.Hepatic steatosis and hepatomegaly without focal hepatic lesion.Nonobstructing right nephrolithiasis.Previous anastomosis of the rectosigmoid junction without complication or evidence of acute colitis/diverticulitis.Additional incidental, nonacute findings as described above.Electronically signed by: SYLVIE MAGDALENO (Feb 10, 2020 11:49:07)
[2020-02-10] MEDS ORDERED: ROCEPHIN VIAL 1 GRAM 1 G in NS 100 ML IV + SPIKE MINIBAG* 100 ML IV SCH (13:51)
[2020-02-10] MEDS ORDERED: LASIX IVP SCH (14:00)
[2020-02-10] MEDS ORDERED: NS 1/2 1000 ML IV 1,000 ML IV ONE (18:12)
[2020-02-10] MEDS ORDERED: NS 1/2 1000 ML IV 1,000 ML IV SCH (19:00)
[2020-02-10] MEDS: LEVAQUIN PREMIX IV 750 MG 750 MG/150 ML BAG IV SCH (21:02)
[2020-02-11] MEDS ORDERED: VASOSTRICT IV SCH ×2
[2020-02-11] MEDS: DUONEB 0.5 MG/3 MG (3 mL) NEB SCH ×5 (00:52→18:52)
[2020-02-11] MEDS: CHRONULAC PO SCH ×3 (03:06→16:21)
[2020-02-11] MEDS: CARDIZEM TAB 30 MG PLAIN PO SCH ×2 (03:06→13:02)
[2020-02-11 05:11] LABS: ABG ALLEN TEST POS
--- NOTE | 2020-02-11 05:34 | RAD ---
STUDY: FRONTAL VIEW CHESTCOMPARISON: February 10, 2020HISTORY: CHFFINDINGS:Right chemotherapy port is stable.No focal consolidation is seen.The heart size is within normal limits.The mediastinum is unremarkable.There is no evidence of pleural effusion or gross pneumothorax.The trachea is midline.IMPRESSION:1. No focal consolidation is seen.2. The heart size is normal. There is no radiographic evidence of pulmonary edema. Overall there is interval decrease in the amount of interstitial lung markings when compared to the prior study suggesting decrease in the amount of fluid overload.Electronically signed by: Ken Anna (Feb 11, 2020 05:32:40)
[2020-02-11 05:44] LABS: ABG BASE EXCESS 0.3 mmol/L (-2.0-2.0); ABG HCO3 24.6 mmol/L (22-26)
[2020-02-11 06:26] VITALS: BP 85/52
[2020-02-11 06:30] LABS: ALANINE AMINOTRANSFERASE < 6 Units/L (12-78); ALBUMIN 2.3 g/dL (3.4-5.0); ALKALINE PHOSPHATASE 186 Units/L (46-116); ASPARTATE AMINO TRANSFERASE 100 Units/L (15-37); BLOOD UREA NITROGEN 65 mg/dL (7-18); CALCIUM 8.3 mg/dL (8.5-10.1); CARBON DIOXIDE 22.2 mmol/L (21-32); CHLORIDE 107 mmol/L (98-107); COR CA(FOR HYPOALB) 9.7 mg/dL (8.5-10.1); CREATININE 3.38 mg/dL (0.55-1.02); TOTAL PROTEIN 6.7 g/dL (6.4-8.2); eGFR NON BLACK RACES 14 (>60)
[2020-02-11 06:31] LABS: LACTIC ACID 8.4 mmol/L (0.4-2.0)
[2020-02-11 06:36] LABS: AMMONIA 42 umol/L (11-32)
[2020-02-11 06:41] LABS: BASOPHILS # (AUTO) 0.2 X10^3/uL (0.0-0.1); BASOPHILS % (AUTO) 0.9 % (0.2-1.0); EOSINOPHILS % (AUTO) 0.2 % (0.9-2.9); LYMPHOCYTES # (AUTO) 1.7 X10^3/uL (1.3-2.9); LYMPHOCYTES % (AUTO) 10.3 % (21.0-51.0); MEAN CORPUSCULAR HEMOGLOBIN 26.8 pg (27.0-34.0); MEAN CORPUSCULAR HGB CONC 31.1 g/dL (33.0-35.0); MEAN CORPUSCULAR VOLUME 86.1 fL (80.0-100.0); MEAN PLATELET VOLUME 8.1 fL (7.4-11.0); MONOCYTES # (AUTO) 1.3 x10^3/uL (0.3-0.8); MONOCYTES % (AUTO) 8.1 % (0.0-13.0); NEUTROPHILS # (AUTO) 13.1 x10^3/uL (2.2-4.8); NEUTROPHILS % (AUTO) 80.5 % (42.0-75.0); PLATELET COUNT 370 X10^3/uL (150.0-450.0); RED BLOOD COUNT 1.82 X10^6/uL (3.5-5.4); RED CELL DISTRIBUTION WIDTH 24.8 % (11.6-16.5); WHITE BLOOD COUNT 16.3 X10^3/uL (3.6-10.0)
[2020-02-11 06:47] LABS: SODIUM 152 mmol/L (136-145)
[2020-02-11 06:48] LABS: HEMATOCRIT 15.6 % (36.0-47.0); HEMOGLOBIN 4.9 g/dL (12.0-16.0)
[2020-02-11 07:14] LABS: ANISOCYTOSIS 3+; HYPOCHROMASIA 3+; PLATELET MORPHOLOGY COMMENT NORMAL (NORMAL); STOMATOCYTES FEW
[2020-02-11 09:21] LABS: ABG BASE EXCESS -9.9 mmol/L (-2.0-2.0)
[2020-02-11] MEDS ORDERED: TYLENOL SUPP 650 MG ONE (09:21)
[2020-02-11 09:22] LABS: ABG ALLEN TEST POS; ABG HCO3 16.1 mmol/L (22-26)
[2020-02-11] MEDS ORDERED: NS IV SCH ×3 (10:00)
[2020-02-11] MEDS ORDERED: TOBRAMYCIN SULFATE IV SCH (10:00)
[2020-02-11] MEDS ORDERED: ATIVAN INJ 2 MG VIAL IVP NR (10:00)
[2020-02-11] MEDS ORDERED: NS 1000 ML 1,000 ML IV ONE (10:00)
[2020-02-11] MEDS ORDERED: MERREM VIAL 500 MG in NS 50 ML IV + SPIKE MINIBAG* 50 ML IV SCH (10:00)
[2020-02-11] MEDS ORDERED: ROCEPHIN VIAL 2 GRAMS 2 G in NS 100 ML IV + SPIKE MINIBAG* 100 ML IV SCH (10:00)
[2020-02-11] MEDS ORDERED: VANCOMYCIN HCL 1 G in NS 250 ML IV 250 ML IV SCH (10:00)
[2020-02-11] MEDS ORDERED: NS 1000 ML 1,000 ML IV SCH (10:00)
[2020-02-11 10:10] LABS: BASOPHILS # (AUTO) 0.2 X10^3/uL (0.0-0.1); BASOPHILS % (AUTO) 0.6 % (0.2-1.0); EOSINOPHILS # (AUTO) 0.1 x10^3/uL (0.0-0.2); EOSINOPHILS % (AUTO) 0.2 % (0.9-2.9); LYMPHOCYTES # (AUTO) 4.8 X10^3/uL (1.3-2.9); MEAN CORPUSCULAR HEMOGLOBIN 26.7 pg (27.0-34.0); MEAN CORPUSCULAR HGB CONC 29.3 g/dL (33.0-35.0); MEAN CORPUSCULAR VOLUME 91.2 fL (80.0-100.0); MEAN PLATELET VOLUME 8.7 fL (7.4-11.0); MONOCYTES # (AUTO) 2.4 x10^3/uL (0.3-0.8); MONOCYTES % (AUTO) 9.1 % (0.0-13.0); NEUTROPHILS # (AUTO) 19.3 x10^3/uL (2.2-4.8); NEUTROPHILS % (AUTO) 72.1 % (42.0-75.0); PLATELET COUNT 492 X10^3/uL (150.0-450.0); RED BLOOD COUNT 1.82 X10^6/uL (3.5-5.4); RED CELL DISTRIBUTION WIDTH 27.3 % (11.6-16.5); WHITE BLOOD COUNT 26.7 X10^3/uL (3.6-10.0)
[2020-02-11 10:13] LABS: HEMATOCRIT 16.6 % (36.0-47.0); HEMOGLOBIN 4.9 g/dL (12.0-16.0)
--- NOTE | 2020-02-11 10:13 | RAD ---
HISTORYET TUBE PLACEMENTSTUDYPortable AP chestCOMPARISONToday at 4:43 a.m.FINDINGSThere is an endotracheal tube in satisfactory position and a nasogastric tube in the fundus of the stomach. There is a stable right subclavian Port-A-Cath. The heart size is normal. There is chronic interstitial lung disease. There is no consolidation or effusion.IMPRESSIONSatisfactory portable chest and tube placementsElectronically signed by: DALIA MACK (Feb 11, 2020 10:12:06)
[2020-02-11] MEDS: ZOVIRAX VIAL 500 MG 500 MG in NS 100 ML IV + SPIKE MINIBAG* 100 ML IV SCH ×2 (10:20→15:28)
[2020-02-11] MEDS ORDERED: DIPRIVAN PREMIX 1 GRAM IV 1,000 MG/100 ML VIAL IV PRN (11:00)
[2020-02-11] MEDS ORDERED: PRECEDEX 400 MCG/100 ML PREMIX 400 MCG/100 ML INFUS..BTL IV PRN (11:00)
[2020-02-11 11:08] LABS: BAND NEUTROPHILS % 5 % (0-10); METAMYELOCYTES % 2; PLATELET MORPHOLOGY COMMENT NORMAL (NORMAL)
[2020-02-11 11:10] LABS: ANISOCYTOSIS 3+; HYPOCHROMASIA 3+; STOMATOCYTES FEW
[2020-02-11] MEDS: NYSTATIN CREAM TOP SCH (12:01)
[2020-02-11] MEDS: SYNTHROID 25 mcg TAB PO SCH (12:02)
[2020-02-11] MEDS: PAXIL PO SCH (12:02)
[2020-02-11] MEDS: PROTONIX INJ 40 MG VIAL IVP SCH (13:00)
[2020-02-11] MEDS ORDERED: LEVOPHED INJ 8 MG in D5W 250 ML IV 242 ML IV PRN (13:49)
[2020-02-11 14:01] LABS: ABG BASE EXCESS -21.2 mmol/L (-2.0-2.0)
[2020-02-11 14:02] LABS: ABG HCO3 7.5 mmol/L (22-26)
[2020-02-11 14:32] LABS: HEMOGLOBIN 6.9 g/dL (12.0-16.0)
[2020-02-11] MEDS ORDERED: SODIUM BICARBONATE 8.4% INJ ADULT IVP ONE (14:45)
[2020-02-11 14:48] LABS: CKMB % 0.3 % (<4); CREATINE KINASE MB 1.3 ng/mL (0-4.0); TROPONIN I 0.12 ng/mL (0-1.5)
[2020-02-11] MEDS ORDERED: D5W IV SCH ×2 (15:00)
[2020-02-11] MEDS ORDERED: SODIUM BICARBONATE IV SCH ×2 (15:00)
[2020-02-11 15:22] LABS: ABG BASE EXCESS -17.7 mmol/L (-2.0-2.0)
[2020-02-11 15:24] LABS: ABG HCO3 9.8 mmol/L (22-26)
== END 2020-02-11 20:50 | disposition expired | DRG 871 ==
LOC: ER 19:58 → MED/SURG 19:58 → OBSVTOIN 02-07 01:10 → MED/SURG 02-07 02:46
PROVIDERS: ADMIT Internal Medicine; ATTEND Internal Medicine
DX: G40.89 Other seizures; N17.8 Other acute kidney failure; Z11.59 Encounter for screening for other viral diseases; I12.9 Hypertensive chronic kidney disease with stage 1 through stage 4 chronic kidney disease, or unspecified chronic kidney disease; J18.8 Other pneumonia, unspecified organism; J44.9 Chronic obstructive pulmonary disease, unspecified; E66.01 Morbid (severe) obesity due to excess calories; K85.90 Acute pancreatitis without necrosis or infection, unspecified; I95.89 Other hypotension; I87.2 Venous insufficiency (chronic) (peripheral); R41.82 Altered mental status, unspecified; J96.21 Acute and chronic respiratory failure with hypoxia; N18.3 Chronic kidney disease, stage 3 (moderate); Z99.81 Dependence on supplemental oxygen; R65.21 Severe sepsis with septic shock; A41.9 Sepsis, unspecified organism; R94.31 Abnormal electrocardiogram [ECG] [EKG]; I46.9 Cardiac arrest, cause unspecified; Z66 Do not resuscitate; D64.89 Other specified anemias; K72.00 Acute and subacute hepatic failure without coma
CPT/HCPCS: 36415; 36430; 36556; 36600; 70450; 71010; 71045; 74176; 80053; 81001; 82140; 82150; 82270; 82550; 82553; 82607; 82728; 82746; 82803; 83540; 83605; 83690; 83735; 84466; 84484; 85014; 85018; 85025; 85610; 86850; 86880; 86900; 86901; 86922; 87040; 87086; 87088; 87186; 87635; 93005; 94640; 94660; 94762; 96365; 96367; 96374; 96375; 99285; A4222; A4618; A7030; C9113; J0133; J0696; J1200; J1940; J1956; J2060; J2185; J2270; J2550; J2704; J2930; J3260; J3370; J3490; J7030; J7040; J7050; J7060; J7620; P9016